=== PATIENT | male | born 1960 | race Caucasian/White ===

== ENCOUNTER 2020-11-01 13:58 | Inpatient (IN) | payer MEDICAID, OTHER ==
[~2020-11-01] VITALS: Ht 185.4 cm; Wt 90.7 kg
[~2020-11-01 13:58] MED LIST: CLINDAMYCIN HC300 MG ORAL; HYDROCODON-ACE1 EA15 ORAL; METFORMIN HCL500 M1 ORAL
--- NOTE | 2020-11-01 14:33 | Emergency Room Report ---
History of Present Illness General Chief Complaint: Generalized Weakness Source: Patient, EMS Present Illness HPI Is a 60-year-old male states he has a history of alcohol abuse stopped drinking in September, fatty liver, diabetes, hypertension who was brought in from his house by EMS for failure to thrive. Patient states that he has not been feeling well and has been weak at home. He states that he has fallen several times. He complains of abdominal distention and right upper abdominal pain. He denies any history of paracentesis. He states that his landlord came to check on him and he was found in subpar living conditions therefore EMS brought him to the e mergency room. He denies any chest pain or shortness of breath. Patient is alert and oriented x3 but very slow to respond. Allergies: Coded Allergies: No Known Allergies (Unverified , 10/02/16) COVID-19 Screening Contact w/high risk pt: No Experienced COVID-19 symptoms?: No COVID-19 Testing performed FIRST AID OFFICER: No Nursing Documentation-[facility] Past Medical History: No History, Except For Hx Hypertension: Yes Hx Diabetes: Yes Review of Systems All Other Systems: negative except mentioned in HPI Physical Exam Vital Signs Date Time Temp Pulse Resp B/P (MAP) Pulse Ox O2 Delivery O2 Flow Rate FiO2 11/01/20 13:55 98.8 102 18 112/70 (84) 98 Room Air Sp02 EP Interpretation: reviewed, normal General Appearance: no apparent distress, alert, GCS 15, non-toxic, other - Disheveled Head: normocephalic, atraumatic Eyes: bilateral eye normal inspection, bilateral eye PERRL ENT: dry mucus membranes Neck: full range of motion, supple, no meningismus Respiratory: speaking full sentences, other - Mildly tachypneic Cardiovascular #1: tachycardia Gastrointestinal: other - Distended abdomen with ascites mild right upper quadrant tenderness with no guarding or rebound Rectal: deferred Musculoskeletal: normal range of motion 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 Due to a high probability of clinically significant, life threatening deterioration, the patient required my highest level of preparedness to intervene emergently and I personally spent this critical care time directly and personally managing the patient. This critical care time included obtaining a history; examining the patient; pulse oximetry; ordering and review of studies; arranging urgent treatment with development of a management plan; evaluation of patient's response to treatment; frequent reassessment; and, discussions with other providers.This critical care time was performed to assess and manage the high probability of imminent, life- threatening deterioration that could result in multi-organ failure. It was exclusive of separately billable procedures and treating other patients and teaching time. Please see MDM section and the rest of the note for further information on patient assessment and treatment. Medical Decision Making Diagnostic Impression: Primary Impression: Severe sepsis Additional Impressions: Hypokalemia Ascites Hepatic encephalopathy ER Course Patient placed on BiPAP. Patient presents with lactate of 12 and leukocytosis. Patient given 30 cc/kg of IV fluids and started on broad-spectrum antibiotics. Patient hypokalemic with potassium of 2.9. 30 mEq of IV potassium chloride have been ordered. Therapeutic paracentesis has been ordered and is pending at the time of admission. Patient's ammonia level is 90. Patient given oral lactu lose. Patient will be admitted for further treatment and evaluation. Laboratory Tests Test 11/01/20 14:05 11/01/20 14:15 11/01/20 14:59 Arterial Blood pH 7.615 (7.350-7.450) Arterial Blood Partial Pressure CO2 45.6 mmHg (35.0-45.0) H Arterial Blood Partial Pressure O2 69.4 mmHg (75.0-100.0) L Arterial Blood HCO3 45.3 mmol/L (22.0-26.0) *H Arterial Blood Oxygen Saturation 93.2 % (95-100) L Arterial Blood Base Excess 21.5 (-2-2) *H Miguel Test Positive White Blood Count 14.4 K/UL (4.8-10.8) H Red Blood Count 3.49 M/UL (4.70-6.10) L Hemoglobin 11.9 G/DL (14.2-18.0) L Hematocrit 35.9 % (42.0-52.0) L Mean Corpuscular Volume 103 FL (80-99) H Mean Corpuscular Hemoglobin 34.0 PG (27.0-31.0) H Mean Corpuscular Hemoglobin Concent 33.1 G/DL (32.0-36.0) Red Cell Distribution Width 18.9 % (11.6-14.8) H Platelet Count 276 K/UL (150-450) Mean Platelet Volume 6.5 FL (6.5-10.1) Neutrophils (%) (Auto) 84.2 % (45.0-75.0) H Lymphocytes (%) (Auto) 7.9 % (20.0-45.0) L Monocytes (%) (Auto) 7.3 % (1.0-10.0) Eosinophils (%) (Auto) 0.1 % (0.0-3.0) Basophils (%) (Auto) 0.6 % (0.0-2.0) Prothrombin Time 16.3 SEC (9.30-11.50) H Prothrombin Time INR 1.5 (0.9-1.1) H Activated Partial Thromboplast Time 31 SEC (23-33) Sodium Level 135 MMOL/L (136-145) L Potassium Level 2.9 MMOL/L (3.5-5.1) L Chloride Level 87 MMOL/L (98-107) L Carbon Dioxide Level 44 MMOL/L (21-32) *H Anion Gap 4 mmol/L (5-15) L Blood Urea Nitrogen 34 mg/dL (7-18) H Creatinine 2.4 MG/DL (0.55-1.30) H Estimated Glomerular Filtration Rate 27.9 mL/min (>60) Glucose Level 157 MG/DL (74-106) H Lactic Acid Level 4.80 mmol/L (0.4-2.0) H Calcium Level 8.5 MG/DL (8.5-10.1) Magnesium Level 2.2 MG/DL (1.8-2.4) Total Bilirubin 4.0 MG/DL (0.2-1.0) H Direct Bilirubin 2.4 MG/DL (0.0-0.3) H Aspartate Amino Transferase (AST) 56 U/L (15-37) H Alanine Aminotransferase (ALT) 10 U/L (12-78) L Alkaline Phosphatase 104 U/L (46-116) Ammonia 89 umol/L (11-32) H Total Creatine Kinase 42 U/L (26-308) Troponin I 0.000 ng/mL (0.000-0.056) Pro-B-Type Natriuretic Peptide 939 pg/mL (0-125) H Total Protein 7.0 G/DL (6.4-8.2) Albumin 1.7 G/DL (3.4-5.0) L Globulin 5.3 g/dL Albumin/Globulin Ratio 0.3 (1.0-2.7) L Lipase 177 U/L (73-393) POC Whole Blood Glucose 153 MG/DL (74-106) H Microbiology Date/Time Source Procedure Growth Status 11/01/20 14:55 Nasal Nares - Final Complete 11/01/20 14:55 Nasal Nares - Final Complete EKG Diagnostic Results Troponin ordered: Yes When was troponin ordered?: Nov 01, 2020 EKG Time: 15:11 EP Interpretation: Cecilia Ahn MD Rate: tachycardiac - 103 bpm Rhythm: other - Sinus tachycardia ST Segments: no acute changes Other Impression prolonged QT ASA given to the pt in ED: No Rhythm Strip Diag. Results Rhythm Strip Time: 14:51 EP Interpretation: yes - Cecilia Ahn MD Rate: 108 bpm Rhythm: NSR, no PVC's, no ectopy Chest X-Ray Diagnostic Results Chest X-Ray Diagnostic Results : Chest X-Ray Ordered: Yes # of Views/Limited/Complete: 1 View Indication: Shortness of Breath EP Interpretation: Yes Interpretation: no consolidation, no effusion, no pneumothorax, no acute cardiopulmonary disease Impression: No acute disease Electronically Signed by: Cecilia Ahn MD Last Vital Signs Date Time Temp Pulse Resp B/P (MAP) Pulse Ox O2 Delivery O2 Flow Rate FiO2 11/01/20 13:55 98.8 102 18 112/70 (84) 98 Room Air Disposition: ADMITTED INPATIENT - SDU Condition: Critical - Dr. Cece MD 345pm Referrals: NOT CHOSEN IPA/,REFERRING (PCP) Additional Instructions: Please note that this report is being documented using [employer] technology. This can lead to erroneous entry secondary to incorrect interpretation by the dictating instrument. Sepsis Event Note Evaluation Current Stage of Sepsis: Severe Sepsis Possible Source: Unknown Focused Exam Allergies: Coded Allergies: No Known Allergies (Unverified , 10/02/16) Date Exam Occurred: Nov 01, 2020 Time Exam Occurred: 15:15 Laboratory Studies Laboratory Tests Test 11/01/20 14:05 11/01/20 14:15 11/01/20 14:59 Arterial Blood pH 7.615 (7.350-7.450) Arterial Blood Partial Pressure CO2 45.6 mmHg (35.0-45.0) H Arterial Blood Partial Pressure O2 69.4 mmHg (75.0-100.0) L Arterial Blood HCO3 45.3 mmol/L (22.0-26.0) *H Arterial Blood Oxygen Saturation 93.2 % (95-100) L Arterial Blood Base Excess 21.5 (-2-2) *H Miguel Test Positive White Blood Count 14.4 K/UL (4.8-10.8) H Red Blood Count 3.49 M/UL (4.70-6.10) L Hemoglobin 11.9 G/DL (14.2-18.0) L Hematocrit 35.9 % (42.0-52.0) L Mean Corpuscular Volume 103 FL (80-99) H Mean Corpuscular Hemoglobin 34.0 PG (27.0-31.0) H Mean Corpuscular Hemoglobin Concent 33.1 G/DL (32.0-36.0) Red Cell Distribution Width 18.9 % (11.6-14.8) H Platelet Count 276 K/UL (150-450) Mean Platelet Volume 6.5 FL (6.5-10.1) Neutrophils (%) (Auto) 84.2 % (45.0-75.0) H Lymphocytes (%) (Auto) 7.9 % (20.0-45.0) L Monocytes (%) (Auto) 7.3 % (1.0-10.0) Eosinophils (%) (Auto) 0.1 % (0.0-3.0) Basophils (%) (Auto) 0.6 % (0.0-2.0) Prothrombin Time 16.3 SEC (9.30-11.50) H Prothromb Time International Ratio 1.5 (0.9-1.1) H Activated Partial Thromboplast Time 31 SEC (23-33) Sodium Level 135 MMOL/L (136-145) L Potassium Level 2.9 MMOL/L (3.5-5.1) L Chloride Level 87 MMOL/L (98-107) L Carbon Dioxide Level 44 MMOL/L (21-32) *H Anion Gap 4 mmol/L (5-15) L Blood Urea Nitrogen 34 mg/dL (7-18) H Creatinine 2.4 MG/DL (0.55-1.30) H Estimat Glomerular Filtration Rate 27.9 mL/min (>60) Glucose Level 157 MG/DL (74-106) H Lactic Acid Level 4.80 mmol/L (0.4-2.0) H Calcium Level 8.5 MG/DL (8.5-10.1) Magnesium Level 2.2 MG/DL (1.8-2.4) Total Bilirubin 4.0 MG/DL (0.2-1.0) H Direct Bilirubin 2.4 MG/DL (0.0-0.3) H Aspartate Amino Transf (AST/SGOT) 56 U/L (15-37) H Alanine Aminotransferase (ALT/SGPT) 10 U/L (12-78) L Alkaline Phosphatase 104 U/L (46-116) Ammonia 89 umol/L (11-32) H Total Creatine Kinase 42 U/L (26-308) Troponin I 0.000 ng/mL (0.000-0.056) Pro-B-Type Natriuretic Peptide 939 pg/mL (0-125) H Total Protein 7.0 G/DL (6.4-8.2) Albumin 1.7 G/DL (3.4-5.0) L Globulin 5.3 g/dL Albumin/Globulin Ratio 0.3 (1.0-2.7) L Lipase 177 U/L (73-393) POC Whole Blood Glucose 153 MG/DL (74-106) H Vital Signs Last 24 Hour Vital Signs Date Time Temp Pulse Resp B/P (MAP) Pulse Ox O2 Delivery O2 Flow Rate FiO2 11/01/20 13:55 98.8 102 18 112/70 (84) 98 Room Air Respiratory Exam: Diminished Air Movement Cardiovascular Exam: Tachycardia Capillary Refill: Less Than 2 Seconds Peripheral Pulse: Cecilia Reese M.D. Nov 01, 2020 14:33
[2020-11-01 14:37] LABS: BASOPHILS % (AUTO) 0.6 % (0.0-2.0); EOSINOPHILS % (AUTO) 0.1 % (0.0-3.0); HEMATOCRIT 35.9 % (42.0-52.0); HEMOGLOBIN 11.9 G/DL (14.2-18.0); LYMPHOCYTES % (AUTO) 7.9 % (20.0-45.0); MEAN CORPUSCULAR VOLUME 103 FL (80-99); MONOCYTES % (AUTO) 7.3 % (1.0-10.0); NEUTROPHILS % (AUTO) 84.2 % (45.0-75.0); PLATELET COUNT 276 K/UL (150-450); RED BLOOD COUNT 3.49 M/UL (4.70-6.10); RED CELL DISTRIBUTION WIDTH 18.9 % (11.6-14.8); WHITE BLOOD COUNT 14.4 K/UL (4.8-10.8)
[2020-11-01 14:48] LABS: INR 1.5 (0.9-1.1)
[2020-11-01 14:51] LABS: AMMONIA 89 umol/L (11-32)
--- NOTE | 2020-11-01 15:02 | NUR ---
ED Nurse Note: pt tranported to and from CT, flu swab/covid swabs completed. pink top drawn and all labs sent. reported critical lactic to ER MD of 12.8, orders will follow
[2020-11-01 15:07] LABS: ALANINE AMINOTRANSFERASE 10 U/L (12-78); ALBUMIN 1.7 G/DL (3.4-5.0); ALBUMIN/GLOBULIN RATIO 0.3 (1.0-2.7); ALKALINE PHOSPHATASE 104 U/L (46-116); ANION GAP 4 mmol/L (5-15); ASPARTATE AMINO TRANSFERASE 56 U/L (15-37); BLOOD UREA NITROGEN 34 mg/dL (7-18); CALCIUM 8.5 MG/DL (8.5-10.1); CHLORIDE 87 MMOL/L (98-107); CREATINE KINASE 42 U/L (26-308); CREATININE 2.4 MG/DL (0.55-1.30); POTASSIUM 2.9 MMOL/L (3.5-5.1); SODIUM 135 MMOL/L (136-145)
[2020-11-01 15:10] LABS: CARBON DIOXIDE 44 MMOL/L (21-32)
[2020-11-01 15:11] LABS: BILIRUBIN,DIRECT 2.4 MG/DL (0.0-0.3)
[2020-11-01] MEDS ORDERED: Cefepime HCl 2 GM in D5W 55 ML IVPB ONE (15:15)
[2020-11-01] MEDS ORDERED: Vancomycin 1 GM in NS 275 ML IVPB ONE (15:15)
[2020-11-01] MEDS ORDERED: Lactulose 20gm/30ml UDC ORAL ONE (15:15)
[2020-11-01 15:45] VITALS: BP 112/70
--- NOTE | 2020-11-01 16:16 | Diagnostic Imaging Report ---
EXAM: CT CT Abdomen Pelvis WO Contrast INDICATION: Abdominal pain. COMPARISON: None TECHNIQUE: Axial images were obtained through the abdomen pelvis without intravenous contrast. Sagittal and coronal reformats are generated. All CT scans at this facility are performed using dose modulation techniques as appropriate to a performed exam including the following: automated exposure control with adjustment of the mA and/or kV according to patient size. RADIATION DOSE: CTDIvol: 19 mGy DLP: 784.4 mGy-cm Dose information generated by the CT scanner is available in PACS. FINDINGS: There is compressive atelectasis right lower lobe. Small right effusion noted. Right hemidiaphragm is elevated. There is a large amount of ascites. Slight nodularity of the hepatic contour noted suggestive of underlying cirrhotic changes. Spleen contains some scattered granulomas. Gallbladder is isodense to liver likely containing tumefactive sludge. The pancreas is unremarkable. Adrenals are normal in morphology. The kidneys are normal in size, shape and axis. Small bowel loops are nondistended. The colon is also nondistended with average amount of stool. The appendix is not visualized. There is no free air. No pathologic adenopathy demonstrated. Urinary bladder appears unremarkable. Degenerative changes of the lumbar spine noted. IMPRESSION: CIRRHOSIS WITH LARGE AMOUNT OF ASCITES. SPLENIC GRANULOMAS. SLUDGE IN THE GALLBLADDER. SMALL RIGHT PLEURAL EFFUSION WITH COMPRESSIVE ATELECTASIS RIGHT LOWER LOBE. ELEVATED RIGHT HEMIDIAPHRAGM.
--- NOTE | 2020-11-01 16:17 | Diagnostic Imaging Report ---
EXAM: CT CT Head no Contrast INDICATION: Altered mental status. TECHNIQUE: Axial images of the brain were obtained with subsequent sagittal and coronal reformats. All CT scans at this facility are performed using dose modulation techniques as appropriate to a performed exam including the following: automated exposure control with adjustment of the mA and/or kV according to patient size. COMPARISON STUDY: None. RADIATION DOSE: CTDIvol: 53.4 mGy DLP: 1072.2 mGy-cm Dose information generated by the CT scanner is available in PACS. FINDINGS: There is mild age-related volume loss. There is no acute large territory cortical infarct, hemorrhage, mass effect or shift. Ventricles and cisterns as well as brainstem and posterior fossa appear unremarkable. The sellar region is normal. Sinuses, mastoid air cells and bony calvarium appear intact. IMPRESSION: No acute intracranial abnormality.
--- NOTE | 2020-11-01 16:35 | Diagnostic Imaging Report ---
Procedure: XRAY Chest 1v Reason for study: Shortness of breath. Comparison films: None. FINDINGS: A single one view chest is obtained. Vascularity is normal. Right hemidiaphragm is elevated. There may be right basilar airspace disease and effusion. Cardiac and mediastinal silhouette are within normal limits. Left CP angle is sharp. The bony thorax appear unremarkable. IMPRESSION: Elevated right hemidiaphragm. Possible right basilar airspace disease and right effusion.
[2020-11-01 16:43] VITALS: BP 102/70
--- NOTE | 2020-11-01 16:43 | History & Physical ---
History and Physical History & Physicial Patient is not able to consent for abdominal paracentesis at this time due to his mental status, this procedure needs to be done to help patient. I will sign consent on behave this patient. MD Malvin Good Payam MD Nov 01, 2020 16:43
--- NOTE | 2020-11-01 17:33 | NUR ---
ED Nurse Note: gave report to ROXI Lawton. sent meds up that needed to be given, iv meds infusing. took pt off bipap transported on monitor pt in no noted distress. pt has all belongings
--- NOTE | 2020-11-01 17:38 | NUR ---
NURSE NOTES: Received patient from ED. Report given by Josué Mooney. Patient in stable condition. No pain or discomfort noted at this time. Patient on Bipap 8/4 FiO2 30%. Patient belongings done. Patient AO x3. Skin intact. Bed in lowest position, locked with side rails x2 up. Call light within reach.
--- NOTE | 2020-11-01 18:49 | NUR ---
NURSE HAND-OFF REPORT: Important Events on Shift:Admitted to SDU from ER Patient Status: Stable Diet: CCHO M Pending Orders: NA Pending Results/Labs:NA Pending MD notification:NA Latest Vital Signs: Temperature 98.8 , Pulse 94 , B/P 102 /70 , Respiratory Rate 21 , O2 SAT 100 , Bi-pap, O2 Flow Rate . Vital Sign Comment: Stable EKG Rhythm: Sinus Rhythm Rhythm change?: N MD Notified?: - MD Response: Latest Childs Fall Score: 60 Fall Risk: High Risk Safety Measures: Call light Within Reach, Bed Alarm Zone 2, Side Rails Side Rails x1, Bed position Low and Locked. Fall Precautions: Yellow Socks Report given to pending.
--- NOTE | 2020-11-01 19:25 | NUR ---
NURSE NOTES: Received report from See. Jessica RN. Pt is lyin in bed in semi- shelton's position. pt is alert oriented x 2-3 with confusion. Pt is verbally responsive and follow simple commands. Pt has ascites, no diffculty of breathing noted or respiratory distress noted. Pt denies pain. Pt in BIPAP 8/4 fio2 30%, o2 sat- 100%. With LAC g20 intact and patent and Right wrist g22 intact and patent. no Coughing noted. Pt voids. Alarm- on, call light within reach. Bed in lowest position. Continue to plan of care.
[2020-11-01 20:00] VITALS: BP 102/61
[2020-11-01] MEDS: Heparin 5000 units/ml inj SUBQ SCH (20:45)
[2020-11-01] MEDS ORDERED: Vancomycin 500mg/D5W 110ml IVPB ONE ×2 (21:00)
[2020-11-01] MEDS: NovoLOG Insulin Flexpen SUBQ SCH (21:00)
[2020-11-01] MEDS ORDERED: Cefepime HCl 1 GM in D5W 55 ML IVPB SCH (21:00)
--- NOTE | 2020-11-01 22:00 | NUR ---
NURSE NOTES: Seen by Dr. Coombs, made him aware of ascites, order for paracentesis tomorrow AM. Made him aware pt is stable in 100% BIPAP and when patient was off bipap in 15min. Ordered to wean off pt to BIPAP.
[2020-11-01] MEDS: Piperacillin/Tazobactam 3.375 GM in NS 110 ML IVPB SCH (22:35)
--- NOTE | 2020-11-01 23:07 | NUR ---
NURSE NOTES: Unable to get a consent for paracentesis, pt is confused and family doesn't have number. Will add social service consult. Informed Dr. Coombs, per Dr. Coombs will wrote in progress noted that unable to contact family and consented that pt needed to undergone paracentesis.
[2020-11-02] VITALS (7 sets, daily range): BP systolic 96–126; BP diastolic 59–78
--- NOTE | 2020-11-02 00:24 | NUR ---
NURSE NOTES: Pt tolerating well the NRB mask at 100%.
--- NOTE | 2020-11-02 00:34 | NUR ---
NURSE NOTES: Per Dr. Coombs no need for gastro consult at this time.
--- NOTE | 2020-11-02 02:03 | NUR ---
NURSE NOTES: Cleaned pt, condom cath applied. Noted yellow urine. No distress. Noted Wound, wound care done. Ordered wound care eval. Bilateral heels floated.
--- NOTE | 2020-11-02 02:11 | NUR ---
NURSE NOTES: Noted an uneven shape on right foot, will refer in AM with Dr. Coombs.
--- NOTE | 2020-11-02 05:12 | NUR ---
NURSE NOTES: Pt is sleeping, follow commands, doesn't get up in bed, not pulling devices but with episode of confusion.
[2020-11-02] MEDS: Piperacillin/Tazobactam 3.375 GM in NS 110 ML IVPB SCH ×3 (05:28→21:35)
[2020-11-02] MEDS: NovoLOG Insulin Flexpen SUBQ SCH ×4 (05:34→21:34)
[2020-11-02 07:02] LABS: EOSINOPHILS % (AUTO) 0.4 % (0.0-3.0); HEMATOCRIT 28.9 % (42.0-52.0); HEMOGLOBIN 9.9 G/DL (14.2-18.0); MEAN CORPUSCULAR VOLUME 101 FL (80-99); MONOCYTES % (AUTO) 10.2 % (1.0-10.0); NEUTROPHILS % (AUTO) 79.4 % (45.0-75.0); PLATELET COUNT 201 K/UL (150-450); RED BLOOD COUNT 2.87 M/UL (4.70-6.10); RED CELL DISTRIBUTION WIDTH 18.8 % (11.6-14.8); WHITE BLOOD COUNT 12.1 K/UL (4.8-10.8)
[2020-11-02 07:30] LABS: ALBUMIN 1.7 G/DL (3.4-5.0); ALBUMIN/GLOBULIN RATIO 0.4 (1.0-2.7); BILIRUBIN,TOTAL 3.7 MG/DL (0.2-1.0); CALCIUM 8.2 MG/DL (8.5-10.1); CREATININE 2.1 MG/DL (0.55-1.30); PHOSPHORUS 4.4 MG/DL (2.5-4.9)
[2020-11-02 07:32] LABS: BILIRUBIN,DIRECT 2.1 MG/DL (0.0-0.3); POTASSIUM 2.5 MMOL/L (3.5-5.1)
--- NOTE | 2020-11-02 07:35 | NUR ---
NURSE HAND-OFF REPORT: Important Events on Shift: Wean off to venturi mask at 14L 55%- tolerating well. Pt for paracentesis (+) consent. Potassium lab just called endorsed to AM 2.5. AM nurse aware Patient Status: guarded and stable Diet: Consistent carb Pending Orders: NOne Pending Results/Labs: None Pending MD notification: none Latest Vital Signs: Temperature 97.9 , Pulse 89 , B/P 105 /71 , Respiratory Rate 21 , O2 SAT 100 , Bi-pap, O2 Flow Rate 15.0 . Vital Sign Comment: WNL EKG Rhythm: Sinus Rhythm Rhythm change?: N MD Notified?: - MD Response: Latest Childs Fall Score: 70 Fall Risk: High Risk Safety Measures: Call light Within Reach, Bed Alarm Zone 2, Side Rails Side Rails x3, Bed position Low and Locked. Fall Precautions: Yellow Socks Yellow Gown Door Sign Patient Fall Education Report given to [Mayra Card, RN].
--- NOTE | 2020-11-02 07:51 | NUR ---
NURSE NOTES: pt in bed awake and had breakfast. Pt on hospital monitor no signs of cardiac distress, on ventury mask. Pt complains of abdominal pain. Bed is locked and in lowest position call light within reach. pt will have a paracenthesis at bedside today. notified doctor Malvin about pt's latest labs.
[2020-11-02] MEDS ORDERED: Acetaminophen 500mg (ES) tab ORAL PRN (08:45)
[2020-11-02] MEDS: Heparin 5000 units/ml inj SUBQ SCH ×2 (08:45→20:29)
[2020-11-02] MEDS: Acetaminophen 500mg (ES) tab ORAL PRN (08:58)
[2020-11-02] MEDS: Lactulose 20gm/30ml UDC ORAL SCH ×3 (09:00→17:51)
--- NOTE | 2020-11-02 09:43 | Consultation ---
History of Present Illness General Date patient seen: Nov 02, 2020 Time patient seen: 12:08 Chief Complaint: Generalized Weakness Referring physician: Dr. Coombs Reason for Consultation: Sepsis Present Illness HPI 60yo M w/ h/o EtOH abuse who p/w failure to thrive. ID c/s given sepsis, possible infection. In house, pt has been AF but on BiPAP and now NRB mask for O2 sat. Leukocytosis to 14 improving on abx Distended abd w/ massive ascites Pt reports over the past few weeks has gotten progressively weaker, ultimately came in here. Abd has had progressive distension, never had paracentesis prior. TTP all over in abd but worse in RUQ. Denies any fevers/chills, NVD Endorses dysuria and pain w/ walking PMH: EtOH abuse, stopped drinking in Sep 2020 Tobacco use, 2ppd [id number], quit recently Prior drug use, none in past 2 years Fatty liver DM2 HTN Allergies: Coded Allergies: No Known Allergies (Unverified , 10/02/16) Medication History Scheduled Clindamycin Hcl (Clindamycin Hcl), 300 MG ORAL THREE TIMES A DAY Metformin Hcl* (Metformin Hcl*), 500 MG ORAL TWICE A DAY, (Reported) Scheduled PRN Hydrocodone/Acetaminophen 5-325* (Hydrocodone/Acetaminophen 5-325*), 1 TAB ORAL Q6H PRN for For Pain Patient History Healthcare decision maker N Resuscitation status Advanced Directive on File Review of Systems ROS Narrative 10-point neg except as noted in HPI Physical Exam Physical Exam Narrative Gen: NAD HEENT: NCAT, EOMI Pulm: BL chest rise Abd: Distended w/ massive ascites, TTP mildly diffusely and worse in RUQ, no rebound/guarding Ext: No c/c/e Skin: No visible rashes Neuro: Awake, interactive, very slow to answer questions Last 24 Hour Vital Signs Date Time Temp Pulse Resp B/P (MAP) Pulse Ox O2 Delivery O2 Flow Rate FiO2 11/02/20 08:00 97.5 97 22 111/78 (89) 98 11/02/20 04:00 89 11/02/20 04:00 97.9 87 21 105/71 (82) 100 11/02/20 04:00 15.0 11/02/20 04:00 Non-Rebreather 15.0 11/02/20 00:00 97.7 92 20 104/76 (85) 100 11/02/20 00:00 89 11/02/20 00:00 Bi-pap 11/01/20 21:00 15.0 11/01/20 20:00 Bi-pap 11/01/20 20:00 97.5 91 20 102/61 (75) 98 11/01/20 20:00 91 11/01/20 20:00 91 11/01/20 20:00 30 11/01/20 20:00 30 11/01/20 19:13 91 18 98 30 11/01/20 17:54 94 11/01/20 17:38 Bi-pap 11/01/20 16:43 98.8 94 21 102/70 100 Bi-pap 30 11/01/20 16:24 94 Room Air 11/01/20 15:45 98.8 95 18 112/70 99 Bi-pap 11/01/20 15:42 94 18 97 30 11/01/20 13:55 98.8 102 18 112/70 (84) 98 Room Air Intake and Output 11/01/20 11/02/20 19:00 07:00 Intake Total 0 ml 610.0 ml Balance 0 ml 610.0 ml Intake Oral 0 ml 500 ml IV Total 110.0 ml # Voids 2 # Bowel Movements 2 Laboratory Tests Test 11/01/20 14:05 11/01/20 14:15 11/01/20 14:59 11/02/20 06:09 Arterial Blood pH 7.615 (7.350-7.450) Arterial Blood Partial Pressure CO2 45.6 mmHg (35.0-45.0) H Arterial Blood Partial Pressure O2 69.4 mmHg (75.0-100.0) L Arterial Blood HCO3 45.3 mmol/L (22.0-26.0) *H Arterial Blood Oxygen Saturation 93.2 % (95-100) L Arterial Blood Base Excess 21.5 (-2-2) *H Miguel Test Positive White Blood Count 14.4 K/UL (4.8-10.8) H 12.1 K/UL (4.8-10.8) H Red Blood Count 3.49 M/UL (4.70-6.10) L 2.87 M/UL (4.70-6.10) L Hemoglobin 11.9 G/DL (14.2-18.0) L 9.9 G/DL (14.2-18.0) L Hematocrit 35.9 % (42.0-52.0) L 28.9 % (42.0-52.0) L Mean Corpuscular Volume 103 FL (80-99) H 101 FL (80-99) H Mean Corpuscular Hemoglobin 34.0 PG (27.0-31.0) H 34.6 PG (27.0-31.0) H Mean Corpuscular Hemoglobin Concent 33.1 G/DL (32.0-36.0) 34.3 G/DL (32.0-36.0) Red Cell Distribution Width 18.9 % (11.6-14.8) H 18.8 % (11.6-14.8) H Platelet Count 276 K/UL (150-450) 201 K/UL (150-450) Mean Platelet Volume 6.5 FL (6.5-10.1) 6.2 FL (6.5-10.1) L Neutrophils (%) (Auto) 84.2 % (45.0-75.0) H 79.4 % (45.0-75.0) H Lymphocytes (%) (Auto) 7.9 % (20.0-45.0) L 8.0 % (20.0-45.0) L Monocytes (%) (Auto) 7.3 % (1.0-10.0) 10.2 % (1.0-10.0) H Eosinophils (%) (Auto) 0.1 % (0.0-3.0) 0.4 % (0.0-3.0) Basophils (%) (Auto) 0.6 % (0.0-2.0) 2.0 % (0.0-2.0) Prothrombin Time 16.3 SEC (9.30-11.50) H Prothromb Time International Ratio 1.5 (0.9-1.1) H Activated Partial Thromboplast Time 31 SEC (23-33) Sodium Level 135 MMOL/L (136-145) L 136 MMOL/L (136-145) Potassium Level 2.9 MMOL/L (3.5-5.1) L 2.5 MMOL/L (3.5-5.1) *L Chloride Level 87 MMOL/L (98-107) L 89 MMOL/L (98-107) L Carbon Dioxide Level 44 MMOL/L (21-32) *H 39 MMOL/L (21-32) H Anion Gap 4 mmol/L (5-15) L 9 mmol/L (5-15) Blood Urea Nitrogen 34 mg/dL (7-18) H 33 mg/dL (7-18) H Creatinine 2.4 MG/DL (0.55-1.30) H 2.1 MG/DL (0.55-1.30) H Estimat Glomerular Filtration Rate 27.9 mL/min (>60) 32.6 mL/min (>60) Glucose Level 157 MG/DL (74-106) H 105 MG/DL (74-106) Lactic Acid Level 4.80 mmol/L (0.4-2.0) H Calcium Level 8.5 MG/DL (8.5-10.1) 8.2 MG/DL (8.5-10.1) L Magnesium Level 2.2 MG/DL (1.8-2.4) 2.0 MG/DL (1.8-2.4) Total Bilirubin 4.0 MG/DL (0.2-1.0) H 3.7 MG/DL (0.2-1.0) H Direct Bilirubin 2.4 MG/DL (0.0-0.3) H 2.1 MG/DL (0.0-0.3) H Aspartate Amino Transf (AST/SGOT) 56 U/L (15-37) H 48 U/L (15-37) H Alanine Aminotransferase (ALT/SGPT) 10 U/L (12-78) L 9 U/L (12-78) L Alkaline Phosphatase 104 U/L (46-116) 91 U/L (46-116) Ammonia 89 umol/L (11-32) H 69 umol/L (11-32) H Total Creatine Kinase 42 U/L (26-308) Troponin I 0.000 ng/mL (0.000-0.056) Pro-B-Type Natriuretic Peptide 939 pg/mL (0-125) H Total Protein 7.0 G/DL (6.4-8.2) 6.3 G/DL (6.4-8.2) L Albumin 1.7 G/DL (3.4-5.0) L 1.7 G/DL (3.4-5.0) L Globulin 5.3 g/dL 4.6 g/dL Albumin/Globulin Ratio 0.3 (1.0-2.7) L 0.4 (1.0-2.7) L Lipase 177 U/L (73-393) POC Whole Blood Glucose 153 MG/DL (74-106) H Phosphorus Level 4.4 MG/DL (2.5-4.9) Hepatitis A IgM Antibody Pending Hepatitis B Surface Antigen Pending Hepatitis B Core IgM Antibody Pending Hepatitis C Antibody Pending HIV (1&2) Antibody Rapid Pending Microbiology Date/Time Source Procedure Growth Status 11/01/20 14:55 Nasal Nares - Final Complete 11/01/20 14:55 Nasal Nares - Final Complete Height (Feet): 6 Height (Inches): 1.00 Weight (Pounds): 200 Medications Current Medications Medications (Trade) Dose Ordered Sig/Kylah Route PRN Reason Start Time Stop Time Status Last Admin Dose Admin Acetaminophen (Tylenol) 500 mg Q6H PRN ORAL Mild Pain 11/02/20 08:30 12/02/20 08:29 11/02/20 08:58 Acetaminophen (Tylenol) 500 mg Q6H PRN ORAL fever > 100.2 11/02/20 08:45 12/02/20 08:44 Dextrose (Dextrose 50%) 25 ml Q30M PRN IV Hypoglycemia 11/01/20 18:30 01/30/21 18:29 Dextrose (Dextrose 50%) 50 ml Q30M PRN IV Hypoglycemia 11/01/20 18:30 01/30/21 18:29 Heparin Sodium (Porcine) (Heparin 5000 units/ml) 5,000 units EVERY 12 HOURS SUBQ 11/01/20 21:00 12/16/20 20:59 11/01/20 20:45 Insulin Aspart (NovoLOG) BEFORE MEALS AND HS SUBQ 11/01/20 21:00 01/30/21 20:59 Lactulose (Cephulac) 30 gm THREE TIMES A DAY ORAL 11/02/20 09:00 12/02/20 08:59 11/02/20 09:00 Magnesium Sulfate 100 ml @ 100 mls/hr ONCE ONCE IVPB 11/02/20 08:45 11/02/20 09:44 Piperacillin Sod/ Tazobactam Sod 3.375 gm/Sodium Chloride 110 ml @ 27.5 mls/hr EVERY 8 HOURS IVPB 11/01/20 22:00 11/06/20 21:59 11/02/20 05:28 Potassium Chloride 100 ml @ 100 mls/hr Q1H IVPB 11/02/20 09:00 11/02/20 12:59 11/02/20 09:00 Potassium Chloride (K-Dur) 40 meq ONCE ORAL 11/02/20 08:30 11/02/20 10:30 11/02/20 08:56 Potassium Chloride (K-Dur) 40 meq ONCE ORAL 11/02/20 16:30 11/02/20 18:30 Vancomycin HCl (Vanco pharmacy to dose) 1 ea DAILY PRN MISC Per rx protocol 11/01/20 18:30 12/01/20 18:29 Assessment/Plan Assessment/Plan: 60yo M with: Sepsis Afebrile Hypoxia on BiPAP >> NRB mask >> venti mask Leukocytosis to 14, improving Lymphopenia 11/01 BCx p COVID PCR p CXR: Elevated right hemidiaphragm. Possible right basilar airspace disease and right effusion. CTH: No acute process EtOH abuse Cirrhosis, Fatty liver Masive ascites Elevated AST to 48 Acute hep panel p 11/01 CT A/P: CIRRHOSIS WITH LARGE AMOUNT OF ASCITES. SPLENIC GRANULOMAS. SLUDGE IN THE GALLBLADDER. SMALL RIGHT PLEURAL EFFUSION WITH COMPRESSIVE ATELECTASIS RIGHT LOWER LOBE. ELEVATED RIGHT HEMIDIAPHRAGM. 11/02 Paracentesis ordered - cell count and diff and cx ordered DAVIDE vs CKD, Cr 2.4, improving PMH: EtOH abuse, stopped drinking in Sep 2020 Fatty liver DM2 HTN Plan: Cont empiric vanco/Zosyn #2 for now Agree with paracentesis, send fluid for cell count and diff and bacterial cx (ordered) F/u HIV screen, acute hep panel F/u COVID PCR F/u BCx Trend WBC Monitor CBC/CMP Monitor temp curve, hemodynamics Monitor resp status D/w RN Thank you for this consult. [facility] will continue to follow. Viviana Casper M.D. Nov 02, 2020 09:43
--- NOTE | 2020-11-02 11:25 | NUR ---
CASE MANAGEMENT:REVIEW 60 YR OLD MALE BIBA CC: GENERALIZED WEAKNESS SI: SEPSIS. ASCITES. HEPATIC ENCEPHALOPATHY HYPOKALEMIA 98.7 102 18 112/70 98% ON RA WBC+14.4 IS: IV ALBUMIN X1 IV KCL X3 LACTULOSE PO X1 IV CEFEPIME X1 IV VANCOMYCIN X1 IVF NS CT HEAD CT ABD/PELVIS CXR BLOOD CX : TO STEP DOWN UNIT PLAN: PARACENTESIS ORDERED
--- NOTE | 2020-11-02 11:45 | General Progress Note ---
Subjective ROS Limited/Unobtainable: No Allergies: Coded Allergies: No Known Allergies (Unverified , 10/02/16) Objective Last 24 Hour Vital Signs Date Time Temp Pulse Resp B/P (MAP) Pulse Ox O2 Delivery O2 Flow Rate FiO2 11/02/20 08:00 97.5 97 22 111/78 (89) 98 11/02/20 07:52 99 11/02/20 04:00 89 11/02/20 04:00 97.9 87 21 105/71 (82) 100 11/02/20 04:00 15.0 11/02/20 04:00 Non-Rebreather 15.0 11/02/20 00:00 97.7 92 20 104/76 (85) 100 11/02/20 00:00 89 11/02/20 00:00 Bi-pap 11/01/20 21:00 15.0 11/01/20 20:00 Bi-pap 11/01/20 20:00 97.5 91 20 102/61 (75) 98 11/01/20 20:00 91 11/01/20 20:00 91 11/01/20 20:00 30 11/01/20 20:00 30 11/01/20 19:13 91 18 98 30 11/01/20 17:54 94 11/01/20 17:38 Bi-pap 11/01/20 16:43 98.8 94 21 102/70 100 Bi-pap 30 11/01/20 16:24 94 Room Air 11/01/20 15:45 98.8 95 18 112/70 99 Bi-pap 11/01/20 15:42 94 18 97 30 11/01/20 13:55 98.8 102 18 112/70 (84) 98 Room Air Intake and Output 11/01/20 11/02/20 19:00 07:00 Intake Total 0 ml 610.0 ml Balance 0 ml 610.0 ml Intake Oral 0 ml 500 ml IV Total 110.0 ml # Voids 2 # Bowel Movements 2 Laboratory Tests 11/01/20 14:05: Arterial Blood pH 7.615*H, Arterial Blood Partial Pressure CO2 45.6H, Arterial Blood Partial Pressure O2 69.4L, Arterial Blood HCO3 45.3*H, Arterial Blood Oxygen Saturation 93.2L, Arterial Blood Base Excess 21.5*H, Miguel Test Positive 11/01/20 14:15: White Blood Count 14.4H, Red Blood Count 3.49L, Hemoglobin 11.9L, Hematocrit 35.9L, Mean Corpuscular Volume 103H, Mean Corpuscular Hemoglobin 34.0H, Mean Corpuscular Hemoglobin Concent 33.1, Red Cell Distribution Width 18.9H, Platelet Count 276, Mean Platelet Volume 6.5, Neutrophils (%) (Auto) 84.2H, Lymphocytes (%) (Auto) 7.9L, Monocytes (%) (Auto) 7.3, Eosinophils (%) (Auto) 0.1, Basophils (%) (Auto) 0.6, Prothrombin Time 16.3H, Prothromb Time International Ratio 1.5H, Activated Partial Thromboplast Time 31, Sodium Level 135L, Potassium Level 2.9L, Chloride Level 87L, Carbon Dioxide Level 44*H, Anion Gap 4L, Blood Urea Nitrogen 34H, Creatinine 2.4H, Estimat Glomerular Filtration Rate 27.9, Glucose Level 157H, Lactic Acid Level 4.80H, Calcium Level 8.5, Magnesium Level 2.2, Total Bilirubin 4.0H, Direct Bilirubin 2.4H, Aspartate Amino Transf (AST/SGOT) 56H, Alanine Aminotransferase (ALT/SGPT) 10L, Alkaline Phosphatase 104, Ammonia 89H, Total Creatine Kinase 42, Troponin I 0.000, Pro-B-Type Natriuretic Peptide 939H, Total Protein 7.0, Albumin 1.7L, Globulin 5.3, Albumin/Globulin Ratio 0.3L, Lipase 177 11/01/20 14:59: POC Whole Blood Glucose 153H 11/02/20 06:09: White Blood Count 12.1H, Red Blood Count 2.87L, Hemoglobin 9.9L, Hematocrit 28.9L, Mean Corpuscular Volume 101H, Mean Corpuscular Hemoglobin 34.6H, Mean Corpuscular Hemoglobin Concent 34.3, Red Cell Distribution Width 18.8H, Platelet Count 201, Mean Platelet Volume 6.2L, Neutrophils (%) (Auto) 79.4H, Lymphocytes (%) (Auto) 8.0L, Monocytes (%) (Auto) 10.2H, Eosinophils (%) (Auto) 0.4, Basophils (%) (Auto) 2.0, Sodium Level 136, Potassium Level 2.5*L, Chloride Level 89L, Carbon Dioxide Level 39H, Anion Gap 9, Blood Urea Nitrogen 33H, Creatinine 2.1H, Estimat Glomerular Filtration Rate 32.6, Glucose Level 105, Calcium Level 8.2L, Magnesium Level 2.0, Total Bilirubin 3.7H, Direct Bilirubin 2.1H, Aspartate Amino Transf (AST/SGOT) 48H, Alanine Aminotransferase (ALT/SGPT) 9L, Alkaline Phosphatase 91, Ammonia 69H, Total Protein 6.3L, Albumin 1.7L, Globulin 4.6, Albumin/Globulin Ratio 0.4L, Phosphorus Level 4.4, Hepatitis A IgM Antibody [Pending], Hepatitis B Surface Antigen [Pending], Hepatitis B Core IgM Antibody [Pending], Hepatitis C Antibody [Pending], HIV (1&2) Antibody Rapid [Pending] 11/02/20 09:38: Arterial Blood pH 7.559*H, Arterial Blood Partial Pressure CO2 46.3H, Arterial Blood Partial Pressure O2 111.7H, Arterial Blood HCO3 40.4*H, Arterial Blood Oxygen Saturation 97.8, Arterial Blood Base Excess 16.4*H, Miguel Test Positive Height (Feet): 6 Height (Inches): 1.00 Weight (Pounds): 200 General Appearance: no apparent distress EENT: PERRL/EOMI Neck: supple Cardiovascular: normal rate Respiratory/Chest: decreased breath sounds Abdomen: soft, hypoactive bowel sounds, distended Extremities: non-tender Assessment/Plan Problem List: (1) Cirrhosis ICD Codes: K74.60 - Unspecified cirrhosis of liver SNOMED: 16815175 (2) Hepatic encephalopathy ICD Codes: K72.90 - Hepatic failure, unspecified without coma; R65.20 - Severe sepsis without septic shock SNOMED: 29565591 (3) Hypokalemia ICD Codes: E87.6 - Hypokalemia; R65.20 - Severe sepsis without septic shock SNOMED: 25673340 (4) Ascites ICD Codes: R18.8 - Other ascites SNOMED: 747957539 (5) Severe sepsis ICD Codes: A41.9 - Sepsis, unspecified organism; R65.20 - Severe sepsis without septic shock SNOMED: 46305551 (6) AMS (altered mental status) ICD Codes: R41.82 - Altered mental status, unspecified SNOMED: 330583441 Assessment/Plan: pending paracentesis iv albumin ammonia level fu hepatitis panel Mejia Encarnacion MD Nov 02, 2020 11:45
--- NOTE | 2020-11-02 12:49 | Consultation ---
Consult Note Consult Note I am asked to evaluate the patient at the request of Dr. Coombs for renal failure management and electrolyte adjustment Emergency room note: Chief Complaint: Generalized Weakness Is a 60-year-old male states he has a history of alcohol abuse stopped drinking in September, fatty liver, diabetes, hypertension who was brought in from his house by EMS for failure to thrive. Patient states that he has not been feeling well and has been weak at home. He states that he has fallen several times. He complains of abdominal distention and right upper abdominal pain. He denies any history of paracentesis. He states that his landlord came to check on him and he was found in subpar living conditions therefore EMS brought him to the emergency room. He denies any chest pain or shortness of breath. Patient is alert and oriented x3 but very slow to respond. Allergies: No Known Allergies (Unverified , 10/02/16) COVID-19 Screening Contact w/high risk pt: No Experienced COVID-19 symptoms?: No COVID-19 Testing performed FINANCIAL REPORTING ANALYST: No Past Medical History: No History, Except For Hx Hypertension: Yes Hx Diabetes: Yes Vital Signs Date Time Temp Pulse Resp B/P (MAP) Pulse Ox O2 Delivery O2 Flow Rate FiO2 11/01/20 13:55 98.8 102 18 112/70 (84) 98 Room Air PHYSICAL EXAMINATION: VITAL SIGNS: On admission, temperature 98.8, pulse of 102, respirations 18, and blood pressure 112/70. GENERAL: The patient is awake, responsive, on a BiPAP. HEAD AND NECK: Pupils are reactive to light. Extraocular muscles intact. Neck was supple. No JVD. LUNGS: Good air entry. No wheezing or rhonchi. Decreased air in the bases. HEART: S1 and S2. Distant heart sounds. No murmur or gallop. ABDOMEN: Soft. Distended. Fluid shift. No rebound tenderness. EXTREMITIES: No cyanosis, clubbing, or edema. NEUROLOGIC: Cranial nerves II through XII grossly intact. The patient is moving all the extremities. Gait was not assessed due to the patient's status. RECTAL/: Refused and deferred. LABORATORY AND DIAGNOSTIC DATA: On admission, WBC of 14, hemoglobin of 11, hematocrit 35, platelets are 276,000. Sodium 135, potassium 2.9, chloride 87, bicarbonate 44, BUN 34, creatinine 2.4, GFR is 27, and glucose is 157. Lactate is 4.8, calcium is 8.5, and magnesium 2.2. Total bilirubin of 4.0, direct bilirubin of 2.4, AST of 56, and ALT of 10. Troponin 0.00. ProBNP of 939. Lipase is 177. PT of 60, INR 1.1, and PTT of 31. The patient's chest x-ray, evidence of right hemidiaphragm, possible right airspace disease and right effusion. CT of the head, no acute intracranial abnormality. CT of the abdomen and pelvis, cirrhosis with a large amount of ascites, splenic granuloma, sludge in the gallbladder, small right pleural effusion with compressive atelectasis of right lobe, and elevated right hemidiaphragm. . Assessment/Plan Renal failure most likely acute on chronic Electrolyte imbalances, hypokalemia Sepsis Hepatic encephalopathy, ascites, fatty liver Anemia History of EtOH abuse, history of tobacco abuse, history of drug abuse Diabetes mellitus type 2 Hypertension Lymphopenia, leukocytosis, hypoxia Plan: Trial of 3% saline and albumin bolus Potassium supplement Monitor renal parameters, ammonia, electrolytes ordered Kalin Pozo MD Nov 02, 2020 12:49
[2020-11-02] MEDS ORDERED: NaCl 3% 500ml 250 ML IV ONE (15:00)
[2020-11-02] MEDS: Midodrine 10mg tab ORAL SCH ×2 (15:07→21:39)
--- NOTE | 2020-11-02 15:59 | Pre-Procedure Note/Attestation ---
Pre-Procedure Note/Attestation Complete Prior to Procedure Planned Procedure: not applicable Procedure Narrative: paracentesis Indications for Procedure Pre-Operative Diagnosis: ascites Attestation I attest that I discussed the nature of the procedure; its benefits; risks and complications; and alternatives (and the risks and benefits of such alternatives), prior to the procedure, with the patient (or the patient's legal automobile sales representative). I attest that, if there was a reasonable possibility of needing a blood fermin sfusion, the patient (or the patient's legal automobile sales representative) was given the [facility] standardized written summary, pursuant to the Christopher Yohan Blood Safety Act ([place] Health and Safety Code # 1645, as amended). I attest that I re-evaluated the patient just prior to the surgery and that there has been no change in the patient's H&P, except as documented below: Aman Love MD Nov 02, 2020 15:59
--- NOTE | 2020-11-02 16:01 | Brief Operative Note ---
Immediate Post Operative Note Operative Note Pre-op Diagnosis: ascites Procedure: paracentesis Post-op Diagnosis: same as pre-op Surgeon: Primitivo Huber Anesthesia: local Specimen: yes - 50 ml fluid saved and sent to lab Complications: none Fluids: none Implant(s) used?: No Aman Huber MD Nov 02, 2020 16:01
--- NOTE | 2020-11-02 16:47 | Diagnostic Imaging Report ---
Indications: Ascites Technique: Ultrasound used to localize optimal puncture site. Sterile prepping and draping right lower quadrant. Local anesthesia with 1% lidocaine. Under real-time ultrasound guidance, puncture peritoneal space using paracentesis needle. Stylet removed. Catheter placed to vacuum bottle suction. Total 10.2 liters of fluid aspirated. Patient tolerated procedure well, without immediate complication. Findings: Followup sonography demonstrates near complete resolution of peritoneal fluid. Impression: Successful ultrasound-guided paracentesis, yielding 10.2 liters of fluid
--- NOTE | 2020-11-02 17:12 | NUR ---
NURSE NOTES:WOUND CARE NOTES:Pt presented on admission with DTPI Thoracic Spine(L)1.8cm x (W)1cm. Base of Pressure Injury is purpuric with surrounding non-blanchable erythema. Pt complained of tenderness at site. Non-Blanchable erythema without induration noted to Sacrum,R and L Gluteal cheeks including Bilat Ischial tuberosities. Rocker bottom foot noted to Both R and L feet. Both heels are callused,dry and easily blanchable. Tx.Plan: Apply Cavilon Skin Barrier To Thoracic DTPI. Cover with Optifoam drsg. Change every 3 days and prn. Apply Moisture Barrier Paste to Sacrum. Cover with Optifoam drsg. Change every 3 days and prn. Apply Cavilon Skin Barrier to R and L gluteal cheeks and Bilat Ischial tuberosities with each Incontinence care. Reposition at least every 2Hours or as tolerated. Off-load heels with pillow.
--- NOTE | 2020-11-02 18:12 | Internal Med Progress Note ---
Subjective Physician Name Ramon Coombs Attending Physician Ramon Coombs MD Current Medications Medications (Trade) Dose Ordered Sig/Kylah Route PRN Reason Start Time Stop Time Status Last Admin Dose Admin Acetaminophen (Tylenol) 500 mg Q6H PRN ORAL Mild Pain 11/02/20 08:30 12/02/20 08:29 11/02/20 08:58 Acetaminophen (Tylenol) 500 mg Q6H PRN ORAL fever > 100.2 11/02/20 08:45 12/02/20 08:44 Dextrose (Dextrose 50%) 25 ml Q30M PRN IV Hypoglycemia 11/01/20 18:30 01/30/21 18:29 Dextrose (Dextrose 50%) 50 ml Q30M PRN IV Hypoglycemia 11/01/20 18:30 01/30/21 18:29 Heparin Sodium (Porcine) (Heparin 5000 units/ml) 5,000 units EVERY 12 HOURS SUBQ 11/01/20 21:00 12/16/20 20:59 11/01/20 20:45 Insulin Aspart (NovoLOG) BEFORE MEALS AND HS SUBQ 11/01/20 21:00 01/30/21 20:59 Lactulose (Cephulac) 30 gm THREE TIMES A DAY ORAL 11/02/20 09:00 12/02/20 08:59 11/02/20 17:51 Midodrine (Pro-Amatine) 10 mg Q8HR ORAL 11/02/20 14:00 01/31/21 13:59 11/02/20 15:07 Pantoprazole (Protonix) 40 mg EVERY 12 HOURS ORAL 11/02/20 21:00 12/02/20 20:59 Piperacillin Sod/ Tazobactam Sod 3.375 gm/Sodium Chloride 110 ml @ 27.5 mls/hr EVERY 8 HOURS IVPB 11/01/20 22:00 11/06/20 21:59 11/02/20 15:54 Potassium Chloride (K-Dur) 20 meq TWICE A DAY ORAL 11/02/20 18:00 11/03/20 17:59 Potassium Chloride (K-Dur) 40 meq ONCE ORAL 11/02/20 16:30 11/02/20 18:30 11/02/20 17:52 Rifaximin (Xifaxan) 550 mg EVERY 12 HOURS ORAL 11/02/20 21:00 11/09/20 20:59 Sodium Chloride 250 ml @ 30 mls/hr ONCE ONCE IV 11/02/20 15:00 11/02/20 23:19 11/02/20 15:45 Vancomycin HCl ([facility] pharmacy to dose) 1 ea DAILY PRN MISC Per rx protocol 11/01/20 18:30 12/01/20 18:29 Allergies: Coded Allergies: No Known Allergies (Unverified , 10/02/16) Subjective awake, alert, responsive, on a Ventimask, no acute distress. Objective Last Vital Signs Date Time Temp Pulse Resp B/P (MAP) Pulse Ox O2 Delivery O2 Flow Rate FiO2 11/02/20 16:00 Venturi Mask 14.0 11/02/20 16:00 82 11/02/20 08:00 97.5 22 111/78 (89) 98 11/02/20 07:00 55 Laboratory Tests Test 11/02/20 06:09 11/02/20 09:38 11/02/20 12:36 11/02/20 17:45 White Blood Count 12.1 K/UL (4.8-10.8) H Red Blood Count 2.87 M/UL (4.70-6.10) L Hemoglobin 9.9 G/DL (14.2-18.0) L Hematocrit 28.9 % (42.0-52.0) L Mean Corpuscular Volume 101 FL (80-99) H Mean Corpuscular Hemoglobin 34.6 PG (27.0-31.0) H Mean Corpuscular Hemoglobin Concent 34.3 G/DL (32.0-36.0) Red Cell Distribution Width 18.8 % (11.6-14.8) H Platelet Count 201 K/UL (150-450) Mean Platelet Volume 6.2 FL (6.5-10.1) L Neutrophils (%) (Auto) 79.4 % (45.0-75.0) H Lymphocytes (%) (Auto) 8.0 % (20.0-45.0) L Monocytes (%) (Auto) 10.2 % (1.0-10.0) H Eosinophils (%) (Auto) 0.4 % (0.0-3.0) Basophils (%) (Auto) 2.0 % (0.0-2.0) Sodium Level 136 MMOL/L (136-145) Potassium Level 2.5 MMOL/L (3.5-5.1) *L Chloride Level 89 MMOL/L (98-107) L Carbon Dioxide Level 39 MMOL/L (21-32) H Anion Gap 9 mmol/L (5-15) Blood Urea Nitrogen 33 mg/dL (7-18) H Creatinine 2.1 MG/DL (0.55-1.30) H Estimat Glomerular Filtration Rate 32.6 mL/min (>60) Glucose Level 105 MG/DL (74-106) Calcium Level 8.2 MG/DL (8.5-10.1) L Phosphorus Level 4.4 MG/DL (2.5-4.9) Magnesium Level 2.0 MG/DL (1.8-2.4) Total Bilirubin 3.7 MG/DL (0.2-1.0) H Direct Bilirubin 2.1 MG/DL (0.0-0.3) H Aspartate Amino Transf (AST/SGOT) 48 U/L (15-37) H Alanine Aminotransferase (ALT/SGPT) 9 U/L (12-78) L Alkaline Phosphatase 91 U/L (46-116) Ammonia 69 umol/L (11-32) H Total Protein 6.3 G/DL (6.4-8.2) L Albumin 1.7 G/DL (3.4-5.0) L Globulin 4.6 g/dL Albumin/Globulin Ratio 0.4 (1.0-2.7) L Hepatitis A IgM Antibody Pending Hepatitis B Surface Antigen Pending Hepatitis B Core IgM Antibody Pending Hepatitis C Antibody Pending HIV (1&2) Antibody Rapid Pending Arterial Blood pH 7.559 (7.350-7.450) Arterial Blood Partial Pressure CO2 46.3 mmHg (35.0-45.0) H Arterial Blood Partial Pressure O2 111.7 mmHg (75.0-100.0) H Arterial Blood HCO3 40.4 mmol/L (22.0-26.0) *H Arterial Blood Oxygen Saturation 97.8 % (95-100) Arterial Blood Base Excess 16.4 (-2-2) *H Miguel Test Positive POC Whole Blood Glucose 152 MG/DL (74-106) H Random Vancomycin Level Pending Test 11/02/20 17:49 POC Whole Blood Glucose 147 MG/DL (74-106) H Microbiology Date/Time Source Procedure Growth Status 11/01/20 14:55 Nasopharynx Coronavirus COVID-19 PCR (REGIS) - Final Complete 11/01/20 14:55 Nasal Nares - Final Complete 11/01/20 14:55 Nasal Nares - Final Complete Intake and Output 11/01/20 11/02/20 19:00 07:00 Intake Total 0 ml 610.0 ml Balance 0 ml 610.0 ml Intake Oral 0 ml 500 ml IV Total 110.0 ml # Voids 2 # Bowel Movements 2 Objective General: No acute distress, awake and alert HEENT: NCAT, sclera anicteric, PERRL, EOMI. Neck: Supple, no significant jugular venous distention, Lungs: Fair inspiratory effort, , no Wheeze or Rales. Heart: Regular rate and rhythm, normal S1/S2, no murmurs Abdomen: soft, nontender, +distended. positive fluid shift, bowel sound present. / Rectal: Refused and deferred. Extremities: No Cyanosis , clubbing or edema. Neuro: A&O x 3, Able to move all extremities Skin: warm, no rash Assessment/Plan Assessment/Plan Sepsis Acute Hypoxia on BiPAP >> NRB mask >> venti mask alcohol abuse Liver Cirrhosis, Fatty liver Massive ascites DAVIDE vs CKD DM2 HTN Plan: Cont empiric vanco/Zosyn High volume paracentesis, F/u COVID PCR F/u BCx monitor laboratory in a.m. Discussed with the son over the phone extensively with regard to the plan of care and therapy. Ramon Coombs MD Nov 02, 2020 18:12
--- NOTE | 2020-11-02 19:30 | NUR ---
NURSE NOTES: Report received from ROXI Oconnor. Observed pt lying in the bed. A/O x3, able to make needs known. SR noted. On venturi 14L, 55%. Condom cath in placed. IV on L AC 20G, intact. R W 22G intact. S/P paracentesis noted. Bed in the lowest position. Call light within reach. Will continue to monitor.
[2020-11-02] MEDS ORDERED: Vancomycin 1.25gm/250ml Premix IVPB ONE (20:00)
--- NOTE | 2020-11-02 20:04 | NUR ---
NURSE HAND-OFF REPORT: Important Events on Shift:[]10.2 L out from paracenthesis cultures were collected and sent to lab Patient Status: []full Diet: []Regular Pending Orders: [] Pending Results/Labs:[] Pending MD notification:[] Latest Vital Signs: Temperature 97.8 , Pulse 83 , B/P 96 /59 , Respiratory Rate 20 , O2 SAT 100 , Bi-pap, O2 Flow Rate 14.0 . Vital Sign Comment: [] EKG Rhythm: Sinus Rhythm Rhythm change?: N MD Notified?: - MD Response: Latest Childs Fall Score: 70 Fall Risk: High Risk Safety Measures: Call light Within Reach, Bed Alarm Zone 2, Side Rails Side Rails x3, Bed position Low and Locked. Fall Precautions: y Yellow Socks y Yellow Gown y Door Sign Patient Fall Education y Report given to [].Alexis/ROXI
--- NOTE | 2020-11-02 22:58 | NUR ---
NURSE NOTES: Pt lying in the bed, sleeping. SR noted. On venturi 14L, 55%, saturating 96%. Bed bath given. Loose bm noted x1. Will continue to monitor.
[2020-11-03] VITALS: BP 101/60
--- NOTE | 2020-11-03 01:56 | NUR ---
NURSE NOTES: Pt sleeping at this time. No acute change noted. SR noted. On venturi, 14L, saturating at 99%. Will continue to monitor.
[2020-11-03 04:00] VITALS: BP 104/55
[2020-11-03 04:50] LABS: BASOPHILS % (AUTO) 0.5 % (0.0-2.0); EOSINOPHILS % (AUTO) 0.4 % (0.0-3.0); HEMATOCRIT 27.9 % (42.0-52.0); HEMOGLOBIN 9.6 G/DL (14.2-18.0); LYMPHOCYTES % (AUTO) 10.3 % (20.0-45.0); MEAN CORPUSCULAR VOLUME 104 FL (80-99); MONOCYTES % (AUTO) 7.2 % (1.0-10.0); NEUTROPHILS % (AUTO) 81.7 % (45.0-75.0); PLATELET COUNT 157 K/UL (150-450); RED BLOOD COUNT 2.69 M/UL (4.70-6.10); WHITE BLOOD COUNT 11.1 K/UL (4.8-10.8)
[2020-11-03 04:52] LABS: INR 1.5 (0.9-1.1)
--- NOTE | 2020-11-03 05:10 | NUR ---
NURSE NOTES: Pt lying in the bed. SR noted. VS stable. Bed bath given. Noted pt incontinent. was unable to collect urine. Applied condom cath again. Will continue to monitor.
[2020-11-03 05:17] LABS: AMMONIA 52 umol/L (11-32)
[2020-11-03 05:29] LABS: PHOSPHORUS 3.9 MG/DL (2.5-4.9)
[2020-11-03 05:31] LABS: ALANINE AMINOTRANSFERASE 9 U/L (12-78); ALBUMIN 1.7 G/DL (3.4-5.0); ALBUMIN/GLOBULIN RATIO 0.4 (1.0-2.7); ALKALINE PHOSPHATASE 85 U/L (46-116); ANION GAP 4 mmol/L (5-15); ASPARTATE AMINO TRANSFERASE 40 U/L (15-37); BILIRUBIN,TOTAL 2.5 MG/DL (0.2-1.0); BLOOD UREA NITROGEN 36 mg/dL (7-18); CALCIUM 7.5 MG/DL (8.5-10.1); CHLORIDE 96 MMOL/L (98-107); CHOLESTEROL 111 MG/DL (< 200); CREATININE 2.4 MG/DL (0.55-1.30); FERRITIN 886 NG/ML (8-388); HDL CHOLESTEROL 9 MG/DL (40-60); POTASSIUM 2.9 MMOL/L (3.5-5.1); SODIUM 141 MMOL/L (136-145); TRIGLYCERIDES 175 MG/DL (30-150)
[2020-11-03 05:40] LABS: BILIRUBIN,DIRECT 1.3 MG/DL (0.0-0.3); CARBON DIOXIDE 41 MMOL/L (21-32)
[2020-11-03] MEDS: NovoLOG Insulin Flexpen SUBQ SCH ×4 (05:52→21:00)
[2020-11-03] MEDS: Piperacillin/Tazobactam 3.375 GM in NS 110 ML IVPB SCH ×3 (05:58→21:08)
[2020-11-03] MEDS: Midodrine 10mg tab ORAL SCH ×3 (05:58→21:08)
--- NOTE | 2020-11-03 07:20 | NUR ---
NURSE HAND-OFF REPORT: Important Events on Shift: Tolerating Venti mask 14L, 55%. Patient Status: VS stable. SBP 90-100 on midodrine po Diet: CCHO M Pending Orders: [] Pending Results/Labs:[] Pending MD notification:[] Latest Vital Signs: Temperature 97.6 , Pulse 81 , B/P 104 /55 , Respiratory Rate 20 , O2 SAT 99 , Bi-pap, O2 Flow Rate 14.0 . Vital Sign Comment: [] EKG Rhythm: Sinus Rhythm Rhythm change?: N MD Notified?: - MD Response: Latest Childs Fall Score: 70 Fall Risk: High Risk Safety Measures: Call light Within Reach, Bed Alarm Zone 2, Side Rails Side Rails x3, Bed position Low and Locked. Fall Precautions: Yellow Socks Yellow Gown Door Sign Patient Fall Education Report given to ROXI Kelly.
[2020-11-03 08:00] VITALS: BP 97/44
--- NOTE | 2020-11-03 08:00 | NUR ---
NURSE NOTES: Pt was assessed after receiving change of shift report from Robert DIANE. Pt is awake, oriented to name only, confused, calm, watching TV. Denies any pain or discomfort at this time. On Venturi mask 14L, 55% FIO2 at 100% O2Sat. Bilateral diminished lung sounds. NSR per tele monitor. Temp 97.3F axillary. Peripheral IV access present left AC #20G, right wrist #22G, both saline locked, patent/intact. Abdomen is large, distended, round, hard to touch, with active bowel sounds, slightly tender to touch per pt report. Condom catheter is draining dark anirudh/yellow urine, pt is oliguric. Skin is intact, with sacral and right heel/foot DTI. HOB is at high shelton's, bed locked/ in lowest position, three side rails up. Will continue with plan of care.
[2020-11-03] MEDS: Lactulose 20gm/30ml UDC ORAL SCH ×3 (09:10→17:58)
[2020-11-03] MEDS: Heparin 5000 units/ml inj SUBQ SCH ×2 (09:13→21:12)
--- NOTE | 2020-11-03 09:26 | Infectious Diseases Prog Note ---
Assessment/Plan 60yo M with: Sepsis Afebrile Hypoxia on BiPAP >> NRB mask >> venti mask Leukocytosis to 14, improving Lymphopenia 11/01 BCx NTD COVID PCR neg CXR: Elevated right hemidiaphragm. Possible right basilar airspace disease and right effusion. CTH: No acute process EtOH abuse Cirrhosis, Fatty liver Masive ascites Elevated AST to 48 Acute hep panel p 11/01 CT A/P: CIRRHOSIS WITH LARGE AMOUNT OF ASCITES. SPLENIC GRANULOMAS. SLUDGE IN THE GALLBLADDER. SMALL RIGHT PLEURAL EFFUSION WITH COMPRESSIVE ATELECTASIS RIGHT LOWER LOBE. ELEVATED RIGHT HEMIDIAPHRAGM. 11/02 Paracentesis, 10.2L removed 838 RBC, 142 WBC, 2%PMN, 94%[facility] Cx - NTD DAVIDE vs CKD, Cr 2.4, improving PMH: EtOH abuse, stopped drinking in Sep 2020 Fatty liver DM2 HTN Plan: Stop vanco #2 given no resistant gram positive organisms on cx Cont empiric Zosyn #3 for possible pna, less likely SBP F/u HIV screen, acute hep panel F/u BCx - NTD F/u 11/02 paracentesis cx - NTD Trend WBC - improving Monitor CBC/CMP Monitor temp curve, hemodynamics Monitor resp status D/w RN Thank you for this consult. [facility] will continue to follow. Subjective Allergies: Coded Allergies: No Known Allergies (Unverified , 10/02/16) AF Satting well on 14L venturi mask Feeling much better, no more R sided abd pain after 10L paracentesis yetersay WBC 11, improving Objective Last 24 Hour Vital Signs Date Time Temp Pulse Resp B/P (MAP) Pulse Ox O2 Delivery O2 Flow Rate FiO2 11/03/20 08:00 92 11/03/20 07:20 99 Venturi Mask 14.0 55 11/03/20 04:00 97.6 73 20 104/55 (71) 99 11/03/20 04:00 Venturi Mask 14.0 11/03/20 04:00 81 11/03/20 00:42 78 11/03/20 00:00 97.5 73 20 101/60 (74) 100 11/03/20 00:00 Venturi Mask 14.0 11/02/20 20:00 Venturi Mask 14.0 11/02/20 20:00 80 11/02/20 20:00 97.0 95 20 99/68 (78) 98 11/02/20 19:44 98 Venturi Mask 14.0 55 11/02/20 16:00 Venturi Mask 14.0 11/02/20 16:00 82 11/02/20 16:00 97.8 83 20 96/59 (71) 100 11/02/20 12:00 Venturi Mask 14.0 11/02/20 12:00 97.9 86 22 126/78 (94) 100 11/02/20 12:00 Venturi Mask 14.0 11/02/20 11:40 88 Height (Feet): 6 Height (Inches): 1.00 Weight (Pounds): 200 Gen: NAD HEENT: NCAT, EOMI Pulm: BL chest rise on venti mask Abd: Less distended than prior, soft, NT Ext: No c/c/e Neuro: Awake, interactive, slow to answer questions Microbiology Date/Time Source Procedure Growth Status 11/02/20 13:27 Ascities Fluid Gram Stain - Final Resulted 11/02/20 13:27 Ascities Fluid Body Fluid Culture - Preliminary NO GROWTH Resulted 11/01/20 14:55 Nasopharynx Coronavirus COVID-19 PCR (REGIS) - Final Complete 11/01/20 14:55 Nasal Nares - Final Complete 11/01/20 14:55 Nasal Nares - Final Complete 11/01/20 14:15 Blood Blood Culture - Preliminary NO GROWTH AFTER 24 HOURS Resulted 11/01/20 14:00 Blood Blood Culture - Preliminary NO GROWTH AFTER 24 HOURS Resulted Laboratory Tests Test 11/02/20 09:38 11/02/20 12:36 11/02/20 13:21 11/02/20 17:45 Arterial Blood pH 7.559 (7.350-7.450) Arterial Blood Partial Pressure CO2 46.3 mmHg (35.0-45.0) H Arterial Blood Partial Pressure O2 111.7 mmHg (75.0-100.0) H Arterial Blood HCO3 40.4 mmol/L (22.0-26.0) *H Arterial Blood Oxygen Saturation 97.8 % (95-100) Arterial Blood Base Excess 16.4 (-2-2) *H Miguel Test Positive POC Whole Blood Glucose 152 MG/DL (74-106) H Body Fluid Source Paracentesis Body Fluid Volume 24 mL Body Fluid Appearance Hazy (Clear) Body Fluid RBC 838 /CUMM Body Fluid Total Nucleated Cells 142 /CUMM Body Fluid Polynuclear WBCs (%) 2 % Body Fluid Mononuclear WBCs (%) 94 % Body Fluid Mesothelial Cells (%) 4 % Body Fluid Comment Random Vancomycin Level 12.3 ug/mL Test 11/02/20 17:49 11/02/20 20:34 11/03/20 03:15 11/03/20 05:41 POC Whole Blood Glucose 147 MG/DL (74-106) H 181 MG/DL (74-106) H 114 MG/DL (74-106) H White Blood Count 11.1 K/UL (4.8-10.8) H Red Blood Count 2.69 M/UL (4.70-6.10) L Hemoglobin 9.6 G/DL (14.2-18.0) L Hematocrit 27.9 % (42.0-52.0) L Mean Corpuscular Volume 104 FL (80-99) H Mean Corpuscular Hemoglobin 35.9 PG (27.0-31.0) H Mean Corpuscular Hemoglobin Concent 34.6 G/DL (32.0-36.0) Red Cell Distribution Width 19.0 % (11.6-14.8) H Platelet Count 157 K/UL (150-450) Mean Platelet Volume 6.0 FL (6.5-10.1) L Neutrophils (%) (Auto) 81.7 % (45.0-75.0) H Lymphocytes (%) (Auto) 10.3 % (20.0-45.0) L Monocytes (%) (Auto) 7.2 % (1.0-10.0) Eosinophils (%) (Auto) 0.4 % (0.0-3.0) Basophils (%) (Auto) 0.5 % (0.0-2.0) Prothrombin Time 16.1 SEC (9.30-11.50) H Prothromb Time International Ratio 1.5 (0.9-1.1) H Activated Partial Thromboplast Time 33 SEC (23-33) Sodium Level 141 MMOL/L (136-145) Potassium Level 2.9 MMOL/L (3.5-5.1) L Chloride Level 96 MMOL/L (98-107) L Carbon Dioxide Level 41 MMOL/L (21-32) *H Anion Gap 4 mmol/L (5-15) L Blood Urea Nitrogen 36 mg/dL (7-18) H Creatinine 2.4 MG/DL (0.55-1.30) H Estimat Glomerular Filtration Rate 27.9 mL/min (>60) Glucose Level 111 MG/DL (74-106) H Hemoglobin A1c 4.1 % (4.3-6.0) L Uric Acid 11.0 MG/DL (2.6-7.2) H Calcium Level 7.5 MG/DL (8.5-10.1) L Phosphorus Level 3.9 MG/DL (2.5-4.9) Magnesium Level 2.2 MG/DL (1.8-2.4) Ferritin 886 NG/ML (8-388) H Total Bilirubin 2.5 MG/DL (0.2-1.0) H Direct Bilirubin 1.3 MG/DL (0.0-0.3) H Gamma Glutamyl Transpeptidase 55 U/L (5-85) Aspartate Amino Transf (AST/SGOT) 40 U/L (15-37) H Alanine Aminotransferase (ALT/SGPT) 9 U/L (12-78) L Alkaline Phosphatase 85 U/L (46-116) Ammonia 52 umol/L (11-32) H C-Reactive Protein, Quantitative 9.2 mg/dL (0.00-0.90) H Pro-B-Type Natriuretic Peptide 1812 pg/mL (0-125) H Total Protein 5.8 G/DL (6.4-8.2) L Albumin 1.7 G/DL (3.4-5.0) L Globulin 4.1 g/dL Albumin/Globulin Ratio 0.4 (1.0-2.7) L Triglycerides Level 175 MG/DL (30-150) H Cholesterol Level 111 MG/DL (< 200) LDL Cholesterol 77 mg/dL (<100) HDL Cholesterol 9 MG/DL (40-60) L Cholesterol/HDL Ratio 12.3 (3.3-4.4) H Lipase 202 U/L (73-393) Vitamin B12 Level 819 PG/ML (193-986) Vitamin D 25-Hydroxy Pending 25-Hydroxy Vitamin D2 Pending 25-Hydroxy Vitamin D3 Pending Folate 2.1 NG/ML (8.6-58.9) L Thyroid Stimulating Hormone (TSH) 1.497 uiU/mL (0.358-3.740) Current Medications Medications (Trade) Dose Ordered Sig/Kylah Route PRN Reason Start Time Stop Time Status Last Admin Dose Admin Acetaminophen (Tylenol) 500 mg Q6H PRN ORAL Mild Pain 11/02/20 08:30 12/02/20 08:29 11/02/20 08:58 Acetaminophen (Tylenol) 500 mg Q6H PRN ORAL fever > 100.2 11/02/20 08:45 12/02/20 08:44 Dextrose (Dextrose 50%) 25 ml Q30M PRN IV Hypoglycemia 11/01/20 18:30 01/30/21 18:29 Dextrose (Dextrose 50%) 50 ml Q30M PRN IV Hypoglycemia 11/01/20 18:30 01/30/21 18:29 Heparin Sodium (Porcine) (Heparin 5000 units/ml) 5,000 units EVERY 12 HOURS SUBQ 11/01/20 21:00 12/16/20 20:59 11/03/20 09:13 Insulin Aspart (NovoLOG) BEFORE MEALS AND HS SUBQ 11/01/20 21:00 01/30/21 20:59 11/02/20 21:34 Lactulose (Cephulac) 30 gm THREE TIMES A DAY ORAL 11/02/20 09:00 12/02/20 08:59 11/03/20 09:10 Midodrine (Pro-Amatine) 10 mg Q8HR ORAL 11/02/20 14:00 01/31/21 13:59 11/03/20 05:58 Pantoprazole (Protonix) 40 mg EVERY 12 HOURS ORAL 11/02/20 21:00 12/02/20 20:59 11/03/20 09:10 Piperacillin Sod/ Tazobactam Sod 3.375 gm/Sodium Chloride 110 ml @ 27.5 mls/hr EVERY 8 HOURS IVPB 11/01/20 22:00 11/06/20 21:59 11/03/20 05:58 Potassium Chloride (K-Dur) 20 meq TWICE A DAY ORAL 11/02/20 18:00 11/03/20 17:59 11/03/20 09:10 Rifaximin (Xifaxan) 550 mg EVERY 12 HOURS ORAL 11/02/20 21:00 11/09/20 20:59 11/03/20 09:10 Vancomycin HCl ([facility] pharmacy to dose) 1 ea DAILY PRN MISC Per rx protocol 11/01/20 18:30 12/01/20 18:29 Viviana Casper M.D. Nov 03, 2020 09:26
--- NOTE | 2020-11-03 10:30 | NUR ---
NURSE NOTES: AM meds were administered. VS remain stable. Pt was seen by Dr. Steele. Pt is having loose liquid stool post Lactulose administration. Mental status improved compared to yesterday's observation, less confused now, oriented to name.
[2020-11-03 12:00] VITALS: BP 105/69
[2020-11-03] MEDS ORDERED: Dyna-Hex 2% Top Sol 2oz TOPIC SCH (13:30)
--- NOTE | 2020-11-03 13:30 | NUR ---
NURSE NOTES: Pt was seen by Dr Pozo. MD aware of AM lab results. Order received for Hernandez catheter insertion. Hernandez 16F was inserted, and urine specimen collected per MD order.
--- NOTE | 2020-11-03 13:52 | NUR ---
NURSE NOTES: urine sent to lab. Patient cleaned and linen changed.
[2020-11-03 13:59] LABS: APPEARANCE,URINE CLEAR; BILIRUBIN, URINE NEGATIVE (NEGATIVE); GLUCOSE, URINE (UA) NEGATIVE (NEGATIVE); KETONES,URINE 1+ (NEGATIVE); LEUKOCYTE ESTERASE ,URINE 1+ (NEGATIVE); NITRITE,URINE NEGATIVE (NEGATIVE); PH,URINE 5 (4.5-8.0); PROTEIN,URINE 2+ (NEGATIVE); UROBILINOGEN,URINE 1 MG/DL (0.0-1.0)
[2020-11-03 14:00] LABS: COLOR,URINE YELLOW
--- NOTE | 2020-11-03 14:00 | NUR ---
NURSE NOTES: Pt is being administered KCL 10meq x2 bags per order to replace K=2.9.
--- NOTE | 2020-11-03 14:05 | Nephrology Progress Note ---
Assessment/Plan Problem List: (1) Renal failure (ARF), acute on chronic (2) Electrolyte imbalance (3) Hypokalemia (4) Cirrhosis (5) DMII (diabetes mellitus, type 2) (6) Anemia (7) HTN (hypertension) Assessment Renal failure most likely acute on chronic Electrolyte imbalances, hypokalemia Sepsis Hepatic encephalopathy, ascites, fatty liver Anemia History of EtOH abuse, history of tobacco abuse, history of drug abuse Diabetes mellitus type 2 Hypertension Lymphopenia, leukocytosis, hypoxia Plan November 03: Labs reviewed. Medication list reviewed. Abnormal electrolyte addressed. Continue monitor renal parameters. Continue per consultants. Previously: Trial of 3% saline and albumin bolus Potassium supplement Monitor renal parameters, ammonia, electrolytes ordered Subjective ROS Limited/Unobtainable: Yes Objective Objective Last 24 Hour Vital Signs Date Time Temp Pulse Resp B/P (MAP) Pulse Ox O2 Delivery O2 Flow Rate FiO2 11/03/20 12:00 98.2 99 20 105/69 (81) 99 11/03/20 12:00 Venturi Mask 14.0 11/03/20 12:00 93 11/03/20 08:00 97.3 73 20 97/44 (61) 95 11/03/20 08:00 Venturi Mask 14.0 11/03/20 08:00 92 11/03/20 07:20 99 Venturi Mask 14.0 55 11/03/20 04:00 97.6 73 20 104/55 (71) 99 11/03/20 04:00 Venturi Mask 14.0 11/03/20 04:00 81 11/03/20 00:42 78 11/03/20 00:00 97.5 73 20 101/60 (74) 100 11/03/20 00:00 Venturi Mask 14.0 11/02/20 20:00 Venturi Mask 14.0 11/02/20 20:00 80 11/02/20 20:00 97.0 95 20 99/68 (78) 98 11/02/20 19:44 98 Venturi Mask 14.0 55 11/02/20 16:00 Venturi Mask 14.0 11/02/20 16:00 82 11/02/20 16:00 97.8 83 20 96/59 (71) 100 Intake and Output 11/02/20 11/03/20 19:00 07:00 Intake Total 270 ml 647.5 ml Balance 270 ml 647.5 ml Intake Oral 240 ml 500 ml IV Total 30 ml 147.5 ml # Voids 2 # Bowel Movements 1 4 Current Medications Medications (Trade) Dose Ordered Sig/Kylah Route PRN Reason Start Time Stop Time Status Last Admin Dose Admin Acetaminophen (Tylenol) 500 mg Q6H PRN ORAL Mild Pain 11/02/20 08:30 12/02/20 08:29 11/02/20 08:58 Acetaminophen (Tylenol) 500 mg Q6H PRN ORAL fever > 100.2 11/02/20 08:45 12/02/20 08:44 Chlorhexidine Gluconate (Stacy-Hex 2%) 1 applic ONCE TOPIC 11/03/20 13:30 11/03/20 16:00 11/03/20 13:56 Dextrose (Dextrose 50%) 25 ml Q30M PRN IV Hypoglycemia 11/01/20 18:30 01/30/21 18:29 Dextrose (Dextrose 50%) 50 ml Q30M PRN IV Hypoglycemia 11/01/20 18:30 01/30/21 18:29 Folic Acid (Folate) 3 mg DAILY ORAL 11/03/20 13:15 12/03/20 13:14 11/03/20 13:53 Heparin Sodium (Porcine) (Heparin 5000 units/ml) 5,000 units EVERY 12 HOURS SUBQ 11/01/20 21:00 12/16/20 20:59 11/03/20 09:13 Insulin Aspart (NovoLOG) BEFORE MEALS AND HS SUBQ 11/01/20 21:00 01/30/21 20:59 11/02/20 21:34 Lactulose (Cephulac) 30 gm THREE TIMES A DAY ORAL 11/02/20 09:00 12/02/20 08:59 11/03/20 12:59 Midodrine (Pro-Amatine) 10 mg Q8HR ORAL 11/02/20 14:00 01/31/21 13:59 11/03/20 12:59 Pantoprazole (Protonix) 40 mg EVERY 12 HOURS ORAL 11/02/20 21:00 12/02/20 20:59 11/03/20 09:10 Piperacillin Sod/ Tazobactam Sod 3.375 gm/Sodium Chloride 110 ml @ 27.5 mls/hr EVERY 8 HOURS IVPB 11/01/20 22:00 11/06/20 21:59 11/03/20 12:59 Potassium Chloride 100 ml @ 100 mls/hr Q1H IVPB 11/03/20 13:15 11/03/20 15:14 11/03/20 13:53 Potassium Chloride (K-Dur) 20 meq TWICE A DAY ORAL 11/02/20 18:00 11/03/20 09:10 Rifaximin (Xifaxan) 550 mg EVERY 12 HOURS ORAL 11/02/20 21:00 11/09/20 20:59 11/03/20 09:10 Laboratory Tests 11/02/20 17:45: Random Vancomycin Level 12.3 11/02/20 17:49: POC Whole Blood Glucose 147H 11/02/20 20:34: POC Whole Blood Glucose 181H 11/03/20 03:15: White Blood Count 11.1H, Red Blood Count 2.69L, Hemoglobin 9.6L, Hematocrit 27.9L, Mean Corpuscular Volume 104H, Mean Corpuscular Hemoglobin 35.9H, Mean Corpuscular Hemoglobin Concent 34.6, Red Cell Distribution Width 19.0H, Platelet Count 157, Mean Platelet Volume 6.0L, Neutrophils (%) (Auto) 81.7H, Lymphocytes (%) (Auto) 10.3L, Monocytes (%) (Auto) 7.2, Eosinophils (%) (Auto) 0.4, Basophils (%) (Auto) 0.5, Prothrombin Time 16.1H, Prothromb Time International Ratio 1.5H, Activated Partial Thromboplast Time 33, Sodium Level 141, Potassium Level 2.9L, Chloride Level 96L, Carbon Dioxide Level 41*H, Anion Gap 4L, Blood Urea Nitrogen 36H, Creatinine 2.4H, Estimat Glomerular Filtration Rate 27.9, Glucose Level 111H, Hemoglobin A1c 4.1L, Uric Acid 11.0H, Calcium Level 7.5L, Phosphorus Level 3.9, Magnesium Level 2.2, Ferritin 886H, Total Bilirubin 2.5H, Direct Bilirubin 1.3H, Gamma Glutamyl Transpeptidase 55, Aspartate Amino Transf (AST/SGOT) 40H, Alanine Aminotransferase (ALT/SGPT) 9L, Alkaline Phosphatase 85, Ammonia 52H, C-Reactive Protein, Quantitative 9.2H, Pro-B-Type Natriuretic Peptide 1812H, Total Protein 5.8L, Albumin 1.7L, Globulin 4.1, Albumin/Globulin Ratio 0.4L, Triglycerides Level 175H, Cholesterol Level 111, LDL Cholesterol 77, HDL Cholesterol 9L, Cholesterol/HDL Ratio 12.3H, Lipase 202, Vitamin B12 Level 819, Vitamin D 25-Hydroxy [Pending], 25-Hydroxy Vitamin D2 [Pending], 25-Hydroxy Vitamin D3 [Pending], Folate 2.1L, Thyroid Stimulating Hormone (TSH) 1.497 11/03/20 05:41: POC Whole Blood Glucose 114H 11/03/20 11:52: POC Whole Blood Glucose 128H 11/03/20 13:30: Urine Color Yellow, Urine Appearance Clear, Urine pH 5, Urine Specific [place] 1.020, Urine Protein 2+H, Urine Glucose (UA) Negative, Urine Ketones 1+H, Urine Blood 1+H, Urine Nitrite Negative, Urine Bilirubin Negative, Urine Urobilinogen 1H, Urine Leukocyte Esterase 1+H, Urine RBC [Pending], Urine WBC [Pending], Urine Squamous Epithelial Cells [Pending], Urine Bacteria [Pending], Urine Random Sodium [Pending] Height (Feet): 6 Height (Inches): 1.00 Weight (Pounds): 200 General Appearance: lethargic EENT: other - On Venturi mask Cardiovascular: normal rate Respiratory/Chest: decreased breath sounds Abdomen: distended Kalin Pozo MD Nov 03, 2020 14:05
[2020-11-03 16:00] VITALS: BP 85/57
--- NOTE | 2020-11-03 16:51 | NUR ---
NURSE NOTES: Pt is having dinner and watching dinner, able to tolerate PO consumption with venturi mask off face, O2Sat 94%.
--- NOTE | 2020-11-03 17:12 | Internal Med Progress Note ---
Subjective Date of Service: Nov 03, 2020 Physician Name Jered Case Attending Physician Ramon Coombs MD Current Medications Medications (Trade) Dose Ordered Sig/Kylah Route PRN Reason Start Time Stop Time Status Last Admin Dose Admin Acetaminophen (Tylenol) 500 mg Q6H PRN ORAL Mild Pain 11/02/20 08:30 12/02/20 08:29 11/02/20 08:58 Acetaminophen (Tylenol) 500 mg Q6H PRN ORAL fever > 100.2 11/02/20 08:45 12/02/20 08:44 Dextrose (Dextrose 50%) 25 ml Q30M PRN IV Hypoglycemia 11/01/20 18:30 01/30/21 18:29 Dextrose (Dextrose 50%) 50 ml Q30M PRN IV Hypoglycemia 11/01/20 18:30 01/30/21 18:29 Folic Acid (Folate) 3 mg DAILY ORAL 11/03/20 13:15 12/03/20 13:14 11/03/20 13:53 Heparin Sodium (Porcine) (Heparin 5000 units/ml) 5,000 units EVERY 12 HOURS SUBQ 11/01/20 21:00 12/16/20 20:59 11/03/20 09:13 Insulin Aspart (NovoLOG) BEFORE MEALS AND HS SUBQ 11/01/20 21:00 01/30/21 20:59 11/03/20 16:30 Lactulose (Cephulac) 30 gm THREE TIMES A DAY ORAL 11/02/20 09:00 12/02/20 08:59 11/03/20 12:59 Midodrine (Pro-Amatine) 10 mg Q8HR ORAL 11/02/20 14:00 01/31/21 13:59 11/03/20 12:59 Pantoprazole (Protonix) 40 mg EVERY 12 HOURS ORAL 11/02/20 21:00 12/02/20 20:59 11/03/20 09:10 Piperacillin Sod/ Tazobactam Sod 3.375 gm/Sodium Chloride 110 ml @ 27.5 mls/hr EVERY 8 HOURS IVPB 11/01/20 22:00 11/06/20 21:59 11/03/20 12:59 Potassium Chloride (K-Dur) 20 meq TWICE A DAY ORAL 11/02/20 18:00 11/03/20 09:10 Rifaximin (Xifaxan) 550 mg EVERY 12 HOURS ORAL 11/02/20 21:00 11/09/20 20:59 11/03/20 09:10 Allergies: Coded Allergies: No Known Allergies (Unverified , 10/02/16) ROS Limited/Unobtainable: Yes Subjective 60 YO M with history of alcohol dependence admitted with shortness of breath. Now respiratroy failure. Cover for Int Patricio-DR Coombs. Step down unit Objective Last Vital Signs Date Time Temp Pulse Resp B/P (MAP) Pulse Ox O2 Delivery O2 Flow Rate FiO2 11/03/20 16:00 Venturi Mask 14.0 11/03/20 16:00 90 11/03/20 12:00 98.2 20 105/69 (81) 99 11/03/20 07:20 55 Laboratory Tests Test 11/02/20 17:45 11/02/20 17:49 11/02/20 20:34 11/03/20 03:15 Random Vancomycin Level 12.3 ug/mL POC Whole Blood Glucose 147 MG/DL (74-106) H 181 MG/DL (74-106) H White Blood Count 11.1 K/UL (4.8-10.8) H Red Blood Count 2.69 M/UL (4.70-6.10) L Hemoglobin 9.6 G/DL (14.2-18.0) L Hematocrit 27.9 % (42.0-52.0) L Mean Corpuscular Volume 104 FL (80-99) H Mean Corpuscular Hemoglobin 35.9 PG (27.0-31.0) H Mean Corpuscular Hemoglobin Concent 34.6 G/DL (32.0-36.0) Red Cell Distribution Width 19.0 % (11.6-14.8) H Platelet Count 157 K/UL (150-450) Mean Platelet Volume 6.0 FL (6.5-10.1) L Neutrophils (%) (Auto) 81.7 % (45.0-75.0) H Lymphocytes (%) (Auto) 10.3 % (20.0-45.0) L Monocytes (%) (Auto) 7.2 % (1.0-10.0) Eosinophils (%) (Auto) 0.4 % (0.0-3.0) Basophils (%) (Auto) 0.5 % (0.0-2.0) Prothrombin Time 16.1 SEC (9.30-11.50) H Prothromb Time International Ratio 1.5 (0.9-1.1) H Activated Partial Thromboplast Time 33 SEC (23-33) Sodium Level 141 MMOL/L (136-145) Potassium Level 2.9 MMOL/L (3.5-5.1) L Chloride Level 96 MMOL/L (98-107) L Carbon Dioxide Level 41 MMOL/L (21-32) *H Anion Gap 4 mmol/L (5-15) L Blood Urea Nitrogen 36 mg/dL (7-18) H Creatinine 2.4 MG/DL (0.55-1.30) H Estimat Glomerular Filtration Rate 27.9 mL/min (>60) Glucose Level 111 MG/DL (74-106) H Hemoglobin A1c 4.1 % (4.3-6.0) L Uric Acid 11.0 MG/DL (2.6-7.2) H Calcium Level 7.5 MG/DL (8.5-10.1) L Phosphorus Level 3.9 MG/DL (2.5-4.9) Magnesium Level 2.2 MG/DL (1.8-2.4) Ferritin 886 NG/ML (8-388) H Total Bilirubin 2.5 MG/DL (0.2-1.0) H Direct Bilirubin 1.3 MG/DL (0.0-0.3) H Gamma Glutamyl Transpeptidase 55 U/L (5-85) Aspartate Amino Transf (AST/SGOT) 40 U/L (15-37) H Alanine Aminotransferase (ALT/SGPT) 9 U/L (12-78) L Alkaline Phosphatase 85 U/L (46-116) Ammonia 52 umol/L (11-32) H C-Reactive Protein, Quantitative 9.2 mg/dL (0.00-0.90) H Pro-B-Type Natriuretic Peptide 1812 pg/mL (0-125) H Total Protein 5.8 G/DL (6.4-8.2) L Albumin 1.7 G/DL (3.4-5.0) L Globulin 4.1 g/dL Albumin/Globulin Ratio 0.4 (1.0-2.7) L Triglycerides Level 175 MG/DL (30-150) H Cholesterol Level 111 MG/DL (< 200) LDL Cholesterol 77 mg/dL (<100) HDL Cholesterol 9 MG/DL (40-60) L Cholesterol/HDL Ratio 12.3 (3.3-4.4) H Lipase 202 U/L (73-393) Vitamin B12 Level 819 PG/ML (193-986) Vitamin D 25-Hydroxy Pending 25-Hydroxy Vitamin D2 Pending 25-Hydroxy Vitamin D3 Pending Folate 2.1 NG/ML (8.6-58.9) L Thyroid Stimulating Hormone (TSH) 1.497 uiU/mL (0.358-3.740) Test 11/03/20 05:41 11/03/20 11:52 11/03/20 13:30 11/03/20 16:48 POC Whole Blood Glucose 114 MG/DL (74-106) H 128 MG/DL (74-106) H Pending Urine Color Yellow Urine Appearance Clear Urine pH 5 (4.5-8.0) Urine Specific [place] 1.020 (1.005-1.035) Urine Protein 2+ (NEGATIVE) H Urine Glucose (UA) Negative (NEGATIVE) Urine Ketones 1+ (NEGATIVE) H Urine Blood 1+ (NEGATIVE) H Urine Nitrite Negative (NEGATIVE) Urine Bilirubin Negative (NEGATIVE) Urine Urobilinogen 1 MG/DL (0.0-1.0) H Urine Leukocyte Esterase 1+ (NEGATIVE) H Urine RBC 2-4 /HPF (0 - 0) H Urine WBC 2-4 /HPF (0 - 0) Urine Squamous Epithelial Cells Occasional /LPF Urine Amorphous Sediment Few /LPF (NONE) H Urine Bacteria Few /HPF (NONE) Urine Hyaline Casts 0-2 /LPF (NONE) H Urine Mucus Occasional /LPF Urine Random Sodium < 20 mmol/L (20-110) L Microbiology Date/Time Source Procedure Growth Status 11/02/20 13:27 Ascities Fluid Gram Stain - Final Resulted 11/02/20 13:27 Ascities Fluid Body Fluid Culture - Preliminary NO GROWTH Resulted 11/01/20 14:55 Nasopharynx Coronavirus COVID-19 PCR (REGIS) - Final Complete 11/01/20 14:55 Nasal Nares - Final Complete 11/01/20 14:55 Nasal Nares - Final Complete 11/01/20 14:15 Blood Blood Culture - Preliminary NO GROWTH AFTER 24 HOURS Resulted 11/01/20 14:00 Blood Blood Culture - Preliminary NO GROWTH AFTER 24 HOURS Resulted Intake and Output 11/02/20 11/03/20 19:00 07:00 Intake Total 270 ml 647.5 ml Balance 270 ml 647.5 ml Intake Oral 240 ml 500 ml IV Total 30 ml 147.5 ml # Voids 2 # Bowel Movements 1 4 Objective Objective General: No acute distress, awake and alert HEENT: NCAT, sclera anicteric, PERRL, EOMI. Neck: Supple, no significant jugular venous distention, Lungs: Fair inspiratory effort, , no Wheeze or Rales. Heart: Regular rate and rhythm, normal S1/S2, no murmurs Abdomen: soft, nontender, +distended. positive fluid shift, bowel sound present. / Rectal: Refused and deferred. Extremities: No Cyanosis , clubbing or edema. Neuro: A&O x 3, Able to move all extremities Skin: warm, no rash Assessment/Plan Assessment/Plan Assessment/Plan Assessment/Plan Sepsis Acute Hypoxia on BiPAP >> NRB mask >> venti mask alcohol abuse Liver Cirrhosis, Fatty liver Massive ascites DAVIDE vs CKD DM2 HTN Plan: Cont empiric vanco/Zosyn High volume paracentesis, F/u COVID PCR F/u BCx monitor laboratory in a.m. Discussed with the son over the phone extensively with regard to the plan of care and therapy. Jered Case MD Nov 03, 2020 17:12
--- NOTE | 2020-11-03 19:30 | NUR ---
NURSE NOTES: Received report from Leticia DIANE. Pt is awake, oriented to name reality orientation provided. Reoriented x3.Patient watching TV. Denies any pain or discomfort at this time. On Venturi mask 14L, 55% FIO2 at 96% O2Sat. HOB elevated. Peripheral IV access present left AC #20G, right wrist #22G, both saline locked, patent/intact. Abdomen is large, distended, round, hard to touch, with active bowel sounds. Hernandez catheter is draining dark anirudh/yellow urine. Skin is intact, with sacral and right heel/foot DTI. HOB is at high shelton's, bed locked/ in lowest position, side rails up. instructed patient to use call light for assistance.n Will continue with plan of care.
--- NOTE | 2020-11-03 19:33 | NUR ---
NURSE HAND-OFF REPORT: Important Events on Shift: O2 therapy, antibiotics, lactulose, BM, blood sugar monitoring Patient Status: stable Diet: ccho med Pending Orders: n/a Pending Results/Labs:n/a Pending MD notification:n/a Latest Vital Signs: Temperature 98.2 , Pulse 101 , B/P 85 /57 , Respiratory Rate 20 , O2 SAT 91 , Bi-pap, O2 Flow Rate 14.0 . Vital Sign Comment: n/a EKG Rhythm: Sinus Rhythm Rhythm change?: N MD Notified?: - MD Response: Latest Childs Fall Score: 70 Fall Risk: High Risk Safety Measures: Call light Within Reach, Bed Alarm Zone 2, Side Rails Side Rails x3, Bed position Low and Locked. Fall Precautions: Yellow Socks Yellow Gown Door Sign Patient Fall Education Report given to Alyse DIANE.
[2020-11-03 20:00] VITALS: BP 93/58
--- NOTE | 2020-11-03 20:16 | General Progress Note ---
Subjective Allergies: Coded Allergies: No Known Allergies (Unverified , 10/02/16) Subjective above noted more awake and interactive s/p 10 liter paracentesis Objective Last 24 Hour Vital Signs Date Time Temp Pulse Resp B/P (MAP) Pulse Ox O2 Delivery O2 Flow Rate FiO2 11/03/20 19:30 95 Venturi Mask 10.0 45 11/03/20 16:00 Venturi Mask 14.0 11/03/20 16:00 90 11/03/20 16:00 98.2 101 20 85/57 (66) 91 11/03/20 12:00 98.2 99 20 105/69 (81) 99 11/03/20 12:00 Venturi Mask 14.0 11/03/20 12:00 93 11/03/20 08:00 97.3 73 20 97/44 (61) 95 11/03/20 08:00 Venturi Mask 14.0 11/03/20 08:00 92 11/03/20 07:20 99 Venturi Mask 14.0 55 11/03/20 04:00 97.6 73 20 104/55 (71) 99 11/03/20 04:00 Venturi Mask 14.0 11/03/20 04:00 81 11/03/20 00:42 78 11/03/20 00:00 97.5 73 20 101/60 (74) 100 11/03/20 00:00 Venturi Mask 14.0 Intake and Output 11/02/20 11/03/20 19:00 07:00 Intake Total 270 ml 647.5 ml Balance 270 ml 647.5 ml Intake Oral 240 ml 500 ml IV Total 30 ml 147.5 ml # Voids 2 # Bowel Movements 1 4 Laboratory Tests 11/02/20 20:34: POC Whole Blood Glucose 181H 11/03/20 03:15: White Blood Count 11.1H, Red Blood Count 2.69L, Hemoglobin 9.6L, Hematocrit 27.9L, Mean Corpuscular Volume 104H, Mean Corpuscular Hemoglobin 35.9H, Mean Corpuscular Hemoglobin Concent 34.6, Red Cell Distribution Width 19.0H, Platelet Count 157, Mean Platelet Volume 6.0L, Neutrophils (%) (Auto) 81.7H, Lymphocytes (%) (Auto) 10.3L, Monocytes (%) (Auto) 7.2, Eosinophils (%) (Auto) 0.4, Basophils (%) (Auto) 0.5, Prothrombin Time 16.1H, Prothromb Time International Ratio 1.5H, Activated Partial Thromboplast Time 33, Sodium Level 141, Potassium Level 2.9L, Chloride Level 96L, Carbon Dioxide Level 41*H, Anion Gap 4L, Blood Urea Nitrogen 36H, Creatinine 2.4H, Estimat Glomerular Filtration Rate 27.9, G lucose Level 111H, Hemoglobin A1c 4.1L, Uric Acid 11.0H, Calcium Level 7.5L, Phosphorus Level 3.9, Magnesium Level 2.2, Ferritin 886H, Total Bilirubin 2.5H, Direct Bilirubin 1.3H, Gamma Glutamyl Transpeptidase 55, Aspartate Amino Transf (AST/SGOT) 40H, Alanine Aminotransferase (ALT/SGPT) 9L, Alkaline Phosphatase 85, Ammonia 52H, C-Reactive Protein, Quantitative 9.2H, Pro-B-Type Natriuretic Peptide 1812H, Total Protein 5.8L, Albumin 1.7L, Globulin 4.1, Albumin/Globulin Ratio 0.4L, Triglycerides Level 175H, Cholesterol Level 111, LDL Cholesterol 77, HDL Cholesterol 9L, Cholesterol/HDL Ratio 12.3H, Lipase 202, Vitamin B12 Level 819, Vitamin D 25-Hydroxy [Pending], 25-Hydroxy Vitamin D2 [Pending], 25-Hydroxy Vitamin D3 [Pending], Folate 2.1L, Thyroid Stimulating Hormone (TSH) 1.497 11/03/20 05:41: POC Whole Blood Glucose 114H 11/03/20 11:52: POC Whole Blood Glucose 128H 11/03/20 13:30: Urine Color Yellow, Urine Appearance Clear, Urine pH 5, Urine Specific [place] 1.020, Urine Protein 2+H, Urine Glucose (UA) Negative, Urine Ketones 1+H, Urine Blood 1+H, Urine Nitrite Negative, Urine Bilirubin Negative, Urine Urobilinogen 1H, Urine Leukocyte Esterase 1+H, Urine RBC 2-4H, Urine WBC 2-4, Urine Squamous Epithelial Cells Occasional, Urine Amorphous Sediment FewH, Urine Bacteria Few, Urine Hyaline Casts 0-2H, Urine Mucus Occasional, Urine Random Sodium < 20L 11/03/20 16:48: POC Whole Blood Glucose [Pending] Height (Feet): 6 Height (Inches): 1.00 Weight (Pounds): 200 Objective WDWN WM NCAT supple CTA RR abd soft,mildly distended no edema non focal Assessment/Plan Assessment/Plan: Assessment/Plan Problem List: (1) Cirrhosis ICD Codes: K74.60 - Unspecified cirrhosis of liver SNOMED: 91233821 (2) Hepatic encephalopathy ICD Codes: K72.90 - Hepatic failure, unspecified without coma; R65.20 - Severe sepsis without septic shock SNOMED: 73269924 (3) Hypokalemia ICD Codes: E87.6 - Hypokalemia; R65.20 - Severe sepsis without septic shock SNOMED: 51234628 (4) Ascites ICD Codes: R18.8 - Other ascites SNOMED: 167579768 (5) Severe sepsis ICD Codes: A41.9 - Sepsis, unspecified organism; R65.20 - Severe sepsis without septic shock SNOMED: 11519249 (6) AMS (altered mental status) ICD Codes: R41.82 - Altered mental status, unspecified SNOMED: 747785025 Assessment/Plan: po as tolerated Elevate HOB lactulose PPI ammonia level fu hepatitis panel Igor Askew MD Nov 03, 2020 20:16
[2020-11-04] VITALS: BP 103/67
--- NOTE | 2020-11-04 01:00 | NUR ---
NURSE NOTES: Bed bath given tolerated well.
[2020-11-04] MEDS: Acetaminophen 500mg (ES) tab ORAL PRN ×3 (02:04→20:23)
[2020-11-04 04:00] VITALS: BP 117/68
[2020-11-04] MEDS: Piperacillin/Tazobactam 3.375 GM in NS 110 ML IVPB SCH ×3 (05:36→22:13)
[2020-11-04] MEDS: Midodrine 10mg tab ORAL SCH ×3 (05:37→22:12)
[2020-11-04 06:34] LABS: BASOPHILS % (AUTO) 0.6 % (0.0-2.0); EOSINOPHILS % (AUTO) 0.6 % (0.0-3.0); HEMATOCRIT 29.6 % (42.0-52.0); HEMOGLOBIN 9.9 G/DL (14.2-18.0); LYMPHOCYTES % (AUTO) 9.9 % (20.0-45.0); MEAN CORPUSCULAR VOLUME 104 FL (80-99); MONOCYTES % (AUTO) 8.3 % (1.0-10.0); NEUTROPHILS % (AUTO) 80.7 % (45.0-75.0); PLATELET COUNT 161 K/UL (150-450); RED BLOOD COUNT 2.85 M/UL (4.70-6.10); RED CELL DISTRIBUTION WIDTH 18.9 % (11.6-14.8); WHITE BLOOD COUNT 12.7 K/UL (4.8-10.8)
[2020-11-04] MEDS: NovoLOG Insulin Flexpen SUBQ SCH ×4 (06:47→21:00)
[2020-11-04 07:15] LABS: PHOSPHORUS 3.4 MG/DL (2.5-4.9)
--- NOTE | 2020-11-04 07:30 | NUR ---
NURSE HAND-OFF REPORT: Important Events on Shift: Patient Status: Diet: Pending Orders: Pending Results/Labs: Pending MD notification: Latest Vital Signs: Temperature 97.7 , Pulse 85 , B/P 117 /68 , Respiratory Rate 20 , O2 SAT 95 , Bi-pap, O2 Flow Rate 14.0 . Vital Sign Comment: EKG Rhythm: Sinus Rhythm Rhythm change?: N MD Notified?: - MD Response: Latest Childs Fall Score: 70 Fall Risk: High Risk Safety Measures: Call light Within Reach, Bed Alarm Zone 2, Side Rails Side Rails x3, Bed position Low and Locked. Fall Precautions: Yellow Socks Yellow Gown Door Sign Patient Fall Education Report given to .
--- NOTE | 2020-11-04 07:30 | NUR ---
NURSE NOTES: Report received from Alyse Card RN.Pt awake alert sitting up on bed ,eating breakfast,noted no resp distress,on 45% Venti Mask,no signs of pain or discomfort,SR on the monitor,Hernandez cath draining yellow urine,with Rectal tube in placed draining liquid brown stools,skin warm and dry IV site to LAC and RT Wrist intactSR up x2 HOB elevated bed lock in lowest position will continue with plans of care.
[2020-11-04 07:33] LABS: ALBUMIN 1.5 G/DL (3.4-5.0); ALBUMIN/GLOBULIN RATIO 0.3 (1.0-2.7); BILIRUBIN,TOTAL 2.1 MG/DL (0.2-1.0); CALCIUM 7.6 MG/DL (8.5-10.1); CREATININE 2.6 MG/DL (0.55-1.30)
[2020-11-04 08:00] VITALS: BP 112/71
[2020-11-04] MEDS: Lactulose 20gm/30ml UDC ORAL SCH ×3 (09:44→17:11)
[2020-11-04] MEDS: Heparin 5000 units/ml inj SUBQ SCH ×2 (09:48→20:24)
[2020-11-04 12:00] VITALS: BP 101/53
--- NOTE | 2020-11-04 13:00 | NUR ---
NURSE NOTES: ABG drawn,results better,venti mask change to 3 L NC,O2 change tolerated O2 sat 96%
--- NOTE | 2020-11-04 14:34 | Nephrology Progress Note ---
Assessment/Plan Problem List: (1) Renal failure (ARF), acute on chronic (2) Electrolyte imbalance (3) Hypokalemia (4) Cirrhosis (5) DMII (diabetes mellitus, type 2) (6) Anemia (7) HTN (hypertension) Assessment Renal failure most likely acute on chronic Electrolyte imbalances, hypokalemia Sepsis Hepatic encephalopathy, ascites, fatty liver Anemia History of EtOH abuse, history of tobacco abuse, history of drug abuse Diabetes mellitus type 2 Hypertension Lymphopenia, leukocytosis, hypoxia Plan November 04 labs reviewed. Patient full code. On Venturi mask. Low potassium addressed. Serum creatinine rising. Continue to monitor renal parameters. Allopurinol initiated November 03: Labs reviewed. Medication list reviewed. Abnormal electrolyte addressed. Continue monitor renal parameters. Continue per consultants. Previously: Trial of 3% saline and albumin bolus Potassium supplement Monitor renal parameters, ammonia, electrolytes ordered Subjective ROS Limited/Unobtainable: Yes Objective Objective Last 24 Hour Vital Signs Date Time Temp Pulse Resp B/P (MAP) Pulse Ox O2 Delivery O2 Flow Rate FiO2 11/04/20 12:00 93 11/04/20 12:00 98.0 89 20 101/53 (69) 91 11/04/20 12:00 Venturi Mask 14.0 11/04/20 08:00 98.1 89 32 112/71 (85) 98 11/04/20 08:00 Venturi Mask 14.0 11/04/20 08:00 81 11/04/20 07:30 97 Venturi Mask 10.0 45 11/04/20 04:00 Venturi Mask 14.0 11/04/20 04:00 97.7 85 20 117/68 (84) 95 11/04/20 04:00 85 11/04/20 02:34 97.7 11/04/20 00:36 95 10.0 45 11/04/20 00:00 97.9 87 20 103/67 (79) 95 11/04/20 00:00 Venturi Mask 14.0 11/03/20 20:00 97.7 90 20 93/58 (70) 95 11/03/20 20:00 90 11/03/20 20:00 Venturi Mask 14.0 11/03/20 19:30 95 Venturi Mask 10.0 45 11/03/20 16:00 Venturi Mask 14.0 11/03/20 16:00 90 11/03/20 16:00 98.2 101 20 85/57 (66) 91 Intake and Output 11/03/20 11/04/20 19:00 07:00 Intake Total 217.5 ml 437.5 ml Output Total 100 ml 500 ml Balance 117.5 ml -62.5 ml Intake Oral 300 ml IV Total 217.5 ml 137.5 ml Output Urine Total 100 ml 500 ml # Bowel Movements 6 6 Current Medications Medications (Trade) Dose Ordered Sig/Kylah Route PRN Reason Start Time Stop Time Status Last Admin Dose Admin Acetaminophen (Tylenol) 500 mg Q6H PRN ORAL Mild Pain 11/02/20 08:30 12/02/20 08:29 11/04/20 11:05 Acetaminophen (Tylenol) 500 mg Q6H PRN ORAL fever > 100.2 11/02/20 08:45 12/02/20 08:44 Dextrose (Dextrose 50%) 25 ml Q30M PRN IV Hypoglycemia 11/01/20 18:30 01/30/21 18:29 Dextrose (Dextrose 50%) 50 ml Q30M PRN IV Hypoglycemia 11/01/20 18:30 01/30/21 18:29 Folic Acid (Folate) 3 mg DAILY ORAL 11/03/20 13:15 12/03/20 13:14 11/04/20 09:46 Heparin Sodium (Porcine) (Heparin 5000 units/ml) 5,000 units EVERY 12 HOURS SUBQ 11/01/20 21:00 12/16/20 20:59 11/04/20 09:48 Insulin Aspart (NovoLOG) BEFORE MEALS AND HS SUBQ 11/01/20 21:00 01/30/21 20:59 11/04/20 06:47 Lactulose (Cephulac) 30 gm THREE TIMES A DAY ORAL 11/02/20 09:00 12/02/20 08:59 11/04/20 11:40 Midodrine (Pro-Amatine) 10 mg Q8HR ORAL 11/02/20 14:00 01/31/21 13:59 11/04/20 13:35 Pantoprazole (Protonix) 40 mg EVERY 12 HOURS ORAL 11/02/20 21:00 12/02/20 20:59 11/04/20 09:44 Piperacillin Sod/ Tazobactam Sod 3.375 gm/Sodium Chloride 110 ml @ 27.5 mls/hr EVERY 8 HOURS IVPB 11/01/20 22:00 11/06/20 21:59 11/04/20 13:36 Potassium Chloride (K-Dur) 20 meq TWICE A DAY ORAL 11/02/20 18:00 11/04/20 09:45 Rifaximin (Xifaxan) 550 mg EVERY 12 HOURS ORAL 11/02/20 21:00 11/09/20 20:59 11/04/20 09:47 Laboratory Tests 11/03/20 16:48: POC Whole Blood Glucose [Pending] 11/04/20 04:58: White Blood Count 12.7H, Red Blood Count 2.85L, Hemoglobin 9.9L, Hematocrit 29.6L, Mean Corpuscular Volume 104H, Mean Corpuscular Hemoglobin 34.6H, Mean Corpuscular Hemoglobin Concent 33.3, Red Cell Distribution Width 18.9H, Platelet Count 161, Mean Platelet Volume 6.2L, Neutrophils (%) (Auto) 80.7H, Lymphocytes (%) (Auto) 9.9L, Monocytes (%) (Auto) 8.3, Eosinophils (%) (Auto) 0.6, Basophils (%) (Auto) 0.6, Sodium Level 140, Potassium Level 3.0L, Chloride Level 95L, Carbon Dioxide Level 38H, Anion Gap 7, Blood Urea Nitrogen 38H, Creatinine 2.6H, Estimat Glomerular Filtration Rate 25.5, Glucose Level 115H, Uric Acid 9.9H, Calcium Level 7.6L, Phosphorus Level 3.4, Magnesium Level 2.1, Total Bilirubin 2.1H, Direct Bilirubin 1.0H, Aspartate Amino Transf (AST/SGOT) 40H, Alanine Aminotransferase (ALT/SGPT) 11L, Alkaline Phosphatase 92, Ammonia 29, C- Reactive Protein, Quantitative 10.5H, Pro-B-Type Natriuretic Peptide 2153H, Total Protein 5.8L, Albumin 1.5L, Globulin 4.3, Albumin/Globulin Ratio 0.3L, Random Vancomycin Level 18.4 11/04/20 11:09: POC Whole Blood Glucose 139H 11/04/20 12:55: Arterial Blood pH 7.515H, Arterial Blood Partial Pressure CO2 46.3H, Arterial Blood Partial Pressure O2 87.0, Arterial Blood HCO3 36.5H, Arterial Blood Oxygen Saturation 96.6, Arterial Blood Base Excess 12.2*H, Miguel Test Positive Height (Feet): 6 Height (Inches): 1.00 Weight (Pounds): 200 General Appearance: lethargic EENT: other - On Venturi mask Cardiovascular: normal rate Respiratory/Chest: decreased breath sounds Abdomen: distended Kalin Pozo MD Nov 04, 2020 14:34
--- NOTE | 2020-11-04 14:39 | Internal Med Progress Note ---
Subjective Date of Service: Nov 04, 2020 Physician Name Jered Case Attending Physician Ramon Coombs MD Current Medications Medications (Trade) Dose Ordered Sig/Kylah Route PRN Reason Start Time Stop Time Status Last Admin Dose Admin Acetaminophen (Tylenol) 500 mg Q6H PRN ORAL Mild Pain 11/02/20 08:30 12/02/20 08:29 11/04/20 11:05 Acetaminophen (Tylenol) 500 mg Q6H PRN ORAL fever > 100.2 11/02/20 08:45 12/02/20 08:44 Allopurinol (Zyloprim) 200 mg DAILY ORAL 11/04/20 15:00 12/04/20 14:59 Dextrose (Dextrose 50%) 25 ml Q30M PRN IV Hypoglycemia 11/01/20 18:30 01/30/21 18:29 Dextrose (Dextrose 50%) 50 ml Q30M PRN IV Hypoglycemia 11/01/20 18:30 01/30/21 18:29 Folic Acid (Folate) 3 mg DAILY ORAL 11/03/20 13:15 12/03/20 13:14 11/04/20 09:46 Heparin Sodium (Porcine) (Heparin 5000 units/ml) 5,000 units EVERY 12 HOURS SUBQ 11/01/20 21:00 12/16/20 20:59 11/04/20 09:48 Insulin Aspart (NovoLOG) BEFORE MEALS AND HS SUBQ 11/01/20 21:00 01/30/21 20:59 11/04/20 06:47 Lactulose (Cephulac) 30 gm THREE TIMES A DAY ORAL 11/02/20 09:00 12/02/20 08:59 11/04/20 11:40 Midodrine (Pro-Amatine) 10 mg Q8HR ORAL 11/02/20 14:00 01/31/21 13:59 11/04/20 13:35 Pantoprazole (Protonix) 40 mg EVERY 12 HOURS ORAL 11/02/20 21:00 12/02/20 20:59 11/04/20 09:44 Piperacillin Sod/ Tazobactam Sod 3.375 gm/Sodium Chloride 110 ml @ 27.5 mls/hr EVERY 8 HOURS IVPB 11/01/20 22:00 11/06/20 21:59 11/04/20 13:36 Potassium Chloride (K-Dur) 40 meq TWICE A DAY ORAL 11/04/20 18:00 02/02/21 17:59 UNV Rifaximin (Xifaxan) 550 mg EVERY 12 HOURS ORAL 11/02/20 21:00 11/09/20 20:59 11/04/20 09:47 Allergies: Coded Allergies: No Known Allergies (Unverified , 10/02/16) ROS Limited/Unobtainable: Yes Subjective 60 YO M with history of alcohol dependence admitted with shortness of breath. Now respiratroy failure. Cover for Int Med-DR Coombs. Step down unit Objective Last Vital Signs Date Time Temp Pulse Resp B/P (MAP) Pulse Ox O2 Delivery O2 Flow Rate FiO2 11/04/20 12:00 93 11/04/20 12:00 98.0 20 101/53 (69) 91 11/04/20 12:00 Venturi Mask 14.0 11/04/20 07:30 45 Laboratory Tests Test 11/03/20 16:48 11/04/20 04:58 11/04/20 11:09 11/04/20 12:55 POC Whole Blood Glucose Pending 139 MG/DL (74-106) H White Blood Count 12.7 K/UL (4.8-10.8) H Red Blood Count 2.85 M/UL (4.70-6.10) L Hemoglobin 9.9 G/DL (14.2-18.0) L Hematocrit 29.6 % (42.0-52.0) L Mean Corpuscular Volume 104 FL (80-99) H Mean Corpuscular Hemoglobin 34.6 PG (27.0-31.0) H Mean Corpuscular Hemoglobin Concent 33.3 G/DL (32.0-36.0) Red Cell Distribution Width 18.9 % (11.6-14.8) H Platelet Count 161 K/UL (150-450) Mean Platelet Volume 6.2 FL (6.5-10.1) L Neutrophils (%) (Auto) 80.7 % (45.0-75.0) H Lymphocytes (%) (Auto) 9.9 % (20.0-45.0) L Monocytes (%) (Auto) 8.3 % (1.0-10.0) Eosinophils (%) (Auto) 0.6 % (0.0-3.0) Basophils (%) (Auto) 0.6 % (0.0-2.0) Sodium Level 140 MMOL/L (136-145) Potassium Level 3.0 MMOL/L (3.5-5.1) L Chloride Level 95 MMOL/L (98-107) L Carbon Dioxide Level 38 MMOL/L (21-32) H Anion Gap 7 mmol/L (5-15) Blood Urea Nitrogen 38 mg/dL (7-18) H Creatinine 2.6 MG/DL (0.55-1.30) H Estimat Glomerular Filtration Rate 25.5 mL/min (>60) Glucose Level 115 MG/DL (74-106) H Uric Acid 9.9 MG/DL (2.6-7.2) H Calcium Level 7.6 MG/DL (8.5-10.1) L Phosphorus Level 3.4 MG/DL (2.5-4.9) Magnesium Level 2.1 MG/DL (1.8-2.4) Total Bilirubin 2.1 MG/DL (0.2-1.0) H Direct Bilirubin 1.0 MG/DL (0.0-0.3) H Aspartate Amino Transf (AST/SGOT) 40 U/L (15-37) H Alanine Aminotransferase (ALT/SGPT) 11 U/L (12-78) L Alkaline Phosphatase 92 U/L (46-116) Ammonia 29 umol/L (11-32) C-Reactive Protein, Quantitative 10.5 mg/dL (0.00-0.90) H Pro-B-Type Natriuretic Peptide 2153 pg/mL (0-125) H Total Protein 5.8 G/DL (6.4-8.2) L Albumin 1.5 G/DL (3.4-5.0) L Globulin 4.3 g/dL Albumin/Globulin Ratio 0.3 (1.0-2.7) L Random Vancomycin Level 18.4 ug/mL Arterial Blood pH 7.515 (7.350-7.450) Arterial Blood Partial Pressure CO2 46.3 mmHg (35.0-45.0) H Arterial Blood Partial Pressure O2 87.0 mmHg (75.0-100.0) Arterial Blood HCO3 36.5 mmol/L (22.0-26.0) H Arterial Blood Oxygen Saturation 96.6 % (95-100) Arterial Blood Base Excess 12.2 (-2-2) *H Miguel Test Positive Microbiology Date/Time Source Procedure Growth Status 11/02/20 13:27 Ascities Fluid Gram Stain - Final Resulted 11/02/20 13:27 Ascities Fluid Body Fluid Culture - Preliminary NO GROWTH AFTER 24 HOURS Resulted 11/01/20 14:55 Nasopharynx Coronavirus COVID-19 PCR (REGIS) - Final Complete 11/01/20 14:55 Nasal Nares - Final Complete 11/01/20 14:55 Nasal Nares - Final Complete Intake and Output 11/03/20 11/04/20 19:00 07:00 Intake Total 217.5 ml 437.5 ml Output Total 100 ml 500 ml Balance 117.5 ml -62.5 ml Intake Oral 300 ml IV Total 217.5 ml 137.5 ml Output Urine Total 100 ml 500 ml # Bowel Movements 6 6 Objective Objective General: No acute distress, awake and alert HEENT: NCAT, sclera anicteric, PERRL, EOMI. Neck: Supple, no significant jugular venous distention, Lungs: Venturi mask; Fair inspiratory effort, , no Wheeze or Rales. Heart: Regular rate and rhythm, normal S1/S2, no murmurs Abdomen: soft, nontender, +distended. positive fluid shift, bowel sound present. / Rectal: Refused and deferred. Extremities: No Cyanosis , clubbing or edema. Neuro: A&O x 3, Able to move all extremities Skin: warm, no rash Assessment/Plan Assessment/Plan Assessment/Plan Assessment/Plan Sepsis Acute Hypoxia on BiPAP >> NRB mask >> venturi mask alcohol abuse Liver Cirrhosis, Fatty liver Massive ascites DAVIDE vs CKD DM2 HTN Plan: Cont empiric vanco/Zosyn High volume paracentesis, COVID PCR=Neg F/u BCx Jered Case MD Nov 04, 2020 14:39
--- NOTE | 2020-11-04 14:44 | NUR ---
NURSE NOTES: Pt's K level 3.0 Dr Pozo ordered K replacement
[2020-11-04 16:00] VITALS: BP 97/63
--- NOTE | 2020-11-04 16:00 | NUR ---
NURSE NOTES: Rectal Tube leaking, pt had a large solid particles noted on the bed,bed bath given,kept dry and clean.
[2020-11-04] MEDS: Allopurinol 100mg Tab ORAL SCH (17:11)
--- NOTE | 2020-11-04 17:58 | General Progress Note ---
Subjective Allergies: Coded Allergies: No Known Allergies (Unverified , 10/02/16) Subjective above noted more awake and interactive eating well Objective Last 24 Hour Vital Signs Date Time Temp Pulse Resp B/P (MAP) Pulse Ox O2 Delivery O2 Flow Rate FiO2 11/04/20 16:00 89 11/04/20 16:00 Venturi Mask 14.0 11/04/20 16:00 97.9 90 22 97/63 (74) 96 11/04/20 12:00 93 11/04/20 12:00 98.0 89 20 101/53 (69) 91 11/04/20 12:00 Venturi Mask 14.0 11/04/20 08:00 98.1 89 32 112/71 (85) 98 11/04/20 08:00 Venturi Mask 14.0 11/04/20 08:00 81 11/04/20 07:30 97 Venturi Mask 10.0 45 11/04/20 04:00 Venturi Mask 14.0 11/04/20 04:00 97.7 85 20 117/68 (84) 95 11/04/20 04:00 85 11/04/20 02:34 97.7 11/04/20 00:36 95 10.0 45 11/04/20 00:00 97.9 87 20 103/67 (79) 95 11/04/20 00:00 Venturi Mask 14.0 11/03/20 20:00 97.7 90 20 93/58 (70) 95 11/03/20 20:00 90 11/03/20 20:00 Venturi Mask 14.0 11/03/20 19:30 95 Venturi Mask 10.0 45 Intake and Output 11/03/20 11/04/20 19:00 07:00 Intake Total 217.5 ml 437.5 ml Output Total 100 ml 500 ml Balance 117.5 ml -62.5 ml Intake Oral 300 ml IV Total 217.5 ml 137.5 ml Output Urine Total 100 ml 500 ml # Bowel Movements 6 6 Laboratory Tests 11/04/20 04:58: White Blood Count 12.7H, Red Blood Count 2.85L, Hemoglobin 9.9L, Hematocrit 29.6L, Mean Corpuscular Volume 104H, Mean Corpuscular Hemoglobin 34.6H, Mean Corpuscular Hemoglobin Concent 33.3, Red Cell Distribution Width 18.9H, Platelet Count 161, Mean Platelet Volume 6.2L, Neutrophils (%) (Auto) 80.7H, Lymphocytes (%) (Auto) 9.9L, Monocytes (%) (Auto) 8.3, Eosinophils (%) (Auto) 0.6, Basophils (%) (Auto) 0.6, Sodium Level 140, Potassium Level 3.0L, Chloride Level 95L, Carbon Dioxide Level 38H, Anion Gap 7, Blood Urea Nitrogen 38H, Creatinine 2.6H, Estimat Glomerular Filtration Rate 25.5, Glucose Level 115H, Uric Acid 9.9H, Calcium Level 7.6L, Phosphorus Level 3.4, Magnesium Level 2.1, Total Bilirubin 2.1H, Direct Bilirubin 1.0H, Aspartate Amino Transf (AST/SGOT) 40H, Alanine Aminotransferase (ALT/SGPT) 11L, Alkaline Phosphatase 92, Ammonia 29, C-Reactive Protein, Quantitative 10.5H, Pro-B-Type Natriuretic Peptide 2153H, Total Protein 5.8L, Albumin 1.5L, Globulin 4.3, Albumin/Globulin Ratio 0.3L, Random Vancomycin Level 18.4 11/04/20 11:09: POC Whole Blood Glucose 139H 11/04/20 12:55: Arterial Blood pH 7.515H, Arterial Blood Partial Pressure CO2 46.3H, Arterial Blood Partial Pressure O2 87.0, Arterial Blood HCO3 36.5H, Arterial Blood Oxygen Saturation 96.6, Arterial Blood Base Excess 12.2*H, Miguel Test Positive 11/04/20 17:08: POC Whole Blood Glucose [Pending] 11/04/20 17:09: POC Whole Blood Glucose [Pending] Height (Feet): 6 Height (Inches): 1.00 Weight (Pounds): 200 Objective WDWN WM NCAT supple CTA RR abd soft,mildly distended no edema non focal Assessment/Plan Assessment/Plan: Assessment/Plan Problem List: (1) Cirrhosis ICD Codes: K74.60 - Unspecified cirrhosis of liver SNOMED: 80179446 (2) Hepatic encephalopathy ICD Codes: K72.90 - Hepatic failure, unspecified without coma; R65.20 - Severe sepsis without septic shock SNOMED: 68622136 (3) Hypokalemia ICD Codes: E87.6 - Hypokalemia; R65.20 - Severe sepsis without septic shock SNOMED: 49824654 (4) Ascites ICD Codes: R18.8 - Other ascites SNOMED: 069872959 (5) Severe sepsis ICD Codes: A41.9 - Sepsis, unspecified organism; R65.20 - Severe sepsis without septic shock SNOMED: 98329765 (6) AMS (altered mental status) ICD Codes: R41.82 - Altered mental status, unspecified SNOMED: 024397620 Assessment/Plan: po as tolerated Elevate HOB lactulose PPI f/u ammonia level fu hepatitis panel Igor Askew MD Nov 04, 2020 17:58
--- NOTE | 2020-11-04 19:30 | NUR ---
NURSE NOTES: Received report from Fany DIANE. Pt is awake, oriented to name reality orientation provided. Reoriented x3.Patient watching TV. Denies any pain or discomfort at this time. On 3L oxygen via NC satting 97%. HOB elevated. Peripheral IV access present left AC #20G, right wrist #22G, both saline locked, patent/intact. Abdomen is large, distended, round, hard to touch, with active bowel sounds. Hernandez catheter is draining dark anirudh urine. Skin is intact, with sacral and right heel/foot DTI. HOB is at high shelton's, bed locked/ in lowest position, side rails up. instructed patient to use call light for assistance.n Will continue with plan of care.
[2020-11-04 20:00] VITALS: BP 100/77
[2020-11-05] VITALS: BP 107/67
--- NOTE | 2020-11-05 02:00 | NUR ---
NURSE NOTES: Bed bath given tolerated well.
--- NOTE | 2020-11-05 02:14 | History and Physical Report ---
DATE OF ADMISSION: 11/01/2020 CHIEF COMPLAINT: Weakness. HISTORY OF PRESENT ILLNESS: This is a 60-year-old gentleman with past medical history significant for alcohol abuse, quit drinking in September 2020, history of fatty liver, diabetes type 2, and hypertension, who presented to the emergency department by EMS after he was noted to have failure to thrive. The patient stated that he has not been feeling well and weak at home. He stated that he has been falling several times, complaining about abdominal distention, right upper quadrant abdominal pain. Denies any history of abdominal paracentesis. He stated that the landlord came to check on him and found him living in not good condition. EMS was called in, and subsequently the patient was transferred to the hospital. He denies any chest pain or shortness of breath. Shortly after initial evaluation in the emergency department, the patient was admitted to the hospital for sepsis, possibly due to the intraabdominal infection as well as ascites. PAST MEDICAL HISTORY/PAST SURGICAL HISTORY: As above, history of alcohol abuse, quit in September 2020, diabetes type 2, and hypertension. MEDICATIONS AT HOME: Please refer to medication reconciliation. ALLERGIES: No known drug allergies. SOCIAL HISTORY: The patient is an ex-alcohol abuser, quit in September 2020. Denies any substance abuse. FAMILY HISTORY: Noncontributory. REVIEW OF SYSTEMS: Mostly as above. PHYSICAL EXAMINATION: VITAL SIGNS: On admission, temperature 98.8, pulse of 102, respirations 18, and blood pressure 112/70. GENERAL: The patient is awake, responsive, on a BiPAP. HEAD AND NECK: Pupils are reactive to light. Extraocular muscles intact. Neck was supple. No JVD. LUNGS: Good air entry. No wheezing or rhonchi. Decreased air in the bases. HEART: S1 and S2. Distant heart sounds. No murmur or gallop. ABDOMEN: Soft. Distended. Fluid shift. No rebound tenderness. EXTREMITIES: No cyanosis, clubbing, or edema. NEUROLOGIC: Cranial nerves II through XII grossly intact. The patient is moving all the extremities. Gait was not assessed due to the patient's status. RECTAL/: Refused and deferred. LABORATORY AND DIAGNOSTIC DATA: On admission, WBC of 14, hemoglobin of 11, hematocrit 35, platelets are 276,000. Sodium 135, potassium 2.9, chloride 87, bicarbonate 44, BUN 34, creatinine 2.4, GFR is 27, and glucose is 157. Lactate is 4.8, calcium is 8.5, and magnesium 2.2. Total bilirubin of 4.0, direct bilirubin of 2.4, AST of 56, and ALT of 10. Troponin 0.00. ProBNP of 939. Lipase is 177. PT of 60, INR 1.1, and PTT of 31. The patient's chest x-ray, evidence of right hemidiaphragm, possible right airspace disease and right effusion. CT of the head, no acute intracranial abnormality. CT of the abdomen and pelvis, cirrhosis with a large amount of ascites, splenic granuloma, sludge in the gallbladder, small right pleural effusion with compressive atelectasis of right lobe, and elevated right hemidiaphragm. ASSESSMENT: 1. Altered mental status, most likely secondary to hepatic encephalopathy. 2. Ascites. 3. History of alcoholism. 4. Fatty liver. 5. Diabetes type 2. 6. Hypertension. 7. Hypokalemia. PLAN: Admit the patient to [facility]. We will follow up with the laboratory and culture. Broad-spectrum antibiotic, vancomycin, and Zosyn. Code status is Full Code. We will consider to get abdominal paracentesis. At this time, the patient is not capable of consenting for the abdominal paracentesis, and in light of the emergency and the patient not able to consent, I will consent on behalf of the patient. The patient needs to have this procedure done in order to send analysis for the fluid as well as decompress the abdominal pressure. Ramon Coombs M.D. DR: KENYON JOB#: [id number] CC:
[2020-11-05 04:00] VITALS: BP 100/60
[2020-11-05] MEDS: NovoLOG Insulin Flexpen SUBQ SCH ×4 (06:30→21:27)
[2020-11-05] MEDS: Midodrine 10mg tab ORAL SCH ×3 (06:45→21:29)
[2020-11-05] MEDS: Piperacillin/Tazobactam 3.375 GM in NS 110 ML IVPB SCH ×3 (06:45→21:30)
[2020-11-05 06:54] LABS: BASOPHILS % (AUTO) 0.7 % (0.0-2.0); EOSINOPHILS % (AUTO) 0.6 % (0.0-3.0); HEMATOCRIT 30.3 % (42.0-52.0); HEMOGLOBIN 9.9 G/DL (14.2-18.0); LYMPHOCYTES % (AUTO) 8.6 % (20.0-45.0); MEAN CORPUSCULAR VOLUME 105 FL (80-99); NEUTROPHILS % (AUTO) 82.2 % (45.0-75.0); PLATELET COUNT 145 K/UL (150-450); RED BLOOD COUNT 2.89 M/UL (4.70-6.10); RED CELL DISTRIBUTION WIDTH 18.5 % (11.6-14.8); WHITE BLOOD COUNT 14.3 K/UL (4.8-10.8)
--- NOTE | 2020-11-05 07:06 | NUR ---
NURSE HAND-OFF REPORT: Important Events on Shift: Patient Status: Diet: Pending Orders: Pending Results/Labs: Pending MD notification: Latest Vital Signs: Temperature 98.4 , Pulse 91 , B/P 100 /60 , Respiratory Rate 20 , O2 SAT 100 , Bi-pap, O2 Flow Rate 14.0 . Vital Sign Comment: EKG Rhythm: Sinus Rhythm Rhythm change?: N MD Notified?: - MD Response: Latest Childs Fall Score: 70 Fall Risk: High Risk Safety Measures: Call light Within Reach, Bed Alarm Zone 2, Side Rails Side Rails x3, Bed position Low and Locked. Fall Precautions: Yellow Socks Yellow Gown Door Sign Patient Fall Education Report given to .
--- NOTE | 2020-11-05 07:15 | NUR ---
NURSE NOTES: received report from ROXI Cullen. patient is on bed, responsive, alert to name and place. patient is on nasal cannula 3L saturating well. on regular CCHO diet. patient has fallon catheter, patent, intact, and draining yellow urine. on rectal tube as well, patent, intact, and draining well. L AC 20 g, patent, intact saline locked, and a R wrist 22 g, patent, intact, and running zosyn. HOB elevated, bed is on lowest position, locked, side rails up, call light within reach. will continue to monitor. will continue plan of care.
[2020-11-05 07:50] LABS: ALBUMIN 1.5 G/DL (3.4-5.0); ALBUMIN/GLOBULIN RATIO 0.3 (1.0-2.7); BILIRUBIN,TOTAL 2.1 MG/DL (0.2-1.0); CALCIUM 7.9 MG/DL (8.5-10.1); CREATININE 2.5 MG/DL (0.55-1.30); PHOSPHORUS 3.2 MG/DL (2.5-4.9); POTASSIUM 3.6 MMOL/L (3.5-5.1)
[2020-11-05 08:00] VITALS: BP 95/60
[2020-11-05] MEDS: Lactulose 20gm/30ml UDC ORAL SCH ×3 (08:23→17:49)
[2020-11-05] MEDS: Allopurinol 100mg Tab ORAL SCH (08:24)
[2020-11-05] MEDS: Heparin 5000 units/ml inj SUBQ SCH ×2 (08:25→21:31)
--- NOTE | 2020-11-05 08:26 | NUR ---
NURSE NOTES: heparin not administered with the morning medications because today's platelets levels are abnormal (145). all other medications are successfully administered. will continue to monitor patient.
--- NOTE | 2020-11-05 10:34 | Infectious Diseases Prog Note ---
Assessment/Plan 60yo M with: Sepsis Afebrile Hypoxia on BiPAP >> NRB mask >> venti mask Leukocytosis to 14, improving Lymphopenia 11/01 BCx NTD COVID PCR neg CXR: Elevated right hemidiaphragm. Possible right basilar airspace disease and right effusion. CTH: No acute process EtOH abuse Cirrhosis, Fatty liver Masive ascites Elevated AST to 48 Acute hep panel p 11/01 CT A/P: CIRRHOSIS WITH LARGE AMOUNT OF ASCITES. SPLENIC GRANULOMAS. SLUDGE IN THE GALLBLADDER. SMALL RIGHT PLEURAL EFFUSION WITH COMPRESSIVE ATELECTASIS RIGHT LOWER LOBE. ELEVATED RIGHT HEMIDIAPHRAGM. 11/02 Paracentesis, 10.2L removed 838 RBC, 142 WBC, 2%PMN, 94%[place] Cx - NTD DAVIDE vs CKD, Cr 2.4, improving PMH: EtOH abuse, stopped drinking in Sep 2020 Fatty liver DM2 HTN Plan: Cont empiric Zosyn #5 for possible pna, less likely SBP F/u HIV screen, acute hep panel - d/w lab about where are results, they will look into it Trend WBC - improving 11/03 SP vanco #2 Monitor CBC/CMP Monitor temp curve, hemodynamics Monitor resp status D/w RN and lab at length Thank you for this consult. [facility] will continue to follow. Subjective Allergies: Coded Allergies: No Known Allergies (Unverified , 10/02/16) AF NAD on 3L NC WBC stable at 14 Reports abd pain comes and goes w/ distension Breathing is improving Objective Last 24 Hour Vital Signs Date Time Temp Pulse Resp B/P (MAP) Pulse Ox O2 Delivery O2 Flow Rate FiO2 11/05/20 08:00 97.7 95 21 95/60 (72) 98 11/05/20 08:00 96 11/05/20 08:00 Nasal Cannula 3.0 11/05/20 04:00 98.4 91 20 100/60 (73) 100 11/05/20 04:00 Venturi Mask 14.0 11/05/20 04:00 90 11/05/20 00:00 98 11/05/20 00:00 Venturi Mask 14.0 11/05/20 00:00 98.1 91 20 107/67 (80) 98 11/04/20 20:53 97.9 11/04/20 20:00 Venturi Mask 14.0 11/04/20 20:00 93 11/04/20 20:00 97.9 93 22 100/77 (85) 97 11/04/20 19:15 97 Nasal Cannula 4.0 36 11/04/20 16:00 89 11/04/20 16:00 Venturi Mask 14.0 11/04/20 16:00 97.9 90 22 97/63 (74) 96 11/04/20 12:00 93 11/04/20 12:00 98.0 89 20 101/53 (69) 91 11/04/20 12:00 Venturi Mask 14.0 Height (Feet): 6 Height (Inches): 1.00 Weight (Pounds): 200 Gen: NAD HEENT: NCAT, EOMI Pulm: BL chest rise on venti mask Abd: Less distended than prior, soft, NT Ext: No c/c/e Neuro: Awake, interactive, slow to answer questions Microbiology Date/Time Source Procedure Growth Status 11/02/20 13:27 Ascities Fluid Gram Stain - Final Resulted 11/02/20 13:27 Ascities Fluid Body Fluid Culture - Preliminary NO GROWTH AFTER 48 HOURS Resulted Laboratory Tests Test 11/04/20 11:09 11/04/20 12:55 11/04/20 17:08 11/04/20 17:09 POC Whole Blood Glucose 139 MG/DL (74-106) H Pending Pending Arterial Blood pH 7.515 (7.350-7.450) Arterial Blood Partial Pressure CO2 46.3 mmHg (35.0-45.0) H Arterial Blood Partial Pressure O2 87.0 mmHg (75.0-100.0) Arterial Blood HCO3 36.5 mmol/L (22.0-26.0) H Arterial Blood Oxygen Saturation 96.6 % (95-100) Arterial Blood Base Excess 12.2 (-2-2) *H Miguel Test Positive Test 11/05/20 04:56 11/05/20 06:33 White Blood Count 14.3 K/UL (4.8-10.8) H Red Blood Count 2.89 M/UL (4.70-6.10) L Hemoglobin 9.9 G/DL (14.2-18.0) L Hematocrit 30.3 % (42.0-52.0) L Mean Corpuscular Volume 105 FL (80-99) H Mean Corpuscular Hemoglobin 34.3 PG (27.0-31.0) H Mean Corpuscular Hemoglobin Concent 32.7 G/DL (32.0-36.0) Red Cell Distribution Width 18.5 % (11.6-14.8) H Platelet Count 145 K/UL (150-450) L Mean Platelet Volume 6.5 FL (6.5-10.1) Neutrophils (%) (Auto) 82.2 % (45.0-75.0) H Lymphocytes (%) (Auto) 8.6 % (20.0-45.0) L Monocytes (%) (Auto) 8.0 % (1.0-10.0) Eosinophils (%) (Auto) 0.6 % (0.0-3.0) Basophils (%) (Auto) 0.7 % (0.0-2.0) Sodium Level 139 MMOL/L (136-145) Potassium Level 3.6 MMOL/L (3.5-5.1) Chloride Level 96 MMOL/L (98-107) L Carbon Dioxide Level 35 MMOL/L (21-32) H Anion Gap 8 mmol/L (5-15) Blood Urea Nitrogen 40 mg/dL (7-18) H Creatinine 2.5 MG/DL (0.55-1.30) H Estimat Glomerular Filtration Rate 26.7 mL/min (>60) Glucose Level 109 MG/DL (74-106) H Uric Acid 8.7 MG/DL (2.6-7.2) H Calcium Level 7.9 MG/DL (8.5-10.1) L Phosphorus Level 3.2 MG/DL (2.5-4.9) Magnesium Level 2.0 MG/DL (1.8-2.4) Total Bilirubin 2.1 MG/DL (0.2-1.0) H Direct Bilirubin 1.0 MG/DL (0.0-0.3) H Aspartate Amino Transf (AST/SGOT) 42 U/L (15-37) H Alanine Aminotransferase (ALT/SGPT) 12 U/L (12-78) Alkaline Phosphatase 94 U/L (46-116) Ammonia 26 umol/L (11-32) C-Reactive Protein, Quantitative 11.0 mg/dL (0.00-0.90) H Pro-B-Type Natriuretic Peptide 1704 pg/mL (0-125) H Total Protein 6.2 G/DL (6.4-8.2) L Albumin 1.5 G/DL (3.4-5.0) L Globulin 4.7 g/dL Albumin/Globulin Ratio 0.3 (1.0-2.7) L POC Whole Blood Glucose 106 MG/DL (74-106) Current Medications Medications (Trade) Dose Ordered Sig/Kylah Route PRN Reason Start Time Stop Time Status Last Admin Dose Admin Acetaminophen (Tylenol) 500 mg Q6H PRN ORAL Mild Pain 11/02/20 08:30 12/02/20 08:29 11/04/20 20:23 Acetaminophen (Tylenol) 500 mg Q6H PRN ORAL fever > 100.2 11/02/20 08:45 12/02/20 08:44 Allopurinol (Zyloprim) 200 mg DAILY ORAL 11/04/20 15:00 12/04/20 14:59 11/05/20 08:24 Dextrose (Dextrose 50%) 25 ml Q30M PRN IV Hypoglycemia 11/01/20 18:30 01/30/21 18:29 Dextrose (Dextrose 50%) 50 ml Q30M PRN IV Hypoglycemia 11/01/20 18:30 01/30/21 18:29 Folic Acid (Folate) 3 mg DAILY ORAL 11/03/20 13:15 12/03/20 13:14 11/05/20 08:23 Heparin Sodium (Porcine) (Heparin 5000 units/ml) 5,000 units EVERY 12 HOURS SUBQ 11/01/20 21:00 12/16/20 20:59 11/04/20 20:24 Insulin Aspart (NovoLOG) BEFORE MEALS AND HS SUBQ 11/01/20 21:00 01/30/21 20:59 11/04/20 17:14 Lactulose (Cephulac) 30 gm THREE TIMES A DAY ORAL 11/02/20 09:00 12/02/20 08:59 11/05/20 08:23 Midodrine (Pro-Amatine) 10 mg Q8HR ORAL 11/02/20 14:00 01/31/21 13:59 11/05/20 06:45 Pantoprazole (Protonix) 40 mg EVERY 12 HOURS ORAL 11/02/20 21:00 12/02/20 20:59 11/05/20 08:24 Piperacillin Sod/ Tazobactam Sod 3.375 gm/Sodium Chloride 110 ml @ 27.5 mls/hr EVERY 8 HOURS IVPB 11/01/20 22:00 11/06/20 21:59 11/05/20 06:45 Potassium Chloride (K-Dur) 40 meq TWICE A DAY ORAL 11/04/20 18:00 02/02/21 17:59 11/05/20 08:24 Rifaximin (Xifaxan) 550 mg EVERY 12 HOURS ORAL 11/02/20 21:00 11/09/20 20:59 11/05/20 08:24 Viviana Casper M.D. Nov 05, 2020 10:34
--- NOTE | 2020-11-05 11:19 | General Progress Note ---
Subjective ROS Limited/Unobtainable: No Allergies: Coded Allergies: No Known Allergies (Unverified , 10/02/16) Objective Last 24 Hour Vital Signs Date Time Temp Pulse Resp B/P (MAP) Pulse Ox O2 Delivery O2 Flow Rate FiO2 11/05/20 08:00 97.7 95 21 95/60 (72) 98 11/05/20 08:00 96 11/05/20 08:00 Nasal Cannula 3.0 11/05/20 04:00 98.4 91 20 100/60 (73) 100 11/05/20 04:00 Venturi Mask 14.0 11/05/20 04:00 90 11/05/20 00:00 98 11/05/20 00:00 Venturi Mask 14.0 11/05/20 00:00 98.1 91 20 107/67 (80) 98 11/04/20 20:53 97.9 11/04/20 20:00 Venturi Mask 14.0 11/04/20 20:00 93 11/04/20 20:00 97.9 93 22 100/77 (85) 97 11/04/20 19:15 97 Nasal Cannula 4.0 36 11/04/20 16:00 89 11/04/20 16:00 Venturi Mask 14.0 11/04/20 16:00 97.9 90 22 97/63 (74) 96 11/04/20 12:00 93 11/04/20 12:00 98.0 89 20 101/53 (69) 91 11/04/20 12:00 Venturi Mask 14.0 Intake and Output 11/04/20 11/05/20 19:00 07:00 Intake Total 1200 ml 610.0 ml Output Total 500 ml 500 ml Balance 700 ml 110.0 ml Intake Oral 1200 ml 500 ml IV Total 110.0 ml Output Urine Total 300 ml 300 ml Stool Total 200 ml 200 ml Laboratory Tests 11/04/20 12:55: Arterial Blood pH 7.515H, Arterial Blood Partial Pressure CO2 46.3H, Arterial Blood Partial Pressure O2 87.0, Arterial Blood HCO3 36.5H, Arterial Blood Oxygen Saturation 96.6, Arterial Blood Base Excess 12.2*H, Miguel Test Positive 11/04/20 17:08: POC Whole Blood Glucose [Pending] 11/04/20 17:09: POC Whole Blood Glucose [Pending] 11/05/20 04:56: White Blood Count 14.3H, Red Blood Count 2.89L, Hemoglobin 9.9L, Hematocrit 30.3L, Mean Corpuscular Volume 105H, Mean Corpuscular Hemoglobin 34.3H, Mean Corpuscular Hemoglobin Concent 32.7, Red Cell Distribution Width 18.5H, Platelet Count 145L, Mean Platelet Volume 6.5, Neutrophils (%) (Auto) 82.2H, Lymphocytes (%) (Auto) 8.6L, Monocytes (%) (Auto) 8.0, Eosinophils (%) (Auto) 0.6, Basophils (%) (Auto) 0.7, Sodium Level 139, Potassium Level 3.6, Chloride Level 96L, Carbon Dioxide Level 35H, Anion Gap 8, Blood Urea Nitrogen 40H, Creatinine 2.5H, Estimat Glomerular Filtration Rate 26.7, Glucose Level 109H, Uric Acid 8.7H, Calcium Level 7.9L, Phosphorus Level 3.2, Magnesium Level 2.0, Total Bilirubin 2.1H, Direct Bilirubin 1.0H, Aspartate Amino Transf (AST/SGOT) 42H, Alanine Aminotransferase (ALT/SGPT) 12, Alkaline Phosphatase 94, Ammonia 26, C- Reactive Protein, Quantitative 11.0H, Pro-B-Type Natriuretic Peptide 1704H, Total Protein 6.2L, Albumin 1.5L, Globulin 4.7, Albumin/Globulin Ratio 0.3L 11/05/20 06:33: POC Whole Blood Glucose 106 Height (Feet): 6 Height (Inches): 1.00 Weight (Pounds): 200 General Appearance: no apparent distress EENT: normal ENT inspection Neck: supple Cardiovascular: normal rate Respiratory/Chest: decreased breath sounds Abdomen: normal bowel sounds, non tender, soft Extremities: non-tender Assessment/Plan Problem List: (1) Cirrhosis ICD Codes: K74.60 - Unspecified cirrhosis of liver SNOMED: 79707946 (2) Hepatic encephalopathy ICD Codes: K72.90 - Hepatic failure, unspecified without coma; R65.20 - Severe sepsis without septic shock SNOMED: 81145827 (3) Hypokalemia ICD Codes: E87.6 - Hypokalemia; R65.20 - Severe sepsis without septic shock SNOMED: 52387805 (4) Ascites ICD Codes: R18.8 - Other ascites SNOMED: 769253069 (5) Severe sepsis ICD Codes: A41.9 - Sepsis, unspecified organism; R65.20 - Severe sepsis without septic shock SNOMED: 30196591 (6) AMS (altered mental status) ICD Codes: R41.82 - Altered mental status, unspecified SNOMED: 002245326 Assessment/Plan: Assessment/Plan Problem List: (1) Cirrhosis ICD Codes: K74.60 - Unspecified cirrhosis of liver SNOMED: 47800206 (2) Hepatic encephalopathy ICD Codes: K72.90 - Hepatic failure, unspecified without coma; R65.20 - Severe sepsis without septic shock SNOMED: 31334732 (3) Hypokalemia ICD Codes: E87.6 - Hypokalemia; R65.20 - Severe sepsis without septic shock SNOMED: 96666362 (4) Ascites ICD Codes: R18.8 - Other ascites SNOMED: 350518946 (5) Severe sepsis ICD Codes: A41.9 - Sepsis, unspecified organism; R65.20 - Severe sepsis without septic shock SNOMED: 86298800 (6) AMS (altered mental status) ICD Codes: R41.82 - Altered mental status, unspecified SNOMED: 004028124 Assessment/Plan: po as tolerated Elevate HOB lactulose PPI f/u ammonia level fu hepatitis panel Mejia Encarnacion MD Nov 05, 2020 11:19
[2020-11-05 12:00] VITALS: BP 102/63
--- NOTE | 2020-11-05 12:49 | Nephrology Progress Note ---
Assessment/Plan Problem List: (1) Renal failure (ARF), acute on chronic (2) Electrolyte imbalance (3) Hypokalemia (4) Cirrhosis (5) DMII (diabetes mellitus, type 2) (6) Anemia (7) HTN (hypertension) Assessment Renal failure most likely acute on chronic Electrolyte imbalances, hypokalemia Sepsis Hepatic encephalopathy, ascites, fatty liver Anemia History of EtOH abuse, history of tobacco abuse, history of drug abuse Diabetes mellitus type 2 Hypertension Lymphopenia, leukocytosis, hypoxia Plan November 05: Labs reviewed. Serum creatinine plateauing. Status quo. Electrolyte acceptable. Now on oxygen by cannula. Continue per consultants. November 04 labs reviewed. Patient full code. On Venturi mask. Low potassium addressed. Serum creatinine rising. Continue to monitor renal parameters. Allopurinol initiated November 03: Labs reviewed. Medication list reviewed. Abnormal electrolyte addressed. Continue monitor renal parameters. Continue per consultants. Previously: Trial of 3% saline and albumin bolus Potassium supplement Monitor renal parameters, ammonia, electrolytes ordered Subjective ROS Limited/Unobtainable: No Constitutional: Reports: malaise Objective Objective Last 24 Hour Vital Signs Date Time Temp Pulse Resp B/P (MAP) Pulse Ox O2 Delivery O2 Flow Rate FiO2 11/05/20 12:00 93 11/05/20 08:00 97.7 95 21 95/60 (72) 98 11/05/20 08:00 96 11/05/20 08:00 Nasal Cannula 3.0 11/05/20 07:07 100 Nasal Cannula 3.0 32 11/05/20 04:00 98.4 91 20 100/60 (73) 100 11/05/20 04:00 Venturi Mask 14.0 11/05/20 04:00 90 11/05/20 00:00 98 11/05/20 00:00 Venturi Mask 14.0 11/05/20 00:00 98.1 91 20 107/67 (80) 98 11/04/20 20:53 97.9 11/04/20 20:00 Venturi Mask 14.0 11/04/20 20:00 93 11/04/20 20:00 97.9 93 22 100/77 (85) 97 11/04/20 19:15 97 Nasal Cannula 4.0 36 11/04/20 16:00 89 11/04/20 16:00 Venturi Mask 14.0 11/04/20 16:00 97.9 90 22 97/63 (74) 96 Intake and Output 11/04/20 11/05/20 19:00 07:00 Intake Total 1200 ml 610.0 ml Output Total 500 ml 500 ml Balance 700 ml 110.0 ml Intake Oral 1200 ml 500 ml IV Total 110.0 ml Output Urine Total 300 ml 300 ml Stool Total 200 ml 200 ml Current Medications Medications (Trade) Dose Ordered Sig/Kylah Route PRN Reason Start Time Stop Time Status Last Admin Dose Admin Acetaminophen (Tylenol) 500 mg Q6H PRN ORAL Mild Pain 11/02/20 08:30 12/02/20 08:29 11/04/20 20:23 Acetaminophen (Tylenol) 500 mg Q6H PRN ORAL fever > 100.2 11/02/20 08:45 12/02/20 08:44 Allopurinol (Zyloprim) 200 mg DAILY ORAL 11/04/20 15:00 12/04/20 14:59 11/05/20 08:24 Dextrose (Dextrose 50%) 25 ml Q30M PRN IV Hypoglycemia 11/01/20 18:30 01/30/21 18:29 Dextrose (Dextrose 50%) 50 ml Q30M PRN IV Hypoglycemia 11/01/20 18:30 01/30/21 18:29 Folic Acid (Folate) 3 mg DAILY ORAL 11/03/20 13:15 12/03/20 13:14 11/05/20 08:23 Heparin Sodium (Porcine) (Heparin 5000 units/ml) 5,000 units EVERY 12 HOURS SUBQ 11/01/20 21:00 12/16/20 20:59 11/04/20 20:24 Insulin Aspart (NovoLOG) BEFORE MEALS AND HS SUBQ 11/01/20 21:00 01/30/21 20:59 11/05/20 11:18 Lactulose (Cephulac) 30 gm THREE TIMES A DAY ORAL 11/02/20 09:00 12/02/20 08:59 11/05/20 08:23 Midodrine (Pro-Amatine) 10 mg Q8HR ORAL 11/02/20 14:00 01/31/21 13:59 11/05/20 06:45 Pantoprazole (Protonix) 40 mg EVERY 12 HOURS ORAL 11/02/20 21:00 12/02/20 20:59 11/05/20 08:24 Piperacillin Sod/ Tazobactam Sod 3.375 gm/Sodium Chloride 110 ml @ 27.5 mls/hr EVERY 8 HOURS IVPB 11/01/20 22:00 11/06/20 21:59 11/05/20 06:45 Potassium Chloride (K-Dur) 40 meq TWICE A DAY ORAL 11/04/20 18:00 02/02/21 17:59 11/05/20 08:24 Rifaximin (Xifaxan) 550 mg EVERY 12 HOURS ORAL 11/02/20 21:00 11/09/20 20:59 11/05/20 08:24 Laboratory Tests 11/04/20 12:55: Arterial Blood pH 7.515H, Arterial Blood Partial Pressure CO2 46.3H, Arterial Blood Partial Pressure O2 87.0, Arterial Blood HCO3 36.5H, Arterial Blood Oxygen Saturation 96.6, Arterial Blood Base Excess 12.2*H, Miguel Test Positive 11/04/20 17:08: POC Whole Blood Glucose [Pending] 11/04/20 17:09: POC Whole Blood Glucose [Pending] 11/05/20 04:56: White Blood Count 14.3H, Red Blood Count 2.89L, Hemoglobin 9.9L, Hematocrit 30.3L, Mean Corpuscular Volume 105H, Mean Corpuscular Hemoglobin 34.3H, Mean Corpuscular Hemoglobin Concent 32.7, Red Cell Distribution Width 18.5H, Platelet Count 145L, Mean Platelet Volume 6.5, Neutrophils (%) (Auto) 82.2H, Lymphocytes (%) (Auto) 8.6L, Monocytes (%) (Auto) 8.0, Eosinophils (%) (Auto) 0.6, Basophils (%) (Auto) 0.7, Sodium Level 139, Potassium Level 3.6, Chloride Level 96L, Carbon Dioxide Level 35H, Anion Gap 8, Blood Urea Nitrogen 40H, Creatinine 2.5H, Estimat Glomerular Filtration Rate 26.7, Glucose Level 109H, Uric Acid 8.7H, Calcium Level 7.9L, Phosphorus Level 3.2, Magnesium Level 2.0, Total Bilirubin 2.1H, Direct Bilirubin 1.0H, Aspartate Amino Transf (AST/SGOT) 42H, Alanine Aminotransferase (ALT/SGPT) 12, Alkaline Phosphatase 94, Ammonia 26, C- Reactive Protein, Quantitative 11.0H, Pro-B-Type Natriuretic Peptide 1704H, Total Protein 6.2L, Albumin 1.5L, Globulin 4.7, Albumin/Globulin Ratio 0.3L 11/05/20 06:33: POC Whole Blood Glucose 106 11/05/20 11:18: POC Whole Blood Glucose 143H Height (Feet): 6 Height (Inches): 1.00 Weight (Pounds): 200 General Appearance: no apparent distress, lethargic, confused Cardiovascular: tachycardia Respiratory/Chest: decreased breath sounds Abdomen: distended Kalin Pozo MD Nov 05, 2020 12:49
--- NOTE | 2020-11-05 15:10 | NUR ---
CASE MANAGEMENT:REVIEW 11/05/20 SI: SEPSIS. HYPOXIA. ETOH ABUSE. ASCITES S/P PARACENTESIS~ 10.2 L REMOVED 97.7 95 21 95/60 98% ON 3L/NC CO2+35 BUN+40 CR+2.5 IS: IV ZOSYN Q8HRS K-DUR PO BID ALLOPURINOL PO QD FOLATE PO QD PROTONIX PO Q12 RIFAXIMIN PO Q12 MIDODRINE PO Q8HRS LACTULOSE PO TID HEPARIN SQ Q12 : STEP DOWN UNIT DCP: FROM HOME...
[2020-11-05 16:00] VITALS: BP 99/62
--- NOTE | 2020-11-05 16:08 | NUR ---
NURSE NOTES: novolog non-administered. patient's blood sugar within normal limits (128).
--- NOTE | 2020-11-05 18:58 | Internal Med Progress Note ---
Subjective Date of Service: Nov 05, 2020 Physician Name Jered Case Attending Physician Ramon Coombs MD Current Medications Medications (Trade) Dose Ordered Sig/Kylah Route PRN Reason Start Time Stop Time Status Last Admin Dose Admin Acetaminophen (Tylenol) 500 mg Q6H PRN ORAL Mild Pain 11/02/20 08:30 12/02/20 08:29 11/04/20 20:23 Acetaminophen (Tylenol) 500 mg Q6H PRN ORAL fever > 100.2 11/02/20 08:45 12/02/20 08:44 Allopurinol (Zyloprim) 200 mg DAILY ORAL 11/04/20 15:00 12/04/20 14:59 11/05/20 08:24 Dextrose (Dextrose 50%) 25 ml Q30M PRN IV Hypoglycemia 11/01/20 18:30 01/30/21 18:29 Dextrose (Dextrose 50%) 50 ml Q30M PRN IV Hypoglycemia 11/01/20 18:30 01/30/21 18:29 Folic Acid (Folate) 3 mg DAILY ORAL 11/03/20 13:15 12/03/20 13:14 11/05/20 08:23 Heparin Sodium (Porcine) (Heparin 5000 units/ml) 5,000 units EVERY 12 HOURS SUBQ 11/01/20 21:00 12/16/20 20:59 11/04/20 20:24 Insulin Aspart (NovoLOG) BEFORE MEALS AND HS SUBQ 11/01/20 21:00 01/30/21 20:59 11/05/20 11:18 Lactulose (Cephulac) 30 gm THREE TIMES A DAY ORAL 11/02/20 09:00 12/02/20 08:59 11/05/20 17:49 Midodrine (Pro-Amatine) 10 mg Q8HR ORAL 11/02/20 14:00 01/31/21 13:59 11/05/20 14:17 Pantoprazole (Protonix) 40 mg EVERY 12 HOURS ORAL 11/02/20 21:00 12/02/20 20:59 11/05/20 08:24 Piperacillin Sod/ Tazobactam Sod 3.375 gm/Sodium Chloride 110 ml @ 27.5 mls/hr EVERY 8 HOURS IVPB 11/01/20 22:00 11/06/20 21:59 11/05/20 14:18 Potassium Chloride (K-Dur) 40 meq TWICE A DAY ORAL 11/04/20 18:00 02/02/21 17:59 11/05/20 17:49 Rifaximin (Xifaxan) 550 mg EVERY 12 HOURS ORAL 11/02/20 21:00 11/09/20 20:59 11/05/20 08:24 Allergies: Coded Allergies: No Known Allergies (Unverified , 10/02/16) ROS Limited/Unobtainable: Yes Subjective 60 YO M with history of alcohol dependence admitted with shortness of breath. Now respiratroy failure. Cover for Int Med-DR Coombs. Step down unit. S/P paracentesis 11/02/20 Objective Last Vital Signs Date Time Temp Pulse Resp B/P (MAP) Pulse Ox O2 Delivery O2 Flow Rate FiO2 11/05/20 16:00 92 11/05/20 16:00 97.7 20 99/62 (74) 99 11/05/20 12:00 Nasal Cannula 3.0 11/05/20 07:07 32 Laboratory Tests Test 11/05/20 04:56 11/05/20 06:33 11/05/20 11:18 11/05/20 16:03 White Blood Count 14.3 K/UL (4.8-10.8) H Red Blood Count 2.89 M/UL (4.70-6.10) L Hemoglobin 9.9 G/DL (14.2-18.0) L Hematocrit 30.3 % (42.0-52.0) L Mean Corpuscular Volume 105 FL (80-99) H Mean Corpuscular Hemoglobin 34.3 PG (27.0-31.0) H Mean Corpuscular Hemoglobin Concent 32.7 G/DL (32.0-36.0) Red Cell Distribution Width 18.5 % (11.6-14.8) H Platelet Count 145 K/UL (150-450) L Mean Platelet Volume 6.5 FL (6.5-10.1) Neutrophils (%) (Auto) 82.2 % (45.0-75.0) H Lymphocytes (%) (Auto) 8.6 % (20.0-45.0) L Monocytes (%) (Auto) 8.0 % (1.0-10.0) Eosinophils (%) (Auto) 0.6 % (0.0-3.0) Basophils (%) (Auto) 0.7 % (0.0-2.0) Sodium Level 139 MMOL/L (136-145) Potassium Level 3.6 MMOL/L (3.5-5.1) Chloride Level 96 MMOL/L (98-107) L Carbon Dioxide Level 35 MMOL/L (21-32) H Anion Gap 8 mmol/L (5-15) Blood Urea Nitrogen 40 mg/dL (7-18) H Creatinine 2.5 MG/DL (0.55-1.30) H Estimat Glomerular Filtration Rate 26.7 mL/min (>60) Glucose Level 109 MG/DL (74-106) H Uric Acid 8.7 MG/DL (2.6-7.2) H Calcium Level 7.9 MG/DL (8.5-10.1) L Phosphorus Level 3.2 MG/DL (2.5-4.9) Magnesium Level 2.0 MG/DL (1.8-2.4) Total Bilirubin 2.1 MG/DL (0.2-1.0) H Direct Bilirubin 1.0 MG/DL (0.0-0.3) H Aspartate Amino Transf (AST/SGOT) 42 U/L (15-37) H Alanine Aminotransferase (ALT/SGPT) 12 U/L (12-78) Alkaline Phosphatase 94 U/L (46-116) Ammonia 26 umol/L (11-32) C-Reactive Protein, Quantitative 11.0 mg/dL (0.00-0.90) H Pro-B-Type Natriuretic Peptide 1704 pg/mL (0-125) H Total Protein 6.2 G/DL (6.4-8.2) L Albumin 1.5 G/DL (3.4-5.0) L Globulin 4.7 g/dL Albumin/Globulin Ratio 0.3 (1.0-2.7) L POC Whole Blood Glucose 106 MG/DL (74-106) 143 MG/DL (74-106) H 128 MG/DL (74-106) H Intake and Output 11/04/20 11/05/20 19:00 07:00 Intake Total 1200 ml 610.0 ml Output Total 500 ml 500 ml Balance 700 ml 110.0 ml Intake Oral 1200 ml 500 ml IV Total 110.0 ml Output Urine Total 300 ml 300 ml Stool Total 200 ml 200 ml Objective Objective General: No acute distress, awake and alert HEENT: NCAT, sclera anicteric, PERRL, EOMI. Neck: Supple, no significant jugular venous distention, Lungs: Nasal canula; Fair inspiratory effort, , no Wheeze or Rales. Heart: Regular rate and rhythm, normal S1/S2, no murmurs Abdomen: soft, nontender, +distended. positive fluid shift, bowel sound present. / Rectal: Refused and deferred. Extremities: No Cyanosis , clubbing or edema. Neuro: A&O x 3, Able to move all extremities Skin: warm, no rash Assessment/Plan Assessment/Plan Assessment/Plan Assessment/Plan Sepsis Acute Hypoxia on BiPAP >> NRB mask >> venturi mask alcohol abuse Liver Cirrhosis, Fatty liver Massive ascites renal failure DM2 HTN Plan: Cont empiric vanco/Zosyn High volume paracentesis, COVID PCR=Neg F/u BCx GI=Dr Encarnacion Nephrol=Dr Pozo S/P paracentesis 11/02/20 Jered Case MD Nov 05, 2020 18:58
--- NOTE | 2020-11-05 19:31 | NUR ---
NURSE HAND-OFF REPORT: Important Events on Shift: stable Patient Status: Diet: Pending Orders: Pending Results/Labs: Pending MD notification: Latest Vital Signs: Temperature 97.7 , Pulse 92 , B/P 99 /62 , Respiratory Rate 20 , O2 SAT 99 , Bi-pap, O2 Flow Rate 3.0 . Vital Sign Comment: EKG Rhythm: Sinus Rhythm Rhythm change?: N MD Notified?: - MD Response: Latest Childs Fall Score: 70 Fall Risk: High Risk Safety Measures: Call light Within Reach, Bed Alarm Zone 2, Side Rails Side Rails x3, Bed position Low and Locked. Fall Precautions: Yellow Socks Yellow Gown Door Sign Patient Fall Education Report given to ROXI Estevez.
--- NOTE | 2020-11-05 19:32 | NUR ---
NURSE NOTES: Report received from ROXI Stanford. Upon assessment pt is awake, alert with flat affect. Appears disheveled. A/Ox4. PERRLA EKG shows SR at 87 BPM. Vitals WNL. Afebrile. Saturating 97% on 3L N/C. Rectal tube observed draining well to gravity. Hernandez draining well to gravity. Bed kept in lowest and locked position. Side rails upx3. Call light within reach. Will monitor.
[2020-11-05 20:00] VITALS: BP 113/68
--- NOTE | 2020-11-05 23:17 | NUR ---
NURSE NOTES: Pt appears to be resting comfortably. No cardiopulmonary distress noted. Will monitor.
[2020-11-06] VITALS: BP 106/70
--- NOTE | 2020-11-06 02:00 | NUR ---
NURSE NOTES: Pt heard screaming in bed; c/o pain on penis area 05/14. Assessed site; soiled from leaking rectal tube. Bed bath and oral care provided. Pt requesting tylenol. Administered PRN. Will monitor.
[2020-11-06] MEDS: Acetaminophen 500mg (ES) tab ORAL PRN ×3 (02:34→18:06)
[2020-11-06 04:00] VITALS: BP 105/64
[2020-11-06] MEDS: NovoLOG Insulin Flexpen SUBQ SCH ×4 (05:22→21:10)
[2020-11-06] MEDS: Piperacillin/Tazobactam 3.375 GM in NS 110 ML IVPB SCH ×3 (05:22→21:08)
[2020-11-06 05:24] LABS: BASOPHILS % (AUTO) 0.5 % (0.0-2.0); EOSINOPHILS % (AUTO) 0.6 % (0.0-3.0); HEMATOCRIT 29.4 % (42.0-52.0); HEMOGLOBIN 9.6 G/DL (14.2-18.0); LYMPHOCYTES % (AUTO) 8.7 % (20.0-45.0); MEAN CORPUSCULAR VOLUME 104 FL (80-99); MONOCYTES % (AUTO) 6.7 % (1.0-10.0); NEUTROPHILS % (AUTO) 83.5 % (45.0-75.0); PLATELET COUNT 152 K/UL (150-450); RED BLOOD COUNT 2.81 M/UL (4.70-6.10); RED CELL DISTRIBUTION WIDTH 18.9 % (11.6-14.8); WHITE BLOOD COUNT 15.1 K/UL (4.8-10.8)
[2020-11-06] MEDS: Midodrine 10mg tab ORAL SCH ×4 (05:30→21:07)
[2020-11-06 05:57] LABS: ALBUMIN 1.4 G/DL (3.4-5.0); ALBUMIN/GLOBULIN RATIO 0.3 (1.0-2.7); BILIRUBIN,TOTAL 2.1 MG/DL (0.2-1.0); CALCIUM 8.3 MG/DL (8.5-10.1); CREATININE 2.5 MG/DL (0.55-1.30); POTASSIUM 3.8 MMOL/L (3.5-5.1)
--- NOTE | 2020-11-06 05:59 | NUR ---
NURSE NOTES: Left message for Dr. Encarnacion in regards to Lactulose order since Ammonia levels have been within range. Approx 300 mL of black liquid stool.
--- NOTE | 2020-11-06 06:00 | NUR ---
NURSE NOTES: Pt expressed feelings of depression secondary to COVID pandemic. Pt states that he, "just wishes he can attend an A.A." meeting. Assessed for s/s of self harm. No plan for self harm indicated per patient. Allowed pt to vent and express his feelings. Encouraged pt to utilize online resources that advocate for social distancing. Pt states he is, "happy that he can talk to someone." No distress noted. Will monitor.
[2020-11-06 06:26] LABS: BILIRUBIN,DIRECT 0.8 MG/DL (0.0-0.3)
--- NOTE | 2020-11-06 06:48 | NUR ---
NURSE HAND-OFF REPORT: Important Events on Shift: No changes Patient Status: Stable Diet: Pending Orders: Pending Results/Labs: Pending MD notification: Latest Vital Signs: Temperature 95.7 , Pulse 84 , B/P 105 /64 , Respiratory Rate 20 , O2 SAT 97 , Bi-pap, O2 Flow Rate 3.0 . Vital Sign Comment: WNL EKG Rhythm: Sinus Rhythm Rhythm change?: N MD Notified?: - MD Response: Latest Childs Fall Score: 70 Fall Risk: High Risk Safety Measures: Call light Within Reach, Bed Alarm Zone 1, Side Rails Side Rails x3, Bed position Low and Locked. Fall Precautions: Yellow Socks Yellow Gown Door Sign Patient Fall Education Report given to ROXI Stanford.
--- NOTE | 2020-11-06 06:51 | General Progress Note ---
Subjective ROS Limited/Unobtainable: Yes Allergies: Coded Allergies: No Known Allergies (Unverified , 10/02/16) Objective Last 24 Hour Vital Signs Date Time Temp Pulse Resp B/P (MAP) Pulse Ox O2 Delivery O2 Flow Rate FiO2 11/06/20 04:00 Nasal Cannula 3.0 11/06/20 04:00 95.7 78 20 105/64 (78) 97 11/06/20 04:00 84 11/06/20 03:04 97.0 11/06/20 00:00 Nasal Cannula 3.0 11/06/20 00:00 91 11/06/20 00:00 95.9 100 20 106/70 (82) 97 11/05/20 20:00 97.5 97 20 113/68 (83) 99 11/05/20 20:00 Nasal Cannula 3.0 11/05/20 20:00 93 11/05/20 19:38 95 20 97 Nasal Cannula 3.0 32 11/05/20 19:38 97 Nasal Cannula 3.0 32 11/05/20 16:00 Nasal Cannula 3.0 11/05/20 16:00 92 11/05/20 16:00 97.7 96 20 99/62 (74) 99 11/05/20 12:00 93 11/05/20 12:00 97.7 92 20 102/63 (76) 97 11/05/20 12:00 Nasal Cannula 3.0 11/05/20 08:00 97.7 95 21 95/60 (72) 98 11/05/20 08:00 96 11/05/20 08:00 Nasal Cannula 3.0 11/05/20 07:07 100 Nasal Cannula 3.0 32 Intake and Output 11/05/20 11/06/20 19:00 07:00 Intake Total 700 ml 241.3 ml Output Total 400 ml 650 ml Balance 300 ml -408.7 ml Intake Oral 700 ml 200 ml IV Total 41.3 ml Output Urine Total 200 ml 300 ml Stool Total 200 ml 350 ml Laboratory Tests 11/05/20 11:18: POC Whole Blood Glucose 143H 11/05/20 16:03: POC Whole Blood Glucose 128H 11/05/20 21:25: POC Whole Blood Glucose 140H 11/06/20 03:00: White Blood Count 15.1H, Red Blood Count 2.81L, Hemoglobin 9.6L, Hematocrit 29.4L, Mean Corpuscular Volume 104H, Mean Corpuscular Hemoglobin 34.2H, Mean Corpuscular Hemoglobin Concent 32.7, Red Cell Distribution Width 18.9H, Platelet Count 152, Mean Platelet Volume 6.4L, Neutrophils (%) (Auto) 83.5H, Lymphocytes (%) (Auto) 8.7L, Monocytes (%) (Auto) 6.7, Eosinophils (%) (Auto) 0.6, Basophils (%) (Auto) 0.5, Sodium Level 135L, Potassium Level 3.8, Chloride Level 96L, Carbon Dioxide Level 32, Anion Gap 7, Blood Urea Nitrogen 41H, Creatinine 2.5H, Estimat Glomerular Filtration Rate 26.7, Glucose Level 104, Calcium Level 8.3L, Total Bilirubin 2.1H, Direct Bilirubin 0.8H, Aspartate Amino Transf (AST/SGOT) 48H, Alanine Aminotransferase (ALT/SGPT) 11L, Alkaline Phosphatase 104, Total Protein 6.2L, Albumin 1.4L, Globulin 4.8, Albumin/Globulin Ratio 0.3L 11/06/20 05:21: POC Whole Blood Glucose 119H Height (Feet): 6 Height (Inches): 1.00 Weight (Pounds): 200 General Appearance: no apparent distress EENT: normal ENT inspection Neck: supple Cardiovascular: normal rate Respiratory/Chest: decreased breath sounds Abdomen: normal bowel sounds, non tender, soft Extremities: non-tender Assessment/Plan Problem List: (1) Cirrhosis ICD Codes: K74.60 - Unspecified cirrhosis of liver SNOMED: 96196594 (2) Hepatic encephalopathy ICD Codes: K72.90 - Hepatic failure, unspecified without coma; R65.20 - Severe sepsis without septic shock SNOMED: 48902514 (3) Hypokalemia ICD Codes: E87.6 - Hypokalemia; R65.20 - Severe sepsis without septic shock SNOMED: 23211490 (4) Ascites ICD Codes: R18.8 - Other ascites SNOMED: 674898027 (5) Severe sepsis ICD Codes: A41.9 - Sepsis, unspecified organism; R65.20 - Severe sepsis without septic shock SNOMED: 25780536 (6) AMS (altered mental status) ICD Codes: R41.82 - Altered mental status, unspecified SNOMED: 233278905 Assessment/Plan: Assessment/Plan Problem List: (1) Cirrhosis ICD Codes: K74.60 - Unspecified cirrhosis of liver SNOMED: 94899820 (2) Hepatic encephalopathy ICD Codes: K72.90 - Hepatic failure, unspecified without coma; R65.20 - Severe sepsis without septic shock SNOMED: 98829392 (3) Hypokalemia ICD Codes: E87.6 - Hypokalemia; R65.20 - Severe sepsis without septic shock SNOMED: 81835088 (4) Ascites ICD Codes: R18.8 - Other ascites SNOMED: 445246794 (5) Severe sepsis ICD Codes: A41.9 - Sepsis, unspecified organism; R65.20 - Severe sepsis without septic shock SNOMED: 46118296 (6) AMS (altered mental status) ICD Codes: R41.82 - Altered mental status, unspecified SNOMED: 671163648 Assessment/Plan: po as tolerated Elevate HOB lactulose>> will decrease to 20 BID PPI f/u ammonia level fu hepatitis panel Mejia Encarnacion MD Nov 06, 2020 06:51
--- NOTE | 2020-11-06 07:45 | NUR ---
NURSE NOTES: Report received from ROXI Estevez. Patient is on bed, eating breakfast, no signs of grimacing or distress noted. Patient verbalized no pain. Currently on 2L NC, tolerating well with saturations in the 90s. Patient is currently on [facility] regular diet. Has a L AC 20 g, patent, intact, saline locked IV line, and a R W 22 g, patent, intact, saline locked. HOB elevated, bed on lowest position, locked, side rails up, call light within reach, bed side table next to bed. Will continue to monitor. Will continue plan of care.
[2020-11-06 08:00] VITALS: BP 102/65
[2020-11-06] MEDS ORDERED: Lactulose 20gm/30ml UDC ORAL SCH (09:00)
--- NOTE | 2020-11-06 09:07 | Infectious Diseases Prog Note ---
Assessment/Plan 60yo M with: Sepsis Afebrile Hypoxia on BiPAP >> NRB mask >> venti mask Leukocytosis to 14, improving Lymphopenia 11/01 BCx NTD COVID PCR neg CXR: Elevated right hemidiaphragm. Possible right basilar airspace disease and right effusion. CTH: No acute process EtOH abuse Cirrhosis, Fatty liver Masive ascites Elevated AST to 48 Acute hep panel p 11/01 CT A/P: CIRRHOSIS WITH LARGE AMOUNT OF ASCITES. SPLENIC GRANULOMAS. SLUDGE IN THE GALLBLADDER. SMALL RIGHT PLEURAL EFFUSION WITH COMPRESSIVE ATELECTASIS RIGHT LOWER LOBE. ELEVATED RIGHT HEMIDIAPHRAGM. 11/02 Paracentesis, 10.2L removed 838 RBC, 142 WBC, 2%PMN, 94%[place]'s Cx - NTD DAVIDE vs CKD, Cr 2.4, improving PMH: EtOH abuse, stopped drinking in Sep 2020 Fatty liver DM2 HTN Plan: Cont empiric Zosyn #6/7-10 for possible pna, less likely SBP F/u HIV screen, acute hep panel - d/w lab about where are results, they will look into it Trend WBC - improving 11/03 SP vanco #2 Monitor CBC/CMP Monitor temp curve, hemodynamics Monitor resp status D/w RN and lab at length Thank you for this consult. [facility] will continue to follow. Subjective Allergies: Coded Allergies: No Known Allergies (Unverified , 10/02/16) AF NAD on 3L NC WBC stable at 15 Objective Last 24 Hour Vital Signs Date Time Temp Pulse Resp B/P (MAP) Pulse Ox O2 Delivery O2 Flow Rate FiO2 11/06/20 04:00 Nasal Cannula 3.0 11/06/20 04:00 95.7 78 20 105/64 (78) 97 11/06/20 04:00 84 11/06/20 03:04 97.0 11/06/20 00:00 Nasal Cannula 3.0 11/06/20 00:00 91 11/06/20 00:00 95.9 100 20 106/70 (82) 97 11/05/20 20:00 97.5 97 20 113/68 (83) 99 11/05/20 20:00 Nasal Cannula 3.0 11/05/20 20:00 93 11/05/20 19:38 95 20 97 Nasal Cannula 3.0 32 11/05/20 19:38 97 Nasal Cannula 3.0 32 11/05/20 16:00 Nasal Cannula 3.0 11/05/20 16:00 92 11/05/20 16:00 97.7 96 20 99/62 (74) 99 11/05/20 12:00 93 11/05/20 12:00 97.7 92 20 102/63 (76) 97 11/05/20 12:00 Nasal Cannula 3.0 Height (Feet): 6 Height (Inches): 1.00 Weight (Pounds): 200 Gen: NAD HEENT: NCAT, EOMI Pulm: BL chest rise on venti mask Abd: Less distended than prior, soft, NT Ext: No c/c/e Neuro: Awake, interactive, slow to answer questions Laboratory Tests Test 11/05/20 11:18 11/05/20 16:03 11/05/20 21:25 11/06/20 03:00 POC Whole Blood Glucose 143 MG/DL (74-106) H 128 MG/DL (74-106) H 140 MG/DL (74-106) H White Blood Count 15.1 K/UL (4.8-10.8) H Red Blood Count 2.81 M/UL (4.70-6.10) L Hemoglobin 9.6 G/DL (14.2-18.0) L Hematocrit 29.4 % (42.0-52.0) L Mean Corpuscular Volume 104 FL (80-99) H Mean Corpuscular Hemoglobin 34.2 PG (27.0-31.0) H Mean Corpuscular Hemoglobin Concent 32.7 G/DL (32.0-36.0) Red Cell Distribution Width 18.9 % (11.6-14.8) H Platelet Count 152 K/UL (150-450) Mean Platelet Volume 6.4 FL (6.5-10.1) L Neutrophils (%) (Auto) 83.5 % (45.0-75.0) H Lymphocytes (%) (Auto) 8.7 % (20.0-45.0) L Monocytes (%) (Auto) 6.7 % (1.0-10.0) Eosinophils (%) (Auto) 0.6 % (0.0-3.0) Basophils (%) (Auto) 0.5 % (0.0-2.0) Sodium Level 135 MMOL/L (136-145) L Potassium Level 3.8 MMOL/L (3.5-5.1) Chloride Level 96 MMOL/L (98-107) L Carbon Dioxide Level 32 MMOL/L (21-32) Anion Gap 7 mmol/L (5-15) Blood Urea Nitrogen 41 mg/dL (7-18) H Creatinine 2.5 MG/DL (0.55-1.30) H Estimat Glomerular Filtration Rate 26.7 mL/min (>60) Glucose Level 104 MG/DL (74-106) Calcium Level 8.3 MG/DL (8.5-10.1) L Total Bilirubin 2.1 MG/DL (0.2-1.0) H Direct Bilirubin 0.8 MG/DL (0.0-0.3) H Aspartate Amino Transf (AST/SGOT) 48 U/L (15-37) H Alanine Aminotransferase (ALT/SGPT) 11 U/L (12-78) L Alkaline Phosphatase 104 U/L (46-116) Total Protein 6.2 G/DL (6.4-8.2) L Albumin 1.4 G/DL (3.4-5.0) L Globulin 4.8 g/dL Albumin/Globulin Ratio 0.3 (1.0-2.7) L Test 11/06/20 05:21 POC Whole Blood Glucose 119 MG/DL (74-106) H Current Medications Medications (Trade) Dose Ordered Sig/Kylah Route PRN Reason Start Time Stop Time Status Last Admin Dose Admin Acetaminophen (Tylenol) 500 mg Q6H PRN ORAL Mild Pain 11/02/20 08:30 12/02/20 08:29 11/06/20 02:34 Acetaminophen (Tylenol) 500 mg Q6H PRN ORAL fever > 100.2 11/02/20 08:45 12/02/20 08:44 Allopurinol (Zyloprim) 200 mg DAILY ORAL 11/04/20 15:00 12/04/20 14:59 11/05/20 08:24 Dextrose (Dextrose 50%) 25 ml Q30M PRN IV Hypoglycemia 11/01/20 18:30 01/30/21 18:29 Dextrose (Dextrose 50%) 50 ml Q30M PRN IV Hypoglycemia 11/01/20 18:30 01/30/21 18:29 Folic Acid (Folate) 3 mg DAILY ORAL 11/03/20 13:15 12/03/20 13:14 11/05/20 08:23 Heparin Sodium (Porcine) (Heparin 5000 units/ml) 5,000 units EVERY 12 HOURS SUBQ 11/01/20 21:00 12/16/20 20:59 11/05/20 21:31 Insulin Aspart (NovoLOG) BEFORE MEALS AND HS SUBQ 11/01/20 21:00 01/30/21 20:59 11/05/20 21:27 Lactulose (Cephulac) 20 gm BID ORAL 11/06/20 09:00 12/06/20 08:59 Midodrine (Pro-Amatine) 10 mg Q8HR ORAL 11/02/20 14:00 01/31/21 13:59 11/06/20 05:30 Pantoprazole (Protonix) 40 mg EVERY 12 HOURS ORAL 11/02/20 21:00 12/02/20 20:59 11/05/20 21:29 Piperacillin Sod/ Tazobactam Sod 3.375 gm/Sodium Chloride 110 ml @ 27.5 mls/hr EVERY 8 HOURS IVPB 11/01/20 22:00 11/06/20 21:59 11/06/20 05:22 Potassium Chloride (K-Dur) 40 meq TWICE A DAY ORAL 11/04/20 18:00 02/02/21 17:59 11/05/20 17:49 Rifaximin (Xifaxan) 550 mg EVERY 12 HOURS ORAL 11/02/20 21:00 11/09/20 20:59 11/05/20 21:29 Viviana Casper M.D. Nov 06, 2020 09:07
[2020-11-06] MEDS: Allopurinol 100mg Tab ORAL SCH (09:12)
[2020-11-06] MEDS: Heparin 5000 units/ml inj SUBQ SCH ×2 (09:14→21:11)
--- NOTE | 2020-11-06 11:01 | Nephrology Progress Note ---
Assessment/Plan Problem List: (1) Renal failure (ARF), acute on chronic (2) Electrolyte imbalance (3) Hypokalemia (4) Cirrhosis (5) DMII (diabetes mellitus, type 2) (6) Anemia (7) HTN (hypertension) Assessment Renal failure most likely acute on chronic Electrolyte imbalances, hypokalemia Sepsis Hepatic encephalopathy, ascites, fatty liver Anemia History of EtOH abuse, history of tobacco abuse, history of drug abuse Diabetes mellitus type 2 Hypertension Lymphopenia, leukocytosis, hypoxia Plan November 06: Labs reviewed. Serum creatinine 2.5 unchanged. Continue per consultants. November 05: Labs reviewed. Serum creatinine plateauing. Status quo. Electrolyte acceptable. Now on oxygen by cannula. Continue per consultants. November 04 labs reviewed. Patient full code. On Venturi mask. Low potassium addressed. Serum creatinine rising. Continue to monitor renal parameters. Allopurinol initiated November 03: Labs reviewed. Medication list reviewed. Abnormal electrolyte addressed. Continue monitor renal parameters. Continue per consultants. Previously: Trial of 3% saline and albumin bolus Potassium supplement Monitor renal parameters, ammonia, electrolytes ordered Subjective ROS Limited/Unobtainable: No Constitutional: Reports: malaise Objective Objective Last 24 Hour Vital Signs Date Time Temp Pulse Resp B/P (MAP) Pulse Ox O2 Delivery O2 Flow Rate FiO2 11/06/20 08:00 100 11/06/20 08:00 98.2 93 20 102/65 (77) 96 11/06/20 08:00 Nasal Cannula 3.0 11/06/20 04:00 Nasal Cannula 3.0 11/06/20 04:00 95.7 78 20 105/64 (78) 97 11/06/20 04:00 84 11/06/20 03:04 97.0 11/06/20 00:00 Nasal Cannula 3.0 11/06/20 00:00 91 11/06/20 00:00 95.9 100 20 106/70 (82) 97 11/05/20 20:00 97.5 97 20 113/68 (83) 99 11/05/20 20:00 Nasal Cannula 3.0 11/05/20 20:00 93 11/05/20 19:38 95 20 97 Nasal Cannula 3.0 32 11/05/20 19:38 97 Nasal Cannula 3.0 32 11/05/20 16:00 Nasal Cannula 3.0 11/05/20 16:00 92 2/1/21 16:00 97.7 96 20 99/62 (74) 99 11/05/20 12:00 93 11/05/20 12:00 97.7 92 20 102/63 (76) 97 11/05/20 12:00 Nasal Cannula 3.0 Intake and Output 11/05/20 11/06/20 19:00 07:00 Intake Total 700 ml 241.3 ml Output Total 400 ml 650 ml Balance 300 ml -408.7 ml Intake Oral 700 ml 200 ml IV Total 41.3 ml Output Urine Total 200 ml 300 ml Stool Total 200 ml 350 ml Laboratory Tests 11/05/20 11:18: POC Whole Blood Glucose 143H 11/05/20 16:03: POC Whole Blood Glucose 128H 11/05/20 21:25: POC Whole Blood Glucose 140H 11/06/20 03:00: White Blood Count 15.1H, Red Blood Count 2.81L, Hemoglobin 9.6L, Hematocrit 29.4L, Mean Corpuscular Volume 104H, Mean Corpuscular Hemoglobin 34.2H, Mean Corpuscular Hemoglobin Concent 32.7, Red Cell Distribution Width 18.9H, Platelet Count 152, Mean Platelet Volume 6.4L, Neutrophils (%) (Auto) 83.5H, Lymphocytes (%) (Auto) 8.7L, Monocytes (%) (Auto) 6.7, Eosinophils (%) (Auto) 0.6, Basophils (%) (Auto) 0.5, Sodium Level 135L, Potassium Level 3.8, Chloride Level 96L, Carbon Dioxide Level 32, Anion Gap 7, Blood Urea Nitrogen 41H, Creatinine 2.5H, Estimat Glomerular Filtration Rate 26.7, Glucose Level 104, Calcium Level 8.3L, Total Bilirubin 2.1H, Direct Bilirubin 0.8H, Aspartate Amino Transf (AST/SGOT) 48H, Alanine Aminotransferase (ALT/SGPT) 11L, Alkaline Phosphatase 104, Total Protein 6.2L, Albumin 1.4L, Globulin 4.8, Albumin/Globulin Ratio 0.3L, HIV (1&2) Antibody Rapid [Pending] 11/06/20 05:21: POC Whole Blood Glucose 119H Height (Feet): 6 Height (Inches): 1.00 Weight (Pounds): 200 General Appearance: no apparent distress, lethargic Cardiovascular: tachycardia Respiratory/Chest: decreased breath sounds Abdomen: distended Kalin Pozo MD Nov 06, 2020 11:01
--- NOTE | 2020-11-06 11:49 | NUR ---
NURSE NOTES: blood sugar taken and patient's blood sugar within normal limits. noon novolog non-administered.
[2020-11-06 12:00] VITALS: BP 108/63
--- NOTE | 2020-11-06 14:29 | NUR ---
NURSE NOTES: Midodrine non-administered. Patient's current blood pressure is 112/62. Per eMAR, hold medication when SBP is greater than 105.
--- NOTE | 2020-11-06 15:45 | NUR ---
CASE MANAGEMENT:REVIEW 11/06/20 SI: SEPSIS. HYPOXIA. ETOH ABUSE. ASCITES S/P PARACENTESIS~ 10.2 L REMOVED 98.1 103 22 108/63 95% ON 3L/NC WBC+15.1 BUN+41 CR+2.5 IS: IV ZOSYN Q8HRS K-DUR PO BID ALLOPURINOL PO QD FOLATE PO QD PROTONIX PO Q12 RIFAXIMIN PO Q12 MIDODRINE PO Q8HRS LACTULOSE PO TID HEPARIN SQ Q12 : STEP DOWN UNIT DCP: FROM HOME...
[2020-11-06 16:00] VITALS: BP 112/64
--- NOTE | 2020-11-06 18:42 | Internal Med Progress Note ---
Subjective Date of Service: Nov 06, 2020 Physician Name CaseJered segal Attending Physician Ramon Coombs MD Current Medications Medications (Trade) Dose Ordered Sig/Kylah Route PRN Reason Start Time Stop Time Status Last Admin Dose Admin Acetaminophen (Tylenol) 500 mg Q6H PRN ORAL Mild Pain 11/02/20 08:30 12/02/20 08:29 11/06/20 18:06 Acetaminophen (Tylenol) 500 mg Q6H PRN ORAL fever > 100.2 11/02/20 08:45 12/02/20 08:44 Allopurinol (Zyloprim) 200 mg DAILY ORAL 11/04/20 15:00 12/04/20 14:59 11/06/20 09:12 Dextrose (Dextrose 50%) 25 ml Q30M PRN IV Hypoglycemia 11/01/20 18:30 01/30/21 18:29 Dextrose (Dextrose 50%) 50 ml Q30M PRN IV Hypoglycemia 11/01/20 18:30 01/30/21 18:29 Folic Acid (Folate) 3 mg DAILY ORAL 11/03/20 13:15 12/03/20 13:14 11/06/20 09:12 Heparin Sodium (Porcine) (Heparin 5000 units/ml) 5,000 units EVERY 12 HOURS SUBQ 11/01/20 21:00 12/16/20 20:59 11/06/20 09:14 Insulin Aspart (NovoLOG) BEFORE MEALS AND HS SUBQ 11/01/20 21:00 01/30/21 20:59 11/05/20 21:27 Lactulose (Cephulac) 20 gm EVERY 12 HOURS ORAL 11/06/20 21:00 12/06/20 08:59 Midodrine (Pro-Amatine) 10 mg Q8HR ORAL 11/02/20 14:00 01/31/21 13:59 11/06/20 05:30 Pantoprazole (Protonix) 40 mg EVERY 12 HOURS ORAL 11/02/20 21:00 12/02/20 20:59 11/06/20 09:12 Piperacillin Sod/ Tazobactam Sod 3.375 gm/Sodium Chloride 110 ml @ 27.5 mls/hr EVERY 8 HOURS IVPB 11/01/20 22:00 11/10/20 23:59 11/06/20 13:11 Potassium Chloride (K-Dur) 40 meq EVERY 12 HOURS ORAL 11/06/20 21:00 02/02/21 17:59 Rifaximin (Xifaxan) 550 mg EVERY 12 HOURS ORAL 11/02/20 21:00 11/09/20 20:59 11/06/20 09:12 Allergies: Coded Allergies: No Known Allergies (Unverified , 10/02/16) ROS Limited/Unobtainable: No Constitutional: Reports: no symptoms HEENT: Reports: no symptoms Cardiovascular: Reports: no symptoms Respiratory: Reports: no symptoms Gastrointestinal/Abdominal: Reports: no symptoms Genitourinary: Reports: no symptoms Neurologic/Psychiatric: Reports: no symptoms Subjective 60 YO M with history of alcohol dependence admitted with shortness of breath. Now respiratroy failure. Cover for Int Med-DR Coombs. Step down unit. S/P paracentesis 11/02/20 Objective Last Vital Signs Date Time Temp Pulse Resp B/P (MAP) Pulse Ox O2 Delivery O2 Flow Rate FiO2 11/06/20 16:00 97.4 104 21 112/64 (80) 95 11/06/20 16:00 Nasal Cannula 3.0 11/06/20 07:17 28 Laboratory Tests Test 11/05/20 21:25 11/06/20 03:00 11/06/20 05:21 11/06/20 11:37 POC Whole Blood Glucose 140 MG/DL (74-106) H 119 MG/DL (74-106) H 137 MG/DL (74-106) H White Blood Count 15.1 K/UL (4.8-10.8) H Red Blood Count 2.81 M/UL (4.70-6.10) L Hemoglobin 9.6 G/DL (14.2-18.0) L Hematocrit 29.4 % (42.0-52.0) L Mean Corpuscular Volume 104 FL (80-99) H Mean Corpuscular Hemoglobin 34.2 PG (27.0-31.0) H Mean Corpuscular Hemoglobin Concent 32.7 G/DL (32.0-36.0) Red Cell Distribution Width 18.9 % (11.6-14.8) H Platelet Count 152 K/UL (150-450) Mean Platelet Volume 6.4 FL (6.5-10.1) L Neutrophils (%) (Auto) 83.5 % (45.0-75.0) H Lymphocytes (%) (Auto) 8.7 % (20.0-45.0) L Monocytes (%) (Auto) 6.7 % (1.0-10.0) Eosinophils (%) (Auto) 0.6 % (0.0-3.0) Basophils (%) (Auto) 0.5 % (0.0-2.0) Sodium Level 135 MMOL/L (136-145) L Potassium Level 3.8 MMOL/L (3.5-5.1) Chloride Level 96 MMOL/L (98-107) L Carbon Dioxide Level 32 MMOL/L (21-32) Anion Gap 7 mmol/L (5-15) Blood Urea Nitrogen 41 mg/dL (7-18) H Creatinine 2.5 MG/DL (0.55-1.30) H Estimat Glomerular Filtration Rate 26.7 mL/min (>60) Glucose Level 104 MG/DL (74-106) Calcium Level 8.3 MG/DL (8.5-10.1) L Total Bilirubin 2.1 MG/DL (0.2-1.0) H Direct Bilirubin 0.8 MG/DL (0.0-0.3) H Aspartate Amino Transf (AST/SGOT) 48 U/L (15-37) H Alanine Aminotransferase (ALT/SGPT) 11 U/L (12-78) L Alkaline Phosphatase 104 U/L (46-116) Total Protein 6.2 G/DL (6.4-8.2) L Albumin 1.4 G/DL (3.4-5.0) L Globulin 4.8 g/dL Albumin/Globulin Ratio 0.3 (1.0-2.7) L HIV (1&2) Antibody Rapid Pending Test 11/06/20 16:17 POC Whole Blood Glucose 130 MG/DL (74-106) H Intake and Output 11/05/20 11/06/20 19:00 07:00 Intake Total 700 ml 241.3 ml Output Total 400 ml 650 ml Balance 300 ml -408.7 ml Intake Oral 700 ml 200 ml IV Total 41.3 ml Output Urine Total 200 ml 300 ml Stool Total 200 ml 350 ml Objective Objective General: No acute distress, awake and alert HEENT: NCAT, sclera anicteric, PERRL, EOMI. Neck: Supple, no significant jugular venous distention, Lungs: Nasal canula; Fair inspiratory effort, , no Wheeze or Rales. Heart: Regular rate and rhythm, normal S1/S2, no murmurs Abdomen: soft, nontender, +distended. positive fluid shift, bowel sound present. / Rectal: Refused and deferred. Extremities: No Cyanosis , clubbing or edema. Neuro: A&O x 3, Able to move all extremities Skin: warm, no rash Assessment/Plan Assessment/Plan Assessment/Plan Assessment/Plan Sepsis Acute Hypoxia on BiPAP >> NRB mask >> venturi mask>>nasal canula alcohol abuse Liver Cirrhosis, Fatty liver Massive ascites renal failure DM2 HTN Plan: Cont empiric vanco/Zosyn High volume paracentesis, COVID PCR=Neg F/u BCx GI=Dr Encarnacion Nephrol=Dr Pozo S/P paracentesis 11/02/20 Jered Case MD Nov 06, 2020 18:42
--- NOTE | 2020-11-06 19:42 | NUR ---
NURSE HAND-OFF REPORT: Important Events on Shift: stable Patient Status: Diet: Pending Orders: Pending Results/Labs: Pending MD notification: Latest Vital Signs: Temperature 97.4 , Pulse 104 , B/P 112 /64 , Respiratory Rate 21 , O2 SAT 95 , Bi-pap, O2 Flow Rate 3.0 . Vital Sign Comment: EKG Rhythm: Sinus Tachycardia Rhythm change?: N MD Notified?: - MD Response: Latest Childs Fall Score: 70 Fall Risk: High Risk Safety Measures: Call light Within Reach, Bed Alarm Zone 1, Side Rails Side Rails x3, Bed position Low and Locked. Fall Precautions: Yellow Socks Yellow Gown Door Sign Patient Fall Education Report given to ROXI Guerrero.
[2020-11-06 20:00] VITALS: BP 108/64
[2020-11-06] MEDS: Lactulose 20gm/30ml UDC ORAL SCH (20:48)
[2020-11-07] VITALS: BP 111/62
[2020-11-07 04:00] VITALS: BP 112/64
[2020-11-07] MEDS: NovoLOG Insulin Flexpen SUBQ SCH ×4 (05:13→21:00)
[2020-11-07 05:14] LABS: EOSINOPHILS % (AUTO) 0.8 % (0.0-3.0); HEMATOCRIT 26.9 % (42.0-52.0); LYMPHOCYTES % (AUTO) 7.7 % (20.0-45.0); MEAN CORPUSCULAR VOLUME 103 FL (80-99); MONOCYTES % (AUTO) 8.5 % (1.0-10.0); NEUTROPHILS % (AUTO) 81.9 % (45.0-75.0); PLATELET COUNT 162 K/UL (150-450); RED CELL DISTRIBUTION WIDTH 18.4 % (11.6-14.8); WHITE BLOOD COUNT 14.9 K/UL (4.8-10.8)
[2020-11-07] MEDS: Midodrine 10mg tab ORAL SCH ×3 (05:30→21:37)
[2020-11-07] MEDS: Piperacillin/Tazobactam 3.375 GM in NS 110 ML IVPB SCH ×3 (05:30→21:37)
[2020-11-07 05:56] LABS: ALBUMIN 1.4 G/DL (3.4-5.0); ALBUMIN/GLOBULIN RATIO 0.3 (1.0-2.7); BILIRUBIN,TOTAL 2.1 MG/DL (0.2-1.0); CALCIUM 8.1 MG/DL (8.5-10.1); CREATININE 2.3 MG/DL (0.55-1.30); POTASSIUM 3.9 MMOL/L (3.5-5.1)
[2020-11-07 06:01] LABS: BILIRUBIN,DIRECT 0.9 MG/DL (0.0-0.3)
--- NOTE | 2020-11-07 07:24 | NUR ---
NURSE NOTES: Received report RN Cesar patient awake conversant ,smile and wave at me-recognize me,on bed sitting up,on 3 liters O2 nasal cannula,fallon dark urine,no distress
[2020-11-07 08:00] VITALS: BP 135/75
--- NOTE | 2020-11-07 08:15 | NUR ---
NURSE NOTES: Report given to Josh
--- NOTE | 2020-11-07 08:15 | NUR ---
NURSE NOTES: Received report from ROXI Resendiz. Patient awake and AAO x4. Patient is on Oxygen 3L/min via N/C. No sob/distress noted. SR on the monitor. Patient denies chest pain. Left FA 20G IV intact and running with zosyn at this time. Kept dry, clean and comfortable. Will continue plan of care.
--- NOTE | 2020-11-07 08:55 | Infectious Diseases Prog Note ---
Assessment/Plan 60yo M with: Sepsis Afebrile Hypoxia on BiPAP >> NRB mask >> venti mask Leukocytosis to 14, improving Lymphopenia 11/01 BCx NTD COVID PCR neg CXR: Elevated right hemidiaphragm. Possible right basilar airspace disease and right effusion. CTH: No acute process EtOH abuse Cirrhosis, Fatty liver Masive ascites Elevated AST to 48 Acute hep panel p 11/01 CT A/P: CIRRHOSIS WITH LARGE AMOUNT OF ASCITES. SPLENIC GRANULOMAS. SLUDGE IN THE GALLBLADDER. SMALL RIGHT PLEURAL EFFUSION WITH COMPRESSIVE ATELECTASIS RIGHT LOWER LOBE. ELEVATED RIGHT HEMIDIAPHRAGM. 11/02 Paracentesis, 10.2L removed 838 RBC, 142 WBC, 2%PMN, 94%Crane's Cx - NTD DAVIDE vs CKD, Cr 2.4, improving HIV screen neg PMH: EtOH abuse, stopped drinking in Sep 2020 Fatty liver DM2 HTN Plan: Cont empiric Zosyn #7/7-10 for possible pna, less likely SBP F/u acute hep panel - d/w lab about where are results, they will look into it Trend WBC, overall stable 11/03 SP vanco #2 Monitor CBC/CMP Monitor temp curve, hemodynamics Monitor resp status D/w RN and lab at length Thank you for this consult. [facility] will continue to follow. Subjective Allergies: Coded Allergies: No Known Allergies (Unverified , 10/02/16) AF NAD WBC stable at 14 Feeling overall better, still w/ same abd pain from distension Eating lunch Objective Last 24 Hour Vital Signs Date Time Temp Pulse Resp B/P (MAP) Pulse Ox O2 Delivery O2 Flow Rate FiO2 11/07/20 08:00 97.5 110 20 135/75 (95) 97 11/07/20 04:00 100 11/07/20 04:00 Nasal Cannula 3.0 11/07/20 04:00 97.4 104 21 112/64 (80) 95 11/07/20 00:00 Nasal Cannula 3.0 11/07/20 00:00 98.1 95 18 111/62 (78) 97 11/06/20 20:00 98.1 100 21 108/64 (79) 95 11/06/20 20:00 Nasal Cannula 3.0 11/06/20 20:00 Nasal Cannula 3.0 11/06/20 20:00 100 11/06/20 16:00 97.4 104 21 112/64 (80) 95 11/06/20 16:00 Nasal Cannula 3.0 11/06/20 15:38 104 11/06/20 12:00 Nasal Cannula 3.0 11/06/20 12:00 98.1 103 22 108/63 (78) 95 11/06/20 11:51 104 Height (Feet): 6 Height (Inches): 1.00 Weight (Pounds): 200 Gen: NAD HEENT: NCAT, EOMI Pulm: BL chest rise on venti mask Abd: Less distended than prior, soft, NT Ext: No c/c/e Neuro: Awake, interactive, slow to answer questions Laboratory Tests Test 11/06/20 11:37 11/06/20 16:17 11/06/20 20:54 11/07/20 03:05 POC Whole Blood Glucose 137 MG/DL (74-106) H 130 MG/DL (74-106) H 146 MG/DL (74-106) H White Blood Count 14.9 K/UL (4.8-10.8) H Red Blood Count 2.60 M/UL (4.70-6.10) L Hemoglobin 9.0 G/DL (14.2-18.0) L Hematocrit 26.9 % (42.0-52.0) L Mean Corpuscular Volume 103 FL (80-99) H Mean Corpuscular Hemoglobin 34.7 PG (27.0-31.0) H Mean Corpuscular Hemoglobin Concent 33.6 G/DL (32.0-36.0) Red Cell Distribution Width 18.4 % (11.6-14.8) H Platelet Count 162 K/UL (150-450) Mean Platelet Volume 6.3 FL (6.5-10.1) L Neutrophils (%) (Auto) 81.9 % (45.0-75.0) H Lymphocytes (%) (Auto) 7.7 % (20.0-45.0) L Monocytes (%) (Auto) 8.5 % (1.0-10.0) Eosinophils (%) (Auto) 0.8 % (0.0-3.0) Basophils (%) (Auto) 1.0 % (0.0-2.0) Sodium Level 134 MMOL/L (136-145) L Potassium Level 3.9 MMOL/L (3.5-5.1) Chloride Level 96 MMOL/L (98-107) L Carbon Dioxide Level 30 MMOL/L (21-32) Anion Gap 8 mmol/L (5-15) Blood Urea Nitrogen 43 mg/dL (7-18) H Creatinine 2.3 MG/DL (0.55-1.30) H Estimat Glomerular Filtration Rate 29.4 mL/min (>60) Glucose Level 99 MG/DL (74-106) Calcium Level 8.1 MG/DL (8.5-10.1) L Phosphorus Level 3.0 MG/DL (2.5-4.9) Magnesium Level 1.6 MG/DL (1.8-2.4) L Total Bilirubin 2.1 MG/DL (0.2-1.0) H Direct Bilirubin 0.9 MG/DL (0.0-0.3) H Aspartate Amino Transf (AST/SGOT) 49 U/L (15-37) H Alanine Aminotransferase (ALT/SGPT) 12 U/L (12-78) Alkaline Phosphatase 108 U/L (46-116) Ammonia 15 umol/L (11-32) Total Protein 6.3 G/DL (6.4-8.2) L Albumin 1.4 G/DL (3.4-5.0) L Globulin 4.9 g/dL Albumin/Globulin Ratio 0.3 (1.0-2.7) L Test 11/07/20 05:01 POC Whole Blood Glucose 97 MG/DL (74-106) Current Medications Medications (Trade) Dose Ordered Sig/Kylah Route PRN Reason Start Time Stop Time Status Last Admin Dose Admin Acetaminophen (Tylenol) 500 mg Q6H PRN ORAL Mild Pain 11/02/20 08:30 12/02/20 08:29 11/06/20 18:06 Acetaminophen (Tylenol) 500 mg Q6H PRN ORAL fever > 100.2 11/02/20 08:45 12/02/20 08:44 Allopurinol (Zyloprim) 200 mg DAILY ORAL 11/04/20 15:00 12/04/20 14:59 11/06/20 09:12 Dextrose (Dextrose 50%) 25 ml Q30M PRN IV Hypoglycemia 11/01/20 18:30 01/30/21 18:29 Dextrose (Dextrose 50%) 50 ml Q30M PRN IV Hypoglycemia 11/01/20 18:30 01/30/21 18:29 Folic Acid (Folate) 3 mg DAILY ORAL 11/03/20 13:15 12/03/20 13:14 11/06/20 09:12 Heparin Sodium (Porcine) (Heparin 5000 units/ml) 5,000 units EVERY 12 HOURS SUBQ 11/01/20 21:00 12/16/20 20:59 11/06/20 21:11 Insulin Aspart (NovoLOG) BEFORE MEALS AND HS SUBQ 11/01/20 21:00 01/30/21 20:59 11/06/20 21:10 Lactulose (Cephulac) 20 gm EVERY 12 HOURS ORAL 11/06/20 21:00 12/06/20 08:59 Midodrine (Pro-Amatine) 10 mg Q8HR ORAL 11/02/20 14:00 01/31/21 13:59 11/07/20 05:30 Pantoprazole (Protonix) 40 mg EVERY 12 HOURS ORAL 11/02/20 21:00 12/02/20 20:59 11/06/20 21:07 Piperacillin Sod/ Tazobactam Sod 3.375 gm/Sodium Chloride 110 ml @ 27.5 mls/hr EVERY 8 HOURS IVPB 11/01/20 22:00 11/10/20 23:59 11/07/20 05:30 Potassium Chloride (K-Dur) 40 meq EVERY 12 HOURS ORAL 11/06/20 21:00 02/02/21 17:59 11/06/20 21:07 Rifaximin (Xifaxan) 550 mg EVERY 12 HOURS ORAL 11/02/20 21:00 11/09/20 20:59 11/06/20 21:12 Viviana Casper M.D. Nov 07, 2020 08:55
--- NOTE | 2020-11-07 08:58 | NUR ---
RD ASSESSMENT & RECOMMENDATIONS SEE CARE ACTIVITY FOR COMPLETE ASSESSMENT DAILY ESTIMATED NEEDS: Needs based on Liver, DM 85.1 25-30 kcals/kg 7030-0237 total kcals 1.25-1.5 g protein/kg 106-128 g total protein Fluid per MD mL/kg total fluid mLs NUTRITION DIAGNOSIS: Decreased sodium and fat needs r/t liver cirrhosis as evidenced by s/p paracentesis 10.2L removed, elevated T bili and LFT's, ammonia elevated on adm, now wnl. CURRENT DIET: [facility] PO DIET RECOMMENDATIONS: Low Fat/ Low Sodium textures as tolerated ADDITIONAL RECOMMENDATIONS: 1) With BG >150, rec added [facility] MED diet 2) Obtain a calibrated bed scale wt 3) On lactulose, monitor lytes and hydration status 4) AM snacks daily 5) Skin integrity-> add TERRENCE BID
[2020-11-07] MEDS: Lactulose 20gm/30ml UDC ORAL SCH ×2 (09:03→20:29)
[2020-11-07] MEDS: Allopurinol 100mg Tab ORAL SCH (09:03)
[2020-11-07] MEDS: Heparin 5000 units/ml inj SUBQ SCH ×2 (09:04→20:30)
--- NOTE | 2020-11-07 10:39 | General Progress Note ---
Subjective ROS Limited/Unobtainable: Yes Allergies: Coded Allergies: No Known Allergies (Unverified , 10/02/16) Objective Last 24 Hour Vital Signs Date Time Temp Pulse Resp B/P (MAP) Pulse Ox O2 Delivery O2 Flow Rate FiO2 11/07/20 09:40 104 11/07/20 09:21 103 18 99 Nasal Cannula 3.0 32 11/07/20 09:21 99 Nasal Cannula 2.0 28 11/07/20 08:00 97.5 110 20 135/75 (95) 97 11/07/20 08:00 Nasal Cannula 3.0 11/07/20 04:00 100 11/07/20 04:00 Nasal Cannula 3.0 11/07/20 04:00 97.4 104 21 112/64 (80) 95 11/07/20 00:00 Nasal Cannula 3.0 11/07/20 00:00 98.1 95 18 111/62 (78) 97 11/06/20 20:00 98.1 100 21 108/64 (79) 95 11/06/20 20:00 Nasal Cannula 3.0 11/06/20 20:00 Nasal Cannula 3.0 11/06/20 20:00 100 11/06/20 16:00 97.4 104 21 112/64 (80) 95 11/06/20 16:00 Nasal Cannula 3.0 11/06/20 15:38 104 11/06/20 12:00 Nasal Cannula 3.0 11/06/20 12:00 98.1 103 22 108/63 (78) 95 11/06/20 11:51 104 Intake and Output 11/06/20 11/07/20 19:00 07:00 Intake Total 500 ml Output Total 600 ml 500 ml Balance -100 ml -500 ml Intake Oral 500 ml Output Urine Total 250 ml 500 ml Stool Total 350 ml # Bowel Movements 2 Laboratory Tests 11/06/20 11:37: POC Whole Blood Glucose 137H 11/06/20 16:17: POC Whole Blood Glucose 130H 11/06/20 20:54: POC Whole Blood Glucose 146H 11/07/20 03:05: White Blood Count 14.9H, Red Blood Count 2.60L, Hemoglobin 9.0L, Hematocrit 26.9L, Mean Corpuscular Volume 103H, Mean Corpuscular Hemoglobin 34.7H, Mean Corpuscular Hemoglobin Concent 33.6, Red Cell Distribution Width 18.4H, Platelet Count 162, Mean Platelet Volume 6.3L, Neutrophils (%) (Auto) 81.9H, Lymphocytes (%) (Auto) 7.7L, Monocytes (%) (Auto) 8.5, Eosinophils (%) (Auto) 0.8, Basophils (%) (Auto) 1.0, Sodium Level 134L, Potassium Level 3.9, Chloride Level 96L, Carbon Dioxide Level 30, Anion Gap 8, Blood Urea Nitrogen 43H, Creatinine 2.3H, Estimat Glomerular Filtration Rate 29.4, Glucose Level 99, Calcium Level 8.1L, Phosphorus Level 3.0, Magnesium Level 1.6L, Total Bilirubin 2.1H, Direct Bilirubin 0.9H, Aspartate Amino Transf (AST/SGOT) 49H, Alanine Aminotransferase (ALT/SGPT) 12, Alkaline Phosphatase 108, Ammonia 15, Total Protein 6.3L, Albumin 1.4L, Globulin 4.9, Albumin/Globulin Ratio 0.3L 11/07/20 05:01: POC Whole Blood Glucose 97 Height (Feet): 6 Height (Inches): 1.00 Weight (Pounds): 200 General Appearance: no apparent distress EENT: normal ENT inspection Neck: supple Cardiovascular: normal rate Respiratory/Chest: decreased breath sounds Abdomen: normal bowel sounds, non tender, soft Extremities: non-tender Assessment/Plan Problem List: (1) Cirrhosis ICD Codes: K74.60 - Unspecified cirrhosis of liver SNOMED: 14111617 (2) Hepatic encephalopathy ICD Codes: K72.90 - Hepatic failure, unspecified without coma; R65.20 - Severe sepsis without septic shock SNOMED: 20040904 (3) Hypokalemia ICD Codes: E87.6 - Hypokalemia; R65.20 - Severe sepsis without septic shock SNOMED: 23834773 (4) Ascites ICD Codes: R18.8 - Other ascites SNOMED: 601951897 (5) Severe sepsis ICD Codes: A41.9 - Sepsis, unspecified organism; R65.20 - Severe sepsis without septic shock SNOMED: 81222296 (6) AMS (altered mental status) ICD Codes: R41.82 - Altered mental status, unspecified SNOMED: 980130666 Assessment/Plan: Assessment/Plan Problem List: (1) Cirrhosis ICD Codes: K74.60 - Unspecified cirrhosis of liver SNOMED: 63733774 (2) Hepatic encephalopathy ICD Codes: K72.90 - Hepatic failure, unspecified without coma; R65.20 - Severe sepsis without septic shock SNOMED: 05451345 (3) Hypokalemia ICD Codes: E87.6 - Hypokalemia; R65.20 - Severe sepsis without septic shock SNOMED: 80016701 (4) Ascites ICD Codes: R18.8 - Other ascites SNOMED: 872953643 (5) Severe sepsis ICD Codes: A41.9 - Sepsis, unspecified organism; R65.20 - Severe sepsis without septic shock SNOMED: 07357613 (6) AMS (altered mental status) ICD Codes: R41.82 - Altered mental status, unspecified SNOMED: 607104369 Assessment/Plan: po as tolerated Elevate HOB lactulose>> will decrease to 20 BID PPI f/u ammonia level fu hepatitis panel Mejia Encarnacion MD Nov 07, 2020 10:39
[2020-11-07] MEDS: Acetaminophen 500mg (ES) tab ORAL PRN ×2 (11:50→22:56)
[2020-11-07 12:00] VITALS: BP 119/72
--- NOTE | 2020-11-07 12:07 | NUR ---
NURSE NOTES: Seen by Dr. Casper and assessed patient. NNO.
--- NOTE | 2020-11-07 12:36 | Internal Med Progress Note ---
Subjective Date of Service: Nov 07, 2020 Physician Name CaseJered segal Attending Physician Ramon Coombs MD Current Medications Medications (Trade) Dose Ordered Sig/Kylah Route PRN Reason Start Time Stop Time Status Last Admin Dose Admin Acetaminophen (Tylenol) 500 mg Q6H PRN ORAL Mild Pain 11/02/20 08:30 12/02/20 08:29 11/07/20 11:50 Acetaminophen (Tylenol) 500 mg Q6H PRN ORAL fever > 100.2 11/02/20 08:45 12/02/20 08:44 Allopurinol (Zyloprim) 200 mg DAILY ORAL 11/04/20 15:00 12/04/20 14:59 11/07/20 09:03 Dextrose (Dextrose 50%) 25 ml Q30M PRN IV Hypoglycemia 11/01/20 18:30 01/30/21 18:29 Dextrose (Dextrose 50%) 50 ml Q30M PRN IV Hypoglycemia 11/01/20 18:30 01/30/21 18:29 Folic Acid (Folate) 3 mg DAILY ORAL 11/03/20 13:15 12/03/20 13:14 11/07/20 09:03 Heparin Sodium (Porcine) (Heparin 5000 units/ml) 5,000 units EVERY 12 HOURS SUBQ 11/01/20 21:00 12/16/20 20:59 11/07/20 09:04 Insulin Aspart (NovoLOG) BEFORE MEALS AND HS SUBQ 11/01/20 21:00 01/30/21 20:59 11/07/20 11:25 Lactulose (Cephulac) 20 gm EVERY 12 HOURS ORAL 11/06/20 21:00 12/06/20 08:59 11/07/20 09:03 Midodrine (Pro-Amatine) 10 mg Q8HR ORAL 11/02/20 14:00 01/31/21 13:59 11/07/20 05:30 Pantoprazole (Protonix) 40 mg EVERY 12 HOURS ORAL 11/02/20 21:00 12/02/20 20:59 11/07/20 09:03 Piperacillin Sod/ Tazobactam Sod 3.375 gm/Sodium Chloride 110 ml @ 27.5 mls/hr EVERY 8 HOURS IVPB 11/01/20 22:00 11/10/20 23:59 11/07/20 05:30 Potassium Chloride (K-Dur) 40 meq EVERY 12 HOURS ORAL 11/06/20 21:00 02/02/21 17:59 11/07/20 09:04 Rifaximin (Xifaxan) 550 mg EVERY 12 HOURS ORAL 11/02/20 21:00 11/09/20 20:59 11/07/20 09:03 Allergies: Coded Allergies: No Known Allergies (Unverified , 10/02/16) ROS Limited/Unobtainable: Yes Subjective 60 YO M with history of alcohol dependence admitted with shortness of breath. Now respiratroy failure. Cover for Int Med-DR Coombs. Step down unit. S/P paracentesis 11/02/20 Objective Last Vital Signs Date Time Temp Pulse Resp B/P (MAP) Pulse Ox O2 Delivery O2 Flow Rate FiO2 11/07/20 12:00 97.9 105 20 119/72 (88) 97 11/07/20 12:00 Nasal Cannula 3.0 11/07/20 09:21 32 Laboratory Tests Test 11/06/20 16:17 11/06/20 20:54 11/07/20 03:05 11/07/20 05:01 POC Whole Blood Glucose 130 MG/DL (74-106) H 146 MG/DL (74-106) H 97 MG/DL (74-106) White Blood Count 14.9 K/UL (4.8-10.8) H Red Blood Count 2.60 M/UL (4.70-6.10) L Hemoglobin 9.0 G/DL (14.2-18.0) L Hematocrit 26.9 % (42.0-52.0) L Mean Corpuscular Volume 103 FL (80-99) H Mean Corpuscular Hemoglobin 34.7 PG (27.0-31.0) H Mean Corpuscular Hemoglobin Concent 33.6 G/DL (32.0-36.0) Red Cell Distribution Width 18.4 % (11.6-14.8) H Platelet Count 162 K/UL (150-450) Mean Platelet Volume 6.3 FL (6.5-10.1) L Neutrophils (%) (Auto) 81.9 % (45.0-75.0) H Lymphocytes (%) (Auto) 7.7 % (20.0-45.0) L Monocytes (%) (Auto) 8.5 % (1.0-10.0) Eosinophils (%) (Auto) 0.8 % (0.0-3.0) Basophils (%) (Auto) 1.0 % (0.0-2.0) Sodium Level 134 MMOL/L (136-145) L Potassium Level 3.9 MMOL/L (3.5-5.1) Chloride Level 96 MMOL/L (98-107) L Carbon Dioxide Level 30 MMOL/L (21-32) Anion Gap 8 mmol/L (5-15) Blood Urea Nitrogen 43 mg/dL (7-18) H Creatinine 2.3 MG/DL (0.55-1.30) H Estimat Glomerular Filtration Rate 29.4 mL/min (>60) Glucose Level 99 MG/DL (74-106) Calcium Level 8.1 MG/DL (8.5-10.1) L Phosphorus Level 3.0 MG/DL (2.5-4.9) Magnesium Level 1.6 MG/DL (1.8-2.4) L Total Bilirubin 2.1 MG/DL (0.2-1.0) H Direct Bilirubin 0.9 MG/DL (0.0-0.3) H Aspartate Amino Transf (AST/SGOT) 49 U/L (15-37) H Alanine Aminotransferase (ALT/SGPT) 12 U/L (12-78) Alkaline Phosphatase 108 U/L (46-116) Ammonia 15 umol/L (11-32) Total Protein 6.3 G/DL (6.4-8.2) L Albumin 1.4 G/DL (3.4-5.0) L Globulin 4.9 g/dL Albumin/Globulin Ratio 0.3 (1.0-2.7) L Test 11/07/20 11:23 POC Whole Blood Glucose Pending Intake and Output 11/06/20 11/07/20 19:00 07:00 Intake Total 500 ml Output Total 600 ml 500 ml Balance -100 ml -500 ml Intake Oral 500 ml Output Urine Total 250 ml 500 ml Stool Total 350 ml # Bowel Movements 2 Objective Objective General: No acute distress, awake and alert HEENT: NCAT, sclera anicteric, PERRL, EOMI. Neck: Supple, no significant jugular venous distention, Lungs: Nasal canula; Fair inspiratory effort, , no Wheeze or Rales. Heart: Regular rate and rhythm, normal S1/S2, no murmurs Abdomen: soft, nontender, +distended. positive fluid shift, bowel sound present. / Rectal: Refused and deferred. Extremities: No Cyanosis , clubbing or edema. Neuro: A&O x 3, Able to move all extremities Skin: warm, no rash Assessment/Plan Assessment/Plan Assessment/Plan Assessment/Plan Sepsis Acute Hypoxia on BiPAP >> NRB mask >> venturi mask>>nasal canula alcohol abuse Liver Cirrhosis, Fatty liver Massive ascites renal failure DM2 HTN Plan: Cont empiric vanco/Zosyn High volume paracentesis, COVID PCR=Neg F/u BCx GI=Dr Encarnacion Nephrol=Dr Pozo S/P paracentesis 11/02/20 Jered Case MD Nov 07, 2020 12:35
--- NOTE | 2020-11-07 13:24 | Nephrology Progress Note ---
Assessment/Plan Problem List: (1) Renal failure (ARF), acute on chronic (2) Electrolyte imbalance (3) Hypokalemia (4) Cirrhosis (5) DMII (diabetes mellitus, type 2) (6) Anemia (7) HTN (hypertension) Assessment Renal failure most likely acute on chronic Electrolyte imbalances, hypokalemia Sepsis Hepatic encephalopathy, ascites, fatty liver Anemia History of EtOH abuse, history of tobacco abuse, history of drug abuse Diabetes mellitus type 2 Hypertension Lymphopenia, leukocytosis, hypoxia Plan November 07: Labs reviewed. Serum creatinine down to 2.3. Continue to monitor electrolytes. Low magnesium addressed. November 06: Labs reviewed. Serum creatinine 2.5 unchanged. Continue per consultants. November 05: Labs reviewed. Serum creatinine plateauing. Status quo. Electrolyte acceptable. Now on oxygen by cannula. Continue per consultants. November 04 labs reviewed. Patient full code. On Venturi mask. Low potassium addressed. Serum creatinine rising. Continue to monitor renal parameters. Allopurinol initiated November 03: Labs reviewed. Medication list reviewed. Abnormal electrolyte addressed. Continue monitor renal parameters. Continue per consultants. Previously: Trial of 3% saline and albumin bolus Potassium supplement Monitor renal parameters, ammonia, electrolytes ordered Subjective ROS Limited/Unobtainable: No Constitutional: Reports: malaise, weakness Objective Objective Last 24 Hour Vital Signs Date Time Temp Pulse Resp B/P (MAP) Pulse Ox O2 Delivery O2 Flow Rate FiO2 11/07/20 12:00 104 11/07/20 12:00 97.9 105 20 119/72 (88) 97 11/07/20 12:00 Nasal Cannula 3.0 11/07/20 09:40 104 11/07/20 09:21 103 18 99 Nasal Cannula 3.0 32 11/07/20 09:21 99 Nasal Cannula 2.0 28 11/07/20 08:00 97.5 110 20 135/75 (95) 97 11/07/20 08:00 Nasal Cannula 3.0 11/07/20 04:00 100 11/07/20 04:00 Nasal Cannula 3.0 11/07/20 04:00 97.4 104 21 112/64 (80) 95 11/07/20 00:00 Nasal Cannula 3.0 11/07/20 00:00 98.1 95 18 111/62 (78) 97 11/06/20 20:00 98.1 100 21 108/64 (79) 95 11/06/20 20:00 Nasal Cannula 3.0 11/06/20 20:00 Nasal Cannula 3.0 11/06/20 20:00 100 11/06/20 16:00 97.4 104 21 112/64 (80) 95 11/06/20 16:00 Nasal Cannula 3.0 11/06/20 15:38 104 Intake and Output 11/06/20 11/07/20 19:00 07:00 Intake Total 500 ml Output Total 600 ml 500 ml Balance -100 ml -500 ml Intake Oral 500 ml Output Urine Total 250 ml 500 ml Stool Total 350 ml # Bowel Movements 2 Current Medications Medications (Trade) Dose Ordered Sig/Kylah Route PRN Reason Start Time Stop Time Status Last Admin Dose Admin Acetaminophen (Tylenol) 500 mg Q6H PRN ORAL Mild Pain 11/02/20 08:30 12/02/20 08:29 11/07/20 11:50 Acetaminophen (Tylenol) 500 mg Q6H PRN ORAL fever > 100.2 11/02/20 08:45 12/02/20 08:44 Allopurinol (Zyloprim) 200 mg DAILY ORAL 11/04/20 15:00 12/04/20 14:59 11/07/20 09:03 Dextrose (Dextrose 50%) 25 ml Q30M PRN IV Hypoglycemia 11/01/20 18:30 01/30/21 18:29 Dextrose (Dextrose 50%) 50 ml Q30M PRN IV Hypoglycemia 11/01/20 18:30 01/30/21 18:29 Folic Acid (Folate) 3 mg DAILY ORAL 11/03/20 13:15 12/03/20 13:14 11/07/20 09:03 Heparin Sodium (Porcine) (Heparin 5000 units/ml) 5,000 units EVERY 12 HOURS SUBQ 11/01/20 21:00 12/16/20 20:59 11/07/20 09:04 Insulin Aspart (NovoLOG) BEFORE MEALS AND HS SUBQ 11/01/20 21:00 01/30/21 20:59 11/07/20 11:25 Lactulose (Cephulac) 20 gm EVERY 12 HOURS ORAL 11/06/20 21:00 12/06/20 08:59 11/07/20 09:03 Midodrine (Pro-Amatine) 10 mg Q8HR ORAL 11/02/20 14:00 01/31/21 13:59 11/07/20 13:19 Pantoprazole (Protonix) 40 mg EVERY 12 HOURS ORAL 11/02/20 21:00 12/02/20 20:59 11/07/20 09:03 Piperacillin Sod/ Tazobactam Sod 3.375 gm/Sodium Chloride 110 ml @ 27.5 mls/hr EVERY 8 HOURS IVPB 11/01/20 22:00 11/10/20 23:59 11/07/20 13:19 Potassium Chloride (K-Dur) 40 meq EVERY 12 HOURS ORAL 11/06/20 21:00 02/02/21 17:59 11/07/20 09:04 Rifaximin (Xifaxan) 550 mg EVERY 12 HOURS ORAL 11/02/20 21:00 11/09/20 20:59 11/07/20 09:03 Laboratory Tests 11/06/20 16:17: POC Whole Blood Glucose 130H 11/06/20 20:54: POC Whole Blood Glucose 146H 11/07/20 03:05: White Blood Count 14.9H, Red Blood Count 2.60L, Hemoglobin 9.0L, Hematocrit 26.9L, Mean Corpuscular Volume 103H, Mean Corpuscular Hemoglobin 34.7H, Mean Corpuscular Hemoglobin Concent 33.6, Red Cell Distribution Width 18.4H, Platelet Count 162, Mean Platelet Volume 6.3L, Neutrophils (%) (Auto) 81.9H, Lymphocytes (%) (Auto) 7.7L, Monocytes (%) (Auto) 8.5, Eosinophils (%) (Auto) 0.8, Basophils (%) (Auto) 1.0, Sodium Level 134L, Potassium Level 3.9, Chloride Level 96L, Carbon Dioxide Level 30, Anion Gap 8, Blood Urea Nitrogen 43H, Creatinine 2.3H, Estimat Glomerular Filtration Rate 29.4, Glucose Level 99, Calcium Level 8.1L, Phosphorus Level 3.0, Magnesium Level 1.6L, Total Bilirubin 2.1H, Direct Bilirubin 0.9H, Aspartate Amino Transf (AST/SGOT) 49H, Alanine Aminotransferase (ALT/SGPT) 12, Alkaline Phosphatase 108, Ammonia 15, Total Protein 6.3L, Albumin 1.4L, Globulin 4.9, Albumin/Globulin Ratio 0.3L 2/3/21 05:01: POC Whole Blood Glucose 97 11/07/20 11:23: POC Whole Blood Glucose [Pending] Height (Feet): 6 Height (Inches): 1.00 Weight (Pounds): 200 General Appearance: no apparent distress, lethargic Cardiovascular: tachycardia Respiratory/Chest: decreased breath sounds Abdomen: distended Kalin Pozo MD Nov 07, 2020 13:24
--- NOTE | 2020-11-07 15:35 | NUR ---
CASE MANAGEMENT:REVIEW 11/07/20 SI: SEPSIS. HYPOXIA. ETOH ABUSE. ASCITES S/P PARACENTESIS~ 10.2 L REMOVED 97.5 110 20 135/75 97% ON 3L/NC WBC+14.9 BUN+43 CR=2.3 IS: IV ZOSYN Q8HRS K-DUR PO BID ALLOPURINOL PO QD FOLATE PO QD PROTONIX PO Q12 RIFAXIMIN PO Q12 MIDODRINE PO Q8HRS LACTULOSE PO Q12 HEPARIN SQ Q12 : STEP DOWN UNIT DCP: FROM HOME...
[2020-11-07 16:00] VITALS: BP 102/56
--- NOTE | 2020-11-07 16:21 | NUR ---
NURSE NOTES: Bed bath given. Kept dry, clean and comfortable.
--- NOTE | 2020-11-07 19:04 | NUR ---
NURSE NOTES: Received report from ROXI Jones. Endorsed plan of care. Addendum: 11/07/20 at 1918 by GAY WELLS RN wrong entry
--- NOTE | 2020-11-07 19:05 | NUR ---
NURSE NOTES: Report given to ROXI Jones. Endorsed plan of care.
--- NOTE | 2020-11-07 19:39 | NUR ---
NURSE NOTES: Report received from ROXI Moreno. Observed pt lying in the bed, A/O x3-4. ST noted with HR of 110s. On NC 4L, saturating at 95%. Abd distended noted. F/C intact. Rectal tube intact. IV on R FA 22G. L FA 20G noted. Bed in the lowest position. Side rails up x3. Will continue to monitor.
[2020-11-07 20:00] VITALS: BP 107/67
[2020-11-08] VITALS: BP 113/74
--- NOTE | 2020-11-08 00:16 | NUR ---
NURSE NOTES: No acute distress noted at this time. ST noted, HR of 110s. Tolerating oxygen 4L NC, saturating at 96%. Bed bath given. Reposition done. Hydration offered. No signs of difficulty of swallowing noted. Rectal tube fixed, intact. urine output of 130 cc noted, light anirudh urine. Call light within reach. Bed alarm on. Will continue to monitor.
--- NOTE | 2020-11-08 01:00 | NUR ---
NURSE NOTES: Pt complains of pain at amando area, per pt pain is related to f/c. F/C intact, draining well, no blood noted. PRN med given. will continue to monitor.
[2020-11-08 04:00] VITALS: BP 109/76
--- NOTE | 2020-11-08 04:00 | NUR ---
NURSE NOTES: No acute distress noted. On 4L NC, no sob noted. Noted redness around scrotum area, chemical related, applied triad. Reposition done. Will continue to monitor.
[2020-11-08] MEDS: Piperacillin/Tazobactam 3.375 GM in NS 110 ML IVPB SCH ×3 (05:19→21:19)
[2020-11-08] MEDS: Midodrine 10mg tab ORAL SCH ×4 (05:19→21:33)
[2020-11-08 05:24] LABS: BASOPHILS % (AUTO) 0.5 % (0.0-2.0); EOSINOPHILS % (AUTO) 0.8 % (0.0-3.0); HEMATOCRIT 26.2 % (42.0-52.0); HEMOGLOBIN 8.7 G/DL (14.2-18.0); LYMPHOCYTES % (AUTO) 7.1 % (20.0-45.0); MEAN CORPUSCULAR VOLUME 103 FL (80-99); NEUTROPHILS % (AUTO) 82.5 % (45.0-75.0); PLATELET COUNT 166 K/UL (150-450); RED BLOOD COUNT 2.54 M/UL (4.70-6.10); RED CELL DISTRIBUTION WIDTH 18.6 % (11.6-14.8); WHITE BLOOD COUNT 15.6 K/UL (4.8-10.8)
[2020-11-08 05:48] LABS: ALBUMIN 1.4 G/DL (3.4-5.0); ALBUMIN/GLOBULIN RATIO 0.3 (1.0-2.7); BILIRUBIN,TOTAL 1.8 MG/DL (0.2-1.0); CALCIUM 8.3 MG/DL (8.5-10.1); CREATININE 2.3 MG/DL (0.55-1.30); PHOSPHORUS 3.1 MG/DL (2.5-4.9); POTASSIUM 4.3 MMOL/L (3.5-5.1)
[2020-11-08 05:51] LABS: BILIRUBIN,DIRECT 0.5 MG/DL (0.0-0.3)
[2020-11-08] MEDS: NovoLOG Insulin Flexpen SUBQ SCH ×4 (05:51→21:00)
--- NOTE | 2020-11-08 07:05 | NUR ---
NURSE HAND-OFF REPORT: Important Events on Shift: No acute distress noted. On 4L NC. SR, ST Patient Status: VS stable. Diet: CCHO Pending Orders: [] Pending Results/Labs:[] Pending MD notification:[] Latest Vital Signs: Temperature 97.0 , Pulse 103 , B/P 109 /76 , Respiratory Rate 20 , O2 SAT 97 , Bi-pap, O2 Flow Rate 4.0 . Vital Sign Comment: [] EKG Rhythm: Sinus Tachycardia Rhythm change?: N MD Notified?: - MD Response: Latest Childs Fall Score: 70 Fall Risk: High Risk Safety Measures: Call light Within Reach, Bed Alarm Zone 1, Side Rails Side Rails x3, Bed position Low and Locked. Fall Precautions: Yellow Socks Yellow Gown Door Sign Patient Fall Education Report given to ROXI Stanford.
--- NOTE | 2020-11-08 07:14 | NUR ---
NURSE NOTES: Report received from ROXI Espinoza. Patient remains on bed, awake, responds to questions well, no signs of grimacing or distress noted. On NC 4 L, saturating well. [facility], breakfast tray passed. Patient has a rectal tube, patent, intact, and draining runny stool. On fallon catheter, patent, intact, and draining dark anirudh urine. Has a L AC 30 g IV, patent, intact, and saline locked, and a R W 22 g, patent, intact, and saline locked. HOB elevated, bed remains on lowest position, side rails up, locked, call light within reach. Will continue to be monitor. Will continue plan of care.
[2020-11-08 08:00] VITALS: BP 113/65
[2020-11-08] MEDS: Lactulose 20gm/30ml UDC ORAL SCH (08:45)
[2020-11-08] MEDS: Allopurinol 100mg Tab ORAL SCH (08:46)
[2020-11-08] MEDS: Heparin 5000 units/ml inj SUBQ SCH ×2 (08:48→21:17)
--- NOTE | 2020-11-08 08:53 | Infectious Diseases Prog Note ---
Assessment/Plan 60yo M with: Sepsis Afebrile Hypoxia on BiPAP >> NRB mask >> venti mask Leukocytosis to 14, improving Lymphopenia 11/01 BCx NTD COVID PCR neg CXR: Elevated right hemidiaphragm. Possible right basilar airspace disease and right effusion. CTH: No acute process EtOH abuse Cirrhosis, Fatty liver Masive ascites Elevated AST to 48 Acute hep panel neg 11/01 CT A/P: CIRRHOSIS WITH LARGE AMOUNT OF ASCITES. SPLENIC GRANULOMAS. SLUDGE IN THE GALLBLADDER. SMALL RIGHT PLEURAL EFFUSION WITH COMPRESSIVE ATELECTASIS RIGHT LOWER LOBE. ELEVATED RIGHT HEMIDIAPHRAGM. 11/02 Paracentesis, 10.2L removed 838 RBC, 142 WBC, 2%PMN, 94%Stoddard's Cx - NTD DAVIDE vs CKD, Cr 2.4, improving HIV screen neg PMH: EtOH abuse, stopped drinking in Sep 2020 Fatty liver DM2 HTN Plan: Cont empiric Zosyn #8/10 for possible pna, less likely SBP Trend WBC, overall stable 11/03 SP vanco #2 Monitor CBC/CMP Monitor temp curve, hemodynamics Monitor resp status D/w RN Thank you for this consult. [facility] will continue to follow. Subjective Allergies: Coded Allergies: No Known Allergies (Unverified , 10/02/16) AF NAD on 3L NC WBC stable at 15 Feeling ok, breathing fine, still w/ abd discomfort gerson after eating Abd more distended Objective Last 24 Hour Vital Signs Date Time Temp Pulse Resp B/P (MAP) Pulse Ox O2 Delivery O2 Flow Rate FiO2 11/08/20 07:10 103 20 96 Nasal Cannula 3.0 32 11/08/20 07:10 96 Nasal Cannula 3.0 32 11/08/20 04:00 97.0 95 20 109/76 (87) 97 11/08/20 04:00 103 11/08/20 04:00 Nasal Cannula 4.0 11/08/20 00:00 Nasal Cannula 4.0 11/08/20 00:00 97.0 109 20 113/74 (87) 95 11/07/20 23:27 108 11/07/20 20:00 Nasal Cannula 4.0 11/07/20 20:00 97.0 108 20 107/67 (80) 95 11/07/20 19:24 97 Nasal Cannula 2.0 28 11/07/20 19:24 113 18 97 Nasal Cannula 3.0 32 11/07/20 19:02 109 11/07/20 16:00 Nasal Cannula 3.0 11/07/20 16:00 98.2 109 20 102/56 (71) 94 11/07/20 16:00 104 11/07/20 12:00 104 11/07/20 12:00 97.9 105 20 119/72 (88) 97 11/07/20 12:00 Nasal Cannula 3.0 11/07/20 09:40 104 11/07/20 09:21 103 18 99 Nasal Cannula 3.0 32 11/07/20 09:21 99 Nasal Cannula 2.0 28 Height (Feet): 6 Height (Inches): 1.00 Weight (Pounds): 200 Gen: NAD HEENT: NCAT, EOMI Pulm: BL chest rise Abd: Distended, soft, +fluid wave Ext: No c/c/e Neuro: Awake, interactive Microbiology Date/Time Source Procedure Growth Status 11/06/20 19:00 Indwelling Cath Urine Culture - Preliminary NO GROWTH Resulted Laboratory Tests Test 11/07/20 11:23 11/07/20 16:07 11/07/20 20:13 11/08/20 02:55 POC Whole Blood Glucose Pending Pending 137 MG/DL (74-106) H White Blood Count 15.6 K/UL (4.8-10.8) H Red Blood Count 2.54 M/UL (4.70-6.10) L Hemoglobin 8.7 G/DL (14.2-18.0) L Hematocrit 26.2 % (42.0-52.0) L Mean Corpuscular Volume 103 FL (80-99) H Mean Corpuscular Hemoglobin 34.3 PG (27.0-31.0) H Mean Corpuscular Hemoglobin Concent 33.3 G/DL (32.0-36.0) Red Cell Distribution Width 18.6 % (11.6-14.8) H Platelet Count 166 K/UL (150-450) Mean Platelet Volume 6.2 FL (6.5-10.1) L Neutrophils (%) (Auto) 82.5 % (45.0-75.0) H Lymphocytes (%) (Auto) 7.1 % (20.0-45.0) L Monocytes (%) (Auto) 9.0 % (1.0-10.0) Eosinophils (%) (Auto) 0.8 % (0.0-3.0) Basophils (%) (Auto) 0.5 % (0.0-2.0) Sodium Level 134 MMOL/L (136-145) L Potassium Level 4.3 MMOL/L (3.5-5.1) Chloride Level 97 MMOL/L (98-107) L Carbon Dioxide Level 30 MMOL/L (21-32) Anion Gap 8 mmol/L (5-15) Blood Urea Nitrogen 42 mg/dL (7-18) H Creatinine 2.3 MG/DL (0.55-1.30) H Estimat Glomerular Filtration Rate 29.4 mL/min (>60) Glucose Level 104 MG/DL (74-106) Uric Acid 5.7 MG/DL (2.6-7.2) Calcium Level 8.3 MG/DL (8.5-10.1) L Phosphorus Level 3.1 MG/DL (2.5-4.9) Magnesium Level 1.9 MG/DL (1.8-2.4) Total Bilirubin 1.8 MG/DL (0.2-1.0) H Direct Bilirubin 0.5 MG/DL (0.0-0.3) H Aspartate Amino Transf (AST/SGOT) 66 U/L (15-37) H Alanine Aminotransferase (ALT/SGPT) 14 U/L (12-78) Alkaline Phosphatase 133 U/L (46-116) H Total Protein 6.4 G/DL (6.4-8.2) Albumin 1.4 G/DL (3.4-5.0) L Globulin 5.0 g/dL Albumin/Globulin Ratio 0.3 (1.0-2.7) L Test 11/08/20 05:15 POC Whole Blood Glucose Pending Current Medications Medications (Trade) Dose Ordered Sig/Kylah Route PRN Reason Start Time Stop Time Status Last Admin Dose Admin Acetaminophen (Tylenol) 500 mg Q6H PRN ORAL Mild Pain 11/02/20 08:30 12/02/20 08:29 11/07/20 22:56 Acetaminophen (Tylenol) 500 mg Q6H PRN ORAL fever > 100.2 11/02/20 08:45 12/02/20 08:44 Allopurinol (Zyloprim) 200 mg DAILY ORAL 11/04/20 15:00 12/04/20 14:59 11/08/20 08:46 Dextrose (Dextrose 50%) 25 ml Q30M PRN IV Hypoglycemia 11/01/20 18:30 01/30/21 18:29 Dextrose (Dextrose 50%) 50 ml Q30M PRN IV Hypoglycemia 11/01/20 18:30 01/30/21 18:29 Folic Acid (Folate) 3 mg DAILY ORAL 11/03/20 13:15 12/03/20 13:14 11/08/20 08:46 Heparin Sodium (Porcine) (Heparin 5000 units/ml) 5,000 units EVERY 12 HOURS SUBQ 11/01/20 21:00 12/16/20 20:59 11/08/20 08:48 Insulin Aspart (NovoLOG) BEFORE MEALS AND HS SUBQ 11/01/20 21:00 01/30/21 20:59 11/07/20 16:11 Lactulose (Cephulac) 20 gm EVERY 12 HOURS ORAL 11/06/20 21:00 12/06/20 08:59 11/08/20 08:45 Midodrine (Pro-Amatine) 10 mg Q8HR ORAL 11/02/20 14:00 01/31/21 13:59 11/08/20 05:19 Pantoprazole (Protonix) 40 mg EVERY 12 HOURS ORAL 11/02/20 21:00 12/02/20 20:59 11/08/20 08:46 Piperacillin Sod/ Tazobactam Sod 3.375 gm/Sodium Chloride 110 ml @ 27.5 mls/hr EVERY 8 HOURS IVPB 11/01/20 22:00 11/10/20 23:59 11/08/20 05:19 Potassium Chloride (K-Dur) 40 meq EVERY 12 HOURS ORAL 11/06/20 21:00 02/02/21 17:59 11/08/20 08:45 Rifaximin (Xifaxan) 550 mg EVERY 12 HOURS ORAL 11/02/20 21:00 11/09/20 20:59 11/08/20 08:45 Viviana Casper M.D. Nov 08, 2020 08:53
--- NOTE | 2020-11-08 09:01 | NUR ---
NURSE NOTES: morning medication successfully administered. patient does not complain of any pain or any other issues. currently resting/sleeping. room door and curtains are closed. lights are dimmed. call light within reached and taught to press the button when nurse is needed.
[2020-11-08] MEDS: Acetaminophen 500mg (ES) tab ORAL PRN ×2 (10:16→21:19)
--- NOTE | 2020-11-08 10:31 | NUR ---
CASE MANAGEMENT:REVIEW 11/08/20 SI: SEPSIS. HYPOXIA. ETOH ABUSE. ASCITES S/P PARACENTESIS~ 10.2 L REMOVED 97.5 110 20 135/75 97% ON 3L/NC WBC+15.6 H/H-8.7/26.2 BUN+42 CR+2.3 IS: IV ZOSYN Q8HRS K-DUR PO BID ALLOPURINOL PO QD FOLATE PO QD PROTONIX PO Q12 RIFAXIMIN PO Q12 MIDODRINE PO Q8HRS LACTULOSE PO Q12 HEPARIN SQ Q12 : STEP DOWN UNIT DCP: FROM HOME...
--- NOTE | 2020-11-08 11:03 | Nephrology Progress Note ---
Assessment/Plan Problem List: (1) Renal failure (ARF), acute on chronic (2) Electrolyte imbalance (3) Hypokalemia (4) Cirrhosis (5) DMII (diabetes mellitus, type 2) (6) Anemia (7) HTN (hypertension) Assessment Renal failure most likely acute on chronic Electrolyte imbalances, hypokalemia Sepsis Hepatic encephalopathy, ascites, fatty liver Anemia History of EtOH abuse, history of tobacco abuse, history of drug abuse Diabetes mellitus type 2 Hypertension Lymphopenia, leukocytosis, hypoxia Plan November 08: Labs reviewed. Serum creatinine 2.3 unchanged. Electrolytes within normal limit. Continue per consultants. November 07: Labs reviewed. Serum creatinine down to 2.3. Continue to monitor electrolytes. Low magnesium addressed. November 06: Labs reviewed. Serum creatinine 2.5 unchanged. Continue per consu ltants. November 05: Labs reviewed. Serum creatinine plateauing. Status quo. Electrolyte acceptable. Now on oxygen by cannula. Continue per consultants. November 04 labs reviewed. Patient full code. On Venturi mask. Low potassium addressed. Serum creatinine rising. Continue to monitor renal parameters. Allopurinol initiated November 03: Labs reviewed. Medication list reviewed. Abnormal electrolyte addressed. Continue monitor renal parameters. Continue per consultants. Previously: Trial of 3% saline and albumin bolus Potassium supplement Monitor renal parameters, ammonia, electrolytes ordered Subjective ROS Limited/Unobtainable: No Constitutional: Reports: malaise Objective Objective Last 24 Hour Vital Signs Date Time Temp Pulse Resp B/P (MAP) Pulse Ox O2 Delivery O2 Flow Rate FiO2 11/08/20 08:00 97.7 105 20 113/65 (81) 97 11/08/20 08:00 Nasal Cannula 4.0 11/08/20 07:43 105 11/08/20 07:10 103 20 96 Nasal Cannula 3.0 32 11/08/20 07:10 96 Nasal Cannula 3.0 32 11/08/20 04:00 97.0 95 20 109/76 (87) 97 11/08/20 04:00 103 11/08/20 04:00 Nasal Cannula 4.0 11/08/20 00:00 Nasal Cannula 4.0 11/08/20 00:00 97.0 109 20 113/74 (87) 95 11/07/20 23:27 108 11/07/20 20:00 Nasal Cannula 4.0 11/07/20 20:00 97.0 108 20 107/67 (80) 95 11/07/20 19:24 97 Nasal Cannula 2.0 28 11/07/20 19:24 113 18 97 Nasal Cannula 3.0 32 11/07/20 19:02 109 11/07/20 16:00 Nasal Cannula 3.0 11/07/20 16:00 98.2 109 20 102/56 (71) 94 11/07/20 16:00 104 11/07/20 12:00 104 11/07/20 12:00 97.9 105 20 119/72 (88) 97 11/07/20 12:00 Nasal Cannula 3.0 Intake and Output 11/07/20 11/08/20 19:00 07:00 Intake Total 1000.0 ml 410 ml Output Total 500 ml 200 ml Balance 500.0 ml 210 ml Intake Oral 780 ml 300 ml IV Total 220.0 ml 110 ml Output Urine Total 500 ml 200 ml Current Medications Medications (Trade) Dose Ordered Sig/Kylah Route PRN Reason Start Time Stop Time Status Last Admin Dose Admin Acetaminophen (Tylenol) 500 mg Q6H PRN ORAL Mild Pain 11/02/20 08:30 12/02/20 08:29 11/08/20 10:16 Acetaminophen (Tylenol) 500 mg Q6H PRN ORAL fever > 100.2 11/02/20 08:45 12/02/20 08:44 Allopurinol (Zyloprim) 200 mg DAILY ORAL 11/04/20 15:00 12/04/20 14:59 11/08/20 08:46 Dextrose (Dextrose 50%) 25 ml Q30M PRN IV Hypoglycemia 11/01/20 18:30 01/30/21 18:29 Dextrose (Dextrose 50%) 50 ml Q30M PRN IV Hypoglycemia 11/01/20 18:30 01/30/21 18:29 Folic Acid (Folate) 3 mg DAILY ORAL 11/03/20 13:15 12/03/20 13:14 11/08/20 08:46 Heparin Sodium (Porcine) (Heparin 5000 units/ml) 5,000 units EVERY 12 HOURS SUBQ 11/01/20 21:00 12/16/20 20:59 11/08/20 08:48 Insulin Aspart (NovoLOG) BEFORE MEALS AND HS SUBQ 11/01/20 21:00 01/30/21 20:59 11/07/20 16:11 Lactulose (Cephulac) 20 gm EVERY 12 HOURS ORAL 11/06/20 21:00 12/06/20 08:59 11/08/20 08:45 Midodrine (Pro-Amatine) 10 mg Q8HR ORAL 11/02/20 14:00 01/31/21 13:59 11/08/20 05:19 Pantoprazole (Protonix) 40 mg EVERY 12 HOURS ORAL 11/02/20 21:00 12/02/20 20:59 11/08/20 08:46 Piperacillin Sod/ Tazobactam Sod 3.375 gm/Sodium Chloride 110 ml @ 27.5 mls/hr EVERY 8 HOURS IVPB 11/01/20 22:00 11/10/20 23:59 11/08/20 05:19 Potassium Chloride (K-Dur) 40 meq EVERY 12 HOURS ORAL 11/06/20 21:00 02/02/21 17:59 11/08/20 08:45 Rifaximin (Xifaxan) 550 mg EVERY 12 HOURS ORAL 11/02/20 21:00 11/09/20 20:59 11/08/20 08:45 Laboratory Tests 11/07/20 11:23: POC Whole Blood Glucose [Pending] 11/07/20 16:07: POC Whole Blood Glucose [Pending] 11/07/20 20:13: POC Whole Blood Glucose 137H 11/08/20 02:55: White Blood Count 15.6H, Red Blood Count 2.54L, Hemoglobin 8.7L, Hematocrit 26.2L, Mean Corpuscular Volume 103H, Mean Corpuscular Hemoglobin 34.3H, Mean Corpuscular Hemoglobin Concent 33.3, Red Cell Distribution Width 18.6H, Platelet Count 166, Mean Platelet Volume 6.2L, Neutrophils (%) (Auto) 82.5H, Lymphocytes (%) (Auto) 7.1L, Monocytes (%) (Auto) 9.0, Eosinophils (%) (Auto) 0.8, Basophils (%) (Auto) 0.5, Sodium Level 134L, Potassium Level 4.3, Chloride Level 97L, Carbon Dioxide Level 30, Anion Gap 8, Blood Urea Nitrogen 42H, Creatinine 2.3H, Estimat Glomerular Filtration Rate 29.4, Glucose Level 104, Uric Acid 5.7, Calcium Level 8.3L, Phosphorus Level 3.1, Magnesium Level 1.9, Total Bilirubin 1.8H, Direct Bilirubin 0.5H, Aspartate Amino Transf (AST/SGOT) 66H, Alanine Aminotransferase (ALT/SGPT) 14, Alkaline Phosphatase 133H, Total Protein 6.4, Albumin 1.4L, Globulin 5.0, Albumin/Globulin Ratio 0.3L 11/08/20 05:15: POC Whole Blood Glucose [Pending] Height (Feet): 6 Height (Inches): 1.00 Weight (Pounds): 200 General Appearance: no apparent distress Cardiovascular: tachycardia Respiratory/Chest: decreased breath sounds Abdomen: distended Kalin Pozo MD Nov 08, 2020 11:03
[2020-11-08] MEDS ORDERED: NS 275ml ONE ×2 (11:09→14:15)
[2020-11-08] MEDS ORDERED: Tubing IV Secondary IV ONE ×2 (11:12→14:15)
--- NOTE | 2020-11-08 11:48 | NUR ---
NURSE NOTES: noon novolog not administered. patien's blood sugar within range (per novolog parameter). will be giving patient's lunch tray.
[2020-11-08 12:00] VITALS: BP 104/54
--- NOTE | 2020-11-08 12:52 | General Progress Note ---
Subjective ROS Limited/Unobtainable: No Allergies: Coded Allergies: No Known Allergies (Unverified , 10/02/16) Objective Last 24 Hour Vital Signs Date Time Temp Pulse Resp B/P (MAP) Pulse Ox O2 Delivery O2 Flow Rate FiO2 11/08/20 12:00 Nasal Cannula 4.0 11/08/20 12:00 97.5 102 20 104/54 (71) 97 11/08/20 11:29 101 11/08/20 08:00 97.7 105 20 113/65 (81) 97 11/08/20 08:00 Nasal Cannula 4.0 11/08/20 07:43 105 11/08/20 07:10 103 20 96 Nasal Cannula 3.0 32 11/08/20 07:10 96 Nasal Cannula 3.0 32 11/08/20 04:00 97.0 95 20 109/76 (87) 97 11/08/20 04:00 103 11/08/20 04:00 Nasal Cannula 4.0 11/08/20 00:00 Nasal Cannula 4.0 11/08/20 00:00 97.0 109 20 113/74 (87) 95 11/07/20 23:27 108 11/07/20 20:00 Nasal Cannula 4.0 11/07/20 20:00 97.0 108 20 107/67 (80) 95 11/07/20 19:24 97 Nasal Cannula 2.0 28 11/07/20 19:24 113 18 97 Nasal Cannula 3.0 32 11/07/20 19:02 109 11/07/20 16:00 Nasal Cannula 3.0 11/07/20 16:00 98.2 109 20 102/56 (71) 94 11/07/20 16:00 104 Intake and Output 11/07/20 11/08/20 19:00 07:00 Intake Total 1000.0 ml 410 ml Output Total 500 ml 200 ml Balance 500.0 ml 210 ml Intake Oral 780 ml 300 ml IV Total 220.0 ml 110 ml Output Urine Total 500 ml 200 ml Laboratory Tests 11/07/20 16:07: POC Whole Blood Glucose [Pending] 11/07/20 20:13: POC Whole Blood Glucose 137H 11/08/20 02:55: White Blood Count 15.6H, Red Blood Count 2.54L, Hemoglobin 8.7L, Hematocrit 26.2L, Mean Corpuscular Volume 103H, Mean Corpuscular Hemoglobin 34.3H, Mean Corpuscular Hemoglobin Concent 33.3, Red Cell Distribution Width 18.6H, Platelet Count 166, Mean Platelet Volume 6.2L, Neutrophils (%) (Auto) 82.5H, Lymphocytes (%) (Auto) 7.1L, Monocytes (%) (Auto) 9.0, Eosinophils (%) (Auto) 0.8, Basophils (%) (Auto) 0.5, Sodium Level 134L, Potassium Level 4.3, Chloride Level 97L, Carbon Dioxide Level 30, Anion Gap 8, Blood Urea Nitrogen 42H, Creatinine 2.3H, Estimat Glomerular Filtration Rate 29.4, Glucose Level 104, Uric Acid 5.7, Calcium Level 8.3L, Phosphorus Level 3.1, Magnesium Level 1.9, Total Bilirubin 1.8H, Direct Bilirubin 0.5H, Aspartate Amino Transf (AST/SGOT) 66H, Alanine Aminotransferase (ALT/SGPT) 14, Alkaline Phosphatase 133H, Total Protein 6.4, Albumin 1.4L, Globulin 5.0, Albumin/Globulin Ratio 0.3L 11/08/20 05:15: POC Whole Blood Glucose [Pending] 11/08/20 11:43: POC Whole Blood Glucose [Pending] Height (Feet): 6 Height (Inches): 1.00 Weight (Pounds): 200 General Appearance: no apparent distress EENT: normal ENT inspection Neck: supple Cardiovascular: normal rate Respiratory/Chest: decreased breath sounds Abdomen: normal bowel sounds, non tender, soft Extremities: non-tender Assessment/Plan Problem List: (1) Cirrhosis ICD Codes: K74.60 - Unspecified cirrhosis of liver SNOMED: 94713359 (2) Hepatic encephalopathy ICD Codes: K72.90 - Hepatic failure, unspecified without coma; R65.20 - Severe sepsis without septic shock SNOMED: 01665008 (3) Hypokalemia ICD Codes: E87.6 - Hypokalemia; R65.20 - Severe sepsis without septic shock SNOMED: 04289947 (4) Ascites ICD Codes: R18.8 - Other ascites SNOMED: 105777702 (5) Severe sepsis ICD Codes: A41.9 - Sepsis, unspecified organism; R65.20 - Severe sepsis without septic shock SNOMED: 71557051 (6) AMS (altered mental status) ICD Codes: R41.82 - Altered mental status, unspecified SNOMED: 407671417 Assessment/Plan: Assessment/Plan Problem List: (1) Cirrhosis ICD Codes: K74.60 - Unspecified cirrhosis of liver SNOMED: 48451232 (2) Hepatic encephalopathy ICD Codes: K72.90 - Hepatic failure, unspecified without coma; R65.20 - Severe sepsis without septic shock SNOMED: 80447064 (3) Hypokalemia ICD Codes: E87.6 - Hypokalemia; R65.20 - Severe sepsis without septic shock SNOMED: 59711807 (4) Ascites ICD Codes: R18.8 - Other ascites SNOMED: 235998572 (5) Severe sepsis ICD Codes: A41.9 - Sepsis, unspecified organism; R65.20 - Severe sepsis without septic shock SNOMED: 98228608 (6) AMS (altered mental status) ICD Codes: R41.82 - Altered mental status, unspecified SNOMED: 912932959 Assessment/Plan: po as tolerated Elevate HOB lactulose>> will decrease to 20 BID PPI f/u ammonia level fu hepatitis panel>>> neg Mejia Encarnacion MD Nov 08, 2020 12:51
--- NOTE | 2020-11-08 13:41 | NUR ---
NURSE NOTES: Parul erazo and Midodrine administered. Patient's latest BP is 107/67, okay to administer Midodrine ( Addendum: 11/08/20 at 1420 by Gabi Caldwell RN correction. Midodrine held because patient's blood pressure is above 105 (referred to eMAR).
[2020-11-08 16:00] VITALS: BP 104/69
--- NOTE | 2020-11-08 17:31 | Internal Med Progress Note ---
Subjective Physician Name Ramon Coombs Attending Physician Ramon Coombs MD Current Medications Medications (Trade) Dose Ordered Sig/Kylah Route PRN Reason Start Time Stop Time Status Last Admin Dose Admin Acetaminophen (Tylenol) 500 mg Q6H PRN ORAL Mild Pain 11/02/20 08:30 12/02/20 08:29 11/08/20 10:16 Acetaminophen (Tylenol) 500 mg Q6H PRN ORAL fever > 100.2 11/02/20 08:45 12/02/20 08:44 Allopurinol (Zyloprim) 200 mg DAILY ORAL 11/04/20 15:00 12/04/20 14:59 11/08/20 08:46 Dextrose (Dextrose 50%) 25 ml Q30M PRN IV Hypoglycemia 11/01/20 18:30 01/30/21 18:29 Dextrose (Dextrose 50%) 50 ml Q30M PRN IV Hypoglycemia 11/01/20 18:30 01/30/21 18:29 Folic Acid (Folate) 3 mg DAILY ORAL 11/03/20 13:15 12/03/20 13:14 11/08/20 08:46 Heparin Sodium (Porcine) (Heparin 5000 units/ml) 5,000 units EVERY 12 HOURS SUBQ 11/01/20 21:00 12/16/20 20:59 11/08/20 08:48 Insulin Aspart (NovoLOG) BEFORE MEALS AND HS SUBQ 11/01/20 21:00 01/30/21 20:59 11/07/20 16:11 Lactulose (Cephulac) 20 gm EVERY 12 HOURS ORAL 11/06/20 21:00 12/06/20 08:59 11/08/20 08:45 Midodrine (Pro-Amatine) 10 mg Q8HR ORAL 11/02/20 14:00 01/31/21 13:59 11/08/20 05:19 Pantoprazole (Protonix) 40 mg EVERY 12 HOURS ORAL 11/02/20 21:00 12/02/20 20:59 11/08/20 08:46 Piperacillin Sod/ Tazobactam Sod 3.375 gm/Sodium Chloride 110 ml @ 27.5 mls/hr EVERY 8 HOURS IVPB 11/01/20 22:00 11/10/20 23:59 11/08/20 13:41 Potassium Chloride (K-Dur) 40 meq EVERY 12 HOURS ORAL 11/06/20 21:00 02/02/21 17:59 11/08/20 08:45 Rifaximin (Xifaxan) 550 mg EVERY 12 HOURS ORAL 11/02/20 21:00 11/09/20 20:59 11/08/20 08:45 Allergies: Coded Allergies: No Known Allergies (Unverified , 10/02/16) Subjective awake, alert, responsive, NAD, no acute distress. Objective Last Vital Signs Date Time Temp Pulse Resp B/P (MAP) Pulse Ox O2 Delivery O2 Flow Rate FiO2 11/08/20 16:00 Nasal Cannula 4.0 11/08/20 12:00 97.5 102 20 104/54 (71) 97 11/08/20 07:10 32 Laboratory Tests Test 11/07/20 20:13 11/08/20 02:55 11/08/20 05:15 11/08/20 11:43 POC Whole Blood Glucose 137 MG/DL (74-106) H Pending Pending White Blood Count 15.6 K/UL (4.8-10.8) H Red Blood Count 2.54 M/UL (4.70-6.10) L Hemoglobin 8.7 G/DL (14.2-18.0) L Hematocrit 26.2 % (42.0-52.0) L Mean Corpuscular Volume 103 FL (80-99) H Mean Corpuscular Hemoglobin 34.3 PG (27.0-31.0) H Mean Corpuscular Hemoglobin Concent 33.3 G/DL (32.0-36.0) Red Cell Distribution Width 18.6 % (11.6-14.8) H Platelet Count 166 K/UL (150-450) Mean Platelet Volume 6.2 FL (6.5-10.1) L Neutrophils (%) (Auto) 82.5 % (45.0-75.0) H Lymphocytes (%) (Auto) 7.1 % (20.0-45.0) L Monocytes (%) (Auto) 9.0 % (1.0-10.0) Eosinophils (%) (Auto) 0.8 % (0.0-3.0) Basophils (%) (Auto) 0.5 % (0.0-2.0) Sodium Level 134 MMOL/L (136-145) L Potassium Level 4.3 MMOL/L (3.5-5.1) Chloride Level 97 MMOL/L (98-107) L Carbon Dioxide Level 30 MMOL/L (21-32) Anion Gap 8 mmol/L (5-15) Blood Urea Nitrogen 42 mg/dL (7-18) H Creatinine 2.3 MG/DL (0.55-1.30) H Estimat Glomerular Filtration Rate 29.4 mL/min (>60) Glucose Level 104 MG/DL (74-106) Uric Acid 5.7 MG/DL (2.6-7.2) Calcium Level 8.3 MG/DL (8.5-10.1) L Phosphorus Level 3.1 MG/DL (2.5-4.9) Magnesium Level 1.9 MG/DL (1.8-2.4) Total Bilirubin 1.8 MG/DL (0.2-1.0) H Direct Bilirubin 0.5 MG/DL (0.0-0.3) H Aspartate Amino Transf (AST/SGOT) 66 U/L (15-37) H Alanine Aminotransferase (ALT/SGPT) 14 U/L (12-78) Alkaline Phosphatase 133 U/L (46-116) H Total Protein 6.4 G/DL (6.4-8.2) Albumin 1.4 G/DL (3.4-5.0) L Globulin 5.0 g/dL Albumin/Globulin Ratio 0.3 (1.0-2.7) L Test 11/08/20 17:00 POC Whole Blood Glucose 108 MG/DL (74-106) H Microbiology Date/Time Source Procedure Growth Status 11/06/20 19:00 Indwelling Cath Urine Culture - Final NO GROWTH AFTER 48 HOURS Complete Intake and Output 11/07/20 11/08/20 19:00 07:00 Intake Total 1000.0 ml 410 ml Output Total 500 ml 200 ml Balance 500.0 ml 210 ml Intake Oral 780 ml 300 ml IV Total 220.0 ml 110 ml Output Urine Total 500 ml 200 ml Objective General: No acute distress, awake, alert, Responsive. HEENT: NCAT, sclera anicteric, PERRL, EOMI. Neck: Supple, no significant jugular venous distention, Lungs: Fair inspiratory effort, , no Wheeze or Rales. Heart: Regular rate and rhythm, normal S1/S2, no murmurs Abdomen: soft, nontender, +distended. positive fluid shift, bowel sound present. / Rectal: Refused and deferred. Extremities: No Cyanosis , clubbing or edema. Neuro: A&O x 3, Able to move all extremities Skin: warm, no rash Assessment/Plan Assessment/Plan Sepsis Acute Hypoxia on BiPAP >> resolved alcohol abuse Liver Cirrhosis, Fatty liver Massive ascites DAVIDE vs CKD DM2 HTN Plan: Abx: Zosyn Consider paracentesis, COVID PCR negative F/u BCx monitor laboratory Ramon Coombs MD Nov 08, 2020 17:31
--- NOTE | 2020-11-08 19:49 | NUR ---
NURSE HAND-OFF REPORT: Important Events on Shift: stable Patient Status: Diet: Pending Orders: Pending Results/Labs: Pending MD notification: Latest Vital Signs: Temperature 97.3 , Pulse 110 , B/P 104 /69 , Respiratory Rate 20 , O2 SAT 96 , Bi-pap, O2 Flow Rate 3.0 . Vital Sign Comment: EKG Rhythm: Sinus Tachycardia Rhythm change?: N MD Notified?: - MD Response: Latest Childs Fall Score: 70 Fall Risk: High Risk Safety Measures: Call light Within Reach, Bed Alarm Zone 1, Side Rails Side Rails x3, Bed position Low and Locked. Fall Precautions: Yellow Socks Yellow Gown Door Sign Patient Fall Education Report given to ROXI Estevez.
--- NOTE | 2020-11-08 19:50 | NUR ---
NURSE NOTES: Report received from ROXI Stanford. Upon assessment pt is A/Ox4 responsive to verbal/tactile stimuli. PERRLA. Saturating 98% on 3L N/C. Vitals WNL. Afebrile. Pt c/o pain 5/10 on chest area which does not radiate to extremities. Pt also c/o SOB despite saturating 98%. 12-Lead EKG per Abdoulaye DIANE, shows ST at 105 bpm with no s/s of ST elevation. Placed pt on high fowlers and will monitor. Rectal tube and fallon draining well to gravity. IV on right forearm patent and intact. Bed kept in lowest and locked position. Bed alarm on. Side rails up x3. Call light within reach. Will monitor.
[2020-11-08 20:00] VITALS: BP 126/68
--- NOTE | 2020-11-08 20:30 | NUR ---
NURSE NOTES: Per pt. pain is now in genital area. No c/o chest pain. Tylenol PRN given. Respiratory rate elevated 22 RR. BiPAP PRN administered with RT at bedside. Will monitor.
--- NOTE | 2020-11-08 21:00 | NUR ---
NURSE NOTES: Left message for Dr. Encarnacion in regards to Lactulose since pt Ammonia levels have improved and diarrhea of 200mL during shift. Per ALLISON GREENBERG to d/c Lactulose.
--- NOTE | 2020-11-08 22:43 | NUR ---
NURSE NOTES: BSG 105 mg/dl. No insulin given per sliding scale. Pt requests to discontinue BiPAP and return to nasal cannula. Saturating 97%. Will monitor.
[2020-11-09] VITALS: BP 110/70
--- NOTE | 2020-11-09 01:00 | NUR ---
NURSE NOTES: Patient requesting for ice chips and to sit on side of bed. Bed bath and ice chips provided. Saturating 96% on 3L NC.
[2020-11-09 04:00] VITALS: BP 109/71
--- NOTE | 2020-11-09 04:00 | NUR ---
NURSE NOTES: Pt screaming in bed. When asked if he's in pain, pt responds with, "he's good." No cardiopulmonary distress noted. Assist with repositioning in bed. Will monitor.
[2020-11-09] MEDS: Piperacillin/Tazobactam 3.375 GM in NS 110 ML IVPB SCH ×3 (05:09→21:47)
[2020-11-09] MEDS: Midodrine 10mg tab ORAL SCH ×3 (05:13→21:47)
[2020-11-09] MEDS: NovoLOG Insulin Flexpen SUBQ SCH ×4 (05:30→20:28)
--- NOTE | 2020-11-09 06:14 | NUR ---
NURSE NOTES: Left message for Dr. Pozo in regards to clarifying K-dur orders. Also request to cover Albumin. No cardiopulmonary distress noted. Will monitor.
--- NOTE | 2020-11-09 06:47 | NUR ---
NURSE HAND-OFF REPORT: Important Events on Shift: No changes Patient Status: Stable Diet: CCHO Med Pending Orders: Y Pending Results/Labs: N Pending MD notification: Phil Pozo Latest Vital Signs: Temperature 97.8 , Pulse 101 , B/P 109 /71 , Respiratory Rate 20 , O2 SAT 98 , Bi-pap, O2 Flow Rate 4.0 . Vital Sign Comment: WNL EKG Rhythm: Sinus Tachycardia Rhythm change?: N MD Notified?: - MD Response: Latest Childs Fall Score: 70 Fall Risk: High Risk Safety Measures: Call light Within Reach, Bed Alarm Zone 1, Side Rails Side Rails x3, Bed position Low and Locked. Fall Precautions: Yellow Socks Yellow Gown Door Sign Patient Fall Education Report given to ROXI Agrawal.
--- NOTE | 2020-11-09 07:10 | NUR ---
NURSE NOTES: received patient report from brooklyn boudreaux. patient is on bed awake. not in acute distress. on 3 Li NC,no acute events last night.rectal tube in, fallon, patent and intact. skin is intact, negative covid. abd measurement daily. afebrile. will follow plan of care.
--- NOTE | 2020-11-09 07:28 | Infectious Diseases Prog Note ---
Assessment/Plan 60yo M with: Sepsis Afebrile Hypoxia on BiPAP >> NRB mask >> venti mask Leukocytosis to 14, improving Lymphopenia 11/01 BCx NTD COVID PCR neg CXR: Elevated right hemidiaphragm. Possible right basilar airspace disease and right effusion. CTH: No acute process EtOH abuse Cirrhosis, Fatty liver Masive ascites Elevated AST to 48 Acute hep panel neg 11/01 CT A/P: CIRRHOSIS WITH LARGE AMOUNT OF ASCITES. SPLENIC GRANULOMAS. SLUDGE IN THE GALLBLADDER. SMALL RIGHT PLEURAL EFFUSION WITH COMPRESSIVE ATELECTASIS RIGHT LOWER LOBE. ELEVATED RIGHT HEMIDIAPHRAGM. 11/02 Paracentesis, 10.2L removed 838 RBC, 142 WBC, 2%PMN, 94%Jackson's Cx - NTD DAVIDE vs CKD, Cr 2.4, improving HIV screen neg PMH: EtOH abuse, stopped drinking in Sep 2020 Fatty liver DM2 HTN Plan: Cont empiric Zosyn #9/10 for possible pna, less likely SBP Trend WBC, overall stable 11/03 SP vanco #2 Monitor CBC/CMP Monitor temp curve, hemodynamics Monitor resp status D/w RN Thank you for this consult. [facility] will continue to follow. Subjective Allergies: Coded Allergies: No Known Allergies (Unverified , 10/02/16) AF NAD on 4L NC Feeling about the same, still increased abd discomfort mainly after eating Hernandez removed Objective Last 24 Hour Vital Signs Date Time Temp Pulse Resp B/P (MAP) Pulse Ox O2 Delivery O2 Flow Rate FiO2 11/09/20 04:00 97.8 101 20 109/71 (84) 98 11/09/20 04:00 Nasal Cannula 4.0 11/09/20 04:00 104 11/09/20 00:00 Nasal Cannula 4.0 11/09/20 00:00 101 11/09/20 00:00 98.0 100 20 110/70 (83) 98 11/08/20 21:49 97.4 11/08/20 20:00 106 11/08/20 20:00 Nasal Cannula 4.0 11/08/20 20:00 97.4 102 20 126/68 (87) 100 11/08/20 19:12 96 Nasal Cannula 3.0 32 11/08/20 19:11 110 20 96 Nasal Cannula 3.0 32 11/08/20 16:00 97.3 103 20 104/69 (81) 98 11/08/20 16:00 Nasal Cannula 4.0 11/08/20 15:39 103 11/08/20 12:00 Nasal Cannula 4.0 11/08/20 12:00 97.5 102 20 104/54 (71) 97 11/08/20 11:29 101 11/08/20 08:00 97.7 105 20 113/65 (81) 97 11/08/20 08:00 Nasal Cannula 4.0 11/08/20 07:43 105 Height (Feet): 6 Height (Inches): 1.00 Weight (Pounds): 200 Gen: NAD HEENT: NCAT, EOMI Pulm: BL chest rise Abd: Distended, soft, +fluid wave Ext: No c/c/e Neuro: Awake, interactive Microbiology Date/Time Source Procedure Growth Status 11/06/20 19:00 Indwelling Cath Urine Culture - Final NO GROWTH AFTER 48 HOURS Complete Laboratory Tests Test 11/08/20 11:43 11/08/20 17:00 11/08/20 21:12 11/09/20 05:01 POC Whole Blood Glucose Pending 108 MG/DL (74-106) H 105 MG/DL (74-106) 107 MG/DL (74-106) H Current Medications Medications (Trade) Dose Ordered Sig/Kylah Route PRN Reason Start Time Stop Time Status Last Admin Dose Admin Acetaminophen (Tylenol) 500 mg Q6H PRN ORAL Mild Pain 11/02/20 08:30 12/02/20 08:29 11/08/20 21:19 Acetaminophen (Tylenol) 500 mg Q6H PRN ORAL fever > 100.2 11/02/20 08:45 12/02/20 08:44 Allopurinol (Zyloprim) 200 mg DAILY ORAL 11/04/20 15:00 12/04/20 14:59 11/08/20 08:46 Dextrose (Dextrose 50%) 25 ml Q30M PRN IV Hypoglycemia 11/01/20 18:30 01/30/21 18:29 Dextrose (Dextrose 50%) 50 ml Q30M PRN IV Hypoglycemia 11/01/20 18:30 01/30/21 18:29 Folic Acid (Folate) 3 mg DAILY ORAL 11/03/20 13:15 12/03/20 13:14 11/08/20 08:46 Heparin Sodium (Porcine) (Heparin 5000 units/ml) 5,000 units EVERY 12 HOURS SUBQ 11/01/20 21:00 12/16/20 20:59 11/08/20 21:17 Insulin Aspart (NovoLOG) BEFORE MEALS AND HS SUBQ 11/01/20 21:00 01/30/21 20:59 11/07/20 16:11 Midodrine (Pro-Amatine) 10 mg Q8HR ORAL 11/02/20 14:00 01/31/21 13:59 11/09/20 05:13 Pantoprazole (Protonix) 40 mg EVERY 12 HOURS ORAL 11/02/20 21:00 12/02/20 20:59 11/08/20 21:17 Piperacillin Sod/ Tazobactam Sod 3.375 gm/Sodium Chloride 110 ml @ 27.5 mls/hr EVERY 8 HOURS IVPB 11/01/20 22:00 11/10/20 23:59 11/09/20 05:09 Potassium Chloride (K-Dur) 40 meq EVERY 12 HOURS ORAL 11/06/20 21:00 02/02/21 17:59 11/08/20 21:18 Rifaximin (Xifaxan) 550 mg EVERY 12 HOURS ORAL 11/02/20 21:00 11/09/20 20:59 11/08/20 21:18 Viviana Casper M.D. Nov 09, 2020 07:28
[2020-11-09 08:00] VITALS: BP 109/72
[2020-11-09] MEDS: Acetaminophen 500mg (ES) tab ORAL PRN ×2 (08:25→20:26)
[2020-11-09] MEDS: Allopurinol 100mg Tab ORAL SCH (08:25)
[2020-11-09] MEDS: Heparin 5000 units/ml inj SUBQ SCH ×2 (08:28→20:59)
--- NOTE | 2020-11-09 09:01 | Nephrology Progress Note ---
Assessment/Plan Problem List: (1) Renal failure (ARF), acute on chronic (2) Electrolyte imbalance (3) Hypokalemia (4) Cirrhosis (5) DMII (diabetes mellitus, type 2) (6) Anemia (7) HTN (hypertension) Assessment Renal failure most likely acute on chronic Electrolyte imbalances, hypokalemia Sepsis Hepatic encephalopathy, ascites, fatty liver Anemia History of EtOH abuse, history of tobacco abuse, history of drug abuse Diabetes mellitus type 2 Hypertension Lymphopenia, leukocytosis, hypoxia Plan November 09: No CHEM panel drawn today. Will DC Hernandez due to pain in the urethra. We will continue to monitor renal parameters. Continue per consultants. November 08: Labs reviewed. Serum creatinine 2.3 unchanged. Electrolytes within normal limit. Continue per consultants. November 07: Labs reviewed. Serum creatinine down to 2.3. Continue to monitor electrolytes. Low magnesium addressed. November 06: Labs reviewed. Serum creatinine 2.5 unchanged. Continue per consultants. November 05: Labs reviewed. Serum creatinine plateauing. Status quo. Electrolyte acceptable. Now on oxygen by cannula. Continue per consultants. November 04 labs reviewed. Patient full code. On Venturi mask. Low potassium addressed. Serum creatinine rising. Continue to monitor renal parameters. Allopurinol initiated November 03: Labs reviewed. Medication list reviewed. Abnormal electrolyte addressed. Continue monitor renal parameters. Continue per consultants. Previously: Trial of 3% saline and albumin bolus Potassium supplement Monitor renal parameters, ammonia, electrolytes ordered Subjective ROS Limited/Unobtainable: No Constitutional: Reports: malaise, other - Complain of pain at urethra Objective Objective Last 24 Hour Vital Signs Date Time Temp Pulse Resp B/P (MAP) Pulse Ox O2 Delivery O2 Flow Rate FiO2 11/09/20 08:00 97.7 101 19 109/72 (84) 97 11/09/20 04:00 97.8 101 20 109/71 (84) 98 11/09/20 04:00 Nasal Cannula 4.0 11/09/20 04:00 104 11/09/20 00:00 Nasal Cannula 4.0 11/09/20 00:00 101 11/09/20 00:00 98.0 100 20 110/70 (83) 98 11/08/20 21:49 97.4 11/08/20 20:00 106 11/08/20 20:00 Nasal Cannula 4.0 11/08/20 20:00 97.4 102 20 126/68 (87) 100 11/08/20 19:12 96 Nasal Cannula 3.0 32 11/08/20 19:11 110 20 96 Nasal Cannula 3.0 32 11/08/20 16:00 97.3 103 20 104/69 (81) 98 11/08/20 16:00 Nasal Cannula 4.0 11/08/20 15:39 103 11/08/20 12:00 Nasal Cannula 4.0 11/08/20 12:00 97.5 102 20 104/54 (71) 97 11/08/20 11:29 101 Intake and Output 11/08/20 11/09/20 19:00 07:00 Intake Total 410.0 ml 334.275 ml Output Total 350 ml 600 ml Balance 60.0 ml -265.725 ml Intake Oral 300 ml 150 ml IV Total 110.0 ml 184.275 ml Output Urine Total 350 ml 400 ml Stool Total 200 ml Current Medications Medications (Trade) Dose Ordered Sig/Kylah Route PRN Reason Start Time Stop Time Status Last Admin Dose Admin Acetaminophen (Tylenol) 500 mg Q6H PRN ORAL Mild Pain 11/02/20 08:30 12/02/20 08:29 11/09/20 08:25 Acetaminophen (Tylenol) 500 mg Q6H PRN ORAL fever > 100.2 11/02/20 08:45 12/02/20 08:44 Allopurinol (Zyloprim) 200 mg DAILY ORAL 11/04/20 15:00 12/04/20 14:59 11/09/20 08:25 Dextrose (Dextrose 50%) 25 ml Q30M PRN IV Hypoglycemia 11/01/20 18:30 01/30/21 18:29 Dextrose (Dextrose 50%) 50 ml Q30M PRN IV Hypoglycemia 11/01/20 18:30 01/30/21 18:29 Folic Acid (Folate) 3 mg DAILY ORAL 11/03/20 13:15 12/03/20 13:14 11/09/20 08:26 Heparin Sodium (Porcine) (Heparin 5000 units/ml) 5,000 units EVERY 12 HOURS SUBQ 11/01/20 21:00 12/16/20 20:59 11/09/20 08:28 Insulin Aspart (NovoLOG) BEFORE MEALS AND HS SUBQ 11/01/20 21:00 01/30/21 20:59 11/07/20 16:11 Midodrine (Pro-Amatine) 10 mg Q8HR ORAL 11/02/20 14:00 01/31/21 13:59 11/09/20 05:13 Pantoprazole (Protonix) 40 mg EVERY 12 HOURS ORAL 11/02/20 21:00 12/02/20 20:59 11/09/20 08:26 Piperacillin Sod/ Tazobactam Sod 3.375 gm/Sodium Chloride 110 ml @ 27.5 mls/hr EVERY 8 HOURS IVPB 11/01/20 22:00 11/10/20 23:59 11/09/20 05:09 Potassium Chloride (K-Dur) 40 meq EVERY 12 HOURS ORAL 11/06/20 21:00 02/02/21 17:59 11/08/20 21:18 Rifaximin (Xifaxan) 550 mg EVERY 12 HOURS ORAL 11/02/20 21:00 11/09/20 20:59 11/09/20 08:26 Laboratory Tests 11/08/20 11:43: POC Whole Blood Glucose [Pending] 11/08/20 17:00: POC Whole Blood Glucose 108H 11/08/20 21:12: POC Whole Blood Glucose 105 11/09/20 05:01: POC Whole Blood Glucose 107H Height (Feet): 6 Height (Inches): 1.00 Weight (Pounds): 200 General Appearance: no apparent distress Cardiovascular: tachycardia Respiratory/Chest: decreased breath sounds Abdomen: distended Kalin Pozo MD Nov 09, 2020 09:01
[2020-11-09 12:00] VITALS: BP 119/66
--- NOTE | 2020-11-09 12:43 | General Progress Note ---
Subjective ROS Limited/Unobtainable: No Allergies: Coded Allergies: No Known Allergies (Unverified , 10/02/16) Objective Last 24 Hour Vital Signs Date Time Temp Pulse Resp B/P (MAP) Pulse Ox O2 Delivery O2 Flow Rate FiO2 11/09/20 12:00 97.5 96 18 119/66 (83) 97 11/09/20 12:00 Nasal Cannula 3.0 11/09/20 08:00 97.7 101 19 109/72 (84) 97 11/09/20 08:00 Nasal Cannula 3.0 11/09/20 07:45 112 11/09/20 07:00 107 18 97 Nasal Cannula 3.0 32 11/09/20 07:00 97 Nasal Cannula 3.0 32 11/09/20 04:00 97.8 101 20 109/71 (84) 98 11/09/20 04:00 Nasal Cannula 4.0 11/09/20 04:00 104 11/09/20 00:00 Nasal Cannula 4.0 11/09/20 00:00 101 11/09/20 00:00 98.0 100 20 110/70 (83) 98 11/08/20 21:49 97.4 11/08/20 20:00 106 11/08/20 20:00 Nasal Cannula 4.0 11/08/20 20:00 97.4 102 20 126/68 (87) 100 11/08/20 19:12 96 Nasal Cannula 3.0 32 11/08/20 19:11 110 20 96 Nasal Cannula 3.0 32 11/08/20 16:00 97.3 103 20 104/69 (81) 98 11/08/20 16:00 Nasal Cannula 4.0 11/08/20 15:39 103 Intake and Output 11/08/20 11/09/20 19:00 07:00 Intake Total 410.0 ml 334.275 ml Output Total 350 ml 600 ml Balance 60.0 ml -265.725 ml Intake Oral 300 ml 150 ml IV Total 110.0 ml 184.275 ml Output Urine Total 350 ml 400 ml Stool Total 200 ml Laboratory Tests 11/08/20 17:00: POC Whole Blood Glucose 108H 11/08/20 21:12: POC Whole Blood Glucose 105 11/09/20 05:01: POC Whole Blood Glucose 107H 11/09/20 11:26: POC Whole Blood Glucose 132H Height (Feet): 6 Height (Inches): 1.00 Weight (Pounds): 200 General Appearance: no apparent distress EENT: normal ENT inspection Neck: supple Cardiovascular: normal rate Respiratory/Chest: decreased breath sounds Abdomen: normal bowel sounds, non tender, soft Extremities: non-tender Assessment/Plan Problem List: (1) Cirrhosis ICD Codes: K74.60 - Unspecified cirrhosis of liver SNOMED: 00567152 (2) Hepatic encephalopathy ICD Codes: K72.90 - Hepatic failure, unspecified without coma; R65.20 - Severe sepsis without septic shock SNOMED: 24405111 (3) Hypokalemia ICD Codes: E87.6 - Hypokalemia; R65.20 - Severe sepsis without septic shock SNOMED: 15750682 (4) Ascites ICD Codes: R18.8 - Other ascites SNOMED: 740835710 (5) Severe sepsis ICD Codes: A41.9 - Sepsis, unspecified organism; R65.20 - Severe sepsis without septic shock SNOMED: 65270680 (6) AMS (altered mental status) ICD Codes: R41.82 - Altered mental status, unspecified SNOMED: 724067759 Assessment/Plan: Assessment/Plan Problem List: (1) Cirrhosis ICD Codes: K74.60 - Unspecified cirrhosis of liver SNOMED: (2) Hepatic encephalopathy ICD Codes: K72.90 - Hepatic failure, unspecified without coma; R65.20 - Severe sepsis without septic shock SNOMED: 22738962 (3) Hypokalemia ICD Codes: E87.6 - Hypokalemia; R65.20 - Severe sepsis without septic shock SNOMED: 96110823 (4) Ascites ICD Codes: R18.8 - Other ascites SNOMED: 581785306 (5) Severe sepsis ICD Codes: A41.9 - Sepsis, unspecified organism; R65.20 - Severe sepsis without septic shock SNOMED: 69418966 (6) AMS (altered mental status) ICD Codes: R41.82 - Altered mental status, unspecified SNOMED: 442652144 Assessment/Plan: po as tolerated Elevate HOB lactulose PPI f/u ammonia level fu hepatitis panel>>> neg Mejia Encarnacion MD Nov 09, 2020 12:43
--- NOTE | 2020-11-09 13:00 | NUR ---
CASE MANAGEMENT:REVIEW 11/09/20 SI: SEPSIS. HYPOXIA. ETOH ABUSE. ASCITES S/P PARACENTESIS~ 10.2 L REMOVED 97.7 101 19 109/72 97% ON 3L/NC IS: IV ZOSYN Q8HRS K-DUR PO BID ALLOPURINOL PO QD FOLATE PO QD PROTONIX PO Q12 RIFAXIMIN PO Q12 MIDODRINE PO Q8HRS HEPARIN SQ Q12 : STEP DOWN UNIT DCP: FROM HOME... PLAN: NEED TO WEAN TO ROOM AIR...WILL NOT BE ABLE TO OBTAIN HOME OXYGEN FOR THIS PATIENT
--- NOTE | 2020-11-09 13:00 | NUR ---
NURSE NOTES: per dr ornelas, no need to put rectal tube in. will continue to monitor.
[2020-11-09 16:00] VITALS: BP 111/73
--- NOTE | 2020-11-09 18:25 | NUR ---
NURSE NOTES: bladder scan done, resulted to 0ml. will continue to monitor.
--- NOTE | 2020-11-09 19:08 | NUR ---
NURSE HAND-OFF REPORT: Important Events on Shift:stable, dcd rectal tube, dcd fc Patient Status: full code Diet: ccho m Pending Orders: [] Pending Results/Labs:[] Pending MD notification:[] Latest Vital Signs: Temperature 97.7 , Pulse 109 , B/P 111 /73 , Respiratory Rate 21 , O2 SAT 98 , Bi-pap, O2 Flow Rate 3.0 . Vital Sign Comment: stable EKG Rhythm: Sinus Tachycardia Rhythm change?: N MD Notified?: - MD Response: Latest Childs Fall Score: 70 Fall Risk: High Risk Safety Measures: Call light Within Reach, Bed Alarm Zone 2, Side Rails Side Rails x2, Bed position Low and Locked. Fall Precautions: Yellow Socks Door Sign Report given to corry boudreaux.
--- NOTE | 2020-11-09 19:23 | Internal Med Progress Note ---
Subjective Physician Name Ramon Coombs Attending Physician Ramon Coombs MD Current Medications Medications (Trade) Dose Ordered Sig/Kylah Route PRN Reason Start Time Stop Time Status Last Admin Dose Admin Acetaminophen (Tylenol) 500 mg Q6H PRN ORAL Mild Pain 11/02/20 08:30 12/02/20 08:29 11/09/20 08:25 Acetaminophen (Tylenol) 500 mg Q6H PRN ORAL fever > 100.2 11/02/20 08:45 12/02/20 08:44 Allopurinol (Zyloprim) 200 mg DAILY ORAL 11/04/20 15:00 12/04/20 14:59 11/09/20 08:25 Dextrose (Dextrose 50%) 25 ml Q30M PRN IV Hypoglycemia 11/01/20 18:30 01/30/21 18:29 Dextrose (Dextrose 50%) 50 ml Q30M PRN IV Hypoglycemia 11/01/20 18:30 01/30/21 18:29 Folic Acid (Folate) 3 mg DAILY ORAL 11/03/20 13:15 12/03/20 13:14 11/09/20 08:26 Heparin Sodium (Porcine) (Heparin 5000 units/ml) 5,000 units EVERY 12 HOURS SUBQ 11/01/20 21:00 12/16/20 20:59 11/09/20 08:28 Insulin Aspart (NovoLOG) BEFORE MEALS AND HS SUBQ 11/01/20 21:00 01/30/21 20:59 11/09/20 16:44 Midodrine (Pro-Amatine) 10 mg Q8HR ORAL 11/02/20 14:00 01/31/21 13:59 11/09/20 05:13 Pantoprazole (Protonix) 40 mg EVERY 12 HOURS ORAL 11/02/20 21:00 12/02/20 20:59 11/09/20 08:26 Piperacillin Sod/ Tazobactam Sod 3.375 gm/Sodium Chloride 110 ml @ 27.5 mls/hr EVERY 8 HOURS IVPB 11/01/20 22:00 11/10/20 23:59 11/09/20 14:10 Potassium Chloride (K-Dur) 40 meq EVERY 12 HOURS ORAL 11/06/20 21:00 02/02/21 17:59 11/08/20 21:18 Rifaximin (Xifaxan) 550 mg EVERY 12 HOURS ORAL 11/02/20 21:00 11/09/20 20:59 11/09/20 08:26 Allergies: Coded Allergies: No Known Allergies (Unverified , 10/02/16) Subjective awake, alert, responsive, NAD, no acute distress. Objective Last Vital Signs Date Time Temp Pulse Resp B/P (MAP) Pulse Ox O2 Delivery O2 Flow Rate FiO2 11/09/20 16:00 Nasal Cannula 3.0 11/09/20 16:00 97.7 109 21 111/73 (86) 98 11/09/20 07:00 32 Laboratory Tests Test 11/08/20 21:12 11/09/20 05:01 11/09/20 11:26 11/09/20 16:36 POC Whole Blood Glucose 105 MG/DL (74-106) 107 MG/DL (74-106) H 132 MG/DL (74-106) H 149 MG/DL (74-106) H Intake and Output 11/08/20 11/09/20 19:00 07:00 Intake Total 410.0 ml 334.275 ml Output Total 350 ml 600 ml Balance 60.0 ml -265.725 ml Intake Oral 300 ml 150 ml IV Total 110.0 ml 184.275 ml Output Urine Total 350 ml 400 ml Stool Total 200 ml Objective General: No acute distress, awake, alert, Responsive. HEENT: NCAT, sclera anicteric, PERRL, EOMI. Neck: Supple, no significant jugular venous distention, Lungs: Fair inspiratory effort, , no Wheeze or Rales. Heart: Regular rate and rhythm, normal S1/S2, no murmurs Abdomen: soft, nontender, +distended. positive fluid shift, bowel sound present. / Rectal: Refused and deferred. Extremities: No Cyanosis , clubbing or edema. Neuro: A&O x 3, Able to move all extremities Skin: warm, no rash Assessment/Plan Assessment/Plan Sepsis Acute Hypoxia on BiPAP >> resolved alcohol abuse Liver Cirrhosis, Fatty liver Massive ascites DAVIDE vs CKD DM2 HTN Plan: Abx: Zosyn Consider paracentesis, COVID PCR negative F/u BCx monitor laboratory Ramon Coombs MD Nov 09, 2020 19:23
--- NOTE | 2020-11-09 19:30 | NUR ---
NURSE NOTES: Received report from RN. patient resting. Patient assessed. Vitals are stable. patient c/o abdominal discomfort. Patient repositioned. RN will give tylenol. patient condom cath draining. RN will continue to monitor.
[2020-11-09 20:00] VITALS: BP 109/72
[2020-11-10] VITALS: BP 110/68
--- NOTE | 2020-11-10 00:25 | NUR ---
NURSE NOTES: Patient vitals stable at this time. Patient restless and try to get comfortable. Rn assisted with repositioning. RN will give Tylenol when available to give. Rn will continue to monitor.
[2020-11-10] MEDS: Acetaminophen 500mg (ES) tab ORAL PRN ×2 (02:54→13:08)
[2020-11-10 04:00] VITALS: BP 98/61
[2020-11-10 05:42] LABS: BASOPHILS % (AUTO) 1.3 % (0.0-2.0); EOSINOPHILS % (AUTO) 1.1 % (0.0-3.0); HEMATOCRIT 25.1 % (42.0-52.0); HEMOGLOBIN 8.3 G/DL (14.2-18.0); LYMPHOCYTES % (AUTO) 7.1 % (20.0-45.0); MEAN CORPUSCULAR VOLUME 104 FL (80-99); MONOCYTES % (AUTO) 9.1 % (1.0-10.0); NEUTROPHILS % (AUTO) 81.4 % (45.0-75.0); PLATELET COUNT 204 K/UL (150-450); RED BLOOD COUNT 2.42 M/UL (4.70-6.10); WHITE BLOOD COUNT 14.4 K/UL (4.8-10.8)
[2020-11-10 06:17] LABS: ALBUMIN 1.4 G/DL (3.4-5.0); ALBUMIN/GLOBULIN RATIO 0.3 (1.0-2.7); BILIRUBIN,TOTAL 1.6 MG/DL (0.2-1.0); CALCIUM 8.1 MG/DL (8.5-10.1); CREATININE 1.9 MG/DL (0.55-1.30); PHOSPHORUS 3.9 MG/DL (2.5-4.9); POTASSIUM 4.1 MMOL/L (3.5-5.1)
[2020-11-10 06:20] LABS: BILIRUBIN,DIRECT 0.8 MG/DL (0.0-0.3)
[2020-11-10] MEDS: Piperacillin/Tazobactam 3.375 GM in NS 110 ML IVPB SCH ×3 (06:25→21:09)
[2020-11-10] MEDS: NovoLOG Insulin Flexpen SUBQ SCH ×4 (06:25→20:40)
[2020-11-10] MEDS: Midodrine 10mg tab ORAL SCH ×3 (06:25→21:10)
--- NOTE | 2020-11-10 07:10 | NUR ---
NURSE NOTES: Received report from ROXI Chew. Patient is AO x3, in bed asleep at this time. Patient on NC 3L, breathing is even and unlabored with no signs of respiratory distress. No pain or discomfort noted at this time. Patient with L wrist 22G, patent and intact. Bed in lowest position, locked with side rails x2 up. Call light within reach.
--- NOTE | 2020-11-10 07:17 | NUR ---
NURSE HAND-OFF REPORT: Important Events on Shift: Patient Status: Diet: Pending Orders: Pending Results/Labs: Pending MD notification: Latest Vital Signs: Temperature 97.7 , Pulse 97 , B/P 98 /61 , Respiratory Rate 20 , O2 SAT 97 , Bi-pap, O2 Flow Rate 3.0 . Vital Sign Comment: EKG Rhythm: Sinus Rhythm Rhythm change?: N MD Notified?: - MD Response: Latest Childs Fall Score: 70 Fall Risk: High Risk Safety Measures: Call light Within Reach, Bed Alarm Zone 2, Side Rails Side Rails x2, Bed position Low and Locked. Fall Precautions: Yellow Socks Door Sign Report given to
[2020-11-10 08:00] VITALS: BP 111/74
[2020-11-10] MEDS: Allopurinol 100mg Tab ORAL SCH (08:37)
[2020-11-10] MEDS: Heparin 5000 units/ml inj SUBQ SCH ×2 (08:39→20:28)
--- NOTE | 2020-11-10 08:40 | General Progress Note ---
Subjective ROS Limited/Unobtainable: No Allergies: Coded Allergies: No Known Allergies (Unverified , 10/02/16) Objective Last 24 Hour Vital Signs Date Time Temp Pulse Resp B/P (MAP) Pulse Ox O2 Delivery O2 Flow Rate FiO2 11/10/20 04:00 97 11/10/20 04:00 Nasal Cannula 3.0 11/10/20 04:00 97.7 100 20 98/61 (73) 97 11/10/20 03:20 97.6 11/10/20 00:00 Nasal Cannula 3.0 11/10/20 00:00 Nasal Cannula 3.0 11/10/20 00:00 99 11/10/20 00:00 97.9 101 18 110/68 (82) 97 11/09/20 20:56 97.7 11/09/20 20:09 96 Nasal Cannula 3.0 32 11/09/20 20:09 106 18 96 Nasal Cannula 3.0 32 11/09/20 20:00 108 11/09/20 20:00 97.9 106 22 109/72 (84) 96 11/09/20 20:00 Nasal Cannula 3.0 11/09/20 16:00 Nasal Cannula 3.0 11/09/20 16:00 97.7 109 21 111/73 (86) 98 11/09/20 15:24 106 11/09/20 12:00 97.5 96 18 119/66 (83) 97 11/09/20 12:00 Nasal Cannula 3.0 11/09/20 11:44 98 Intake and Output 11/09/20 11/10/20 19:00 07:00 Intake Total 392.5 ml 110.0 ml Output Total 150 ml 350 ml Balance 242.5 ml -240.0 ml Intake Oral 200 ml IV Total 192.5 ml 110.0 ml Output Urine Total 150 ml 350 ml # Voids 3 # Bowel Movements 3 5 Laboratory Tests 11/09/20 11:26: POC Whole Blood Glucose 132H 11/09/20 16:36: POC Whole Blood Glucose 149H 11/09/20 20:28: POC Whole Blood Glucose 116H 11/10/20 04:20: White Blood Count 14.4H, Red Blood Count 2.42L, Hemoglobin 8.3L, Hematocrit 25.1L, Mean Corpuscular Volume 104H, Mean Corpuscular Hemoglobin 34.1H, Mean Corpuscular Hemoglobin Concent 32.9, Red Cell Distribution Width 19.0H, Platelet Count 204, Mean Platelet Volume 5.9L, Neutrophils (%) (Auto) 81.4H, Lymphocytes (%) (Auto) 7.1L, Monocytes (%) (Auto) 9.1, Eosinophils (%) (Auto) 1.1, Basophils (%) (Auto) 1.3, Sodium Level 135L, Potassium Level 4.1, Chloride Level 100, Carbon Dioxide Level 30, Anion Gap 5, Blood Urea Nitrogen 37H, Creatinine 1.9H, Estimat Glomerular Filtration Rate 36.6, Glucose Level 95, Uric Acid 4.6, Calcium Level 8.1L, Phosphorus Level 3.9, Magnesium Level 1.7L, Total Bilirubin 1.6H, Direct Bilirubin 0.8H, Aspartate Amino Transf (AST/SGOT) 50H, Alanine Aminotransferase (ALT/SGPT) 14, Alkaline Phosphatase 137H, C-Reactive Protein, Quantitative 11.9H, Pro-B-Type Natriuretic Peptide 1619H, Total Protein 6.5, Albumin 1.4L, Globulin 5.1, Albumin/Globulin Ratio 0.3L 11/10/20 06:04: POC Whole Blood Glucose 97 Height (Feet): 6 Height (Inches): 1.00 Weight (Pounds): 200 General Appearance: no apparent distress EENT: normal ENT inspection Neck: supple Cardiovascular: normal rate Respiratory/Chest: decreased breath sounds Abdomen: normal bowel sounds, non tender, soft Extremities: non-tender Assessment/Plan Problem List: (1) Cirrhosis ICD Codes: K74.60 - Unspecified cirrhosis of liver SNOMED: 22623721 (2) Hepatic encephalopathy ICD Codes: K72.90 - Hepatic failure, unspecified without coma; R65.20 - Severe sepsis without septic shock SNOMED: 09628902 (3) Hypokalemia ICD Codes: E87.6 - Hypokalemia; R65.20 - Severe sepsis without septic shock SNOMED: 49922017 (4) Ascites ICD Codes: R18.8 - Other ascites SNOMED: 780360630 (5) Severe sepsis ICD Codes: A41.9 - Sepsis, unspecified organism; R65.20 - Severe sepsis without septic shock SNOMED: 41648505 (6) AMS (altered mental status) ICD Codes: R41.82 - Altered mental status, unspecified SNOMED: 361183931 Assessment/Plan: Assessment/Plan Problem List: (1) Cirrhosis ICD Codes: K74.60 - Unspecified cirrhosis of liver SNOMED: 67850579 (2) Hepatic encephalopathy ICD Codes: K72.90 - Hepatic failure, unspecified without coma; R65.20 - Severe sepsis without septic shock SNOMED: 28226784 (3) Hypokalemia ICD Codes: E87.6 - Hypokalemia; R65.20 - Severe sepsis without septic shock SNOMED: 04661823 (4) Ascites ICD Codes: R18.8 - Other ascites SNOMED: 281143663 (5) Severe sepsis ICD Codes: A41.9 - Sepsis, unspecified organism; R65.20 - Severe sepsis without septic shock SNOMED: 24958329 (6) AMS (altered mental status) ICD Codes: R41.82 - Altered mental status, unspecified SNOMED: 419454105 Assessment/Plan: po as tolerated Elevate HOB lactulose PPI f/u ammonia level fu hepatitis panel>>> neg Mejia Encarnacion MD Nov 10, 2020 08:40
[2020-11-10 12:00] VITALS: BP 117/64
--- NOTE | 2020-11-10 15:21 | NUR ---
CASE MANAGEMENT:REVIEW 11/10/20 SI: SEPSIS. HYPOXIA. ETOH ABUSE. ASCITES VS: T 97.7 HR 101 RR 19 B/P 117/64 SATS 97% ON 3L/NC LABS: WBC 14.4 NA 135 BUN 37 CR 1.9 CA 8.1 MG 1.7 TBILI 1.6 DBILI 0.8 AST 50 ALP 137 IS: IV ZOSYN Q8H K-DUR PO BID ALLOPURINOL PO QD FOLATE PO QD PROTONIX PO Q12H RIFAXIMIN PO Q12H MIDODRINE PO Q8H HEPARIN SUBQ Q12H : STEP DOWN UNIT DCP: FROM HOME
[2020-11-10 16:00] VITALS: BP 110/70
--- NOTE | 2020-11-10 18:10 | Nephrology Progress Note ---
Assessment/Plan Problem List: (1) Renal failure (ARF), acute on chronic (2) Electrolyte imbalance (3) Hypokalemia (4) Cirrhosis (5) DMII (diabetes mellitus, type 2) (6) Anemia (7) HTN (hypertension) Assessment Renal failure most likely acute on chronic Electrolyte imbalances, hypokalemia Sepsis Hepatic encephalopathy, ascites, fatty liver Anemia History of EtOH abuse, history of tobacco abuse, history of drug abuse Diabetes mellitus type 2 Hypertension Lymphopenia, leukocytosis, hypoxia Plan November 10: Labs reviewed. Serum creatinine lowered to 1.9. Continue to monitor renal parameters. Magnesium supplement ordered. November 09: No CHEM panel drawn today. Will DC Hernandez due to pain in the urethra. We will continue to monitor renal parameters. Continue per consultants. November 08: Labs reviewed. Serum creatinine 2.3 unchanged. Electrolytes within normal limit. Continue per consultants. November 07: Labs reviewed. Serum creatinine down to 2.3. Continue to monitor electrolytes. Low magnesium addressed. November 06: Labs reviewed. Serum creatinine 2.5 unchanged. Continue per consultants. November 05: Labs reviewed. Serum creatinine plateauing. Status quo. Electrolyte acceptable. Now on oxygen by cannula. Continue per consultants. November 04 labs reviewed. Patient full code. On Venturi mask. Low potassium addressed. Serum creatinine rising. Continue to monitor renal parameters. Allopurinol initiated November 03: Labs reviewed. Medication list reviewed. Abnormal electrolyte addressed. Continue monitor renal parameters. Continue per consultants. Previously: Trial of 3% saline and albumin bolus Potassium supplement Monitor renal parameters, ammonia, electrolytes ordered Subjective ROS Limited/Unobtainable: No Constitutional: Reports: malaise, weakness Objective Objective Last 24 Hour Vital Signs Date Time Temp Pulse Resp B/P (MAP) Pulse Ox O2 Delivery O2 Flow Rate FiO2 11/10/20 16:00 98.0 102 20 110/70 (83) 96 11/10/20 16:00 Nasal Cannula 3.0 11/10/20 16:00 102 11/10/20 12:00 Nasal Cannula 3.0 11/10/20 12:00 99 11/10/20 12:00 97.7 101 19 117/64 (81) 97 11/10/20 08:12 112 18 97 Nasal Cannula 3.0 32 11/10/20 08:12 97 Nasal Cannula 3.0 32 11/10/20 08:00 97.9 102 20 111/74 (86) 97 11/10/20 08:00 Nasal Cannula 3.0 11/10/20 08:00 102 11/10/20 04:00 97 11/10/20 04:00 Nasal Cannula 3.0 11/10/20 04:00 97.7 100 20 98/61 (73) 97 11/10/20 03:20 97.6 11/10/20 00:00 Nasal Cannula 3.0 11/10/20 00:00 Nasal Cannula 3.0 11/10/20 00:00 99 11/10/20 00:00 97.9 101 18 110/68 (82) 97 11/09/20 20:56 97.7 11/09/20 20:09 96 Nasal Cannula 3.0 32 11/09/20 20:09 106 18 96 Nasal Cannula 3.0 32 11/09/20 20:00 108 11/09/20 20:00 97.9 106 22 109/72 (84) 96 11/09/20 20:00 Nasal Cannula 3.0 Intake and Output 11/09/20 11/10/20 19:00 07:00 Intake Total 392.5 ml 110.0 ml Output Total 150 ml 350 ml Balance 242.5 ml -240.0 ml Intake Oral 200 ml IV Total 192.5 ml 110.0 ml Output Urine Total 150 ml 350 ml # Voids 3 # Bowel Movements 3 5 Current Medications Medications (Trade) Dose Ordered Sig/Kylah Route PRN Reason Start Time Stop Time Status Last Admin Dose Admin Acetaminophen (Tylenol) 500 mg Q6H PRN ORAL Mild Pain 11/02/20 08:30 12/02/20 08:29 11/10/20 13:08 Acetaminophen (Tylenol) 500 mg Q6H PRN ORAL fever > 100.2 11/02/20 08:45 12/02/20 08:44 Allopurinol (Zyloprim) 200 mg DAILY ORAL 11/04/20 15:00 12/04/20 14:59 11/10/20 08:37 Dextrose (Dextrose 50%) 25 ml Q30M PRN IV Hypoglycemia 11/01/20 18:30 01/30/21 18:29 Dextrose (Dextrose 50%) 50 ml Q30M PRN IV Hypoglycemia 11/01/20 18:30 01/30/21 18:29 Folic Acid (Folate) 3 mg DAILY ORAL 11/03/20 13:15 12/03/20 13:14 11/10/20 08:37 Heparin Sodium (Porcine) (Heparin 5000 units/ml) 5,000 units EVERY 12 HOURS SUBQ 11/01/20 21:00 12/16/20 20:59 11/10/20 08:39 Insulin Aspart (NovoLOG) BEFORE MEALS AND HS SUBQ 11/01/20 21:00 01/30/21 20:59 11/09/20 16:44 Midodrine (Pro-Amatine) 10 mg Q8HR ORAL 11/02/20 14:00 01/31/21 13:59 11/10/20 13:07 Pantoprazole (Protonix) 40 mg EVERY 12 HOURS ORAL 11/02/20 21:00 12/02/20 20:59 11/10/20 08:37 Piperacillin Sod/ Tazobactam Sod 3.375 gm/Sodium Chloride 110 ml @ 27.5 mls/hr EVERY 8 HOURS IVPB 11/01/20 22:00 11/10/20 23:59 11/10/20 13:06 Potassium Chloride (K-Dur) 40 meq EVERY 12 HOURS ORAL 11/06/20 21:00 02/02/21 17:59 11/10/20 08:38 Laboratory Tests 11/09/20 20:28: POC Whole Blood Glucose 116H 11/10/20 04:20: White Blood Count 14.4H, Red Blood Count 2.42L, Hemoglobin 8.3L, Hematocrit 25.1L, Mean Corpuscular Volume 104H, Mean Corpuscular Hemoglobin 34.1H, Mean Corpuscular Hemoglobin Concent 32.9, Red Cell Distribution Width 19.0H, Platelet Count 204, Mean Platelet Volume 5.9L, Neutrophils (%) (Auto) 81.4H, Lymphocytes (%) (Auto) 7.1L, Monocytes (%) (Auto) 9.1, Eosinophils (%) (Auto) 1.1, Basophils (%) (Auto) 1.3, Sodium Level 135L, Potassium Level 4.1, Chloride Level 100, Ca rbon Dioxide Level 30, Anion Gap 5, Blood Urea Nitrogen 37H, Creatinine 1.9H, Estimat Glomerular Filtration Rate 36.6, Glucose Level 95, Uric Acid 4.6, Calcium Level 8.1L, Phosphorus Level 3.9, Magnesium Level 1.7L, Total Bilirubin 1.6H, Direct Bilirubin 0.8H, Aspartate Amino Transf (AST/SGOT) 50H, Alanine Aminotransferase (ALT/SGPT) 14, Alkaline Phosphatase 137H, C-Reactive Protein, Quantitative 11.9H, Pro-B-Type Natriuretic Peptide 1619H, Total Protein 6.5, Albumin 1.4L, Globulin 5.1, Albumin/Globulin Ratio 0.3L 11/10/20 06:04: POC Whole Blood Glucose 97 Height (Feet): 6 Height (Inches): 1.00 Weight (Pounds): 200 General Appearance: no apparent distress Cardiovascular: tachycardia Respiratory/Chest: decreased breath sounds Abdomen: distended Kalin Pozo MD Nov 10, 2020 18:10
--- NOTE | 2020-11-10 18:25 | NUR ---
NURSE NOTES: Jessica DIANE brought patient by bed in stable condition. Alert and oriented x4. On O2@3L via NC. Belonging checked. Wound photo taken and uploaded. IV dressing intact and dry. Bed lowest position and side rails up. Call light within reach. Will continue to monitor.
--- NOTE | 2020-11-10 18:30 | NUR ---
TRANSFER TO FLOOR: Patient transferred to [facility]. Report given to ROXI Esquivel. Belongings and medications given to Patient. Family and or S/O informed of transfer.
--- NOTE | 2020-11-10 19:10 | NUR ---
NURSE NOTES: Received report from ROXI Esquivel. Pt is in a stable condition laying in bed. Call light within reach, bed locked and in lowest position. Pt is able to make his needs known. Will continue to monitor.
--- NOTE | 2020-11-10 19:13 | Internal Med Progress Note ---
Subjective Date of Service: Nov 10, 2020 Physician Name Jered Case Attending Physician Ramon Coombs MD Current Medications Medications (Trade) Dose Ordered Sig/Kylah Route PRN Reason Start Time Stop Time Status Last Admin Dose Admin Acetaminophen (Tylenol) 500 mg Q6H PRN ORAL Mild Pain 11/02/20 08:30 12/02/20 08:29 11/10/20 13:08 Acetaminophen (Tylenol) 500 mg Q6H PRN ORAL fever > 100.2 11/02/20 08:45 12/02/20 08:44 Allopurinol (Zyloprim) 200 mg DAILY ORAL 11/04/20 15:00 12/04/20 14:59 11/10/20 08:37 Dextrose (Dextrose 50%) 25 ml Q30M PRN IV Hypoglycemia 11/01/20 18:30 01/30/21 18:29 Dextrose (Dextrose 50%) 50 ml Q30M PRN IV Hypoglycemia 11/01/20 18:30 01/30/21 18:29 Folic Acid (Folate) 3 mg DAILY ORAL 11/03/20 13:15 12/03/20 13:14 11/10/20 08:37 Heparin Sodium (Porcine) (Heparin 5000 units/ml) 5,000 units EVERY 12 HOURS SUBQ 11/01/20 21:00 12/16/20 20:59 11/10/20 08:39 Insulin Aspart (NovoLOG) BEFORE MEALS AND HS SUBQ 11/01/20 21:00 01/30/21 20:59 11/09/20 16:44 Magnesium Oxide (Mag-Ox 400mg) 400 mg THREE TIMES A DAY ORAL 11/11/20 09:00 12/11/20 08:59 Midodrine (Pro-Amatine) 10 mg Q8HR ORAL 11/02/20 14:00 01/31/21 13:59 11/10/20 13:07 Pantoprazole (Protonix) 40 mg EVERY 12 HOURS ORAL 11/02/20 21:00 12/02/20 20:59 11/10/20 08:37 Piperacillin Sod/ Tazobactam Sod 3.375 gm/Sodium Chloride 110 ml @ 27.5 mls/hr EVERY 8 HOURS IVPB 11/01/20 22:00 11/10/20 23:59 11/10/20 13:06 Allergies: Coded Allergies: No Known Allergies (Unverified , 10/02/16) ROS Limited/Unobtainable: Yes Subjective 60 YO M with history of alcohol dependence admitted with shortness of breath. Now respiratroy failure. Cover for Int Med-DR Coombs. Step down unit. S/P paracentesis 11/02/20 Objective Last Vital Signs Date Time Temp Pulse Resp B/P (MAP) Pulse Ox O2 Delivery O2 Flow Rate FiO2 11/10/20 16:00 98.0 102 20 110/70 (83) 96 11/10/20 16:00 Nasal Cannula 3.0 11/10/20 08:12 32 Laboratory Tests Test 11/09/20 20:28 11/10/20 04:20 11/10/20 06:04 POC Whole Blood Glucose 116 MG/DL (74-106) H 97 MG/DL (74-106) White Blood Count 14.4 K/UL (4.8-10.8) H Red Blood Count 2.42 M/UL (4.70-6.10) L Hemoglobin 8.3 G/DL (14.2-18.0) L Hematocrit 25.1 % (42.0-52.0) L Mean Corpuscular Volume 104 FL (80-99) H Mean Corpuscular Hemoglobin 34.1 PG (27.0-31.0) H Mean Corpuscular Hemoglobin Concent 32.9 G/DL (32.0-36.0) Red Cell Distribution Width 19.0 % (11.6-14.8) H Platelet Count 204 K/UL (150-450) Mean Platelet Volume 5.9 FL (6.5-10.1) L Neutrophils (%) (Auto) 81.4 % (45.0-75.0) H Lymphocytes (%) (Auto) 7.1 % (20.0-45.0) L Monocytes (%) (Auto) 9.1 % (1.0-10.0) Eosinophils (%) (Auto) 1.1 % (0.0-3.0) Basophils (%) (Auto) 1.3 % (0.0-2.0) Sodium Level 135 MMOL/L (136-145) L Potassium Level 4.1 MMOL/L (3.5-5.1) Chloride Level 100 MMOL/L (98-107) Carbon Dioxide Level 30 MMOL/L (21-32) Anion Gap 5 mmol/L (5-15) Blood Urea Nitrogen 37 mg/dL (7-18) H Creatinine 1.9 MG/DL (0.55-1.30) H Estimat Glomerular Filtration Rate 36.6 mL/min (>60) Glucose Level 95 MG/DL (74-106) Uric Acid 4.6 MG/DL (2.6-7.2) Calcium Level 8.1 MG/DL (8.5-10.1) L Phosphorus Level 3.9 MG/DL (2.5-4.9) Magnesium Level 1.7 MG/DL (1.8-2.4) L Total Bilirubin 1.6 MG/DL (0.2-1.0) H Direct Bilirubin 0.8 MG/DL (0.0-0.3) H Aspartate Amino Transf (AST/SGOT) 50 U/L (15-37) H Alanine Aminotransferase (ALT/SGPT) 14 U/L (12-78) Alkaline Phosphatase 137 U/L (46-116) H C-Reactive Protein, Quantitative 11.9 mg/dL (0.00-0.90) H Pro-B-Type Natriuretic Peptide 1619 pg/mL (0-125) H Total Protein 6.5 G/DL (6.4-8.2) Albumin 1.4 G/DL (3.4-5.0) L Globulin 5.1 g/dL Albumin/Globulin Ratio 0.3 (1.0-2.7) L Intake and Output 11/09/20 11/10/20 19:00 07:00 Intake Total 392.5 ml 110.0 ml Output Total 150 ml 350 ml Balance 242.5 ml -240.0 ml Intake Oral 200 ml IV Total 192.5 ml 110.0 ml Output Urine Total 150 ml 350 ml # Voids 3 # Bowel Movements 3 5 Objective Objective General: No acute distress, awake and alert HEENT: NCAT, sclera anicteric, PERRL, EOMI. Neck: Supple, no significant jugular venous distention, Lungs: Nasal canula; Fair inspiratory effort, , no Wheeze or Rales. Heart: Regular rate and rhythm, normal S1/S2, no murmurs Abdomen: soft, nontender, +distended. positive fluid shift, bowel sound present. / Rectal: Refused and deferred. Extremities: No Cyanosis , clubbing or edema. Neuro: A&O x 3, Able to move all extremities Skin: warm, no rash Assessment/Plan Assessment/Plan Assessment/Plan Assessment/Plan Sepsis Acute Hypoxia on BiPAP >> NRB mask >> venturi mask>>nasal canula alcohol abuse Liver Cirrhosis, Fatty liver Massive ascites renal failure DM2 HTN Plan: Cont empiric vanco/Zosyn High volume paracentesis, COVID PCR=Neg F/u BCx GI=Dr Encarnacion Nephrol=Dr Pozo S/P paracentesis 11/02/20 Jered Case MD Nov 10, 2020 19:13
--- NOTE | 2020-11-10 19:16 | NUR ---
NURSE HAND-OFF: Important Events on Shift: Transfer from [facility] Patient Status: Stable Diet: CCHO(M) Pending Orders: N/A Pending Results/Labs:CBC, BMP on 11/11 Pending MD notification:N/A Latest Vital Signs: Temperature 98.0 , Pulse 102 , B/P 110 /70 , Respiratory Rate 20 , O2 SAT 96 , Bi-pap, O2 Flow Rate 3.0 . Vital Sign Comment: Stable Latest Childs Fall Score: 70 Fall Risk: High Risk Safety Measures: Call light Within Reach, Bed Alarm Zone 2, Side Rails Side Rails x2, Bed position Low and Locked. Fall Precautions: Yellow Socks Door Sign Report given to Nazario DIANE. Patient in stable condition.
[2020-11-10 20:00] VITALS: BP 119/75
[2020-11-11] VITALS: BP 111/71
[2020-11-11 04:00] VITALS: BP 126/78
[2020-11-11] MEDS: Midodrine 10mg tab ORAL SCH ×3 (05:54→21:24)
[2020-11-11] MEDS: NovoLOG Insulin Flexpen SUBQ SCH ×4 (05:54→20:42)
--- NOTE | 2020-11-11 07:21 | General Progress Note ---
Subjective ROS Limited/Unobtainable: No Allergies: Coded Allergies: No Known Allergies (Unverified , 10/02/16) Objective Last 24 Hour Vital Signs Date Time Temp Pulse Resp B/P (MAP) Pulse Ox O2 Delivery O2 Flow Rate FiO2 11/11/20 04:00 98.6 108 20 126/78 (94) 95 11/11/20 00:00 98.6 100 22 111/71 (84) 97 11/10/20 20:00 98.1 105 20 119/75 (90) 96 11/10/20 20:00 Nasal Cannula 3.0 11/10/20 16:00 98.0 102 20 110/70 (83) 96 11/10/20 16:00 Nasal Cannula 3.0 11/10/20 16:00 102 11/10/20 12:00 Nasal Cannula 3.0 11/10/20 12:00 99 11/10/20 12:00 97.7 101 19 117/64 (81) 97 11/10/20 08:12 112 18 97 Nasal Cannula 3.0 32 11/10/20 08:12 97 Nasal Cannula 3.0 32 11/10/20 08:00 97.9 102 20 111/74 (86) 97 11/10/20 08:00 Nasal Cannula 3.0 11/10/20 08:00 102 Intake and Output 11/10/20 11/11/20 19:00 07:00 Intake Total 430.0 ml 360 ml Output Total 350 ml 500 ml Balance 80.0 ml -140 ml Intake Oral 320 ml IV Total 110.0 ml Other 360 ml Output Urine Total 350 ml 500 ml # Bowel Movements 4 2 Laboratory Tests 11/10/20 20:38: POC Whole Blood Glucose 89 11/11/20 05:53: POC Whole Blood Glucose 99 Height (Feet): 6 Height (Inches): 1.00 Weight (Pounds): 200 General Appearance: no apparent distress EENT: normal ENT inspection Neck: supple Cardiovascular: normal rate Respiratory/Chest: decreased breath sounds Abdomen: normal bowel sounds, non tender, soft Extremities: non-tender Assessment/Plan Problem List: (1) Cirrhosis ICD Codes: K74.60 - Unspecified cirrhosis of liver SNOMED: 22813613 (2) Hepatic encephalopathy ICD Codes: K72.90 - Hepatic failure, unspecified without coma; R65.20 - Severe sepsis without septic shock SNOMED: 86192048 (3) Hypokalemia ICD Codes: E87.6 - Hypokalemia; R65.20 - Severe sepsis without septic shock SNOMED: 96266912 (4) Ascites ICD Codes: R18.8 - Other ascites SNOMED: 335141237 (5) Severe sepsis ICD Codes: A41.9 - Sepsis, unspecified organism; R65.20 - Severe sepsis without septic shock SNOMED: 41496352 (6) AMS (altered mental status) ICD Codes: R41.82 - Altered mental status, unspecified SNOMED: 455899199 Assessment/Plan: Assessment/Plan Problem List: (1) Cirrhosis ICD Codes: K74.60 - Unspecified cirrhosis of liver SNOMED: 76831979 (2) Hepatic encephalopathy ICD Codes: K72.90 - Hepatic failure, unspecified without coma; R65.20 - Severe sepsis without septic shock SNOMED: 25791890 (3) Hypokalemia ICD Codes: E87.6 - Hypokalemia; R65.20 - Severe sepsis without septic shock SNOMED: 87037224 (4) Ascites ICD Codes: R18.8 - Other ascites SNOMED: 842266698 (5) Severe sepsis ICD Codes: A41.9 - Sepsis, unspecified organism; R65.20 - Severe sepsis without septic shock SNOMED: 69092315 (6) AMS (altered mental status) ICD Codes: R41.82 - Altered mental status, unspecified SNOMED: 831347501 Assessment/Plan: po as tolerated Elevate HOB lactulose PPI f/u ammonia level fu hepatitis panel>>> neg Mejia Encarnacion MD Nov 11, 2020 07:21
--- NOTE | 2020-11-11 07:25 | NUR ---
NURSE HAND-OFF: Important Events on Shift: BMx1, formed Patient Status: calm Diet: ccho medium Pending Orders: Pending Results/Labs: Pending MD notification: Latest Vital Signs: Temperature 98.6 , Pulse 108 , B/P 126 /78 , Respiratory Rate 20 , O2 SAT 95 , Bi-pap, O2 Flow Rate 3.0 . Vital Sign Comment: VSS Latest Childs Fall Score: 70 Fall Risk: High Risk Safety Measures: Call light Within Reach, Bed Alarm Zone 2, Side Rails Side Rails x2, Bed position Low and Locked. Fall Precautions: Yellow Socks Door Sign Report given to ROXI Michele.
[2020-11-11 08:00] VITALS: BP 99/47
--- NOTE | 2020-11-11 08:00 | NUR ---
NURSE NOTES: Patient awake and alert and oriented.Patient has condom catheter in place with yellow urine noted. saline lock in left wrist intact.Patient abdomen large ,no complaint of nausea at this time,eating breakfast.Bed alarm on,call light within reach.
[2020-11-11 09:13] LABS: HEMATOCRIT 26.9 % (42.0-52.0); HEMOGLOBIN 8.8 G/DL (14.2-18.0); MEAN CORPUSCULAR VOLUME 106 FL (80-99); PLATELET COUNT 281 K/UL (150-450); RED BLOOD COUNT 2.54 M/UL (4.70-6.10); RED CELL DISTRIBUTION WIDTH 19.3 % (11.6-14.8); WHITE BLOOD COUNT 15.1 K/UL (4.8-10.8)
[2020-11-11] MEDS: Magnesium Oxide 400mg tab ORAL SCH ×3 (09:29→18:42)
[2020-11-11] MEDS: Allopurinol 100mg Tab ORAL SCH (09:30)
[2020-11-11] MEDS: Acetaminophen 500mg (ES) tab ORAL PRN ×2 (09:30→18:43)
[2020-11-11 09:36] LABS: CALCIUM 8.4 MG/DL (8.5-10.1); CREATININE 1.6 MG/DL (0.55-1.30); POTASSIUM 4.2 MMOL/L (3.5-5.1)
[2020-11-11] MEDS: Heparin 5000 units/ml inj SUBQ SCH ×2 (09:36→20:39)
--- NOTE | 2020-11-11 10:13 | Nephrology Progress Note ---
Assessment/Plan Problem List: (1) Renal failure (ARF), acute on chronic (2) Electrolyte imbalance (3) Hypokalemia (4) Cirrhosis (5) DMII (diabetes mellitus, type 2) (6) Anemia (7) HTN (hypertension) Assessment Renal failure most likely acute on chronic Electrolyte imbalances, hypokalemia Sepsis Hepatic encephalopathy, ascites, fatty liver Anemia History of EtOH abuse, history of tobacco abuse, history of drug abuse Diabetes mellitus type 2 Hypertension Lymphopenia, leukocytosis, hypoxia Plan November 11: Labs reviewed. Serum creatinine 1.6. Stable from renal standpoint reviewed. November 10: Labs reviewed. Serum creatinine lowered to 1.9. Continue to monitor renal parameters. Magnesium supplement ordered. November 09: No CHEM panel drawn today. Will DC Hernandez due to pain in the urethra. We will continue to monitor renal parameters. Continue per consultants. November 08: Labs reviewed. Serum creatinine 2.3 unchanged. Electrolytes within normal limit. Continue per consultants. November 07: Labs reviewed. Serum creatinine down to 2.3. Continue to monitor electrolytes. Low magnesium addressed. November 06: Labs reviewed. Serum creatinine 2.5 unchanged. Continue per consultants. November 05: Labs reviewed. Serum creatinine plateauing. Status quo. Electrolyte acceptable. Now on oxygen by cannula. Continue per consultants. November 04 labs reviewed. Patient full code. On Venturi mask. Low potassium addressed. Serum creatinine rising. Continue to monitor renal parameters. Allopurinol initiated November 03: Labs reviewed. Medication list reviewed. Abnormal electrolyte addressed. Continue monitor renal parameters. Continue per consultants. Previously: Trial of 3% saline and albumin bolus Potassium supplement Monitor renal parameters, ammonia, electrolytes ordered Subjective ROS Limited/Unobtainable: No Constitutional: Reports: malaise, weakness Objective Objective Last 24 Hour Vital Signs Date Time Temp Pulse Resp B/P (MAP) Pulse Ox O2 Delivery O2 Flow Rate FiO2 11/11/20 04:00 98.6 108 20 126/78 (94) 95 11/11/20 00:00 98.6 100 22 111/71 (84) 97 11/10/20 20:00 98.1 105 20 119/75 (90) 96 11/10/20 20:00 Nasal Cannula 3.0 11/10/20 16:00 98.0 102 20 110/70 (83) 96 11/10/20 16:00 Nasal Cannula 3.0 11/10/20 16:00 102 11/10/20 12:00 Nasal Cannula 3.0 11/10/20 12:00 99 11/10/20 12:00 97.7 101 19 117/64 (81) 97 Intake and Output 11/10/20 11/11/20 19:00 07:00 Intake Total 430.0 ml 360 ml Output Total 350 ml 500 ml Balance 80.0 ml -140 ml Intake Oral 320 ml IV Total 110.0 ml Other 360 ml Output Urine Total 350 ml 500 ml # Bowel Movements 4 2 Current Medications Medications (Trade) Dose Ordered Sig/Kylah Route PRN Reason Start Time Stop Time Status Last Admin Dose Admin Acetaminophen (Tylenol) 500 mg Q6H PRN ORAL Mild Pain 11/02/20 08:30 12/02/20 08:29 11/11/20 09:30 Acetaminophen (Tylenol) 500 mg Q6H PRN ORAL fever > 100.2 11/02/20 08:45 12/02/20 08:44 Acetaminophen/ Hydrocodone Bitart ([place] 5/325) 1 tab Q6H PRN ORAL Severe Pain (Pain Scale 7-10) 11/11/20 10:15 11/18/20 10:14 Allopurinol (Zyloprim) 200 mg DAILY ORAL 11/04/20 15:00 12/04/20 14:59 11/11/20 09:30 Dextrose (Dextrose 50%) 25 ml Q30M PRN IV Hypoglycemia 11/01/20 18:30 01/30/21 18:29 Dextrose (Dextrose 50%) 50 ml Q30M PRN IV Hypoglycemia 11/01/20 18:30 01/30/21 18:29 Folic Acid (Folate) 3 mg DAILY ORAL 11/03/20 13:15 12/03/20 13:14 11/11/20 09:29 Heparin Sodium (Porcine) (Heparin 5000 units/ml) 5,000 units EVERY 12 HOURS SUBQ 11/01/20 21:00 12/16/20 20:59 11/11/20 09:36 Insulin Aspart (NovoLOG) BEFORE MEALS AND HS SUBQ 11/01/20 21:00 01/30/21 20:59 11/09/20 16:44 Magnesium Oxide (Mag-Ox 400mg) 400 mg THREE TIMES A DAY ORAL 11/11/20 09:00 12/11/20 08:59 11/11/20 09:29 Midodrine (Pro-Amatine) 10 mg Q8HR ORAL 11/02/20 14:00 01/31/21 13:59 11/10/20 13:07 Pantoprazole (Protonix) 40 mg EVERY 12 HOURS ORAL 11/02/20 21:00 12/02/20 20:59 11/11/20 09:29 Laboratory Tests 11/10/20 20:38: POC Whole Blood Glucose 89 11/11/20 05:53: POC Whole Blood Glucose 99 11/11/20 08:50: White Blood Count 15.1H, Red Blood Count 2.54L, Hemoglobin 8.8L, Hematocrit 26.9L, Mean Corpuscular Volume 106H, Mean Corpuscular Hemoglobin 34.6H, Mean Corpuscular Hemoglobin Concent 32.7, Red Cell Distribution Width 19.3H, Platelet Count 281, Mean Platelet Volume 5.7L, Neutrophils (%) (Auto) , Lymphocytes (%) (Auto) , Monocytes (%) (Auto) , Eosinophils (%) (Auto) , Basophils (%) (Auto) , Differential Total Cells Counted 100, Neutrophils % (Manual) 86H, Lymphocytes % (Manual) 8L, Monocytes % (Manual) 3, Eosinophils % (Manual) 3, Basophils % (Manual) 0, Band Neutrophils 0, Platelet Estimate Adequate, Platelet Morphology Normal, Hypochromasia 1+, Anisocytosis 2+, Macrocytosis 1+, Sodium Level 136, Potassium Level 4.2, Chloride Level 100, Carbon Dioxide Level 28, Anion Gap 8, Blood Urea Nitrogen 32H, Creatinine 1.6H, Estimat Glomerular Filtration Rate 44.6, Glucose Level 134H, Calcium Level 8.4L Height (Feet): 6 Height (Inches): 1.00 Weight (Pounds): 200 General Appearance: no apparent distress Cardiovascular: tachycardia Respiratory/Chest: decreased breath sounds Abdomen: distended Kalin Pozo MD Nov 11, 2020 10:13
--- NOTE | 2020-11-11 10:14 | Infectious Diseases Prog Note ---
Assessment/Plan 60yo M with: Sepsis Afebrile Hypoxia on BiPAP >> NRB mask >> venti mask Leukocytosis to 14, improving Lymphopenia 11/01 BCx NTD COVID PCR neg CXR: Elevated right hemidiaphragm. Possible right basilar airspace disease and right effusion. CTH: No acute process EtOH abuse Cirrhosis, Fatty liver Masive ascites Elevated AST to 48 Acute hep panel neg 11/01 CT A/P: CIRRHOSIS WITH LARGE AMOUNT OF ASCITES. SPLENIC GRANULOMAS. SLUDGE IN THE GALLBLADDER. SMALL RIGHT PLEURAL EFFUSION WITH COMPRESSIVE ATELECTASIS RIGHT LOWER LOBE. ELEVATED RIGHT HEMIDIAPHRAGM. 11/02 Paracentesis, 10.2L removed 838 RBC, 142 WBC, 2%PMN, 94%[place]'s Cx - NTD DAVIDE vs CKD, Cr 2.4, improving HIV screen neg PMH: EtOH abuse, stopped drinking in Sep 2020 Fatty liver DM2 HTN Plan: Stop empiric Zosyn #10/10 for possible pna, less likely SBP Trend WBC, overall stable 11/11 SP Zosyn #10 11/03 SP vanco #2 Monitor CBC/CMP Monitor temp curve, hemodynamics Monitor resp status D/w RN Thank you for this consult. [facility] will continue to follow. Subjective Allergies: Coded Allergies: No Known Allergies (Unverified , 10/02/16) AF NAD on 3L NC >> on exam on RA, says breathing is worse after eating WBC stable at 15 C/o worsening abd distension, wondering when next para will be Objective Last 24 Hour Vital Signs Date Time Temp Pulse Resp B/P (MAP) Pulse Ox O2 Delivery O2 Flow Rate FiO2 11/11/20 04:00 98.6 108 20 126/78 (94) 95 11/11/20 00:00 98.6 100 22 111/71 (84) 97 11/10/20 20:00 98.1 105 20 119/75 (90) 96 11/10/20 20:00 Nasal Cannula 3.0 11/10/20 16:00 98.0 102 20 110/70 (83) 96 11/10/20 16:00 Nasal Cannula 3.0 11/10/20 16:00 102 11/10/20 12:00 Nasal Cannula 3.0 11/10/20 12:00 99 11/10/20 12:00 97.7 101 19 117/64 (81) 97 Height (Feet): 6 Height (Inches): 1.00 Weight (Pounds): 200 Gen: NAD HEENT: NCAT, EOMI Pulm: BL chest rise Abd: Distended, soft, +fluid wave Ext: No c/c/e Neuro: Awake, interactive Laboratory Tests Test 11/10/20 20:38 11/11/20 05:53 11/11/20 08:50 POC Whole Blood Glucose 89 MG/DL (74-106) 99 MG/DL (74-106) White Blood Count 15.1 K/UL (4.8-10.8) H Red Blood Count 2.54 M/UL (4.70-6.10) L Hemoglobin 8.8 G/DL (14.2-18.0) L Hematocrit 26.9 % (42.0-52.0) L Mean Corpuscular Volume 106 FL (80-99) H Mean Corpuscular Hemoglobin 34.6 PG (27.0-31.0) H Mean Corpuscular Hemoglobin Concent 32.7 G/DL (32.0-36.0) Red Cell Distribution Width 19.3 % (11.6-14.8) H Platelet Count 281 K/UL (150-450) Mean Platelet Volume 5.7 FL (6.5-10.1) L Neutrophils (%) (Auto) % (45.0-75.0) Lymphocytes (%) (Auto) % (20.0-45.0) Monocytes (%) (Auto) % (1.0-10.0) Eosinophils (%) (Auto) % (0.0-3.0) Basophils (%) (Auto) % (0.0-2.0) Differential Total Cells Counted 100 Neutrophils % (Manual) 86 % (45-75) H Lymphocytes % (Manual) 8 % (20-45) L Monocytes % (Manual) 3 % (1-10) Eosinophils % (Manual) 3 % (0-3) Basophils % (Manual) 0 % (0-2) Band Neutrophils 0 % (0-8) Platelet Estimate Adequate Platelet Morphology Normal Hypochromasia 1+ Anisocytosis 2+ Macrocytosis 1+ Sodium Level 136 MMOL/L (136-145) Potassium Level 4.2 MMOL/L (3.5-5.1) Chloride Level 100 MMOL/L (98-107) Carbon Dioxide Level 28 MMOL/L (21-32) Anion Gap 8 mmol/L (5-15) Blood Urea Nitrogen 32 mg/dL (7-18) H Creatinine 1.6 MG/DL (0.55-1.30) H Estimat Glomerular Filtration Rate 44.6 mL/min (>60) Glucose Level 134 MG/DL (74-106) H Calcium Level 8.4 MG/DL (8.5-10.1) L Current Medications Medications (Trade) Dose Ordered Sig/Kylah Route PRN Reason Start Time Stop Time Status Last Admin Dose Admin Acetaminophen (Tylenol) 500 mg Q6H PRN ORAL Mild Pain 11/02/20 08:30 12/02/20 08:29 11/11/20 09:30 Acetaminophen (Tylenol) 500 mg Q6H PRN ORAL fever > 100.2 11/02/20 08:45 12/02/20 08:44 Allopurinol (Zyloprim) 200 mg DAILY ORAL 11/04/20 15:00 12/04/20 14:59 11/11/20 09:30 Dextrose (Dextrose 50%) 25 ml Q30M PRN IV Hypoglycemia 11/01/20 18:30 01/30/21 18:29 Dextrose (Dextrose 50%) 50 ml Q30M PRN IV Hypoglycemia 11/01/20 18:30 01/30/21 18:29 Folic Acid (Folate) 3 mg DAILY ORAL 11/03/20 13:15 12/03/20 13:14 11/11/20 09:29 Heparin Sodium (Porcine) (Heparin 5000 units/ml) 5,000 units EVERY 12 HOURS SUBQ 11/01/20 21:00 12/16/20 20:59 11/11/20 09:36 Insulin Aspart (NovoLOG) BEFORE MEALS AND HS SUBQ 11/01/20 21:00 01/30/21 20:59 11/09/20 16:44 Magnesium Oxide (Mag-Ox 400mg) 400 mg THREE TIMES A DAY ORAL 11/11/20 09:00 12/11/20 08:59 11/11/20 09:29 Midodrine (Pro-Amatine) 10 mg Q8HR ORAL 11/02/20 14:00 01/31/21 13:59 11/10/20 13:07 Pantoprazole (Protonix) 40 mg EVERY 12 HOURS ORAL 11/02/20 21:00 12/02/20 20:59 11/11/20 09:29 Viviana Casper M.D. Nov 11, 2020 10:14
[2020-11-11 12:00] VITALS: BP 112/71
[2020-11-11] MEDS: HYDROcodone/Acetamin 5/325 tab ORAL PRN (13:06)
--- NOTE | 2020-11-11 15:34 | Internal Med Progress Note ---
Subjective Date of Service: Nov 11, 2020 Physician Name Jered Case Attending Physician Ramon Coombs MD Current Medications Medications (Trade) Dose Ordered Sig/Kylah Route PRN Reason Start Time Stop Time Status Last Admin Dose Admin Acetaminophen (Tylenol) 500 mg Q6H PRN ORAL Mild Pain 11/02/20 08:30 12/02/20 08:29 11/11/20 09:30 Acetaminophen (Tylenol) 500 mg Q6H PRN ORAL fever > 100.2 11/02/20 08:45 12/02/20 08:44 Acetaminophen/ Hydrocodone Bitart ([place] 5/325) 1 tab Q6H PRN ORAL Severe Pain (Pain Scale 7-10) 11/11/20 10:15 11/18/20 10:14 11/11/20 13:06 Allopurinol (Zyloprim) 200 mg DAILY ORAL 11/04/20 15:00 12/04/20 14:59 11/11/20 09:30 Dextrose (Dextrose 50%) 25 ml Q30M PRN IV Hypoglycemia 11/01/20 18:30 01/30/21 18:29 Dextrose (Dextrose 50%) 50 ml Q30M PRN IV Hypoglycemia 11/01/20 18:30 01/30/21 18:29 Folic Acid (Folate) 3 mg DAILY ORAL 11/03/20 13:15 12/03/20 13:14 11/11/20 09:29 Heparin Sodium (Porcine) (Heparin 5000 units/ml) 5,000 units EVERY 12 HOURS SUBQ 11/01/20 21:00 12/16/20 20:59 11/11/20 09:36 Insulin Aspart (NovoLOG) BEFORE MEALS AND HS SUBQ 11/01/20 21:00 01/30/21 20:59 11/09/20 16:44 Magnesium Oxide (Mag-Ox 400mg) 400 mg THREE TIMES A DAY ORAL 11/11/20 09:00 12/11/20 08:59 11/11/20 14:17 Midodrine (Pro-Amatine) 10 mg Q8HR ORAL 11/02/20 14:00 01/31/21 13:59 11/10/20 13:07 Pantoprazole (Protonix) 40 mg EVERY 12 HOURS ORAL 11/02/20 21:00 12/02/20 20:59 11/11/20 09:29 Allergies: Coded Allergies: No Known Allergies (Unverified , 10/02/16) ROS Limited/Unobtainable: Yes Subjective 60 YO M with history of alcohol dependence admitted with shortness of breath. Now respiratroy failure. Cover for Int Med-DR Coombs. S/P paracentesis 11/02/20 Objective Last Vital Signs Date Time Temp Pulse Resp B/P (MAP) Pulse Ox O2 Delivery O2 Flow Rate FiO2 11/11/20 12:00 97.9 107 18 112/71 (85) 95 11/11/20 09:00 Nasal Cannula 3.0 11/11/20 08:05 32 Laboratory Tests Test 11/10/20 20:38 11/11/20 05:53 11/11/20 08:50 11/11/20 12:10 POC Whole Blood Glucose 89 MG/DL (74-106) 99 MG/DL (74-106) Pending White Blood Count 15.1 K/UL (4.8-10.8) H Red Blood Count 2.54 M/UL (4.70-6.10) L Hemoglobin 8.8 G/DL (14.2-18.0) L Hematocrit 26.9 % (42.0-52.0) L Mean Corpuscular Volume 106 FL (80-99) H Mean Corpuscular Hemoglobin 34.6 PG (27.0-31.0) H Mean Corpuscular Hemoglobin Concent 32.7 G/DL (32.0-36.0) Red Cell Distribution Width 19.3 % (11.6-14.8) H Platelet Count 281 K/UL (150-450) Mean Platelet Volume 5.7 FL (6.5-10.1) L Neutrophils (%) (Auto) % (45.0-75.0) Lymphocytes (%) (Auto) % (20.0-45.0) Monocytes (%) (Auto) % (1.0-10.0) Eosinophils (%) (Auto) % (0.0-3.0) Basophils (%) (Auto) % (0.0-2.0) Differential Total Cells Counted 100 Neutrophils % (Manual) 86 % (45-75) H Lymphocytes % (Manual) 8 % (20-45) L Monocytes % (Manual) 3 % (1-10) Eosinophils % (Manual) 3 % (0-3) Basophils % (Manual) 0 % (0-2) Band Neutrophils 0 % (0-8) Platelet Estimate Adequate Platelet Morphology Normal Hypochromasia 1+ Anisocytosis 2+ Macrocytosis 1+ Sodium Level 136 MMOL/L (136-145) Potassium Level 4.2 MMOL/L (3.5-5.1) Chloride Level 100 MMOL/L (98-107) Carbon Dioxide Level 28 MMOL/L (21-32) Anion Gap 8 mmol/L (5-15) Blood Urea Nitrogen 32 mg/dL (7-18) H Creatinine 1.6 MG/DL (0.55-1.30) H Estimat Glomerular Filtration Rate 44.6 mL/min (>60) Glucose Level 134 MG/DL (74-106) H Calcium Level 8.4 MG/DL (8.5-10.1) L Intake and Output 0 11/10/20 11/11/20 19:00 07:00 Intake Total 430.0 ml 360 ml Output Total 350 ml 500 ml Balance 80.0 ml -140 ml Intake Oral 320 ml IV Total 110.0 ml Other 360 ml Output Urine Total 350 ml 500 ml # Bowel Movements 4 2 Objective Objective General: No acute distress, awake and alert HEENT: NCAT, sclera anicteric, PERRL, EOMI. Neck: Supple, no significant jugular venous distention, Lungs: Nasal canula; Fair inspiratory effort, , no Wheeze or Rales. Heart: Regular rate and rhythm, normal S1/S2, no murmurs Abdomen: soft, nontender, +distended. positive fluid shift, bowel sound present. / Rectal: Refused and deferred. Extremities: No Cyanosis , clubbing or edema. Neuro: A&O x 3, Able to move all extremities Skin: warm, no rash Assessment/Plan Assessment/Plan Assessment/Plan Assessment/Plan Sepsis Acute Hypoxia on BiPAP >> NRB mask >> venturi mask>>nasal canula alcohol abuse Liver Cirrhosis, Fatty liver Massive ascites renal failure DM2 HTN Plan: Cont empiric vanco/Zosyn High volume paracentesis, COVID PCR=Neg F/u BCx GI=Dr Encarnacion Nephrol=Dr Pozo S/P paracentesis 11/02/20 Jered Case MD Nov 11, 2020 15:34
[2020-11-11 16:00] VITALS: BP 131/82
--- NOTE | 2020-11-11 18:43 | NUR ---
NURSE NOTES: Patient medicated for complaint of pain,pain med given will follow up.Call placed to DR Encarnacion regarding if patient to get Paracentesis tomorrow. Ssn/Ssbn Weapons Equipment Operator state today if so patient will need lab draw for PT,PTT,INR.waiting for Doctor response.
--- NOTE | 2020-11-11 19:20 | NUR ---
NURSE HAND-OFF: charlee DIANE Important Events on Shift:[] Patient Status: [stable.] Diet: []CCHO medium Pending Orders: [] Pending Results/Labs:[] Pending MD notification:[]Clarifying if patient to receive Paracentesis on 11/12/20. Latest Vital Signs: Temperature 96.4 , Pulse 103 , B/P 131 /82 , Respiratory Rate 18 , O2 SAT 95 , Bi-pap, O2 Flow Rate 3.0 . Vital Sign Comment: [] Latest Childs Fall Score: 70 Fall Risk: High Risk Safety Measures: Call light Within Reach, Bed Alarm Zone 2, Side Rails Side Rails x2, Bed position Low and Locked. Fall Precautions: Yellow Socks Door Signy Report given to [].
--- NOTE | 2020-11-11 19:25 | NUR ---
NURSE NOTES: Received report from ROXI Michele. Pt is in bed and in no distress at this time. Pt has been having pain throughout the day. Call light within reach, bed locked and in lowest position, side rails up x2. Pt is able to make his needs known. Will continue to monitor.
[2020-11-11 20:00] VITALS: BP 123/79
[2020-11-12] VITALS (7 sets, daily range): BP systolic 103–128; BP diastolic 57–83
[2020-11-12] MEDS: HYDROcodone/Acetamin 5/325 tab ORAL PRN ×2 (01:29→08:54)
[2020-11-12] MEDS: Midodrine 10mg tab ORAL SCH ×3 (06:00→21:57)
[2020-11-12] MEDS: NovoLOG Insulin Flexpen SUBQ SCH ×4 (06:27→21:00)
--- NOTE | 2020-11-12 06:30 | General Progress Note ---
Subjective ROS Limited/Unobtainable: No Allergies: Coded Allergies: No Known Allergies (Unverified , 10/02/16) Objective Last 24 Hour Vital Signs Date Time Temp Pulse Resp B/P (MAP) Pulse Ox O2 Delivery O2 Flow Rate FiO2 11/12/20 04:00 97.2 115 19 119/83 (95) 95 11/12/20 00:00 97.3 105 17 128/82 (97) 97 11/11/20 21:00 Nasal Cannula 3.0 11/11/20 20:00 97.7 110 18 123/79 (94) 97 11/11/20 19:17 103 18 95 Nasal Cannula 3.0 32 11/11/20 19:17 95 Nasal Cannula 3.0 32 11/11/20 16:00 96.4 110 19 131/82 (98) 95 11/11/20 12:00 97.9 107 18 112/71 (85) 95 11/11/20 11:07 98.6 11/11/20 09:00 Nasal Cannula 3.0 11/11/20 08:05 103 18 98 Nasal Cannula 3.0 32 11/11/20 08:05 98 Nasal Cannula 3.0 32 11/11/20 08:00 97.9 84 18 99/47 (64) 98 Intake and Output 11/11/20 11/12/20 19:00 07:00 Output Total 1500 ml Balance -1500 ml Output Urine Total 500 ml Stool Total 1000 ml # Voids 4 1 # Bowel Movements 1 3 Laboratory Tests 11/11/20 08:50: White Blood Count 15.1H, Red Blood Count 2.54L, Hemoglobin 8.8L, Hematocrit 26.9L, Mean Corpuscular Volume 106H, Mean Corpuscular Hemoglobin 34.6H, Mean Corpuscular Hemoglobin Concent 32.7, Red Cell Distribution Width 19.3H, Platelet Count 281, Mean Platelet Volume 5.7L, Neutrophils (%) (Auto) , Lymphocytes (%) (Auto) , Monocytes (%) (Auto) , Eosinophils (%) (Auto) , Basophils (%) (Auto) , Differential Total Cells Counted 100, Neutrophils % (Manual) 86H, Lymphocytes % (Manual) 8L, Monocytes % (Manual) 3, Eosinophils % (Manual) 3, Basophils % (Manual) 0, Band Neutrophils 0, Platelet Estimate Adequate, Platelet Morphology Normal, Hypochromasia 1+, Anisocytosis 2+, Macrocytosis 1+, Sodium Level 136, Potassium Level 4.2, Chloride Level 100, Carbon Dioxide Level 28, Anion Gap 8, Blood Urea Nitrogen 32H, Creatinine 1.6H, Estimat Glomerular Filtration Rate 44.6, Glucose Level 134H, Calcium Level 8.4L 11/11/20 12:10: POC Whole Blood Glucose [Pending] 11/11/20 16:41: POC Whole Blood Glucose 146H 11/11/20 16:44: POC Whole Blood Glucose 131H 11/11/20 20:39: POC Whole Blood Glucose 145H 11/12/20 06:19: POC Whole Blood Glucose 146H Height (Feet): 6 Height (Inches): 1.00 Weight (Pounds): 200 General Appearance: no apparent distress EENT: normal ENT inspection Neck: supple Cardiovascular: normal rate Respiratory/Chest: decreased breath sounds Abdomen: normal bowel sounds, non tender, soft Extremities: non-tender Assessment/Plan Problem List: (1) Cirrhosis ICD Codes: K74.60 - Unspecified cirrhosis of liver SNOMED: 39750246 (2) Hepatic encephalopathy ICD Codes: K72.90 - Hepatic failure, unspecified without coma; R65.20 - Severe sepsis without septic shock SNOMED: 79424031 (3) Hypokalemia ICD Codes: E87.6 - Hypokalemia; R65.20 - Severe sepsis without septic shock SNOMED: 32300587 (4) Ascites ICD Codes: R18.8 - Other ascites SNOMED: 070266639 (5) Severe sepsis ICD Codes: A41.9 - Sepsis, unspecified organism; R65.20 - Severe sepsis without septic shock SNOMED: 48372987 (6) AMS (altered mental status) ICD Codes: R41.82 - Altered mental status, unspecified SNOMED: 107652804 Assessment/Plan: Assessment/Plan Problem List: (1) Cirrhosis ICD Codes: K74.60 - Unspecified cirrhosis of liver SNOMED: 77208912 (2) Hepatic encephalopathy ICD Codes: K72.90 - Hepatic failure, unspecified without coma; R65.20 - Severe sepsis without septic shock SNOMED: 55970851 (3) Hypokalemia ICD Codes: E87.6 - Hypokalemia; R65.20 - Severe sepsis without septic shock SNOMED: 98257799 (4) Ascites ICD Codes: R18.8 - Other ascites SNOMED: 875673629 (5) Severe sepsis ICD Codes: A41.9 - Sepsis, unspecified organism; R65.20 - Severe sepsis without septic shock SNOMED: 03546946 (6) AMS (altered mental status) ICD Codes: R41.82 - Altered mental status, unspecified SNOMED: 697053559 Assessment/Plan: po as tolerated Elevate HOB lactulose PPI f/u ammonia level fu hepatitis panel>>> neg pending repeat paracentesis Mejia Encarnacion MD Nov 12, 2020 06:30
--- NOTE | 2020-11-12 07:10 | NUR ---
NURSE HAND-OFF: Important Events on Shift: BM x2, pain management, consent for paracentesis Patient Status: Sleeping Diet: CCHO medium Pending Orders: Pending Results/Labs: Pending MD notification: Latest Vital Signs: Temperature 97.2 , Pulse 115 , B/P 119 /83 , Respiratory Rate 19 , O2 SAT 95 , Bi-pap, O2 Flow Rate 3.0 . Vital Sign Comment: VSS Latest Childs Fall Score: 70 Fall Risk: High Risk Safety Measures: Call light Within Reach, Bed Alarm Zone 2, Side Rails Side Rails x2, Bed position Low and Locked. Fall Precautions: Yellow Socks Door Sign Report given to ROXI Adams.
--- NOTE | 2020-11-12 07:48 | NUR ---
NURSE NOTES: Received pt in bed, in NAD at this time. On nasal cannula 2L/min, no respiratory distress noted. Left wrist PIV access, saline locked. Call light within reach, bed locked and in lowest position, side rails up x2. Pt is able to make his needs known. Will continue to monitor and follow up with the plan of care.
[2020-11-12] MEDS: Heparin 5000 units/ml inj SUBQ SCH ×2 (09:00→22:01)
[2020-11-12 09:11] LABS: HEMOGLOBIN 9.3 G/DL (14.2-18.0); MEAN CORPUSCULAR VOLUME 108 FL (80-99); PLATELET COUNT 315 K/UL (150-450); RED BLOOD COUNT 2.68 M/UL (4.70-6.10); RED CELL DISTRIBUTION WIDTH 19.8 % (11.6-14.8); WHITE BLOOD COUNT 14.7 K/UL (4.8-10.8)
[2020-11-12 09:27] LABS: INR 1.2 (0.9-1.1)
[2020-11-12] MEDS: Magnesium Oxide 400mg tab ORAL SCH (09:58)
[2020-11-12] MEDS: Allopurinol 100mg Tab ORAL SCH (09:59)
[2020-11-12 10:06] LABS: ALBUMIN 1.6 G/DL (3.4-5.0); ALBUMIN/GLOBULIN RATIO 0.3 (1.0-2.7); BILIRUBIN,TOTAL 1.1 MG/DL (0.2-1.0); CALCIUM 8.7 MG/DL (8.5-10.1); CREATININE 1.3 MG/DL (0.55-1.30); POTASSIUM 4.3 MMOL/L (3.5-5.1)
[2020-11-12 10:11] LABS: BILIRUBIN,DIRECT 0.6 MG/DL (0.0-0.3)
--- NOTE | 2020-11-12 10:28 | Nephrology Progress Note ---
Assessment/Plan Problem List: (1) Renal failure (ARF), acute on chronic (2) Electrolyte imbalance (3) Hypokalemia (4) Cirrhosis (5) DMII (diabetes mellitus, type 2) (6) Anemia (7) HTN (hypertension) Assessment Renal failure most likely acute on chronic Electrolyte imbalances, hypokalemia Sepsis Hepatic encephalopathy, ascites, fatty liver Anemia History of EtOH abuse, history of tobacco abuse, history of drug abuse Diabetes mellitus type 2 Hypertension Lymphopenia, leukocytosis, hypoxia Plan November 12: Labs reviewed. Serum creatinine now within normal limits. Much improved from renal standpoint of view. November 11: Labs reviewed. Serum creatinine 1.6. Stable from renal standpoint reviewed. November 10: Labs reviewed. Serum creatinine lowered to 1.9. Continue to monitor renal parameters. Magnesium supplement ordered. November 09: No CHEM panel drawn today. Will DC Hernandez due to pain in the urethra. We will continue to monitor renal parameters. Continue per consultants. November 08: Labs reviewed. Serum creatinine 2.3 unchanged. Electrolytes within normal limit. Continue per consultants. November 07: Labs reviewed. Serum creatinine down to 2.3. Continue to monitor electrolytes. Low magnesium addressed. November 06: Labs reviewed. Serum creatinine 2.5 unchanged. Continue per consultants. November 05: Labs reviewed. Serum creatinine plateauing. Status quo. Electrolyte acceptable. Now on oxygen by cannula. Continue per consultants. November 04 labs reviewed. Patient full code. On Venturi mask. Low potassium addressed. Serum creatinine rising. Continue to monitor renal parameters. Allopurinol initiated November 03: Labs reviewed. Medication list reviewed. Abnormal electrolyte addressed. Continue monitor renal parameters. Continue per consultants. Previously: Trial of 3% saline and albumin bolus Potassium supplement Monitor renal parameters, ammonia, electrolytes ordered Subjective ROS Limited/Unobtainable: No Constitutional: Reports: malaise Objective Objective Last 24 Hour Vital Signs Date Time Temp Pulse Resp B/P (MAP) Pulse Ox O2 Delivery O2 Flow Rate FiO2 11/12/20 09:24 97.2 11/12/20 04:00 97.2 115 19 119/83 (95) 95 11/12/20 00:00 97.3 105 17 128/82 (97) 97 11/11/20 21:00 Nasal Cannula 3.0 11/11/20 20:00 97.7 110 18 123/79 (94) 97 11/11/20 19:17 103 18 95 Nasal Cannula 3.0 32 11/11/20 19:17 95 Nasal Cannula 3.0 32 11/11/20 16:00 96.4 110 19 131/82 (98) 95 11/11/20 12:00 97.9 107 18 112/71 (85) 95 11/11/20 11:07 98.6 Intake and Output 11/11/20 11/12/20 19:00 07:00 Output Total 1500 ml Balance -1500 ml Output Urine Total 500 ml Stool Total 1000 ml # Voids 4 1 # Bowel Movements 1 3 Current Medications Medications (Trade) Dose Ordered Sig/Kylah Route PRN Reason Start Time Stop Time Status Last Admin Dose Admin Acetaminophen (Tylenol) 500 mg Q6H PRN ORAL Mild Pain 11/02/20 08:30 12/02/20 08:29 11/11/20 18:43 Acetaminophen (Tylenol) 500 mg Q6H PRN ORAL fever > 100.2 11/02/20 08:45 12/02/20 08:44 Acetaminophen/ Hydrocodone Bitart ([place] 5/325) 1 tab Q6H PRN ORAL Severe Pain (Pain Scale 7-10) 11/11/20 10:15 11/18/20 10:14 11/12/20 08:54 Allopurinol (Zyloprim) 200 mg DAILY ORAL 11/04/20 15:00 12/04/20 14:59 11/12/20 09:59 Dextrose (Dextrose 50%) 25 ml Q30M PRN IV Hypoglycemia 11/01/20 18:30 01/30/21 18:29 Dextrose (Dextrose 50%) 50 ml Q30M PRN IV Hypoglycemia 11/01/20 18:30 01/30/21 18:29 Folic Acid (Folate) 3 mg DAILY ORAL 11/03/20 13:15 12/03/20 13:14 11/12/20 09:58 Heparin Sodium (Porcine) (Heparin 5000 units/ml) 5,000 units EVERY 12 HOURS SUBQ 11/01/20 21:00 12/16/20 20:59 11/11/20 20:39 Insulin Aspart (NovoLOG) BEFORE MEALS AND HS SUBQ 11/01/20 21:00 01/30/21 20:59 11/12/20 06:27 Magnesium Oxide (Mag-Ox 400mg) 400 mg THREE TIMES A DAY ORAL 11/11/20 09:00 12/11/20 08:59 11/12/20 09:58 Midodrine (Pro-Amatine) 10 mg Q8HR ORAL 11/02/20 14:00 01/31/21 13:59 11/10/20 13:07 Pantoprazole (Protonix) 40 mg EVERY 12 HOURS ORAL 11/02/20 21:00 12/02/20 20:59 11/12/20 09:58 Laboratory Tests 11/11/20 12:10: POC Whole Blood Glucose [Pending] 11/11/20 16:41: POC Whole Blood Glucose 146H 11/11/20 16:44: POC Whole Blood Glucose 131H 11/11/20 20:39: POC Whole Blood Glucose 145H 11/12/20 06:19: POC Whole Blood Glucose 146H 11/12/20 08:55: White Blood Count 14.7H, Red Blood Count 2.68L, Hemoglobin 9.3L, Hematocrit 29.0L, Mean Corpuscular Volume 108H, Mean Corpuscular Hemoglobin 34.6H, Mean Corpuscular Hemoglobin Concent 31.9L, Red Cell Distribution Width 19.8H, Platelet Count 315, Mean Platelet Volume 5.4L, Neutrophils (%) (Auto) , Lymphocytes (%) (Auto) , Monocytes (%) (Auto) , Eosinophils (%) (Auto) , Basophils (%) (Auto) , Neutrophils % (Manual) [Pending], Lymphocytes % (Manual) [Pending], Platelet Estimate [Pending], Platelet Morphology [Pending], Prothrombin Time 12.9H, Prothromb Time International Ratio 1.2H, Activated Partial Thromboplast Time 31, Sodium Level 136, Potassium Level 4.3, Chloride Level 100, Carbon Dioxide Level 31, Anion Gap 5, Blood Urea Nitrogen 31H, Creatinine 1.3, Estimat Glomerular Filtration Rate 56.7, Glucose Level 138H, Calcium Level 8.7, Total Bilirubin 1.1H, Direct Bilirubin 0.6H, Aspartate Amino Transf (AST/SGOT) 46H, Alanine Aminotransferase (ALT/SGPT) 15, Alkaline Phosphatase 158H, Ammonia 20, Total Protein 7.3, Albumin 1.6L, Globulin 5.7, Albumin/Globulin Ratio 0.3L Height (Feet): 6 Height (Inches): 1.00 Weight (Pounds): 200 General Appearance: no apparent distress Cardiovascular: tachycardia Respiratory/Chest: decreased breath sounds Abdomen: distended Kalin Pozo MD Nov 12, 2020 10:28
--- NOTE | 2020-11-12 12:11 | NUR ---
CASE MANAGEMENT:REVIEW 11/12/20 SI: SEPSIS. HYPOXIA. ETOH ABUSE. ASCITES S/P PARACENTESIS~ 10.2 L REMOVED 97/2 107 16 126/77 93% ON 3L/NC WBC+14.7 H/H-9.3/29.0 IS: NORCO PO Q6HRS PRN ALLOPURINOL PO QD FOLATE PO QD PROTONIX PO Q12 MIDODRINE PO Q8HRS HEPARIN SQ Q12 : STEP DOWN UNIT DCP: FROM HOME... PLAN: NEED TO WEAN TO ROOM AIR...WILL NOT BE ABLE TO OBTAIN HOME OXYGEN FOR HOME USE
--- NOTE | 2020-11-12 13:46 | CDS Physician Query ---
Clarification is required for compliance, coding accuracy, and to reflect severity of illness for this patient Dear Dr. Ramon Coombs Date 11/12/2020 Tobacco Sieve Operator/LENO Loza Clinical Documentation states: 11/09 progress note - Sepsis Acute Hypoxia on BiPAP >> resolved Treatment 11/01 to 11/04 - 14 L oxygen ----> p/f ratio < 300 Please clarify if the patient had any of the following conditions based on the above clinical findings: [x] Acute Respiratory Failure [] Chronic Respiratory Failure [] Acute on Chronic Respiratory Failure [] Acute Respiratory Distress [] Other: [] Unable to Determined Present on Admission: [] Yes [] No [] Clinically Undetermined Physician signature Date Please also document in your Progress Notes and/or Discharge Summary and indicate if the condition was present on admission. MTDD
--- NOTE | 2020-11-12 13:56 | NUR ---
NURSE NOTES: not given Pro-amantine as SBP > 105.
--- NOTE | 2020-11-12 15:53 | Pre-Procedure Note/Attestation ---
Pre-Procedure Note/Attestation Complete Prior to Procedure Procedure Narrative: paracentesis Indications for Procedure Pre-Operative Diagnosis: ascites Attestation I attest that I discussed the nature of the procedure; its benefits; risks and complications; and alternatives (and the risks and benefits of such alternatives), prior to the procedure, with the patient (or the patient's legal enrollment eligibility representative). I attest that, if there was a reasonable possibility of needing a blood transfusion, the patient (or the patient's legal enrollment eligibility representative) was given the [facility] standardized written summary, pursuant to the Christopher Faxon Blood Safety Act ([place] Health and Safety Code # 1645, as amended). I attest that I re-evaluated the patient just prior to the surgery and that there has been no change in the patient's H&P, except as documented below: Aman Love MD Nov 12, 2020 15:53
--- NOTE | 2020-11-12 17:14 | Diagnostic Imaging Report ---
Indications: Ascites Technique: Ultrasound used to localize optimal puncture site. Sterile prepping and draping . Local anesthesia with 1% lidocaine. Under real-time ultrasound guidance, puncture peritoneal space using paracentesis needle. Stylet removed. Catheter placed to vacuum bottle suction. Total 7 liters of fluid aspirated. After 7 L, drainage was discontinued, as patient developed tachycardia requiring albumin infusion. Findings: Followup sonography demonstrates residual pleural fluid Impression: Successful ultrasound-guided paracentesis, yielding 7 liters of fluid. Procedure complicated by postprocedure tachycardia
--- NOTE | 2020-11-12 18:30 | NUR ---
NURSE NOTES: patient underwent paracenthesis, - 7L out, started having tachycardia HR 144, sat 90% in2L O2, increased to 9L O2 and stopped paracenthesis under dr Love advise to fiber optic technician. Contacted dr Coombs, obtained order for Albumin, HR didn't improve. Obtained another order of bolus 500cc NS. Orders carried.
--- NOTE | 2020-11-12 18:53 | Internal Med Progress Note ---
Subjective Date of Service: Nov 12, 2020 Physician Name Jered Case Attending Physician Ramon Coombs MD Current Medications Medications (Trade) Dose Ordered Sig/Kylah Route PRN Reason Start Time Stop Time Status Last Admin Dose Admin Acetaminophen (Tylenol) 500 mg Q6H PRN ORAL Mild Pain 11/02/20 08:30 12/02/20 08:29 11/11/20 18:43 Acetaminophen (Tylenol) 500 mg Q6H PRN ORAL fever > 100.2 11/02/20 08:45 12/02/20 08:44 Acetaminophen/ Hydrocodone Bitart ([place] 5/325) 1 tab Q6H PRN ORAL Severe Pain (Pain Scale 7-10) 11/11/20 10:15 11/18/20 10:14 11/12/20 08:54 Allopurinol (Zyloprim) 200 mg DAILY ORAL 11/04/20 15:00 12/04/20 14:59 11/12/20 09:59 Dextrose (Dextrose 50%) 25 ml Q30M PRN IV Hypoglycemia 11/01/20 18:30 01/30/21 18:29 Dextrose (Dextrose 50%) 50 ml Q30M PRN IV Hypoglycemia 11/01/20 18:30 01/30/21 18:29 Folic Acid (Folate) 3 mg DAILY ORAL 11/03/20 13:15 12/03/20 13:14 11/12/20 09:58 Heparin Sodium (Porcine) (Heparin 5000 units/ml) 5,000 units EVERY 12 HOURS SUBQ 11/01/20 21:00 12/16/20 20:59 11/11/20 20:39 Insulin Aspart (NovoLOG) BEFORE MEALS AND HS SUBQ 11/01/20 21:00 01/30/21 20:59 11/12/20 06:27 Midodrine (Pro-Amatine) 10 mg Q8HR ORAL 11/02/20 14:00 01/31/21 13:59 11/10/20 13:07 Pantoprazole (Protonix) 40 mg EVERY 12 HOURS ORAL 11/02/20 21:00 12/02/20 20:59 11/12/20 09:58 Sodium Chloride 500 ml @ 999 mls/hr Q31M ONCE IV 11/12/20 18:45 11/12/20 19:15 Allergies: Coded Allergies: No Known Allergies (Unverified , 10/02/16) ROS Limited/Unobtainable: No Constitutional: Reports: no symptoms HEENT: Reports: no symptoms Cardiovascular: Reports: no symptoms Respiratory: Reports: no symptoms Gastrointestinal/Abdominal: Reports: no symptoms Genitourinary: Reports: no symptoms Neurologic/Psychiatric: Reports: no symptoms Subjective 60 YO M with history of alcohol dependence admitted with shortness of breath. Now respiratroy failure. Cover for Int Med-DR Coombs. S/P paracentesis 11/02/20 Objective Last Vital Signs Date Time Temp Pulse Resp B/P (MAP) Pulse Ox O2 Delivery O2 Flow Rate FiO2 11/12/20 18:00 97.8 139 20 103/57 (72) 93 11/12/20 09:00 Nasal Cannula 3.0 11/11/20 19:17 32 Laboratory Tests Test 11/11/20 20:39 11/12/20 06:19 11/12/20 08:55 11/12/20 12:03 POC Whole Blood Glucose 145 MG/DL (74-106) H 146 MG/DL (74-106) H Pending White Blood Count 14.7 K/UL (4.8-10.8) H Red Blood Count 2.68 M/UL (4.70-6.10) L Hemoglobin 9.3 G/DL (14.2-18.0) L Hematocrit 29.0 % (42.0-52.0) L Mean Corpuscular Volume 108 FL (80-99) H Mean Corpuscular Hemoglobin 34.6 PG (27.0-31.0) H Mean Corpuscular Hemoglobin Concent 31.9 G/DL (32.0-36.0) L Red Cell Distribution Width 19.8 % (11.6-14.8) H Platelet Count 315 K/UL (150-450) Mean Platelet Volume 5.4 FL (6.5-10.1) L Neutrophils (%) (Auto) % (45.0-75.0) Lymphocytes (%) (Auto) % (20.0-45.0) Monocytes (%) (Auto) % (1.0-10.0) Eosinophils (%) (Auto) % (0.0-3.0) Basophils (%) (Auto) % (0.0-2.0) Differential Total Cells Counted 100 Neutrophils % (Manual) 87 % (45-75) H Lymphocytes % (Manual) 4 % (20-45) L Monocytes % (Manual) 9 % (1-10) Eosinophils % (Manual) 0 % (0-3) Basophils % (Manual) 0 % (0-2) Band Neutrophils 0 % (0-8) Platelet Estimate Adequate Platelet Morphology Normal Hypochromasia 1+ Anisocytosis 2+ Macrocytosis 1+ Prothrombin Time 12.9 SEC (9.30-11.50) H Prothromb Time International Ratio 1.2 (0.9-1.1) H Activated Partial Thromboplast Time 31 SEC (23-33) Sodium Level 136 MMOL/L (136-145) Potassium Level 4.3 MMOL/L (3.5-5.1) Chloride Level 100 MMOL/L (98-107) Carbon Dioxide Level 31 MMOL/L (21-32) Anion Gap 5 mmol/L (5-15) Blood Urea Nitrogen 31 mg/dL (7-18) H Creatinine 1.3 MG/DL (0.55-1.30) Estimat Glomerular Filtration Rate 56.7 mL/min (>60) Glucose Level 138 MG/DL (74-106) H Calcium Level 8.7 MG/DL (8.5-10.1) Total Bilirubin 1.1 MG/DL (0.2-1.0) H Direct Bilirubin 0.6 MG/DL (0.0-0.3) H Aspartate Amino Transf (AST/SGOT) 46 U/L (15-37) H Alanine Aminotransferase (ALT/SGPT) 15 U/L (12-78) Alkaline Phosphatase 158 U/L (46-116) H Ammonia 20 umol/L (11-32) Total Protein 7.3 G/DL (6.4-8.2) Albumin 1.6 G/DL (3.4-5.0) L Globulin 5.7 g/dL Albumin/Globulin Ratio 0.3 (1.0-2.7) L Test 11/12/20 16:36 POC Whole Blood Glucose Pending Intake and Output 11/11/20 11/12/20 19:00 07:00 Output Total 1500 ml Balance -1500 ml Output Urine Total 500 ml Stool Total 1000 ml # Voids 4 1 # Bowel Movements 1 3 Objective Objective General: No acute distress, awake and alert HEENT: NCAT, sclera anicteric, PERRL, EOMI. Neck: Supple, no significant jugular venous distention, Lungs: Nasal canula; Fair inspiratory effort, , no Wheeze or Rales. Heart: Regular rate and rhythm, normal S1/S2, no murmurs Abdomen: soft, nontender, +distended. positive fluid shift, bowel sound present. / Rectal: Refused and deferred. Extremities: No Cyanosis , clubbing or edema. Neuro: A&O x 3, Able to move all extremities Skin: warm, no rash Assessment/Plan Assessment/Plan Assessment/Plan Assessment/Plan Sepsis Acute Hypoxia on BiPAP >> NRB mask >> venturi mask>>nasal canula alcohol abuse Liver Cirrhosis, Fatty liver Massive ascites renal failure DM2 HTN Plan: ABX=S/P vanco and Zosyn High volume paracentesis, COVID PCR=Neg F/u BCx GI=Dr Encarnacion Nephrol=Dr Pozo S/P paracentesis 11/02/20 Jered Case MD Nov 12, 2020 18:53
--- NOTE | 2020-11-12 19:51 | NUR ---
NURSE HAND-OFF: Important Events on Shift:[] Patient Status: [] Diet: [ccho med] Pending Orders: [AML] Pending Results/Labs:[] Pending MD notification:[] Latest Vital Signs: Temperature 97.8 , Pulse 139 , B/P 103 /57 , Respiratory Rate 20 , O2 SAT 93 , Bi-pap, O2 Flow Rate 3.0 . Vital Sign Comment: [] Latest Childs Fall Score: 70 Fall Risk: High Risk Safety Measures: Call light Within Reach, Bed Alarm Zone 2, Side Rails Side Rails x2, Bed position Low and Locked. Fall Precautions: Yellow Socks Door Sign Report given to [ROXI Rojas].
--- NOTE | 2020-11-12 20:10 | NUR ---
NURSES NOTE: Received report from ROXI Hagan. Rounds completed. Pt in bed, A/OX3, denies pain or discomfort at this time. No outward s/s of distress noted. Breathing is even on 3L nasal canula. Hernandez in place draining to gravity. IV L hand in place, infusing IVF without incident. Assessing pt heart rate as pt HR was accelerated AM shift 130-140. Pt received NS 500cc bolus. Will monitor pt. Call light within reach. Bed at lowest level.
[2020-11-13] VITALS: BP 106/66
[2020-11-13 04:00] VITALS: BP 106/69
[2020-11-13] MEDS: Midodrine 10mg tab ORAL SCH ×3 (05:57→22:30)
[2020-11-13] MEDS: NovoLOG Insulin Flexpen SUBQ SCH ×4 (06:04→20:36)
--- NOTE | 2020-11-13 06:32 | NUR ---
NURSE HAND-OFF: Important Events on Shift:[HR remains tachy. HR ranges between 138-144. Call left for dr ewing at 0630 for possible further orders.] Patient Status: [stable] Diet: [CCHO MEDIUM] Pending Orders: [n/a] Pending Results/Labs:[AM labs still pending] Pending MD notification:[N/A. Call already placed for HR] Latest Vital Signs: Temperature 97.7 , Pulse 142 , B/P 106 /69 , Respiratory Rate 24 , O2 SAT 94 , Bi-pap, O2 Flow Rate 5.0 . Vital Sign Comment: [HR accelerated] Latest Childs Fall Score: 70 Fall Risk: High Risk Safety Measures: Call light Within Reach, Bed Alarm Zone 2, Side Rails Side Rails x2, Bed position Low and Locked. Fall Precautions: Yellow Socks Door Sign Report given to [].
[2020-11-13 06:42] LABS: BASOPHILS % (AUTO) 1.6 % (0.0-2.0); EOSINOPHILS % (AUTO) 0.9 % (0.0-3.0); HEMATOCRIT 26.8 % (42.0-52.0); HEMOGLOBIN 9.1 G/DL (14.2-18.0); LYMPHOCYTES % (AUTO) 8.9 % (20.0-45.0); MEAN CORPUSCULAR VOLUME 105 FL (80-99); MONOCYTES % (AUTO) 5.4 % (1.0-10.0); NEUTROPHILS % (AUTO) 83.2 % (45.0-75.0); PLATELET COUNT 283 K/UL (150-450); RED BLOOD COUNT 2.54 M/UL (4.70-6.10); RED CELL DISTRIBUTION WIDTH 20.9 % (11.6-14.8); WHITE BLOOD COUNT 13.7 K/UL (4.8-10.8)
[2020-11-13 07:22] LABS: PHOSPHORUS 2.2 MG/DL (2.5-4.9)
[2020-11-13 07:23] LABS: ALANINE AMINOTRANSFERASE 11 U/L (12-78); ALBUMIN 1.6 G/DL (3.4-5.0); ALBUMIN/GLOBULIN RATIO 0.3 (1.0-2.7); ALKALINE PHOSPHATASE 140 U/L (46-116); ANION GAP 6 mmol/L (5-15); ASPARTATE AMINO TRANSFERASE 42 U/L (15-37); BLOOD UREA NITROGEN 27 mg/dL (7-18); CALCIUM 8.5 MG/DL (8.5-10.1); CARBON DIOXIDE 30 MMOL/L (21-32); CHLORIDE 102 MMOL/L (98-107); CREATININE 1.2 MG/DL (0.55-1.30); POTASSIUM 3.8 MMOL/L (3.5-5.1); SODIUM 138 MMOL/L (136-145)
--- NOTE | 2020-11-13 07:30 | NUR ---
NURSE NOTES: Patient is in bed awake and stable. Breathing is even and unlabored, no visible signs of distress noted. Patient instructed to use call light for assistance, verbalized understanding. Patient is in bed in locked and lowest position with call light within reach. All safety measures provided. Will continue plan of care.
--- NOTE | 2020-11-13 07:37 | NUR ---
HAND OFF: Report given to ROXI Kulkarni.
[2020-11-13 07:42] LABS: BILIRUBIN,TOTAL 0.9 MG/DL (0.2-1.0)
[2020-11-13 08:00] VITALS: BP 110/73
[2020-11-13] MEDS: Acetaminophen 500mg (ES) tab ORAL PRN (08:33)
[2020-11-13] MEDS: Allopurinol 100mg Tab ORAL SCH (08:34)
[2020-11-13] MEDS: Heparin 5000 units/ml inj SUBQ SCH ×2 (08:36→20:14)
--- NOTE | 2020-11-13 08:39 | Infectious Diseases Prog Note ---
Assessment/Plan 60yo M with: Sepsis Afebrile Hypoxia on BiPAP >> NRB mask >> venti mask Leukocytosis to 14, improving Lymphopenia 11/01 BCx NTD COVID PCR neg CXR: Elevated right hemidiaphragm. Possible right basilar airspace disease and right effusion. CTH: No acute process EtOH abuse Cirrhosis, Fatty liver Masive ascites Elevated AST to 48 Acute hep panel neg 11/01 CT A/P: CIRRHOSIS WITH LARGE AMOUNT OF ASCITES. SPLENIC GRANULOMAS. SLUDGE IN THE GALLBLADDER. SMALL RIGHT PLEURAL EFFUSION WITH COMPRESSIVE ATELECTASIS RIGHT LOWER LOBE. ELEVATED RIGHT HEMIDIAPHRAGM. 11/02 Paracentesis, 10.2L removed 838 RBC, 142 WBC, 2%PMN, 94%Hart's Cx - NTD DAVIDE vs CKD, Cr 2.4, improving HIV screen neg PMH: EtOH abuse, stopped drinking in Sep 2020 Fatty liver DM2 HTN Plan: Monitor off abx Trend WBC, overall stable/improving off abx 11/11 SP Zosyn #10 11/03 SP vanco #2 Monitor CBC/CMP Monitor temp curve, hemodynamics Monitor resp status D/w RN Thank you for this consult. [facility] will continue to follow. Subjective Allergies: Coded Allergies: No Known Allergies (Unverified , 10/02/16) AF NAD on 5L NC S/p 7L paracentesis yesterday WBC 13, improving Feels that breathing is labored, says they weren't able to take off all the liquid possible from abdomen yesterday due to tachycardia during procedure, stopped early Objective Last 24 Hour Vital Signs Date Time Temp Pulse Resp B/P (MAP) Pulse Ox O2 Delivery O2 Flow Rate FiO2 11/13/20 04:00 97.7 142 24 106/69 (81) 94 11/13/20 00:00 98.1 144 23 106/66 (79) 91 11/12/20 21:00 Nasal Cannula 5.0 11/12/20 20:00 97.8 115 20 103/65 (78) 91 11/12/20 18:00 97.8 139 20 103/57 (72) 93 11/12/20 16:00 97.9 145 17 111/77 (88) 92 11/12/20 12:00 97.3 113 18 124/79 (94) 95 11/12/20 09:24 97.2 11/12/20 09:00 Nasal Cannula 3.0 Height (Feet): 6 Height (Inches): 1.00 Weight (Pounds): 200 Gen: NAD HEENT: NCAT, EOMI Pulm: BL chest rise Abd: Distended, soft, +fluid wave Ext: No c/c/e Neuro: Awake, interactive Laboratory Tests Test 11/12/20 08:55 11/12/20 12:03 11/12/20 16:36 11/12/20 22:01 White Blood Count 14.7 K/UL (4.8-10.8) H Red Blood Count 2.68 M/UL (4.70-6.10) L Hemoglobin 9.3 G/DL (14.2-18.0) L Hematocrit 29.0 % (42.0-52.0) L Mean Corpuscular Volume 108 FL (80-99) H Mean Corpuscular Hemoglobin 34.6 PG (27.0-31.0) H Mean Corpuscular Hemoglobin Concent 31.9 G/DL (32.0-36.0) L Red Cell Distribution Width 19.8 % (11.6-14.8) H Platelet Count 315 K/UL (150-450) Mean Platelet Volume 5.4 FL (6.5-10.1) L Neutrophils (%) (Auto) % (45.0-75.0) Lymphocytes (%) (Auto) % (20.0-45.0) Monocytes (%) (Auto) % (1.0-10.0) Eosinophils (%) (Auto) % (0.0-3.0) Basophils (%) (Auto) % (0.0-2.0) Differential Total Cells Counted 100 Neutrophils % (Manual) 87 % (45-75) H Lymphocytes % (Manual) 4 % (20-45) L Monocytes % (Manual) 9 % (1-10) Eosinophils % (Manual) 0 % (0-3) Basophils % (Manual) 0 % (0-2) Band Neutrophils 0 % (0-8) Platelet Estimate Adequate Platelet Morphology Normal Hypochromasia 1+ Anisocytosis 2+ Macrocytosis 1+ Prothrombin Time 12.9 SEC (9.30-11.50) H Prothromb Time International Ratio 1.2 (0.9-1.1) H Activated Partial Thromboplast Time 31 SEC (23-33) Sodium Level 136 MMOL/L (136-145) Potassium Level 4.3 MMOL/L (3.5-5.1) Chloride Level 100 MMOL/L (98-107) Carbon Dioxide Level 31 MMOL/L (21-32) Anion Gap 5 mmol/L (5-15) Blood Urea Nitrogen 31 mg/dL (7-18) H Creatinine 1.3 MG/DL (0.55-1.30) Estimat Glomerular Filtration Rate 56.7 mL/min (>60) Glucose Level 138 MG/DL (74-106) H Calcium Level 8.7 MG/DL (8.5-10.1) Total Bilirubin 1.1 MG/DL (0.2-1.0) H Direct Bilirubin 0.6 MG/DL (0.0-0.3) H Aspartate Amino Transf (AST/SGOT) 46 U/L (15-37) H Alanine Aminotransferase (ALT/SGPT) 15 U/L (12-78) Alkaline Phosphatase 158 U/L (46-116) H Ammonia 20 umol/L (11-32) Total Protein 7.3 G/DL (6.4-8.2) Albumin 1.6 G/DL (3.4-5.0) L Globulin 5.7 g/dL Albumin/Globulin Ratio 0.3 (1.0-2.7) L POC Whole Blood Glucose Pending Pending 122 MG/DL (74-106) H Test 11/13/20 05:05 White Blood Count 13.7 K/UL (4.8-10.8) H Red Blood Count 2.54 M/UL (4.70-6.10) L Hemoglobin 9.1 G/DL (14.2-18.0) L Hematocrit 26.8 % (42.0-52.0) L Mean Corpuscular Volume 105 FL (80-99) H Mean Corpuscular Hemoglobin 35.9 PG (27.0-31.0) H Mean Corpuscular Hemoglobin Concent 34.1 G/DL (32.0-36.0) Red Cell Distribution Width 20.9 % (11.6-14.8) H Platelet Count 283 K/UL (150-450) Mean Platelet Volume 5.7 FL (6.5-10.1) L Neutrophils (%) (Auto) 83.2 % (45.0-75.0) H Lymphocytes (%) (Auto) 8.9 % (20.0-45.0) L Monocytes (%) (Auto) 5.4 % (1.0-10.0) Eosinophils (%) (Auto) 0.9 % (0.0-3.0) Basophils (%) (Auto) 1.6 % (0.0-2.0) Sodium Level 138 MMOL/L (136-145) Potassium Level 3.8 MMOL/L (3.5-5.1) Chloride Level 102 MMOL/L (98-107) Carbon Dioxide Level 30 MMOL/L (21-32) Anion Gap 6 mmol/L (5-15) Blood Urea Nitrogen 27 mg/dL (7-18) H Creatinine 1.2 MG/DL (0.55-1.30) Estimat Glomerular Filtration Rate > 60 mL/min (>60) Glucose Level 101 MG/DL (74-106) Uric Acid 4.1 MG/DL (2.6-7.2) Calcium Level 8.5 MG/DL (8.5-10.1) Phosphorus Level 2.2 MG/DL (2.5-4.9) L Magnesium Level 1.7 MG/DL (1.8-2.4) L Total Bilirubin 0.9 MG/DL (0.2-1.0) Aspartate Amino Transf (AST/SGOT) 42 U/L (15-37) H Alanine Aminotransferase (ALT/SGPT) 11 U/L (12-78) L Alkaline Phosphatase 140 U/L (46-116) H C-Reactive Protein, Quantitative 9.5 mg/dL (0.00-0.90) H Pro-B-Type Natriuretic Peptide 2414 pg/mL (0-125) H Total Protein 6.5 G/DL (6.4-8.2) Albumin 1.6 G/DL (3.4-5.0) L Globulin 4.9 g/dL Albumin/Globulin Ratio 0.3 (1.0-2.7) L Current Medications Medications (Trade) Dose Ordered Sig/Kylah Route PRN Reason Start Time Stop Time Status Last Admin Dose Admin Acetaminophen (Tylenol) 500 mg Q6H PRN ORAL Mild Pain 11/02/20 08:30 12/02/20 08:29 11/13/20 08:33 Acetaminophen (Tylenol) 500 mg Q6H PRN ORAL fever > 100.2 11/02/20 08:45 12/02/20 08:44 Acetaminophen/ Hydrocodone Bitart ([place] 5/325) 1 tab Q6H PRN ORAL Severe Pain (Pain Scale 7-10) 11/11/20 10:15 11/18/20 10:14 11/12/20 08:54 Allopurinol (Zyloprim) 200 mg DAILY ORAL 11/04/20 15:00 12/04/20 14:59 11/13/20 08:34 Dextrose (Dextrose 50%) 25 ml Q30M PRN IV Hypoglycemia 11/01/20 18:30 01/30/21 18:29 Dextrose (Dextrose 50%) 50 ml Q30M PRN IV Hypoglycemia 11/01/20 18:30 01/30/21 18:29 Folic Acid (Folate) 3 mg DAILY ORAL 11/03/20 13:15 12/03/20 13:14 11/13/20 08:34 Heparin Sodium (Porcine) (Heparin 5000 units/ml) 5,000 units EVERY 12 HOURS SUBQ 11/01/20 21:00 12/16/20 20:59 11/13/20 08:36 Insulin Aspart (NovoLOG) BEFORE MEALS AND HS SUBQ 11/01/20 21:00 01/30/21 20:59 11/12/20 06:27 Midodrine (Pro-Amatine) 10 mg Q8HR ORAL 11/02/20 14:00 01/31/21 13:59 11/12/20 21:57 Pantoprazole (Protonix) 40 mg EVERY 12 HOURS ORAL 11/02/20 21:00 12/02/20 20:59 11/13/20 08:34 Viviana Casper M.D. Nov 13, 2020 08:39
--- NOTE | 2020-11-13 08:56 | General Progress Note ---
Subjective ROS Limited/Unobtainable: No Allergies: Coded Allergies: No Known Allergies (Unverified , 10/02/16) Objective Last 24 Hour Vital Signs Date Time Temp Pulse Resp B/P (MAP) Pulse Ox O2 Delivery O2 Flow Rate FiO2 11/13/20 04:00 97.7 142 24 106/69 (81) 94 11/13/20 00:00 98.1 144 23 106/66 (79) 91 11/12/20 21:00 Nasal Cannula 5.0 11/12/20 20:00 97.8 115 20 103/65 (78) 91 11/12/20 18:00 97.8 139 20 103/57 (72) 93 11/12/20 16:00 97.9 145 17 111/77 (88) 92 11/12/20 12:00 97.3 113 18 124/79 (94) 95 11/12/20 09:24 97.2 11/12/20 09:00 Nasal Cannula 3.0 Intake and Output 11/12/20 11/13/20 19:00 07:00 Intake Total 480 ml Output Total 400 ml 350 ml Balance -400 ml 130 ml Intake Oral 480 ml Output Urine Total 400 ml 350 ml # Bowel Movements 2 1 Laboratory Tests 11/12/20 12:03: POC Whole Blood Glucose [Pending] 11/12/20 16:36: POC Whole Blood Glucose [Pending] 11/12/20 22:01: POC Whole Blood Glucose 122H 11/13/20 05:05: White Blood Count 13.7H, Red Blood Count 2.54L, Hemoglobin 9.1L, Hematocrit 26.8L, Mean Corpuscular Volume 105H, Mean Corpuscular Hemoglobin 35.9H, Mean Corpuscular Hemoglobin Concent 34.1, Red Cell Distribution Width 20.9H, Platelet Count 283, Mean Platelet Volume 5.7L, Neutrophils (%) (Auto) 83.2H, Lymphocytes (%) (Auto) 8.9L, Monocytes (%) (Auto) 5.4, Eosinophils (%) (Auto) 0.9, Basophils (%) (Auto) 1.6, Sodium Level 138, Potassium Level 3.8, Chloride Level 102, Carbon Dioxide Level 30, Anion Gap 6, Blood Urea Nitrogen 27H, Creatinine 1.2, Estimat Glomerular Filtration Rate > 60, Glucose Level 101, Uric Acid 4.1, Calcium Level 8.5, Phosphorus Level 2.2L, Magnesium Level 1.7L, Total Bilirubin 0.9, Aspartate Amino Transf (AST/SGOT) 42H, Alanine Aminotransferase (ALT/SGPT) 11L, Alkaline Phosphatase 140H, C-Reactive Protein, Quantitative 9.5H, Pro-B-Type Natriuretic Peptide 2414H, Total Protein 6.5, Albumin 1.6L, Globulin 4.9, Albumin/Globulin Ratio 0.3L Height (Feet): 6 Height (Inches): 1.00 Weight (Pounds): 200 General Appearance: no apparent distress EENT: normal ENT inspection Neck: supple Cardiovascular: normal rate Respiratory/Chest: decreased breath sounds Abdomen: normal bowel sounds, non tender, soft Extremities: non-tender Assessment/Plan Problem List: (1) Cirrhosis ICD Codes: K74.60 - Unspecified cirrhosis of liver SNOMED: 45208746 (2) Hepatic encephalopathy ICD Codes: K72.90 - Hepatic failure, unspecified without coma; R65.20 - Severe sepsis without septic shock SNOMED: 19621815 (3) Hypokalemia ICD Codes: E87.6 - Hypokalemia; R65.20 - Severe sepsis without septic shock SNOMED: 91884500 (4) Ascites ICD Codes: R18.8 - Other ascites SNOMED: 440868857 (5) Severe sepsis ICD Codes: A41.9 - Sepsis, unspecified organism; R65.20 - Severe sepsis without septic shock SNOMED: 53258467 (6) AMS (altered mental status) ICD Codes: R41.82 - Altered mental status, unspecified SNOMED: 044897498 Assessment/Plan: Assessment/Plan Problem List: (1) Cirrhosis ICD Codes: K74.60 - Unspecified cirrhosis of liver SNOMED: 39797833 (2) Hepatic encephalopathy ICD Codes: K72.90 - Hepatic failure, unspecified without coma; R65.20 - Severe sepsis without septic shock SNOMED: 78841588 (3) Hypokalemia ICD Codes: E87.6 - Hypokalemia; R65.20 - Severe sepsis without septic shock SNOMED: 34526799 (4) Ascites ICD Codes: R18.8 - Other ascites SNOMED: 841861680 (5) Severe sepsis ICD Codes: A41.9 - Sepsis, unspecified organism; R65.20 - Severe sepsis without septic shock SNOMED: 99696003 (6) AMS (altered mental status) ICD Codes: R41.82 - Altered mental status, unspecified SNOMED: 956884344 Assessment/Plan: po as tolerated Elevate HOB lactulose PPI f/u ammonia level fu hepatitis panel>>> neg s/p repeat paracentesis 7 lit lasix aldactone repeat labs albumin Mejia Encarnacion MD Nov 13, 2020 08:56
[2020-11-13] MEDS: Spironolactone 50mg tab ORAL SCH (09:31)
--- NOTE | 2020-11-13 09:42 | NUR ---
RD ASSESSMENT & RECOMMENDATIONS SEE CARE ACTIVITY FOR COMPLETE ASSESSMENT DAILY ESTIMATED NEEDS: Needs based on Liver, DM 85.1 25-30 kcals/kg 8116-2765 total kcals 1.25-1.5 g protein/kg 106-128 g total protein Fluid per MD NUTRITION DIAGNOSIS: Decreased sodium and fat needs r/t liver cirrhosis as evidenced by s/p paracentesis 10.2L removed, elevated T bili and LFT's, ammonia elevated on adm, now wnl. CURRENT DIET: [facility] MED PO DIET RECOMMENDATIONS: Low Fat/ Low Sodium textures as tolerated ADDITIONAL RECOMMENDATIONS: 1) With BG >150, rec added [facility] MED diet 2) Obtain a calibrated bed scale wt 3) On lactulose, monitor lytes and hydration status 4) AM snacks daily 5) Skin integrity-> add TERRENCE BID
--- NOTE | 2020-11-13 10:09 | NUR ---
CASE MANAGEMENT:REVIEW 11/13/20 SI: SEPSIS. HYPOXIA. ETOH ABUSE. ASCITES S/P PARACENTESIS~ 10.2 L REMOVED 98.1 110 32 110/73 92% ON 5L/NC WBC+13.7 H/H-9.1/26.8 BUN+27 BNP+2414 IS: IV ALBUMIN X1 PROTONIX PO QD PHOSPHA PO TID MAG OXIDE PO TID ALDACTONE PO QD IV LASIX QD ALLOPURINOL PO QD FOLATE PO QD MIDODRINE PO Q8HRS HEPARIN SQ Q12 : NOW ON MED/SURG DCP: FROM HOME... PLAN: NEED TO WEAN TO ROOM AIR...WILL NOT BE ABLE TO OBTAIN OXYGEN FOR HOME USE
--- NOTE | 2020-11-13 10:23 | Nephrology Progress Note ---
Assessment/Plan Problem List: (1) Renal failure (ARF), acute on chronic (2) Electrolyte imbalance (3) Hypokalemia (4) Cirrhosis (5) DMII (diabetes mellitus, type 2) (6) Anemia (7) HTN (hypertension) Assessment Renal failure most likely acute on chronic Electrolyte imbalances, hypokalemia Sepsis Hepatic encephalopathy, ascites, fatty liver Anemia History of EtOH abuse, history of tobacco abuse, history of drug abuse Diabetes mellitus type 2 Hypertension Lymphopenia, leukocytosis, hypoxia Plan November 13: Labs reviewed. Normal renal parameters. Abnormal electrolytes noted and addressed. Vitamin D level results still pending November 12: Labs reviewed. Serum creatinine now within normal limits. Much improved from renal standpoint of view. November 11: Labs reviewed. Serum creatinine 1.6. Stable from renal standpoint reviewed. November 10: Labs reviewed. Serum creatinine lowered to 1.9. Continue to monitor renal parameters. Magnesium supplement ordered. November 09: No CHEM panel drawn today. Will DC Hernandez due to pain in the urethra. We will continue to monitor renal parameters. Continue per consultants. November 08: Labs reviewed. Serum creatinine 2.3 unchanged. Electrolytes within normal limit. Continue per consultants. November 07: Labs reviewed. Serum creatinine down to 2.3. Continue to monitor e lectrolytes. Low magnesium addressed. November 06: Labs reviewed. Serum creatinine 2.5 unchanged. Continue per consultants. November 05: Labs reviewed. Serum creatinine plateauing. Status quo. Electrolyte acceptable. Now on oxygen by cannula. Continue per consultants. November 04 labs reviewed. Patient full code. On Venturi mask. Low potassium addressed. Serum creatinine rising. Continue to monitor renal parameters. Allopurinol initiated November 03: Labs reviewed. Medication list reviewed. Abnormal electrolyte addressed. Continue monitor renal parameters. Continue per consultants. Previously: Trial of 3% saline and albumin bolus Potassium supplement Monitor renal parameters, ammonia, electrolytes ordered Subjective ROS Limited/Unobtainable: No Objective Objective Last 24 Hour Vital Signs Date Time Temp Pulse Resp B/P (MAP) Pulse Ox O2 Delivery O2 Flow Rate FiO2 11/13/20 09:00 Nasal Cannula 5.0 11/13/20 08:00 98.1 110 32 110/73 (85) 92 11/13/20 04:00 97.7 142 24 106/69 (81) 94 11/13/20 00:00 98.1 144 23 106/66 (79) 91 11/12/20 21:00 Nasal Cannula 5.0 11/12/20 20:00 97.8 115 20 103/65 (78) 91 11/12/20 18:00 97.8 139 20 103/57 (72) 93 11/12/20 16:00 97.9 145 17 111/77 (88) 92 11/12/20 12:00 97.3 113 18 124/79 (94) 95 Intake and Output 11/12/20 11/13/20 19:00 07:00 Intake Total 480 ml Output Total 400 ml 350 ml Balance -400 ml 130 ml Intake Oral 480 ml Output Urine Total 400 ml 350 ml # Bowel Movements 2 1 Current Medications Medications (Trade) Dose Ordered Sig/Kylah Route PRN Reason Start Time Stop Time Status Last Admin Dose Admin Acetaminophen (Tylenol) 500 mg Q6H PRN ORAL Mild Pain 11/02/20 08:30 12/02/20 08:29 11/13/20 08:33 Acetaminophen (Tylenol) 500 mg Q6H PRN ORAL fever > 100.2 11/02/20 08:45 12/02/20 08:44 Acetaminophen/ Hydrocodone Bitart ([place] 5/325) 1 tab Q6H PRN ORAL Severe Pain (Pain Scale 7-10) 11/11/20 10:15 11/18/20 10:14 11/12/20 08:54 Albumin Human 100 ml @ 100 mls/hr ONCE IV 11/13/20 11:00 11/13/20 12:00 Allopurinol (Zyloprim) 200 mg DAILY ORAL 11/04/20 15:00 12/04/20 14:59 11/13/20 08:34 Dextrose (Dextrose 50%) 25 ml Q30M PRN IV Hypoglycemia 11/01/20 18:30 01/30/21 18:29 Dextrose (Dextrose 50%) 50 ml Q30M PRN IV Hypoglycemia 11/01/20 18:30 01/30/21 18:29 Folic Acid (Folate) 3 mg DAILY ORAL 11/03/20 13:15 12/03/20 13:14 11/13/20 08:34 Furosemide (Lasix) 20 mg DAILY IV 11/13/20 10:00 12/13/20 09:59 11/13/20 09:31 Heparin Sodium (Porcine) (Heparin 5000 units/ml) 5,000 units EVERY 12 HOURS SUBQ 11/01/20 21:00 12/16/20 20:59 11/13/20 08:36 Insulin Aspart (NovoLOG) BEFORE MEALS AND HS SUBQ 11/01/20 21:00 01/30/21 20:59 11/12/20 06:27 Magnesium Oxide (Mag-Ox 400mg) 400 mg THREE TIMES A DAY ORAL 11/13/20 13:00 12/13/20 12:59 Midodrine (Pro-Amatine) 10 mg Q8HR ORAL 11/02/20 14:00 01/31/21 13:59 11/12/20 21:57 Pantoprazole (Protonix) 40 mg DAILY ORAL 11/14/20 09:00 12/14/20 08:59 Phosphorus (Phospha 250 Neutral) 250 mg THREE TIMES A DAY ORAL 11/13/20 13:00 12/13/20 12:59 Spironolactone (Aldactone) 50 mg DAILY ORAL 11/13/20 10:00 12/13/20 09:59 11/13/20 09:31 Laboratory Tests 11/12/20 12:03: POC Whole Blood Glucose [Pending] 11/12/20 16:36: POC Whole Blood Glucose [Pending] 11/12/20 22:01: POC Whole Blood Glucose 122H 11/13/20 05:05: White Blood Count 13.7H, Red Blood Count 2.54L, Hemoglobin 9.1L, Hematocrit 26.8L, Mean Corpuscular Volume 105H, Mean Corpuscular Hemoglobin 35.9H, Mean Corpuscular Hemoglobin Concent 34.1, Red Cell Distribution Width 20.9H, Platelet Count 283, Mean Platelet Volume 5.7L, Neutrophils (%) (Auto) 83.2H, Lymphocytes (%) (Auto) 8.9L, Monocytes (%) (Auto) 5.4, Eosinophils (%) (Auto) 0.9, Basophils (%) (Auto) 1.6, Sodium Level 138, Potassium Level 3.8, Chloride Level 102, Carbon Dioxide Level 30, Anion Gap 6, Blood Urea Nitrogen 27H, Creatinine 1.2, Estimat Glomerular Filtration Rate > 60, Glucose Level 101, Uric Acid 4.1, Calcium Level 8.5, Phosphorus Level 2.2L, Magnesium Level 1.7L, Total Bilirubin 0.9, Aspartate Amino Transf (AST/SGOT) 42H, Alanine Aminotransferase (ALT/SGPT) 11L, Alkaline Phosphatase 140H, C-Reactive Protein, Quantitative 9.5H, Pro-B-Type Natriuretic Peptide 2414H, Total Protein 6.5, Albumin 1.6L, Globulin 4.9, Albumin/Globulin Ratio 0.3L Height (Feet): 6 Height (Inches): 1.00 Weight (Pounds): 200 General Appearance: no apparent distress - No change Cardiovascular: tachycardia Respiratory/Chest: decreased breath sounds Abdomen: soft Kalin Pozo MD Nov 13, 2020 10:23
--- NOTE | 2020-11-13 10:40 | NUR ---
NURSE NOTES: RN spoke to lab regarding vitamin D lab results. Waiting for lab to give results. Addendum: 11/13/20 at 1657 by CHUCK THORNTON RN Lab results available on EMR.
[2020-11-13 12:00] VITALS: BP 105/80
[2020-11-13] MEDS: HYDROcodone/Acetamin 5/325 tab ORAL PRN (13:29)
[2020-11-13] MEDS: Magnesium Oxide 400mg tab ORAL SCH ×2 (13:29→17:12)
[2020-11-13] MEDS: Phospha 250 Neutral tab ORAL SCH ×2 (13:29→17:12)
[2020-11-13 16:00] VITALS: BP 105/66
--- NOTE | 2020-11-13 16:58 | NUR ---
NURSE NOTES: Reported HR [address] Coombs. No new orders at this time. Patient is stable and asymptomatic.
--- NOTE | 2020-11-13 18:24 | Internal Med Progress Note ---
Subjective Date of Service: Nov 13, 2020 Physician Name Jered Case Attending Physician Ramon Coombs MD Current Medications Medications (Trade) Dose Ordered Sig/Kylah Route PRN Reason Start Time Stop Time Status Last Admin Dose Admin Acetaminophen (Tylenol) 500 mg Q6H PRN ORAL Mild Pain 11/02/20 08:30 12/02/20 08:29 11/13/20 08:33 Acetaminophen (Tylenol) 500 mg Q6H PRN ORAL fever > 100.2 11/02/20 08:45 12/02/20 08:44 Acetaminophen/ Hydrocodone Bitart ([place] 5/325) 1 tab Q6H PRN ORAL Severe Pain (Pain Scale 7-10) 11/11/20 10:15 11/18/20 10:14 11/13/20 13:29 Allopurinol (Zyloprim) 200 mg DAILY ORAL 11/04/20 15:00 12/04/20 14:59 11/13/20 08:34 Dextrose (Dextrose 50%) 25 ml Q30M PRN IV Hypoglycemia 11/01/20 18:30 01/30/21 18:29 Dextrose (Dextrose 50%) 50 ml Q30M PRN IV Hypoglycemia 11/01/20 18:30 01/30/21 18:29 Folic Acid (Folate) 3 mg DAILY ORAL 11/03/20 13:15 12/03/20 13:14 11/13/20 08:34 Furosemide (Lasix) 20 mg DAILY IV 11/13/20 10:00 12/13/20 09:59 11/13/20 09:31 Heparin Sodium (Porcine) (Heparin 5000 units/ml) 5,000 units EVERY 12 HOURS SUBQ 11/01/20 21:00 12/16/20 20:59 11/13/20 08:36 Insulin Aspart (NovoLOG) BEFORE MEALS AND HS SUBQ 11/01/20 21:00 01/30/21 20:59 11/12/20 06:27 Magnesium Oxide (Mag-Ox 400mg) 400 mg THREE TIMES A DAY ORAL 11/13/20 13:00 12/13/20 12:59 11/13/20 17:12 Midodrine (Pro-Amatine) 10 mg Q8HR ORAL 11/02/20 14:00 01/31/21 13:59 11/13/20 13:29 Pantoprazole (Protonix) 40 mg DAILY ORAL 11/14/20 09:00 12/14/20 08:59 Phosphorus (Phospha 250 Neutral) 250 mg THREE TIMES A DAY ORAL 11/13/20 13:00 12/13/20 12:59 11/13/20 17:12 Spironolactone (Aldactone) 50 mg DAILY ORAL 11/13/20 10:00 12/13/20 09:59 11/13/20 09:31 Allergies: Coded Allergies: No Known Allergies (Unverified , 10/02/16) ROS Limited/Unobtainable: No Constitutional: Reports: no symptoms HEENT: Reports: no symptoms Cardiovascular: Reports: no symptoms Respiratory: Reports: no symptoms Gastrointestinal/Abdominal: Reports: no symptoms Genitourinary: Reports: no symptoms Neurologic/Psychiatric: Reports: no symptoms Subjective 60 YO M with history of alcohol dependence admitted with shortness of breath. Now respiratroy failure. Cover for Int Med-DR Coombs. S/P paracentesis 11/02/20 Objective Last Vital Signs Date Time Temp Pulse Resp B/P (MAP) Pulse Ox O2 Delivery O2 Flow Rate FiO2 11/13/20 16:00 98.5 113 28 105/66 (79) 91 11/13/20 09:00 Nasal Cannula 5.0 11/11/20 19:17 32 Laboratory Tests Test 11/12/20 22:01 11/13/20 05:05 POC Whole Blood Glucose 122 MG/DL (74-106) H White Blood Count 13.7 K/UL (4.8-10.8) H Red Blood Count 2.54 M/UL (4.70-6.10) L Hemoglobin 9.1 G/DL (14.2-18.0) L Hematocrit 26.8 % (42.0-52.0) L Mean Corpuscular Volume 105 FL (80-99) H Mean Corpuscular Hemoglobin 35.9 PG (27.0-31.0) H Mean Corpuscular Hemoglobin Concent 34.1 G/DL (32.0-36.0) Red Cell Distribution Width 20.9 % (11.6-14.8) H Platelet Count 283 K/UL (150-450) Mean Platelet Volume 5.7 FL (6.5-10.1) L Neutrophils (%) (Auto) 83.2 % (45.0-75.0) H Lymphocytes (%) (Auto) 8.9 % (20.0-45.0) L Monocytes (%) (Auto) 5.4 % (1.0-10.0) Eosinophils (%) (Auto) 0.9 % (0.0-3.0) Basophils (%) (Auto) 1.6 % (0.0-2.0) Sodium Level 138 MMOL/L (136-145) Potassium Level 3.8 MMOL/L (3.5-5.1) Chloride Level 102 MMOL/L (98-107) Carbon Dioxide Level 30 MMOL/L (21-32) Anion Gap 6 mmol/L (5-15) Blood Urea Nitrogen 27 mg/dL (7-18) H Creatinine 1.2 MG/DL (0.55-1.30) Estimat Glomerular Filtration Rate > 60 mL/min (>60) Glucose Level 101 MG/DL (74-106) Uric Acid 4.1 MG/DL (2.6-7.2) Calcium Level 8.5 MG/DL (8.5-10.1) Phosphorus Level 2.2 MG/DL (2.5-4.9) L Magnesium Level 1.7 MG/DL (1.8-2.4) L Total Bilirubin 0.9 MG/DL (0.2-1.0) Aspartate Amino Transf (AST/SGOT) 42 U/L (15-37) H Alanine Aminotransferase (ALT/SGPT) 11 U/L (12-78) L Alkaline Phosphatase 140 U/L (46-116) H C-Reactive Protein, Quantitative 9.5 mg/dL (0.00-0.90) H Pro-B-Type Natriuretic Peptide 2414 pg/mL (0-125) H Total Protein 6.5 G/DL (6.4-8.2) Albumin 1.6 G/DL (3.4-5.0) L Globulin 4.9 g/dL Albumin/Globulin Ratio 0.3 (1.0-2.7) L Intake and Output 11/12/20 11/13/20 19:00 07:00 Intake Total 480 ml Output Total 400 ml 350 ml Balance -400 ml 130 ml Intake Oral 480 ml Output Urine Total 400 ml 350 ml # Bowel Movements 2 1 Objective Objective General: No acute distress, awake and alert HEENT: NCAT, sclera anicteric, PERRL, EOMI. Neck: Supple, no significant jugular venous distention, Lungs: Nasal canula; Fair inspiratory effort, , no Wheeze or Rales. Heart: Regular rate and rhythm, normal S1/S2, no murmurs Abdomen: soft, nontender, +distended. positive fluid shift, bowel sound present. / Rectal: Refused and deferred. Extremities: No Cyanosis , clubbing or edema. Neuro: A&O x 3, Able to move all extremities Skin: warm, no rash Assessment/Plan Assessment/Plan Assessment/Plan Assessment/Plan Sepsis Acute Hypoxia on BiPAP >> NRB mask >> venturi mask>>nasal canula alcohol abuse Liver Cirrhosis, Fatty liver Massive ascites renal failure DM2 HTN Plan: ABX=S/P vanco and Zosyn High volume paracentesis, COVID PCR=Neg F/u BCx GI=Dr Encarnacion Nephrol=Dr Pozo S/P paracentesis 11/02/20 Jered Case MD Nov 13, 2020 18:24
--- NOTE | 2020-11-13 19:42 | NUR ---
NURSE NOTES: Hand off to Carmina DIANE. Patient is stable
--- NOTE | 2020-11-13 19:45 | NUR ---
NURSE NOTES: patient alertand oriented watching tv no pain or discomfort at this time
[2020-11-13 20:00] VITALS: BP 95/66
[2020-11-14] VITALS: BP 112/73
--- NOTE | 2020-11-14 00:19 | NUR ---
called rt to start patient on bipap fio2 30% with patient saturating at 96% patient tolerating it well
--- NOTE | 2020-11-14 01:02 | NUR ---
NURSE NOTES:patientrequested again to remove the bipap, o2 at 3l/min per n/c provided saturating at 94%
[2020-11-14 04:00] VITALS: BP 107/68
[2020-11-14] MEDS: Midodrine 10mg tab ORAL SCH ×3 (05:23→21:03)
[2020-11-14] MEDS: NovoLOG Insulin Flexpen SUBQ SCH ×4 (05:49→20:41)
--- NOTE | 2020-11-14 06:16 | NUR ---
NURSE HAND-OFF: Important Events on Shift:[] slept well o2 saturation stable with o2 canula Patient Status: [] stable Diet: [] ccho medium Pending Orders: [] Pending Results/Labs:[]cbc,bmp Pending MD notification:[] Latest Vital Signs: Temperature 97.1 , Pulse 101 , B/P 107 /68 , Respiratory Rate 28 , O2 SAT 92 , Bi-pap, O2 Flow Rate 5.0 . Vital Sign Comment: [] Latest Childs Fall Score: 70 Fall Risk: High Risk Safety Measures: Call light Within Reach, Bed Alarm Zone 2, Side Rails Side Rails x2, Bed position Low and Locked. Fall Precautions: Yellow Socks Door Sign Report given to []. Addendum: 11/14/20 at 0725 by Carmina Pedraza RN report given to tayo mock rn
[2020-11-14 08:00] VITALS: BP 117/73
[2020-11-14] MEDS: Magnesium Oxide 400mg tab ORAL SCH ×3 (08:32→17:16)
[2020-11-14] MEDS: Phospha 250 Neutral tab ORAL SCH ×3 (08:32→17:16)
[2020-11-14] MEDS: Spironolactone 50mg tab ORAL SCH (08:33)
[2020-11-14] MEDS: Allopurinol 100mg Tab ORAL SCH (08:33)
[2020-11-14] MEDS: HYDROcodone/Acetamin 5/325 tab ORAL PRN ×2 (08:33→14:30)
[2020-11-14] MEDS: Heparin 5000 units/ml inj SUBQ SCH ×2 (08:34→21:04)
[2020-11-14 09:03] LABS: BASOPHILS % (AUTO) 1.2 % (0.0-2.0); EOSINOPHILS % (AUTO) 0.9 % (0.0-3.0); HEMATOCRIT 26.7 % (42.0-52.0); HEMOGLOBIN 8.6 G/DL (14.2-18.0); LYMPHOCYTES % (AUTO) 9.1 % (20.0-45.0); MEAN CORPUSCULAR VOLUME 107 FL (80-99); MONOCYTES % (AUTO) 8.3 % (1.0-10.0); NEUTROPHILS % (AUTO) 80.5 % (45.0-75.0); PLATELET COUNT 325 K/UL (150-450); RED BLOOD COUNT 2.49 M/UL (4.70-6.10); RED CELL DISTRIBUTION WIDTH 20.1 % (11.6-14.8); WHITE BLOOD COUNT 13.3 K/UL (4.8-10.8)
--- NOTE | 2020-11-14 09:14 | General Progress Note ---
Subjective ROS Limited/Unobtainable: No Allergies: Coded Allergies: No Known Allergies (Unverified , 10/02/16) Objective Last 24 Hour Vital Signs Date Time Temp Pulse Resp B/P (MAP) Pulse Ox O2 Delivery O2 Flow Rate FiO2 11/14/20 08:19 95 18 94 Nasal Cannula 3.0 32 11/14/20 08:05 93 Nasal Cannula 3.0 32 11/14/20 04:00 97.1 101 28 107/68 (81) 92 11/14/20 00:14 106 31 96 30 11/14/20 00:00 97.5 112 28 112/73 (86) 94 11/13/20 20:43 Nasal Cannula 5.0 11/13/20 20:00 98.1 107 22 95/66 (76) 94 11/13/20 19:45 93 Nasal Cannula 3.0 32 11/13/20 19:45 106 18 93 Nasal Cannula 3.0 32 11/13/20 16:00 98.5 113 28 105/66 (79) 91 11/13/20 12:00 98.1 118 24 105/80 (88) 93 Intake and Output 11/13/20 11/14/20 19:00 07:00 Intake Total 650 ml 480 ml Output Total 225 ml Balance 425 ml 480 ml Intake Oral 650 ml 480 ml Output Urine Total 225 ml # Voids 1 3 # Bowel Movements 1 Laboratory Tests 11/14/20 07:04: White Blood Count [Pending], Red Blood Count [Pending], Hemoglobin [Pending], Hematocrit [Pending], Mean Corpuscular Volume [Pending], Mean Corpuscular Hemoglobin [Pending], Mean Corpuscular Hemoglobin Concent [Pending], Red Cell Distribution Width [Pending], Platelet Count [Pending], Mean Platelet Volume [Pending], Neutrophils (%) (Auto) [Pending], Lymphocytes (%) (Auto) [Pending], Monocytes (%) (Auto) [Pending], Eosinophils (%) (Auto) [Pending], Basophils (%) (Auto) [Pending], Sodium Level [Pending], Potassium Level [Pending], Chloride Level [Pending], Carbon Dioxide Level [Pending], Blood Urea Nitrogen [Pending], Creatinine [Pending], Estimat Glomerular Filtration Rate [Pending], Glucose Level [Pending], Calcium Level [Pending], Total Bilirubin [Pending], Aspartate Amino Transf (AST/SGOT) [Pending], Alanine Aminotransferase (ALT/SGPT) [Pending], Alkaline Phosphatase [Pending], Total Protein [Pending], Albumin [Pending], Globulin [Pending] Height (Feet): 6 Height (Inches): 1.00 Weight (Pounds): 200 General Appearance: no apparent distress EENT: normal ENT inspection Neck: supple Cardiovascular: normal rate Respiratory/Chest: decreased breath sounds Abdomen: hypoactive bowel sounds Extremities: non-tender Assessment/Plan Problem List: (1) Cirrhosis ICD Codes: K74.60 - Unspecified cirrhosis of liver SNOMED: 94663497 (2) Hepatic encephalopathy ICD Codes: K72.90 - Hepatic failure, unspecified without coma; R65.20 - Severe sepsis without septic shock SNOMED: 34472602 (3) Hypokalemia ICD Codes: E87.6 - Hypokalemia; R65.20 - Severe sepsis without septic shock SNOMED: 96656954 (4) Ascites ICD Codes: R18.8 - Other ascites SNOMED: 819685625 (5) Severe sepsis ICD Codes: A41.9 - Sepsis, unspecified organism; R65.20 - Severe sepsis without septic shock SNOMED: 42846477 (6) AMS (altered mental status) ICD Codes: R41.82 - Altered mental status, unspecified SNOMED: 333086351 Assessment/Plan: Assessment/Plan Problem List: (1) Cirrhosis ICD Codes: K74.60 - Unspecified cirrhosis of liver SNOMED: (2) Hepatic encephalopathy ICD Codes: K72.90 - Hepatic failure, unspecified without coma; R65.20 - Severe sepsis without septic shock SNOMED: 45456249 (3) Hypokalemia ICD Codes: E87.6 - Hypokalemia; R65.20 - Severe sepsis without septic shock SNOMED: 93949537 (4) Ascites ICD Codes: R18.8 - Other ascites SNOMED: 053373435 (5) Severe sepsis ICD Codes: A41.9 - Sepsis, unspecified organism; R65.20 - Severe sepsis without septic shock SNOMED: 79993970 (6) AMS (altered mental status) ICD Codes: R41.82 - Altered mental status, unspecified SNOMED: 048951522 Assessment/Plan: po as tolerated Elevate HOB lactulose PPI f/u ammonia level fu hepatitis panel>>> neg s/p repeat paracentesis 7 lit lasix aldactone repeat labs albumin Mejia Encarnacion MD Nov 14, 2020 09:14
[2020-11-14 09:34] LABS: ALANINE AMINOTRANSFERASE 9 U/L (12-78); ALBUMIN 1.7 G/DL (3.4-5.0); ALBUMIN/GLOBULIN RATIO 0.4 (1.0-2.7); ALKALINE PHOSPHATASE 127 U/L (46-116); ANION GAP 7 mmol/L (5-15); ASPARTATE AMINO TRANSFERASE 37 U/L (15-37); BLOOD UREA NITROGEN 26 mg/dL (7-18); CALCIUM 7.9 MG/DL (8.5-10.1); CARBON DIOXIDE 30 MMOL/L (21-32); CHLORIDE 102 MMOL/L (98-107); CREATININE 1.2 MG/DL (0.55-1.30); POTASSIUM 3.8 MMOL/L (3.5-5.1); SODIUM 139 MMOL/L (136-145)
--- NOTE | 2020-11-14 10:36 | NUR ---
CASE MANAGEMENT:REVIEW 11/14/20 SI: SEPSIS. HYPOXIA. ETOH ABUSE. ASCITES S/P PARACENTESIS~ 10.2 L REMOVED 97.7 104 20 117/73 94% ON 3L/NC WBC+13.3 H/H-8.6/26.7 BUN+26 IS: PROTONIX PO QD PHOSPHA PO TID MAG OXIDE PO TID ALDACTONE PO QD IV LASIX QD ALLOPURINOL PO QD FOLATE PO QD MIDODRINE PO Q8HRS HEPARIN SQ Q12 : MED/SURG STATUS DCP: FROM HOME PLAN: NEED TO WEAN TO ROOM AIR...WILL NOT BE ABLE TO OBTAIN OXYGEN FOR HOME USE
--- NOTE | 2020-11-14 10:43 | Nephrology Progress Note ---
Assessment/Plan Problem List: (1) Renal failure (ARF), acute on chronic (2) Electrolyte imbalance (3) Hypokalemia (4) Cirrhosis (5) DMII (diabetes mellitus, type 2) (6) Anemia (7) HTN (hypertension) Assessment Renal failure most likely acute on chronic Electrolyte imbalances, hypokalemia Sepsis Hepatic encephalopathy, ascites, fatty liver Anemia History of EtOH abuse, history of tobacco abuse, history of drug abuse Diabetes mellitus type 2 Hypertension Lymphopenia, leukocytosis, hypoxia Plan November 14: Labs reviewed. Renal parameters are stable continue per current management. Vitamin D supplement given. November 13: Labs reviewed. Normal renal parameters. Abnormal electrolytes noted and addressed. Vitamin D level results still pending November 12: Labs reviewed. Serum creatinine now within normal limits. Much improved from renal standpoint of view. November 11: Labs reviewed. Serum creatinine 1.6. Stable from renal standpoint reviewed. November 10: Labs reviewed. Serum creatinine lowered to 1.9. Continue to monitor renal parameters. Magnesium supplement ordered. November 09: No CHEM panel drawn today. Will DC Hernandez due to pain in the urethra. We will continue to monitor renal parameters. Continue per consultants. November 08: Labs reviewed. Serum creatinine 2.3 unchanged. Electrolytes within normal limit. Continue per consultants. November 07: Labs reviewed. Serum creatinine down to 2.3. Continue to monitor electrolytes. Low magnesium addressed. November 06: Labs reviewed. Serum creatinine 2.5 unchanged. Continue per consultants. November 05: Labs reviewed. Serum creatinine plateauing. Status quo. Electrolyte acceptable. Now on oxygen by cannula. Continue per consultants. November 04 labs reviewed. Patient full code. On Venturi mask. Low potassium addressed. Serum creatinine rising. Continue to monitor renal parameters. Allopurinol initiated November 03: Labs reviewed. Medication list reviewed. Abnormal electrolyte addressed. Continue monitor renal parameters. Continue per consultants. Previously: Trial of 3% saline and albumin bolus Potassium supplement Monitor renal parameters, ammonia, electrolytes ordered Subjective ROS Limited/Unobtainable: No Constitutional: Reports: malaise Objective Objective Last 24 Hour Vital Signs Date Time Temp Pulse Resp B/P (MAP) Pulse Ox O2 Delivery O2 Flow Rate FiO2 11/14/20 08:19 95 18 94 Nasal Cannula 3.0 32 11/14/20 08:05 93 Nasal Cannula 3.0 32 11/14/20 08:00 97.7 104 20 117/73 (88) 92 11/14/20 04:00 97.1 101 28 107/68 (81) 92 11/14/20 00:14 106 31 96 30 11/14/20 00:00 97.5 112 28 112/73 (86) 94 11/13/20 20:43 Nasal Cannula 5.0 11/13/20 20:00 98.1 107 22 95/66 (76) 94 11/13/20 19:45 93 Nasal Cannula 3.0 32 11/13/20 19:45 106 18 93 Nasal Cannula 3.0 32 11/13/20 16:00 98.5 113 28 105/66 (79) 91 11/13/20 12:00 98.1 118 24 105/80 (88) 93 Intake and Output 11/13/20 11/14/20 19:00 07:00 Intake Total 650 ml 480 ml Output Total 225 ml Balance 425 ml 480 ml Intake Oral 650 ml 480 ml Output Urine Total 225 ml # Voids 1 3 # Bowel Movements 1 Current Medications Medications (Trade) Dose Ordered Sig/Kylah Route PRN Reason Start Time Stop Time Status Last Admin Dose Admin Acetaminophen (Tylenol) 500 mg Q6H PRN ORAL Mild Pain 11/02/20 08:30 12/02/20 08:29 11/13/20 08:33 Acetaminophen (Tylenol) 500 mg Q6H PRN ORAL fever > 100.2 11/02/20 08:45 12/02/20 08:44 Acetaminophen/ Hydrocodone Bitart ([place] 5/325) 1 tab Q6H PRN ORAL Severe Pain (Pain Scale 7-10) 11/11/20 10:15 11/18/20 10:14 11/14/20 08:33 Allopurinol (Zyloprim) 200 mg DAILY ORAL 11/04/20 15:00 12/04/20 14:59 11/14/20 08:33 Dextrose (Dextrose 50%) 25 ml Q30M PRN IV Hypoglycemia 11/01/20 18:30 01/30/21 18:29 Dextrose (Dextrose 50%) 50 ml Q30M PRN IV Hypoglycemia 11/01/20 18:30 01/30/21 18:29 Folic Acid (Folate) 3 mg DAILY ORAL 11/03/20 13:15 12/03/20 13:14 11/14/20 08:32 Furosemide (Lasix) 20 mg DAILY IV 11/13/20 10:00 12/13/20 09:59 11/14/20 08:32 Heparin Sodium (Porcine) (Heparin 5000 units/ml) 5,000 units EVERY 12 HOURS SUBQ 11/01/20 21:00 12/16/20 20:59 11/14/20 08:34 Insulin Aspart (NovoLOG) BEFORE MEALS AND HS SUBQ 11/01/20 21:00 01/30/21 20:59 11/12/20 06:27 Magnesium Oxide (Mag-Ox 400mg) 400 mg THREE TIMES A DAY ORAL 11/13/20 13:00 12/13/20 12:59 11/14/20 08:32 Midodrine (Pro-Amatine) 10 mg Q8HR ORAL 11/02/20 14:00 01/31/21 13:59 11/14/20 05:23 Pantoprazole (Protonix) 40 mg DAILY ORAL 11/14/20 09:00 12/14/20 08:59 11/14/20 08:32 Phosphorus (Phospha 250 Neutral) 250 mg THREE TIMES A DAY ORAL 11/13/20 13:00 12/13/20 12:59 11/14/20 08:32 Spironolactone (Aldactone) 50 mg DAILY ORAL 11/13/20 10:00 12/13/20 09:59 11/14/20 08:33 Laboratory Tests 11/14/20 07:04: White Blood Count 13.3H, Red Blood Count 2.49L, Hemoglobin 8.6L, Hematocrit 26.7L, Mean Corpuscular Volume 107H, Mean Corpuscular Hemoglobin 34.7H, Mean Corpuscular Hemoglobin Concent 32.4, Red Cell Distribution Width 20.1H, Platelet Count 325, Mean Platelet Volume 5.4L, Neutrophils (%) (Auto) 80.5H, Lymphocytes (%) (Auto) 9.1L, Monocytes (%) (Auto) 8.3, Eosinophils (%) (Auto) 0.9, Basophils (%) (Auto) 1.2, Sodium Level 139, Potassium Level 3.8, Chloride Level 102, Carbon Dioxide Level 30, Anion Gap 7, Blood Urea Nitrogen 26H, Creatinine 1.2, Estimat Glomerular Filtration Rate > 60, Glucose Level 99, Calcium Level 7.9L, Total Bilirubin 1.0, Aspartate Amino Transf (AST/SGOT) 37, Alanine Aminotr ansferase (ALT/SGPT) 9L, Alkaline Phosphatase 127H, Total Protein 6.2L, Albumin 1.7L, Globulin 4.5, Albumin/Globulin Ratio 0.4L Height (Feet): 6 Height (Inches): 1.00 Weight (Pounds): 200 General Appearance: no apparent distress Cardiovascular: tachycardia Respiratory/Chest: decreased breath sounds Abdomen: distended Kalin Pozo MD Nov 14, 2020 10:43
[2020-11-14] MEDS ORDERED: Vitamin D 50,000 units cap ORAL SCH (11:30)
[2020-11-14 12:00] VITALS: BP 102/61
--- NOTE | 2020-11-14 13:04 | Internal Med Progress Note ---
Subjective Date of Service: Nov 14, 2020 Physician Name Jered Case Attending Physician Ramon Coombs MD Current Medications Medications (Trade) Dose Ordered Sig/Kylah Route PRN Reason Start Time Stop Time Status Last Admin Dose Admin Acetaminophen (Tylenol) 500 mg Q6H PRN ORAL Mild Pain 11/02/20 08:30 12/02/20 08:29 11/13/20 08:33 Acetaminophen (Tylenol) 500 mg Q6H PRN ORAL fever > 100.2 11/02/20 08:45 12/02/20 08:44 Acetaminophen/ Hydrocodone Bitart ([place] 5/325) 1 tab Q6H PRN ORAL Severe Pain (Pain Scale 7-10) 11/11/20 10:15 11/18/20 10:14 11/14/20 08:33 Allopurinol (Zyloprim) 200 mg DAILY ORAL 11/04/20 15:00 12/04/20 14:59 11/14/20 08:33 Dextrose (Dextrose 50%) 25 ml Q30M PRN IV Hypoglycemia 11/01/20 18:30 01/30/21 18:29 Dextrose (Dextrose 50%) 50 ml Q30M PRN IV Hypoglycemia 11/01/20 18:30 01/30/21 18:29 Folic Acid (Folate) 3 mg DAILY ORAL 11/03/20 13:15 12/03/20 13:14 11/14/20 08:32 Furosemide (Lasix) 20 mg DAILY IV 11/13/20 10:00 12/13/20 09:59 11/14/20 08:32 Heparin Sodium (Porcine) (Heparin 5000 units/ml) 5,000 units EVERY 12 HOURS SUBQ 11/01/20 21:00 12/16/20 20:59 11/14/20 08:34 Insulin Aspart (NovoLOG) BEFORE MEALS AND HS SUBQ 11/01/20 21:00 01/30/21 20:59 11/12/20 06:27 Magnesium Oxide (Mag-Ox 400mg) 400 mg THREE TIMES A DAY ORAL 11/13/20 13:00 12/13/20 12:59 11/14/20 12:36 Midodrine (Pro-Amatine) 10 mg Q8HR ORAL 11/02/20 14:00 01/31/21 13:59 11/14/20 05:23 Pantoprazole (Protonix) 40 mg DAILY ORAL 11/14/20 09:00 12/14/20 08:59 11/14/20 08:32 Phosphorus (Phospha 250 Neutral) 250 mg THREE TIMES A DAY ORAL 11/13/20 13:00 12/13/20 12:59 11/14/20 12:36 Spironolactone (Aldactone) 50 mg DAILY ORAL 11/13/20 10:00 12/13/20 09:59 11/14/20 08:33 Vitamin D (Vitamin D) 5,000 unit DAILY ORAL 11/16/20 09:00 12/16/20 08:59 Allergies: Coded Allergies: No Known Allergies (Unverified , 10/02/16) ROS Limited/Unobtainable: No Constitutional: Reports: no symptoms HEENT: Reports: no symptoms Cardiovascular: Reports: no symptoms Respiratory: Reports: no symptoms Gastrointestinal/Abdominal: Reports: no symptoms Genitourinary: Reports: no symptoms Neurologic/Psychiatric: Reports: no symptoms Subjective 60 YO M with history of alcohol dependence admitted with shortness of breath. Now respiratroy failure. Cover for Int Med-DR Coombs. S/P paracentesis 11/02/20 Objective Last Vital Signs Date Time Temp Pulse Resp B/P (MAP) Pulse Ox O2 Delivery O2 Flow Rate FiO2 11/14/20 12:00 97.2 92 19 102/61 (75) 92 11/14/20 08:19 Nasal Cannula 3.0 32 Laboratory Tests Test 11/14/20 07:04 White Blood Count 13.3 K/UL (4.8-10.8) H Red Blood Count 2.49 M/UL (4.70-6.10) L Hemoglobin 8.6 G/DL (14.2-18.0) L Hematocrit 26.7 % (42.0-52.0) L Mean Corpuscular Volume 107 FL (80-99) H Mean Corpuscular Hemoglobin 34.7 PG (27.0-31.0) H Mean Corpuscular Hemoglobin Concent 32.4 G/DL (32.0-36.0) Red Cell Distribution Width 20.1 % (11.6-14.8) H Platelet Count 325 K/UL (150-450) Mean Platelet Volume 5.4 FL (6.5-10.1) L Neutrophils (%) (Auto) 80.5 % (45.0-75.0) H Lymphocytes (%) (Auto) 9.1 % (20.0-45.0) L Monocytes (%) (Auto) 8.3 % (1.0-10.0) Eosinophils (%) (Auto) 0.9 % (0.0-3.0) Basophils (%) (Auto) 1.2 % (0.0-2.0) Sodium Level 139 MMOL/L (136-145) Potassium Level 3.8 MMOL/L (3.5-5.1) Chloride Level 102 MMOL/L (98-107) Carbon Dioxide Level 30 MMOL/L (21-32) Anion Gap 7 mmol/L (5-15) Blood Urea Nitrogen 26 mg/dL (7-18) H Creatinine 1.2 MG/DL (0.55-1.30) Estimat Glomerular Filtration Rate > 60 mL/min (>60) Glucose Level 99 MG/DL (74-106) Calcium Level 7.9 MG/DL (8.5-10.1) L Total Bilirubin 1.0 MG/DL (0.2-1.0) Aspartate Amino Transf (AST/SGOT) 37 U/L (15-37) Alanine Aminotransferase (ALT/SGPT) 9 U/L (12-78) L Alkaline Phosphatase 127 U/L (46-116) H Total Protein 6.2 G/DL (6.4-8.2) L Albumin 1.7 G/DL (3.4-5.0) L Globulin 4.5 g/dL Albumin/Globulin Ratio 0.4 (1.0-2.7) L Intake and Output 11/13/20 11/14/20 19:00 07:00 Intake Total 650 ml 480 ml Output Total 225 ml Balance 425 ml 480 ml Intake Oral 650 ml 480 ml Output Urine Total 225 ml # Voids 1 3 # Bowel Movements 1 Objective Objective General: No acute distress, awake and alert HEENT: NCAT, sclera anicteric, PERRL, EOMI. Neck: Supple, no significant jugular venous distention, Lungs: Nasal canula; Fair inspiratory effort, , no Wheeze or Rales. Heart: Regular rate and rhythm, normal S1/S2, no murmurs Abdomen: soft, nontender, +distended. positive fluid shift, bowel sound present. / Rectal: Refused and deferred. Extremities: No Cyanosis , clubbing or edema. Neuro: A&O x 3, Able to move all extremities Skin: warm, no rash Assessment/Plan Assessment/Plan Assessment/Plan Assessment/Plan Sepsis Acute Hypoxia on BiPAP >> NRB mask >> venturi mask>>nasal canula alcohol abuse Liver Cirrhosis, Fatty liver Massive ascites renal failure DM2 HTN Plan: ABX=S/P vanco and Zosyn High volume paracentesis, COVID PCR=Neg F/u BCx GI=Dr Encarnacion Nephrol=Dr Pozo S/P paracentesis 11/02/20 Jered Case MD Nov 14, 2020 13:04
--- NOTE | 2020-11-14 13:40 | NUR ---
[employer] NOTE SW met w/ pt and evaluated home safety. Pt was residing alone at [address] [place] [id number]. PT received lump sum of fpc income. PT has one adult son. PT does not have a caregiver. PT did not discloser his budget for housing. Pt reports he will not able to return to his current apartment. Per pt, the landlord made a report that he is unable to live by himself. PT shared that he has hx of alcoholism and depression that he did not provide appropriate self-care at home and that he did not clean his apartment and did not trash for 6 months. PT reported he drinks a pint or one 750ml bottle of hard liquor daily. PT has fair insight of his substance abuse issue. SW explained negative impact of ETOH abuse in his health and lifestyle. PT informed this SW that he participated various substance abuse rehab programs and AA meetings in the past. Thus, pt does not consider rehab programs at this time. Pt wants to explore assisted living facilities. SW provided the the list of assisted living facilities and encouraged pt to discuss and get a quote. Pt reports his older other living in [place] will deliver his cell phone today. SW encouraged pt to receive outpatient mental health services. PT will consider the referral for mental health service. PT reports he uses a cane. SW will continue to F/U. Emergency contact: Edmond Nicole (son) [phone] MS plan: Assisted Living vs board and care vs independent living facilities Addendum: 11/14/20 at 1528 by ALANA ARMENDARIZ Pt reports group setting is fine w/ him. SW provided the list of independent living facilities and board and cares. KALA will continue to F/U.
[2020-11-14 16:00] VITALS: BP 113/75
--- NOTE | 2020-11-14 19:00 | NUR ---
NURSE HAND-OFF: Important Events on Shift: No new event Patient Status: stable Diet: CCHO (M) Pending Orders: n/a Pending Results/Labs:n/a Pending MD notification:n/a Latest Vital Signs: Temperature 98.5 , Pulse 106 , B/P 113 /75 , Respiratory Rate 18 , O2 SAT 93 , Bi-pap, O2 Flow Rate 3.0 . Vital Sign Comment: stable Latest Childs Fall Score: 70 Fall Risk: High Risk Safety Measures: Call light Within Reach, Bed Alarm Zone 2, Side Rails Side Rails x2, Bed position Low and Locked. Fall Precautions: Yellow Socks Door Sign Report given to ROXI Carty.
--- NOTE | 2020-11-14 19:58 | NUR ---
NURSE NOTES: Received report from Pb DIANE. Patient is awake, alert and oriented x4. On NC 3L, breathing is even and unlabored. No complains of pain or distress noted. Condom cath intact and draining well. Sacral and bilateral heels optifoam intact. IV left FA intact and patent with no bleeding noted. Bed low and locked. Call light within reach.
[2020-11-14 20:00] VITALS: BP 114/72
[2020-11-15] VITALS: BP 113/75
[2020-11-15 04:00] VITALS: BP 110/73
[2020-11-15] MEDS: Midodrine 10mg tab ORAL SCH ×3 (05:48→22:02)
[2020-11-15] MEDS: NovoLOG Insulin Flexpen SUBQ SCH ×4 (05:56→20:37)
[2020-11-15 06:31] LABS: BASOPHILS % (AUTO) 0.6 % (0.0-2.0); EOSINOPHILS % (AUTO) 1.7 % (0.0-3.0); HEMATOCRIT 27.9 % (42.0-52.0); HEMOGLOBIN 9.1 G/DL (14.2-18.0); LYMPHOCYTES % (AUTO) 9.6 % (20.0-45.0); MEAN CORPUSCULAR VOLUME 106 FL (80-99); MONOCYTES % (AUTO) 7.4 % (1.0-10.0); NEUTROPHILS % (AUTO) 80.7 % (45.0-75.0); PLATELET COUNT 309 K/UL (150-450); RED BLOOD COUNT 2.62 M/UL (4.70-6.10); RED CELL DISTRIBUTION WIDTH 19.9 % (11.6-14.8)
[2020-11-15 06:53] LABS: ALANINE AMINOTRANSFERASE 16 U/L (12-78); ALBUMIN 1.6 G/DL (3.4-5.0); ALBUMIN/GLOBULIN RATIO 0.3 (1.0-2.7); ALKALINE PHOSPHATASE 138 U/L (46-116); ANION GAP 7 mmol/L (5-15); ASPARTATE AMINO TRANSFERASE 49 U/L (15-37); BILIRUBIN,TOTAL 0.8 MG/DL (0.2-1.0); BLOOD UREA NITROGEN 26 mg/dL (7-18); CALCIUM 7.9 MG/DL (8.5-10.1); CARBON DIOXIDE 31 MMOL/L (21-32); CHLORIDE 101 MMOL/L (98-107); CREATININE 1.2 MG/DL (0.55-1.30); POTASSIUM 4.1 MMOL/L (3.5-5.1); SODIUM 139 MMOL/L (136-145)
[2020-11-15 07:07] LABS: PHOSPHORUS 3.6 MG/DL (2.5-4.9)
--- NOTE | 2020-11-15 07:27 | NUR ---
NURSE HAND-OFF: Important Events on Shift: No new event Patient Status: Stable Diet: CCHO medium Pending Orders: [] Pending Results/Labs:[] Pending MD notification:[] Latest Vital Signs: Temperature 97.3 , Pulse 92 , B/P 110 /73 , Respiratory Rate 26 , O2 SAT 96 , Bi-pap, O2 Flow Rate 3.0 . Vital Sign Comment: VS stable Latest Childs Fall Score: 70 Fall Risk: High Risk Safety Measures: Call light Within Reach, Bed Alarm Zone 2, Side Rails Side Rails x2, Bed position Low and Locked. Fall Precautions: Yellow Socks Door Sign Report given to Pb DIANE.
--- NOTE | 2020-11-15 07:30 | NUR ---
NURSE NOTES: Received report from ROXI Catry. Rounding done with outgoing nurse. Pt a/o x 4, in bed. No SOB noted with NC 3L/min. Denies any pain at this time. Condom catheter is in placed. Lt FA IV is in placed, intact. Ascites still noted. Bed in lowest position, call light within reach. Will continue to monitor.
[2020-11-15 08:00] VITALS: BP 108/71
[2020-11-15] MEDS: Magnesium Oxide 400mg tab ORAL SCH ×3 (08:06→17:15)
--- NOTE | 2020-11-15 08:06 | Infectious Diseases Prog Note ---
Assessment/Plan 60yo M with: Sepsis Afebrile Hypoxia on BiPAP >> NRB mask >> venti mask Leukocytosis to 14, improving Lymphopenia 11/01 BCx NTD COVID PCR neg CXR: Elevated right hemidiaphragm. Possible right basilar airspace disease and right effusion. CTH: No acute process EtOH abuse Cirrhosis, Fatty liver Masive ascites Elevated AST to 48 Acute hep panel neg 11/01 CT A/P: CIRRHOSIS WITH LARGE AMOUNT OF ASCITES. SPLENIC GRANULOMAS. SLUDGE IN THE GALLBLADDER. SMALL RIGHT PLEURAL EFFUSION WITH COMPRESSIVE ATELECTASIS RIGHT LOWER LOBE. ELEVATED RIGHT HEMIDIAPHRAGM. 11/02 Paracentesis, 10.2L removed 838 RBC, 142 WBC, 2%PMN, 94%Hamblen's Cx - NTD DAVIDE vs CKD, Cr 2.4, improving HIV screen neg PMH: EtOH abuse, stopped drinking in Sep 2020 Fatty liver DM2 HTN Plan: Cont to monitor off abx Trend WBC, overall stable/improving off abx 11/11 SP Zosyn #10 11/03 SP vanco #2 Monitor CBC/CMP Monitor temp curve, hemodynamics Monitor resp status D/w RN Thank you for this consult. [facility] will continue to follow. Subjective Allergies: Coded Allergies: No Known Allergies (Unverified , 10/02/16) AF NAD on 3L NC WBC 13, improving off abx Wants to get up and walk around Doing ok Objective Last 24 Hour Vital Signs Date Time Temp Pulse Resp B/P (MAP) Pulse Ox O2 Delivery O2 Flow Rate FiO2 11/15/20 08:00 98.6 88 20 108/71 (83) 96 11/15/20 04:00 97.3 92 26 110/73 (85) 96 11/15/20 00:00 97.2 94 26 113/75 (88) 96 11/14/20 21:00 Nasal Cannula 3.0 11/14/20 20:00 98.4 100 24 114/72 (86) 94 11/14/20 19:03 93 Nasal Cannula 3.0 32 11/14/20 16:00 98.5 106 18 113/75 (88) 94 11/14/20 12:00 97.2 92 19 102/61 (75) 92 11/14/20 09:00 Nasal Cannula 3.0 11/14/20 08:19 95 18 94 Nasal Cannula 3.0 32 Height (Feet): 6 Height (Inches): 1.00 Weight (Pounds): 200 Gen: NAD HEENT: NCAT, EOMI Pulm: BL chest rise Abd: Distended, soft, +fluid wave Ext: No c/c/e Neuro: Awake, interactive Laboratory Tests Test 11/15/20 05:00 White Blood Count 13.0 K/UL (4.8-10.8) H Red Blood Count 2.62 M/UL (4.70-6.10) L Hemoglobin 9.1 G/DL (14.2-18.0) L Hematocrit 27.9 % (42.0-52.0) L Mean Corpuscular Volume 106 FL (80-99) H Mean Corpuscular Hemoglobin 34.8 PG (27.0-31.0) H Mean Corpuscular Hemoglobin Concent 32.8 G/DL (32.0-36.0) Red Cell Distribution Width 19.9 % (11.6-14.8) H Platelet Count 309 K/UL (150-450) Mean Platelet Volume 5.3 FL (6.5-10.1) L Neutrophils (%) (Auto) 80.7 % (45.0-75.0) H Lymphocytes (%) (Auto) 9.6 % (20.0-45.0) L Monocytes (%) (Auto) 7.4 % (1.0-10.0) Eosinophils (%) (Auto) 1.7 % (0.0-3.0) Basophils (%) (Auto) 0.6 % (0.0-2.0) Sodium Level 139 MMOL/L (136-145) Potassium Level 4.1 MMOL/L (3.5-5.1) Chloride Level 101 MMOL/L (98-107) Carbon Dioxide Level 31 MMOL/L (21-32) Anion Gap 7 mmol/L (5-15) Blood Urea Nitrogen 26 mg/dL (7-18) H Creatinine 1.2 MG/DL (0.55-1.30) Estimat Glomerular Filtration Rate > 60 mL/min (>60) Glucose Level 104 MG/DL (74-106) Calcium Level 7.9 MG/DL (8.5-10.1) L Phosphorus Level 3.6 MG/DL (2.5-4.9) Magnesium Level 1.4 MG/DL (1.8-2.4) L Total Bilirubin 0.8 MG/DL (0.2-1.0) Aspartate Amino Transf (AST/SGOT) 49 U/L (15-37) H Alanine Aminotransferase (ALT/SGPT) 16 U/L (12-78) Alkaline Phosphatase 138 U/L (46-116) H C-Reactive Protein, Quantitative 9.9 mg/dL (0.00-0.90) H Total Protein 6.6 G/DL (6.4-8.2) Albumin 1.6 G/DL (3.4-5.0) L Globulin 5.0 g/dL Albumin/Globulin Ratio 0.3 (1.0-2.7) L Current Medications Medications (Trade) Dose Ordered Sig/Kylah Route PRN Reason Start Time Stop Time Status Last Admin Dose Admin Acetaminophen (Tylenol) 500 mg Q6H PRN ORAL Mild Pain 11/02/20 08:30 12/02/20 08:29 11/13/20 08:33 Acetaminophen (Tylenol) 500 mg Q6H PRN ORAL fever > 100.2 11/02/20 08:45 12/02/20 08:44 Acetaminophen/ Hydrocodone Bitart ([place] 5/325) 1 tab Q6H PRN ORAL Severe Pain (Pain Scale 7-10) 11/11/20 10:15 11/18/20 10:14 11/14/20 14:30 Allopurinol (Zyloprim) 200 mg DAILY ORAL 11/04/20 15:00 12/04/20 14:59 11/14/20 08:33 Dextrose (Dextrose 50%) 25 ml Q30M PRN IV Hypoglycemia 11/01/20 18:30 01/30/21 18:29 Dextrose (Dextrose 50%) 50 ml Q30M PRN IV Hypoglycemia 11/01/20 18:30 01/30/21 18:29 Folic Acid (Folate) 3 mg DAILY ORAL 11/03/20 13:15 12/03/20 13:14 11/14/20 08:32 Furosemide (Lasix) 20 mg DAILY IV 11/13/20 10:00 12/13/20 09:59 11/14/20 08:32 Heparin Sodium (Porcine) (Heparin 5000 units/ml) 5,000 units EVERY 12 HOURS SUBQ 11/01/20 21:00 3/14/21 20:59 11/14/20 21:04 Insulin Aspart (NovoLOG) BEFORE MEALS AND HS SUBQ 11/01/20 21:00 01/30/21 20:59 11/12/20 06:27 Magnesium Oxide (Mag-Ox 400mg) 400 mg THREE TIMES A DAY ORAL 11/13/20 13:00 12/13/20 12:59 11/14/20 17:16 Midodrine (Pro-Amatine) 10 mg Q8HR ORAL 11/02/20 14:00 01/31/21 13:59 11/14/20 21:03 Pantoprazole (Protonix) 40 mg DAILY ORAL 11/14/20 09:00 12/14/20 08:59 11/14/20 08:32 Phosphorus (Phospha 250 Neutral) 250 mg THREE TIMES A DAY ORAL 11/13/20 13:00 12/13/20 12:59 11/14/20 17:16 Spironolactone (Aldactone) 50 mg DAILY ORAL 11/13/20 10:00 12/13/20 09:59 11/14/20 08:33 Vitamin D (Vitamin D) 5,000 unit DAILY ORAL 11/16/20 09:00 12/16/20 08:59 Viviana Casper M.D. Nov 15, 2020 08:06
[2020-11-15] MEDS: HYDROcodone/Acetamin 5/325 tab ORAL PRN ×2 (08:07→22:04)
[2020-11-15] MEDS: Allopurinol 100mg Tab ORAL SCH (08:07)
[2020-11-15] MEDS: Spironolactone 50mg tab ORAL SCH (08:08)
[2020-11-15] MEDS: Phospha 250 Neutral tab ORAL SCH ×3 (08:08→17:15)
[2020-11-15] MEDS: Heparin 5000 units/ml inj SUBQ SCH ×2 (08:09→20:37)
--- NOTE | 2020-11-15 10:20 | NUR ---
PRELIM DC PLANNING SW spoke w/ Eve from [facility] [phone], and confirmed that she accepts pt w/ home oxygen and a cane. [facility] [address], [place] [address] SW will continue to F/U and discuss w/ pt.
[2020-11-15 12:00] VITALS: BP 111/72
--- NOTE | 2020-11-15 12:33 | Nephrology Progress Note ---
Assessment/Plan Problem List: (1) Renal failure (ARF), acute on chronic (2) Electrolyte imbalance (3) Hypokalemia (4) Cirrhosis (5) DMII (diabetes mellitus, type 2) (6) Anemia (7) HTN (hypertension) Assessment Renal failure most likely acute on chronic Electrolyte imbalances, hypokalemia Sepsis Hepatic encephalopathy, ascites, fatty liver Anemia History of EtOH abuse, history of tobacco abuse, history of drug abuse Diabetes mellitus type 2 Hypertension Lymphopenia, leukocytosis, hypoxia Plan November 15: Labs reviewed. Low magnesium addressed. Continue per current management. November 14: Labs reviewed. Renal parameters are stable continue per current management. Vitamin D supplement given. November 13: Labs reviewed. Normal renal parameters. Abnormal electrolytes noted and addressed. Vitamin D level results still pending November 12: Labs reviewed. Serum creatinine now within normal limits. Much improved from renal standpoint of view. November 11: Labs reviewed. Serum creatinine 1.6. Stable from renal standpoint reviewed. November 10: Labs reviewed. Serum creatinine lowered to 1.9. Continue to monitor renal parameters. Magnesium supplement ordered. November 09: No CHEM panel drawn today. Will DC Hernandez due to pain in the urethra. We will continue to monitor renal parameters. Continue per consulta nts. November 08: Labs reviewed. Serum creatinine 2.3 unchanged. Electrolytes within normal limit. Continue per consultants. November 07: Labs reviewed. Serum creatinine down to 2.3. Continue to monitor electrolytes. Low magnesium addressed. November 06: Labs reviewed. Serum creatinine 2.5 unchanged. Continue per consultants. November 05: Labs reviewed. Serum creatinine plateauing. Status quo. Electrolyte acceptable. Now on oxygen by cannula. Continue per consultants. November 04 labs reviewed. Patient full code. On Venturi mask. Low potassium addressed. Serum creatinine rising. Continue to monitor renal parameters. Al lopurinol initiated November 03: Labs reviewed. Medication list reviewed. Abnormal electrolyte addressed. Continue monitor renal parameters. Continue per consultants. Previously: Trial of 3% saline and albumin bolus Potassium supplement Monitor renal parameters, ammonia, electrolytes ordered Subjective ROS Limited/Unobtainable: No Constitutional: Reports: malaise Objective Objective Last 24 Hour Vital Signs Date Time Temp Pulse Resp B/P (MAP) Pulse Ox O2 Delivery O2 Flow Rate FiO2 11/15/20 12:00 97.9 86 18 111/72 (85) 95 11/15/20 10:08 96 Nasal Cannula 3.0 32 11/15/20 08:00 98.6 88 20 108/71 (83) 96 11/15/20 04:00 97.3 92 26 110/73 (85) 96 11/15/20 00:00 97.2 94 26 113/75 (88) 96 11/14/20 21:00 Nasal Cannula 3.0 11/14/20 20:00 98.4 100 24 114/72 (86) 94 11/14/20 19:03 93 Nasal Cannula 3.0 32 11/14/20 16:00 98.5 106 18 113/75 (88) 94 Intake and Output 11/14/20 11/15/20 19:00 07:00 Intake Total 840 ml Output Total 200 ml Balance 640 ml Intake Oral 840 ml Output Urine Total 200 ml # Bowel Movements 1 Current Medications Medications (Trade) Dose Ordered Sig/Kylah Route PRN Reason Start Time Stop Time Status Last Admin Dose Admin Acetaminophen (Tylenol) 500 mg Q6H PRN ORAL Mild Pain 11/02/20 08:30 12/02/20 08:29 11/13/20 08:33 Acetaminophen (Tylenol) 500 mg Q6H PRN ORAL fever > 100.2 11/02/20 08:45 12/02/20 08:44 Acetaminophen/ Hydrocodone Bitart ([place] 5/325) 1 tab Q6H PRN ORAL Severe Pain (Pain Scale 7-10) 11/11/20 10:15 11/18/20 10:14 11/15/20 08:07 Allopurinol (Zyloprim) 200 mg DAILY ORAL 11/04/20 15:00 12/04/20 14:59 11/15/20 08:07 Dextrose (Dextrose 50%) 25 ml Q30M PRN IV Hypoglycemia 11/01/20 18:30 01/30/21 18:29 Dextrose (Dextrose 50%) 50 ml Q30M PRN IV Hypoglycemia 11/01/20 18:30 01/30/21 18:29 Folic Acid (Folate) 3 mg DAILY ORAL 11/03/20 13:15 12/03/20 13:14 11/15/20 08:07 Furosemide (Lasix) 20 mg DAILY IV 11/13/20 10:00 12/13/20 09:59 11/15/20 08:08 Heparin Sodium (Porcine) (Heparin 5000 units/ml) 5,000 units EVERY 12 HOURS SUBQ 11/01/20 21:00 12/16/20 20:59 11/15/20 08:09 Insulin Aspart (NovoLOG) BEFORE MEALS AND HS SUBQ 11/01/20 21:00 01/30/21 20:59 11/15/20 12:33 Magnesium Oxide (Mag-Ox 400mg) 400 mg THREE TIMES A DAY ORAL 11/13/20 13:00 12/13/20 12:59 11/15/20 12:33 Magnesium Sulfate 100 ml @ 100 mls/hr Q1H IVPB 11/15/20 14:00 11/15/20 17:59 11/15/20 14:03 Midodrine (Pro-Amatine) 10 mg Q8HR ORAL 11/02/20 14:00 01/31/21 13:59 11/14/20 21:03 Pantoprazole (Protonix) 40 mg DAILY ORAL 11/14/20 09:00 12/14/20 08:59 11/15/20 08:06 Phosphorus (Phospha 250 Neutral) 250 mg THREE TIMES A DAY ORAL 11/13/20 13:00 12/13/20 12:59 11/15/20 12:32 Spironolactone (Aldactone) 100 mg DAILY ORAL 11/16/20 09:00 12/16/20 08:59 Vitamin D (Vitamin D) 5,000 unit DAILY ORAL 11/16/20 09:00 12/16/20 08:59 Laboratory Tests 11/15/20 05:00: White Blood Count 13.0H, Red Blood Count 2.62L, Hemoglobin 9.1L, Hematocrit 27.9L, Mean Corpuscular Volume 106H, Mean Corpuscular Hemoglobin 34.8H, Mean Corpuscular Hemoglobin Concent 32.8, Red Cell Distribution Width 19.9H, Platelet Count 309, Mean Platelet Volume 5.3L, Neutrophils (%) (Auto) 80.7H, Lymphocytes (%) (Auto) 9.6L, Monocytes (%) (Auto) 7.4, Eosinophils (%) (Auto) 1.7, Basophils (%) (Auto) 0.6, Sodium Level 139, Potassium Level 4.1, Chloride Level 101, Carbon Dioxide Level 31, Anion Gap 7, Blood Urea Nitrogen 26H, Creatinine 1.2, Estimat Glomerular Filtration Rate > 60, Glucose Level 104, Calcium Level 7.9L, Phosphorus Level 3.6, Magnesium Level 1.4L, Total Bilirubin 0.8, Aspartate Amino Transf (AST/SGOT) 49H, Alanine Aminotransferase (ALT/SGPT) 16, Alkaline Phosphatase 138H, C-Reactive Protein, Quantitative 9.9H, Total Protein 6.6, Albumin 1.6L, Globulin 5.0, Albumin/Globulin Ratio 0.3L Height (Feet): 6 Height (Inches): 1.00 Weight (Pounds): 200 General Appearance: no apparent distress Cardiovascular: normal rate Respiratory/Chest: lungs clear Abdomen: soft Kalin Pozo MD Nov 15, 2020 12:33
--- NOTE | 2020-11-15 12:38 | General Progress Note ---
Subjective ROS Limited/Unobtainable: No Allergies: Coded Allergies: No Known Allergies (Unverified , 10/02/16) Objective Last 24 Hour Vital Signs Date Time Temp Pulse Resp B/P (MAP) Pulse Ox O2 Delivery O2 Flow Rate FiO2 11/15/20 12:00 97.9 86 18 111/72 (85) 95 11/15/20 10:08 96 Nasal Cannula 3.0 32 11/15/20 08:00 98.6 88 20 108/71 (83) 96 11/15/20 04:00 97.3 92 26 110/73 (85) 96 11/15/20 00:00 97.2 94 26 113/75 (88) 96 11/14/20 21:00 Nasal Cannula 3.0 11/14/20 20:00 98.4 100 24 114/72 (86) 94 11/14/20 19:03 93 Nasal Cannula 3.0 32 11/14/20 16:00 98.5 106 18 113/75 (88) 94 Intake and Output 11/14/20 11/15/20 19:00 07:00 Intake Total 840 ml Output Total 200 ml Balance 640 ml Intake Oral 840 ml Output Urine Total 200 ml # Bowel Movements 1 Laboratory Tests 11/15/20 05:00: White Blood Count 13.0H, Red Blood Count 2.62L, Hemoglobin 9.1L, Hematocrit 27.9 L, Mean Corpuscular Volume 106H, Mean Corpuscular Hemoglobin 34.8H, Mean Cor puscular Hemoglobin Concent 32.8, Red Cell Distribution Width 19.9H, Platelet Count 309, Mean Platelet Volume 5.3L, Neutrophils (%) (Auto) 80.7H, Lymphocytes (%) (Auto) 9.6L, Monocytes (%) (Auto) 7.4, Eosinophils (%) (Auto) 1.7, Basophils (%) (Auto) 0.6, Sodium Level 139, Potassium Level 4.1, Chloride Level 101, Carbon Dioxide Level 31, Anion Gap 7, Blood Urea Nitrogen 26H, Creatinine 1.2, Estimat Glomerular Filtration Rate > 60, Glucose Level 104, Calcium Level 7.9L, Phosphorus Level 3.6, Magnesium Level 1.4L, Total Bilirubin 0.8, Aspartate Amino Transf (AST/SGOT) 49H, Alanine Aminotransferase (ALT/SGPT) 16, Alkaline Phosphatase 138H, C-Reactive Protein, Quantitative 9.9H, Total Protein 6.6, Albumin 1.6L, Globulin 5.0, Albumin/Globulin Ratio 0.3L Height (Feet): 6 Height (Inches): 1.00 Weight (Pounds): 200 General Appearance: no apparent distress EENT: normal ENT inspection Neck: supple Cardiovascular: normal rate Respiratory/Chest: decreased breath sounds Abdomen: hypoactive bowel sounds Extremities: non-tender Assessment/Plan Problem List: (1) Cirrhosis ICD Codes: K74.60 - Unspecified cirrhosis of liver SNOMED: 38547067 (2) Hepatic encephalopathy ICD Codes: K72.90 - Hepatic failure, unspecified without coma; R65.20 - Severe sepsis without septic shock SNOMED: 08878248 (3) Hypokalemia ICD Codes: E87.6 - Hypokalemia; R65.20 - Severe sepsis without septic shock SNOMED: 52779539 (4) Ascites ICD Codes: R18.8 - Other ascites SNOMED: 581316809 (5) Severe sepsis ICD Codes: A41.9 - Sepsis, unspecified organism; R65.20 - Severe sepsis without septic shock SNOMED: 65136323 (6) AMS (altered mental status) ICD Codes: R41.82 - Altered mental status, unspecified SNOMED: 719621117 Assessment/Plan: Assessment/Plan Problem List: (1) Cirrhosis ICD Codes: K74.60 - Unspecified cirrhosis of liver SNOMED: (2) Hepatic encephalopathy ICD Codes: K72.90 - Hepatic failure, unspecified without coma; R65.20 - Severe sepsis without septic shock SNOMED: 88384569 (3) Hypokalemia ICD Codes: E87.6 - Hypokalemia; R65.20 - Severe sepsis without septic shock SNOMED: 61031298 (4) Ascites ICD Codes: R18.8 - Other ascites SNOMED: 648723720 (5) Severe sepsis ICD Codes: A41.9 - Sepsis, unspecified organism; R65.20 - Severe sepsis without septic shock SNOMED: 16542912 (6) AMS (altered mental status) ICD Codes: R41.82 - Altered mental status, unspecified SNOMED: 013969813 Assessment/Plan: po as tolerated Elevate HOB lactulose PPI f/u ammonia level fu hepatitis panel>>> neg s/p repeat paracentesis 7 lit lasix aldactone >>> will increase to 100 repeat labs albumin Mejia Encarnacion MD Nov 15, 2020 12:38
--- NOTE | 2020-11-15 13:25 | NUR ---
CASE MANAGEMENT:REVIEW 11/15/20 SI: SEPSIS. HYPOXIA. ETOH ABUSE. ASCITES S/P PARACENTESIS~ 10.2 L REMOVED 97.9 86 18 111/72 95% ON 3L/NC WBC+13.0 H/H-9.1/27.9 MAG-1.4 IS: IV MAG SULFATE Q1HR X4 BAGS PROTONIX PO QD PHOSPHA PO TID MAG OXIDE PO TID ALDACTONE PO QD IV LASIX QD ALLOPURINOL PO QD FOLATE PO QD MIDODRINE PO Q8HRS HEPARIN SQ Q12 : MED/SURG STATUS DCP: FROM HOME PLAN: NEED TO WEAN TO ROOM AIR...WILL NOT BE ABLE TO OBTAIN OXYGEN FOR HOME USE
--- NOTE | 2020-11-15 13:51 | Internal Med Progress Note ---
Subjective Physician Name Ramon Coombs Attending Physician Ramon Coombs MD Current Medications Medications (Trade) Dose Ordered Sig/Kylah Route PRN Reason Start Time Stop Time Status Last Admin Dose Admin Acetaminophen (Tylenol) 500 mg Q6H PRN ORAL Mild Pain 11/02/20 08:30 12/02/20 08:29 11/13/20 08:33 Acetaminophen (Tylenol) 500 mg Q6H PRN ORAL fever > 100.2 11/02/20 08:45 12/02/20 08:44 Acetaminophen/ Hydrocodone Bitart ([place] 5/325) 1 tab Q6H PRN ORAL Severe Pain (Pain Scale 7-10) 11/11/20 10:15 11/18/20 10:14 11/15/20 08:07 Allopurinol (Zyloprim) 200 mg DAILY ORAL 11/04/20 15:00 12/04/20 14:59 11/15/20 08:07 Dextrose (Dextrose 50%) 25 ml Q30M PRN IV Hypoglycemia 11/01/20 18:30 01/30/21 18:29 Dextrose (Dextrose 50%) 50 ml Q30M PRN IV Hypoglycemia 11/01/20 18:30 01/30/21 18:29 Folic Acid (Folate) 3 mg DAILY ORAL 11/03/20 13:15 12/03/20 13:14 11/15/20 08:07 Furosemide (Lasix) 20 mg DAILY IV 11/13/20 10:00 12/13/20 09:59 11/15/20 08:08 Heparin Sodium (Porcine) (Heparin 5000 units/ml) 5,000 units EVERY 12 HOURS SUBQ 11/01/20 21:00 12/16/20 20:59 11/15/20 08:09 Insulin Aspart (NovoLOG) BEFORE MEALS AND HS SUBQ 11/01/20 21:00 01/30/21 20:59 11/15/20 12:33 Magnesium Oxide (Mag-Ox 400mg) 400 mg THREE TIMES A DAY ORAL 11/13/20 13:00 12/13/20 12:59 11/15/20 12:33 Magnesium Sulfate 100 ml @ 100 mls/hr Q1H IVPB 11/15/20 13:00 11/15/20 16:59 Midodrine (Pro-Amatine) 10 mg Q8HR ORAL 11/02/20 14:00 01/31/21 13:59 11/14/20 21:03 Pantoprazole (Protonix) 40 mg DAILY ORAL 11/14/20 09:00 12/14/20 08:59 11/15/20 08:06 Phosphorus (Phospha 250 Neutral) 250 mg THREE TIMES A DAY ORAL 11/13/20 13:00 12/13/20 12:59 11/15/20 12:32 Spironolactone (Aldactone) 100 mg DAILY ORAL 11/16/20 09:00 12/16/20 08:59 Vitamin D (Vitamin D) 5,000 unit DAILY ORAL 11/16/20 09:00 12/16/20 08:59 Allergies: Coded Allergies: No Known Allergies (Unverified , 10/02/16) Subjective awake, alert, responsive, NAD, no acute distress.WBC: 13.0, once to ambulate. Objective Last Vital Signs Date Time Temp Pulse Resp B/P (MAP) Pulse Ox O2 Delivery O2 Flow Rate FiO2 11/15/20 12:00 97.9 86 18 111/72 (85) 95 11/15/20 10:08 Nasal Cannula 3.0 32 Laboratory Tests Test 11/15/20 05:00 White Blood Count 13.0 K/UL (4.8-10.8) H Red Blood Count 2.62 M/UL (4.70-6.10) L Hemoglobin 9.1 G/DL (14.2-18.0) L Hematocrit 27.9 % (42.0-52.0) L Mean Corpuscular Volume 106 FL (80-99) H Mean Corpuscular Hemoglobin 34.8 PG (27.0-31.0) H Mean Corpuscular Hemoglobin Concent 32.8 G/DL (32.0-36.0) Red Cell Distribution Width 19.9 % (11.6-14.8) H Platelet Count 309 K/UL (150-450) Mean Platelet Volume 5.3 FL (6.5-10.1) L Neutrophils (%) (Auto) 80.7 % (45.0-75.0) H Lymphocytes (%) (Auto) 9.6 % (20.0-45.0) L Monocytes (%) (Auto) 7.4 % (1.0-10.0) Eosinophils (%) (Auto) 1.7 % (0.0-3.0) Basophils (%) (Auto) 0.6 % (0.0-2.0) Sodium Level 139 MMOL/L (136-145) Potassium Level 4.1 MMOL/L (3.5-5.1) Chloride Level 101 MMOL/L (98-107) Carbon Dioxide Level 31 MMOL/L (21-32) Anion Gap 7 mmol/L (5-15) Blood Urea Nitrogen 26 mg/dL (7-18) H Creatinine 1.2 MG/DL (0.55-1.30) Estimat Glomerular Filtration Rate > 60 mL/min (>60) Glucose Level 104 MG/DL (74-106) Calcium Level 7.9 MG/DL (8.5-10.1) L Phosphorus Level 3.6 MG/DL (2.5-4.9) Magnesium Level 1.4 MG/DL (1.8-2.4) L Total Bilirubin 0.8 MG/DL (0.2-1.0) Aspartate Amino Transf (AST/SGOT) 49 U/L (15-37) H Alanine Aminotransferase (ALT/SGPT) 16 U/L (12-78) Alkaline Phosphatase 138 U/L (46-116) H C-Reactive Protein, Quantitative 9.9 mg/dL (0.00-0.90) H Total Protein 6.6 G/DL (6.4-8.2) Albumin 1.6 G/DL (3.4-5.0) L Globulin 5.0 g/dL Albumin/Globulin Ratio 0.3 (1.0-2.7) L Intake and Output 11/14/20 11/15/20 19:00 07:00 Intake Total 840 ml Output Total 200 ml Balance 640 ml Intake Oral 840 ml Output Urine Total 200 ml # Bowel Movements 1 Objective General: No acute distress, awake, alert, Responsive. HEENT: NCAT, sclera anicteric, PERRL, EOMI. Neck: Supple, no significant jugular venous distention, Lungs: Fair inspiratory effort, , no Wheeze or Rales. Heart: Regular rate and rhythm, normal S1/S2, no murmurs Abdomen: soft, nontender, +distended. positive fluid shift, bowel sound present. / Rectal: Refused and deferred. Extremities: No Cyanosis , clubbing or edema. Neuro: A&O x 3, Able to move all extremities Skin: warm, no rash Assessment/Plan Assessment/Plan Sepsis Acute Hypoxia on BiPAP >> resolved alcohol abuse Liver Cirrhosis, Fatty liver Massive ascites DAVIDE vs CKD DM2 HTN Plan: Abx: Off Consider repeat paracentesis in AM, COVID PCR negative F/u BCx monitor laboratory PT Mobility DC planning to SNF Ramon oCombs MD Nov 15, 2020 13:51
[2020-11-15 16:00] VITALS: BP 123/75
--- NOTE | 2020-11-15 19:00 | NUR ---
NURSE HAND-OFF: Important Events on Shift: Pain meds x1, BM Patient Status: stable Diet: CCHO (M) Pending Orders: n/a Pending Results/Labs:n/a Pending MD notification:n/a Latest Vital Signs: Temperature 98.0 , Pulse 101 , B/P 123 /75 , Respiratory Rate 18 , O2 SAT 96 , Bi-pap, O2 Flow Rate 3.0 . Vital Sign Comment: stable Latest Childs Fall Score: 70 Fall Risk: High Risk Safety Measures: Call light Within Reach, Bed Alarm Zone 2, Side Rails Side Rails x2, Bed position Low and Locked. Fall Precautions: Yellow Socks Door Sign Report given to MORGAN Lau.
[2020-11-15 20:00] VITALS: BP 115/74
--- NOTE | 2020-11-15 20:00 | NUR ---
NURSE NOTES: RECEIVED PATIENT LYING IN BED, AWAKE, ALERT/ORIENTED X4, VERBALLY RESPONSIVE, DENIES PAIN. NO SIGNS AND SYMPTOMS OF ACUTE CARDIO RESPIRATORY DISTRESS/SHORTNESS OF BREATH, DENIES CHEST PAIN. IV INTACT TO LEFT FOREARM/GAUGE 22, SALINE LOCK, NO REDNESS/SWELLING NOTED. ABDOMEN DISTENDED/FIRM/ASCITIES , US PARACENTESIS 11/16/20- S/P ASCITIES X2, TOTAL 17.2 LITERS REMOVED. CONDOM CATHETER INTACT, DRAINING YELLOW URINE VIA GRAVITY, NO SIGNS OF HEMATURIA. SIDE RAILS UP X3/BED IN LOWEST POSITION FOR SAFETY, ENCOURAGED PATIENT TO UTILIZE CALL LIGHT FOR ASSISTANCE, VERBALIZED UNDERSTANDING, CONTINUE WITH CURRENT PLAN OF CARE. NAD.
[2020-11-16] VITALS: BP 122/76
[2020-11-16 04:00] VITALS: BP 125/85
[2020-11-16] MEDS: Midodrine 10mg tab ORAL SCH ×3 (06:11→21:10)
[2020-11-16] MEDS: NovoLOG Insulin Flexpen SUBQ SCH ×4 (06:12→21:08)
[2020-11-16 06:14] LABS: BASOPHILS % (AUTO) 1.1 % (0.0-2.0); EOSINOPHILS % (AUTO) 1.5 % (0.0-3.0); HEMATOCRIT 30.4 % (42.0-52.0); HEMOGLOBIN 9.7 G/DL (14.2-18.0); LYMPHOCYTES % (AUTO) 8.7 % (20.0-45.0); MEAN CORPUSCULAR VOLUME 109 FL (80-99); MONOCYTES % (AUTO) 5.9 % (1.0-10.0); NEUTROPHILS % (AUTO) 82.9 % (45.0-75.0); PLATELET COUNT 348 K/UL (150-450); WHITE BLOOD COUNT 14.4 K/UL (4.8-10.8)
--- NOTE | 2020-11-16 06:16 | NUR ---
NURSE HAND-OFF: Important Events on Shift:[UNEVENTFUL NIGHT, RESTED WELL] Patient Status: [STABLE, AFEBRILE] Diet: [CCHO MEDIUM] Pending Orders: [AM LABS, US PARACENTESIS] Pending Results/Labs:[] Pending MD notification:[] Latest Vital Signs: Temperature 98.1 , Pulse 92 , B/P 125 /85 , Respiratory Rate 20 , O2 SAT 96 , Bi-pap, O2 Flow Rate 3.0 . Vital Sign Comment: [STABLE, AFEBRILE] Latest Childs Fall Score: 70 Fall Risk: High Risk Safety Measures: Call light Within Reach, Bed Alarm Zone 2, Side Rails Side Rails x2, Bed position Low and Locked. Fall Precautions: Yellow Socks Door Sign Report given to [ROXI QUILES].
--- NOTE | 2020-11-16 06:17 | General Progress Note ---
Subjective ROS Limited/Unobtainable: No Allergies: Coded Allergies: No Known Allergies (Unverified , 10/02/16) Objective Last 24 Hour Vital Signs Date Time Temp Pulse Resp B/P (MAP) Pulse Ox O2 Delivery O2 Flow Rate FiO2 11/16/20 04:00 98.1 92 20 125/85 (98) 96 11/16/20 00:00 98.1 92 18 122/76 (91) 95 11/15/20 22:34 98.0 11/15/20 21:00 Nasal Cannula 3.0 11/15/20 20:00 98.3 96 18 115/74 (88) 96 11/15/20 19:26 96 Nasal Cannula 3.0 32 11/15/20 16:00 98.0 101 18 123/75 (91) 96 11/15/20 12:00 97.9 86 18 111/72 (85) 95 11/15/20 10:08 96 Nasal Cannula 3.0 32 11/15/20 09:00 Nasal Cannula 3.0 11/15/20 08:00 98.6 88 20 108/71 (83) 96 Intake and Output 11/15/20 11/16/20 19:00 07:00 Intake Total 600 ml 480 ml Output Total 300 ml 500 ml Balance 300 ml -20 ml Intake Oral 600 ml 480 ml Output Urine Total 300 ml 500 ml # Voids 1 # Bowel Movements 1 1 Laboratory Tests 11/16/20 04:50: White Blood Count [Pending], Red Blood Count [Pending], Hemoglobin [Pending], Hematocrit [Pending], Mean Corpuscular Volume [Pending], Mean Corpuscular Hemoglobin [Pending], Mean Corpuscular Hemoglobin Concent [Pending], Red Cell Distribution Width [Pending], Platelet Count [Pending], Mean Platelet Volume [Pending], Neutrophils (%) (Auto) [Pending], Lymphocytes (%) (Auto) [Pending], Monocytes (%) (Auto) [Pending], Eosinophils (%) (Auto) [Pending], Basophils (%) (Auto) [Pending], Sodium Level [Pending], Potassium Level [Pending], Chloride Level [Pending], Carbon Dioxide Level [Pending], Blood Urea Nitrogen [Pending], Creatinine [Pending], Estimat Glomerular Filtration Rate [Pending], Glucose Level [Pending], Calcium Level [Pending] Height (Feet): 6 Height (Inches): 1.00 Weight (Pounds): 200 General Appearance: no apparent distress EENT: normal ENT inspection Neck: supple Cardiovascular: normal rate Respiratory/Chest: decreased breath sounds Abdomen: non tender, hypoactive bowel sounds, distended Extremities: non-tender Assessment/Plan Problem List: (1) Cirrhosis ICD Codes: K74.60 - Unspecified cirrhosis of liver SNOMED: 35583180 (2) Hepatic encephalopathy ICD Codes: K72.90 - Hepatic failure, unspecified without coma; R65.20 - Severe sepsis without septic shock SNOMED: 56659534 (3) Hypokalemia ICD Codes: E87.6 - Hypokalemia; R65.20 - Severe sepsis without septic shock SNOMED: 47696882 (4) Ascites ICD Codes: R18.8 - Other ascites SNOMED: 571722574 (5) Severe sepsis ICD Codes: A41.9 - Sepsis, unspecified organism; R65.20 - Severe sepsis without septic shock SNOMED: 61549916 (6) AMS (altered mental status) ICD Codes: R41.82 - Altered mental status, unspecified SNOMED: 886940997 Assessment/Plan: Assessment/Plan Problem List: (1) Cirrhosis ICD Codes: K74.60 - Unspecified cirrhosis of liver SNOMED: (2) Hepatic encephalopathy ICD Codes: K72.90 - Hepatic failure, unspecified without coma; R65.20 - Severe sepsis without septic shock SNOMED: 78638634 (3) Hypokalemia ICD Codes: E87.6 - Hypokalemia; R65.20 - Severe sepsis without septic shock SNOMED: 15431734 (4) Ascites ICD Codes: R18.8 - Other ascites SNOMED: 495827918 (5) Severe sepsis ICD Codes: A41.9 - Sepsis, unspecified organism; R65.20 - Severe sepsis without septic shock SNOMED: 76271490 (6) AMS (altered mental status) ICD Codes: R41.82 - Altered mental status, unspecified SNOMED: 814489271 Assessment/Plan: lactulose PPI f/u ammonia level fu hepatitis panel>>> neg s/p repeat paracentesis x2 and total of 17 lit removed pending repeat paracentesis for today lasix aldactone repeat labs albumin Mejia Encarnacion MD Nov 16, 2020 06:17
[2020-11-16 06:47] LABS: ANION GAP 6 mmol/L (5-15); BLOOD UREA NITROGEN 25 mg/dL (7-18); CALCIUM 8.2 MG/DL (8.5-10.1); CARBON DIOXIDE 31 MMOL/L (21-32); CHLORIDE 99 MMOL/L (98-107); CREATININE 1.1 MG/DL (0.55-1.30); POTASSIUM 3.8 MMOL/L (3.5-5.1); SODIUM 136 MMOL/L (136-145)
--- NOTE | 2020-11-16 07:30 | NUR ---
NURSE NOTES: Patient lying in bed awake. Complain of pain 8/10 on abdominal area and will administer pain medication as ordered. IV dressing intact and dry. Bed lowest position and side rails up. Call light within reach. Will continue to monitor.
--- NOTE | 2020-11-16 07:48 | Infectious Diseases Prog Note ---
Assessment/Plan 60yo M with: Sepsis Afebrile Hypoxia on BiPAP >> NRB mask >> venti mask Leukocytosis to 14, improving Lymphopenia 11/01 BCx NTD COVID PCR neg CXR: Elevated right hemidiaphragm. Possible right basilar airspace disease and right effusion. CTH: No acute process EtOH abuse Cirrhosis, Fatty liver M[place] ascites Elevated AST to 48 Acute hep panel neg 11/01 CT A/P: CIRRHOSIS WITH LARGE AMOUNT OF ASCITES. SPLENIC GRANULOMAS. SLUDGE IN THE GALLBLADDER. SMALL RIGHT PLEURAL EFFUSION WITH COMPRESSIVE ATELECTASIS RIGHT LOWER LOBE. ELEVATED RIGHT HEMIDIAPHRAGM. 11/02 Paracentesis, 10.2L removed 838 RBC, 142 WBC, 2%PMN, 94%[place] Cx - NTD DAVIDE vs CKD, Cr 2.4, improving HIV screen neg PMH: EtOH abuse, stopped drinking in Sep 2020 Fatty liver DM2 HTN Plan: Cont to monitor off abx Trend WBC, overall stable/improving off abx 11/11 SP Zosyn #10 11/03 SP vanco #2 Monitor CBC/CMP Monitor temp curve, hemodynamics Monitor resp status D/w RN Thank you for this consult. [facility] will continue to follow. Subjective Allergies: Coded Allergies: No Known Allergies (Unverified , 10/02/16) AF NAD on 3L NC WBC 14, overall stable Abd very distended, going for paracentesis later he says Objective Last 24 Hour Vital Signs Date Time Temp Pulse Resp B/P (MAP) Pulse Ox O2 Delivery O2 Flow Rate FiO2 11/16/20 04:00 98.1 92 20 125/85 (98) 96 11/16/20 00:00 98.1 92 18 122/76 (91) 95 11/15/20 22:34 98.0 11/15/20 21:00 Nasal Cannula 3.0 11/15/20 20:00 98.3 96 18 115/74 (88) 96 11/15/20 19:26 96 Nasal Cannula 3.0 32 11/15/20 16:00 98.0 101 18 123/75 (91) 96 11/15/20 12:00 97.9 86 18 111/72 (85) 95 11/15/20 10:08 96 Nasal Cannula 3.0 32 11/15/20 09:00 Nasal Cannula 3.0 11/15/20 08:00 98.6 88 20 108/71 (83) 96 Height (Feet): 6 Height (Inches): 1.00 Weight (Pounds): 200 Gen: NAD HEENT: NCAT, EOMI Pulm: BL chest rise Abd: Distended, soft, +fluid wave Ext: No c/c/e Neuro: Awake, interactive Laboratory Tests Test 11/16/20 04:50 White Blood Count 14.4 K/UL (4.8-10.8) H Red Blood Count 2.80 M/UL (4.70-6.10) L Hemoglobin 9.7 G/DL (14.2-18.0) L Hematocrit 30.4 % (42.0-52.0) L Mean Corpuscular Volume 109 FL (80-99) H Mean Corpuscular Hemoglobin 34.6 PG (27.0-31.0) H Mean Corpuscular Hemoglobin Concent 31.9 G/DL (32.0-36.0) L Red Cell Distribution Width 20.0 % (11.6-14.8) H Platelet Count 348 K/UL (150-450) Mean Platelet Volume 5.1 FL (6.5-10.1) L Neutrophils (%) (Auto) 82.9 % (45.0-75.0) H Lymphocytes (%) (Auto) 8.7 % (20.0-45.0) L Monocytes (%) (Auto) 5.9 % (1.0-10.0) Eosinophils (%) (Auto) 1.5 % (0.0-3.0) Basophils (%) (Auto) 1.1 % (0.0-2.0) Sodium Level 136 MMOL/L (136-145) Potassium Level 3.8 MMOL/L (3.5-5.1) Chloride Level 99 MMOL/L (98-107) Carbon Dioxide Level 31 MMOL/L (21-32) Anion Gap 6 mmol/L (5-15) Blood Urea Nitrogen 25 mg/dL (7-18) H Creatinine 1.1 MG/DL (0.55-1.30) Estimat Glomerular Filtration Rate > 60 mL/min (>60) Glucose Level 130 MG/DL (74-106) H Calcium Level 8.2 MG/DL (8.5-10.1) L Current Medications Medications (Trade) Dose Ordered Sig/Kylah Route PRN Reason Start Time Stop Time Status Last Admin Dose Admin Acetaminophen (Tylenol) 500 mg Q6H PRN ORAL Mild Pain 11/02/20 08:30 12/02/20 08:29 11/13/20 08:33 Acetaminophen (Tylenol) 500 mg Q6H PRN ORAL fever > 100.2 11/02/20 08:45 12/02/20 08:44 Acetaminophen/ Hydrocodone Bitart ([place] 5/325) 1 tab Q6H PRN ORAL Severe Pain (Pain Scale 7-10) 11/11/20 10:15 11/18/20 10:14 11/15/20 22:04 Albumin Human 100 ml @ 100 mls/hr ONCE ONCE IV 11/16/20 08:00 11/16/20 08:59 Allopurinol (Zyloprim) 200 mg DAILY ORAL 11/04/20 15:00 12/04/20 14:59 11/15/20 08:07 Dextrose (Dextrose 50%) 25 ml Q30M PRN IV Hypoglycemia 11/01/20 18:30 01/30/21 18:29 Dextrose (Dextrose 50%) 50 ml Q30M PRN IV Hypoglycemia 11/01/20 18:30 01/30/21 18:29 Folic Acid (Folate) 3 mg DAILY ORAL 11/03/20 13:15 12/03/20 13:14 11/15/20 08:07 Furosemide (Lasix) 20 mg DAILY IV 11/13/20 10:00 12/13/20 09:59 11/15/20 08:08 Heparin Sodium (Porcine) (Heparin 5000 units/ml) 5,000 units EVERY 12 HOURS SUBQ 11/01/20 21:00 12/16/20 20:59 11/15/20 20:37 Insulin Aspart (NovoLOG) BEFORE MEALS AND HS SUBQ 11/01/20 21:00 01/30/21 20:59 11/16/20 06:12 Magnesium Oxide (Mag-Ox 400mg) 400 mg THREE TIMES A DAY ORAL 11/13/20 13:00 12/13/20 12:59 11/15/20 17:15 Midodrine (Pro-Amatine) 10 mg Q8HR ORAL 11/02/20 14:00 01/31/21 13:59 11/16/20 06:11 Pantoprazole (Protonix) 40 mg DAILY ORAL 11/14/20 09:00 12/14/20 08:59 11/15/20 08:06 Phosphorus (Phospha 250 Neutral) 250 mg THREE TIMES A DAY ORAL 11/13/20 13:00 12/13/20 12:59 11/15/20 17:15 Spironolactone (Aldactone) 100 mg DAILY ORAL 11/16/20 09:00 12/16/20 08:59 Vitamin D (Vitamin D) 5,000 unit DAILY ORAL 11/16/20 09:00 12/16/20 08:59 Viviana Casper M.D. Nov 16, 2020 07:48
[2020-11-16] MEDS: HYDROcodone/Acetamin 5/325 tab ORAL PRN ×2 (07:59→17:53)
[2020-11-16 08:00] VITALS: BP 134/89
[2020-11-16] MEDS: Heparin 5000 units/ml inj SUBQ SCH ×2 (09:00→21:07)
[2020-11-16] MEDS: Phospha 250 Neutral tab ORAL SCH ×3 (09:04→17:45)
[2020-11-16] MEDS: Vitamin D 1000 units Tab ORAL SCH (09:05)
[2020-11-16] MEDS: Magnesium Oxide 400mg tab ORAL SCH ×3 (09:06→17:45)
[2020-11-16] MEDS: Spironolactone 50mg tab ORAL SCH (09:07)
[2020-11-16] MEDS: Allopurinol 100mg Tab ORAL SCH (09:07)
[2020-11-16 10:56] LABS: INR 1.2 (0.9-1.1)
--- NOTE | 2020-11-16 11:06 | NUR ---
CASE MANAGEMENT:REVIEW 11/16/20 SI: SEPSIS. HYPOXIA. ETOH ABUSE. ASCITES S/P PARACENTESIS~ 10.2 L REMOVED 97.7 96 22 134/89 94% ON 3L/NC WBC+14.4 IS: IV ALBUMIN X1 PROTONIX PO QD PHOSPHA PO TID MAG OXIDE PO TID ALDACTONE PO QD IV LASIX QD ALLOPURINOL PO QD FOLATE PO QD MIDODRINE PO Q8HRS HEPARIN SQ Q12 : MED/SURG STATUS DCP: FROM HOME.....[facility]? PLAN: NEED TO WEAN TO ROOM AIR...WILL NOT BE ABLE TO OBTAIN OXYGEN FOR HOME USE
[2020-11-16 11:24] LABS: ALANINE AMINOTRANSFERASE 15 U/L (12-78); ALBUMIN 1.7 G/DL (3.4-5.0); ALKALINE PHOSPHATASE 159 U/L (46-116); ASPARTATE AMINO TRANSFERASE 53 U/L (15-37); BILIRUBIN,TOTAL 0.6 MG/DL (0.2-1.0)
[2020-11-16 11:33] LABS: BILIRUBIN,DIRECT 0.3 MG/DL (0.0-0.3)
[2020-11-16 12:00] VITALS: BP 117/74
--- NOTE | 2020-11-16 12:46 | Internal Med Progress Note ---
Subjective Physician Name Ramon Coombs Attending Physician Ramon Coombs MD Current Medications Medications (Trade) Dose Ordered Sig/Kylah Route PRN Reason Start Time Stop Time Status Last Admin Dose Admin Acetaminophen (Tylenol) 500 mg Q6H PRN ORAL Mild Pain 11/02/20 08:30 12/02/20 08:29 11/13/20 08:33 Acetaminophen (Tylenol) 500 mg Q6H PRN ORAL fever > 100.2 11/02/20 08:45 12/02/20 08:44 Acetaminophen/ Hydrocodone Bitart ([place] 5/325) 1 tab Q6H PRN ORAL Severe Pain (Pain Scale 7-10) 11/11/20 10:15 11/18/20 10:14 11/16/20 07:59 Allopurinol (Zyloprim) 200 mg DAILY ORAL 11/04/20 15:00 12/04/20 14:59 11/16/20 09:07 Dextrose (Dextrose 50%) 25 ml Q30M PRN IV Hypoglycemia 11/01/20 18:30 01/30/21 18:29 Dextrose (Dextrose 50%) 50 ml Q30M PRN IV Hypoglycemia 11/01/20 18:30 01/30/21 18:29 Folic Acid (Folate) 3 mg DAILY ORAL 11/03/20 13:15 12/03/20 13:14 11/16/20 09:05 Furosemide (Lasix) 20 mg DAILY IV 11/13/20 10:00 12/13/20 09:59 11/16/20 09:06 Heparin Sodium (Porcine) (Heparin 5000 units/ml) 5,000 units EVERY 12 HOURS SUBQ 11/01/20 21:00 12/16/20 20:59 11/15/20 20:37 Insulin Aspart (NovoLOG) BEFORE MEALS AND HS SUBQ 11/01/20 21:00 01/30/21 20:59 11/16/20 06:12 Magnesium Oxide (Mag-Ox 400mg) 400 mg THREE TIMES A DAY ORAL 11/13/20 13:00 12/13/20 12:59 11/16/20 09:06 Midodrine (Pro-Amatine) 10 mg Q8HR ORAL 11/02/20 14:00 01/31/21 13:59 11/16/20 06:11 Pantoprazole (Protonix) 40 mg DAILY ORAL 11/14/20 09:00 12/14/20 08:59 11/16/20 09:06 Phosphorus (Phospha 250 Neutral) 250 mg THREE TIMES A DAY ORAL 11/13/20 13:00 12/13/20 12:59 11/16/20 09:04 Spironolactone (Aldactone) 100 mg DAILY ORAL 11/16/20 09:00 12/16/20 08:59 11/16/20 09:07 Vitamin D (Vitamin D) 5,000 unit DAILY ORAL 11/16/20 09:00 12/16/20 08:59 11/16/20 09:05 Allergies: Coded Allergies: No Known Allergies (Unverified , 10/02/16) Subjective awake, alert, responsive, NAD, no acute distress.WBC: 14.4. Objective Last Vital Signs Date Time Temp Pulse Resp B/P (MAP) Pulse Ox O2 Delivery O2 Flow Rate FiO2 11/16/20 08:00 97.7 96 22 134/89 (104) 94 11/15/20 21:00 Nasal Cannula 3.0 11/15/20 19:26 32 Laboratory Tests Test 11/16/20 04:50 11/16/20 09:45 White Blood Count 14.4 K/UL (4.8-10.8) H Red Blood Count 2.80 M/UL (4.70-6.10) L Hemoglobin 9.7 G/DL (14.2-18.0) L Hematocrit 30.4 % (42.0-52.0) L Mean Corpuscular Volume 109 FL (80-99) H Mean Corpuscular Hemoglobin 34.6 PG (27.0-31.0) H Mean Corpuscular Hemoglobin Concent 31.9 G/DL (32.0-36.0) L Red Cell Distribution Width 20.0 % (11.6-14.8) H Platelet Count 348 K/UL (150-450) Mean Platelet Volume 5.1 FL (6.5-10.1) L Neutrophils (%) (Auto) 82.9 % (45.0-75.0) H Lymphocytes (%) (Auto) 8.7 % (20.0-45.0) L Monocytes (%) (Auto) 5.9 % (1.0-10.0) Eosinophils (%) (Auto) 1.5 % (0.0-3.0) Basophils (%) (Auto) 1.1 % (0.0-2.0) Sodium Level 136 MMOL/L (136-145) Potassium Level 3.8 MMOL/L (3.5-5.1) Chloride Level 99 MMOL/L (98-107) Carbon Dioxide Level 31 MMOL/L (21-32) Anion Gap 6 mmol/L (5-15) Blood Urea Nitrogen 25 mg/dL (7-18) H Creatinine 1.1 MG/DL (0.55-1.30) Estimat Glomerular Filtration Rate > 60 mL/min (>60) Glucose Level 130 MG/DL (74-106) H Calcium Level 8.2 MG/DL (8.5-10.1) L Magnesium Level 2.3 MG/DL (1.8-2.4) Total Bilirubin 0.6 MG/DL (0.2-1.0) Direct Bilirubin 0.3 MG/DL (0.0-0.3) Aspartate Amino Transf (AST/SGOT) 53 U/L (15-37) H Alanine Aminotransferase (ALT/SGPT) 15 U/L (12-78) Alkaline Phosphatase 159 U/L (46-116) H Total Protein 7.1 G/DL (6.4-8.2) Albumin 1.7 G/DL (3.4-5.0) L Prostate Specific Antigen 0.13 ng/mL (0.13-4.0) Prothrombin Time 12.8 SEC (9.30-11.50) H Prothromb Time International Ratio 1.2 (0.9-1.1) H Activated Partial Thromboplast Time 32 SEC (23-33) Intake and Output 11/15/20 11/16/20 19:00 07:00 Intake Total 600 ml 480 ml Output Total 300 ml 500 ml Balance 300 ml -20 ml Intake Oral 600 ml 480 ml Output Urine Total 300 ml 500 ml # Voids 1 # Bowel Movements 1 1 Objective General: No acute distress, awake, alert, Responsive. HEENT: NCAT, sclera anicteric, PERRL, EOMI. Neck: Supple, no significant jugular venous distention, Lungs: Fair inspiratory effort, , no Wheeze or Rales. Heart: Regular rate and rhythm, normal S1/S2, no murmurs Abdomen: soft, nontender, +distended. positive fluid shift, bowel sound present. / Rectal: Refused and deferred. Extremities: No Cyanosis , clubbing or edema. Neuro: A&O x 3, Able to move all extremities Skin: warm, no rash Assessment/Plan Assessment/Plan Sepsis Acute Hypoxia on BiPAP >> resolved alcohol abuse Liver Cirrhosis, Fatty liver Massive ascites DAVIDE vs CKD DM2 HTN Plan: Abx: Off Consider repeat paracentesis soon, COVID PCR negative F/u BCx monitor laboratory PT Mobility DC planning to [facility] Ramon Coombs MD Nov 16, 2020 12:46
--- NOTE | 2020-11-16 13:04 | Nephrology Progress Note ---
Assessment/Plan Problem List: (1) Renal failure (ARF), acute on chronic (2) Electrolyte imbalance (3) Hypokalemia (4) Cirrhosis (5) DMII (diabetes mellitus, type 2) (6) Anemia (7) HTN (hypertension) Assessment Renal failure most likely acute on chronic Electrolyte imbalances, hypokalemia Sepsis Hepatic encephalopathy, ascites, fatty liver Anemia History of EtOH abuse, history of tobacco abuse, history of drug abuse Diabetes mellitus type 2 Hypertension Lymphopenia, leukocytosis, hypoxia Plan November 16: Labs reviewed. Electrolytes within normal limit now. Continue her current management. November 15: Labs reviewed. Low magnesium addressed. Continue per current management. November 14: Labs reviewed. Renal parameters are stable continue per current management. Vitamin D supplement given. November 13: Labs reviewed. Normal renal parameters. Abnormal electrolytes noted and addressed. Vitamin D level results still pending November 12: Labs reviewed. Serum creatinine now within normal limits. Much improved from renal standpoint of view. November 11: Labs reviewed. Serum creatinine 1.6. Stable from renal standpoint reviewed. November 10: Labs reviewed. Serum creatinine lowered to 1.9. Continue to monitor renal parameters. Magnesium supplement ordered. November 09: No CHEM panel drawn today. Will DC Hernandez due to pain in the urethra. We will continue to monitor renal parameters. Continue per consultants. November 08: Labs reviewed. Serum creatinine 2.3 unchanged. Electrolytes within normal limit. Continue per consultants. November 07: Labs reviewed. Serum creatinine down to 2.3. Continue to monitor electrolytes. Low magnesium addressed. November 06: Labs reviewed. Serum creatinine 2.5 unchanged. Continue per consultants. November 05: Labs reviewed. Serum creatinine plateauing. Status quo. Electro lyte acceptable. Now on oxygen by cannula. Continue per consultants. November 04 labs reviewed. Patient full code. On Venturi mask. Low potassium addressed. Serum creatinine rising. Continue to monitor renal parameters. Allopurinol initiated November 03: Labs reviewed. Medication list reviewed. Abnormal electrolyte addressed. Continue monitor renal parameters. Continue per consultants. Previously: Trial of 3% saline and albumin bolus Potassium supplement Monitor renal parameters, ammonia, electrolytes ordered Subjective ROS Limited/Unobtainable: No Constitutional: Reports: malaise Objective Objective Last 24 Hour Vital Signs Date Time Temp Pulse Resp B/P (MAP) Pulse Ox O2 Delivery O2 Flow Rate FiO2 11/16/20 08:00 97.7 96 22 134/89 (104) 94 11/16/20 04:00 98.1 92 20 125/85 (98) 96 11/16/20 00:00 98.1 92 18 122/76 (91) 95 11/15/20 22:34 98.0 11/15/20 21:00 Nasal Cannula 3.0 11/15/20 20:00 98.3 96 18 115/74 (88) 96 11/15/20 19:26 96 Nasal Cannula 3.0 32 11/15/20 16:00 98.0 101 18 123/75 (91) 96 Intake and Output 11/15/20 11/16/20 19:00 07:00 Intake Total 600 ml 480 ml Output Total 300 ml 500 ml Balance 300 ml -20 ml Intake Oral 600 ml 480 ml Output Urine Total 300 ml 500 ml # Voids 1 # Bowel Movements 1 1 Current Medications Medications (Trade) Dose Ordered Sig/Kylah Route PRN Reason Start Time Stop Time Status Last Admin Dose Admin Acetaminophen (Tylenol) 500 mg Q6H PRN ORAL Mild Pain 11/02/20 08:30 12/02/20 08:29 11/13/20 08:33 Acetaminophen (Tylenol) 500 mg Q6H PRN ORAL fever > 100.2 11/02/20 08:45 12/02/20 08:44 Acetaminophen/ Hydrocodone Bitart (Equinunk 5/325) 1 tab Q6H PRN ORAL Severe Pain (Pain Scale 7-10) 11/11/20 10:15 11/18/20 10:14 11/16/20 07:59 Allopurinol (Zyloprim) 200 mg DAILY ORAL 11/04/20 15:00 12/04/20 14:59 11/16/20 09:07 Dextrose (Dextrose 50%) 25 ml Q30M PRN IV Hypoglycemia 11/01/20 18:30 01/30/21 18:29 Dextrose (Dextrose 50%) 50 ml Q30M PRN IV Hypoglycemia 11/01/20 18:30 01/30/21 18:29 Folic Acid (Folate) 3 mg DAILY ORAL 11/03/20 13:15 12/03/20 13:14 11/16/20 09:05 Furosemide (Lasix) 20 mg DAILY IV 11/13/20 10:00 12/13/20 09:59 11/16/20 09:06 Heparin Sodium (Porcine) (Heparin 5000 units/ml) 5,000 units EVERY 12 HOURS SUBQ 11/01/20 21:00 12/16/20 20:59 11/15/20 20:37 Insulin Aspart (NovoLOG) BEFORE MEALS AND HS SUBQ 11/01/20 21:00 01/30/21 20:59 11/16/20 06:12 Magnesium Oxide (Mag-Ox 400mg) 400 mg THREE TIMES A DAY ORAL 11/13/20 13:00 12/13/20 12:59 11/16/20 09:06 Midodrine (Pro-Amatine) 10 mg Q8HR ORAL 11/02/20 14:00 01/31/21 13:59 11/16/20 06:11 Pantoprazole (Protonix) 40 mg DAILY ORAL 11/14/20 09:00 12/14/20 08:59 11/16/20 09:06 Phosphorus (Phospha 250 Neutral) 250 mg THREE TIMES A DAY ORAL 11/13/20 13:00 12/13/20 12:59 11/16/20 09:04 Spironolactone (Aldactone) 100 mg DAILY ORAL 11/16/20 09:00 12/16/20 08:59 11/16/20 09:07 Vitamin D (Vitamin D) 5,000 unit DAILY ORAL 11/16/20 09:00 12/16/20 08:59 11/16/20 09:05 Laboratory Tests 11/16/20 04:50: White Blood Count 14.4H, Red Blood Count 2.80L, Hemoglobin 9.7L, Hematocrit 30.4L, Mean Corpuscular Volume 109H, Mean Corpuscular Hemoglobin 34.6H, Mean Corpuscular Hemoglobin Concent 31.9L, Red Cell Distribution Width 20.0H, Platelet Count 348, Mean Platelet Volume 5.1L, Neutrophils (%) (Auto) 82.9H, Lymphocytes (%) (Auto) 8.7L, Monocytes (%) (Auto) 5.9, Eosinophils (%) (Auto) 1.5, Basophils (%) (Auto) 1.1, Sodium Level 136, Potassium Level 3.8, Chloride Level 99, Carbon Dioxide Level 31, Anion Gap 6, Blood Urea Nitrogen 25H, Creatinine 1.1, Estimat Glomerular Filtration Rate > 60, Glucose Level 130H, Calcium Level 8.2L, Magnesium Level 2.3, Total Bilirubin 0.6, Direct Bilirubin 0.3, Aspartate Amino Transf (AST/SGOT) 53H, Alanine Aminotransferase (ALT/SGPT) 15, Alkaline Phosphatase 159H, Total Protein 7.1, Albumin 1.7L, Prostate Specific Antigen 0.13 11/16/20 09:45: Prothrombin Time 12.8H, Prothromb Time International Ratio 1.2H, Activated Partial Thromboplast Time 32 Height (Feet): 6 Height (Inches): 1.00 Weight (Pounds): 200 General Appearance: no apparent distress Cardiovascular: tachycardia Respiratory/Chest: decreased breath sounds Abdomen: distended Kalin Pozo MD Nov 16, 2020 13:04
[2020-11-16 16:00] VITALS: BP 109/66
--- NOTE | 2020-11-16 16:10 | Pre-Procedure Note/Attestation ---
Pre-Procedure Note/Attestation Complete Prior to Procedure Planned Procedure: not applicable Procedure Narrative: paracentesis Indications for Procedure Pre-Operative Diagnosis: ascites Attestation I attest that I discussed the nature of the procedure; its benefits; risks and complications; and alternatives (and the risks and benefits of such alternatives), prior to the procedure, with the patient (or the patient's legal insurance representative). I attest that, if there was a reasonable possibility of needing a blood fermin sfusion, the patient (or the patient's legal insurance representative) was given the [facility] standardized written summary, pursuant to the Christopher Yohan Blood Safety Act ([place] Health and Safety Code # 1645, as amended). I attest that I re-evaluated the patient just prior to the surgery and that there has been no change in the patient's H&P, except as documented below: Aman Love MD Nov 16, 2020 16:10
--- NOTE | 2020-11-16 16:11 | Brief Operative Note ---
Immediate Post Operative Note Operative Note Pre-op Diagnosis: ascites Procedure: paracentesis Post-op Diagnosis: same as pre-op Surgeon: Primitivo Huber Anesthesia: local Specimen: none Complications: none Fluids: none Implant(s) used?: No Aman Huber MD Nov 16, 2020 16:11
--- NOTE | 2020-11-16 16:17 | Diagnostic Imaging Report ---
Indications: Ascites Technique: Ultrasound used to localize optimal puncture site. Sterile prepping and draping right lower quadrant. Local anesthesia with 1% lidocaine. Under real-time ultrasound guidance, puncture peritoneal space using paracentesis needle. Stylet removed. Catheter placed to vacuum bottle suction. Total 8.6 liters of fluid aspirated. Patient tolerated procedure well, without immediate complication. Findings: Followup sonography demonstrates near complete resolution of peritoneal fluid. Impression: Successful ultrasound-guided paracentesis, yielding 8.6 liters of fluid
--- NOTE | 2020-11-16 19:30 | NUR ---
NURSE HAND-OFF: Important Events on Shift:Paracentesis today and removed 8.6 L Patient Status: Stable Diet: CCHO(M) Pending Orders: N/A Pending Results/Labs:CBC, CMP on 11/17 Pending MD notification:N/A Latest Vital Signs: Temperature 97.6 , Pulse 80 , B/P 109 /66 , Respiratory Rate 22 , O2 SAT 94 , Bi-pap, O2 Flow Rate 3.0 . Vital Sign Comment: Stable Latest Childs Fall Score: 70 Fall Risk: High Risk Safety Measures: Call light Within Reach, Bed Alarm Zone 2, Side Rails Side Rails x2, Bed position Low and Locked. Fall Precautions: Yellow Socks Door Sign Patient Fall Education Report given to Judi MORA. Patient in stable condition.
[2020-11-16 20:00] VITALS: BP 96/63
--- NOTE | 2020-11-16 20:00 | NUR ---
NURSE NOTES: RECEIVED PATIENT LYING IN BED, AWAKE, VERBALLY RESPONSIVE, DENIES PAIN. NO SIGNS AND SYMPTOMS OF ACUTE CARDIO RESPIRATORY DISTRESS/SHORTNESS OF BREATH, DENIES CHEST PAIN, NO PERIPHERAL EDEMA NOTED, TOLERATING 02 3L VIA NASAL CANULA, SP02 94%. S/P PARACENTESIS, REMOVED 8.6 LITERS, TOLERATED WELL, NO ILL EFFECTS NOTED, ABDOMEN REMAIN DISTENDED/FIRM, DRESSING DRY AND INTACT TO SITE. NOTED IV ON BEDSIDE TABLE, PATIENT STATED THAT HE ACCIDENTALLY REMOVED IT, NO BLEEDING NOTED FROM SITE. REPOSITIONED PATIENT FOR COMFORT/PRESSURE RELIEF, TOLERATED WELL. SIDE RAILS UP X3, BED IN LOWEST POSITION FOR SAFETY, ENCOURAGED PATIENT TO UTILIZE CALL LIGHT FOR ASSISTANCE, VERBALIZED UNDERSTANDING. CONTINUE WITH CURRENT PLAN OF CARE. NAD.
[2020-11-17] VITALS (7 sets, daily range): BP systolic 91–126; BP diastolic 63–73
[2020-11-17] MEDS: HYDROcodone/Acetamin 5/325 tab ORAL PRN ×2 (01:11→21:28)
[2020-11-17] MEDS: Midodrine 10mg tab ORAL SCH ×3 (06:00→21:28)
[2020-11-17] MEDS: NovoLOG Insulin Flexpen SUBQ SCH ×4 (06:30→21:30)
[2020-11-17 06:46] LABS: BASOPHILS % (AUTO) 0.7 % (0.0-2.0); EOSINOPHILS % (AUTO) 1.3 % (0.0-3.0); HEMATOCRIT 28.3 % (42.0-52.0); HEMOGLOBIN 9.3 G/DL (14.2-18.0); LYMPHOCYTES % (AUTO) 7.9 % (20.0-45.0); MEAN CORPUSCULAR VOLUME 106 FL (80-99); MONOCYTES % (AUTO) 7.5 % (1.0-10.0); NEUTROPHILS % (AUTO) 82.6 % (45.0-75.0); PLATELET COUNT 280 K/UL (150-450); RED BLOOD COUNT 2.66 M/UL (4.70-6.10); RED CELL DISTRIBUTION WIDTH 19.7 % (11.6-14.8); WHITE BLOOD COUNT 13.4 K/UL (4.8-10.8)
--- NOTE | 2020-11-17 06:57 | NUR ---
NURSE NOTES: MIDODRINE/AM MEDICATION NOT ADMINISTERED, BLOOD PRESSURE 114/62
--- NOTE | 2020-11-17 07:18 | NUR ---
NURSE HAND-OFF: Important Events on Shift:[UNEVENTFUL NIGHT, NO COMPLAINTS OF GI DISCOMFORT, NO N/V] Patient Status: [STABLE] Diet: [CCHO M] Pending Orders: [AM LABS] Pending Results/Labs:[] Pending MD notification:[] Latest Vital Signs: Temperature 98.0 , Pulse 100 , B/P 103 /65 , Respiratory Rate 20 , O2 SAT 96 , Bi-pap, O2 Flow Rate 3.0 . Vital Sign Comment: [STABLE, AFEBRILE] Latest Childs Fall Score: 70 Fall Risk: High Risk Safety Measures: Call light Within Reach, Bed Alarm Zone 2, Side Rails Side Rails x3, Bed position Low and Locked. Fall Precautions: Yellow Socks Door Sign Patient Fall Education Report given to [ROXI THOMAS].
[2020-11-17 07:21] LABS: ALANINE AMINOTRANSFERASE 14 U/L (12-78); ALBUMIN 1.6 G/DL (3.4-5.0); ALBUMIN/GLOBULIN RATIO 0.3 (1.0-2.7); ALKALINE PHOSPHATASE 147 U/L (46-116); ANION GAP 7 mmol/L (5-15); ASPARTATE AMINO TRANSFERASE 44 U/L (15-37); BILIRUBIN,TOTAL 0.6 MG/DL (0.2-1.0); BLOOD UREA NITROGEN 22 mg/dL (7-18); CALCIUM 8.1 MG/DL (8.5-10.1); CARBON DIOXIDE 30 MMOL/L (21-32); CHLORIDE 98 MMOL/L (98-107); CREATININE 1.1 MG/DL (0.55-1.30); POTASSIUM 4.4 MMOL/L (3.5-5.1); SODIUM 135 MMOL/L (136-145)
[2020-11-17] MEDS: Spironolactone 50mg tab ORAL SCH (08:34)
[2020-11-17] MEDS: Vitamin D 1000 units Tab ORAL SCH (08:34)
[2020-11-17] MEDS: Magnesium Oxide 400mg tab ORAL SCH ×3 (08:34→17:48)
[2020-11-17] MEDS: Allopurinol 100mg Tab ORAL SCH (08:35)
[2020-11-17] MEDS: Phospha 250 Neutral tab ORAL SCH ×3 (08:35→17:47)
[2020-11-17] MEDS: Heparin 5000 units/ml inj SUBQ SCH ×2 (08:36→21:32)
--- NOTE | 2020-11-17 11:50 | Nephrology Progress Note ---
Assessment/Plan Problem List: (1) Renal failure (ARF), acute on chronic (2) Electrolyte imbalance (3) Hypokalemia (4) Cirrhosis (5) DMII (diabetes mellitus, type 2) (6) Anemia (7) HTN (hypertension) Assessment Renal failure most likely acute on chronic Electrolyte imbalances, hypokalemia Sepsis Hepatic encephalopathy, ascites, fatty liver Anemia History of EtOH abuse, history of tobacco abuse, history of drug abuse Diabetes mellitus type 2 Hypertension Lymphopenia, leukocytosis, hypoxia Plan November 17: Labs reviewed. Renal parameters stable. Medication list reviewed. On Lasix and Aldactone. We will continue to monitor blood chemistries and electrolytes. November 16: Labs reviewed. Electrolytes within normal limit now. Continue her current management. November 15: Labs reviewed. Low magnesium addressed. Continue per current management. November 14: Labs reviewed. Renal parameters are stable continue per current management. Vitamin D supplement given. November 13: Labs reviewed. Normal renal parameters. Abnormal electrolytes noted and addressed. Vitamin D level results still pending November 12: Labs reviewed. Serum creatinine now within normal limits. Much improved from renal standpoint of view. November 11: Labs reviewed. Serum creatinine 1.6. Stable from renal standpoint reviewed. November 10: Labs reviewed. Serum creatinine lowered to 1.9. Continue to monitor renal parameters. Magnesium supplement ordered. November 09: No CHEM panel drawn today. Will DC Hernandez due to pain in the urethra. We will continue to monitor renal parameters. Continue per consultants. November 08: Labs reviewed. Serum creatinine 2.3 unchanged. Electrolytes within normal limit. Continue per consultants. November 07: Labs reviewed. Serum creatinine down to 2.3. Continue to monitor electrolytes. Low magnesium addressed. November 06: Labs reviewed. Serum creatinine 2.5 unchanged. Continue per consultants. November 05: Labs reviewed. Serum creatinine plateauing. Status quo. Electrolyte acceptable. Now on oxygen by cannula. Continue per consultants. November 04 labs reviewed. Patient full code. On Venturi mask. Low potassium addressed. Serum creatinine rising. Continue to monitor renal parameters. Allopurinol initiated November 03: Labs reviewed. Medication list reviewed. Abnormal electrolyte addressed. Continue monitor renal parameters. Continue per consultants. Previously: Trial of 3% saline and albumin bolus Potassium supplement Monitor renal parameters, ammonia, electrolytes ordered Subjective ROS Limited/Unobtainable: No Constitutional: Reports: malaise Objective Objective Last 24 Hour Vital Signs Date Time Temp Pulse Resp B/P (MAP) Pulse Ox O2 Delivery O2 Flow Rate FiO2 11/17/20 11:45 98.6 107 20 108/68 (81) 97 11/17/20 09:00 Nasal Cannula 3.0 11/17/20 08:00 98.3 102 20 105/67 (80) 94 11/17/20 04:00 98.0 100 20 103/65 (78) 96 11/17/20 01:41 97.8 11/17/20 00:00 97.5 98 20 102/65 (77) 96 11/16/20 21:00 Nasal Cannula 3.0 11/16/20 20:00 97.8 98 20 96/63 (74) 93 11/16/20 18:58 94 Nasal Cannula 3.0 32 11/16/20 16:00 97.6 80 22 109/66 (80) 95 11/16/20 12:00 97.3 96 22 117/74 (88) 95 Intake and Output 11/16/20 11/17/20 19:00 07:00 Intake Total 720 ml 480 ml Output Total 750 ml Balance 720 ml -270 ml Intake Oral 720 ml 480 ml Output Urine Total 750 ml # Voids 2 1 # Bowel Movements 1 1 Current Medications Medications (Trade) Dose Ordered Sig/Kylah Route PRN Reason Start Time Stop Time Status Last Admin Dose Admin Acetaminophen (Tylenol) 500 mg Q6H PRN ORAL Mild Pain 11/02/20 08:30 12/02/20 08:29 11/13/20 08:33 Acetaminophen (Tylenol) 500 mg Q6H PRN ORAL fever > 100.2 11/02/20 08:45 12/02/20 08:44 Acetaminophen/ Hydrocodone Bitart (Orient 5/325) 1 tab Q6H PRN ORAL Severe Pain (Pain Scale 7-10) 11/11/20 10:15 11/18/20 10:14 11/17/20 01:11 Allopurinol (Zyloprim) 200 mg DAILY ORAL 11/04/20 15:00 12/04/20 14:59 11/17/20 08:35 Dextrose (Dextrose 50%) 25 ml Q30M PRN IV Hypoglycemia 11/01/20 18:30 01/30/21 18:29 Dextrose (Dextrose 50%) 50 ml Q30M PRN IV Hypoglycemia 11/01/20 18:30 01/30/21 18:29 Folic Acid (Folate) 3 mg DAILY ORAL 11/03/20 13:15 12/03/20 13:14 11/17/20 08:35 Furosemide (Lasix) 20 mg DAILY IV 11/13/20 10:00 12/13/20 09:59 11/17/20 08:33 Heparin Sodium (Porcine) (Heparin 5000 units/ml) 5,000 units EVERY 12 HOURS SUBQ 11/01/20 21:00 12/16/20 20:59 11/17/20 08:36 Insulin Aspart (NovoLOG) BEFORE MEALS AND HS SUBQ 11/01/20 21:00 01/30/21 20:59 11/16/20 21:08 Magnesium Oxide (Mag-Ox 400mg) 400 mg THREE TIMES A DAY ORAL 11/13/20 13:00 12/13/20 12:59 11/17/20 08:34 Midodrine (Pro-Amatine) 10 mg Q8HR ORAL 11/02/20 14:00 01/31/21 13:59 11/16/20 21:10 Pantoprazole (Protonix) 40 mg DAILY ORAL 11/14/20 09:00 12/14/20 08:59 11/17/20 08:34 Phosphorus (Phospha 250 Neutral) 250 mg THREE TIMES A DAY ORAL 11/13/20 13:00 12/13/20 12:59 11/17/20 08:35 Spironolactone (Aldactone) 100 mg DAILY ORAL 11/16/20 09:00 12/16/20 08:59 11/17/20 08:34 Vitamin D (Vitamin D) 5,000 unit DAILY ORAL 11/16/20 09:00 12/16/20 08:59 11/17/20 08:34 Laboratory Tests 11/17/20 05:00: White Blood Count 13.4H, Red Blood Count 2.66L, Hemoglobin 9.3L, Hematocrit 28.3L, Mean Corpuscular Volume 106H, Mean Corpuscular Hemoglobin 35.0H, Mean Corpuscular Hemoglobin Concent 33.0, Red Cell Distribution Width 19.7H, Platelet Count 280, Mean Platelet Volume 5.2L, Neutrophils (%) (Auto) 82.6H, Lymphocytes (%) (Auto) 7.9L, Monocytes (%) (Auto) 7.5, Eosinophils (%) (Auto) 1.3, Basophils (%) (Auto) 0.7, Sodium Level 135L, Potassium Level 4.4, Chloride Level 98, Carbon Dioxide Level 30, Anion Gap 7, Blood Urea Nitrogen 22H, Creatinine 1.1, Estimat Glomerular Filtration Rate > 60, Glucose Level 115H, Calcium Level 8.1L, Total Bilirubin 0.6, Aspartate Amino Transf (AST/SGOT) 44H, Alanine Aminotransferase (ALT/SGPT) 14, Alkaline Phosphatase 147H, Ammonia 50H, Total Protein 6.4, Albumin 1.6L, Globulin 4.8, Albumin/Globulin Ratio 0.3L Height (Feet): 6 Height (Inches): 1.00 Weight (Pounds): 200 General Appearance: no apparent distress Cardiovascular: tachycardia Respiratory/Chest: decreased breath sounds Abdomen: soft Kalin Pozo MD Nov 17, 2020 11:50
--- NOTE | 2020-11-17 12:01 | Consultation ---
History of Present Illness General Date patient seen: Nov 17, 2020 Reason for Hospitalization: Generalized Weakness Present Illness HPI Is a 60-year-old male currently admitted to [facility] for care identified to have deep tissue injury surgery called to evaluate assist with care patient seen patient evaluate, chart reviewed. Patient states he feels well. He does move around when he can. Unsure how he is form these deep tissue injuries. Labs noted imaging reviewed. Care plan initiated Allergies: Coded Allergies: No Known Allergies (Unverified , 10/02/16) COVID-19 Screening Contact w/high risk pt: No Experienced COVID-19 symptoms?: No Medication History Scheduled Clindamycin Hcl (Clindamycin Hcl), 300 MG ORAL THREE TIMES A DAY Metformin Hcl* (Metformin Hcl*), 500 MG ORAL TWICE A DAY, (Reported) Scheduled PRN Hydrocodone/Acetaminophen 5-325* (Hydrocodone/Acetaminophen 5-325*), 1 TAB ORAL Q6H PRN for For Pain Patient History History Provided By: Patient, Medical Record, PMD Healthcare decision maker N Resuscitation status Advanced Directive on File Past Medical/Surgical History Past Medical/Surgical History: (1) Hepatic encephalopathy (2) Hypokalemia (3) Ascites (4) Severe sepsis (5) Cirrhosis (6) AMS (altered mental status) (7) Electrolyte imbalance (8) Renal failure (ARF), acute on chronic (9) Anemia (10) HTN (hypertension) (11) DMII (diabetes mellitus, type 2) Review of Systems Review of Symptoms General ROS: no weight loss or fever Psychological ROS: no depression or mood changes, no memory loss Ophthalmic ROS: no visual changes or eye irritation ENT ROS: no nasal congestion, hearing loss, dizziness Allergy and Immunology ROS: no allergic symptoms or urticaria Hematological and Lymphatic ROS: no swollen glands, unusual bleeding or bruising Endocrine ROS: no polyuria, polydipsia, weight changes, temperature intolerance Respiratory ROS: no cough, shortness of breath, or wheezing Cardiovascular ROS: no chest pain or dyspnea on exertion Gastrointestinal ROS: denies abdominal pain, bright red blood in stool. Musculoskeletal ROS: no myalgias or arthralgias Neurological ROS: no TIA or stroke symptoms Dermatological ROS: no new or changing skin lesions, rashes or pruritis Physical Exam Physical Exam General appearance: alert, cooperative, no distress, appears stated age Head: Normocephalic, without obvious abnormality, atraumatic Eyes: conjunctivae/corneas clear. PERRL, EOM's intact. Fundi benign Throat: Lips, mucosa, and tongue normal. Teeth and gums normal Neck: supple, symmetrical, trachea midline, no adenopathy, thyroid: not enlarged, symmetric, no tenderness/mass/nodules, no carotid bruit and no JVD Lungs: clear to auscultation bilaterally Heart: regular rate and rhythm, S1, S2 normal, no murmur, click, rub or gallop Abdomen: soft, non-tender. Bowel sounds normal. No masses, no organomegaly Extremities: extremities normal, atraumatic, no cyanosis or edema Pulses: 2+ and symmetric Skin: Skin color, texture, turgor normal. No rashes or lesions Neurologic: Grossly normal Last 24 Hour Vital Signs Date Time Temp Pulse Resp B/P (MAP) Pulse Ox O2 Delivery O2 Flow Rate FiO2 11/17/20 11:45 98.6 107 20 108/68 (81) 97 11/17/20 09:00 Nasal Cannula 3.0 11/17/20 08:00 98.3 102 20 105/67 (80) 94 11/17/20 04:00 98.0 100 20 103/65 (78) 96 11/17/20 01:41 97.8 11/17/20 00:00 97.5 98 20 102/65 (77) 96 11/16/20 21:00 Nasal Cannula 3.0 11/16/20 20:00 97.8 98 20 96/63 (74) 93 11/16/20 18:58 94 Nasal Cannula 3.0 32 11/16/20 16:00 97.6 80 22 109/66 (80) 95 Intake and Output 11/16/20 11/17/20 19:00 07:00 Intake Total 720 ml 480 ml Output Total 750 ml Balance 720 ml -270 ml Intake Oral 720 ml 480 ml Output Urine Total 750 ml # Voids 2 1 # Bowel Movements 1 1 Laboratory Tests Test 11/17/20 05:00 White Blood Count 13.4 K/UL (4.8-10.8) H Red Blood Count 2.66 M/UL (4.70-6.10) L Hemoglobin 9.3 G/DL (14.2-18.0) L Hematocrit 28.3 % (42.0-52.0) L Mean Corpuscular Volume 106 FL (80-99) H Mean Corpuscular Hemoglobin 35.0 PG (27.0-31.0) H Mean Corpuscular Hemoglobin Concent 33.0 G/DL (32.0-36.0) Red Cell Distribution Width 19.7 % (11.6-14.8) H Platelet Count 280 K/UL (150-450) Mean Platelet Volume 5.2 FL (6.5-10.1) L Neutrophils (%) (Auto) 82.6 % (45.0-75.0) H Lymphocytes (%) (Auto) 7.9 % (20.0-45.0) L Monocytes (%) (Auto) 7.5 % (1.0-10.0) Eosinophils (%) (Auto) 1.3 % (0.0-3.0) Basophils (%) (Auto) 0.7 % (0.0-2.0) Sodium Level 135 MMOL/L (136-145) L Potassium Level 4.4 MMOL/L (3.5-5.1) Chloride Level 98 MMOL/L (98-107) Carbon Dioxide Level 30 MMOL/L (21-32) Anion Gap 7 mmol/L (5-15) Blood Urea Nitrogen 22 mg/dL (7-18) H Creatinine 1.1 MG/DL (0.55-1.30) Estimat Glomerular Filtration Rate > 60 mL/min (>60) Glucose Level 115 MG/DL (74-106) H Calcium Level 8.1 MG/DL (8.5-10.1) L Total Bilirubin 0.6 MG/DL (0.2-1.0) Aspartate Amino Transf (AST/SGOT) 44 U/L (15-37) H Alanine Aminotransferase (ALT/SGPT) 14 U/L (12-78) Alkaline Phosphatase 147 U/L (46-116) H Ammonia 50 umol/L (11-32) H Total Protein 6.4 G/DL (6.4-8.2) Albumin 1.6 G/DL (3.4-5.0) L Globulin 4.8 g/dL Albumin/Globulin Ratio 0.3 (1.0-2.7) L Height (Feet): 6 Height (Inches): 1.00 Weight (Pounds): 200 Medications Current Medications Medications (Trade) Dose Ordered Sig/Kylah Route PRN Reason Start Time Stop Time Status Last Admin Dose Admin Acetaminophen (Tylenol) 500 mg Q6H PRN ORAL Mild Pain 11/02/20 08:30 12/02/20 08:29 11/13/20 08:33 Acetaminophen (Tylenol) 500 mg Q6H PRN ORAL fever > 100.2 11/02/20 08:45 12/02/20 08:44 Acetaminophen/ Hydrocodone Bitart ([place] 5/325) 1 tab Q6H PRN ORAL Severe Pain (Pain Scale 7-10) 11/11/20 10:15 11/18/20 10:14 11/17/20 01:11 Allopurinol (Zyloprim) 200 mg DAILY ORAL 11/04/20 15:00 12/04/20 14:59 11/17/20 08:35 Dextrose (Dextrose 50%) 25 ml Q30M PRN IV Hypoglycemia 11/01/20 18:30 01/30/21 18:29 Dextrose (Dextrose 50%) 50 ml Q30M PRN IV Hypoglycemia 11/01/20 18:30 01/30/21 18:29 Folic Acid (Folate) 3 mg DAILY ORAL 11/03/20 13:15 12/03/20 13:14 11/17/20 08:35 Furosemide (Lasix) 20 mg DAILY IV 11/13/20 10:00 12/13/20 09:59 11/17/20 08:33 Heparin Sodium (Porcine) (Heparin 5000 units/ml) 5,000 units EVERY 12 HOURS SUBQ 11/01/20 21:00 12/16/20 20:59 11/17/20 08:36 Insulin Aspart (NovoLOG) BEFORE MEALS AND HS SUBQ 11/01/20 21:00 01/30/21 20:59 11/16/20 21:08 Magnesium Oxide (Mag-Ox 400mg) 400 mg THREE TIMES A DAY ORAL 11/13/20 13:00 12/13/20 12:59 11/17/20 08:34 Midodrine (Pro-Amatine) 10 mg Q8HR ORAL 11/02/20 14:00 01/31/21 13:59 11/16/20 21:10 Pantoprazole (Protonix) 40 mg DAILY ORAL 11/14/20 09:00 12/14/20 08:59 11/17/20 08:34 Phosphorus (Phospha 250 Neutral) 250 mg THREE TIMES A DAY ORAL 11/13/20 13:00 12/13/20 12:59 11/17/20 08:35 Spironolactone (Aldactone) 100 mg DAILY ORAL 11/16/20 09:00 12/16/20 08:59 11/17/20 08:34 Vitamin D (Vitamin D) 5,000 unit DAILY ORAL 11/16/20 09:00 12/16/20 08:59 11/17/20 08:34 Assessment/Plan Problem List: (1) Deep tissue injury Assessment & Plan: Pt presented on admission with DTPI Thoracic Spine(L)1.8cm x (W)1cm. Base of Pressure Injury is purpuric with surrounding non-blanchable erythema. Pt complained of tenderness at site. Non-Blanchable erythema without induration noted to Sacrum,R and L Gluteal cheeks including Bilat Ischial tuberosities. Rocker bottom foot noted to Both R and L feet. Both heels are callused,dry and easily blanchable. Tx.Plan: Apply Cavilon Skin Barrier To Thoracic DTPI. Cover with Optifoam drsg. Change every 3 days and prn. Apply Moisture Barrier Paste to Sacrum. Cover with Optifoam drsg. Change every 3 days and prn. Apply Cavilon Skin Barrier to R and L gluteal cheeks and Bilat Ischi al tuberosities with each Incontinence care. Reposition at least every 2Hours or as tolerated. Off-load heels with pillow. ICD Codes: T14.8XXA - Other injury of unspecified body region, initial encounter SNOMED: 159003861 (2) Hepatic encephalopathy ICD Codes: K72.90 - Hepatic failure, unspecified without coma; R65.20 - Severe sepsis without septic shock SNOMED: 39421722 (3) Hypokalemia ICD Codes: E87.6 - Hypokalemia; R65.20 - Severe sepsis without septic shock SNOMED: 24705352 (4) Ascites ICD Codes: R18.8 - Other ascites SNOMED: 981414113 (5) Severe sepsis ICD Codes: A41.9 - Sepsis, unspecified organism; R65.20 - Severe sepsis without septic shock SNOMED: 17280139 (6) Cirrhosis Assessment & Plan: There is compressive atelectasis right lower lobe. Small right effusion noted. Right hemidiaphragm is elevated. There is a large amount of ascites. Slight nodularity of the hepatic contour noted suggestive of underlying cirrhotic changes. Spleen contains some scattered granulomas. Gallbladder is isodense to liver likely containing tumefactive sludge. The pancreas is unremarkable. Adrenals are normal in morphology. The kidneys are normal in size, shape and axis. Small bowel loops are nondistended. The colon is also nondistended with average amount of stool. The appendix is not visualized. There is no free air. No pathologic adenopathy demonstrated. Urinary bladder appears unremarkable. Degenerative changes of the lumbar spine noted. IMPRESSION: CIRRHOSIS WITH LARGE AMOUNT OF ASCITES. SPLENIC GRANULOMAS. SLUDGE IN THE GALLBLADDER. SMALL RIGHT PLEURAL EFFUSION WITH COMPRESSIVE ATELECTASIS RIGHT LOWER LOBE. ELEVATED RIGHT HEMIDIAPHRAGM. ICD Codes: K74.60 - Unspecified cirrhosis of liver SNOMED: 45547897 (7) AMS (altered mental status) ICD Codes: R41.82 - Altered mental status, unspecified SNOMED: 377527137 (8) Electrolyte imbalance ICD Codes: E87.8 - Other disorders of electrolyte and fluid balance, not elsewhere classified SNOMED: 336231538 (9) Renal failure (ARF), acute on chronic ICD Codes: N17.9 - Acute kidney failure, unspecified; N18.9 - Chronic kidney disease, unspecified SNOMED: 415137973 (10) Anemia ICD Codes: D64.9 - Anemia, unspecified SNOMED: 278620788 (11) HTN (hypertension) ICD Codes: I10 - Essential (primary) hypertension SNOMED: 98129274 (12) DMII (diabetes mellitus, type 2) ICD Codes: E11.9 - Type 2 diabetes mellitus without complications SNOMED: 35777150 Theodore Alves Nov 17, 2020 12:01
--- NOTE | 2020-11-17 14:05 | NUR ---
NURSE NOTES: Midodrine 10mg non-administered; patient's BP 109/71 outside of parameters
--- NOTE | 2020-11-17 14:30 | NUR ---
NURSE NOTES: Wound photos taken and wound care administered as ordered
--- NOTE | 2020-11-17 16:12 | Internal Med Progress Note ---
Subjective Date of Service: Nov 17, 2020 Physician Name Jered Case Attending Physician Ramon Coombs MD Current Medications Medications (Trade) Dose Ordered Sig/Kylah Route PRN Reason Start Time Stop Time Status Last Admin Dose Admin Acetaminophen (Tylenol) 500 mg Q6H PRN ORAL Mild Pain 11/02/20 08:30 12/02/20 08:29 11/13/20 08:33 Acetaminophen (Tylenol) 500 mg Q6H PRN ORAL fever > 100.2 11/02/20 08:45 12/02/20 08:44 Acetaminophen/ Hydrocodone Bitart ([place] 5/325) 1 tab Q6H PRN ORAL Severe Pain (Pain Scale 7-10) 11/11/20 10:15 11/18/20 10:14 11/17/20 01:11 Allopurinol (Zyloprim) 200 mg DAILY ORAL 11/04/20 15:00 12/04/20 14:59 11/17/20 08:35 Dextrose (Dextrose 50%) 25 ml Q30M PRN IV Hypoglycemia 11/01/20 18:30 01/30/21 18:29 Dextrose (Dextrose 50%) 50 ml Q30M PRN IV Hypoglycemia 11/01/20 18:30 01/30/21 18:29 Folic Acid (Folate) 3 mg DAILY ORAL 11/03/20 13:15 12/03/20 13:14 11/17/20 08:35 Furosemide (Lasix) 20 mg DAILY IV 11/13/20 10:00 12/13/20 09:59 11/17/20 08:33 Heparin Sodium (Porcine) (Heparin 5000 units/ml) 5,000 units EVERY 12 HOURS SUBQ 11/01/20 21:00 12/16/20 20:59 11/17/20 08:36 Insulin Aspart (NovoLOG) BEFORE MEALS AND HS SUBQ 11/01/20 21:00 01/30/21 20:59 11/16/20 21:08 Magnesium Oxide (Mag-Ox 400mg) 400 mg THREE TIMES A DAY ORAL 11/13/20 13:00 12/13/20 12:59 11/17/20 12:03 Midodrine (Pro-Amatine) 10 mg Q8HR ORAL 11/02/20 14:00 01/31/21 13:59 11/16/20 21:10 Pantoprazole (Protonix) 40 mg DAILY ORAL 11/14/20 09:00 12/14/20 08:59 11/17/20 08:34 Phosphorus (Phospha 250 Neutral) 250 mg THREE TIMES A DAY ORAL 11/13/20 13:00 12/13/20 12:59 11/17/20 12:03 Spironolactone (Aldactone) 100 mg DAILY ORAL 11/16/20 09:00 12/16/20 08:59 11/17/20 08:34 Vitamin D (Vitamin D) 5,000 unit DAILY ORAL 11/16/20 09:00 12/16/20 08:59 11/17/20 08:34 Allergies: Coded Allergies: No Known Allergies (Unverified , 10/02/16) ROS Limited/Unobtainable: No Constitutional: Reports: no symptoms HEENT: Reports: no symptoms Cardiovascular: Reports: no symptoms Respiratory: Reports: no symptoms Gastrointestinal/Abdominal: Reports: no symptoms Genitourinary: Reports: no symptoms Neurologic/Psychiatric: Reports: no symptoms Subjective 60 YO M with history of alcohol dependence admitted with shortness of breath. Now respiratroy failure. Cover for Int Med-DR Coombs. S/P paracentesis 11/02/20 Objective Last Vital Signs Date Time Temp Pulse Resp B/P (MAP) Pulse Ox O2 Delivery O2 Flow Rate FiO2 11/17/20 16:00 98.0 102 20 103/64 (77) 98 11/17/20 09:00 Nasal Cannula 3.0 11/16/20 18:58 32 Laboratory Tests Test 11/17/20 05:00 White Blood Count 13.4 K/UL (4.8-10.8) H Red Blood Count 2.66 M/UL (4.70-6.10) L Hemoglobin 9.3 G/DL (14.2-18.0) L Hematocrit 28.3 % (42.0-52.0) L Mean Corpuscular Volume 106 FL (80-99) H Mean Corpuscular Hemoglobin 35.0 PG (27.0-31.0) H Mean Corpuscular Hemoglobin Concent 33.0 G/DL (32.0-36.0) Red Cell Distribution Width 19.7 % (11.6-14.8) H Platelet Count 280 K/UL (150-450) Mean Platelet Volume 5.2 FL (6.5-10.1) L Neutrophils (%) (Auto) 82.6 % (45.0-75.0) H Lymphocytes (%) (Auto) 7.9 % (20.0-45.0) L Monocytes (%) (Auto) 7.5 % (1.0-10.0) Eosinophils (%) (Auto) 1.3 % (0.0-3.0) Basophils (%) (Auto) 0.7 % (0.0-2.0) Sodium Level 135 MMOL/L (136-145) L Potassium Level 4.4 MMOL/L (3.5-5.1) Chloride Level 98 MMOL/L (98-107) Carbon Dioxide Level 30 MMOL/L (21-32) Anion Gap 7 mmol/L (5-15) Blood Urea Nitrogen 22 mg/dL (7-18) H Creatinine 1.1 MG/DL (0.55-1.30) Estimat Glomerular Filtration Rate > 60 mL/min (>60) Glucose Level 115 MG/DL (74-106) H Calcium Level 8.1 MG/DL (8.5-10.1) L Total Bilirubin 0.6 MG/DL (0.2-1.0) Aspartate Amino Transf (AST/SGOT) 44 U/L (15-37) H Alanine Aminotransferase (ALT/SGPT) 14 U/L (12-78) Alkaline Phosphatase 147 U/L (46-116) H Ammonia 50 umol/L (11-32) H Total Protein 6.4 G/DL (6.4-8.2) Albumin 1.6 G/DL (3.4-5.0) L Globulin 4.8 g/dL Albumin/Globulin Ratio 0.3 (1.0-2.7) L Intake and Output 11/16/20 11/17/20 19:00 07:00 Intake Total 720 ml 480 ml Output Total 750 ml Balance 720 ml -270 ml Intake Oral 720 ml 480 ml Output Urine Total 750 ml # Voids 2 1 # Bowel Movements 1 1 Objective Objective General: No acute distress, awake and alert HEENT: NCAT, sclera anicteric, PERRL, EOMI. Neck: Supple, no significant jugular venous distention, Lungs: Nasal canula; Fair inspiratory effort, , no Wheeze or Rales. Heart: Regular rate and rhythm, normal S1/S2, no murmurs Abdomen: soft, nontender, +distended. positive fluid shift, bowel sound present. / Rectal: Refused and deferred. Extremities: No Cyanosis , clubbing or edema. Neuro: A&O x 3, Able to move all extremities Skin: warm, no rash Assessment/Plan Assessment/Plan Assessment/Plan Assessment/Plan Sepsis Acute Hypoxia on BiPAP >> NRB mask >> venturi mask>>nasal canula alcohol abuse Liver Cirrhosis, Fatty liver Massive ascites renal failure DM2 HTN Plan: ABX=S/P vanco and Zosyn High volume paracentesis, COVID PCR=Neg F/u BCx GI=Dr Encarnacion Nephrol=Dr Pozo S/P paracentesis 11/02/20 Jered Case MD Nov 17, 2020 16:12
--- NOTE | 2020-11-17 19:27 | NUR ---
NURSE HAND-OFF: Important Events on Shift:[none] Patient Status: stable Diet: ccho med Pending Orders: Pending Results/Labs: Pending MD notification: Latest Vital Signs: Temperature 98.0 , Pulse 102 , B/P 103 /64 , Respiratory Rate 20 , O2 SAT 98 , Bi-pap, O2 Flow Rate 3.0 . Vital Sign Comment: stable Latest Childs Fall Score: 70 Fall Risk: High Risk Safety Measures: Call light Within Reach, Bed Alarm Zone 2, Side Rails Side Rails x3, Bed position Low and Locked. Fall Precautions: Yellow Socks Door Sign Patient Fall Education Report given to Chely DIANE.
--- NOTE | 2020-11-17 19:28 | NUR ---
NURSE NOTES: Patient is in bed, awake and alert x3. On 3L nasal cannula, with no signs of distress or SOB. IV intact and patent. Bed locked, and in lowest position. Call light is within reach. Will continue plan of care.
[2020-11-18 03:58] VITALS: BP 129/70
[2020-11-18] MEDS: Midodrine 10mg tab ORAL SCH ×3 (05:14→22:00)
[2020-11-18] MEDS: NovoLOG Insulin Flexpen SUBQ SCH ×4 (06:30→20:20)
[2020-11-18 06:32] LABS: BASOPHILS % (AUTO) 1.1 % (0.0-2.0); EOSINOPHILS % (AUTO) 1.2 % (0.0-3.0); HEMATOCRIT 29.2 % (42.0-52.0); HEMOGLOBIN 9.5 G/DL (14.2-18.0); LYMPHOCYTES % (AUTO) 8.9 % (20.0-45.0); MEAN CORPUSCULAR VOLUME 107 FL (80-99); MONOCYTES % (AUTO) 9.6 % (1.0-10.0); NEUTROPHILS % (AUTO) 79.2 % (45.0-75.0); PLATELET COUNT 284 K/UL (150-450); RED BLOOD COUNT 2.74 M/UL (4.70-6.10); RED CELL DISTRIBUTION WIDTH 19.9 % (11.6-14.8); WHITE BLOOD COUNT 12.2 K/UL (4.8-10.8)
--- NOTE | 2020-11-18 06:36 | NUR ---
NURSE HAND-OFF: Important Events on Shift: No acute events Patient Status: Stable Diet: CCHO med Pending Orders: N/A Pending Results/Labs: Ammonia, mag, phos, CMP, CBC, Uric acid Pending MD notification: N/A Latest Vital Signs: Temperature 97.5 , Pulse 84 , B/P 129 /70 , Respiratory Rate 18 , O2 SAT 97 , Bi-pap, O2 Flow Rate 3.0 . Vital Sign Comment: N/A Latest Childs Fall Score: 70 Fall Risk: High Risk Safety Measures: Call light Within Reach, Bed Alarm Zone 2, Side Rails Side Rails x3, Bed position Low and Locked. Fall Precautions: Yellow Socks Door Sign Patient Fall Education
[2020-11-18 06:52] LABS: ALANINE AMINOTRANSFERASE 14 U/L (12-78); ALBUMIN 1.5 G/DL (3.4-5.0); ALBUMIN/GLOBULIN RATIO 0.3 (1.0-2.7); ALKALINE PHOSPHATASE 128 U/L (46-116); ANION GAP 4 mmol/L (5-15); ASPARTATE AMINO TRANSFERASE 42 U/L (15-37); BILIRUBIN,TOTAL 0.9 MG/DL (0.2-1.0); BLOOD UREA NITROGEN 21 mg/dL (7-18); CALCIUM 8.1 MG/DL (8.5-10.1); CARBON DIOXIDE 32 MMOL/L (21-32); CHLORIDE 99 MMOL/L (98-107); POTASSIUM 4.4 MMOL/L (3.5-5.1); SODIUM 135 MMOL/L (136-145)
--- NOTE | 2020-11-18 07:10 | NUR ---
NURSE NOTES: Handoff received from Chely DIANE. PAtient is awake and alert, no signs of acute distress noted, breathing is even and unlabored on 3L nasal cannula. Right forearm Iv is intact and saline locked. Condom catheter is draining to gravity. Bed is low and locked, side rails up x2, call light is within reach.
[2020-11-18 08:00] VITALS: BP 102/61
[2020-11-18] MEDS: Phospha 250 Neutral tab ORAL SCH ×3 (08:34→17:14)
[2020-11-18] MEDS: Vitamin D 1000 units Tab ORAL SCH (08:34)
[2020-11-18] MEDS: Magnesium Oxide 400mg tab ORAL SCH ×3 (08:35→17:14)
[2020-11-18] MEDS: Spironolactone 50mg tab ORAL SCH (08:35)
[2020-11-18] MEDS: Allopurinol 100mg Tab ORAL SCH (08:36)
[2020-11-18] MEDS: Heparin 5000 units/ml inj SUBQ SCH ×2 (08:39→20:12)
--- NOTE | 2020-11-18 09:05 | Infectious Diseases Prog Note ---
Assessment/Plan 60yo M with: Sepsis Afebrile Hypoxia on BiPAP >> NRB mask >> venti mask Leukocytosis to 14, improving Lymphopenia 11/01 BCx NTD COVID PCR neg CXR: Elevated right hemidiaphragm. Possible right basilar airspace disease and right effusion. CTH: No acute process EtOH abuse Cirrhosis, Fatty liver Masive ascites Elevated AST to 48 Acute hep panel neg 11/01 CT A/P: CIRRHOSIS WITH LARGE AMOUNT OF ASCITES. SPLENIC GRANULOMAS. SLUDGE IN THE GALLBLADDER. SMALL RIGHT PLEURAL EFFUSION WITH COMPRESSIVE ATELECTASIS RIGHT LOWER LOBE. ELEVATED RIGHT HEMIDIAPHRAGM. 11/02 Paracentesis, 10.2L removed 838 RBC, 142 WBC, 2%PMN, 94%Jackson's Cx - NTD DAVIDE vs CKD, Cr 2.4, improving HIV screen neg PMH: EtOH abuse, stopped drinking in Sep 2020 Fatty liver DM2 HTN Plan: Cont to monitor off abx Trend WBC, overall stable/improving off abx 11/11 SP Zosyn #10 11/03 SP vanco #2 Monitor CBC/CMP Monitor temp curve, hemodynamics Monitor resp status D/w RN Thank you for this consult. [facility] will continue to follow. Subjective Allergies: Coded Allergies: No Known Allergies (Unverified , 10/02/16) AF NAD on 3L NC WBC 12, improving No new complaints Objective Last 24 Hour Vital Signs Date Time Temp Pulse Resp B/P (MAP) Pulse Ox O2 Delivery O2 Flow Rate FiO2 11/18/20 03:58 97.5 84 18 129/70 (89) 97 11/17/20 23:39 98.1 86 18 126/73 (90) 97 11/17/20 22:00 98 Nasal Cannula 3.0 32 11/17/20 21:00 Nasal Cannula 3.0 11/17/20 20:00 97.2 101 20 91/63 (72) 98 11/17/20 16:00 98.0 102 20 103/64 (77) 98 11/17/20 11:45 98.6 107 20 108/68 (81) 97 Height (Feet): 6 Height (Inches): 1.00 Weight (Pounds): 200 Gen: NAD HEENT: NCAT, EOMI Pulm: BL chest rise Abd: Distended, soft, +fluid wave Ext: No c/c/e Neuro: Awake, interactive Laboratory Tests Test 11/18/20 05:00 White Blood Count 12.2 K/UL (4.8-10.8) H Red Blood Count 2.74 M/UL (4.70-6.10) L Hemoglobin 9.5 G/DL (14.2-18.0) L Hematocrit 29.2 % (42.0-52.0) L Mean Corpuscular Volume 107 FL (80-99) H Mean Corpuscular Hemoglobin 34.7 PG (27.0-31.0) H Mean Corpuscular Hemoglobin Concent 32.5 G/DL (32.0-36.0) Red Cell Distribution Width 19.9 % (11.6-14.8) H Platelet Count 284 K/UL (150-450) Mean Platelet Volume 5.0 FL (6.5-10.1) L Neutrophils (%) (Auto) 79.2 % (45.0-75.0) H Lymphocytes (%) (Auto) 8.9 % (20.0-45.0) L Monocytes (%) (Auto) 9.6 % (1.0-10.0) Eosinophils (%) (Auto) 1.2 % (0.0-3.0) Basophils (%) (Auto) 1.1 % (0.0-2.0) Sodium Level 135 MMOL/L (136-145) L Potassium Level 4.4 MMOL/L (3.5-5.1) Chloride Level 99 MMOL/L (98-107) Carbon Dioxide Level 32 MMOL/L (21-32) Anion Gap 4 mmol/L (5-15) L Blood Urea Nitrogen 21 mg/dL (7-18) H Creatinine 1.0 MG/DL (0.55-1.30) Estimat Glomerular Filtration Rate > 60 mL/min (>60) Glucose Level 94 MG/DL (74-106) Uric Acid 4.3 MG/DL (2.6-7.2) Calcium Level 8.1 MG/DL (8.5-10.1) L Phosphorus Level 4.0 MG/DL (2.5-4.9) Magnesium Level 1.7 MG/DL (1.8-2.4) L Total Bilirubin 0.9 MG/DL (0.2-1.0) Aspartate Amino Transf (AST/SGOT) 42 U/L (15-37) H Alanine Aminotransferase (ALT/SGPT) 14 U/L (12-78) Alkaline Phosphatase 128 U/L (46-116) H Ammonia 46 umol/L (11-32) H Total Protein 6.4 G/DL (6.4-8.2) Albumin 1.5 G/DL (3.4-5.0) L Globulin 4.9 g/dL Albumin/Globulin Ratio 0.3 (1.0-2.7) L Current Medications Medications (Trade) Dose Ordered Sig/Kylah Route PRN Reason Start Time Stop Time Status Last Admin Dose Admin Acetaminophen (Tylenol) 500 mg Q6H PRN ORAL Mild Pain 11/02/20 08:30 12/02/20 08:29 11/13/20 08:33 Acetaminophen (Tylenol) 500 mg Q6H PRN ORAL fever > 100.2 11/02/20 08:45 12/02/20 08:44 Acetaminophen/ Hydrocodone Bitart ([place] 5/325) 1 tab Q6H PRN ORAL Severe Pain (Pain Scale 7-10) 11/11/20 10:15 11/18/20 10:14 11/17/20 21:28 Allopurinol (Zyloprim) 200 mg DAILY ORAL 11/04/20 15:00 12/04/20 14:59 11/18/20 08:36 Dextrose (Dextrose 50%) 25 ml Q30M PRN IV Hypoglycemia 11/01/20 18:30 01/30/21 18:29 Dextrose (Dextrose 50%) 50 ml Q30M PRN IV Hypoglycemia 11/01/20 18:30 01/30/21 18:29 Folic Acid (Folate) 3 mg DAILY ORAL 11/03/20 13:15 12/03/20 13:14 11/18/20 08:36 Furosemide (Lasix) 20 mg DAILY IV 11/13/20 10:00 12/13/20 09:59 11/18/20 08:37 Heparin Sodium (Porcine) (Heparin 5000 units/ml) 5,000 units EVERY 12 HOURS SUBQ 11/01/20 21:00 12/16/20 20:59 11/18/20 08:39 Insulin Aspart (NovoLOG) BEFORE MEALS AND HS SUBQ 11/01/20 21:00 01/30/21 20:59 11/17/20 21:30 Magnesium Oxide (Mag-Ox 400mg) 400 mg THREE TIMES A DAY ORAL 11/13/20 13:00 12/13/20 12:59 11/18/20 08:35 Midodrine (Pro-Amatine) 10 mg Q8HR ORAL 11/02/20 14:00 01/31/21 13:59 11/17/20 21:28 Pantoprazole (Protonix) 40 mg DAILY ORAL 11/14/20 09:00 12/14/20 08:59 11/18/20 08:36 Phosphorus (Phospha 250 Neutral) 250 mg THREE TIMES A DAY ORAL 11/13/20 13:00 12/13/20 12:59 11/18/20 08:34 Spironolactone (Aldactone) 100 mg DAILY ORAL 11/16/20 09:00 12/16/20 08:59 11/18/20 08:35 Vitamin D (Vitamin D) 5,000 unit DAILY ORAL 11/16/20 09:00 12/16/20 08:59 11/18/20 08:34 Viviana Casper M.D. Nov 18, 2020 09:05
--- NOTE | 2020-11-18 09:25 | NUR ---
RD ASSESSMENT & RECOMMENDATIONS SEE CARE ACTIVITY FOR COMPLETE ASSESSMENT DAILY ESTIMATED NEEDS: Needs based on Liver, DM 85.1 25-30 kcals/kg 4167-0616 total kcals 1.25-1.5 g protein/kg 106-128 g total protein Fluid per MD NUTRITION DIAGNOSIS: Decreased sodium and fat needs r/t liver cirrhosis as evidenced by s/p paracentesis 10.2L removed, elevated T bili and LFT's, ammonia elevated on adm, now wnl. CURRENT DIET: [facility] MED PO DIET RECOMMENDATIONS: Low Fat/ Low Sodium textures as tolerated ADDITIONAL RECOMMENDATIONS: 1) With BG >150, rec added CCHO MED diet 2) Obtain a calibrated bed scale wt 3) On lactulose, monitor lytes and hydration status 4) AM snacks daily 5) Skin integrity-> add TERRENCE BID
--- NOTE | 2020-11-18 11:48 | Surgery Progress Note ---
Surgery Progress Note Subjective Additional Comments wbc trending down no n/v feels well no complaints Objective Last 24 Hour Vital Signs Date Time Temp Pulse Resp B/P (MAP) Pulse Ox O2 Delivery O2 Flow Rate FiO2 11/18/20 09:00 Nasal Cannula 3.0 11/18/20 08:00 98.2 96 22 102/61 (75) 92 11/18/20 07:00 92 Nasal Cannula 3.0 32 11/18/20 03:58 97.5 84 18 129/70 (89) 97 11/17/20 23:39 98.1 86 18 126/73 (90) 97 11/17/20 22:00 98 Nasal Cannula 3.0 32 11/17/20 21:00 Nasal Cannula 3.0 11/17/20 20:00 97.2 101 20 91/63 (72) 98 11/17/20 16:00 98.0 102 20 103/64 (77) 98 I&O Intake and Output 11/17/20 11/18/20 19:00 07:00 Intake Total 840 ml 360 ml Output Total 1200 ml 600 ml Balance -360 ml -240 ml Intake Oral 840 ml 360 ml Output Urine Total 1200 ml 600 ml # Voids 1 # Bowel Movements 1 1 Dressing: saturated Cardiovascular: RSR Respiratory: decreased breath sounds Abdomen: soft, non-tender, present bowel sounds, non-distended Extremities: no edema, no tenderness, no cyanosis Laboratory Tests Test 11/18/20 05:00 White Blood Count 12.2 K/UL (4.8-10.8) H Red Blood Count 2.74 M/UL (4.70-6.10) L Hemoglobin 9.5 G/DL (14.2-18.0) L Hematocrit 29.2 % (42.0-52.0) L Mean Corpuscular Volume 107 FL (80-99) H Mean Corpuscular Hemoglobin 34.7 PG (27.0-31.0) H Mean Corpuscular Hemoglobin Concent 32.5 G/DL (32.0-36.0) Red Cell Distribution Width 19.9 % (11.6-14.8) H Platelet Count 284 K/UL (150-450) Mean Platelet Volume 5.0 FL (6.5-10.1) L Neutrophils (%) (Auto) 79.2 % (45.0-75.0) H Lymphocytes (%) (Auto) 8.9 % (20.0-45.0) L Monocytes (%) (Auto) 9.6 % (1.0-10.0) Eosinophils (%) (Auto) 1.2 % (0.0-3.0) Basophils (%) (Auto) 1.1 % (0.0-2.0) Sodium Level 135 MMOL/L (136-145) L Potassium Level 4.4 MMOL/L (3.5-5.1) Chloride Level 99 MMOL/L (98-107) Carbon Dioxide Level 32 MMOL/L (21-32) Anion Gap 4 mmol/L (5-15) L Blood Urea Nitrogen 21 mg/dL (7-18) H Creatinine 1.0 MG/DL (0.55-1.30) Estimat Glomerular Filtration Rate > 60 mL/min (>60) Glucose Level 94 MG/DL (74-106) Uric Acid 4.3 MG/DL (2.6-7.2) Calcium Level 8.1 MG/DL (8.5-10.1) L Phosphorus Level 4.0 MG/DL (2.5-4.9) Magnesium Level 1.7 MG/DL (1.8-2.4) L Total Bilirubin 0.9 MG/DL (0.2-1.0) Aspartate Amino Transf (AST/SGOT) 42 U/L (15-37) H Alanine Aminotransferase (ALT/SGPT) 14 U/L (12-78) Alkaline Phosphatase 128 U/L (46-116) H Ammonia 46 umol/L (11-32) H Total Protein 6.4 G/DL (6.4-8.2) Albumin 1.5 G/DL (3.4-5.0) L Globulin 4.9 g/dL Albumin/Globulin Ratio 0.3 (1.0-2.7) L Plan Problems: (1) Deep tissue injury Assessment & Plan: Pt presented on admission with DTPI Thoracic Spine(L)1.8cm x (W)1cm. Base of Pressure Injury is purpuric with surrounding non-blanchable erythema. Pt complained of tenderness at site. Non-Blanchable erythema without induration noted to Sacrum,R and L Gluteal cheeks including Bilat Ischial tuberosities. Rocker bottom foot noted to Both R and L feet. Both heels are callused,dry and easily blanchable. Tx.Plan: Apply Cavilon Skin Barrier To Thoracic DTPI. Cover with Optifoam drsg. Change every 3 days and prn. Apply Moisture Barrier Paste to Sacrum. Cover with Optifoam drsg. Change every 3 days and prn. Apply Cavilon Skin Barrier to R and L gluteal cheeks and Bilat Ischial tuberosities with each Incontinence care. Reposition at least every 2Hours or as tolerated. Off-load heels with pillow. (2) Hepatic encephalopathy (3) Hypokalemia (4) Ascites (5) Severe sepsis (6) Cirrhosis Assessment & Plan: There is compressive atelectasis right lower lobe. Small right effusion noted. Right hemidiaphragm is elevated. There is a large amount of ascites. Slight nodularity of the hepatic contour noted suggestive of underlying cirrhotic changes. Spleen contains some scattered granulomas. Gallbladder is isodense to liver likely containing tumefactive sludge. The pancreas is unremarkable. Adrenals are normal in morphology. The kidneys are normal in size, shape and axis. Small bowel loops are nondistended. The colon is also nondistended with average amount of stool. The appendix is not visualized. There is no free air. No pathologic adenopathy demonstrated. Urinary bladder appears unremarkable. Degenerative changes of the lumbar spine noted. IMPRESSION: CIRRHOSIS WITH LARGE AMOUNT OF ASCITES. SPLENIC GRANULOMAS. SLUDGE IN THE GALLBLADDER. SMALL RIGHT PLEURAL EFFUSION WITH COMPRESSIVE ATELECTASIS RIGHT LOWER LOBE. ELEVATED RIGHT HEMIDIAPHRAGM. (7) AMS (altered mental status) (8) Electrolyte imbalance (9) Renal failure (ARF), acute on chronic (10) Anemia (11) HTN (hypertension) (12) DMII (diabetes mellitus, type 2) Theodore Alves Nov 18, 2020 11:48
[2020-11-18 12:00] VITALS: BP 110/71
[2020-11-18] MEDS: HYDROcodone/Acetamin 5/325 tab ORAL PRN ×2 (13:30→20:19)
--- NOTE | 2020-11-18 14:35 | Nephrology Progress Note ---
Assessment/Plan Problem List: (1) Renal failure (ARF), acute on chronic (2) Electrolyte imbalance (3) Hypokalemia (4) Cirrhosis (5) DMII (diabetes mellitus, type 2) (6) Anemia (7) HTN (hypertension) Assessment Renal failure most likely acute on chronic Electrolyte imbalances, hypokalemia Sepsis Hepatic encephalopathy, ascites, fatty liver Anemia History of EtOH abuse, history of tobacco abuse, history of drug abuse Diabetes mellitus type 2 Hypertension Lymphopenia, leukocytosis, hypoxia Plan November 18: Labs reviewed. Abnormal electrolytes addressed. Continue per consultants November 17: Labs reviewed. Renal parameters stable. Medication list reviewed. On Lasix and Aldactone. We will continue to monitor blood chemistries and electrolytes. November 16: Labs reviewed. Electrolytes within normal limit now. Continue her current management. November 15: Labs reviewed. Low magnesium addressed. Continue per current management. November 14: Labs reviewed. Renal parameters are stable continue per current management. Vitamin D supplement given. November 13: Labs reviewed. Normal renal parameters. Abnormal electrolytes noted and addressed. Vitamin D level results still pending November 12: Labs reviewed. Serum creatinine now within normal limits. Much improved from renal standpoint of view. November 11: Labs reviewed. Serum creatinine 1.6. Stable from renal standpoint reviewed. November 10: Labs reviewed. Serum creatinine lowered to 1.9. Continue to monitor renal parameters. Magnesium supplement ordered. November 09: No CHEM panel drawn today. Will DC Hernandez due to pain in the urethra. We will continue to monitor renal parameters. Continue per consultants. November 08: Labs reviewed. Serum creatinine 2.3 unchanged. Electrolytes within normal limit. Continue per consultants. November 07: Labs reviewed. Serum creatinine down to 2.3. Continue to monitor electrolytes. Low magnesium addressed. November 06: Labs reviewed. Serum creatinine 2.5 unchanged. Continue per consultants. November 05: Labs reviewed. Serum creatinine plateauing. Status quo. Kaila ctrolyte acceptable. Now on oxygen by cannula. Continue per consultants. November 04 labs reviewed. Patient full code. On Venturi mask. Low potassium addressed. Serum creatinine rising. Continue to monitor renal parameters. Allopurinol initiated November 03: Labs reviewed. Medication list reviewed. Abnormal electrolyte addressed. Continue monitor renal parameters. Continue per consultants. Previously: Trial of 3% saline and albumin bolus Potassium supplement Monitor renal parameters, ammonia, electrolytes ordered Subjective ROS Limited/Unobtainable: No Constitutional: Reports: malaise Objective Objective Last 24 Hour Vital Signs Date Time Temp Pulse Resp B/P (MAP) Pulse Ox O2 Delivery O2 Flow Rate FiO2 11/18/20 14:00 98.2 11/18/20 12:00 99.4 91 20 110/71 (84) 99 11/18/20 09:00 Nasal Cannula 3.0 11/18/20 08:00 98.2 96 22 102/61 (75) 92 11/18/20 07:00 92 Nasal Cannula 3.0 32 11/18/20 03:58 97.5 84 18 129/70 (89) 97 11/17/20 23:39 98.1 86 18 126/73 (90) 97 11/17/20 22:00 98 Nasal Cannula 3.0 32 11/17/20 21:00 Nasal Cannula 3.0 11/17/20 20:00 97.2 101 20 91/63 (72) 98 11/17/20 16:00 98.0 102 20 103/64 (77) 98 Intake and Output 11/17/20 11/18/20 19:00 07:00 Intake Total 840 ml 360 ml Output Total 1200 ml 600 ml Balance -360 ml -240 ml Intake Oral 840 ml 360 ml Output Urine Total 1200 ml 600 ml # Voids 1 # Bowel Movements 1 1 Current Medications Medications (Trade) Dose Ordered Sig/Kylah Route PRN Reason Start Time Stop Time Status Last Admin Dose Admin Acetaminophen (Tylenol) 500 mg Q6H PRN ORAL Mild Pain 11/02/20 08:30 12/02/20 08:29 11/13/20 08:33 Acetaminophen (Tylenol) 500 mg Q6H PRN ORAL fever > 100.2 11/02/20 08:45 12/02/20 08:44 Acetaminophen/ Hydrocodone Bitart ([place] 5/325) 1 tab Q6H PRN ORAL Severe Pain (Pain Scale 7-10) 11/18/20 13:00 11/25/20 12:59 11/18/20 13:30 Allopurinol (Zyloprim) 200 mg DAILY ORAL 11/04/20 15:00 12/04/20 14:59 11/18/20 08:36 Dextrose (Dextrose 50%) 25 ml Q30M PRN IV Hypoglycemia 11/01/20 18:30 01/30/21 18:29 Dextrose (Dextrose 50%) 50 ml Q30M PRN IV Hypoglycemia 11/01/20 18:30 01/30/21 18:29 Folic Acid (Folate) 3 mg DAILY ORAL 11/03/20 13:15 12/03/20 13:14 11/18/20 08:36 Furosemide (Lasix) 20 mg DAILY IV 11/13/20 10:00 12/13/20 09:59 11/18/20 08:37 Heparin Sodium (Porcine) (Heparin 5000 units/ml) 5,000 units EVERY 12 HOURS SUBQ 11/01/20 21:00 12/16/20 20:59 11/18/20 08:39 Insulin Aspart (NovoLOG) BEFORE MEALS AND HS SUBQ 11/01/20 21:00 01/30/21 20:59 11/18/20 11:43 Magnesium Oxide (Mag-Ox 400mg) 400 mg THREE TIMES A DAY ORAL 11/13/20 13:00 12/13/20 12:59 11/18/20 11:44 Magnesium Sulfate 100 ml @ 100 mls/hr Q1H IVPB 11/18/20 14:00 11/18/20 15:59 11/18/20 13:30 Midodrine (Pro-Amatine) 10 mg Q8HR ORAL 11/02/20 14:00 01/31/21 13:59 11/17/20 21:28 Pantoprazole (Protonix) 40 mg DAILY ORAL 11/14/20 09:00 12/14/20 08:59 11/18/20 08:36 Phosphorus (Phospha 250 Neutral) 250 mg THREE TIMES A DAY ORAL 11/13/20 13:00 12/13/20 12:59 11/18/20 11:44 Spironolactone (Aldactone) 100 mg DAILY ORAL 11/16/20 09:00 12/16/20 08:59 11/18/20 08:35 Vitamin D (Vitamin D) 5,000 unit DAILY ORAL 11/16/20 09:00 12/16/20 08:59 11/18/20 08:34 Laboratory Tests 11/18/20 05:00: White Blood Count 12.2H, Red Blood Count 2.74L, Hemoglobin 9.5L, Hematocrit 29.2L, Mean Corpuscular Volume 107H, Mean Corpuscular Hemoglobin 34.7H, Mean Corpuscular Hemoglobin Concent 32.5, Red Cell Distribution Width 19.9H, Platelet Count 284, Mean Platelet Volume 5.0L, Neutrophils (%) (Auto) 79.2H, Lymphocytes (%) (Auto) 8.9L, Monocytes (%) (Auto) 9.6, Eosinophils (%) (Auto) 1.2, Basophils (%) (Auto) 1.1, Sodium Level 135L, Potassium Level 4.4, Chloride Level 99, Carbon Dioxide Level 32, Anion Gap 4L, Blood Urea Nitrogen 21H, Creatinine 1.0, Estimat Glomerular Filtration Rate > 60, Glucose Level 94, Uric Acid 4.3, Calcium Level 8.1L, Phosphorus Level 4.0, Magnesium Level 1.7L, Total Bilirubin 0.9, Aspartate Amino Transf (AST/SGOT) 42H, Alanine Aminotransferase (ALT/SGPT) 14, Alkaline Phosphatase 128H, Ammonia 46H, Total Protein 6.4, Albumin 1.5L, Globulin 4.9, Albumin/Globulin Ratio 0.3L Height (Feet): 6 Height (Inches): 1.00 Weight (Pounds): 200 General Appearance: no apparent distress Cardiovascular: tachycardia Respiratory/Chest: decreased breath sounds Abdomen: distended Kalin Pozo MD Nov 18, 2020 14:35
--- NOTE | 2020-11-18 15:46 | Internal Med Progress Note ---
Subjective Date of Service: Nov 18, 2020 Physician Name Jered Case Attending Physician Ramon Coombs MD Current Medications Medications (Trade) Dose Ordered Sig/Kylah Route PRN Reason Start Time Stop Time Status Last Admin Dose Admin Acetaminophen (Tylenol) 500 mg Q6H PRN ORAL Mild Pain 11/02/20 08:30 12/02/20 08:29 11/13/20 08:33 Acetaminophen (Tylenol) 500 mg Q6H PRN ORAL fever > 100.2 11/02/20 08:45 12/02/20 08:44 Acetaminophen/ Hydrocodone Bitart ([place] 5/325) 1 tab Q6H PRN ORAL Severe Pain (Pain Scale 7-10) 11/18/20 13:00 11/25/20 12:59 11/18/20 13:30 Allopurinol (Zyloprim) 200 mg DAILY ORAL 11/04/20 15:00 12/04/20 14:59 11/18/20 08:36 Dextrose (Dextrose 50%) 25 ml Q30M PRN IV Hypoglycemia 11/01/20 18:30 01/30/21 18:29 Dextrose (Dextrose 50%) 50 ml Q30M PRN IV Hypoglycemia 11/01/20 18:30 01/30/21 18:29 Folic Acid (Folate) 3 mg DAILY ORAL 11/03/20 13:15 12/03/20 13:14 11/18/20 08:36 Furosemide (Lasix) 20 mg DAILY IV 11/13/20 10:00 12/13/20 09:59 11/18/20 08:37 Heparin Sodium (Porcine) (Heparin 5000 units/ml) 5,000 units EVERY 12 HOURS SUBQ 11/01/20 21:00 12/16/20 20:59 11/18/20 08:39 Insulin Aspart (NovoLOG) BEFORE MEALS AND HS SUBQ 11/01/20 21:00 01/30/21 20:59 11/18/20 11:43 Magnesium Oxide (Mag-Ox 400mg) 400 mg THREE TIMES A DAY ORAL 11/13/20 13:00 12/13/20 12:59 11/18/20 11:44 Magnesium Sulfate 100 ml @ 100 mls/hr Q1H IVPB 11/18/20 14:00 11/18/20 15:59 11/18/20 14:54 Midodrine (Pro-Amatine) 10 mg Q8HR ORAL 11/02/20 14:00 01/31/21 13:59 11/17/20 21:28 Pantoprazole (Protonix) 40 mg DAILY ORAL 11/14/20 09:00 12/14/20 08:59 11/18/20 08:36 Phosphorus (Phospha 250 Neutral) 250 mg THREE TIMES A DAY ORAL 11/13/20 13:00 12/13/20 12:59 11/18/20 11:44 Spironolactone (Aldactone) 100 mg DAILY ORAL 11/16/20 09:00 12/16/20 08:59 11/18/20 08:35 Vitamin D (Vitamin D) 5,000 unit DAILY ORAL 11/16/20 09:00 12/16/20 08:59 11/18/20 08:34 Allergies: Coded Allergies: No Known Allergies (Unverified , 10/02/16) ROS Limited/Unobtainable: No Constitutional: Reports: no symptoms HEENT: Reports: no symptoms Cardiovascular: Reports: no symptoms Respiratory: Reports: no symptoms Gastrointestinal/Abdominal: Reports: no symptoms Genitourinary: Reports: no symptoms Neurologic/Psychiatric: Reports: no symptoms Subjective 60 YO M with history of alcohol dependence admitted with shortness of breath. Now respiratroy failure. Cover for Int Med-DR Coombs. S/P paracentesis 11/02/20 Objective Last Vital Signs Date Time Temp Pulse Resp B/P (MAP) Pulse Ox O2 Delivery O2 Flow Rate FiO2 11/18/20 14:00 98.2 11/18/20 12:00 91 20 110/71 (84) 99 11/18/20 09:00 Nasal Cannula 3.0 11/18/20 07:00 32 Laboratory Tests Test 11/18/20 05:00 White Blood Count 12.2 K/UL (4.8-10.8) H Red Blood Count 2.74 M/UL (4.70-6.10) L Hemoglobin 9.5 G/DL (14.2-18.0) L Hematocrit 29.2 % (42.0-52.0) L Mean Corpuscular Volume 107 FL (80-99) H Mean Corpuscular Hemoglobin 34.7 PG (27.0-31.0) H Mean Corpuscular Hemoglobin Concent 32.5 G/DL (32.0-36.0) Red Cell Distribution Width 19.9 % (11.6-14.8) H Platelet Count 284 K/UL (150-450) Mean Platelet Volume 5.0 FL (6.5-10.1) L Neutrophils (%) (Auto) 79.2 % (45.0-75.0) H Lymphocytes (%) (Auto) 8.9 % (20.0-45.0) L Monocytes (%) (Auto) 9.6 % (1.0-10.0) Eosinophils (%) (Auto) 1.2 % (0.0-3.0) Basophils (%) (Auto) 1.1 % (0.0-2.0) Sodium Level 135 MMOL/L (136-145) L Potassium Level 4.4 MMOL/L (3.5-5.1) Chloride Level 99 MMOL/L (98-107) Carbon Dioxide Level 32 MMOL/L (21-32) Anion Gap 4 mmol/L (5-15) L Blood Urea Nitrogen 21 mg/dL (7-18) H Creatinine 1.0 MG/DL (0.55-1.30) Estimat Glomerular Filtration Rate > 60 mL/min (>60) Glucose Level 94 MG/DL (74-106) Uric Acid 4.3 MG/DL (2.6-7.2) Calcium Level 8.1 MG/DL (8.5-10.1) L Phosphorus Level 4.0 MG/DL (2.5-4.9) Magnesium Level 1.7 MG/DL (1.8-2.4) L Total Bilirubin 0.9 MG/DL (0.2-1.0) Aspartate Amino Transf (AST/SGOT) 42 U/L (15-37) H Alanine Aminotransferase (ALT/SGPT) 14 U/L (12-78) Alkaline Phosphatase 128 U/L (46-116) H Ammonia 46 umol/L (11-32) H Total Protein 6.4 G/DL (6.4-8.2) Albumin 1.5 G/DL (3.4-5.0) L Globulin 4.9 g/dL Albumin/Globulin Ratio 0.3 (1.0-2.7) L Intake and Output 11/17/20 11/18/20 19:00 07:00 Intake Total 840 ml 360 ml Output Total 1200 ml 600 ml Balance -360 ml -240 ml Intake Oral 840 ml 360 ml Output Urine Total 1200 ml 600 ml # Voids 1 # Bowel Movements 1 1 Objective Objective General: No acute distress, awake and alert HEENT: NCAT, sclera anicteric, PERRL, EOMI. Neck: Supple, no significant jugular venous distention, Lungs: Nasal canula; Fair inspiratory effort, , no Wheeze or Rales. Heart: Regular rate and rhythm, normal S1/S2, no murmurs Abdomen: soft, nontender, +distended. positive fluid shift, bowel sound present. / Rectal: Refused and deferred. Extremities: No Cyanosis , clubbing or edema. Neuro: A&O x 3, Able to move all extremities Skin: warm, no rash Assessment/Plan Assessment/Plan Assessment/Plan Assessment/Plan Sepsis Acute Hypoxia on BiPAP >> NRB mask >> venturi mask>>nasal canula alcohol abuse Liver Cirrhosis, Fatty liver Massive ascites renal failure DM2 HTN Plan: ABX=S/P vanco and Zosyn High volume paracentesis, COVID PCR=Neg F/u BCx GI=Dr Encarnacion Nephrol=Dr Pozo S/P paracentesis 11/02/20 Jered Case MD Nov 18, 2020 15:46
[2020-11-18 16:00] VITALS: BP 112/76
--- NOTE | 2020-11-18 18:32 | NUR ---
NURSE HAND-OFF: Important Events on Shift:[none] Patient Status: [stable] Diet: ccho med Pending Orders: Pending Results/Labs: Pending MD notification: Latest Vital Signs: Temperature 97.3 , Pulse 91 , B/P 112 /76 , Respiratory Rate 18 , O2 SAT 97 , Bi-pap, O2 Flow Rate 3.0 . Vital Sign Comment: stable Latest Childs Fall Score: 70 Fall Risk: High Risk Safety Measures: Call light Within Reach, Bed Alarm Zone 2, Side Rails Side Rails x3, Bed position Low and Locked. Fall Precautions: Yellow Socks Door Sign Patient Fall Education Report given to Chely DIANE.
--- NOTE | 2020-11-18 19:35 | General Progress Note ---
Subjective Allergies: Coded Allergies: No Known Allergies (Unverified , 10/02/16) Subjective above noted eating well Objective Last 24 Hour Vital Signs Date Time Temp Pulse Resp B/P (MAP) Pulse Ox O2 Delivery O2 Flow Rate FiO2 11/18/20 16:00 97.3 91 18 112/76 (88) 97 11/18/20 14:00 98.2 11/18/20 12:00 99.4 91 20 110/71 (84) 99 11/18/20 09:00 Nasal Cannula 3.0 11/18/20 08:00 98.2 96 22 102/61 (75) 92 11/18/20 07:00 92 Nasal Cannula 3.0 32 11/18/20 03:58 97.5 84 18 129/70 (89) 97 11/17/20 23:39 98.1 86 18 126/73 (90) 97 11/17/20 22:00 98 Nasal Cannula 3.0 32 11/17/20 21:00 Nasal Cannula 3.0 11/17/20 20:00 97.2 101 20 91/63 (72) 98 Intake and Output 11/17/20 11/18/20 19:00 07:00 Intake Total 840 ml 360 ml Output Total 1200 ml 600 ml Balance -360 ml -240 ml Intake Oral 840 ml 360 ml Output Urine Total 1200 ml 600 ml # Voids 1 # Bowel Movements 1 1 Laboratory Tests 11/18/20 05:00: White Blood Count 12.2H, Red Blood Count 2.74L, Hemoglobin 9.5L, Hematocrit 29.2L, Mean Corpuscular Volume 107H, Mean Corpuscular Hemoglobin 34.7H, Mean Corpuscular Hemoglobin Concent 32.5, Red Cell Distribution Width 19.9H, Platelet Count 284, Mean Platelet Volume 5.0L, Neutrophils (%) (Auto) 79.2H, Lymphocytes (%) (Auto) 8.9L, Monocytes (%) (Auto) 9.6, Eosinophils (%) (Auto) 1.2, Basophils (%) (Auto) 1.1, Sodium Level 135L, Potassium Level 4.4, Chloride Level 99, Carbon Dioxide Level 32, Anion Gap 4L, Blood Urea Nitrogen 21H, Creatinine 1.0, Estimat Glomerular Filtration Rate > 60, Glucose Level 94, Uric Acid 4.3, Calcium Level 8.1L, Phosphorus Level 4.0, Magnesium Level 1.7L, Total Bilirubin 0.9, Aspartate Amino Transf (AST/SGOT) 42H, Alanine Aminotransferase (ALT/SGPT) 14, Alkaline Phosphatase 128H, Ammonia 46H, Total Protein 6.4, Albumin 1.5L, Globulin 4.9, Albumin/Globulin Ratio 0.3L Height (Feet): 6 Height (Inches): 1.00 Weight (Pounds): 200 Objective WDWN WM NCAT supple CTA RR abd soft,mildly distended no edema non focal Assessment/Plan Assessment/Plan: Assessment/Plan Problem List: (1) Cirrhosis ICD Codes: K74.60 - Unspecified cirrhosis of liver SNOMED: 29975815 (2) Hepatic encephalopathy ICD Codes: K72.90 - Hepatic failure, unspecified without coma; R65.20 - Severe sepsis without septic shock SNOMED: 08596523 (3) Hypokalemia ICD Codes: E87.6 - Hypokalemia; R65.20 - Severe sepsis without septic shock SNOMED: 33076601 (4) Ascites ICD Codes: R18.8 - Other ascites SNOMED: 280729932 (5) Severe sepsis ICD Codes: A41.9 - Sepsis, unspecified organism; R65.20 - Severe sepsis without septic shock SNOMED: 61676479 (6) AMS (altered mental status) ICD Codes: R41.82 - Altered mental status, unspecified SNOMED: 123237301 Assessment/Plan: po as tolerated Elevate HOB lactulose PPI f/u ammonia level fu hepatitis panel Igor Askew MD Nov 18, 2020 19:35
[2020-11-18 20:00] VITALS: BP 114/73
[2020-11-19] VITALS: BP 101/67
[2020-11-19 04:00] VITALS: BP 112/75
[2020-11-19] MEDS: HYDROcodone/Acetamin 5/325 tab ORAL PRN ×3 (05:43→18:03)
[2020-11-19] MEDS: Midodrine 10mg tab ORAL SCH ×3 (05:48→22:00)
[2020-11-19] MEDS: NovoLOG Insulin Flexpen SUBQ SCH ×4 (05:54→20:33)
--- NOTE | 2020-11-19 07:51 | NUR ---
NURSE HAND-OFF REPORT: Important Events on Shift: No acute events Patient Status: Stable Diet: CCHO med Pending Orders: N/A Pending Results/Labs:AM labs Pending MD notification:[] Latest Vital Signs: Temperature 97.9 , Pulse 92 , B/P 112 /75 , Respiratory Rate 19 , O2 SAT 94 , Bi-pap, O2 Flow Rate 3.0 . Vital Sign Comment: [] EKG Rhythm: Sinus Rhythm Rhythm change?: N MD Notified?: - MD Response: Latest Childs Fall Score: 70 Fall Risk: High Risk Safety Measures: Call light Within Reach, Bed Alarm Zone 2, Side Rails Side Rails x3, Bed position Low and Locked. Fall Precautions: Yellow Socks Door Sign Patient Fall Education Report given to ROXI Fuchs
--- NOTE | 2020-11-19 07:55 | NUR ---
NURSE NOTES: Received hand-off from Chely Stark RN. Patient in stable condition, breathing even and unlabored on nasal cannula 3L, alert and oriented x3. Bed alarm on, bed in lowest and locked position, call light within reach, side rails upx2. Patient tolerated breakfast well, no s/s of aspiration noted.
[2020-11-19 08:00] VITALS: BP 112/71
[2020-11-19] MEDS: Vitamin D 1000 units Tab ORAL SCH (08:34)
[2020-11-19] MEDS: Magnesium Oxide 400mg tab ORAL SCH ×3 (08:34→17:18)
[2020-11-19] MEDS: Phospha 250 Neutral tab ORAL SCH ×3 (08:34→17:18)
[2020-11-19] MEDS: Allopurinol 100mg Tab ORAL SCH (08:35)
[2020-11-19] MEDS: Heparin 5000 units/ml inj SUBQ SCH ×2 (08:41→20:41)
[2020-11-19 09:08] LABS: EOSINOPHILS % (AUTO) 1.3 % (0.0-3.0); HEMATOCRIT 30.9 % (42.0-52.0); HEMOGLOBIN 9.7 G/DL (14.2-18.0); MEAN CORPUSCULAR VOLUME 108 FL (80-99); MONOCYTES % (AUTO) 6.8 % (1.0-10.0); NEUTROPHILS % (AUTO) 83.9 % (45.0-75.0); PLATELET COUNT 294 K/UL (150-450); RED BLOOD COUNT 2.86 M/UL (4.70-6.10); RED CELL DISTRIBUTION WIDTH 19.4 % (11.6-14.8); WHITE BLOOD COUNT 11.3 K/UL (4.8-10.8)
[2020-11-19 09:29] LABS: ANION GAP 5 mmol/L (5-15); BLOOD UREA NITROGEN 22 mg/dL (7-18); CALCIUM 8.6 MG/DL (8.5-10.1); CARBON DIOXIDE 32 MMOL/L (21-32); CHLORIDE 96 MMOL/L (98-107); CREATININE 0.9 MG/DL (0.55-1.30); POTASSIUM 4.1 MMOL/L (3.5-5.1); SODIUM 133 MMOL/L (136-145)
--- NOTE | 2020-11-19 10:07 | NUR ---
NURSE NOTES: Called Dr. Coombs and left voicemail with Judith regarding low sodium and requested sodium replacement.
[2020-11-19] MEDS: Spironolactone 50mg tab ORAL SCH (10:47)
--- NOTE | 2020-11-19 11:30 | NUR ---
NURSE NOTES: Dr. Gutierrez saw the patient and ordered an MRI with and without contrast to assess why patient is so fatigued.
--- NOTE | 2020-11-19 11:40 | NUR ---
NURSE NOTES: BGL is 85.
[2020-11-19 12:00] VITALS: BP 104/70
--- NOTE | 2020-11-19 12:07 | NUR ---
CASE MANAGEMENT:REVIEW 11/19/20 SI: SEPSIS. HYPOXIA. ETOH ABUSE. ASCITES S/P PARACENTESIS~ 10.2 L REMOVED 97.5 94 18 112/71 97% ON 3L/NC WBC+11.3 H/H-9.7/30.9 BUN+22 IS: PROTONIX PO QD PHOSPHA PO TID MAG OXIDE PO TID ALDACTONE PO QD IV LASIX QD ALLOPURINOL PO QD FOLATE PO QD MIDODRINE PO Q8HRS HEPARIN SQ Q12 : MED/SURG STATUS DCP: FROM HOME.....[facility]? PLAN: NEED TO WEAN TO ROOM AIR...WILL NOT BE ABLE TO OBTAIN OXYGEN FOR HOME USE
--- NOTE | 2020-11-19 12:17 | Nephrology Progress Note ---
Assessment/Plan Problem List: (1) Renal failure (ARF), acute on chronic (2) Electrolyte imbalance (3) Hypokalemia (4) Cirrhosis (5) DMII (diabetes mellitus, type 2) (6) Anemia (7) HTN (hypertension) Assessment Renal failure most likely acute on chronic Electrolyte imbalances, hypokalemia Sepsis Hepatic encephalopathy, ascites, fatty liver Anemia History of EtOH abuse, history of tobacco abuse, history of drug abuse Diabetes mellitus type 2 Hypertension Lymphopenia, leukocytosis, hypoxia Plan November 19: Labs reviewed. Serum sodium 133. Normal saline 500 cc bolus given. Continue per consultants. November 18: Labs reviewed. Abnormal electrolytes addressed. Continue per consultants November 17: Labs reviewed. Renal parameters stable. Medication list reviewed. On Lasix and Aldactone. We will continue to monitor blood chemistries and electrolytes. November 16: Labs reviewed. Electrolytes within normal limit now. Continue her current management. November 15: Labs reviewed. Low magnesium addressed. Continue per current management. November 14: Labs reviewed. Renal parameters are stable continue per current management. Vitamin D supplement given. November 13: Labs reviewed. Normal renal parameters. Abnormal electrolytes noted and addressed. Vitamin D level results still pending November 12: Labs reviewed. Serum creatinine now within normal limits. Much improved from renal standpoint of view. November 11: Labs reviewed. Serum creatinine 1.6. Stable from renal standpoint reviewed. November 10: Labs reviewed. Serum creatinine lowered to 1.9. Continue to monitor renal parameters. Magnesium supplement ordered. November 09: No CHEM panel drawn today. Will DC Hernandez due to pain in the urethra. We will continue to monitor renal parameters. Continue per consultants. November 08: Labs reviewed. Serum creatinine 2.3 unchanged. Electrolytes within normal limit. Continue per consultants. November 07: Labs reviewed. Serum creatinine down to 2.3. Continue to monitor electrolytes. Low magnesium addressed. November 06: Labs reviewed. Serum creatinine 2.5 unchanged. Continue per consultants. November 05: Labs reviewed. Serum creatinine plateauing. Status quo. Electrolyte acceptable. Now on oxygen by cannula. Continue per consultants. November 04 labs reviewed. Patient full code. On Venturi mask. Low potassium addressed. Serum creatinine rising. Continue to monitor renal parameters. Allopurinol initiated November 03: Labs reviewed. Medication list reviewed. Abnormal electrolyte addressed. Continue monitor renal parameters. Continue per consultants. Previously: Trial of 3% saline and albumin bolus Potassium supplement Monitor renal parameters, ammonia, electrolytes ordered Subjective ROS Limited/Unobtainable: No Constitutional: Reports: malaise Objective Objective Last 24 Hour Vital Signs Date Time Temp Pulse Resp B/P (MAP) Pulse Ox O2 Delivery O2 Flow Rate FiO2 11/19/20 08:00 97.5 94 18 112/71 (85) 97 11/19/20 07:00 95 Nasal Cannula 3.0 32 11/19/20 04:00 97.9 92 19 112/75 (87) 94 11/19/20 00:00 97.2 90 19 101/67 (78) 95 11/18/20 20:57 Nasal Cannula 3.0 11/18/20 20:00 97.0 98 18 114/73 (87) 92 11/18/20 16:00 97.3 91 18 112/76 (88) 97 11/18/20 14:00 98.2 Intake and Output 11/18/20 11/19/20 19:00 07:00 Intake Total 480 ml 800 ml Output Total 1000 ml Balance 480 ml -200 ml Intake Oral 480 ml 800 ml Output Urine Total 1000 ml # Bowel Movements 2 Current Medications Medications (Trade) Dose Ordered Sig/Kylah Route PRN Reason Start Time Stop Time Status Last Admin Dose Admin Acetaminophen (Tylenol) 500 mg Q6H PRN ORAL Mild Pain 11/02/20 08:30 12/02/20 08:29 11/13/20 08:33 Acetaminophen (Tylenol) 500 mg Q6H PRN ORAL fever > 100.2 11/02/20 08:45 12/02/20 08:44 Acetaminophen/ Hydrocodone Bitart ([place] 5/325) 1 tab Q6H PRN ORAL Severe Pain (Pain Scale 7-10) 11/18/20 13:00 11/25/20 12:59 11/19/20 12:01 Allopurinol (Zyloprim) 200 mg DAILY ORAL 11/04/20 15:00 12/04/20 14:59 11/19/20 08:35 Dextrose (Dextrose 50%) 25 ml Q30M PRN IV Hypoglycemia 11/01/20 18:30 01/30/21 18:29 Dextrose (Dextrose 50%) 50 ml Q30M PRN IV Hypoglycemia 11/01/20 18:30 01/30/21 18:29 Folic Acid (Folate) 3 mg DAILY ORAL 11/03/20 13:15 12/03/20 13:14 11/19/20 08:34 Furosemide (Lasix) 20 mg DAILY IV 11/13/20 10:00 12/13/20 09:59 11/19/20 08:41 Heparin Sodium (Porcine) (Heparin 5000 units/ml) 5,000 units EVERY 12 HOURS SUBQ 11/01/20 21:00 12/16/20 20:59 11/19/20 08:41 Insulin Aspart (NovoLOG) BEFORE MEALS AND HS SUBQ 11/01/20 21:00 01/30/21 20:59 11/18/20 11:43 Magnesium Oxide (Mag-Ox 400mg) 400 mg THREE TIMES A DAY ORAL 11/13/20 13:00 12/13/20 12:59 11/19/20 12:01 Midodrine (Pro-Amatine) 10 mg Q8HR ORAL 11/02/20 14:00 01/31/21 13:59 11/17/20 21:28 Pantoprazole (Protonix) 40 mg DAILY ORAL 11/14/20 09:00 12/14/20 08:59 11/19/20 08:34 Phosphorus (Phospha 250 Neutral) 250 mg THREE TIMES A DAY ORAL 11/13/20 13:00 12/13/20 12:59 11/19/20 12:01 Spironolactone (Aldactone) 100 mg DAILY ORAL 11/16/20 09:00 12/16/20 08:59 11/19/20 10:47 Vitamin D (Vitamin D) 5,000 unit DAILY ORAL 11/16/20 09:00 12/16/20 08:59 11/19/20 08:34 Laboratory Tests 11/19/20 08:07: White Blood Count 11.3H, Red Blood Count 2.86L, Hemoglobin 9.7L, Hematocrit 30.9L, Mean Corpuscular Volume 108H, Mean Corpuscular Hemoglobin 34.0H, Mean Corpuscular Hemoglobin Concent 31.5L, Red Cell Distribution Width 19.4H, Platelet Count 294, Mean Platelet Volume 5.2L, Neutrophils (%) (Auto) 83.9H, Lymphocytes (%) (Auto) 7.0L, Monocytes (%) (Auto) 6.8, Eosinophils (%) (Auto) 1.3, Basophils (%) (Auto) 1.0, Sodium Level 133L, Potassium Level 4.1, Chloride Level 96L, Carbon Dioxide Level 32, Anion Gap 5, Blood Urea Nitrogen 22H, Creatinine 0.9, Estimat Glomerular Filtration Rate > 60, Glucose Level 137H, Calcium Level 8.6 Height (Feet): 6 Height (Inches): 1.00 Weight (Pounds): 200 General Appearance: no apparent distress - No change in physical exam Cardiovascular: tachycardia Respiratory/Chest: decreased breath sounds Abdomen: distended Kalin Pozo MD Nov 19, 2020 12:17
--- NOTE | 2020-11-19 13:04 | Surgery Progress Note ---
Surgery Progress Note Subjective Symptoms: improved, tolerating diet, voiding well, passing flatus, BM, pain decreased Objective Last 24 Hour Vital Signs Date Time Temp Pulse Resp B/P (MAP) Pulse Ox O2 Delivery O2 Flow Rate FiO2 11/19/20 12:31 97.5 11/19/20 08:00 97.5 94 18 112/71 (85) 97 11/19/20 07:00 95 Nasal Cannula 3.0 32 11/19/20 04:00 97.9 92 19 112/75 (87) 94 11/19/20 00:00 97.2 90 19 101/67 (78) 95 11/18/20 20:57 Nasal Cannula 3.0 11/18/20 20:00 97.0 98 18 114/73 (87) 92 11/18/20 16:00 97.3 91 18 112/76 (88) 97 11/18/20 14:00 98.2 I&O Intake and Output 11/18/20 11/19/20 19:00 07:00 Intake Total 480 ml 800 ml Output Total 1000 ml Balance 480 ml -200 ml Intake Oral 480 ml 800 ml Output Urine Total 1000 ml # Bowel Movements 2 Dressing: dry Wound: clean Cardiovascular: RSR Respiratory: clear Abdomen: soft, non-tender, present bowel sounds, non-distended Extremities: no edema, no tenderness, no cyanosis Laboratory Tests Test 11/19/20 08:07 White Blood Count 11.3 K/UL (4.8-10.8) H Red Blood Count 2.86 M/UL (4.70-6.10) L Hemoglobin 9.7 G/DL (14.2-18.0) L Hematocrit 30.9 % (42.0-52.0) L Mean Corpuscular Volume 108 FL (80-99) H Mean Corpuscular Hemoglobin 34.0 PG (27.0-31.0) H Mean Corpuscular Hemoglobin Concent 31.5 G/DL (32.0-36.0) L Red Cell Distribution Width 19.4 % (11.6-14.8) H Platelet Count 294 K/UL (150-450) Mean Platelet Volume 5.2 FL (6.5-10.1) L Neutrophils (%) (Auto) 83.9 % (45.0-75.0) H Lymphocytes (%) (Auto) 7.0 % (20.0-45.0) L Monocytes (%) (Auto) 6.8 % (1.0-10.0) Eosinophils (%) (Auto) 1.3 % (0.0-3.0) Basophils (%) (Auto) 1.0 % (0.0-2.0) Sodium Level 133 MMOL/L (136-145) L Potassium Level 4.1 MMOL/L (3.5-5.1) Chloride Level 96 MMOL/L (98-107) L Carbon Dioxide Level 32 MMOL/L (21-32) Anion Gap 5 mmol/L (5-15) Blood Urea Nitrogen 22 mg/dL (7-18) H Creatinine 0.9 MG/DL (0.55-1.30) Estimat Glomerular Filtration Rate > 60 mL/min (>60) Glucose Level 137 MG/DL (74-106) H Calcium Level 8.6 MG/DL (8.5-10.1) Plan Problems: (1) Deep tissue injury Assessment & Plan: Pt presented on admission with DTPI Thoracic Spine(L)1.8cm x (W)1cm. Base of Pressure Injury is purpuric with surrounding non-blanchable erythema. Pt complained of tenderness at site. Non-Blanchable erythema without induration noted to Sacrum,R and L Gluteal cheeks including Bilat Ischial tuberosities. Rocker bottom foot noted to Both R and L feet. Both heels are callused,dry and easily blanchable. Tx.Plan: Apply Cavilon Skin Barrier To Thoracic DTPI. Cover with Optifoam drsg. Change every 3 days and prn. Apply Moisture Barrier Paste to Sacrum. Cover with Optifoam drsg. Change every 3 days and prn. Apply Cavilon Skin Barrier to R and L gluteal cheeks and Bilat Ischial tuberosities with each Incontinence care. Reposition at least every 2Hours or as tolerated. Off-load heels with pillow. (2) Hepatic encephalopathy (3) Hypokalemia (4) Ascites (5) Severe sepsis (6) Cirrhosis Assessment & Plan: There is compressive atelectasis right lower lobe. Small right effusion noted. Right hemidiaphragm is elevated. There is a large amount of ascites. Slight nodularity of the hepatic contour noted suggestive of underlying cirrhotic changes. Spleen contains some scattered granulomas. Gallbladder is isodense to liver likely containing tumefactive sludge. The pancreas is unremarkable. Adrenals are normal in morphology. The kidneys are normal in size, shape and axis. Small bowel loops are nondistended. The colon is also nondistended with average amount of stool. The appendix is not visualized. There is no free air. No pathologic adenopathy demonstrated. Urinary bladder appears unremarkable. Degenerative changes of the lumbar spine noted. IMPRESSION: CIRRHOSIS WITH LARGE AMOUNT OF ASCITES. SPLENIC GRANULOMAS. SLUDGE IN THE GALLBLADDER. SMALL RIGHT PLEURAL EFFUSION WITH COMPRESSIVE ATELECTASIS RIGHT LOWER LOBE. ELEVATED RIGHT HEMIDIAPHRAGM. (7) AMS (altered mental status) (8) Electrolyte imbalance (9) Renal failure (ARF), acute on chronic (10) Anemia (11) HTN (hypertension) (12) DMII (diabetes mellitus, type 2) Theodore Alves Nov 19, 2020 13:04
--- NOTE | 2020-11-19 13:35 | Internal Med Progress Note ---
Subjective Date of Service: Nov 19, 2020 Physician Name Jered Case Attending Physician Ramon Coombs MD Current Medications Medications (Trade) Dose Ordered Sig/Kylah Route PRN Reason Start Time Stop Time Status Last Admin Dose Admin Acetaminophen (Tylenol) 500 mg Q6H PRN ORAL Mild Pain 11/02/20 08:30 12/02/20 08:29 11/13/20 08:33 Acetaminophen (Tylenol) 500 mg Q6H PRN ORAL fever > 100.2 11/02/20 08:45 12/02/20 08:44 Acetaminophen/ Hydrocodone Bitart ([place] 5/325) 1 tab Q6H PRN ORAL Severe Pain (Pain Scale 7-10) 11/18/20 13:00 11/25/20 12:59 11/19/20 12:01 Allopurinol (Zyloprim) 200 mg DAILY ORAL 11/04/20 15:00 12/04/20 14:59 11/19/20 08:35 Dextrose (Dextrose 50%) 25 ml Q30M PRN IV Hypoglycemia 11/01/20 18:30 01/30/21 18:29 Dextrose (Dextrose 50%) 50 ml Q30M PRN IV Hypoglycemia 11/01/20 18:30 01/30/21 18:29 Folic Acid (Folate) 3 mg DAILY ORAL 11/03/20 13:15 12/03/20 13:14 11/19/20 08:34 Furosemide (Lasix) 20 mg DAILY IV 11/13/20 10:00 12/13/20 09:59 11/19/20 08:41 Heparin Sodium (Porcine) (Heparin 5000 units/ml) 5,000 units EVERY 12 HOURS SUBQ 11/01/20 21:00 12/16/20 20:59 11/19/20 08:41 Insulin Aspart (NovoLOG) BEFORE MEALS AND HS SUBQ 11/01/20 21:00 01/30/21 20:59 11/18/20 11:43 Magnesium Oxide (Mag-Ox 400mg) 400 mg THREE TIMES A DAY ORAL 11/13/20 13:00 12/13/20 12:59 11/19/20 12:01 Midodrine (Pro-Amatine) 10 mg Q8HR ORAL 11/02/20 14:00 01/31/21 13:59 11/19/20 12:49 Pantoprazole (Protonix) 40 mg DAILY ORAL 11/14/20 09:00 12/14/20 08:59 11/19/20 08:34 Phosphorus (Phospha 250 Neutral) 250 mg THREE TIMES A DAY ORAL 11/13/20 13:00 12/13/20 12:59 11/19/20 12:01 Spironolactone (Aldactone) 100 mg DAILY ORAL 11/16/20 09:00 12/16/20 08:59 11/19/20 10:47 Vitamin D (Vitamin D) 5,000 unit DAILY ORAL 11/16/20 09:00 12/16/20 08:59 11/19/20 08:34 Allergies: Coded Allergies: No Known Allergies (Unverified , 10/02/16) ROS Limited/Unobtainable: No Constitutional: Reports: no symptoms HEENT: Reports: no symptoms Cardiovascular: Reports: no symptoms Respiratory: Reports: no symptoms Gastrointestinal/Abdominal: Reports: no symptoms Genitourinary: Reports: no symptoms Neurologic/Psychiatric: Reports: no symptoms Subjective 60 YO M with history of alcohol dependence admitted with shortness of breath. Now respiratroy failure. Cover for Int Med-DR Coombs. S/P paracentesis 11/02/20 Objective Last Vital Signs Date Time Temp Pulse Resp B/P (MAP) Pulse Ox O2 Delivery O2 Flow Rate FiO2 11/19/20 12:31 97.5 11/19/20 08:00 94 18 112/71 (85) 97 11/19/20 07:00 Nasal Cannula 3.0 32 Laboratory Tests Test 11/19/20 08:07 White Blood Count 11.3 K/UL (4.8-10.8) H Red Blood Count 2.86 M/UL (4.70-6.10) L Hemoglobin 9.7 G/DL (14.2-18.0) L Hematocrit 30.9 % (42.0-52.0) L Mean Corpuscular Volume 108 FL (80-99) H Mean Corpuscular Hemoglobin 34.0 PG (27.0-31.0) H Mean Corpuscular Hemoglobin Concent 31.5 G/DL (32.0-36.0) L Red Cell Distribution Width 19.4 % (11.6-14.8) H Platelet Count 294 K/UL (150-450) Mean Platelet Volume 5.2 FL (6.5-10.1) L Neutrophils (%) (Auto) 83.9 % (45.0-75.0) H Lymphocytes (%) (Auto) 7.0 % (20.0-45.0) L Monocytes (%) (Auto) 6.8 % (1.0-10.0) Eosinophils (%) (Auto) 1.3 % (0.0-3.0) Basophils (%) (Auto) 1.0 % (0.0-2.0) Sodium Level 133 MMOL/L (136-145) L Potassium Level 4.1 MMOL/L (3.5-5.1) Chloride Level 96 MMOL/L (98-107) L Carbon Dioxide Level 32 MMOL/L (21-32) Anion Gap 5 mmol/L (5-15) Blood Urea Nitrogen 22 mg/dL (7-18) H Creatinine 0.9 MG/DL (0.55-1.30) Estimat Glomerular Filtration Rate > 60 mL/min (>60) Glucose Level 137 MG/DL (74-106) H Calcium Level 8.6 MG/DL (8.5-10.1) Intake and Output 11/18/20 11/19/20 19:00 07:00 Intake Total 480 ml 800 ml Output Total 1000 ml Balance 480 ml -200 ml Intake Oral 480 ml 800 ml Output Urine Total 1000 ml # Bowel Movements 2 Objective Objective General: No acute distress, awake and alert HEENT: NCAT, sclera anicteric, PERRL, EOMI. Neck: Supple, no significant jugular venous distention, Lungs: Nasal canula; Fair inspiratory effort, , no Wheeze or Rales. Heart: Regular rate and rhythm, normal S1/S2, no murmurs Abdomen: soft, nontender, +distended. positive fluid shift, bowel sound present. / Rectal: Refused and deferred. Extremities: No Cyanosis , clubbing or edema. Neuro: A&O x 3, Able to move all extremities Skin: warm, no rash Assessment/Plan Assessment/Plan Assessment/Plan Assessment/Plan Sepsis Acute Hypoxia on BiPAP >> NRB mask >> venturi mask>>nasal canula alcohol abuse Liver Cirrhosis, Fatty liver Massive ascites renal failure DM2 HTN Plan: ABX=S/P vanco and Zosyn High volume paracentesis, COVID PCR=Neg F/u BCx GI=Dr Encarnacion Nephrol=Dr Pozo S/P paracentesis 11/02/20 Discharge planning Jered Case MD Nov 19, 2020 13:35
--- NOTE | 2020-11-19 15:31 | General Progress Note ---
Subjective ROS Limited/Unobtainable: No Allergies: Coded Allergies: No Known Allergies (Unverified , 10/02/16) Objective Last 24 Hour Vital Signs Date Time Temp Pulse Resp B/P (MAP) Pulse Ox O2 Delivery O2 Flow Rate FiO2 11/19/20 12:31 97.5 11/19/20 12:00 97.9 97 18 104/70 (81) 98 11/19/20 09:00 Nasal Cannula 3.0 11/19/20 08:00 97.5 94 18 112/71 (85) 97 11/19/20 07:00 95 Nasal Cannula 3.0 32 11/19/20 04:00 97.9 92 19 112/75 (87) 94 11/19/20 00:00 97.2 90 19 101/67 (78) 95 11/18/20 20:57 Nasal Cannula 3.0 11/18/20 20:00 97.0 98 18 114/73 (87) 92 11/18/20 16:00 97.3 91 18 112/76 (88) 97 Intake and Output 11/18/20 11/19/20 19:00 07:00 Intake Total 480 ml 800 ml Output Total 1000 ml Balance 480 ml -200 ml Intake Oral 480 ml 800 ml Output Urine Total 1000 ml # Bowel Movements 2 Laboratory Tests 11/19/20 08:07: White Blood Count 11.3H, Red Blood Count 2.86L, Hemoglobin 9.7L, Hematocrit 30.9L, Mean Corpuscular Volume 108H, Mean Corpuscular Hemoglobin 34.0H, Mean Corpuscular Hemoglobin Concent 31.5L, Red Cell Distribution Width 19.4H, Platelet Count 294, Mean Platelet Volume 5.2L, Neutrophils (%) (Auto) 83.9H, Lymphocytes (%) (Auto) 7.0L, Monocytes (%) (Auto) 6.8, Eosinophils (%) (Auto) 1.3, Basophils (%) (Auto) 1.0, Sodium Level 133L, Potassium Level 4.1, Chloride Level 96L, Carbon Dioxide Level 32, Anion Gap 5, Blood Urea Nitrogen 22H, Creatinine 0.9, Estimat Glomerular Filtration Rate > 60, Glucose Level 137H, Calcium Level 8.6 Height (Feet): 6 Height (Inches): 1.00 Weight (Pounds): 200 General Appearance: no apparent distress EENT: normal ENT inspection Neck: supple Cardiovascular: normal rate Respiratory/Chest: decreased breath sounds Abdomen: normal bowel sounds, non tender, soft Extremities: non-tender Assessment/Plan Problem List: (1) Cirrhosis ICD Codes: K74.60 - Unspecified cirrhosis of liver SNOMED: 63489828 (2) Hepatic encephalopathy ICD Codes: K72.90 - Hepatic failure, unspecified without coma; R65.20 - Severe sepsis without septic shock SNOMED: 90230774 (3) Hypokalemia ICD Codes: E87.6 - Hypokalemia; R65.20 - Severe sepsis without septic shock SNOMED: 98514881 (4) Ascites ICD Codes: R18.8 - Other ascites SNOMED: 007891773 (5) Severe sepsis ICD Codes: A41.9 - Sepsis, unspecified organism; R65.20 - Severe sepsis without septic shock SNOMED: 80615192 (6) AMS (altered mental status) ICD Codes: R41.82 - Altered mental status, unspecified SNOMED: 458557550 Assessment/Plan: Assessment/Plan Problem List: (1) Cirrhosis ICD Codes: K74.60 - Unspecified cirrhosis of liver SNOMED: 42092830 (2) Hepatic encephalopathy ICD Codes: K72.90 - Hepatic failure, unspecified without coma; R65.20 - Severe sepsis without septic shock SNOMED: 30802542 (3) Hypokalemia ICD Codes: E87.6 - Hypokalemia; R65.20 - Severe sepsis without septic shock SNOMED: 18192751 (4) Ascites ICD Codes: R18.8 - Other ascites SNOMED: 194749147 (5) Severe sepsis ICD Codes: A41.9 - Sepsis, unspecified organism; R65.20 - Severe sepsis without septic shock SNOMED: 69101510 (6) AMS (altered mental status) ICD Codes: R41.82 - Altered mental status, unspecified SNOMED: 615440063 Assessment/Plan: lactulose PPI f/u ammonia level fu hepatitis panel>>> neg s/p repeat paracentesis x3 lasix aldactone repeat labs albumin Mejia Encarnacion MD Nov 19, 2020 15:31
[2020-11-19 16:00] VITALS: BP 110/74
--- NOTE | 2020-11-19 18:13 | NUR ---
NURSE NOTES: Notified Dr. Encarnacion regarding ammonia level [address] Encarnacion aware and lactulose order request was dismissed.
--- NOTE | 2020-11-19 19:00 | NUR ---
NURSE HAND-OFF: Important Events on Shift: possible discharge tomorrow, bipap at night as needed, endorsed to night cleaner Patient Status: full code, stable condition Diet: CCHO medium Pending Orders: [] Pending Results/Labs:[] Pending MD notification:[] Latest Vital Signs: Temperature 97.9 , Pulse 95 , B/P 110 /74 , Respiratory Rate 19 , O2 SAT 97 , Bi-pap, O2 Flow Rate 3.0 . Vital Sign Comment: [] Latest Childs Fall Score: 70 Fall Risk: High Risk Safety Measures: Call light Within Reach, Bed Alarm Zone 2, Side Rails Side Rails x3, Bed position Low and Locked. Fall Precautions: Yellow Socks Yellow Gown Door Sign Patient Fall Education Report given to ROXI Méndez.
--- NOTE | 2020-11-19 19:05 | NUR ---
NURSE NOTES: Received report from ROXI Fuchs. Pt is laying in bed, A&Ox4 in no distress or pain. Bed locked and in lowest position, call light within reach, side rails up x3. Will continue to monitor.
[2020-11-19 20:00] VITALS: BP 123/69
[2020-11-20] VITALS: BP 107/74
[2020-11-20 04:00] VITALS: BP 112/70
[2020-11-20] MEDS: Midodrine 10mg tab ORAL SCH ×3 (05:19→22:00)
[2020-11-20] MEDS: NovoLOG Insulin Flexpen SUBQ SCH ×4 (06:30→20:34)
--- NOTE | 2020-11-20 07:00 | NUR ---
NURSE HAND-OFF: Important Events on Shift: BM x1 Patient Status: sleeping Diet: ccho medium Pending Orders: Pending Results/Labs: Pending MD notification: Latest Vital Signs: Temperature 97.0 , Pulse 100 , B/P 112 /70 , Respiratory Rate 16 , O2 SAT 95 , Bi-pap, O2 Flow Rate 3.0 . Vital Sign Comment: VSS Latest Childs Fall Score: 70 Fall Risk: High Risk Safety Measures: Call light Within Reach, Bed Alarm Zone 2, Side Rails Side Rails x3, Bed position Low and Locked. Fall Precautions: Yellow Socks Yellow Gown Door Sign Patient Fall Education Report given to ROXI Ross.
--- NOTE | 2020-11-20 07:04 | General Progress Note ---
Subjective ROS Limited/Unobtainable: No Allergies: Coded Allergies: No Known Allergies (Unverified , 10/02/16) Objective Last 24 Hour Vital Signs Date Time Temp Pulse Resp B/P (MAP) Pulse Ox O2 Delivery O2 Flow Rate FiO2 11/20/20 04:00 97.0 100 16 112/70 (84) 95 11/20/20 00:00 97.1 100 20 107/74 (85) 98 11/19/20 21:00 99 Nasal Cannula 3.0 32 11/19/20 21:00 Nasal Cannula 3.0 11/19/20 20:00 97.0 100 20 123/69 (87) 99 11/19/20 18:33 97.9 11/19/20 16:00 97.9 95 19 110/74 (86) 97 11/19/20 12:31 97.5 11/19/20 12:00 97.9 97 18 104/70 (81) 98 11/19/20 09:00 Nasal Cannula 3.0 11/19/20 08:00 97.5 94 18 112/71 (85) 97 Intake and Output 11/19/20 11/20/20 19:00 07:00 Intake Total 480 ml 950 ml Output Total 500 ml 900 ml Balance -20 ml 50 ml Intake Oral 480 ml 950 ml Output Urine Total 500 ml 900 ml # Voids 1 # Bowel Movements 2 2 Laboratory Tests 11/19/20 08:07: White Blood Count 11.3H, Red Blood Count 2.86L, Hemoglobin 9.7L, Hematocrit 30.9L, Mean Corpuscular Volume 108H, Mean Corpuscular Hemoglobin 34.0H, Mean Corpuscular Hemoglobin Concent 31.5L, Red Cell Distribution Width 19.4H, Platelet Count 294, Mean Platelet Volume 5.2L, Neutrophils (%) (Auto) 83.9H, Lymphocytes (%) (Auto) 7.0L, Monocytes (%) (Auto) 6.8, Eosinophils (%) (Auto) 1.3, Basophils (%) (Auto) 1.0, Sodium Level 133L, Potassium Level 4.1, Chloride Level 96L, Carbon Dioxide Level 32, Anion Gap 5, Blood Urea Nitrogen 22H, Creatinine 0.9, Estimat Glomerular Filtration Rate > 60, Glucose Level 137H, Calcium Level 8.6 Height (Feet): 6 Height (Inches): 1.00 Weight (Pounds): 200 General Appearance: no apparent distress EENT: normal ENT inspection Neck: supple Cardiovascular: normal rate Respiratory/Chest: decreased breath sounds Abdomen: non tender, soft, hypoactive bowel sounds Extremities: non-tender Assessment/Plan Problem List: (1) Cirrhosis ICD Codes: K74.60 - Unspecified cirrhosis of liver SNOMED: 72804137 (2) Hepatic encephalopathy ICD Codes: K72.90 - Hepatic failure, unspecified without coma; R65.20 - Severe sepsis without septic shock SNOMED: 13811105 (3) Hypokalemia ICD Codes: E87.6 - Hypokalemia; R65.20 - Severe sepsis without septic shock SNOMED: 59377112 (4) Ascites ICD Codes: R18.8 - Other ascites SNOMED: 072530629 (5) Severe sepsis ICD Codes: A41.9 - Sepsis, unspecified organism; R65.20 - Severe sepsis without septic shock SNOMED: 79420690 (6) AMS (altered mental status) ICD Codes: R41.82 - Altered mental status, unspecified SNOMED: 689874268 Assessment/Plan: Assessment/Plan Problem List: (1) Cirrhosis ICD Codes: K74.60 - Unspecified cirrhosis of liver SNOMED: 30187898 (2) Hepatic encephalopathy ICD Codes: K72.90 - Hepatic failure, unspecified without coma; R65.20 - Severe sepsis without septic shock SNOMED: 09981925 (3) Hypokalemia ICD Codes: E87.6 - Hypokalemia; R65.20 - Severe sepsis without septic shock SNOMED: 87568197 (4) Ascites ICD Codes: R18.8 - Other ascites SNOMED: 911979343 (5) Severe sepsis ICD Codes: A41.9 - Sepsis, unspecified organism; R65.20 - Severe sepsis without septic shock SNOMED: 91607326 (6) AMS (altered mental status) ICD Codes: R41.82 - Altered mental status, unspecified SNOMED: 360112721 Assessment/Plan: lactulose PPI f/u ammonia level fu hepatitis panel>>> neg s/p repeat paracentesis x3 lasix aldactone repeat labs Mejia Encarnacion MD Nov 20, 2020 07:04
[2020-11-20 07:23] LABS: BASOPHILS % (AUTO) 1.4 % (0.0-2.0); EOSINOPHILS % (AUTO) 1.3 % (0.0-3.0); HEMATOCRIT 29.8 % (42.0-52.0); HEMOGLOBIN 9.7 G/DL (14.2-18.0); LYMPHOCYTES % (AUTO) 8.9 % (20.0-45.0); MEAN CORPUSCULAR VOLUME 107 FL (80-99); MONOCYTES % (AUTO) 6.3 % (1.0-10.0); NEUTROPHILS % (AUTO) 82.2 % (45.0-75.0); PLATELET COUNT 298 K/UL (150-450); RED BLOOD COUNT 2.79 M/UL (4.70-6.10); RED CELL DISTRIBUTION WIDTH 19.1 % (11.6-14.8); WHITE BLOOD COUNT 11.2 K/UL (4.8-10.8)
--- NOTE | 2020-11-20 07:30 | NUR ---
NURSE NOTES: RN received report from Nazario, patient in bed [id number]. Patient c/o pain of 9 after eating breakfast. Per patient, he has pain whenever he eats. Pain medication will be administered. Patient denies SOB on 2 L of NC. Per patient, he has been smoking for 25 years and just stopped smoking recently. RN suggested to raise the HOB to optimize breathing but patient refused because it will induce pain. Abdomen is largely distended, non tender. IV is intact, dry, clean, patent and asymptomatic. Bed in lowest position and locked, bed alarm on. Call light within reach and patient is able to make needs known. Will continue to monitor.
[2020-11-20 08:00] VITALS: BP 104/70
[2020-11-20 08:02] LABS: ALANINE AMINOTRANSFERASE 14 U/L (12-78); ALBUMIN 1.6 G/DL (3.4-5.0); ALBUMIN/GLOBULIN RATIO 0.3 (1.0-2.7); ALKALINE PHOSPHATASE 141 U/L (46-116); ANION GAP 4 mmol/L (5-15); ASPARTATE AMINO TRANSFERASE 40 U/L (15-37); BILIRUBIN,TOTAL 0.8 MG/DL (0.2-1.0); BLOOD UREA NITROGEN 21 mg/dL (7-18); CALCIUM 8.6 MG/DL (8.5-10.1); CARBON DIOXIDE 34 MMOL/L (21-32); CHLORIDE 97 MMOL/L (98-107); CREATININE 0.9 MG/DL (0.55-1.30); POTASSIUM 4.1 MMOL/L (3.5-5.1); SODIUM 135 MMOL/L (136-145)
[2020-11-20] MEDS: Lactulose 20gm/30ml UDC ORAL SCH ×2 (08:24→08:54)
[2020-11-20] MEDS: Phospha 250 Neutral tab ORAL SCH ×3 (08:24→18:18)
[2020-11-20] MEDS: Magnesium Oxide 400mg tab ORAL SCH ×3 (08:24→18:18)
[2020-11-20] MEDS: Vitamin D 1000 units Tab ORAL SCH (08:25)
--- NOTE | 2020-11-20 08:25 | Infectious Diseases Prog Note ---
Assessment/Plan 60yo M with: Sepsis Afebrile Hypoxia on BiPAP >> NRB mask >> venti mask Leukocytosis to 14, improving Lymphopenia 11/01 BCx NTD COVID PCR neg CXR: Elevated right hemidiaphragm. Possible right basilar airspace disease and right effusion. CTH: No acute process EtOH abuse Cirrhosis, Fatty liver Masive ascites Elevated AST to 48 Acute hep panel neg 11/01 CT A/P: CIRRHOSIS WITH LARGE AMOUNT OF ASCITES. SPLENIC GRANULOMAS. SLUDGE IN THE GALLBLADDER. SMALL RIGHT PLEURAL EFFUSION WITH COMPRESSIVE ATELECTASIS RIGHT LOWER LOBE. ELEVATED RIGHT HEMIDIAPHRAGM. 11/02 Paracentesis, 10.2L removed 838 RBC, 142 WBC, 2%PMN, 94%Searcy's Cx - NTD DAVIDE vs CKD, Cr 2.4, improving HIV screen neg PMH: EtOH abuse, stopped drinking in Sep 2020 Fatty liver DM2 HTN Plan: Cont to monitor off abx Trend WBC, overall stable/improving off abx OK to d/c from ID standpoint 11/11 SP Zosyn #10 11/03 SP vanco #2 Monitor CBC/CMP Monitor temp curve, hemodynamics Monitor resp status D/w RN Thank you for this consult. [facility] will continue to follow. Subjective Allergies: Coded Allergies: No Known Allergies (Unverified , 10/02/16) AF NAD on 3L NC WBC 11, stable Asking if he can work w/ PT Objective Last 24 Hour Vital Signs Date Time Temp Pulse Resp B/P (MAP) Pulse Ox O2 Delivery O2 Flow Rate FiO2 11/20/20 08:00 97.7 108 20 104/70 (81) 93 11/20/20 04:00 97.0 100 16 112/70 (84) 95 11/20/20 00:00 97.1 100 20 107/74 (85) 98 11/19/20 21:00 99 Nasal Cannula 3.0 32 11/19/20 21:00 Nasal Cannula 3.0 11/19/20 20:00 97.0 100 20 123/69 (87) 99 11/19/20 18:33 97.9 11/19/20 16:00 97.9 95 19 110/74 (86) 97 11/19/20 12:31 97.5 11/19/20 12:00 97.9 97 18 104/70 (81) 98 11/19/20 09:00 Nasal Cannula 3.0 Height (Feet): 6 Height (Inches): 1.00 Weight (Pounds): 200 Gen: NAD HEENT: NCAT, EOMI Pulm: BL chest rise Abd: Distended, soft, +fluid wave Ext: No c/c/e Neuro: Awake, interactive Laboratory Tests Test 11/20/20 06:12 White Blood Count 11.2 K/UL (4.8-10.8) H Red Blood Count 2.79 M/UL (4.70-6.10) L Hemoglobin 9.7 G/DL (14.2-18.0) L Hematocrit 29.8 % (42.0-52.0) L Mean Corpuscular Volume 107 FL (80-99) H Mean Corpuscular Hemoglobin 34.8 PG (27.0-31.0) H Mean Corpuscular Hemoglobin Concent 32.5 G/DL (32.0-36.0) Red Cell Distribution Width 19.1 % (11.6-14.8) H Platelet Count 298 K/UL (150-450) Mean Platelet Volume 5.3 FL (6.5-10.1) L Neutrophils (%) (Auto) 82.2 % (45.0-75.0) H Lymphocytes (%) (Auto) 8.9 % (20.0-45.0) L Monocytes (%) (Auto) 6.3 % (1.0-10.0) Eosinophils (%) (Auto) 1.3 % (0.0-3.0) Basophils (%) (Auto) 1.4 % (0.0-2.0) Sodium Level 135 MMOL/L (136-145) L Potassium Level 4.1 MMOL/L (3.5-5.1) Chloride Level 97 MMOL/L (98-107) L Carbon Dioxide Level 34 MMOL/L (21-32) H Anion Gap 4 mmol/L (5-15) L Blood Urea Nitrogen 21 mg/dL (7-18) H Creatinine 0.9 MG/DL (0.55-1.30) Estimat Glomerular Filtration Rate > 60 mL/min (>60) Glucose Level 96 MG/DL (74-106) Calcium Level 8.6 MG/DL (8.5-10.1) Total Bilirubin 0.8 MG/DL (0.2-1.0) Aspartate Amino Transf (AST/SGOT) 40 U/L (15-37) H Alanine Aminotransferase (ALT/SGPT) 14 U/L (12-78) Alkaline Phosphatase 141 U/L (46-116) H Total Protein 6.9 G/DL (6.4-8.2) Albumin 1.6 G/DL (3.4-5.0) L Globulin 5.3 g/dL Albumin/Globulin Ratio 0.3 (1.0-2.7) L Current Medications Medications (Trade) Dose Ordered Sig/Kylah Route PRN Reason Start Time Stop Time Status Last Admin Dose Admin Acetaminophen (Tylenol) 500 mg Q6H PRN ORAL Mild Pain 11/02/20 08:30 12/02/20 08:29 11/13/20 08:33 Acetaminophen (Tylenol) 500 mg Q6H PRN ORAL fever > 100.2 11/02/20 08:45 12/02/20 08:44 Acetaminophen/ Hydrocodone Bitart ([place] 5/325) 1 tab Q6H PRN ORAL Severe Pain (Pain Scale 7-10) 11/18/20 13:00 11/25/20 12:59 11/19/20 18:03 Allopurinol (Zyloprim) 200 mg DAILY ORAL 11/04/20 15:00 12/04/20 14:59 11/19/20 08:35 Dextrose (Dextrose 50%) 25 ml Q30M PRN IV Hypoglycemia 11/01/20 18:30 01/30/21 18:29 Dextrose (Dextrose 50%) 50 ml Q30M PRN IV Hypoglycemia 11/01/20 18:30 01/30/21 18:29 Folic Acid (Folate) 3 mg DAILY ORAL 11/03/20 13:15 12/03/20 13:14 11/19/20 08:34 Furosemide (Lasix) 20 mg DAILY IV 11/13/20 10:00 12/13/20 09:59 11/19/20 08:41 Heparin Sodium (Porcine) (Heparin 5000 units/ml) 5,000 units EVERY 12 HOURS SUBQ 11/01/20 21:00 12/16/20 20:59 11/19/20 20:41 Insulin Aspart (NovoLOG) BEFORE MEALS AND HS SUBQ 11/01/20 21:00 01/30/21 20:59 11/18/20 11:43 Lactulose (Cephulac) 20 gm BID ORAL 11/20/20 09:00 12/20/20 08:59 Magnesium Oxide (Mag-Ox 400mg) 400 mg THREE TIMES A DAY ORAL 11/13/20 13:00 12/13/20 12:59 11/19/20 17:18 Midodrine (Pro-Amatine) 10 mg Q8HR ORAL 11/02/20 14:00 01/31/21 13:59 11/19/20 12:49 Pantoprazole (Protonix) 40 mg DAILY ORAL 11/14/20 09:00 12/14/20 08:59 11/19/20 08:34 Phosphorus (Phospha 250 Neutral) 250 mg THREE TIMES A DAY ORAL 11/13/20 13:00 12/13/20 12:59 11/19/20 17:18 Spironolactone (Aldactone) 100 mg DAILY ORAL 11/16/20 09:00 12/16/20 08:59 11/19/20 10:47 Vitamin D (Vitamin D) 5,000 unit DAILY ORAL 11/16/20 09:00 12/16/20 08:59 11/19/20 08:34 Viviana Casper M.D. Nov 20, 2020 08:25
[2020-11-20] MEDS: Allopurinol 100mg Tab ORAL SCH (08:26)
[2020-11-20] MEDS: Spironolactone 50mg tab ORAL SCH (08:26)
--- NOTE | 2020-11-20 08:30 | NUR ---
NURSE NOTES: RN held heparin because ecchymosis on bilateral lower arms and chest were noted. RN made Dr. Coombs aware about ecchymosis and holding heparin and patient wanting physical therapy.
[2020-11-20] MEDS: Heparin 5000 units/ml inj SUBQ SCH ×2 (08:32→20:31)
--- NOTE | 2020-11-20 09:54 | NUR ---
NURSE NOTES: RN raised the NC to 3 L because the patient c/o SOB. RN raised the HOB for optimal breathing position. Will continue to monitor.
--- NOTE | 2020-11-20 10:24 | NUR ---
NURSE NOTES: RN made Dr. Casper about patient's SOB. Dr. Casper said he is cleared for DC from infectious disease standpoint and that SOB is from the abdominal distention. Will continue to monitor.
--- NOTE | 2020-11-20 10:51 | Nephrology Progress Note ---
Assessment/Plan Problem List: (1) Renal failure (ARF), acute on chronic (2) Electrolyte imbalance (3) Hypokalemia (4) Cirrhosis (5) DMII (diabetes mellitus, type 2) (6) Anemia (7) HTN (hypertension) Assessment Renal failure most likely acute on chronic Electrolyte imbalances, hypokalemia Sepsis Hepatic encephalopathy, ascites, fatty liver Anemia History of EtOH abuse, history of tobacco abuse, history of drug abuse Diabetes mellitus type 2 Hypertension Lymphopenia, leukocytosis, hypoxia Plan November 20: Labs reviewed. Renal parameters stable. Massive ascites and GI discomfort persists. Medication list reviewed. November 19: Labs reviewed. Serum sodium 133. Normal saline 500 cc bolus given. Continue per consultants. November 18: Labs reviewed. Abnormal electrolytes addressed. Continue per consultants November 17: Labs reviewed. Renal parameters stable. Medication list reviewed. On Lasix and Aldactone. We will continue to monitor blood chemistries and electrolytes. November 16: Labs reviewed. Electrolytes within normal limit now. Continue her current management. November 15: Labs reviewed. Low magnesium addressed. Continue per current management. November 14: Labs reviewed. Renal parameters are stable continue per current management. Vitamin D supplement given. November 13: Labs reviewed. Normal renal parameters. Abnormal electrolytes noted and addressed. Vitamin D level results still pending November 12: Labs reviewed. Serum creatinine now within normal limits. Much improved from renal standpoint of view. November 11: Labs reviewed. Serum creatinine 1.6. Stable from renal standpoint reviewed. November 10: Labs reviewed. Serum creatinine lowered to 1.9. Continue to monitor renal parameters. Magnesium supplement ordered. November 09: No CHEM panel drawn today. Will DC Hernandez due to pain in the urethra. We will continue to monitor renal parameters. Continue per consultants. November 08: Labs reviewed. Serum creatinine 2.3 unchanged. Electrolytes within normal limit. Continue per consultants. November 07: Labs reviewed. Serum creatinine down to 2.3. Continue to monitor electrolytes. Low magnesium addressed. November 06: Labs reviewed. Serum creatinine 2.5 unchanged. Continue per consultants. November 05: Labs reviewed. Serum creatinine plateauing. Status quo. Electrolyte acceptable. Now on oxygen by cannula. Continue per consultants. November 04 labs reviewed. Patient full code. On Venturi mask. Low potassium addressed. Serum creatinine rising. Continue to monitor renal parameters. Allopurinol initiated November 03: Labs reviewed. Medication list reviewed. Abnormal electrolyte addressed. Continue monitor renal parameters. Continue per consultants. Previously: Trial of 3% saline and albumin bolus Potassium supplement Monitor renal parameters, ammonia, electrolytes ordered Subjective ROS Limited/Unobtainable: No Constitutional: Reports: malaise, weakness Objective Objective Last 24 Hour Vital Signs Date Time Temp Pulse Resp B/P (MAP) Pulse Ox O2 Delivery O2 Flow Rate FiO2 11/20/20 09:58 97 Nasal Cannula 3.0 32 11/20/20 09:00 Nasal Cannula 3.0 11/20/20 08:00 97.7 108 20 104/70 (81) 93 11/20/20 04:00 97.0 100 16 112/70 (84) 95 11/20/20 00:00 97.1 100 20 107/74 (85) 98 11/19/20 21:00 99 Nasal Cannula 3.0 32 11/19/20 21:00 Nasal Cannula 3.0 11/19/20 20:00 97.0 100 20 123/69 (87) 99 11/19/20 18:33 97.9 11/19/20 16:00 97.9 95 19 110/74 (86) 97 11/19/20 12:31 97.5 11/19/20 12:00 97.9 97 18 104/70 (81) 98 Intake and Output 11/19/20 11/20/20 19:00 07:00 Intake Total 480 ml 950 ml Output Total 500 ml 900 ml Balance -20 ml 50 ml Intake Oral 480 ml 950 ml Output Urine Total 500 ml 900 ml # Voids 1 # Bowel Movements 2 2 Current Medications Medications (Trade) Dose Ordered Sig/Kylah Route PRN Reason Start Time Stop Time Status Last Admin Dose Admin Acetaminophen (Tylenol) 500 mg Q6H PRN ORAL Mild Pain 11/02/20 08:30 12/02/20 08:29 11/13/20 08:33 Acetaminophen (Tylenol) 500 mg Q6H PRN ORAL fever > 100.2 11/02/20 08:45 12/02/20 08:44 Acetaminophen/ Hydrocodone Bitart ([place] 5/325) 1 tab Q6H PRN ORAL Severe Pain (Pain Scale 7-10) 11/18/20 13:00 11/25/20 12:59 11/19/20 18:03 Allopurinol (Zyloprim) 200 mg DAILY ORAL 11/04/20 15:00 12/04/20 14:59 11/20/20 08:26 Dextrose (Dextrose 50%) 25 ml Q30M PRN IV Hypoglycemia 11/01/20 18:30 01/30/21 18:29 Dextrose (Dextrose 50%) 50 ml Q30M PRN IV Hypoglycemia 11/01/20 18:30 01/30/21 18:29 Folic Acid (Folate) 3 mg DAILY ORAL 11/03/20 13:15 12/03/20 13:14 11/20/20 08:27 Furosemide (Lasix) 20 mg DAILY IV 11/13/20 10:00 12/13/20 09:59 11/20/20 08:55 Heparin Sodium (Porcine) (Heparin 5000 units/ml) 5,000 units EVERY 12 HOURS SUBQ 11/01/20 21:00 12/16/20 20:59 11/19/20 20:41 Insulin Aspart (NovoLOG) BEFORE MEALS AND HS SUBQ 11/01/20 21:00 01/30/21 20:59 11/18/20 11:43 Lactulose (Cephulac) 20 gm BID ORAL 11/20/20 09:00 12/20/20 08:59 11/20/20 08:54 Magnesium Oxide (Mag-Ox 400mg) 400 mg THREE TIMES A DAY ORAL 11/13/20 13:00 12/13/20 12:59 11/20/20 08:24 Midodrine (Pro-Amatine) 10 mg Q8HR ORAL 11/02/20 14:00 01/31/21 13:59 11/19/20 12:49 Pantoprazole (Protonix) 40 mg DAILY ORAL 11/14/20 09:00 12/14/20 08:59 11/20/20 08:27 Phosphorus (Phospha 250 Neutral) 250 mg THREE TIMES A DAY ORAL 11/13/20 13:00 12/13/20 12:59 11/20/20 08:24 Spironolactone (Aldactone) 100 mg DAILY ORAL 11/16/20 09:00 12/16/20 08:59 11/20/20 08:26 Vitamin D (Vitamin D) 5,000 unit DAILY ORAL 11/16/20 09:00 12/16/20 08:59 11/20/20 08:25 Laboratory Tests 11/20/20 06:12: White Blood Count 11.2H, Red Blood Count 2.79L, Hemoglobin 9.7L, Hematocrit 29.8L, Mean Corpuscular Volume 107H, Mean Corpuscular Hemoglobin 34.8H, Mean Corpuscular Hemoglobin Concent 32.5, Red Cell Distribution Width 19.1H, Platelet Count 298, Mean Platelet Volume 5.3L, Neutrophils (%) (Auto) 82.2H, Lymphocytes (%) (Auto) 8.9L, Monocytes (%) (Auto) 6.3, Eosinophils (%) (Auto) 1.3, Basophils (%) (Auto) 1.4, Sodium Level 135L, Potassium Level 4.1, Chloride Level 97L, Carbon Dioxide Level 34H, Anion Gap 4L, Blood Urea Nitrogen 21H, Creatinine 0.9, Estimat Glomerular Filtration Rate > 60, Glucose Level 96, Calcium Level 8.6, Total Bilirubin 0.8, Aspartate Amino Transf (AST/SGOT) 40H, Alanine Aminotransferase (ALT/SGPT) 14, Alkaline Phosphatase 141H, Total Protein 6.9, Albumin 1.6L, Globulin 5.3, Albumin/Globulin Ratio 0.3L Height (Feet): 6 Height (Inches): 1.00 Weight (Pounds): 200 General Appearance: no apparent distress, lethargic Respiratory/Chest: decreased breath sounds Abdomen: distended, other - Situs Kalin Pozo MD Nov 20, 2020 10:51
[2020-11-20 12:00] VITALS: BP 101/72
--- NOTE | 2020-11-20 13:26 | NUR ---
NURSE NOTES: RN contacted pharmacy and talked to Gissel about unscanned medication [place] in the morning at 8:30. Since the medication administration cannot be back timed, RN is leaving a note here saying the administration time. The patient's pain after 30 min was 3. Will continue to monitor.
--- NOTE | 2020-11-20 14:04 | NUR ---
NURSE NOTES: Patient c/o clogged ears like he is underwater and was asking for tools to remove fluids. RN educated the patient not to irritate the ear canals because it may cause complications. Patient verbalized understanding. RN notified Dr. Coombs. No further orders at this time. Will continue to monitor.
--- NOTE | 2020-11-20 15:50 | NUR ---
CASE MANAGEMENT:REVIEW 11/20/20 SI: SEPSIS. HYPOXIA. ETOH ABUSE. ASCITES S/P PARACENTESIS~ 10.2 L REMOVED 97.7 103 20 101/72 94% ON 3L/NC WBC+11.2 NA+135 IS: LACTULOSE PO BID PROTONIX PO QD PHOSPHA PO TID MAG OXIDE PO TID ALDACTONE PO QD IV LASIX QD ALLOPURINOL PO QD FOLATE PO QD MIDODRINE PO Q8HRS HEPARIN SQ Q12 : MED/SURG STATUS DCP: FROM HOME.....[facility]? PLAN: NEED TO WEAN TO ROOM AIR...WILL NOT BE ABLE TO OBTAIN OXYGEN FOR HOME USE
[2020-11-20 16:00] VITALS: BP 104/68
--- NOTE | 2020-11-20 17:10 | Surgery Progress Note ---
Surgery Progress Note Subjective Symptoms: improved, tolerating diet, voiding well, passing flatus, pain decreased Objective Last 24 Hour Vital Signs Date Time Temp Pulse Resp B/P (MAP) Pulse Ox O2 Delivery O2 Flow Rate FiO2 11/20/20 12:00 97.7 103 20 101/72 (82) 94 11/20/20 09:58 97 Nasal Cannula 3.0 32 11/20/20 09:00 Nasal Cannula 3.0 11/20/20 08:00 97.7 108 20 104/70 (81) 93 11/20/20 04:00 97.0 100 16 112/70 (84) 95 11/20/20 00:00 97.1 100 20 107/74 (85) 98 11/19/20 21:00 99 Nasal Cannula 3.0 32 11/19/20 21:00 Nasal Cannula 3.0 11/19/20 20:00 97.0 100 20 123/69 (87) 99 11/19/20 18:33 97.9 I&O Intake and Output 11/19/20 11/20/20 19:00 07:00 Intake Total 480 ml 950 ml Output Total 500 ml 900 ml Balance -20 ml 50 ml Intake Oral 480 ml 950 ml Output Urine Total 500 ml 900 ml # Voids 1 # Bowel Movements 2 2 Dressing: dry Cardiovascular: RSR Respiratory: clear Abdomen: soft, flat, non-tender, present bowel sounds Extremities: no edema, no tenderness, no cyanosis Laboratory Tests Test 11/20/20 06:12 White Blood Count 11.2 K/UL (4.8-10.8) H Red Blood Count 2.79 M/UL (4.70-6.10) L Hemoglobin 9.7 G/DL (14.2-18.0) L Hematocrit 29.8 % (42.0-52.0) L Mean Corpuscular Volume 107 FL (80-99) H Mean Corpuscular Hemoglobin 34.8 PG (27.0-31.0) H Mean Corpuscular Hemoglobin Concent 32.5 G/DL (32.0-36.0) Red Cell Distribution Width 19.1 % (11.6-14.8) H Platelet Count 298 K/UL (150-450) Mean Platelet Volume 5.3 FL (6.5-10.1) L Neutrophils (%) (Auto) 82.2 % (45.0-75.0) H Lymphocytes (%) (Auto) 8.9 % (20.0-45.0) L Monocytes (%) (Auto) 6.3 % (1.0-10.0) Eosinophils (%) (Auto) 1.3 % (0.0-3.0) Basophils (%) (Auto) 1.4 % (0.0-2.0) Sodium Level 135 MMOL/L (136-145) L Potassium Level 4.1 MMOL/L (3.5-5.1) Chloride Level 97 MMOL/L (98-107) L Carbon Dioxide Level 34 MMOL/L (21-32) H Anion Gap 4 mmol/L (5-15) L Blood Urea Nitrogen 21 mg/dL (7-18) H Creatinine 0.9 MG/DL (0.55-1.30) Estimat Glomerular Filtration Rate > 60 mL/min (>60) Glucose Level 96 MG/DL (74-106) Calcium Level 8.6 MG/DL (8.5-10.1) Total Bilirubin 0.8 MG/DL (0.2-1.0) Aspartate Amino Transf (AST/SGOT) 40 U/L (15-37) H Alanine Aminotransferase (ALT/SGPT) 14 U/L (12-78) Alkaline Phosphatase 141 U/L (46-116) H Total Protein 6.9 G/DL (6.4-8.2) Albumin 1.6 G/DL (3.4-5.0) L Globulin 5.3 g/dL Albumin/Globulin Ratio 0.3 (1.0-2.7) L Plan Problems: (1) Deep tissue injury Assessment & Plan: Pt presented on admission with DTPI Thoracic Spine(L)1.8cm x (W)1cm. Base of Pressure Injury is purpuric with surrounding non-blanchable erythema. Pt complained of tenderness at site. Non-Blanchable erythema without induration noted to Sacrum,R and L Gluteal cheeks including Bilat Ischial tuberosities. Rocker bottom foot noted to Both R and L feet. Both heels are callused,dry and easily blanchable. Tx.Plan: Apply Cavilon Skin Barrier To Thoracic DTPI. Cover with Optifoam drsg. Change every 3 days and prn. Apply Moisture Barrier Paste to Sacrum. Cover with Optifoam drsg. Change every 3 days and prn. Apply Cavilon Skin Barrier to R and L gluteal cheeks and Bilat Is chial tuberosities with each Incontinence care. Reposition at least every 2Hours or as tolerated. Off-load heels with pillow. (2) Hepatic encephalopathy (3) Hypokalemia (4) Ascites (5) Severe sepsis (6) Cirrhosis Assessment & Plan: There is compressive atelectasis right lower lobe. Small right effusion noted. Right hemidiaphragm is elevated. There is a large amount of ascites. Slight nodularity of the hepatic contour noted suggestive of underlying cirrhotic changes. Spleen contains some scattered granulomas. Gallbladder is isodense to liver likely containing tumefactive sludge. The pancreas is unremarkable. Adrenals are normal in morphology. The kidneys are normal in size, shape and axis. Small bowel loops are nondistended. The colon is also nondistended with average amount of stool. The appendix is not visualized. There is no free air. No pathologic adenopathy demonstrated. Urinary bladder appears unremarkable. Degenerative changes of the lumbar spine noted. IMPRESSION: CIRRHOSIS WITH LARGE AMOUNT OF ASCITES. SPLENIC GRANULOMAS. SLUDGE IN THE GALLBLADDER. SMALL RIGHT PLEURAL EFFUSION WITH COMPRESSIVE ATELECTASIS RIGHT LOWER LOBE. ELEVATED RIGHT HEMIDIAPHRAGM. (7) AMS (altered mental status) (8) Electrolyte imbalance (9) Renal failure (ARF), acute on chronic (10) Anemia (11) HTN (hypertension) (12) DMII (diabetes mellitus, type 2) Theodore Alves Nov 20, 2020 17:10
--- NOTE | 2020-11-20 18:38 | Internal Med Progress Note ---
Subjective Date of Service: Nov 20, 2020 Physician Name Jered Case Attending Physician Ramon Coombs MD Current Medications Medications (Trade) Dose Ordered Sig/Kylah Route PRN Reason Start Time Stop Time Status Last Admin Dose Admin Acetaminophen (Tylenol) 500 mg Q6H PRN ORAL Mild Pain 11/02/20 08:30 12/02/20 08:29 11/13/20 08:33 Acetaminophen (Tylenol) 500 mg Q6H PRN ORAL fever > 100.2 11/02/20 08:45 12/02/20 08:44 Acetaminophen/ Hydrocodone Bitart ([place] 5/325) 1 tab Q6H PRN ORAL Severe Pain (Pain Scale 7-10) 11/18/20 13:00 11/25/20 12:59 11/19/20 18:03 Allopurinol (Zyloprim) 200 mg DAILY ORAL 11/04/20 15:00 12/04/20 14:59 11/20/20 08:26 Carbamide Peroxide (Debrox) 3 drop BEDTIME BOTH EARS 11/20/20 21:00 11/24/20 23:00 Dextrose (Dextrose 50%) 25 ml Q30M PRN IV Hypoglycemia 11/01/20 18:30 01/30/21 18:29 Dextrose (Dextrose 50%) 50 ml Q30M PRN IV Hypoglycemia 11/01/20 18:30 01/30/21 18:29 Folic Acid (Folate) 3 mg DAILY ORAL 11/03/20 13:15 12/03/20 13:14 11/20/20 08:27 Furosemide (Lasix) 20 mg DAILY IV 11/13/20 10:00 12/13/20 09:59 11/20/20 08:55 Heparin Sodium (Porcine) (Heparin 5000 units/ml) 5,000 units EVERY 12 HOURS SUBQ 11/01/20 21:00 12/16/20 20:59 11/19/20 20:41 Insulin Aspart (NovoLOG) BEFORE MEALS AND HS SUBQ 11/01/20 21:00 01/30/21 20:59 11/18/20 11:43 Lactulose (Cephulac) 20 gm BID ORAL 11/20/20 09:00 12/20/20 08:59 11/20/20 08:54 Magnesium Oxide (Mag-Ox 400mg) 400 mg THREE TIMES A DAY ORAL 11/13/20 13:00 12/13/20 12:59 11/20/20 18:18 Midodrine (Pro-Amatine) 10 mg Q8HR ORAL 11/02/20 14:00 01/31/21 13:59 11/20/20 13:25 Pantoprazole (Protonix) 40 mg DAILY ORAL 11/14/20 09:00 12/14/20 08:59 11/20/20 08:27 Phosphorus (Phospha 250 Neutral) 250 mg THREE TIMES A DAY ORAL 11/13/20 13:00 12/13/20 12:59 11/20/20 18:18 Spironolactone (Aldactone) 100 mg DAILY ORAL 11/16/20 09:00 12/16/20 08:59 11/20/20 08:26 Vitamin D (Vitamin D) 5,000 unit DAILY ORAL 11/16/20 09:00 12/16/20 08:59 11/20/20 08:25 Allergies: Coded Allergies: No Known Allergies (Unverified , 10/02/16) ROS Limited/Unobtainable: Yes Subjective 60 YO M with history of alcohol dependence admitted with shortness of breath. Now respiratroy failure. Cover for Int Med-DR Coombs. S/P paracentesis 11/02/20 Objective Last Vital Signs Date Time Temp Pulse Resp B/P (MAP) Pulse Ox O2 Delivery O2 Flow Rate FiO2 11/20/20 16:00 97.5 94 20 104/68 (80) 96 11/20/20 09:58 Nasal Cannula 3.0 32 Laboratory Tests Test 11/20/20 06:12 White Blood Count 11.2 K/UL (4.8-10.8) H Red Blood Count 2.79 M/UL (4.70-6.10) L Hemoglobin 9.7 G/DL (14.2-18.0) L Hematocrit 29.8 % (42.0-52.0) L Mean Corpuscular Volume 107 FL (80-99) H Mean Corpuscular Hemoglobin 34.8 PG (27.0-31.0) H Mean Corpuscular Hemoglobin Concent 32.5 G/DL (32.0-36.0) Red Cell Distribution Width 19.1 % (11.6-14.8) H Platelet Count 298 K/UL (150-450) Mean Platelet Volume 5.3 FL (6.5-10.1) L Neutrophils (%) (Auto) 82.2 % (45.0-75.0) H Lymphocytes (%) (Auto) 8.9 % (20.0-45.0) L Monocytes (%) (Auto) 6.3 % (1.0-10.0) Eosinophils (%) (Auto) 1.3 % (0.0-3.0) Basophils (%) (Auto) 1.4 % (0.0-2.0) Sodium Level 135 MMOL/L (136-145) L Potassium Level 4.1 MMOL/L (3.5-5.1) Chloride Level 97 MMOL/L (98-107) L Carbon Dioxide Level 34 MMOL/L (21-32) H Anion Gap 4 mmol/L (5-15) L Blood Urea Nitrogen 21 mg/dL (7-18) H Creatinine 0.9 MG/DL (0.55-1.30) Estimat Glomerular Filtration Rate > 60 mL/min (>60) Glucose Level 96 MG/DL (74-106) Calcium Level 8.6 MG/DL (8.5-10.1) Total Bilirubin 0.8 MG/DL (0.2-1.0) Aspartate Amino Transf (AST/SGOT) 40 U/L (15-37) H Alanine Aminotransferase (ALT/SGPT) 14 U/L (12-78) Alkaline Phosphatase 141 U/L (46-116) H Total Protein 6.9 G/DL (6.4-8.2) Albumin 1.6 G/DL (3.4-5.0) L Globulin 5.3 g/dL Albumin/Globulin Ratio 0.3 (1.0-2.7) L Intake and Output 11/19/20 11/20/20 19:00 07:00 Intake Total 480 ml 950 ml Output Total 500 ml 900 ml Balance -20 ml 50 ml Intake Oral 480 ml 950 ml Output Urine Total 500 ml 900 ml # Voids 1 # Bowel Movements 2 2 Objective Objective General: No acute distress, awake and alert HEENT: NCAT, sclera anicteric, PERRL, EOMI. Neck: Supple, no significant jugular venous distention, Lungs: Nasal canula; Fair inspiratory effort, , no Wheeze or Rales. Heart: Regular rate and rhythm, normal S1/S2, no murmurs Abdomen: soft, nontender, +distended. positive fluid shift, bowel sound present. / Rectal: Refused and deferred. Extremities: No Cyanosis , clubbing or edema. Neuro: A&O x 3, Able to move all extremities Skin: warm, no rash Assessment/Plan Assessment/Plan Assessment/Plan Assessment/Plan Sepsis Acute Hypoxia on BiPAP >> NRB mask >> venturi mask>>nasal canula alcohol abuse Liver Cirrhosis, Fatty liver Massive ascites renal failure DM2 HTN Plan: ABX=S/P vanco and Zosyn High volume paracentesis, COVID PCR=Neg F/u BCx GI=Dr Encarnacion Nephrol=Dr Pozo S/P paracentesis 11/02/20 Discharge planning Jered Case MD Nov 20, 2020 18:38
[2020-11-20] MEDS: HYDROcodone/Acetamin 5/325 tab ORAL PRN (19:16)
--- NOTE | 2020-11-20 19:40 | NUR ---
NURSE NOTES: Received report from [place]. AAO x 4, on NC 3l. IV site intact and patent. Condom cath in place. Denies pain or discomfort. ABD tendered and distended. No acute distress noted at this time. Bed locked, lowest position, alarm on, side rails up, call light within reach. Will continue to monitor.
--- NOTE | 2020-11-20 19:59 | NUR ---
NURSE HAND-OFF: Important Events on Shift:pain management, holding heparin, many bowel movements Patient Status: stable Diet: CCHO medium Pending Orders: n/a Pending Results/Labs:n/a Pending MD notification:n/a Latest Vital Signs: Temperature 97.5 , Pulse 94 , B/P 104 /68 , Respiratory Rate 20 , O2 SAT 93 , Bi-pap, O2 Flow Rate 3.0 . Vital Sign Comment: stable Latest Childs Fall Score: 70 Fall Risk: High Risk Safety Measures: Call light Within Reach, Bed Alarm Zone 2, Side Rails Side Rails x3, Bed position Low and Locked. Fall Precautions: Yellow Socks Yellow Gown Door Sign Patient Fall Education Report given to Seda.
[2020-11-20 20:00] VITALS: BP 112/69
[2020-11-20] MEDS: Carbamide Peroxide 6.5% Ot Sol 15ML BOTH EARS SCH (20:31)
[2020-11-20] MEDS ORDERED: Carbamide Peroxide 6.5% Ot Sol 15ML BOTH EARS SCH (21:00)
[2020-11-21] VITALS: BP 110/65
[2020-11-21 04:00] VITALS: BP 121/72
[2020-11-21] MEDS: Midodrine 10mg tab ORAL SCH ×3 (05:22→22:00)
[2020-11-21] MEDS: NovoLOG Insulin Flexpen SUBQ SCH ×4 (05:41→21:00)
[2020-11-21] MEDS: HYDROcodone/Acetamin 5/325 tab ORAL PRN ×2 (06:02→13:46)
[2020-11-21 06:12] LABS: BASOPHILS % (AUTO) 1.2 % (0.0-2.0); EOSINOPHILS % (AUTO) 0.9 % (0.0-3.0); HEMATOCRIT 29.1 % (42.0-52.0); HEMOGLOBIN 9.3 G/DL (14.2-18.0); LYMPHOCYTES % (AUTO) 8.3 % (20.0-45.0); MEAN CORPUSCULAR VOLUME 107 FL (80-99); MONOCYTES % (AUTO) 9.4 % (1.0-10.0); NEUTROPHILS % (AUTO) 80.2 % (45.0-75.0); PLATELET COUNT 285 K/UL (150-450); RED BLOOD COUNT 2.72 M/UL (4.70-6.10); RED CELL DISTRIBUTION WIDTH 18.8 % (11.6-14.8); WHITE BLOOD COUNT 10.4 K/UL (4.8-10.8)
[2020-11-21 06:18] LABS: ALANINE AMINOTRANSFERASE 16 U/L (12-78); ALBUMIN 1.5 G/DL (3.4-5.0); ALBUMIN/GLOBULIN RATIO 0.3 (1.0-2.7); ALKALINE PHOSPHATASE 129 U/L (46-116); ANION GAP 1 mmol/L (5-15); ASPARTATE AMINO TRANSFERASE 42 U/L (15-37); BILIRUBIN,TOTAL 0.9 MG/DL (0.2-1.0); BLOOD UREA NITROGEN 19 mg/dL (7-18); CALCIUM 8.6 MG/DL (8.5-10.1); CARBON DIOXIDE 34 MMOL/L (21-32); CHLORIDE 99 MMOL/L (98-107); POTASSIUM 4.4 MMOL/L (3.5-5.1); SODIUM 134 MMOL/L (136-145)
[2020-11-21 06:20] LABS: AMMONIA 10 umol/L (11-32)
--- NOTE | 2020-11-21 06:24 | NUR ---
NURSE HAND-OFF: Important Events on Shift:pain, anxiety Patient Status: Diet: Pending Orders: [] Pending Results/Labs:[] Pending MD notification:[] Latest Vital Signs: Temperature 97.5 , Pulse 106 , B/P 121 /72 , Respiratory Rate 20 , O2 SAT 92 , Bi-pap, O2 Flow Rate 3.0 . Vital Sign Comment: [] Latest Childs Fall Score: 70 Fall Risk: High Risk Safety Measures: Call light Within Reach, Bed Alarm Zone 2, Side Rails Side Rails x3, Bed position Low and Locked. Fall Precautions: Yellow Socks Yellow Gown Door Sign Patient Fall Education Addendum: 11/21/20 at 0709 by TAHMINA SCHMIDT RN RN Report given to Cody
[2020-11-21 07:03] LABS: PHOSPHORUS 4.2 MG/DL (2.5-4.9)
--- NOTE | 2020-11-21 07:20 | NUR ---
NURSE NOTES: RN received report from Seda and patient in bed [id number] in semi shelton position with NC on 3 L. No s/s of acute respiratory distress. Bed in lowest position and locked. Bed alarm on. Call light within reach and able to make needs known. Will continue to monitor.
--- NOTE | 2020-11-21 07:59 | NUR ---
CASE MANAGEMENT:REVIEW 11/21/20 SI: SEPSIS. HYPOXIA. ETOH ABUSE. ASCITES S/P PARACENTESIS~ 10.2 L REMOVED 97.5 106 20 121/72 92% ON 3L/NC H/H-9.3/29.1 CO2+34 IS: LACTULOSE PO BID PROTONIX PO QD PHOSPHA PO TID MAG OXIDE PO TID ALDACTONE PO QD IV LASIX QD ALLOPURINOL PO QD FOLATE PO QD MIDODRINE PO Q8HRS HEPARIN SQ Q12 : MED/SURG STATUS DCP: FROM HOME.....[facility]? PLAN: NEED TO WEAN TO ROOM AIR...
[2020-11-21 08:00] VITALS: BP 120/80
--- NOTE | 2020-11-21 08:08 | General Progress Note ---
Subjective ROS Limited/Unobtainable: No Allergies: Coded Allergies: No Known Allergies (Unverified , 10/02/16) Objective Last 24 Hour Vital Signs Date Time Temp Pulse Resp B/P (MAP) Pulse Ox O2 Delivery O2 Flow Rate FiO2 11/21/20 04:00 97.5 106 20 121/72 (88) 92 11/21/20 00:00 98.0 93 18 110/65 (80) 95 11/20/20 21:00 Nasal Cannula 3.0 11/20/20 20:00 97.9 94 18 112/69 (83) 93 11/20/20 19:46 97.5 11/20/20 19:41 93 Nasal Cannula 3.0 32 11/20/20 16:00 97.5 94 20 104/68 (80) 96 11/20/20 12:00 97.7 103 20 101/72 (82) 94 11/20/20 09:58 97 Nasal Cannula 3.0 32 11/20/20 09:00 Nasal Cannula 3.0 Intake and Output 11/20/20 11/21/20 19:00 07:00 Intake Total 480 ml Output Total 1700 ml 700 ml Balance -1700 ml -220 ml Intake Oral 480 ml Output Urine Total 1700 ml 700 ml # Voids 2 # Bowel Movements 4 Laboratory Tests 11/21/20 04:50: White Blood Count 10.4, Red Blood Count 2.72L, Hemoglobin 9.3L, Hematocrit 29.1L , Mean Corpuscular Volume 107H, Mean Corpuscular Hemoglobin 34.3H, Mean Corpuscular Hemoglobin Concent 32.1, Red Cell Distribution Width 18.8H, Platelet Count 285, Mean Platelet Volume 5.2L, Neutrophils (%) (Auto) 80.2H, Lymphocytes (%) (Auto) 8.3L, Monocytes (%) (Auto) 9.4, Eosinophils (%) (Auto) 0.9, Basophils (%) (Auto) 1.2, Sodium Level 134L, Potassium Level 4.4, Chloride Level 99, Carbon Dioxide Level 34H, Anion Gap 1L, Blood Urea Nitrogen 19H, Creatinine 1.0, Estimat Glomerular Filtration Rate > 60, Glucose Level 114H, Uric Acid 4.4, Calcium Level 8.6, Phosphorus Level 4.2, Magnesium Level 1.7L, Total Bilirubin 0.9, Aspartate Amino Transf (AST/SGOT) 42H, Alanine Aminotransferase (ALT/SGPT) 16, Alkaline Phosphatase 129H, Ammonia 10L, C-Reactive Protein, Quantitative 6.4H, Pro-B-Type Natriuretic Peptide 319H, Total Protein 6.7, Albumin 1.5L, Globulin 5.2, Albumin/Globulin Ratio 0.3L Height (Feet): 6 Height (Inches): 1.00 Weight (Pounds): 200 General Appearance: no apparent distress EENT: normal ENT inspection Neck: supple Cardiovascular: normal rate Respiratory/Chest: decreased breath sounds Abdomen: soft, hypoactive bowel sounds, distended Extremities: non-tender Assessment/Plan Problem List: (1) Cirrhosis ICD Codes: K74.60 - Unspecified cirrhosis of liver SNOMED: 71397318 (2) Hepatic encephalopathy ICD Codes: K72.90 - Hepatic failure, unspecified without coma; R65.20 - Severe sepsis without septic shock SNOMED: 34698382 (3) Hypokalemia ICD Codes: E87.6 - Hypokalemia; R65.20 - Severe sepsis without septic shock SNOMED: 23409934 (4) Ascites ICD Codes: R18.8 - Other ascites SNOMED: 363337279 (5) Severe sepsis ICD Codes: A41.9 - Sepsis, unspecified organism; R65.20 - Severe sepsis without septic shock SNOMED: 41365060 (6) AMS (altered mental status) ICD Codes: R41.82 - Altered mental status, unspecified SNOMED: 744582447 Assessment/Plan: Assessment/Plan Problem List: (1) Cirrhosis ICD Codes: K74.60 - Unspecified cirrhosis of liver SNOMED: 20163200 (2) Hepatic encephalopathy ICD Codes: K72.90 - Hepatic failure, unspecified without coma; R65.20 - Severe sepsis without septic shock SNOMED: 03271790 (3) Hypokalemia ICD Codes: E87.6 - Hypokalemia; R65.20 - Severe sepsis without septic shock SNOMED: 49211768 (4) Ascites ICD Codes: R18.8 - Other ascites SNOMED: 112575819 (5) Severe sepsis ICD Codes: A41.9 - Sepsis, unspecified organism; R65.20 - Severe sepsis without septic shock SNOMED: 45880512 (6) AMS (altered mental status) ICD Codes: R41.82 - Altered mental status, unspecified SNOMED: 858704324 Assessment/Plan: lactulose PPI f/u ammonia level fu hepatitis panel>>> neg s/p repeat paracentesis x3 lasix aldactone repeat labs Mejia Encarnacion MD Nov 21, 2020 08:08
[2020-11-21] MEDS: Lactulose 20gm/30ml UDC ORAL SCH ×2 (08:27→17:21)
[2020-11-21] MEDS: Phospha 250 Neutral tab ORAL SCH (08:28)
[2020-11-21] MEDS: Spironolactone 50mg tab ORAL SCH (08:28)
[2020-11-21] MEDS: Magnesium Oxide 400mg tab ORAL SCH ×3 (08:29→17:21)
[2020-11-21] MEDS: Allopurinol 100mg Tab ORAL SCH (08:29)
--- NOTE | 2020-11-21 08:30 | NUR ---
NURSE NOTES: RN made Dr. Encarnacion aware of ecchymosis on bilateral arms and chest and patient's desire for physical therapy. discontinued heparin and ordered SCDs and PT eval. RN verified orders one by one and carried out.
--- NOTE | 2020-11-21 08:32 | Infectious Diseases Prog Note ---
Assessment/Plan 60yo M with: Sepsis Afebrile Hypoxia on BiPAP >> NRB mask >> venti mask Leukocytosis to 14, improving Lymphopenia 11/01 BCx NTD COVID PCR neg CXR: Elevated right hemidiaphragm. Possible right basilar airspace disease and right effusion. CTH: No acute process EtOH abuse Cirrhosis, Fatty liver Massive ascites Elevated AST to 48 Acute hep panel neg 11/01 CT A/P: CIRRHOSIS WITH LARGE AMOUNT OF ASCITES. SPLENIC GRANULOMAS. SLUDGE IN THE GALLBLADDER. SMALL RIGHT PLEURAL EFFUSION WITH COMPRESSIVE ATELECTASIS RIGHT LOWER LOBE. ELEVATED RIGHT HEMIDIAPHRAGM. 11/02 Paracentesis, 10.2L removed 838 RBC, 142 WBC, 2%PMN, 94%Mobile's Cx - NTD DAVIDE vs CKD, Cr 2.4, improving HIV screen neg PMH: EtOH abuse, stopped drinking in Sep 2020 Fatty liver DM2 HTN Plan: Cont to monitor off abx Trend WBC, overall stable/improving off abx OK to d/c from ID standpoint 11/11 SP Zosyn #10 11/03 SP vanco #2 Monitor CBC/CMP Monitor temp curve, hemodynamics Monitor resp status D/w RN Thank you for this consult. [facility] will continue to follow. Subjective Allergies: Coded Allergies: No Known Allergies (Unverified , 10/02/16) AF NAD on 3L NC WBC improving to 10 Objective Last 24 Hour Vital Signs Date Time Temp Pulse Resp B/P (MAP) Pulse Ox O2 Delivery O2 Flow Rate FiO2 11/21/20 04:00 97.5 106 20 121/72 (88) 92 11/21/20 00:00 98.0 93 18 110/65 (80) 95 11/20/20 21:00 Nasal Cannula 3.0 11/20/20 20:00 97.9 94 18 112/69 (83) 93 11/20/20 19:46 97.5 11/20/20 19:41 93 Nasal Cannula 3.0 32 11/20/20 16:00 97.5 94 20 104/68 (80) 96 11/20/20 12:00 97.7 103 20 101/72 (82) 94 11/20/20 09:58 97 Nasal Cannula 3.0 32 11/20/20 09:00 Nasal Cannula 3.0 Height (Feet): 6 Height (Inches): 1.00 Weight (Pounds): 200 Gen: NAD HEENT: NCAT, EOMI Pulm: BL chest rise Abd: Distended, soft, +fluid wave Ext: No c/c/e Neuro: Awake, interactive Laboratory Tests Test 11/21/20 04:50 White Blood Count 10.4 K/UL (4.8-10.8) Red Blood Count 2.72 M/UL (4.70-6.10) L Hemoglobin 9.3 G/DL (14.2-18.0) L Hematocrit 29.1 % (42.0-52.0) L Mean Corpuscular Volume 107 FL (80-99) H Mean Corpuscular Hemoglobin 34.3 PG (27.0-31.0) H Mean Corpuscular Hemoglobin Concent 32.1 G/DL (32.0-36.0) Red Cell Distribution Width 18.8 % (11.6-14.8) H Platelet Count 285 K/UL (150-450) Mean Platelet Volume 5.2 FL (6.5-10.1) L Neutrophils (%) (Auto) 80.2 % (45.0-75.0) H Lymphocytes (%) (Auto) 8.3 % (20.0-45.0) L Monocytes (%) (Auto) 9.4 % (1.0-10.0) Eosinophils (%) (Auto) 0.9 % (0.0-3.0) Basophils (%) (Auto) 1.2 % (0.0-2.0) Sodium Level 134 MMOL/L (136-145) L Potassium Level 4.4 MMOL/L (3.5-5.1) Chloride Level 99 MMOL/L (98-107) Carbon Dioxide Level 34 MMOL/L (21-32) H Anion Gap 1 mmol/L (5-15) L Blood Urea Nitrogen 19 mg/dL (7-18) H Creatinine 1.0 MG/DL (0.55-1.30) Estimat Glomerular Filtration Rate > 60 mL/min (>60) Glucose Level 114 MG/DL (74-106) H Uric Acid 4.4 MG/DL (2.6-7.2) Calcium Level 8.6 MG/DL (8.5-10.1) Phosphorus Level 4.2 MG/DL (2.5-4.9) Magnesium Level 1.7 MG/DL (1.8-2.4) L Total Bilirubin 0.9 MG/DL (0.2-1.0) Aspartate Amino Transf (AST/SGOT) 42 U/L (15-37) H Alanine Aminotransferase (ALT/SGPT) 16 U/L (12-78) Alkaline Phosphatase 129 U/L (46-116) H Ammonia 10 umol/L (11-32) L C-Reactive Protein, Quantitative 6.4 mg/dL (0.00-0.90) H Pro-B-Type Natriuretic Peptide 319 pg/mL (0-125) H Total Protein 6.7 G/DL (6.4-8.2) Albumin 1.5 G/DL (3.4-5.0) L Globulin 5.2 g/dL Albumin/Globulin Ratio 0.3 (1.0-2.7) L Current Medications Medications (Trade) Dose Ordered Sig/Kylah Route PRN Reason Start Time Stop Time Status Last Admin Dose Admin Acetaminophen (Tylenol) 500 mg Q6H PRN ORAL Mild Pain 11/02/20 08:30 12/02/20 08:29 11/13/20 08:33 Acetaminophen (Tylenol) 500 mg Q6H PRN ORAL fever > 100.2 11/02/20 08:45 12/02/20 08:44 Acetaminophen/ Hydrocodone Bitart ([place] 5/325) 1 tab Q6H PRN ORAL Severe Pain (Pain Scale 7-10) 11/18/20 13:00 11/25/20 12:59 11/21/20 06:02 Allopurinol (Zyloprim) 200 mg DAILY ORAL 11/04/20 15:00 12/04/20 14:59 11/21/20 08:29 Carbamide Peroxide (Debrox) 3 drop BEDTIME BOTH EARS 11/20/20 21:00 11/24/20 23:00 11/20/20 20:31 Dextrose (Dextrose 50%) 25 ml Q30M PRN IV Hypoglycemia 11/01/20 18:30 01/30/21 18:29 Dextrose (Dextrose 50%) 50 ml Q30M PRN IV Hypoglycemia 11/01/20 18:30 01/30/21 18:29 Folic Acid (Folate) 3 mg DAILY ORAL 11/03/20 13:15 12/03/20 13:14 11/21/20 08:28 Furosemide (Lasix) 20 mg DAILY IV 11/13/20 10:00 12/13/20 09:59 11/21/20 08:30 Insulin Aspart (NovoLOG) BEFORE MEALS AND HS SUBQ 11/01/20 21:00 01/30/21 20:59 11/21/20 05:41 Lactulose (Cephulac) 20 gm BID ORAL 11/20/20 09:00 12/20/20 08:59 11/21/20 08:27 Magnesium Oxide (Mag-Ox 400mg) 400 mg THREE TIMES A DAY ORAL 11/13/20 13:00 12/13/20 12:59 11/21/20 08:29 Midodrine (Pro-Amatine) 10 mg Q8HR ORAL 11/02/20 14:00 01/31/21 13:59 11/20/20 13:25 Pantoprazole (Protonix) 40 mg DAILY ORAL 11/14/20 09:00 12/14/20 08:59 11/21/20 08:27 Phosphorus (Phospha 250 Neutral) 250 mg THREE TIMES A DAY ORAL 11/13/20 13:00 12/13/20 12:59 11/21/20 08:28 Spironolactone (Aldactone) 100 mg DAILY ORAL 11/16/20 09:00 12/16/20 08:59 11/21/20 08:28 Vitamin D (Vitamin D) 5,000 unit DAILY ORAL 11/16/20 09:00 12/16/20 08:59 11/20/20 08:25 Viviana Casper M.D. Nov 21, 2020 08:32
[2020-11-21] MEDS: Vitamin D 1000 units Tab ORAL SCH (09:17)
[2020-11-21 12:00] VITALS: BP 113/75
--- NOTE | 2020-11-21 12:28 | Internal Med Progress Note ---
Subjective Date of Service: Nov 21, 2020 Physician Name Case,Jered Attending Physician Ramon Coombs MD Current Medications Medications (Trade) Dose Ordered Sig/Kylah Route PRN Reason Start Time Stop Time Status Last Admin Dose Admin Acetaminophen (Tylenol) 500 mg Q6H PRN ORAL Mild Pain 11/02/20 08:30 12/02/20 08:29 11/13/20 08:33 Acetaminophen (Tylenol) 500 mg Q6H PRN ORAL fever > 100.2 11/02/20 08:45 12/02/20 08:44 Acetaminophen/ Hydrocodone Bitart ([place] 5/325) 1 tab Q6H PRN ORAL Severe Pain (Pain Scale 7-10) 11/18/20 13:00 11/25/20 12:59 11/21/20 06:02 Allopurinol (Zyloprim) 200 mg DAILY ORAL 11/04/20 15:00 12/04/20 14:59 11/21/20 08:29 Carbamide Peroxide (Debrox) 3 drop BEDTIME BOTH EARS 11/20/20 21:00 11/24/20 23:00 11/20/20 20:31 Dextrose (Dextrose 50%) 25 ml Q30M PRN IV Hypoglycemia 11/01/20 18:30 01/30/21 18:29 Dextrose (Dextrose 50%) 50 ml Q30M PRN IV Hypoglycemia 11/01/20 18:30 01/30/21 18:29 Folic Acid (Folate) 3 mg DAILY ORAL 11/03/20 13:15 12/03/20 13:14 11/21/20 08:28 Furosemide (Lasix) 20 mg DAILY IV 11/13/20 10:00 12/13/20 09:59 11/21/20 08:30 Insulin Aspart (NovoLOG) BEFORE MEALS AND HS SUBQ 11/01/20 21:00 01/30/21 20:59 11/21/20 05:41 Lactulose (Cephulac) 20 gm BID ORAL 11/20/20 09:00 12/20/20 08:59 11/21/20 08:27 Magnesium Oxide (Mag-Ox 400mg) 400 mg THREE TIMES A DAY ORAL 11/13/20 13:00 12/13/20 12:59 11/21/20 08:29 Midodrine (Pro-Amatine) 10 mg Q8HR ORAL 11/02/20 14:00 01/31/21 13:59 11/20/20 13:25 Pantoprazole (Protonix) 40 mg DAILY ORAL 11/14/20 09:00 12/14/20 08:59 11/21/20 08:27 Phosphorus (Phospha 250 Neutral) 250 mg THREE TIMES A DAY ORAL 11/13/20 13:00 12/13/20 12:59 11/21/20 08:28 Spironolactone (Aldactone) 100 mg DAILY ORAL 11/16/20 09:00 12/16/20 08:59 11/21/20 08:28 Vitamin D (Vitamin D) 5,000 unit DAILY ORAL 11/16/20 09:00 12/16/20 08:59 11/21/20 09:17 Allergies: Coded Allergies: No Known Allergies (Unverified , 10/02/16) ROS Limited/Unobtainable: Yes Subjective 60 YO M with history of alcohol dependence admitted with shortness of breath. Now respiratroy failure. Cover for Int Med-DR Coombs. S/P paracentesis 11/02/20 Objective Last Vital Signs Date Time Temp Pulse Resp B/P (MAP) Pulse Ox O2 Delivery O2 Flow Rate FiO2 11/21/20 09:00 Nasal Cannula 3.0 11/21/20 08:00 97.5 100 20 120/80 (93) 98 11/20/20 19:41 32 Laboratory Tests Test 11/21/20 04:50 White Blood Count 10.4 K/UL (4.8-10.8) Red Blood Count 2.72 M/UL (4.70-6.10) L Hemoglobin 9.3 G/DL (14.2-18.0) L Hematocrit 29.1 % (42.0-52.0) L Mean Corpuscular Volume 107 FL (80-99) H Mean Corpuscular Hemoglobin 34.3 PG (27.0-31.0) H Mean Corpuscular Hemoglobin Concent 32.1 G/DL (32.0-36.0) Red Cell Distribution Width 18.8 % (11.6-14.8) H Platelet Count 285 K/UL (150-450) Mean Platelet Volume 5.2 FL (6.5-10.1) L Neutrophils (%) (Auto) 80.2 % (45.0-75.0) H Lymphocytes (%) (Auto) 8.3 % (20.0-45.0) L Monocytes (%) (Auto) 9.4 % (1.0-10.0) Eosinophils (%) (Auto) 0.9 % (0.0-3.0) Basophils (%) (Auto) 1.2 % (0.0-2.0) Sodium Level 134 MMOL/L (136-145) L Potassium Level 4.4 MMOL/L (3.5-5.1) Chloride Level 99 MMOL/L (98-107) Carbon Dioxide Level 34 MMOL/L (21-32) H Anion Gap 1 mmol/L (5-15) L Blood Urea Nitrogen 19 mg/dL (7-18) H Creatinine 1.0 MG/DL (0.55-1.30) Estimat Glomerular Filtration Rate > 60 mL/min (>60) Glucose Level 114 MG/DL (74-106) H Uric Acid 4.4 MG/DL (2.6-7.2) Calcium Level 8.6 MG/DL (8.5-10.1) Phosphorus Level 4.2 MG/DL (2.5-4.9) Magnesium Level 1.7 MG/DL (1.8-2.4) L Total Bilirubin 0.9 MG/DL (0.2-1.0) Aspartate Amino Transf (AST/SGOT) 42 U/L (15-37) H Alanine Aminotransferase (ALT/SGPT) 16 U/L (12-78) Alkaline Phosphatase 129 U/L (46-116) H Ammonia 10 umol/L (11-32) L C-Reactive Protein, Quantitative 6.4 mg/dL (0.00-0.90) H Pro-B-Type Natriuretic Peptide 319 pg/mL (0-125) H Total Protein 6.7 G/DL (6.4-8.2) Albumin 1.5 G/DL (3.4-5.0) L Globulin 5.2 g/dL Albumin/Globulin Ratio 0.3 (1.0-2.7) L Intake and Output 11/20/20 11/21/20 19:00 07:00 Intake Total 480 ml Output Total 1700 ml 700 ml Balance -1700 ml -220 ml Intake Oral 480 ml Output Urine Total 1700 ml 700 ml # Voids 2 # Bowel Movements 4 Objective Objective General: No acute distress, awake and alert HEENT: NCAT, sclera anicteric, PERRL, EOMI. Neck: Supple, no significant jugular venous distention, Lungs: Nasal canula; Fair inspiratory effort, , no Wheeze or Rales. Heart: Regular rate and rhythm, normal S1/S2, no murmurs Abdomen: soft, nontender, +distended. positive fluid shift, bowel sound present. / Rectal: Refused and deferred. Extremities: No Cyanosis , clubbing or edema. Neuro: A&O x 3, Able to move all extremities Skin: warm, no rash Assessment/Plan Assessment/Plan Assessment/Plan Assessment/Plan Sepsis Acute Hypoxia on BiPAP >> NRB mask >> venturi mask>>nasal canula alcohol abuse Liver Cirrhosis, Fatty liver Massive ascites renal failure DM2 HTN Plan: ABX=S/P vanco and Zosyn High volume paracentesis, COVID PCR=Neg F/u BCx GI=Dr Encarnacion Nephrol=Dr Pozo S/P paracentesis 11/02/20 Discharge planning Jered Case MD Nov 21, 2020 12:28
--- NOTE | 2020-11-21 12:39 | Surgery Progress Note ---
Surgery Progress Note Subjective Symptoms: improved, tolerating diet, passing flatus, pain decreased Objective Last 24 Hour Vital Signs Date Time Temp Pulse Resp B/P (MAP) Pulse Ox O2 Delivery O2 Flow Rate FiO2 11/21/20 09:00 Nasal Cannula 3.0 11/21/20 08:00 97.5 100 20 120/80 (93) 98 11/21/20 04:00 97.5 106 20 121/72 (88) 92 11/21/20 00:00 98.0 93 18 110/65 (80) 95 11/20/20 21:00 Nasal Cannula 3.0 11/20/20 20:00 97.9 94 18 112/69 (83) 93 11/20/20 19:46 97.5 11/20/20 19:41 93 Nasal Cannula 3.0 32 11/20/20 16:00 97.5 94 20 104/68 (80) 96 I&O Intake and Output 11/20/20 11/21/20 19:00 07:00 Intake Total 480 ml Output Total 1700 ml 700 ml Balance -1700 ml -220 ml Intake Oral 480 ml Output Urine Total 1700 ml 700 ml # Voids 2 # Bowel Movements 4 Dressing: dry Wound: clean Cardiovascular: RSR Respiratory: clear Abdomen: soft, flat, non-tender, present bowel sounds, non-distended Extremities: no edema, no tenderness, no cyanosis Laboratory Tests Test 11/21/20 04:50 White Blood Count 10.4 K/UL (4.8-10.8) Red Blood Count 2.72 M/UL (4.70-6.10) L Hemoglobin 9.3 G/DL (14.2-18.0) L Hematocrit 29.1 % (42.0-52.0) L Mean Corpuscular Volume 107 FL (80-99) H Mean Corpuscular Hemoglobin 34.3 PG (27.0-31.0) H Mean Corpuscular Hemoglobin Concent 32.1 G/DL (32.0-36.0) Red Cell Distribution Width 18.8 % (11.6-14.8) H Platelet Count 285 K/UL (150-450) Mean Platelet Volume 5.2 FL (6.5-10.1) L Neutrophils (%) (Auto) 80.2 % (45.0-75.0) H Lymphocytes (%) (Auto) 8.3 % (20.0-45.0) L Monocytes (%) (Auto) 9.4 % (1.0-10.0) Eosinophils (%) (Auto) 0.9 % (0.0-3.0) Basophils (%) (Auto) 1.2 % (0.0-2.0) Sodium Level 134 MMOL/L (136-145) L Potassium Level 4.4 MMOL/L (3.5-5.1) Chloride Level 99 MMOL/L (98-107) Carbon Dioxide Level 34 MMOL/L (21-32) H Anion Gap 1 mmol/L (5-15) L Blood Urea Nitrogen 19 mg/dL (7-18) H Creatinine 1.0 MG/DL (0.55-1.30) Estimat Glomerular Filtration Rate > 60 mL/min (>60) Glucose Level 114 MG/DL (74-106) H Uric Acid 4.4 MG/DL (2.6-7.2) Calcium Level 8.6 MG/DL (8.5-10.1) Phosphorus Level 4.2 MG/DL (2.5-4.9) Magnesium Level 1.7 MG/DL (1.8-2.4) L Total Bilirubin 0.9 MG/DL (0.2-1.0) Aspartate Amino Transf (AST/SGOT) 42 U/L (15-37) H Alanine Aminotransferase (ALT/SGPT) 16 U/L (12-78) Alkaline Phosphatase 129 U/L (46-116) H Ammonia 10 umol/L (11-32) L C-Reactive Protein, Quantitative 6.4 mg/dL (0.00-0.90) H Pro-B-Type Natriuretic Peptide 319 pg/mL (0-125) H Total Protein 6.7 G/DL (6.4-8.2) Albumin 1.5 G/DL (3.4-5.0) L Globulin 5.2 g/dL Albumin/Globulin Ratio 0.3 (1.0-2.7) L Plan Problems: (1) Deep tissue injury Assessment & Plan: Pt presented on admission with DTPI Thoracic Spine(L)1.8cm x (W)1cm. Base of Pressure Injury is purpuric with surrounding non-blanchable erythema. Pt complained of tenderness at site. Non-Blanchable erythema without induration noted to Sacrum,R and L Gluteal cheeks including Bilat Ischial tuberosities. Rocker bottom foot noted to Both R and L feet. Both heels are callused,dry and easily blanchable. Tx.Plan: Apply Cavilon Skin Barrier To Thoracic DTPI. Cover with Optifoam drsg. Change every 3 days and prn. Apply Moisture Barrier Paste to Sacrum. Cover with Optifoam drsg. Change every 3 days and prn. Apply Cavilon Skin Barrier to R and L gluteal cheeks and Bilat Ischial tuberosities with each Incontinence care. Reposition at least every 2Hours or as tolerated. Off-load heels with pillow. (2) Hepatic encephalopathy (3) Hypokalemia (4) Ascites (5) Severe sepsis (6) Cirrhosis Assessment & Plan: There is compressive atelectasis right lower lobe. Small right effusion noted. Right hemidiaphragm is elevated. There is a large amount of ascites. Slight nodularity of the hepatic contour noted suggestive of underlying cirrhotic changes. Spleen contains some scattered granulomas. Gallbladder is isodense to liver likely containing tumefactive sludge. The pancreas is unremarkable. Adrenals are normal in morphology. The kidneys are normal in size, shape and axis. Small bowel loops are nondistended. The colon is also nondistended with average amount of stool. The appendix is not visualized. There is no free air. No pathologic adenopathy demonstrated. Urinary bladder appears unremarkable. Degenerative changes of the lumbar spine noted. IMPRESSION: CIRRHOSIS WITH LARGE AMOUNT OF ASCITES. SPLENIC GRANULOMAS. SLUDGE IN THE GALLBLADDER. SMALL RIGHT PLEURAL EFFUSION WITH COMPRESSIVE ATELECTASIS RIGHT LOWER LOBE. ELEVATED RIGHT HEMIDIAPHRAGM. (7) AMS (altered mental status) (8) Electrolyte imbalance (9) Renal failure (ARF), acute on chronic (10) Anemia (11) HTN (hypertension) (12) DMII (diabetes mellitus, type 2) Theodore Alves Nov 21, 2020 12:39
[2020-11-21] MEDS: CLOBETASOL 0.05% TOPIC SCH ×2 (13:46→17:21)
--- NOTE | 2020-11-21 13:46 | Nephrology Progress Note ---
Assessment/Plan Problem List: (1) Renal failure (ARF), acute on chronic (2) Electrolyte imbalance (3) Hypokalemia (4) Cirrhosis (5) DMII (diabetes mellitus, type 2) (6) Anemia (7) HTN (hypertension) Assessment Renal failure most likely acute on chronic Electrolyte imbalances, hypokalemia Sepsis Hepatic encephalopathy, ascites, fatty liver Anemia History of EtOH abuse, history of tobacco abuse, history of drug abuse Diabetes mellitus type 2 Hypertension Lymphopenia, leukocytosis, hypoxia Plan November 21: Labs reviewed. Abnormal electrolytes addressed. Neutra-Phos discontinued. Continue per current management. November 20: Labs reviewed. Renal parameters stable. Massive ascites and GI discomfort persists. Medication list reviewed. November 19: Labs reviewed. Serum sodium 133. Normal saline 500 cc bolus given. Continue per consultants. November 18: Labs reviewed. Abnormal electrolytes addressed. Continue per consultants November 17: Labs reviewed. Renal parameters stable. Medication list reviewed. On Lasix and Aldactone. We will continue to monitor blood chemistries and electrolytes. November 16: Labs reviewed. Electrolytes within normal limit now. Continue her current management. November 15: Labs reviewed. Low magnesium addressed. Continue per current management. November 14: Labs reviewed. Renal parameters are stable continue per current management. Vitamin D supplement given. November 13: Labs reviewed. Normal renal parameters. Abnormal electrolytes noted and addressed. Vitamin D level results still pending November 12: Labs reviewed. Serum creatinine now within normal limits. Much improved from renal standpoint of view. November 11: Labs reviewed. Serum creatinine 1.6. Stable from renal standpoint reviewed. November 10: Labs reviewed. Serum creatinine lowered to 1.9. Continue to mo nitor renal parameters. Magnesium supplement ordered. November 09: No CHEM panel drawn today. Will DC Hernandez due to pain in the urethra. We will continue to monitor renal parameters. Continue per consultants. November 08: Labs reviewed. Serum creatinine 2.3 unchanged. Electrolytes within normal limit. Continue per consultants. November 07: Labs reviewed. Serum creatinine down to 2.3. Continue to monitor electrolytes. Low magnesium addressed. November 06: Labs reviewed. Serum creatinine 2.5 unchanged. Continue per consultants. November 05: Labs reviewed. Serum creatinine plateauing. Status quo. Electrolyte acceptable. Now on oxygen by cannula. Continue per consultants. November 04 labs reviewed. Patient full code. On Venturi mask. Low potassium a ddressed. Serum creatinine rising. Continue to monitor renal parameters. Allopurinol initiated November 03: Labs reviewed. Medication list reviewed. Abnormal electrolyte addressed. Continue monitor renal parameters. Continue per consultants. Previously: Trial of 3% saline and albumin bolus Potassium supplement Monitor renal parameters, ammonia, electrolytes ordered Subjective ROS Limited/Unobtainable: No Constitutional: Reports: malaise, weakness Objective Objective Last 24 Hour Vital Signs Date Time Temp Pulse Resp B/P (MAP) Pulse Ox O2 Delivery O2 Flow Rate FiO2 11/21/20 12:00 97.6 107 20 113/75 (88) 98 11/21/20 09:00 Nasal Cannula 3.0 11/21/20 08:00 97.5 100 20 120/80 (93) 98 11/21/20 04:00 97.5 106 20 121/72 (88) 92 11/21/20 00:00 98.0 93 18 110/65 (80) 95 11/20/20 21:00 Nasal Cannula 3.0 11/20/20 20:00 97.9 94 18 112/69 (83) 93 11/20/20 19:46 97.5 11/20/20 19:41 93 Nasal Cannula 3.0 32 11/20/20 16:00 97.5 94 20 104/68 (80) 96 Intake and Output 11/20/20 11/21/20 19:00 07:00 Intake Total 480 ml Output Total 1700 ml 700 ml Balance -1700 ml -220 ml Intake Oral 480 ml Output Urine Total 1700 ml 700 ml # Voids 2 # Bowel Movements 4 Current Medications Medications (Trade) Dose Ordered Sig/Kylah Route PRN Reason Start Time Stop Time Status Last Admin Dose Admin Acetaminophen (Tylenol) 500 mg Q6H PRN ORAL Mild Pain 11/02/20 08:30 12/02/20 08:29 11/13/20 08:33 Acetaminophen (Tylenol) 500 mg Q6H PRN ORAL fever > 100.2 11/02/20 08:45 12/02/20 08:44 Acetaminophen/ Hydrocodone Bitart (Kiln 5/325) 1 tab Q6H PRN ORAL Severe Pain (Pain Scale 7-10) 11/18/20 13:00 11/25/20 12:59 11/21/20 06:02 Allopurinol (Zyloprim) 200 mg DAILY ORAL 11/04/20 15:00 12/04/20 14:59 11/21/20 08:29 Carbamide Peroxide (Debrox) 3 drop BEDTIME BOTH EARS 11/20/20 21:00 11/24/20 23:00 11/20/20 20:31 Clobetasol Propionate (Temovate) 1 applic TWICE A DAY TOPIC 11/21/20 13:30 02/19/21 13:29 Dextrose (Dextrose 50%) 25 ml Q30M PRN IV Hypoglycemia 11/01/20 18:30 01/30/21 18:29 Dextrose (Dextrose 50%) 50 ml Q30M PRN IV Hypoglycemia 11/01/20 18:30 01/30/21 18:29 Folic Acid (Folate) 3 mg DAILY ORAL 11/03/20 13:15 12/03/20 13:14 11/21/20 08:28 Furosemide (Lasix) 20 mg DAILY IV 11/13/20 10:00 12/13/20 09:59 11/21/20 08:30 Insulin Aspart (NovoLOG) BEFORE MEALS AND HS SUBQ 11/01/20 21:00 01/30/21 20:59 11/21/20 05:41 Lactulose (Cephulac) 20 gm BID ORAL 11/20/20 09:00 12/20/20 08:59 11/21/20 08:27 Magnesium Oxide (Mag-Ox 400mg) 400 mg THREE TIMES A DAY ORAL 11/13/20 13:00 12/13/20 12:59 11/21/20 08:29 Magnesium Sulfate 100 ml @ 100 mls/hr Q1H IVPB 11/21/20 13:45 11/21/20 15:44 UNV Midodrine (Pro-Amatine) 10 mg Q8HR ORAL 11/02/20 14:00 01/31/21 13:59 11/20/20 13:25 Pantoprazole (Protonix) 40 mg DAILY ORAL 11/14/20 09:00 12/14/20 08:59 11/21/20 08:27 Phosphorus (Phospha 250 Neutral) 250 mg THREE TIMES A DAY ORAL 11/13/20 13:00 12/13/20 12:59 11/21/20 08:28 Spironolactone (Aldactone) 100 mg DAILY ORAL 11/16/20 09:00 12/16/20 08:59 11/21/20 08:28 Vitamin D (Vitamin D) 5,000 unit DAILY ORAL 11/16/20 09:00 12/16/20 08:59 11/21/20 09:17 Laboratory Tests 11/21/20 04:50: White Blood Count 10.4, Red Blood Count 2.72L, Hemoglobin 9.3L, Hematocrit 29.1L , Mean Corpuscular Volume 107H, Mean Corpuscular Hemoglobin 34.3H, Mean Corpuscular Hemoglobin Concent 32.1, Red Cell Distribution Width 18.8H, Platelet Count 285, Mean Platelet Volume 5.2L, Neutrophils (%) (Auto) 80.2H, Lymphocytes (%) (Auto) 8.3L, Monocytes (%) (Auto) 9.4, Eosinophils (%) (Auto) 0.9, Basophils (%) (Auto) 1.2, Sodium Level 134L, Potassium Level 4.4, Chloride Level 99, Carbon Dioxide Level 34H, Anion Gap 1L, Blood Urea Nitrogen 19H, Creatinine 1.0, Estimat Glomerular Filtration Rate > 60, Glucose Level 114H, Uric Acid 4.4, Calcium Level 8.6, Phosphorus Level 4.2, Magnesium Level 1.7L, Total Bilirubin 0.9, Aspartate Amino Transf (AST/SGOT) 42H, Alanine Aminotransferase (ALT/SGPT) 16, Alkaline Phosphatase 129H, Ammonia 10L, C-Reactive Protein, Quantitative 6.4H, Pro-B-Type Natriuretic Peptide 319H, Total Protein 6.7, Albumin 1.5L, Globulin 5.2, Albumin/Globulin Ratio 0.3L Height (Feet): 6 Height (Inches): 1.00 Weight (Pounds): 200 General Appearance: confused Cardiovascular: tachycardia Respiratory/Chest: decreased breath sounds Abdomen: distended Kalin Pozo MD Nov 21, 2020 13:46
--- NOTE | 2020-11-21 14:00 | NUR ---
NURSE NOTES: RN made Dr. Case about patient scratching his arms and causing them to bleed. Dr. Case ordered Temovate to apply on his forearms. RN carried out the order and educated the patient not to scratch.
[2020-11-21 16:00] VITALS: BP 120/77
[2020-11-21 20:00] VITALS: BP 116/80
--- NOTE | 2020-11-21 20:10 | NUR ---
NURSE HAND-OFF: Important Events on Shift:application of Temovate on forearms Patient Status: stable Diet: CCHO medium Pending Orders: n/a Pending Results/Labs:n/a Pending MD notification:n/a Latest Vital Signs: Temperature 97.1 , Pulse 102 , B/P 116 /80 , Respiratory Rate 18 , O2 SAT 96 , Bi-pap, O2 Flow Rate 3.0 . Vital Sign Comment: stab;e Latest Childs Fall Score: 70 Fall Risk: High Risk Safety Measures: Call light Within Reach, Bed Alarm Zone 2, Side Rails Side Rails x3, Bed position Low and Locked. Fall Precautions: Yellow Socks Yellow Gown Door Sign Patient Fall Education Report given to Sarah.
--- NOTE | 2020-11-21 20:11 | NUR ---
NURSE NOTES: Received report & pt from Any. Pt in bed, a&xo4, on O2 via NC @ 3LM. No s/s of acute distress & no c/o pain at this time. Condom cath intact & draining yellow urine output to gravity. IV site intact & S/L'd. Bed in lowest position, call light within reach. Will continue to monitor.
[2020-11-21] MEDS: Carbamide Peroxide 6.5% Ot Sol 15ML BOTH EARS SCH (21:00)
[2020-11-22] VITALS: BP 129/79
--- NOTE | 2020-11-22 00:30 | NUR ---
NURSE NOTES: Cleaned pt. BM x 1 greenish color. Pt is in no acute distress. Given [place] for pain per pt's request.
[2020-11-22] MEDS: HYDROcodone/Acetamin 5/325 tab ORAL PRN ×4 (00:49→20:32)
[2020-11-22 04:00] VITALS: BP 128/77
[2020-11-22] MEDS: Midodrine 10mg tab ORAL SCH ×3 (05:13→21:45)
[2020-11-22] MEDS: NovoLOG Insulin Flexpen SUBQ SCH ×4 (06:03→20:32)
[2020-11-22 06:36] LABS: BASOPHILS % (AUTO) 1.4 % (0.0-2.0); EOSINOPHILS % (AUTO) 1.2 % (0.0-3.0); HEMATOCRIT 28.5 % (42.0-52.0); HEMOGLOBIN 9.1 G/DL (14.2-18.0); LYMPHOCYTES % (AUTO) 10.9 % (20.0-45.0); MEAN CORPUSCULAR VOLUME 107 FL (80-99); MONOCYTES % (AUTO) 8.3 % (1.0-10.0); NEUTROPHILS % (AUTO) 78.2 % (45.0-75.0); PLATELET COUNT 279 K/UL (150-450); RED BLOOD COUNT 2.66 M/UL (4.70-6.10); RED CELL DISTRIBUTION WIDTH 18.9 % (11.6-14.8)
--- NOTE | 2020-11-22 06:43 | NUR ---
NURSE HAND-OFF: Important Events on Shift: pain management, bm x 2 Patient Status: stable Diet: ccho (m) Pending Orders: none Pending Results/Labs:none Pending MD notification:none Latest Vital Signs: Temperature 97.1 , Pulse 96 , B/P 128 /77 , Respiratory Rate 16 , O2 SAT 100 , Bi-pap, O2 Flow Rate 3.0 . Vital Sign Comment: none Latest Childs Fall Score: 70 Fall Risk: High Risk Safety Measures: Call light Within Reach, Bed Alarm Zone 2, Side Rails Side Rails x3, Bed position Low and Locked. Fall Precautions: Yellow Socks Yellow Gown Door Sign Patient Fall Education Report given to Alda Schulz RN.
--- NOTE | 2020-11-22 07:00 | NUR ---
NURSE NOTES: received patient in bed aaoX4 in semi shelton position withon going O2at 3LPM via NC . No s/s of acute respiratory distress. on fall and aspiration precaution,Bed in lowest position and locked. Bed alarm on. Call light within reach and able to make needs known. Will continue to monitor. ROXI santillan
[2020-11-22 07:02] LABS: ALANINE AMINOTRANSFERASE 14 U/L (12-78); ALBUMIN 1.7 G/DL (3.4-5.0); ALBUMIN/GLOBULIN RATIO 0.3 (1.0-2.7); ALKALINE PHOSPHATASE 143 U/L (46-116); ANION GAP 3 mmol/L (5-15); ASPARTATE AMINO TRANSFERASE 43 U/L (15-37); BILIRUBIN,TOTAL 0.8 MG/DL (0.2-1.0); BLOOD UREA NITROGEN 18 mg/dL (7-18); CALCIUM 8.9 MG/DL (8.5-10.1); CARBON DIOXIDE 33 MMOL/L (21-32); CHLORIDE 98 MMOL/L (98-107); CREATININE 0.9 MG/DL (0.55-1.30); POTASSIUM 4.3 MMOL/L (3.5-5.1); SODIUM 134 MMOL/L (136-145)
[2020-11-22 07:18] LABS: AMMONIA 26 umol/L (11-32)
[2020-11-22 08:03] VITALS: BP 130/86
[2020-11-22] MEDS: Vitamin D 1000 units Tab ORAL SCH (08:05)
[2020-11-22] MEDS: Magnesium Oxide 400mg tab ORAL SCH ×3 (08:06→17:06)
[2020-11-22] MEDS: Spironolactone 50mg tab ORAL SCH (08:07)
[2020-11-22] MEDS: Lactulose 20gm/30ml UDC ORAL SCH ×2 (08:07→17:06)
[2020-11-22] MEDS: Allopurinol 100mg Tab ORAL SCH (08:07)
[2020-11-22] MEDS: CLOBETASOL 0.05% TOPIC SCH ×2 (08:13→17:07)
--- NOTE | 2020-11-22 08:56 | Infectious Diseases Prog Note ---
Assessment/Plan 60yo M with: Sepsis Afebrile Hypoxia on BiPAP >> NRB mask >> venti mask Leukocytosis to 14, improving Lymphopenia 11/01 BCx NTD COVID PCR neg CXR: Elevated right hemidiaphragm. Possible right basilar airspace disease and right effusion. CTH: No acute process EtOH abuse Cirrhosis, Fatty liver Massive ascites Elevated AST to 48 Acute hep panel neg 11/01 CT A/P: CIRRHOSIS WITH LARGE AMOUNT OF ASCITES. SPLENIC GRANULOMAS. SLUDGE IN THE GALLBLADDER. SMALL RIGHT PLEURAL EFFUSION WITH COMPRESSIVE ATELECTASIS RIGHT LOWER LOBE. ELEVATED RIGHT HEMIDIAPHRAGM. 11/02 Paracentesis, 10.2L removed 838 RBC, 142 WBC, 2%PMN, 94%[place]'s Cx - NTD DAVIDE vs CKD, Cr 2.4, improving HIV screen neg PMH: EtOH abuse, stopped drinking in Sep 2020 Fatty liver DM2 HTN Plan: Cont to monitor off abx Trend WBC, overall stable/improving off abx OK to d/c from ID standpoint 11/11 SP Zosyn #10 11/03 SP vanco #2 Monitor CBC/CMP Monitor temp curve, hemodynamics Monitor resp status D/w RN Thank you for this consult. [facility] will continue to follow. Subjective Allergies: Coded Allergies: No Known Allergies (Unverified , 10/02/16) AF NAD on 3L NC WBC stable at 11 Objective Last 24 Hour Vital Signs Date Time Temp Pulse Resp B/P (MAP) Pulse Ox O2 Delivery O2 Flow Rate FiO2 11/22/20 08:10 Nasal Cannula 3.0 11/22/20 08:03 97.8 105 19 130/86 (101) 100 11/22/20 04:00 97.1 96 16 128/77 (94) 100 11/22/20 00:00 97.2 102 18 129/79 (96) 95 11/21/20 21:00 Nasal Cannula 3.0 11/21/20 20:00 97.1 102 18 116/80 (92) 96 11/21/20 20:00 96 Nasal Cannula 3.0 32 11/21/20 16:00 97.1 98 20 120/77 (91) 96 11/21/20 14:16 97.6 11/21/20 12:00 97.6 107 20 113/75 (88) 98 11/21/20 09:00 Nasal Cannula 3.0 Height (Feet): 6 Height (Inches): 1.00 Weight (Pounds): 200 Gen: NAD HEENT: NCAT, EOMI Pulm: BL chest rise Abd: Distended, soft, +fluid wave Ext: No c/c/e Neuro: Awake, interactive Laboratory Tests Test 11/22/20 05:00 White Blood Count 11.0 K/UL (4.8-10.8) H Red Blood Count 2.66 M/UL (4.70-6.10) L Hemoglobin 9.1 G/DL (14.2-18.0) L Hematocrit 28.5 % (42.0-52.0) L Mean Corpuscular Volume 107 FL (80-99) H Mean Corpuscular Hemoglobin 34.4 PG (27.0-31.0) H Mean Corpuscular Hemoglobin Concent 32.1 G/DL (32.0-36.0) Red Cell Distribution Width 18.9 % (11.6-14.8) H Platelet Count 279 K/UL (150-450) Mean Platelet Volume 5.2 FL (6.5-10.1) L Neutrophils (%) (Auto) 78.2 % (45.0-75.0) H Lymphocytes (%) (Auto) 10.9 % (20.0-45.0) L Monocytes (%) (Auto) 8.3 % (1.0-10.0) Eosinophils (%) (Auto) 1.2 % (0.0-3.0) Basophils (%) (Auto) 1.4 % (0.0-2.0) Sodium Level 134 MMOL/L (136-145) L Potassium Level 4.3 MMOL/L (3.5-5.1) Chloride Level 98 MMOL/L (98-107) Carbon Dioxide Level 33 MMOL/L (21-32) H Anion Gap 3 mmol/L (5-15) L Blood Urea Nitrogen 18 mg/dL (7-18) Creatinine 0.9 MG/DL (0.55-1.30) Estimat Glomerular Filtration Rate > 60 mL/min (>60) Glucose Level 102 MG/DL (74-106) Calcium Level 8.9 MG/DL (8.5-10.1) Total Bilirubin 0.8 MG/DL (0.2-1.0) Aspartate Amino Transf (AST/SGOT) 43 U/L (15-37) H Alanine Aminotransferase (ALT/SGPT) 14 U/L (12-78) Alkaline Phosphatase 143 U/L (46-116) H Ammonia 26 umol/L (11-32) Total Protein 7.2 G/DL (6.4-8.2) Albumin 1.7 G/DL (3.4-5.0) L Globulin 5.5 g/dL Albumin/Globulin Ratio 0.3 (1.0-2.7) L Current Medications Medications (Trade) Dose Ordered Sig/Kylah Route PRN Reason Start Time Stop Time Status Last Admin Dose Admin Acetaminophen (Tylenol) 500 mg Q6H PRN ORAL Mild Pain 11/02/20 08:30 12/02/20 08:29 11/13/20 08:33 Acetaminophen (Tylenol) 500 mg Q6H PRN ORAL fever > 100.2 11/02/20 08:45 12/02/20 08:44 Acetaminophen/ Hydrocodone Bitart (Hamer 5/325) 1 tab Q6H PRN ORAL Severe Pain (Pain Scale 7-10) 11/18/20 13:00 11/25/20 12:59 11/22/20 07:38 Allopurinol (Zyloprim) 200 mg DAILY ORAL 11/04/20 15:00 12/04/20 14:59 11/22/20 08:07 Carbamide Peroxide (Debrox) 3 drop BEDTIME BOTH EARS 11/20/20 21:00 11/24/20 23:00 11/21/20 21:00 Clobetasol Propionate (Temovate) 1 applic TWICE A DAY TOPIC 11/21/20 13:30 02/19/21 13:29 11/22/20 08:13 Dextrose (Dextrose 50%) 25 ml Q30M PRN IV Hypoglycemia 11/01/20 18:30 01/30/21 18:29 Dextrose (Dextrose 50%) 50 ml Q30M PRN IV Hypoglycemia 11/01/20 18:30 01/30/21 18:29 Folic Acid (Folate) 3 mg DAILY ORAL 11/03/20 13:15 12/03/20 13:14 11/22/20 08:06 Furosemide (Lasix) 20 mg DAILY IV 11/13/20 10:00 12/13/20 09:59 11/22/20 08:07 Insulin Aspart (NovoLOG) BEFORE MEALS AND HS SUBQ 11/01/20 21:00 01/30/21 20:59 11/21/20 05:41 Lactulose (Cephulac) 20 gm BID ORAL 11/20/20 09:00 12/20/20 08:59 11/22/20 08:07 Magnesium Oxide (Mag-Ox 400mg) 400 mg THREE TIMES A DAY ORAL 11/13/20 13:00 12/13/20 12:59 11/22/20 08:06 Midodrine (Pro-Amatine) 10 mg Q8HR ORAL 11/02/20 14:00 01/31/21 13:59 11/21/20 13:46 Pantoprazole (Protonix) 40 mg DAILY ORAL 11/14/20 09:00 12/14/20 08:59 11/22/20 08:05 Spironolactone (Aldactone) 100 mg DAILY ORAL 11/16/20 09:00 12/16/20 08:59 11/22/20 08:07 Vitamin D (Vitamin D) 5,000 unit DAILY ORAL 11/16/20 09:00 12/16/20 08:59 11/22/20 08:05 Viviana Casper M.D. Nov 22, 2020 08:56
--- NOTE | 2020-11-22 10:31 | Surgery Progress Note ---
Surgery Progress Note Subjective Symptoms: improved, tolerating diet, passing flatus Objective Last 24 Hour Vital Signs Date Time Temp Pulse Resp B/P (MAP) Pulse Ox O2 Delivery O2 Flow Rate FiO2 11/22/20 08:10 Nasal Cannula 3.0 11/22/20 08:03 97.8 105 19 130/86 (101) 100 11/22/20 04:00 97.1 96 16 128/77 (94) 100 11/22/20 00:00 97.2 102 18 129/79 (96) 95 11/21/20 21:00 Nasal Cannula 3.0 11/21/20 20:00 97.1 102 18 116/80 (92) 96 11/21/20 20:00 96 Nasal Cannula 3.0 32 11/21/20 16:00 97.1 98 20 120/77 (91) 96 11/21/20 14:16 97.6 11/21/20 12:00 97.6 107 20 113/75 (88) 98 I&O Intake and Output 11/21/20 11/22/20 19:00 07:00 Intake Total 580 ml Output Total 650 ml 300 ml Balance -70 ml -300 ml Intake Oral 480 ml IV Total 100 ml Output Urine Total 650 ml 300 ml # Voids 1 # Bowel Movements 1 2 Dressing: dry Wound: clean Cardiovascular: RSR Respiratory: clear Abdomen: soft, flat, non-tender, present bowel sounds, non-distended Extremities: no edema, no tenderness, no cyanosis Laboratory Tests Test 11/21/20 11:15 11/21/20 16:45 11/21/20 22:04 11/22/20 05:00 POC Whole Blood Glucose 136 MG/DL (74-106) H 121 MG/DL (74-106) H 105 MG/DL (74-106) White Blood Count 11.0 K/UL (4.8-10.8) H Red Blood Count 2.66 M/UL (4.70-6.10) L Hemoglobin 9.1 G/DL (14.2-18.0) L Hematocrit 28.5 % (42.0-52.0) L Mean Corpuscular Volume 107 FL (80-99) H Mean Corpuscular Hemoglobin 34.4 PG (27.0-31.0) H Mean Corpuscular Hemoglobin Concent 32.1 G/DL (32.0-36.0) Red Cell Distribution Width 18.9 % (11.6-14.8) H Platelet Count 279 K/UL (150-450) Mean Platelet Volume 5.2 FL (6.5-10.1) L Neutrophils (%) (Auto) 78.2 % (45.0-75.0) H Lymphocytes (%) (Auto) 10.9 % (20.0-45.0) L Monocytes (%) (Auto) 8.3 % (1.0-10.0) Eosinophils (%) (Auto) 1.2 % (0.0-3.0) Basophils (%) (Auto) 1.4 % (0.0-2.0) Sodium Level 134 MMOL/L (136-145) L Potassium Level 4.3 MMOL/L (3.5-5.1) Chloride Level 98 MMOL/L (98-107) Carbon Dioxide Level 33 MMOL/L (21-32) H Anion Gap 3 mmol/L (5-15) L Blood Urea Nitrogen 18 mg/dL (7-18) Creatinine 0.9 MG/DL (0.55-1.30) Estimat Glomerular Filtration Rate > 60 mL/min (>60) Glucose Level 102 MG/DL (74-106) Calcium Level 8.9 MG/DL (8.5-10.1) Total Bilirubin 0.8 MG/DL (0.2-1.0) Aspartate Amino Transf (AST/SGOT) 43 U/L (15-37) H Alanine Aminotransferase (ALT/SGPT) 14 U/L (12-78) Alkaline Phosphatase 143 U/L (46-116) H Ammonia 26 umol/L (11-32) Total Protein 7.2 G/DL (6.4-8.2) Albumin 1.7 G/DL (3.4-5.0) L Globulin 5.5 g/dL Albumin/Globulin Ratio 0.3 (1.0-2.7) L Plan Problems: (1) Deep tissue injury Assessment & Plan: Pt presented on admission with DTPI Thoracic Spine(L)1.8cm x (W)1cm. Base of Pressure Injury is purpuric with surrounding non-blanchable erythema. Pt complained of tenderness at site. Non-Blanchable erythema without induration noted to Sacrum,R and L Gluteal cheeks including Bilat Ischial tuberosities. Rocker bottom foot noted to Both R and L feet. Both heels are callused,dry and easily blanchable. Tx.Plan: Apply Cavilon Skin Barrier To Thoracic DTPI. Cover with Optifoam drsg. Change every 3 days and prn. Apply Moisture Barrier Paste to Sacrum. Cover with Optifoam drsg. Change every 3 days and prn. Apply Cavilon Skin Barrier to R and L gluteal cheeks and Bilat Ischial tuberosities with each Incontinence care. Reposition at least every 2Hours or as tolerated. Off-load heels with pillow. (2) Hepatic encephalopathy (3) Hypokalemia (4) Ascites (5) Severe sepsis (6) Cirrhosis Assessment & Plan: There is compressive atelectasis right lower lobe. Small right effusion noted. Right hemidiaphragm is elevated. There is a large amount of ascites. Slight nodularity of the hepatic contour noted suggestive of underlying cirrhotic changes. Spleen contains some scattered granulomas. Gallbladder is isodense to liver likely containing tumefactive sludge. The pancreas is unremarkable. Adrenals are normal in morphology. The kidneys are normal in size, shape and axis. Small bowel loops are nondistended. The colon is also nondistended with average amount of stool. The appendix is not visualized. There is no free air. No pathologic adenopathy demonstrated. Urinary bladder appears unremarkable. Degenerative changes of the lumbar spine noted. IMPRESSION: CIRRHOSIS WITH LARGE AMOUNT OF ASCITES. SPLENIC GRANULOMAS. SLUDGE IN THE GALLBLADDER. SMALL RIGHT PLEURAL EFFUSION WITH COMPRESSIVE ATELECTASIS RIGHT LOWER LOBE. ELEVATED RIGHT HEMIDIAPHRAGM. (7) AMS (altered mental status) (8) Electrolyte imbalance (9) Renal failure (ARF), acute on chronic (10) Anemia (11) HTN (hypertension) (12) DMII (diabetes mellitus, type 2) Theodore Alves Nov 22, 2020 10:31
--- NOTE | 2020-11-22 10:40 | NUR ---
PT EVALUATION NOTE Patient seen for initial evaluation and treatment initiated. Patient presents with weakness all four extremities, abdominal pain and decreased balance which impairs patient's ability to perform mobility skills safely. Patient requires mod assist for bed mobility and min assist to maintain sitting at the EOB. Patient unable to perform OOB activities at this time. Patient will benefit from skilled inpatient PT intervention to increase strength and postural stability for improved level of functional mobility, safety and activity tolerance. Recommend discharge to SNF for continued rehab once medically cleared by MD. Addendum: 11/22/20 at 1159 by ASTRID COSTELLO PT Amended: Links added.
[2020-11-22 12:00] VITALS: BP 105/71
--- NOTE | 2020-11-22 12:18 | General Progress Note ---
Subjective ROS Limited/Unobtainable: No Allergies: Coded Allergies: No Known Allergies (Unverified , 10/02/16) Objective Last 24 Hour Vital Signs Date Time Temp Pulse Resp B/P (MAP) Pulse Ox O2 Delivery O2 Flow Rate FiO2 11/22/20 12:00 97.1 100 19 105/71 (82) 100 11/22/20 08:10 Nasal Cannula 3.0 11/22/20 08:03 97.8 105 19 130/86 (101) 100 11/22/20 04:00 97.1 96 16 128/77 (94) 100 11/22/20 00:00 97.2 102 18 129/79 (96) 95 11/21/20 21:00 Nasal Cannula 3.0 11/21/20 20:00 97.1 102 18 116/80 (92) 96 11/21/20 20:00 96 Nasal Cannula 3.0 32 11/21/20 16:00 97.1 98 20 120/77 (91) 96 11/21/20 14:16 97.6 Intake and Output 11/21/20 11/22/20 19:00 07:00 Intake Total 580 ml Output Total 650 ml 300 ml Balance -70 ml -300 ml Intake Oral 480 ml IV Total 100 ml Output Urine Total 650 ml 300 ml # Voids 1 # Bowel Movements 1 2 Laboratory Tests 11/21/20 16:45: POC Whole Blood Glucose 121H 11/21/20 22:04: POC Whole Blood Glucose 105 11/22/20 05:00: White Blood Count 11.0H, Red Blood Count 2.66L, Hemoglobin 9.1L, Hematocrit 28.5L, Mean Corpuscular Volume 107H, Mean Corpuscular Hemoglobin 34.4H, Mean Corpuscular Hemoglobin Concent 32.1, Red Cell Distribution Width 18.9H, Platelet Count 279, Mean Platelet Volume 5.2L, Neutrophils (%) (Auto) 78.2H, Lymphocytes (%) (Auto) 10.9L, Monocytes (%) (Auto) 8.3, Eosinophils (%) (Auto) 1.2, Basophil s (%) (Auto) 1.4, Sodium Level 134L, Potassium Level 4.3, Chloride Level 98, Carbon Dioxide Level 33H, Anion Gap 3L, Blood Urea Nitrogen 18, Creatinine 0.9, Estimat Glomerular Filtration Rate > 60, Glucose Level 102, Calcium Level 8.9, Total Bilirubin 0.8, Aspartate Amino Transf (AST/SGOT) 43H, Alanine Aminotransferase (ALT/SGPT) 14, Alkaline Phosphatase 143H, Ammonia 26, Total Protein 7.2, Albumin 1.7L, Globulin 5.5, Albumin/Globulin Ratio 0.3L 11/22/20 11:36: POC Whole Blood Glucose [Pending] Height (Feet): 6 Height (Inches): 1.00 Weight (Pounds): 200 General Appearance: no apparent distress EENT: normal ENT inspection Neck: normal alignment Cardiovascular: normal rate Respiratory/Chest: decreased breath sounds Abdomen: normal bowel sounds, non tender, soft Extremities: non-tender Assessment/Plan Problem List: (1) Cirrhosis ICD Codes: K74.60 - Unspecified cirrhosis of liver SNOMED: 00511053 (2) Hepatic encephalopathy ICD Codes: K72.90 - Hepatic failure, unspecified without coma; R65.20 - Severe sepsis without septic shock SNOMED: 78306196 (3) Hypokalemia ICD Codes: E87.6 - Hypokalemia; R65.20 - Severe sepsis without septic shock SNOMED: 69839097 (4) Ascites ICD Codes: R18.8 - Other ascites SNOMED: 798756297 (5) Severe sepsis ICD Codes: A41.9 - Sepsis, unspecified organism; R65.20 - Severe sepsis without septic shock SNOMED: 72916499 (6) AMS (altered mental status) ICD Codes: R41.82 - Altered mental status, unspecified SNOMED: 515123401 Assessment/Plan: Assessment/Plan Problem List: (1) Cirrhosis ICD Codes: K74.60 - Unspecified cirrhosis of liver SNOMED: 81859166 (2) Hepatic encephalopathy ICD Codes: K72.90 - Hepatic failure, unspecified without coma; R65.20 - Severe sepsis without septic shock SNOMED: 12271289 (3) Hypokalemia ICD Codes: E87.6 - Hypokalemia; R65.20 - Severe sepsis without septic shock SNOMED: 07023458 (4) Ascites ICD Codes: R18.8 - Other ascites SNOMED: 470243854 (5) Severe sepsis ICD Codes: A41.9 - Sepsis, unspecified organism; R65.20 - Severe sepsis without septic shock SNOMED: 06786132 (6) AMS (altered mental status) ICD Codes: R41.82 - Altered mental status, unspecified SNOMED: 551515090 Assessment/Plan: lactulose PPI f/u ammonia level fu hepatitis panel>>> neg s/p repeat paracentesis x3 lasix aldactone repeat labs Mejia Encarnacion MD Nov 22, 2020 12:18
--- NOTE | 2020-11-22 12:48 | Nephrology Progress Note ---
Assessment/Plan Problem List: (1) Renal failure (ARF), acute on chronic (2) Electrolyte imbalance (3) Hypokalemia (4) Cirrhosis (5) DMII (diabetes mellitus, type 2) (6) Anemia (7) HTN (hypertension) Assessment Renal failure most likely acute on chronic Electrolyte imbalances, hypokalemia Sepsis Hepatic encephalopathy, ascites, fatty liver Anemia History of EtOH abuse, history of tobacco abuse, history of drug abuse Diabetes mellitus type 2 Hypertension Lymphopenia, leukocytosis, hypoxia Plan November 22: Labs reviewed. Electrolytes reasonably well-maintained. Continue per current treatment plan. November 21: Labs reviewed. Abnormal electrolytes addressed. Neutra-Phos discontinued. Continue per current management. November 20: Labs reviewed. Renal parameters stable. Massive ascites and GI discomfort persists. Medication list reviewed. November 19: Labs reviewed. Serum sodium 133. Normal saline 500 cc bolus given. Continue per consultants. November 18: Labs reviewed. Abnormal electrolytes addressed. Continue per consultants November 17: Labs reviewed. Renal parameters stable. Medication list reviewed. On Lasix and Aldactone. We will continue to monitor blood chemistries and electrolytes. November 16: Labs reviewed. Electrolytes within normal limit now. Continue her current management. November 15: Labs reviewed. Low magnesium addressed. Continue per current management. November 14: Labs reviewed. Renal parameters are stable continue per current management. Vitamin D supplement given. November 13: Labs reviewed. Normal renal parameters. Abnormal electrolytes noted and addressed. Vitamin D level results still pending November 12: Labs reviewed. Serum creatinine now within normal limits. Much improved from renal standpoint of view. November 11: Labs reviewed. Serum creatinine 1.6. Stable from renal standpoint reviewed. November 10: Labs reviewed. Serum creatinine lowered to 1.9. Continue to monitor renal parameters. Magnesium supplement ordered. November 09: No CHEM panel drawn today. Will DC Hernandez due to pain in the urethra. We will continue to monitor renal parameters. Continue per consultants. November 08: Labs reviewed. Serum creatinine 2.3 unchanged. Electrolytes within normal limit. Continue per consultants. November 07: Labs reviewed. Serum creatinine down to 2.3. Continue to monitor electrolytes. Low magnesium addressed. November 06: Labs reviewed. Serum creatinine 2.5 unchanged. Continue per consul tants. November 05: Labs reviewed. Serum creatinine plateauing. Status quo. Electrolyte acceptable. Now on oxygen by cannula. Continue per consultants. November 04 labs reviewed. Patient full code. On Venturi mask. Low potassium addressed. Serum creatinine rising. Continue to monitor renal parameters. Allopurinol initiated November 03: Labs reviewed. Medication list reviewed. Abnormal electrolyte addressed. Continue monitor renal parameters. Continue per consultants. Previously: Trial of 3% saline and albumin bolus Potassium supplement Monitor renal parameters, ammonia, electrolytes ordered Subjective ROS Limited/Unobtainable: No Constitutional: Reports: malaise, weakness Objective Objective Last 24 Hour Vital Signs Date Time Temp Pulse Resp B/P (MAP) Pulse Ox O2 Delivery O2 Flow Rate FiO2 11/22/20 12:00 97.1 100 19 105/71 (82) 100 11/22/20 08:10 Nasal Cannula 3.0 11/22/20 08:03 97.8 105 19 130/86 (101) 100 11/22/20 04:00 97.1 96 16 128/77 (94) 100 11/22/20 00:00 97.2 102 18 129/79 (96) 95 11/21/20 21:00 Nasal Cannula 3.0 11/21/20 20:00 97.1 102 18 116/80 (92) 96 11/21/20 20:00 96 Nasal Cannula 3.0 32 11/21/20 16:00 97.1 98 20 120/77 (91) 96 11/21/20 14:16 97.6 Intake and Output 11/21/20 11/22/20 19:00 07:00 Intake Total 580 ml Output Total 650 ml 300 ml Balance -70 ml -300 ml Intake Oral 480 ml IV Total 100 ml Output Urine Total 650 ml 300 ml # Voids 1 # Bowel Movements 1 2 Current Medications Medications (Trade) Dose Ordered Sig/Kylah Route PRN Reason Start Time Stop Time Status Last Admin Dose Admin Acetaminophen (Tylenol) 500 mg Q6H PRN ORAL Mild Pain 11/02/20 08:30 12/02/20 08:29 11/13/20 08:33 Acetaminophen (Tylenol) 500 mg Q6H PRN ORAL fever > 100.2 11/02/20 08:45 12/02/20 08:44 Acetaminophen/ Hydrocodone Bitart ([place] 5/325) 1 tab Q6H PRN ORAL Severe Pain (Pain Scale 7-10) 11/18/20 13:00 11/25/20 12:59 11/22/20 07:38 Allopurinol (Zyloprim) 200 mg DAILY ORAL 11/04/20 15:00 12/04/20 14:59 11/22/20 08:07 Carbamide Peroxide (Debrox) 3 drop BEDTIME BOTH EARS 11/20/20 21:00 11/24/20 23:00 11/21/20 21:00 Clobetasol Propionate (Temovate) 1 applic TWICE A DAY TOPIC 11/21/20 13:30 02/19/21 13:29 11/22/20 08:13 Dextrose (Dextrose 50%) 25 ml Q30M PRN IV Hypoglycemia 11/01/20 18:30 01/30/21 18:29 Dextrose (Dextrose 50%) 50 ml Q30M PRN IV Hypoglycemia 11/01/20 18:30 01/30/21 18:29 Folic Acid (Folate) 3 mg DAILY ORAL 11/03/20 13:15 12/03/20 13:14 11/22/20 08:06 Furosemide (Lasix) 20 mg DAILY IV 11/13/20 10:00 12/13/20 09:59 11/22/20 08:07 Insulin Aspart (NovoLOG) BEFORE MEALS AND HS SUBQ 11/01/20 21:00 01/30/21 20:59 11/21/20 05:41 Lactulose (Cephulac) 20 gm BID ORAL 11/20/20 09:00 12/20/20 08:59 11/22/20 08:07 Magnesium Oxide (Mag-Ox 400mg) 400 mg THREE TIMES A DAY ORAL 11/13/20 13:00 12/13/20 12:59 11/22/20 08:06 Midodrine (Pro-Amatine) 10 mg Q8HR ORAL 11/02/20 14:00 01/31/21 13:59 11/21/20 13:46 Pantoprazole (Protonix) 40 mg DAILY ORAL 11/14/20 09:00 12/14/20 08:59 11/22/20 08:05 Spironolactone (Aldactone) 100 mg DAILY ORAL 11/16/20 09:00 12/16/20 08:59 11/22/20 08:07 Vitamin D (Vitamin D) 5,000 unit DAILY ORAL 11/16/20 09:00 12/16/20 08:59 11/22/20 08:05 Laboratory Tests 11/21/20 16:45: POC Whole Blood Glucose 121H 11/21/20 22:04: POC Whole Blood Glucose 105 11/22/20 05:00: White Blood Count 11.0H, Red Blood Count 2.66L, Hemoglobin 9.1L, Hematocrit 28.5L, Mean Corpuscular Volume 107H, Mean Corpuscular Hemoglobin 34.4H, Mean Corpuscular Hemoglobin Concent 32.1, Red Cell Distribution Width 18.9H, Platelet Count 279, Mean Platelet Volume 5.2L, Neutrophils (%) (Auto) 78.2H, Lymphocytes (%) (Auto) 10.9L, Monocytes (%) (Auto) 8.3, Eosinophils (%) (Auto) 1.2, Basophils (%) (Auto) 1.4, Sodium Level 134L, Potassium Level 4.3, Chloride Level 98, Carbon Dioxide Level 33H, Anion Gap 3L, Blood Urea Nitrogen 18, Creatinine 0.9, Estimat Glomerular Filtration Rate > 60, Glucose Level 102, Calcium Level 8.9, Total Bilirubin 0.8, Aspartate Amino Transf (AST/SGOT) 43H, Alanine Aminotransferase (ALT/SGPT) 14, Alkaline Phosphatase 143H, Ammonia 26, Total Protein 7.2, Albumin 1.7L, Globulin 5.5, Albumin/Globulin Ratio 0.3L 11/22/20 11:36: POC Whole Blood Glucose [Pending] Height (Feet): 6 Height (Inches): 1.00 Weight (Pounds): 200 General Appearance: mild distress Cardiovascular: tachycardia Respiratory/Chest: decreased breath sounds Abdomen: distended Kalin Pozo MD Nov 22, 2020 12:48
--- NOTE | 2020-11-22 13:30 | NUR ---
CASE MANAGEMENT:REVIEW 11/22/20 SI: SEPSIS. HYPOXIA. ETOH ABUSE. ASCITES S/P PARACENTESIS~ 10.2 L REMOVED 97.1 100 19 105/71 100% 3L/NC WBC+11.0 H/H-9.1/28.5 CO2+33 IS: LACTULOSE PO BID PROTONIX PO QD PHOSPHA PO TID MAG OXIDE PO TID ALDACTONE PO QD IV LASIX QD ALLOPURINOL PO QD FOLATE PO QD MIDODRINE PO Q8HRS HEPARIN SQ Q12 : MED/SURG STATUS DCP: FROM HOME.....[facility] HOME? PLAN: WEANING OXYGEN
--- NOTE | 2020-11-22 14:30 | Internal Med Progress Note ---
Subjective Physician Name Ramon Coombs Attending Physician Ramon Coombs MD Current Medications Medications (Trade) Dose Ordered Sig/Kylah Route PRN Reason Start Time Stop Time Status Last Admin Dose Admin Acetaminophen (Tylenol) 500 mg Q6H PRN ORAL Mild Pain 11/02/20 08:30 12/02/20 08:29 11/13/20 08:33 Acetaminophen (Tylenol) 500 mg Q6H PRN ORAL fever > 100.2 11/02/20 08:45 12/02/20 08:44 Acetaminophen/ Hydrocodone Bitart ([place] 5/325) 1 tab Q6H PRN ORAL Severe Pain (Pain Scale 7-10) 11/18/20 13:00 11/25/20 12:59 11/22/20 13:49 Allopurinol (Zyloprim) 200 mg DAILY ORAL 11/04/20 15:00 12/04/20 14:59 11/22/20 08:07 Carbamide Peroxide (Debrox) 3 drop BEDTIME BOTH EARS 11/20/20 21:00 11/24/20 23:00 11/21/20 21:00 Clobetasol Propionate (Temovate) 1 applic TWICE A DAY TOPIC 11/21/20 13:30 02/19/21 13:29 11/22/20 08:13 Dextrose (Dextrose 50%) 25 ml Q30M PRN IV Hypoglycemia 11/01/20 18:30 01/30/21 18:29 Dextrose (Dextrose 50%) 50 ml Q30M PRN IV Hypoglycemia 11/01/20 18:30 01/30/21 18:29 Folic Acid (Folate) 3 mg DAILY ORAL 11/03/20 13:15 12/03/20 13:14 11/22/20 08:06 Furosemide (Lasix) 20 mg DAILY IV 11/13/20 10:00 12/13/20 09:59 11/22/20 08:07 Insulin Aspart (NovoLOG) BEFORE MEALS AND HS SUBQ 11/01/20 21:00 01/30/21 20:59 11/21/20 05:41 Lactulose (Cephulac) 20 gm BID ORAL 11/20/20 09:00 12/20/20 08:59 11/22/20 08:07 Magnesium Oxide (Mag-Ox 400mg) 400 mg THREE TIMES A DAY ORAL 11/13/20 13:00 12/13/20 12:59 11/22/20 13:24 Midodrine (Pro-Amatine) 10 mg Q8HR ORAL 11/02/20 14:00 01/31/21 13:59 11/22/20 13:25 Pantoprazole (Protonix) 40 mg DAILY ORAL 11/14/20 09:00 12/14/20 08:59 11/22/20 08:05 Spironolactone (Aldactone) 100 mg DAILY ORAL 11/16/20 09:00 12/16/20 08:59 11/22/20 08:07 Vitamin D (Vitamin D) 5,000 unit DAILY ORAL 11/16/20 09:00 12/16/20 08:59 11/22/20 08:05 Allergies: Coded Allergies: No Known Allergies (Unverified , 10/02/16) Subjective awake, alert, responsive, NAD, no acute distress.WBC: 11.0. Objective Last Vital Signs Date Time Temp Pulse Resp B/P (MAP) Pulse Ox O2 Delivery O2 Flow Rate FiO2 11/22/20 12:00 97.1 100 19 105/71 (82) 100 11/22/20 08:10 Nasal Cannula 3.0 11/21/20 20:00 32 Laboratory Tests Test 11/21/20 16:45 11/21/20 22:04 11/22/20 05:00 11/22/20 11:36 POC Whole Blood Glucose 121 MG/DL (74-106) H 105 MG/DL (74-106) Pending White Blood Count 11.0 K/UL (4.8-10.8) H Red Blood Count 2.66 M/UL (4.70-6.10) L Hemoglobin 9.1 G/DL (14.2-18.0) L Hematocrit 28.5 % (42.0-52.0) L Mean Corpuscular Volume 107 FL (80-99) H Mean Corpuscular Hemoglobin 34.4 PG (27.0-31.0) H Mean Corpuscular Hemoglobin Concent 32.1 G/DL (32.0-36.0) Red Cell Distribution Width 18.9 % (11.6-14.8) H Platelet Count 279 K/UL (150-450) Mean Platelet Volume 5.2 FL (6.5-10.1) L Neutrophils (%) (Auto) 78.2 % (45.0-75.0) H Lymphocytes (%) (Auto) 10.9 % (20.0-45.0) L Monocytes (%) (Auto) 8.3 % (1.0-10.0) Eosinophils (%) (Auto) 1.2 % (0.0-3.0) Basophils (%) (Auto) 1.4 % (0.0-2.0) Sodium Level 134 MMOL/L (136-145) L Potassium Level 4.3 MMOL/L (3.5-5.1) Chloride Level 98 MMOL/L (98-107) Carbon Dioxide Level 33 MMOL/L (21-32) H Anion Gap 3 mmol/L (5-15) L Blood Urea Nitrogen 18 mg/dL (7-18) Creatinine 0.9 MG/DL (0.55-1.30) Estimat Glomerular Filtration Rate > 60 mL/min (>60) Glucose Level 102 MG/DL (74-106) Calcium Level 8.9 MG/DL (8.5-10.1) Total Bilirubin 0.8 MG/DL (0.2-1.0) Aspartate Amino Transf (AST/SGOT) 43 U/L (15-37) H Alanine Aminotransferase (ALT/SGPT) 14 U/L (12-78) Alkaline Phosphatase 143 U/L (46-116) H Ammonia 26 umol/L (11-32) Total Protein 7.2 G/DL (6.4-8.2) Albumin 1.7 G/DL (3.4-5.0) L Globulin 5.5 g/dL Albumin/Globulin Ratio 0.3 (1.0-2.7) L Intake and Output 11/21/20 11/22/20 19:00 07:00 Intake Total 580 ml Output Total 650 ml 300 ml Balance -70 ml -300 ml Intake Oral 480 ml IV Total 100 ml Output Urine Total 650 ml 300 ml # Voids 1 # Bowel Movements 1 2 Objective General: No acute distress, awake, alert, Responsive. HEENT: NCAT, sclera anicteric, PERRL, EOMI. Neck: Supple, no significant jugular venous distention, Lungs: Fair inspiratory effort, , no Wheeze or Rales. Heart: Regular rate and rhythm, normal S1/S2, no murmurs Abdomen: soft, nontender, +distended. positive fluid shift, bowel sound present. / Rectal: Refused and deferred. Extremities: No Cyanosis , clubbing or edema. Neuro: A&O x 3, Able to move all extremities Skin: warm, no rash Assessment/Plan Assessment/Plan Sepsis Acute Hypoxia on BiPAP >> resolved alcohol abuse Liver Cirrhosis, Fatty liver Massive ascites DAVIDE vs CKD DM2 HTN Plan: Abx: Off Consider repeat paracentesis soon, COVID PCR negative F/u BCx monitor laboratory PT Mobility DC planning to [facility] Ramon Coombs MD Nov 22, 2020 14:30
[2020-11-22 16:00] VITALS: BP 128/82
--- NOTE | 2020-11-22 19:17 | NUR ---
NURSE HAND-OFF: Important Events on Shift:[See PT notes recommendation] Patient Status: [stable] Diet: [Diabetic diet] Pending Orders: [none] Pending Results/Labs:[none] Pending MD notification:[none] Latest Vital Signs: Temperature 97.7 , Pulse 101 , B/P 128 /82 , Respiratory Rate 19 , O2 SAT 98 , O2 Flow Rate 2.0 .room air 90-91%$ Vital Sign Comment: [stable] Latest Childs Fall Score: 70 Fall Risk: High Risk Safety Measures: Call light Within Reach, Bed Alarm Zone 2, Side Rails Side Rails x3, Bed position Low and Locked. Fall Precautions: Yellow Socks Yellow Gown Door Sign Patient Fall Education Report given to [ROXI Arevalo].
--- NOTE | 2020-11-22 19:30 | NUR ---
NURSE NOTES: Patient awake in bed, alert and oriented x4, with complaint of generalized pain. Will medicate as ordered. Call light in reach. Bed in lowest, lock engaged and alarm on. Will continue plan of care.
[2020-11-22 20:00] VITALS: BP 132/80
[2020-11-22] MEDS: Carbamide Peroxide 6.5% Ot Sol 15ML BOTH EARS SCH (20:31)
[2020-11-23] VITALS: BP 118/76
[2020-11-23 04:00] VITALS: BP 113/77
[2020-11-23] MEDS: Midodrine 10mg tab ORAL SCH ×3 (05:16→21:14)
[2020-11-23] MEDS: HYDROcodone/Acetamin 5/325 tab ORAL PRN (05:28)
[2020-11-23] MEDS: NovoLOG Insulin Flexpen SUBQ SCH ×4 (05:58→20:17)
--- NOTE | 2020-11-23 07:39 | NUR ---
NURSE HAND-OFF: Important Events on Shift: needs attended Patient Status: confused and forgetful Diet: Pending Orders: Pending Results/Labs: Pending MD notification: Latest Vital Signs: Temperature 97.7 , Pulse 94 , B/P 113 /77 , Respiratory Rate 24 , O2 SAT 95 , Bi-pap, O2 Flow Rate 3.0 . Vital Sign Comment: Latest Childs Fall Score: 70 Fall Risk: High Risk Safety Measures: Call light Within Reach, Bed Alarm Zone 2, Side Rails Side Rails x3, Bed position Low and Locked. Fall Precautions: Yellow Socks Yellow Gown Door Sign Patient Fall Education Report given to Herminia.
--- NOTE | 2020-11-23 07:40 | NUR ---
NURSE NOTES: RECEIVED PATIENT A/A/OX4. IN BED WITH ELEVATED HOB. ON O2 2L VIA NC. ABLE TO VERBALIZE NEEDS. ABDOMEN SOFT AND DISTENDED. NO C/O PAIN OR DISCOMFORT NOTED. NO ACUTE CARDIO-RESP DISTRESS NOTED. TOLERATED FOOD INTAKE WELL. PIV ACCESS PATENT AND INTACT. KEPT BED IN THE LOWEST POSITION. SIDERAILS ARE UPX3. BED ALARM ENGAGED AND LOCKED. WILL CONT TO MONITOR
[2020-11-23 08:00] VITALS: BP 110/74
[2020-11-23] MEDS: Magnesium Oxide 400mg tab ORAL SCH ×3 (08:22→17:17)
[2020-11-23] MEDS: Lactulose 20gm/30ml UDC ORAL SCH ×2 (08:22→17:17)
[2020-11-23] MEDS: Vitamin D 1000 units Tab ORAL SCH (08:22)
[2020-11-23] MEDS: Allopurinol 100mg Tab ORAL SCH (08:23)
[2020-11-23] MEDS: Spironolactone 50mg tab ORAL SCH ×2 (08:23→08:57)
[2020-11-23] MEDS: CLOBETASOL 0.05% TOPIC SCH ×2 (08:24→17:17)
--- NOTE | 2020-11-23 10:06 | Infectious Diseases Prog Note ---
Assessment/Plan 60yo M with: Sepsis Afebrile Hypoxia on BiPAP >> NRB mask >> venti mask Leukocytosis to 14, improving Lymphopenia 11/01 BCx NTD COVID PCR neg CXR: Elevated right hemidiaphragm. Possible right basilar airspace disease and right effusion. CTH: No acute process EtOH abuse Cirrhosis, Fatty liver Massive ascites Elevated AST to 48 Acute hep panel neg 11/01 CT A/P: CIRRHOSIS WITH LARGE AMOUNT OF ASCITES. SPLENIC GRANULOMAS. SLUDGE IN THE GALLBLADDER. SMALL RIGHT PLEURAL EFFUSION WITH COMPRESSIVE ATELECTASIS RIGHT LOWER LOBE. ELEVATED RIGHT HEMIDIAPHRAGM. 11/02 Paracentesis, 10.2L removed 838 RBC, 142 WBC, 2%PMN, 94%[place] Cx - NTD DAVIDE vs CKD, Cr 2.4, improving HIV screen neg PMH: EtOH abuse, stopped drinking in Sep 2020 Fatty liver DM2 HTN Plan: Cont to monitor off abx Trend WBC, overall stable/improving off abx OK to d/c from ID standpoint 11/11 SP Zosyn #10 11/03 SP vanco #2 Monitor CBC/CMP Monitor temp curve, hemodynamics Monitor resp status D/w RN Thank you for this consult. [facility] will continue to follow. Subjective Allergies: Coded Allergies: No Known Allergies (Unverified , 10/02/16) AF NAD on 3L NC Worked with PT, doing well Says he might get another para, possibly today vs tomorrow Objective Last 24 Hour Vital Signs Date Time Temp Pulse Resp B/P (MAP) Pulse Ox O2 Delivery O2 Flow Rate FiO2 11/23/20 08:00 97.1 100 19 110/74 (86) 95 100 11/23/20 04:00 97.7 94 24 113/77 (89) 95 11/23/20 00:00 97.9 88 20 118/76 (90) 99 11/22/20 21:00 Nasal Cannula 3.0 11/22/20 20:00 98.0 84 20 132/80 (97) 94 11/22/20 16:00 97.7 101 19 128/82 (97) 98 11/22/20 12:00 97.1 100 19 105/71 (82) 100 Height (Feet): 6 Height (Inches): 1.00 Weight (Pounds): 200 Gen: NAD HEENT: NCAT, EOMI Pulm: BL chest rise Abd: Distended, soft, +fluid wave Ext: No c/c/e Neuro: Awake, interactive Laboratory Tests Test 11/22/20 11:36 11/22/20 16:35 11/22/20 20:28 11/23/20 05:25 POC Whole Blood Glucose Pending Pending 112 MG/DL (74-106) H Pending Current Medications Medications (Trade) Dose Ordered Sig/Kylah Route PRN Reason Start Time Stop Time Status Last Admin Dose Admin Acetaminophen (Tylenol) 500 mg Q6H PRN ORAL Mild Pain 11/02/20 08:30 12/02/20 08:29 11/13/20 08:33 Acetaminophen (Tylenol) 500 mg Q6H PRN ORAL fever > 100.2 11/02/20 08:45 12/02/20 08:44 Acetaminophen/ Hydrocodone Bitart ([place] 5/325) 1 tab Q6H PRN ORAL Severe Pain (Pain Scale 7-10) 11/18/20 13:00 11/25/20 12:59 11/23/20 05:28 Allopurinol (Zyloprim) 200 mg DAILY ORAL 11/04/20 15:00 12/04/20 14:59 11/23/20 08:23 Carbamide Peroxide (Debrox) 3 drop BEDTIME BOTH EARS 11/20/20 21:00 11/24/20 23:00 11/22/20 20:31 Clobetasol Propionate (Temovate) 1 applic TWICE A DAY TOPIC 11/21/20 13:30 02/19/21 13:29 11/23/20 08:24 Dextrose (Dextrose 50%) 25 ml Q30M PRN IV Hypoglycemia 11/01/20 18:30 01/30/21 18:29 Dextrose (Dextrose 50%) 50 ml Q30M PRN IV Hypoglycemia 11/01/20 18:30 01/30/21 18:29 Folic Acid (Folate) 3 mg DAILY ORAL 11/03/20 13:15 12/03/20 13:14 11/23/20 08:22 Furosemide (Lasix) 20 mg DAILY IV 11/13/20 10:00 12/13/20 09:59 11/23/20 08:57 Insulin Aspart (NovoLOG) BEFORE MEALS AND HS SUBQ 11/01/20 21:00 01/30/21 20:59 11/21/20 05:41 Lactulose (Cephulac) 20 gm BID ORAL 11/20/20 09:00 12/20/20 08:59 11/23/20 08:22 Magnesium Oxide (Mag-Ox 400mg) 400 mg THREE TIMES A DAY ORAL 11/13/20 13:00 12/13/20 12:59 11/23/20 08:22 Midodrine (Pro-Amatine) 10 mg Q8HR ORAL 11/02/20 14:00 01/31/21 13:59 11/22/20 13:25 Pantoprazole (Protonix) 40 mg DAILY ORAL 11/14/20 09:00 12/14/20 08:59 11/23/20 08:23 Spironolactone (Aldactone) 100 mg DAILY ORAL 11/16/20 09:00 12/16/20 08:59 11/23/20 08:57 Vitamin D (Vitamin D) 5,000 unit DAILY ORAL 11/16/20 09:00 12/16/20 08:59 11/23/20 08:22 Viviana Casper M.D. Nov 23, 2020 10:06
--- NOTE | 2020-11-23 11:35 | Surgery Progress Note ---
Surgery Progress Note Subjective Additional Comments no acute events weaning oxygen doing well d/c planning Objective Last 24 Hour Vital Signs Date Time Temp Pulse Resp B/P (MAP) Pulse Ox O2 Delivery O2 Flow Rate FiO2 11/23/20 09:00 Nasal Cannula 3.0 11/23/20 08:00 97.1 100 19 110/74 (86) 95 100 11/23/20 04:00 97.7 94 24 113/77 (89) 95 11/23/20 00:00 97.9 88 20 118/76 (90) 99 11/22/20 21:00 Nasal Cannula 3.0 11/22/20 20:00 98.0 84 20 132/80 (97) 94 11/22/20 16:00 97.7 101 19 128/82 (97) 98 11/22/20 12:00 97.1 100 19 105/71 (82) 100 I&O Intake and Output 11/22/20 11/23/20 19:00 07:00 Intake Total 800 ml 750 ml Output Total 2000 ml Balance 800 ml -1250 ml Intake Oral 800 ml 750 ml Output Urine Total 2000 ml # Voids 4 Dressing: other Wound: other Cardiovascular: RSR Respiratory: decreased breath sounds Abdomen: soft, non-tender, present bowel sounds, non-distended Extremities: no tenderness, no cyanosis Laboratory Tests Test 11/22/20 11:36 11/22/20 16:35 11/22/20 20:28 11/23/20 05:25 POC Whole Blood Glucose Pending Pending 112 MG/DL (74-106) H Pending Test 11/23/20 11:16 POC Whole Blood Glucose 124 MG/DL (74-106) H Plan Problems: (1) Deep tissue injury Assessment & Plan: Pt presented on admission with DTPI Thoracic Spine(L)1.8cm x (W)1cm. Base of Pressure Injury is purpuric with surrounding non-blanchable eryt josee. Pt complained of tenderness at site. Non-Blanchable erythema without induration noted to Sacrum,R and L Gluteal cheeks including Bilat Ischial tuberosities. Rocker bottom foot noted to Both R and L feet. Both heels are callused,dry and easily blanchable. Tx.Plan: Apply Cavilon Skin Barrier To Thoracic DTPI. Cover with Optifoam drsg. Change every 3 days and prn. Apply Moisture Barrier Paste to Sacrum. Cover with Optifoam drsg. Change every 3 days and prn. Apply Cavilon Skin Barrier to R and L gluteal cheeks and Bilat Ischial tuberosities with each Incontinence care. Reposition at least every 2Hours or as tolerated. Off-load heels with pillow. (2) Hepatic encephalopathy (3) Hypokalemia (4) Ascites (5) Severe sepsis (6) Cirrhosis Assessment & Plan: There is compressive atelectasis right lower lobe. Small right effusion noted. Right hemidiaphragm is elevated. There is a large amount of ascites. Slight nodularity of the hepatic contour noted suggestive of underlying cirrhotic changes. Spleen contains some scattered granulomas. Gallbladder is isodense to liver likely containing tumefactive sludge. The pancreas is unremarkable. Adrenals are normal in morphology. The kidneys are normal in size, shape and axis. Small bowel loops are nondistended. The colon is also nondistended with average amount of stool. The appendix is not visualized. There is no free air. No pathologic adenopathy demonstrated. Urinary bladder appears unremarkable. Degenerative changes of the lumbar spine noted. IMPRESSION: CIRRHOSIS WITH LARGE AMOUNT OF ASCITES. SPLENIC GRANULOMAS. SLUDGE IN THE GALLBLADDER. SMALL RIGHT PLEURAL EFFUSION WITH COMPRESSIVE ATELECTASIS RIGHT LOWER LOBE. ELEVATED RIGHT HEMIDIAPHRAGM. (7) AMS (altered mental status) (8) Electrolyte imbalance (9) Renal failure (ARF), acute on chronic (10) Anemia (11) HTN (hypertension) (12) DMII (diabetes mellitus, type 2) Theodore Alves Nov 23, 2020 11:35
[2020-11-23 11:45] VITALS: BP 109/73
--- NOTE | 2020-11-23 13:32 | NUR ---
RD ASSESSMENT & RECOMMENDATIONS SEE CARE ACTIVITY FOR COMPLETE ASSESSMENT DAILY ESTIMATED NEEDS: Needs based on Liver, DM 85.1 25-30 kcals/kg [id number] total kcals 1.25-1.5 g protein/kg 106-128 g total protein Fluid per MD mL/kg total fluid mLs NUTRITION DIAGNOSIS: Decreased sodium and fat needs r/t liver cirrhosis as evidenced by s/p paracentesis 10.2L removed, elevated T bili-> wnl and LFT's, ammonia elevated on adm, now wnl. CURRENT DIET: [facility] MED PO DIET RECOMMENDATIONS: Low Fat/ Low Sodium textures as tolerated ADDITIONAL RECOMMENDATIONS: 1) With BG >150, rec added CCHO MED diet 2) Obtain a calibrated bed scale wt 3) Monitor lytes and hydration status closely w/ diuretics 4) AM snacks daily per pt request 5) Skin integrity-> add TERRENCE BID, MVI x1
--- NOTE | 2020-11-23 13:47 | Nephrology Progress Note ---
Assessment/Plan Problem List: (1) Renal failure (ARF), acute on chronic (2) Electrolyte imbalance (3) Hypokalemia (4) Cirrhosis (5) DMII (diabetes mellitus, type 2) (6) Anemia (7) HTN (hypertension) Assessment Renal failure most likely acute on chronic Electrolyte imbalances, hypokalemia Sepsis Hepatic encephalopathy, ascites, fatty liver Anemia History of EtOH abuse, history of tobacco abuse, history of drug abuse Diabetes mellitus type 2 Hypertension Lymphopenia, leukocytosis, hypoxia Plan November 23: No CHEM panel drawn today. Clinically stable. Meds reviewed. Continue per current regimen. Check lab tomorrow. November 22: Labs reviewed. Electrolytes reasonably well-maintained. Continue per current treatment plan. November 21: Labs reviewed. Abnormal electrolytes addressed. Neutra-Phos discontinued. Continue per current management. November 20: Labs reviewed. Renal parameters stable. Massive ascites and GI discomfort persists. Medication list reviewed. November 19: Labs reviewed. Serum sodium 133. Normal saline 500 cc bolus given. Continue per consultants. November 18: Labs reviewed. Abnormal electrolytes addressed. Continue per consultants November 17: Labs reviewed. Renal parameters stable. Medication list reviewed. On Lasix and Aldactone. We will continue to monitor blood chemistries and electrolytes. November 16: Labs reviewed. Electrolytes within normal limit now. Continue her current management. November 15: Labs reviewed. Low magnesium addressed. Continue per current management. November 14: Labs reviewed. Renal parameters are stable continue per current management. Vitamin D supplement given. November 13: Labs reviewed. Normal renal parameters. Abnormal electrolytes noted and addressed. Vitamin D level results still pending November 12: Labs reviewed. Serum creatinine now within normal limits. Much improved from renal standpoint of view. November 11: Labs reviewed. Serum creatinine 1.6. Stable from renal standpoint reviewed. November 10: Labs reviewed. Serum creatinine lowered to 1.9. Continue to monitor renal parameters. Magnesium supplement ordered. November 09: No CHEM panel drawn today. Will DC Hernandez due to pain in the urethra. We will continue to monitor renal parameters. Continue per consultants. November 08: Labs reviewed. Serum creatinine 2.3 unchanged. Electrolytes within normal limit. Continue per consultants. November 07: Labs reviewed. Serum creatinine down to 2.3. Continue to monitor electrolytes. Low magnesium addressed. November 06: Labs reviewed. Serum creatinine 2.5 unchanged. Continue per jeremiah norm. November 05: Labs reviewed. Serum creatinine plateauing. Status quo. Electrolyte acceptable. Now on oxygen by cannula. Continue per consultants. November 04 labs reviewed. Patient full code. On Venturi mask. Low potassium addressed. Serum creatinine rising. Continue to monitor renal parameters. Allopurinol initiated November 03: Labs reviewed. Medication list reviewed. Abnormal electrolyte addressed. Continue monitor renal parameters. Continue per consultants. Previously: Trial of 3% saline and albumin bolus Potassium supplement Monitor renal parameters, ammonia, electrolytes ordered Subjective ROS Limited/Unobtainable: No Constitutional: Reports: malaise, weakness Objective Objective Last 24 Hour Vital Signs Date Time Temp Pulse Resp B/P (MAP) Pulse Ox O2 Delivery O2 Flow Rate FiO2 11/23/20 11:45 98.3 97 20 109/73 (85) 99 11/23/20 09:00 Nasal Cannula 3.0 11/23/20 08:00 97.1 100 19 110/74 (86) 95 100 11/23/20 04:00 97.7 94 24 113/77 (89) 95 11/23/20 00:00 97.9 88 20 118/76 (90) 99 11/22/20 21:00 Nasal Cannula 3.0 11/22/20 20:00 98.0 84 20 132/80 (97) 94 11/22/20 16:00 97.7 101 19 128/82 (97) 98 Intake and Output 11/22/20 11/23/20 19:00 07:00 Intake Total 800 ml 750 ml Output Total 2000 ml Balance 800 ml -1250 ml Intake Oral 800 ml 750 ml Output Urine Total 2000 ml # Voids 4 Current Medications Medications (Trade) Dose Ordered Sig/Kylah Route PRN Reason Start Time Stop Time Status Last Admin Dose Admin Acetaminophen (Tylenol) 500 mg Q6H PRN ORAL Mild Pain 11/02/20 08:30 12/02/20 08:29 11/13/20 08:33 Acetaminophen (Tylenol) 500 mg Q6H PRN ORAL fever > 100.2 11/02/20 08:45 12/02/20 08:44 Acetaminophen/ Hydrocodone Bitart ([place] 5/325) 1 tab Q6H PRN ORAL Severe Pain (Pain Scale 7-10) 11/18/20 13:00 11/25/20 12:59 11/23/20 05:28 Allopurinol (Zyloprim) 200 mg DAILY ORAL 11/04/20 15:00 12/04/20 14:59 11/23/20 08:23 Carbamide Peroxide (Debrox) 3 drop BEDTIME BOTH EARS 11/20/20 21:00 11/24/20 23:00 11/22/20 20:31 Clobetasol Propionate (Temovate) 1 applic TWICE A DAY TOPIC 11/21/20 13:30 02/19/21 13:29 11/23/20 08:24 Dextrose (Dextrose 50%) 25 ml Q30M PRN IV Hypoglycemia 11/01/20 18:30 01/30/21 18:29 Dextrose (Dextrose 50%) 50 ml Q30M PRN IV Hypoglycemia 11/01/20 18:30 01/30/21 18:29 Folic Acid (Folate) 3 mg DAILY ORAL 11/03/20 13:15 12/03/20 13:14 11/23/20 08:22 Furosemide (Lasix) 20 mg DAILY IV 11/13/20 10:00 12/13/20 09:59 11/23/20 08:57 Insulin Aspart (NovoLOG) BEFORE MEALS AND HS SUBQ 11/01/20 21:00 01/30/21 20:59 11/21/20 05:41 Lactulose (Cephulac) 20 gm BID ORAL 11/20/20 09:00 12/20/20 08:59 11/23/20 08:22 Magnesium Oxide (Mag-Ox 400mg) 400 mg THREE TIMES A DAY ORAL 11/13/20 13:00 12/13/20 12:59 11/23/20 08:22 Midodrine (Pro-Amatine) 10 mg Q8HR ORAL 11/02/20 14:00 01/31/21 13:59 11/22/20 13:25 Pantoprazole (Protonix) 40 mg DAILY ORAL 11/14/20 09:00 12/14/20 08:59 11/23/20 08:23 Spironolactone (Aldactone) 100 mg DAILY ORAL 11/16/20 09:00 12/16/20 08:59 11/23/20 08:57 Vitamin D (Vitamin D) 5,000 unit DAILY ORAL 11/16/20 09:00 12/16/20 08:59 11/23/20 08:22 Laboratory Tests 11/22/20 16:35: POC Whole Blood Glucose [Pending] 11/22/20 20:28: POC Whole Blood Glucose 112H 11/23/20 05:25: POC Whole Blood Glucose [Pending] 11/23/20 11:16: POC Whole Blood Glucose 124H Height (Feet): 6 Height (Inches): 1.00 Weight (Pounds): 200 General Appearance: no apparent distress Cardiovascular: tachycardia Respiratory/Chest: decreased breath sounds Abdomen: distended Kalin Pozo MD Nov 23, 2020 13:47
--- NOTE | 2020-11-23 13:55 | NUR ---
CASE MANAGEMENT:REVIEW 11/23/20 SI: SEPSIS. HYPOXIA. ETOH ABUSE. ASCITES S/P PARACENTESIS~ 10.2 L REMOVED 97.1 100 19 110/74 95% 3L/NC WBC+11.0 H/H-9.1/28.5 CO2+33 IS: LACTULOSE PO BID PROTONIX PO QD PHOSPHA PO TID MAG OXIDE PO TID ALDACTONE PO QD IV LASIX QD ALLOPURINOL PO QD FOLATE PO QD MIDODRINE PO Q8HRS HEPARIN SQ Q12 : MED/SURG STATUS DCP: FROM HOME.....[facility] HOME? PLAN: WEANING OXYGEN
--- NOTE | 2020-11-23 14:00 | General Progress Note ---
Subjective ROS Limited/Unobtainable: No Allergies: Coded Allergies: No Known Allergies (Unverified , 10/02/16) Objective Last 24 Hour Vital Signs Date Time Temp Pulse Resp B/P (MAP) Pulse Ox O2 Delivery O2 Flow Rate FiO2 11/23/20 11:45 98.3 97 20 109/73 (85) 99 11/23/20 09:00 Nasal Cannula 3.0 11/23/20 08:00 97.1 100 19 110/74 (86) 95 100 11/23/20 04:00 97.7 94 24 113/77 (89) 95 11/23/20 00:00 97.9 88 20 118/76 (90) 99 11/22/20 21:00 Nasal Cannula 3.0 11/22/20 20:00 98.0 84 20 132/80 (97) 94 11/22/20 16:00 97.7 101 19 128/82 (97) 98 Intake and Output 11/22/20 11/23/20 19:00 07:00 Intake Total 800 ml 750 ml Output Total 2000 ml Balance 800 ml -1250 ml Intake Oral 800 ml 750 ml Output Urine Total 2000 ml # Voids 4 Laboratory Tests 11/22/20 16:35: POC Whole Blood Glucose [Pending] 11/22/20 20:28: POC Whole Blood Glucose 112H 11/23/20 05:25: POC Whole Blood Glucose [Pending] 11/23/20 11:16: POC Whole Blood Glucose 124H Height (Feet): 6 Height (Inches): 1.00 Weight (Pounds): 200 General Appearance: no apparent distress EENT: normal ENT inspection Neck: supple Cardiovascular: normal rate Respiratory/Chest: decreased breath sounds Abdomen: hypoactive bowel sounds Extremities: non-tender Assessment/Plan Problem List: (1) Cirrhosis ICD Codes: K74.60 - Unspecified cirrhosis of liver SNOMED: 63355316 (2) Hepatic encephalopathy ICD Codes: K72.90 - Hepatic failure, unspecified without coma; R65.20 - Severe sepsis without septic shock SNOMED: 35865782 (3) Hypokalemia ICD Codes: E87.6 - Hypokalemia; R65.20 - Severe sepsis without septic shock SNOMED: 80509293 (4) Ascites ICD Codes: R18.8 - Other ascites SNOMED: 284393402 (5) Severe sepsis ICD Codes: A41.9 - Sepsis, unspecified organism; R65.20 - Severe sepsis without septic shock SNOMED: 86538460 (6) AMS (altered mental status) ICD Codes: R41.82 - Altered mental status, unspecified SNOMED: 656037557 Assessment/Plan: Assessment/Plan Problem List: (1) Cirrhosis ICD Codes: K74.60 - Unspecified cirrhosis of liver SNOMED: 18976713 (2) Hepatic encephalopathy ICD Codes: K72.90 - Hepatic failure, unspecified without coma; R65.20 - Severe sepsis without septic shock SNOMED: 73573317 (3) Hypokalemia ICD Codes: E87.6 - Hypokalemia; R65.20 - Severe sepsis without septic shock SNOMED: 77916179 (4) Ascites ICD Codes: R18.8 - Other ascites SNOMED: 295140161 (5) Severe sepsis ICD Codes: A41.9 - Sepsis, unspecified organism; R65.20 - Severe sepsis without septic shock SNOMED: 17517688 (6) AMS (altered mental status) ICD Codes: R41.82 - Altered mental status, unspecified SNOMED: 939019318 Assessment/Plan: lactulose PPI f/u ammonia level fu hepatitis panel>>> neg s/p repeat paracentesis x3 lasix aldactone repeat labs Mejia Encarnacion MD Nov 23, 2020 14:00
[2020-11-23 16:00] VITALS: BP 117/73
--- NOTE | 2020-11-23 16:21 | Internal Med Progress Note ---
Subjective Physician Name Ramon Coombs Attending Physician Ramon Coombs MD Current Medications Medications (Trade) Dose Ordered Sig/Kylah Route PRN Reason Start Time Stop Time Status Last Admin Dose Admin Acetaminophen (Tylenol) 500 mg Q6H PRN ORAL Mild Pain 11/02/20 08:30 12/02/20 08:29 11/13/20 08:33 Acetaminophen (Tylenol) 500 mg Q6H PRN ORAL fever > 100.2 11/02/20 08:45 12/02/20 08:44 Acetaminophen/ Hydrocodone Bitart ([place] 5/325) 1 tab Q6H PRN ORAL Severe Pain (Pain Scale 7-10) 11/18/20 13:00 11/25/20 12:59 11/23/20 05:28 Allopurinol (Zyloprim) 200 mg DAILY ORAL 11/04/20 15:00 12/04/20 14:59 11/23/20 08:23 Carbamide Peroxide (Debrox) 3 drop BEDTIME BOTH EARS 11/20/20 21:00 11/24/20 23:00 11/22/20 20:31 Clobetasol Propionate (Temovate) 1 applic TWICE A DAY TOPIC 11/21/20 13:30 02/19/21 13:29 11/23/20 08:24 Dextrose (Dextrose 50%) 25 ml Q30M PRN IV Hypoglycemia 11/01/20 18:30 01/30/21 18:29 Dextrose (Dextrose 50%) 50 ml Q30M PRN IV Hypoglycemia 11/01/20 18:30 01/30/21 18:29 Folic Acid (Folate) 3 mg DAILY ORAL 11/03/20 13:15 12/03/20 13:14 11/23/20 08:22 Furosemide (Lasix) 20 mg DAILY IV 11/13/20 10:00 12/13/20 09:59 11/23/20 08:57 Insulin Aspart (NovoLOG) BEFORE MEALS AND HS SUBQ 11/01/20 21:00 01/30/21 20:59 11/21/20 05:41 Lactulose (Cephulac) 20 gm BID ORAL 11/20/20 09:00 12/20/20 08:59 11/23/20 08:22 Magnesium Oxide (Mag-Ox 400mg) 400 mg THREE TIMES A DAY ORAL 11/13/20 13:00 12/13/20 12:59 11/23/20 13:48 Midodrine (Pro-Amatine) 10 mg Q8HR ORAL 11/02/20 14:00 01/31/21 13:59 11/22/20 13:25 Pantoprazole (Protonix) 40 mg DAILY ORAL 11/14/20 09:00 12/14/20 08:59 11/23/20 08:23 Spironolactone (Aldactone) 100 mg DAILY ORAL 11/16/20 09:00 12/16/20 08:59 11/23/20 08:57 Vitamin D (Vitamin D) 5,000 unit DAILY ORAL 11/16/20 09:00 12/16/20 08:59 11/23/20 08:22 Allergies: Coded Allergies: No Known Allergies (Unverified , 10/02/16) Subjective awake, alert, responsive, NAD, no acute distress. Try to ambulate with PT. Objective Last Vital Signs Date Time Temp Pulse Resp B/P (MAP) Pulse Ox O2 Delivery O2 Flow Rate FiO2 11/23/20 11:45 98.3 97 20 109/73 (85) 99 11/23/20 09:00 Nasal Cannula 3.0 11/21/20 20:00 32 Laboratory Tests Test 11/22/20 16:35 11/22/20 20:28 11/23/20 05:25 11/23/20 11:16 POC Whole Blood Glucose Pending 112 MG/DL (74-106) H Pending 124 MG/DL (74-106) H Intake and Output 11/22/20 11/23/20 19:00 07:00 Intake Total 800 ml 750 ml Output Total 2000 ml Balance 800 ml -1250 ml Intake Oral 800 ml 750 ml Output Urine Total 2000 ml # Voids 4 Objective General: No acute distress, awake, alert, Responsive. HEENT: NCAT, sclera anicteric, PERRL, EOMI. Neck: Supple, no significant jugular venous distention, Lungs: Fair inspiratory effort, , no Wheeze or Rales. Heart: Regular rate and rhythm, normal S1/S2, no murmurs Abdomen: soft, nontender, +distended. positive fluid shift, bowel sound present. / Rectal: Refused and deferred. Extremities: No Cyanosis , clubbing or edema. Neuro: A&O x 3, Able to move all extremities Skin: warm, no rash Assessment/Plan Assessment/Plan Sepsis Acute Hypoxia on BiPAP >> resolved alcohol abuse Liver Cirrhosis, Fatty liver Massive ascites DAVIDE vs CKD DM2 HTN Plan: Abx: Off Repeat paracentesis soon, COVID PCR negative F/u BCx monitor laboratory PT Mobility DC planning to [facility] Ramon Coombs MD Nov 23, 2020 16:21
[2020-11-23] MEDS: Acetaminophen 500mg (ES) tab ORAL PRN (17:17)
--- NOTE | 2020-11-23 19:18 | NUR ---
NURSE HAND-OFF: Important Events on Shift:[pain management] Patient Status: [FC] Diet: [ccho med] Pending Orders: [labs] Pending Results/Labs:[am ] Pending MD notification:[] Latest Vital Signs: Temperature 98.2 , Pulse 77 , B/P 117 /73 , Respiratory Rate 21 , O2 SAT 97 , Bi-pap, O2 Flow Rate 3.0 . Vital Sign Comment: [] Latest Childs Fall Score: 70 Fall Risk: High Risk Safety Measures: Call light Within Reach, Bed Alarm Zone 2, Side Rails Side Rails x3, Bed position Low and Locked. Fall Precautions: Yellow Socks Yellow Gown Door Sign Patient Fall Education Report given to [kenna].
--- NOTE | 2020-11-23 19:30 | NUR ---
NURSE NOTES: Patient awake in bed, asking for CPAP, will call RT. Call light in reach. Bed in lowest, alarm on and lock engaged. Will continue plan of care.
[2020-11-23 20:00] VITALS: BP 117/78
[2020-11-23] MEDS: Carbamide Peroxide 6.5% Ot Sol 15ML BOTH EARS SCH (20:22)
--- NOTE | 2020-11-23 20:30 | NUR ---
NURSE NOTES: RT was called for CPAP.
[2020-11-24] VITALS: BP 112/74
[2020-11-24 04:00] VITALS: BP 126/86
[2020-11-24] MEDS: Midodrine 10mg tab ORAL SCH ×3 (05:09→22:00)
--- NOTE | 2020-11-24 05:29 | NUR ---
NURSE NOTES: Patient had episode of confusion, sat on the edge of the bed and wanted to go home. After few staff talked to him and finally was convinced to go back to bed and went to sleep. He refused accucheck. Explained risks and benefits.
[2020-11-24] MEDS: NovoLOG Insulin Flexpen SUBQ SCH ×4 (05:32→20:19)
[2020-11-24 06:27] LABS: EOSINOPHILS % (AUTO) 0.7 % (0.0-3.0); HEMATOCRIT 27.8 % (42.0-52.0); HEMOGLOBIN 9.2 G/DL (14.2-18.0); LYMPHOCYTES % (AUTO) 7.1 % (20.0-45.0); MEAN CORPUSCULAR VOLUME 105 FL (80-99); MONOCYTES % (AUTO) 8.4 % (1.0-10.0); NEUTROPHILS % (AUTO) 82.7 % (45.0-75.0); PLATELET COUNT 274 K/UL (150-450); RED BLOOD COUNT 2.66 M/UL (4.70-6.10); RED CELL DISTRIBUTION WIDTH 18.2 % (11.6-14.8); WHITE BLOOD COUNT 11.7 K/UL (4.8-10.8)
--- NOTE | 2020-11-24 07:00 | NUR ---
NURSE HAND-OFF: Important Events on Shift: patient's confused, safety, hygiene Patient Status: confused Diet: Pending Orders: Pending Results/Labs: Pending MD notification: Latest Vital Signs: Temperature 97.3 , Pulse 105 , B/P 126 /86 , Respiratory Rate 24 , O2 SAT 92 , Bi-pap, O2 Flow Rate 3.0 . Vital Sign Comment: Latest Childs Fall Score: 70 Fall Risk: High Risk Safety Measures: Call light Within Reach, Bed Alarm Zone 2, Side Rails Side Rails x3, Bed position Low and Locked. Fall Precautions: Yellow Socks Yellow Gown Door Sign Patient Fall Education Report given to Herminia.
[2020-11-24 07:14] LABS: ALANINE AMINOTRANSFERASE 15 U/L (12-78); ALBUMIN 1.6 G/DL (3.4-5.0); ALBUMIN/GLOBULIN RATIO 0.3 (1.0-2.7); ALKALINE PHOSPHATASE 122 U/L (46-116); ANION GAP 3 mmol/L (5-15); ASPARTATE AMINO TRANSFERASE 33 U/L (15-37); BILIRUBIN,TOTAL 0.9 MG/DL (0.2-1.0); BLOOD UREA NITROGEN 15 mg/dL (7-18); CALCIUM 8.9 MG/DL (8.5-10.1); CARBON DIOXIDE 35 MMOL/L (21-32); CHLORIDE 98 MMOL/L (98-107); CREATININE 0.8 MG/DL (0.55-1.30); PHOSPHORUS 4.4 MG/DL (2.5-4.9); POTASSIUM 4.3 MMOL/L (3.5-5.1); SODIUM 136 MMOL/L (136-145)
--- NOTE | 2020-11-24 07:32 | General Progress Note ---
Subjective ROS Limited/Unobtainable: Yes Allergies: Coded Allergies: No Known Allergies (Unverified , 10/02/16) Objective Last 24 Hour Vital Signs Date Time Temp Pulse Resp B/P (MAP) Pulse Ox O2 Delivery O2 Flow Rate FiO2 11/24/20 04:00 97.3 105 24 126/86 (99) 92 11/24/20 00:00 97.1 96 22 112/74 (87) 99 11/23/20 21:00 Nasal Cannula 3.0 11/23/20 20:00 97.3 103 24 117/78 (91) 97 11/23/20 19:31 97 Nasal Cannula 3.0 32 11/23/20 17:47 98.2 11/23/20 16:00 98.2 77 21 117/73 (88) 97 11/23/20 11:45 98.3 97 20 109/73 (85) 99 11/23/20 09:00 Nasal Cannula 3.0 11/23/20 08:00 97.1 100 19 110/74 (86) 95 100 Intake and Output 11/23/20 11/24/20 18:59 06:59 Intake Total 1200 ml 600 ml Output Total 2600 ml 1100 ml Balance -1400 ml -500 ml Intake Oral 1200 ml 600 ml Output Urine Total 2600 ml 1100 ml # Voids 4 # Bowel Movements 2 1 Laboratory Tests 11/23/20 11:16: POC Whole Blood Glucose 124H 11/23/20 16:38: POC Whole Blood Glucose 95 11/23/20 20:08: POC Whole Blood Glucose 136H 11/24/20 05:30: White Blood Count 11.7H, Red Blood Count 2.66L, Hemoglobin 9.2L, Hematocrit 27.8L, Mean Corpuscular Volume 105H, Mean Corpuscular Hemoglobin 34.6H, Mean Corpuscular Hemoglobin Concent 33.2, Red Cell Distribution Width 18.2H, Platelet Count 274, Mean Platelet Volume 5.0L, Neutrophils (%) (Auto) 82.7H, Lymphocytes (%) (Auto) 7.1L, Monocytes (%) (Auto) 8.4, Eosinophils (%) (Auto) 0.7, Basophils (%) (Auto) 1.0, Sodium Level 136, Potassium Level 4.3, Chloride Level 98, Carbon Dioxide Level 35H, Anion Gap 3L, Blood Urea Nitrogen 15, Creatinine 0.8, Estimat Glomerular Filtration Rate > 60, Glucose Level 105, Uric Acid 4.6, Calcium Level 8.9, Phosphorus Level 4.4, Magnesium Level 1.9, Total Bilirubin 0.9, Aspartate Amino Transf (AST/SGOT) 33, Alanine Aminotransferase (ALT/SGPT) 15, Alkaline Phosphatase 122H, C-Reactive Protein, Quantitative 6.8H, Pro-B-Type Natriuretic Peptide 309H, Total Protein 6.8, Albumin 1.6L, Globulin 5.2, Albumin/Globulin Ratio 0.3L Height (Feet): 6 Height (Inches): 1.00 Weight (Pounds): 200 General Appearance: no apparent distress EENT: normal ENT inspection Neck: supple Cardiovascular: normal rate Respiratory/Chest: decreased breath sounds Abdomen: normal bowel sounds, non tender, soft Extremities: non-tender Assessment/Plan Problem List: (1) Cirrhosis ICD Codes: K74.60 - Unspecified cirrhosis of liver SNOMED: 47732708 (2) Hepatic encephalopathy ICD Codes: K72.90 - Hepatic failure, unspecified without coma; R65.20 - Severe sepsis without septic shock SNOMED: 48094954 (3) Hypokalemia ICD Codes: E87.6 - Hypokalemia; R65.20 - Severe sepsis without septic shock SNOMED: 47943358 (4) Ascites ICD Codes: R18.8 - Other ascites SNOMED: 926731399 (5) Severe sepsis ICD Codes: A41.9 - Sepsis, unspecified organism; R65.20 - Severe sepsis without septic shock SNOMED: 81515641 (6) AMS (altered mental status) ICD Codes: R41.82 - Altered mental status, unspecified SNOMED: 878822447 Assessment/Plan: Assessment/Plan Problem List: (1) Cirrhosis ICD Codes: K74.60 - Unspecified cirrhosis of liver SNOMED: 05185677 (2) Hepatic encephalopathy ICD Codes: K72.90 - Hepatic failure, unspecified without coma; R65.20 - Severe sepsis without septic shock SNOMED: 76974160 (3) Hypokalemia ICD Codes: E87.6 - Hypokalemia; R65.20 - Severe sepsis without septic shock SNOMED: 34648061 (4) Ascites ICD Codes: R18.8 - Other ascites SNOMED: 577320353 (5) Severe sepsis ICD Codes: A41.9 - Sepsis, unspecified organism; R65.20 - Severe sepsis without septic shock SNOMED: 05246689 (6) AMS (altered mental status) ICD Codes: R41.82 - Altered mental status, unspecified SNOMED: 437991327 Assessment/Plan: lactulose PPI f/u ammonia level fu hepatitis panel>>> neg s/p repeat paracentesis x3 lasix aldactone repeat labs Mejia Encarnacion MD Nov 24, 2020 07:32
--- NOTE | 2020-11-24 07:35 | NUR ---
NURSE NOTES: RECEIVED PATIENT A/A/OX3, PERIODS OF FORGETFULNESS. IN BED WITH ELEVATED HOB HAVING BREAKFAST. ON RA @ THIS TIME. ABLE TO TOLERATE. ABLE TO VERBALIZE NEEDS. ABDOMEN SOFT AND DISTENDED. NO C/O PAIN OR DISCOMFORT NOTED. NO ACUTE CARDIO-RESP DISTRESS NOTED. TOLERATED FOOD INTAKE WELL. PIV ACCESS [id number] SALINE LOCK. PATENT AND INTACT. KEPT BED IN THE LOWEST POSITION. SIDERAILS ARE UPX3. BED ALARM ENGAGED AND LOCKED. WILL CONT TO MONITOR
[2020-11-24 08:00] VITALS: BP 128/81
[2020-11-24] MEDS: Lactulose 20gm/30ml UDC ORAL SCH ×2 (08:01→17:09)
[2020-11-24] MEDS: Magnesium Oxide 400mg tab ORAL SCH ×3 (08:10→17:09)
[2020-11-24] MEDS: Vitamin D 1000 units Tab ORAL SCH (08:10)
[2020-11-24] MEDS: Spironolactone 50mg tab ORAL SCH (08:11)
[2020-11-24] MEDS: Allopurinol 100mg Tab ORAL SCH (08:11)
[2020-11-24] MEDS: CLOBETASOL 0.05% TOPIC SCH ×2 (08:12→17:09)
--- NOTE | 2020-11-24 08:28 | Infectious Diseases Prog Note ---
Assessment/Plan 60yo M with: Sepsis Afebrile Hypoxia on BiPAP >> NRB mask >> venti mask Leukocytosis to 14, improving Lymphopenia 11/01 BCx NTD COVID PCR neg CXR: Elevated right hemidiaphragm. Possible right basilar airspace disease and right effusion. CTH: No acute process EtOH abuse Cirrhosis, Fatty liver Massive ascites Elevated AST to 48 Acute hep panel neg 11/01 CT A/P: CIRRHOSIS WITH LARGE AMOUNT OF ASCITES. SPLENIC GRANULOMAS. SLUDGE IN THE GALLBLADDER. SMALL RIGHT PLEURAL EFFUSION WITH COMPRESSIVE ATELECTASIS RIGHT LOWER LOBE. ELEVATED RIGHT HEMIDIAPHRAGM. 11/02 Paracentesis, 10.2L removed 838 RBC, 142 WBC, 2%PMN, 94%Bourbon's Cx - NTD DAVIDE vs CKD, Cr 2.4, improving HIV screen neg PMH: EtOH abuse, stopped drinking in Sep 2020 Fatty liver DM2 HTN Plan: Cont to monitor off abx as she is stable Trend WBC, overall stable/improving off abx OK to d/c from ID standpoint 11/11 SP Zosyn #10 11/03 SP vanco #2 Monitor CBC/CMP Monitor temp curve, hemodynamics Monitor resp status D/w RN Thank you for this consult. [facility] will continue to follow. Subjective Allergies: Coded Allergies: No Known Allergies (Unverified , 10/02/16) Afebrile Mild Leukocytosis 11 [facility] Objective Last 24 Hour Vital Signs Date Time Temp Pulse Resp B/P (MAP) Pulse Ox O2 Delivery O2 Flow Rate FiO2 11/24/20 07:56 93 Nasal Cannula 3.0 32 11/24/20 04:00 97.3 105 24 126/86 (99) 92 11/24/20 00:00 97.1 96 22 112/74 (87) 99 11/23/20 21:00 Nasal Cannula 3.0 11/23/20 20:00 97.3 103 24 117/78 (91) 97 11/23/20 19:31 97 Nasal Cannula 3.0 32 11/23/20 17:47 98.2 11/23/20 16:00 98.2 77 21 117/73 (88) 97 11/23/20 11:45 98.3 97 20 109/73 (85) 99 11/23/20 09:00 Nasal Cannula 3.0 Height (Feet): 6 Height (Inches): 1.00 Weight (Pounds): 200 Gen: NAD sattign well on 3L O2 HEENT: NCAT, EOMI Pulm: BL chest rise Abd: Distended, soft, +fluid wave Ext: No c/c/e Neuro: Awake, interactive Laboratory Tests Test 11/23/20 11:16 11/23/20 16:38 11/23/20 20:08 11/24/20 05:30 POC Whole Blood Glucose 124 MG/DL (74-106) H 95 MG/DL (74-106) 136 MG/DL (74-106) H White Blood Count 11.7 K/UL (4.8-10.8) H Red Blood Count 2.66 M/UL (4.70-6.10) L Hemoglobin 9.2 G/DL (14.2-18.0) L Hematocrit 27.8 % (42.0-52.0) L Mean Corpuscular Volume 105 FL (80-99) H Mean Corpuscular Hemoglobin 34.6 PG (27.0-31.0) H Mean Corpuscular Hemoglobin Concent 33.2 G/DL (32.0-36.0) Red Cell Distribution Width 18.2 % (11.6-14.8) H Platelet Count 274 K/UL (150-450) Mean Platelet Volume 5.0 FL (6.5-10.1) L Neutrophils (%) (Auto) 82.7 % (45.0-75.0) H Lymphocytes (%) (Auto) 7.1 % (20.0-45.0) L Monocytes (%) (Auto) 8.4 % (1.0-10.0) Eosinophils (%) (Auto) 0.7 % (0.0-3.0) Basophils (%) (Auto) 1.0 % (0.0-2.0) Sodium Level 136 MMOL/L (136-145) Potassium Level 4.3 MMOL/L (3.5-5.1) Chloride Level 98 MMOL/L (98-107) Carbon Dioxide Level 35 MMOL/L (21-32) H Anion Gap 3 mmol/L (5-15) L Blood Urea Nitrogen 15 mg/dL (7-18) Creatinine 0.8 MG/DL (0.55-1.30) Estimat Glomerular Filtration Rate > 60 mL/min (>60) Glucose Level 105 MG/DL (74-106) Uric Acid 4.6 MG/DL (2.6-7.2) Calcium Level 8.9 MG/DL (8.5-10.1) Phosphorus Level 4.4 MG/DL (2.5-4.9) Magnesium Level 1.9 MG/DL (1.8-2.4) Total Bilirubin 0.9 MG/DL (0.2-1.0) Aspartate Amino Transf (AST/SGOT) 33 U/L (15-37) Alanine Aminotransferase (ALT/SGPT) 15 U/L (12-78) Alkaline Phosphatase 122 U/L (46-116) H C-Reactive Protein, Quantitative 6.8 mg/dL (0.00-0.90) H Pro-B-Type Natriuretic Peptide 309 pg/mL (0-125) H Total Protein 6.8 G/DL (6.4-8.2) Albumin 1.6 G/DL (3.4-5.0) L Globulin 5.2 g/dL Albumin/Globulin Ratio 0.3 (1.0-2.7) L Current Medications Medications (Trade) Dose Ordered Sig/Kylah Route PRN Reason Start Time Stop Time Status Last Admin Dose Admin Acetaminophen (Tylenol) 500 mg Q6H PRN ORAL Mild Pain 11/02/20 08:30 12/02/20 08:29 11/23/20 17:17 Acetaminophen (Tylenol) 500 mg Q6H PRN ORAL fever > 100.2 11/02/20 08:45 12/02/20 08:44 Acetaminophen/ Hydrocodone Bitart ([place] 5/325) 1 tab Q6H PRN ORAL Severe Pain (Pain Scale 7-10) 11/18/20 13:00 11/25/20 12:59 11/23/20 05:28 Allopurinol (Zyloprim) 200 mg DAILY ORAL 11/04/20 15:00 12/04/20 14:59 11/24/20 08:11 Carbamide Peroxide (Debrox) 3 drop BEDTIME BOTH EARS 11/20/20 21:00 11/24/20 23:00 11/23/20 20:22 Clobetasol Propionate (Temovate) 1 applic TWICE A DAY TOPIC 11/21/20 13:30 02/19/21 13:29 11/24/20 08:12 Dextrose (Dextrose 50%) 25 ml Q30M PRN IV Hypoglycemia 11/01/20 18:30 01/30/21 18:29 Dextrose (Dextrose 50%) 50 ml Q30M PRN IV Hypoglycemia 11/01/20 18:30 01/30/21 18:29 Folic Acid (Folate) 3 mg DAILY ORAL 11/03/20 13:15 12/03/20 13:14 11/24/20 08:10 Furosemide (Lasix) 20 mg DAILY IV 11/13/20 10:00 12/13/20 09:59 11/23/20 08:57 Insulin Aspart (NovoLOG) BEFORE MEALS AND HS SUBQ 11/01/20 21:00 01/30/21 20:59 11/21/20 05:41 Lactulose (Cephulac) 20 gm BID ORAL 11/20/20 09:00 12/20/20 08:59 11/23/20 08:22 Magnesium Oxide (Mag-Ox 400mg) 400 mg THREE TIMES A DAY ORAL 11/13/20 13:00 12/13/20 12:59 11/24/20 08:10 Midodrine (Pro-Amatine) 10 mg Q8HR ORAL 11/02/20 14:00 01/31/21 13:59 11/22/20 13:25 Pantoprazole (Protonix) 40 mg DAILY ORAL 11/14/20 09:00 12/14/20 08:59 11/24/20 08:10 Spironolactone (Aldactone) 100 mg DAILY ORAL 11/16/20 09:00 12/16/20 08:59 11/24/20 08:11 Vitamin D (Vitamin D) 5,000 unit DAILY ORAL 11/16/20 09:00 12/16/20 08:59 11/24/20 08:10 Nazario Banks MD Nov 24, 2020 08:28
--- NOTE | 2020-11-24 10:08 | Surgery Progress Note ---
Surgery Progress Note Subjective Additional Comments abd distended again may need repeat para Objective Last 24 Hour Vital Signs Date Time Temp Pulse Resp B/P (MAP) Pulse Ox O2 Delivery O2 Flow Rate FiO2 11/24/20 08:00 97.8 108 19 128/81 (97) 93 11/24/20 07:56 93 Nasal Cannula 3.0 32 11/24/20 04:00 97.3 105 24 126/86 (99) 92 11/24/20 00:00 97.1 96 22 112/74 (87) 99 11/23/20 21:00 Nasal Cannula 3.0 11/23/20 20:00 97.3 103 24 117/78 (91) 97 11/23/20 19:31 97 Nasal Cannula 3.0 32 11/23/20 17:47 98.2 11/23/20 16:00 98.2 77 21 117/73 (88) 97 11/23/20 11:45 98.3 97 20 109/73 (85) 99 I&O Intake and Output 11/23/20 11/24/20 19:00 07:00 Intake Total 1200 ml 600 ml Output Total 2600 ml 1100 ml Balance -1400 ml -500 ml Intake Oral 1200 ml 600 ml Output Urine Total 2600 ml 1100 ml # Voids 4 # Bowel Movements 2 1 Cardiovascular: RSR Respiratory: clear Abdomen: soft, distended, non-tender, present bowel sounds Extremities: no edema, no tenderness, no cyanosis Laboratory Tests Test 11/23/20 11:16 11/23/20 16:38 11/23/20 20:08 11/24/20 05:30 POC Whole Blood Glucose 124 MG/DL (74-106) H 95 MG/DL (74-106) 136 MG/DL (74-106) H White Blood Count 11.7 K/UL (4.8-10.8) H Red Blood Count 2.66 M/UL (4.70-6.10) L Hemoglobin 9.2 G/DL (14.2-18.0) L Hematocrit 27.8 % (42.0-52.0) L Mean Corpuscular Volume 105 FL (80-99) H Mean Corpuscular Hemoglobin 34.6 PG (27.0-31.0) H Mean Corpuscular Hemoglobin Concent 33.2 G/DL (32.0-36.0) Red Cell Distribution Width 18.2 % (11.6-14.8) H Platelet Count 274 K/UL (150-450) Mean Platelet Volume 5.0 FL (6.5-10.1) L Neutrophils (%) (Auto) 82.7 % (45.0-75.0) H Lymphocytes (%) (Auto) 7.1 % (20.0-45.0) L Monocytes (%) (Auto) 8.4 % (1.0-10.0) Eosinophils (%) (Auto) 0.7 % (0.0-3.0) Basophils (%) (Auto) 1.0 % (0.0-2.0) Sodium Level 136 MMOL/L (136-145) Potassium Level 4.3 MMOL/L (3.5-5.1) Chloride Level 98 MMOL/L (98-107) Carbon Dioxide Level 35 MMOL/L (21-32) H Anion Gap 3 mmol/L (5-15) L Blood Urea Nitrogen 15 mg/dL (7-18) Creatinine 0.8 MG/DL (0.55-1.30) Estimat Glomerular Filtration Rate > 60 mL/min (>60) Glucose Level 105 MG/DL (74-106) Uric Acid 4.6 MG/DL (2.6-7.2) Calcium Level 8.9 MG/DL (8.5-10.1) Phosphorus Level 4.4 MG/DL (2.5-4.9) Magnesium Level 1.9 MG/DL (1.8-2.4) Total Bilirubin 0.9 MG/DL (0.2-1.0) Aspartate Amino Transf (AST/SGOT) 33 U/L (15-37) Alanine Aminotransferase (ALT/SGPT) 15 U/L (12-78) Alkaline Phosphatase 122 U/L (46-116) H C-Reactive Protein, Quantitative 6.8 mg/dL (0.00-0.90) H Pro-B-Type Natriuretic Peptide 309 pg/mL (0-125) H Total Protein 6.8 G/DL (6.4-8.2) Albumin 1.6 G/DL (3.4-5.0) L Globulin 5.2 g/dL Albumin/Globulin Ratio 0.3 (1.0-2.7) L Plan Problems: (1) Deep tissue injury Assessment & Plan: Pt presented on admission with DTPI Thoracic Spine(L)1.8cm x (W)1cm. Base of Pressure Injury is purpuric with surrounding non-blanchable erythema. Pt complained of tenderness at site. Non-Blanchable erythema without induration noted to Sacrum,R and L Gluteal cheeks including Bilat Ischial tuberosities. Rocker bottom foot noted to Both R and L feet. Both heels are callused,dry and easily blanchable. Tx.Plan: Apply Cavilon Skin Barrier To Thoracic DTPI. Cover with Optifoam drsg. Change every 3 days and prn. Apply Moisture Barrier Paste to Sacrum. Cover with Optifoam drsg. Change every 3 days and prn. Apply Cavilon Skin Barrier to R and L gluteal cheeks and Bilat Ischial tuberosities with each Incontinence care. Reposition at least every 2Hours or as tolerated. Off-load heels with pillow. (2) Hepatic encephalopathy (3) Hypokalemia (4) Ascites (5) Severe sepsis (6) Cirrhosis Assessment & Plan: distended again may need repeat para gi input There is compressive atelectasis right lower lobe. Small right effusion noted. Right hemidiaphragm is elevated. There is a large amount of ascites. Slight nodularity of the hepatic contour noted suggestive of underlying cirrhotic changes. Spleen contains some scattered granulomas. Gallbladder is isodense to liver likely containing tumefactive sludge. The pancreas is unremarkable. Adrenals are normal in morphology. The kidneys are normal in size, shape and axis. Small bowel loops are nondistended. The colon is also nondistended with average amount of stool. The appendix is not visualized. There is no free air. No pathologic adenopathy demonstrated. Urinary bladder appears unremarkable. Degenerative changes of the lumbar spine noted. IMPRESSION: CIRRHOSIS WITH LARGE AMOUNT OF ASCITES. SPLENIC GRANULOMAS. SLUDGE IN THE GALLBLADDER. SMALL RIGHT PLEURAL EFFUSION WITH COMPRESSIVE ATELECTASIS RIGHT LOWER LOBE. ELEVATED RIGHT HEMIDIAPHRAGM. (7) AMS (altered mental status) (8) Electrolyte imbalance (9) Renal failure (ARF), acute on chronic (10) Anemia (11) HTN (hypertension) (12) DMII (diabetes mellitus, type 2) Theodore Alves Nov 24, 2020 10:08
--- NOTE | 2020-11-24 10:20 | NUR ---
NURSE NOTES: PATIENT REQUIRES REORIENTATION. WILL CONT TO MONITOR.
--- NOTE | 2020-11-24 11:00 | NUR ---
NURSE NOTES: SKIN IS INTACT. KEPT BILATERAL LOWER EXTREMITIES FLOATED WITH PILLOWS. COVERED BOTH HEELS WITH OPTIFOAM PROPHYLACTIC. WILL CONT TO MONITOR.
--- NOTE | 2020-11-24 11:24 | Nephrology Progress Note ---
Assessment/Plan Problem List: (1) Renal failure (ARF), acute on chronic (2) Electrolyte imbalance (3) Hypokalemia (4) Cirrhosis (5) DMII (diabetes mellitus, type 2) (6) Anemia (7) HTN (hypertension) Assessment Renal failure most likely acute on chronic Electrolyte imbalances, hypokalemia Sepsis Hepatic encephalopathy, ascites, fatty liver Anemia History of EtOH abuse, history of tobacco abuse, history of drug abuse Diabetes mellitus type 2 Hypertension Lymphopenia, leukocytosis, hypoxia Plan November 24: Labs reviewed. Renal parameters stable. Continues to have ascites requiring periodic Paracentesis. Not much to add from renal standpoint to view. Medication list reviewed. November 23: No CHEM panel drawn today. Clinically stable. Meds reviewed. Continue per current regimen. Check lab tomorrow. November 22: Labs reviewed. Electrolytes reasonably well-maintained. Continue per current treatment plan. November 21: Labs reviewed. Abnormal electrolytes addressed. Neutra-Phos discontinued. Continue per current management. November 20: Labs reviewed. Renal parameters stable. Massive ascites and GI discomfort persists. Medication list reviewed. November 19: Labs reviewed. Serum sodium 133. Normal saline 500 cc bolus given. Continue per consultants. November 18: Labs reviewed. Abnormal electrolytes addressed. Continue per consultants November 17: Labs reviewed. Renal parameters stable. Medication list reviewed. On Lasix and Aldactone. We will continue to monitor blood chemistries and electrolytes. November 16: Labs reviewed. Electrolytes within normal limit now. Continue her current management. November 15: Labs reviewed. Low magnesium addressed. Continue per current management. November 14: Labs reviewed. Renal parameters are stable continue per current management. Vitamin D supplement given. November 13: Labs reviewed. Normal renal parameters. Abnormal electrolytes noted and addressed. Vitamin D level results still pending November 12: Labs reviewed. Serum creatinine now within normal limits. Much improved from renal standpoint of view. November 11: Labs reviewed. Serum creatinine 1.6. Stable from renal standpoint reviewed. November 10: Labs reviewed. Serum creatinine lowered to 1.9. Continue to monitor renal parameters. Magnesium supplement ordered. November 09: No CHEM panel drawn today. Will DC Hernandez due to pain in the urethra. We will continue to monitor renal parameters. Continue per consultants. November 08: Labs reviewed. Serum creatinine 2.3 unchanged. Electrolytes within normal limit. Continue per consultants. November 07: Labs reviewed. Serum creatinine down to 2.3. Continue to monitor electrolytes. Low magnesium addressed. November 06: Labs reviewed. Serum creatinine 2.5 unchanged. Continue per consultants. November 05: Labs reviewed. Serum creatinine plateauing. Status quo. Electrolyte acceptable. Now on oxygen by cannula. Continue per consultants. November 04 labs reviewed. Patient full code. On Venturi mask. Low potassium addressed. Serum creatinine rising. Continue to monitor renal parameters. Allopurinol initiated November 03: Labs reviewed. Medication list reviewed. Abnormal electrolyte addressed. Continue monitor renal parameters. Continue per consultants. Previously: Trial of 3% saline and albumin bolus Potassium supplement Monitor renal parameters, ammonia, electrolytes ordered Subjective ROS Limited/Unobtainable: No Constitutional: Reports: malaise, weakness Objective Objective Last 24 Hour Vital Signs Date Time Temp Pulse Resp B/P (MAP) Pulse Ox O2 Delivery O2 Flow Rate FiO2 11/24/20 09:00 Nasal Cannula 3.0 11/24/20 08:00 97.8 108 19 128/81 (97) 93 11/24/20 07:56 93 Nasal Cannula 3.0 32 11/24/20 04:00 97.3 105 24 126/86 (99) 92 11/24/20 00:00 97.1 96 22 112/74 (87) 99 11/23/20 21:00 Nasal Cannula 3.0 11/23/20 20:00 97.3 103 24 117/78 (91) 97 11/23/20 19:31 97 Nasal Cannula 3.0 32 11/23/20 17:47 98.2 11/23/20 16:00 98.2 77 21 117/73 (88) 97 11/23/20 11:45 98.3 97 20 109/73 (85) 99 Intake and Output 11/23/20 11/24/20 19:00 07:00 Intake Total 1200 ml 600 ml Output Total 2600 ml 1100 ml Balance -1400 ml -500 ml Intake Oral 1200 ml 600 ml Output Urine Total 2600 ml 1100 ml # Voids 4 # Bowel Movements 2 1 Current Medications Medications (Trade) Dose Ordered Sig/Kylah Route PRN Reason Start Time Stop Time Status Last Admin Dose Admin Acetaminophen (Tylenol) 500 mg Q6H PRN ORAL Mild Pain 11/02/20 08:30 12/02/20 08:29 11/23/20 17:17 Acetaminophen (Tylenol) 500 mg Q6H PRN ORAL fever > 100.2 11/02/20 08:45 12/02/20 08:44 Acetaminophen/ Hydrocodone Bitart ([place] 5/325) 1 tab Q6H PRN ORAL Severe Pain (Pain Scale 7-10) 11/18/20 13:00 11/25/20 12:59 11/23/20 05:28 Allopurinol (Zyloprim) 200 mg DAILY ORAL 11/04/20 15:00 12/04/20 14:59 11/24/20 08:11 Carbamide Peroxide (Debrox) 3 drop BEDTIME BOTH EARS 11/20/20 21:00 11/24/20 23:00 11/23/20 20:22 Clobetasol Propionate (Temovate) 1 applic TWICE A DAY TOPIC 11/21/20 13:30 02/19/21 13:29 11/24/20 08:12 Dextrose (Dextrose 50%) 25 ml Q30M PRN IV Hypoglycemia 11/01/20 18:30 01/30/21 18:29 Dextrose (Dextrose 50%) 50 ml Q30M PRN IV Hypoglycemia 11/01/20 18:30 01/30/21 18:29 Folic Acid (Folate) 3 mg DAILY ORAL 11/03/20 13:15 12/03/20 13:14 11/24/20 08:10 Furosemide (Lasix) 20 mg DAILY IV 11/13/20 10:00 12/13/20 09:59 11/24/20 09:16 Insulin Aspart (NovoLOG) BEFORE MEALS AND HS SUBQ 11/01/20 21:00 01/30/21 20:59 11/21/20 05:41 Lactulose (Cephulac) 20 gm BID ORAL 11/20/20 09:00 12/20/20 08:59 11/23/20 08:22 Magnesium Oxide (Mag-Ox 400mg) 400 mg THREE TIMES A DAY ORAL 11/13/20 13:00 12/13/20 12:59 11/24/20 08:10 Midodrine (Pro-Amatine) 10 mg Q8HR ORAL 11/02/20 14:00 01/31/21 13:59 11/22/20 13:25 Pantoprazole (Protonix) 40 mg DAILY ORAL 11/14/20 09:00 12/14/20 08:59 11/24/20 08:10 Spironolactone (Aldactone) 100 mg DAILY ORAL 11/16/20 09:00 12/16/20 08:59 11/24/20 08:11 Vitamin D (Vitamin D) 5,000 unit DAILY ORAL 11/16/20 09:00 12/16/20 08:59 11/24/20 08:10 Laboratory Tests 11/23/20 16:38: POC Whole Blood Glucose 95 11/23/20 20:08: POC Whole Blood Glucose 136H 11/24/20 05:30: White Blood Count 11.7H, Red Blood Count 2.66L, Hemoglobin 9.2L, Hematocrit 27.8L, Mean Corpuscular Volume 105H, Mean Corpuscular Hemoglobin 34.6H, Mean Corpuscular Hemoglobin Concent 33.2, Red Cell Distribution Width 18.2H, Platelet Count 274, Mean Platelet Volume 5.0L, Neutrophils (%) (Auto) 82.7H, Lymphocytes (%) (Auto) 7.1L, Monocytes (%) (Auto) 8.4, Eosinophils (%) (Auto) 0.7, Basophils (%) (Auto) 1.0, Sodium Level 136, Potassium Level 4.3, Chloride Level 98, Carbon Dioxide Level 35H, Anion Gap 3L, Blood Urea Nitrogen 15, Creatinine 0.8, Estimat Glomerular Filtration Rate > 60, Glucose Level 105, Uric Acid 4.6, Calcium Level 8.9, Phosphorus Level 4.4, Magnesium Level 1.9, Total Bilirubin 0.9, Aspartate Amino Transf (AST/SGOT) 33, Alanine Aminotransferase (ALT/SGPT) 15, Alkaline Phosphatase 122H, C-Reactive Protein, Quantitative 6.8H, Pro-B-Type Natriuretic Peptide 309H, Total Protein 6.8, Albumin 1.6L, Globulin 5.2, Albumin/Globulin Ratio 0.3L Height (Feet): 6 Height (Inches): 1.00 Weight (Pounds): 200 General Appearance: lethargic, mild distress Cardiovascular: tachycardia Respiratory/Chest: decreased breath sounds Abdomen: distended, other - Massive ascites Kalin Pozo MD Nov 24, 2020 11:24
[2020-11-24 12:00] VITALS: BP 126/86
[2020-11-24 16:00] VITALS: BP 121/82
--- NOTE | 2020-11-24 17:39 | Internal Med Progress Note ---
Subjective Date of Service: Nov 24, 2020 Physician Name Jered Case Attending Physician Ramon Coombs MD Current Medications Medications (Trade) Dose Ordered Sig/Kylah Route PRN Reason Start Time Stop Time Status Last Admin Dose Admin Acetaminophen (Tylenol) 500 mg Q6H PRN ORAL Mild Pain 11/02/20 08:30 12/02/20 08:29 11/23/20 17:17 Acetaminophen (Tylenol) 500 mg Q6H PRN ORAL fever > 100.2 11/02/20 08:45 12/02/20 08:44 Acetaminophen/ Hydrocodone Bitart ([place] 5/325) 1 tab Q6H PRN ORAL Severe Pain (Pain Scale 7-10) 11/24/20 19:00 12/01/20 18:59 Allopurinol (Zyloprim) 200 mg DAILY ORAL 11/04/20 15:00 12/04/20 14:59 11/24/20 08:11 Carbamide Peroxide (Debrox) 3 drop BEDTIME BOTH EARS 11/20/20 21:00 11/24/20 23:00 11/23/20 20:22 Clobetasol Propionate (Temovate) 1 applic TWICE A DAY TOPIC 11/21/20 13:30 02/19/21 13:29 11/24/20 17:09 Dextrose (Dextrose 50%) 25 ml Q30M PRN IV Hypoglycemia 11/01/20 18:30 01/30/21 18:29 Dextrose (Dextrose 50%) 50 ml Q30M PRN IV Hypoglycemia 11/01/20 18:30 01/30/21 18:29 Folic Acid (Folate) 3 mg DAILY ORAL 11/03/20 13:15 12/03/20 13:14 11/24/20 08:10 Furosemide (Lasix) 20 mg DAILY IV 11/13/20 10:00 12/13/20 09:59 11/24/20 09:16 Insulin Aspart (NovoLOG) BEFORE MEALS AND HS SUBQ 11/01/20 21:00 01/30/21 20:59 11/21/20 05:41 Lactulose (Cephulac) 20 gm BID ORAL 11/20/20 09:00 12/20/20 08:59 11/23/20 08:22 Magnesium Oxide (Mag-Ox 400mg) 400 mg THREE TIMES A DAY ORAL 11/13/20 13:00 12/13/20 12:59 11/24/20 17:09 Midodrine (Pro-Amatine) 10 mg Q8HR ORAL 11/02/20 14:00 01/31/21 13:59 11/22/20 13:25 Pantoprazole (Protonix) 40 mg DAILY ORAL 11/14/20 09:00 12/14/20 08:59 11/24/20 08:10 Spironolactone (Aldactone) 100 mg DAILY ORAL 11/16/20 09:00 12/16/20 08:59 11/24/20 08:11 Vitamin D (Vitamin D) 5,000 unit DAILY ORAL 11/16/20 09:00 12/16/20 08:59 11/24/20 08:10 Allergies: Coded Allergies: No Known Allergies (Unverified , 10/02/16) ROS Limited/Unobtainable: No Constitutional: Reports: no symptoms HEENT: Reports: no symptoms Cardiovascular: Reports: no symptoms Respiratory: Reports: no symptoms Gastrointestinal/Abdominal: Reports: no symptoms Genitourinary: Reports: no symptoms Neurologic/Psychiatric: Reports: no symptoms Subjective 60 YO M with history of alcohol dependence admitted with shortness of breath. Now respiratroy failure. Cover for Int Med-DR Coombs. S/P paracentesis 11/02/20 Objective Last Vital Signs Date Time Temp Pulse Resp B/P (MAP) Pulse Ox O2 Delivery O2 Flow Rate FiO2 11/24/20 16:00 97.7 113 19 121/82 (95) 93 11/24/20 09:00 Nasal Cannula 3.0 11/24/20 07:56 32 Laboratory Tests Test 11/23/20 20:08 11/24/20 05:30 11/24/20 12:10 11/24/20 12:14 POC Whole Blood Glucose 136 MG/DL (74-106) H 284 MG/DL (74-106) H 109 MG/DL (74-106) H White Blood Count 11.7 K/UL (4.8-10.8) H Red Blood Count 2.66 M/UL (4.70-6.10) L Hemoglobin 9.2 G/DL (14.2-18.0) L Hematocrit 27.8 % (42.0-52.0) L Mean Corpuscular Volume 105 FL (80-99) H Mean Corpuscular Hemoglobin 34.6 PG (27.0-31.0) H Mean Corpuscular Hemoglobin Concent 33.2 G/DL (32.0-36.0) Red Cell Distribution Width 18.2 % (11.6-14.8) H Platelet Count 274 K/UL (150-450) Mean Platelet Volume 5.0 FL (6.5-10.1) L Neutrophils (%) (Auto) 82.7 % (45.0-75.0) H Lymphocytes (%) (Auto) 7.1 % (20.0-45.0) L Monocytes (%) (Auto) 8.4 % (1.0-10.0) Eosinophils (%) (Auto) 0.7 % (0.0-3.0) Basophils (%) (Auto) 1.0 % (0.0-2.0) Sodium Level 136 MMOL/L (136-145) Potassium Level 4.3 MMOL/L (3.5-5.1) Chloride Level 98 MMOL/L (98-107) Carbon Dioxide Level 35 MMOL/L (21-32) H Anion Gap 3 mmol/L (5-15) L Blood Urea Nitrogen 15 mg/dL (7-18) Creatinine 0.8 MG/DL (0.55-1.30) Estimat Glomerular Filtration Rate > 60 mL/min (>60) Glucose Level 105 MG/DL (74-106) Uric Acid 4.6 MG/DL (2.6-7.2) Calcium Level 8.9 MG/DL (8.5-10.1) Phosphorus Level 4.4 MG/DL (2.5-4.9) Magnesium Level 1.9 MG/DL (1.8-2.4) Total Bilirubin 0.9 MG/DL (0.2-1.0) Aspartate Amino Transf (AST/SGOT) 33 U/L (15-37) Alanine Aminotransferase (ALT/SGPT) 15 U/L (12-78) Alkaline Phosphatase 122 U/L (46-116) H C-Reactive Protein, Quantitative 6.8 mg/dL (0.00-0.90) H Pro-B-Type Natriuretic Peptide 309 pg/mL (0-125) H Total Protein 6.8 G/DL (6.4-8.2) Albumin 1.6 G/DL (3.4-5.0) L Globulin 5.2 g/dL Albumin/Globulin Ratio 0.3 (1.0-2.7) L Test 11/24/20 16:27 POC Whole Blood Glucose 117 MG/DL (74-106) H Intake and Output 11/23/20 11/24/20 19:00 07:00 Intake Total 1200 ml 600 ml Output Total 2600 ml 1100 ml Balance -1400 ml -500 ml Intake Oral 1200 ml 600 ml Output Urine Total 2600 ml 1100 ml # Voids 4 # Bowel Movements 2 1 Objective Objective General: No acute distress, awake and alert HEENT: NCAT, sclera anicteric, PERRL, EOMI. Neck: Supple, no significant jugular venous distention, Lungs: Nasal canula; Fair inspiratory effort, , no Wheeze or Rales. Heart: Regular rate and rhythm, normal S1/S2, no murmurs Abdomen: soft, nontender, +distended. positive fluid shift, bowel sound present. / Rectal: Refused and deferred. Extremities: No Cyanosis , clubbing or edema. Neuro: A&O x 3, Able to move all extremities Skin: warm, no rash Assessment/Plan Assessment/Plan Assessment/Plan Assessment/Plan Sepsis Acute Hypoxia on BiPAP >> NRB mask >> venturi mask>>nasal canula alcohol abuse Liver Cirrhosis, Fatty liver Massive ascites renal failure DM2 HTN Plan: ABX=S/P vanco and Zosyn High volume paracentesis, COVID PCR=Neg F/u BCx GI=Dr Encarnacion Nephrol=Dr Pozo S/P paracentesis 11/02/20 Discharge planning Jered Case MD Nov 24, 2020 17:39
--- NOTE | 2020-11-24 19:00 | NUR ---
NURSE NOTES: Received report from [facility]. Pt is in bed watching television. Pt has no complaints right now, bed locked and in lowest position, side rails up x3, call light within reach. Will continue to monitor.
--- NOTE | 2020-11-24 19:01 | NUR ---
NURSE HAND-OFF: Important Events on Shift:[repositioned] Patient Status: [fc] Diet: [ccho med] Pending Orders: [] Pending Results/Labs:[] Pending MD notification:[] Latest Vital Signs: Temperature 97.7 , Pulse 113 , B/P 121 /82 , Respiratory Rate 19 , O2 SAT 93 , Bi-pap, O2 Flow Rate 3.0 . Vital Sign Comment: [] Latest Childs Fall Score: 70 Fall Risk: High Risk Safety Measures: Call light Within Reach, Bed Alarm Zone 2, Side Rails Side Rails x3, Bed position Low and Locked. Fall Precautions: Yellow Socks Yellow Gown Door Sign Patient Fall Education Report given to [charlee].
[2020-11-24 20:00] VITALS: BP 120/70
[2020-11-24] MEDS: Carbamide Peroxide 6.5% Ot Sol 15ML BOTH EARS SCH (20:18)
[2020-11-25] VITALS: BP 121/78
[2020-11-25 04:00] VITALS: BP 125/77
[2020-11-25] MEDS: Midodrine 10mg tab ORAL SCH ×3 (05:44→22:00)
[2020-11-25] MEDS: NovoLOG Insulin Flexpen SUBQ SCH ×4 (05:44→20:24)
--- NOTE | 2020-11-25 07:00 | NUR ---
NURSE HAND-OFF: Important Events on Shift: BM x4 Patient Status: sleeping Diet: ccho medium Pending Orders: Pending Results/Labs: Pending MD notification: Latest Vital Signs: Temperature 97.8 , Pulse 104 , B/P 125 /77 , Respiratory Rate 20 , O2 SAT 96 , Bi-pap, O2 Flow Rate 3.0 . Vital Sign Comment: VSS Latest Childs Fall Score: 70 Fall Risk: High Risk Safety Measures: Call light Within Reach, Bed Alarm Zone 2, Side Rails Side Rails x3, Bed position Low and Locked. Fall Precautions: Yellow Socks Yellow Gown Door Sign Patient Fall Education Report given to ROXI Adams.
[2020-11-25] MEDS: HYDROcodone/Acetamin 5/325 tab ORAL PRN ×2 (07:39→20:20)
[2020-11-25] MEDS: Magnesium Oxide 400mg tab ORAL SCH ×3 (07:45→18:11)
[2020-11-25] MEDS: Allopurinol 100mg Tab ORAL SCH (07:45)
[2020-11-25] MEDS: Vitamin D 1000 units Tab ORAL SCH (07:45)
[2020-11-25] MEDS: Spironolactone 50mg tab ORAL SCH (07:46)
[2020-11-25] MEDS: Lactulose 20gm/30ml UDC ORAL SCH ×2 (07:47→18:00)
[2020-11-25] MEDS: CLOBETASOL 0.05% TOPIC SCH ×2 (07:50→18:00)
[2020-11-25 08:00] VITALS: BP 125/81
--- NOTE | 2020-11-25 08:00 | NUR ---
NURSE NOTES: Received patient awake in bed, on 3L O2/min. No use of CPAP last night per NOC ROXI Lange. patient is oriented x4, BLE weakness, unable to stand up. Marked ascitis. RFA IV access, saline locked. CCHO Medium diet, with blood sugar checks AC, HS. Call light within reach. Bed in locked, and in lowest position possible, alarm on. Will continue monitoring patient and following with the plan of care.
--- NOTE | 2020-11-25 08:42 | General Progress Note ---
Subjective ROS Limited/Unobtainable: Yes Allergies: Coded Allergies: No Known Allergies (Unverified , 10/02/16) Objective Last 24 Hour Vital Signs Date Time Temp Pulse Resp B/P (MAP) Pulse Ox O2 Delivery O2 Flow Rate FiO2 11/25/20 08:14 94 Nasal Cannula 3.0 32 11/25/20 04:00 97.8 104 20 125/77 (93) 96 11/25/20 00:00 98.4 103 20 121/78 (92) 97 11/24/20 21:00 Nasal Cannula 3.0 11/24/20 20:00 97.7 106 18 120/70 (87) 96 11/24/20 19:21 94 Nasal Cannula 3.0 32 11/24/20 16:00 97.7 113 19 121/82 (95) 93 11/24/20 12:00 98.6 108 20 126/86 (99) 93 11/24/20 09:00 Nasal Cannula 3.0 Intake and Output 11/24/20 11/25/20 19:00 07:00 Intake Total 840 ml Output Total 600 ml Balance 840 ml -600 ml Intake Oral 840 ml Other 600 ml # Voids 3 # Bowel Movements 2 5 Laboratory Tests 11/24/20 12:10: POC Whole Blood Glucose 284H 11/24/20 12:14: POC Whole Blood Glucose 109H 11/24/20 16:27: POC Whole Blood Glucose 117H 11/24/20 20:14: POC Whole Blood Glucose 211H 11/25/20 05:40: POC Whole Blood Glucose [Pending] Height (Feet): 6 Height (Inches): 1.00 Weight (Pounds): 200 General Appearance: no apparent distress EENT: normal ENT inspection Neck: supple Cardiovascular: regular rhythm Respiratory/Chest: decreased breath sounds Abdomen: hypoactive bowel sounds Extremities: non-tender Assessment/Plan Problem List: (1) Cirrhosis ICD Codes: K74.60 - Unspecified cirrhosis of liver SNOMED: 58479036 (2) Hepatic encephalopathy ICD Codes: K72.90 - Hepatic failure, unspecified without coma; R65.20 - Severe sepsis without septic shock SNOMED: 77001686 (3) Hypokalemia ICD Codes: E87.6 - Hypokalemia; R65.20 - Severe sepsis without septic shock SNOMED: 68809538 (4) Ascites ICD Codes: R18.8 - Other ascites SNOMED: 875689164 (5) Severe sepsis ICD Codes: A41.9 - Sepsis, unspecified organism; R65.20 - Severe sepsis without septic shock SNOMED: 23982542 (6) AMS (altered mental status) ICD Codes: R41.82 - Altered mental status, unspecified SNOMED: 199258526 Assessment/Plan: Assessment/Plan Problem List: (1) Cirrhosis ICD Codes: K74.60 - Unspecified cirrhosis of liver SNOMED: 67862083 (2) Hepatic encephalopathy ICD Codes: K72.90 - Hepatic failure, unspecified without coma; R65.20 - Severe sepsis without septic shock SNOMED: 29535853 (3) Hypokalemia ICD Codes: E87.6 - Hypokalemia; R65.20 - Severe sepsis without septic shock SNOMED: 59137373 (4) Ascites ICD Codes: R18.8 - Other ascites SNOMED: 658176988 (5) Severe sepsis ICD Codes: A41.9 - Sepsis, unspecified organism; R65.20 - Severe sepsis without septic shock SNOMED: 04436748 (6) AMS (altered mental status) ICD Codes: R41.82 - Altered mental status, unspecified SNOMED: 079984047 Assessment/Plan: lactulose PPI f/u ammonia level fu hepatitis panel>>> neg s/p repeat paracentesis x3 ordered repeat paracentesis for tomorrow lasix aldactone repeat labs Mejia Encarnacion MD Nov 25, 2020 08:42
[2020-11-25 11:57] VITALS: BP 115/69
--- NOTE | 2020-11-25 12:25 | Surgery Progress Note ---
Surgery Progress Note Subjective Symptoms: improved, pain absent, tolerating diet, passing flatus Objective Last 24 Hour Vital Signs Date Time Temp Pulse Resp B/P (MAP) Pulse Ox O2 Delivery O2 Flow Rate FiO2 11/25/20 11:57 97.9 99 20 115/69 (84) 98 11/25/20 09:00 Nasal Cannula 3.0 11/25/20 08:14 94 Nasal Cannula 3.0 32 11/25/20 08:09 97.6 11/25/20 08:00 97.6 98 19 125/81 (96) 95 11/25/20 04:00 97.8 104 20 125/77 (93) 96 11/25/20 00:00 98.4 103 20 121/78 (92) 97 11/24/20 21:00 Nasal Cannula 3.0 11/24/20 20:00 97.7 106 18 120/70 (87) 96 11/24/20 19:21 94 Nasal Cannula 3.0 32 11/24/20 16:00 97.7 113 19 121/82 (95) 93 I&O Intake and Output 11/24/20 11/25/20 19:00 07:00 Intake Total 840 ml Output Total 600 ml Balance 840 ml -600 ml Intake Oral 840 ml Other 600 ml # Voids 3 # Bowel Movements 2 5 Cardiovascular: RSR Respiratory: clear, decreased breath sounds Abdomen: soft, flat, non-tender, present bowel sounds, non-distended Extremities: no edema, no tenderness, no cyanosis Laboratory Tests Test 11/24/20 16:27 11/24/20 20:14 11/25/20 05:40 11/25/20 11:37 POC Whole Blood Glucose 117 MG/DL (74-106) H 211 MG/DL (74-106) H Pending Pending Plan Problems: (1) Deep tissue injury Assessment & Plan: Pt presented on admission with DTPI Thoracic Spine(L)1.8cm x (W)1cm. Base of Pressure Injury is purpuric with surrounding non-blanchable erythema. Pt complained of tenderness at site. Non-Blanchable erythema without induration noted to Sacrum,R and L Gluteal cheeks including Bilat Ischial tuberosities. Rocker bottom foot noted to Both R and L feet. Both heels are callused,dry and easily blanchable. Tx.Plan: Apply Cavilon Skin Barrier To Thoracic DTPI. Cover with Optifoam drsg. Change every 3 days and prn. Apply Moisture Barrier Paste to Sacrum. Cover with Optifoam drsg. Change every 3 days and prn. Apply Cavilon Skin Barrier to R and L gluteal cheeks and Bilat Ischial tuberosities with each Incontinence care. Reposition at least every 2Hours or as tolerated. Off-load heels with pillow. (2) Hepatic encephalopathy (3) Hypokalemia (4) Ascites (5) Severe sepsis (6) Cirrhosis Assessment & Plan: distended again may need repeat para gi input There is compressive atelectasis right lower lobe. Small right effusion noted. Right hemidiaphragm is elevated. There is a large amount of ascites. Slight nodularity of the hepatic contour noted suggestive of underlying cirrhotic changes. Spleen contains some scattered granulomas. Gallbladder is isodense to liver likely containing tumefactive sludge. The pancreas is unremarkable. Adrenals are normal in morphology. The kidneys are normal in size, shape and axis. Small bowel loops are nondistended. The colon is also nondistended with average amount of stool. The appendix is not visualized. There is no free air. No pathologic adenopathy demonstrated. Urinary bladder appears unremarkable. Degenerative changes of the lumbar spine noted. IMPRESSION: CIRRHOSIS WITH LARGE AMOUNT OF ASCITES. SPLENIC GRANULOMAS. SLUDGE IN THE GALLBLADDER. SMALL RIGHT PLEURAL EFFUSION WITH COMPRESSIVE ATELECTASIS RIGHT LOWER LOBE. ELEVATED RIGHT HEMIDIAPHRAGM. (7) AMS (altered mental status) (8) Electrolyte imbalance (9) Renal failure (ARF), acute on chronic (10) Anemia (11) HTN (hypertension) (12) DMII (diabetes mellitus, type 2) Theodore Alves Nov 25, 2020 12:25
--- NOTE | 2020-11-25 13:12 | Nephrology Progress Note ---
Assessment/Plan Problem List: (1) Renal failure (ARF), acute on chronic (2) Electrolyte imbalance (3) Hypokalemia (4) Cirrhosis (5) DMII (diabetes mellitus, type 2) (6) Anemia (7) HTN (hypertension) Assessment Renal failure most likely acute on chronic Electrolyte imbalances, hypokalemia Sepsis Hepatic encephalopathy, ascites, fatty liver Anemia History of EtOH abuse, history of tobacco abuse, history of drug abuse Diabetes mellitus type 2 Hypertension Lymphopenia, leukocytosis, hypoxia Plan November 25: No CHEM panel drawn today. Patient clinically appears to be stable. Will continue to monitor electrolytes and renal parameters while in- house. Per orders. November 24: Labs reviewed. Renal parameters stable. Continues to have ascites requiring periodic Paracentesis. Not much to add from renal standpoint to view. Medication list reviewed. November 23: No CHEM panel drawn today. Clinically stable. Meds reviewed. Continue per current regimen. Check lab tomorrow. November 22: Labs reviewed. Electrolytes reasonably well-maintained. Continue per current treatment plan. November 21: Labs reviewed. Abnormal electrolytes addressed. Neutra-Phos discontinued. Continue per current management. November 20: Labs reviewed. Renal parameters stable. Massive ascites and GI discomfort persists. Medication list reviewed. November 19: Labs reviewed. Serum sodium 133. Normal saline 500 cc bolus given. Continue per consultants. November 18: Labs reviewed. Abnormal electrolytes addressed. Continue per consultants November 17: Labs reviewed. Renal parameters stable. Medication list reviewed. On Lasix and Aldactone. We will continue to monitor blood chemistries and electrolytes. November 16: Labs reviewed. Electrolytes within normal limit now. Continue her current management. November 15: Labs reviewed. Low magnesium addressed. Continue per current management. November 14: Labs reviewed. Renal parameters are stable continue per current management. Vitamin D supplement given. November 13: Labs reviewed. Normal renal parameters. Abnormal electrolytes not ed and addressed. Vitamin D level results still pending November 12: Labs reviewed. Serum creatinine now within normal limits. Much improved from renal standpoint of view. November 11: Labs reviewed. Serum creatinine 1.6. Stable from renal standpoint reviewed. November 10: Labs reviewed. Serum creatinine lowered to 1.9. Continue to monitor renal parameters. Magnesium supplement ordered. November 09: No CHEM panel drawn today. Will DC Hernandez due to pain in the urethra. We will continue to monitor renal parameters. Continue per consultants. November 08: Labs reviewed. Serum creatinine 2.3 unchanged. Electrolytes within normal limit. Continue per consultants. November 07: Labs reviewed. Serum creatinine down to 2.3. Continue to monitor electrolytes. Low magnesium addressed. November 06: Labs reviewed. Serum creatinine 2.5 unchanged. Continue per consultants. November 05: Labs reviewed. Serum creatinine plateauing. Status quo. Electrolyte acceptable. Now on oxygen by cannula. Continue per consultants. November 04 labs reviewed. Patient full code. On Venturi mask. Low potassium addressed. Serum creatinine rising. Continue to monitor renal parameters. Allopurinol initiated November 03: Labs reviewed. Medication list reviewed. Abnormal electrolyte addressed. Continue monitor renal parameters. Continue per consultants. Previously: Trial of 3% saline and albumin bolus Potassium supplement Monitor renal parameters, ammonia, electrolytes ordered Subjective ROS Limited/Unobtainable: No Constitutional: Reports: malaise, weakness Objective Objective Last 24 Hour Vital Signs Date Time Temp Pulse Resp B/P (MAP) Pulse Ox O2 Delivery O2 Flow Rate FiO2 11/25/20 11:57 97.9 99 20 115/69 (84) 98 11/25/20 09:00 Nasal Cannula 3.0 11/25/20 08:14 94 Nasal Cannula 3.0 32 11/25/20 08:09 97.6 11/25/20 08:00 97.6 98 19 125/81 (96) 95 11/25/20 04:00 97.8 104 20 125/77 (93) 96 11/25/20 00:00 98.4 103 20 121/78 (92) 97 11/24/20 21:00 Nasal Cannula 3.0 11/24/20 20:00 97.7 106 18 120/70 (87) 96 11/24/20 19:21 94 Nasal Cannula 3.0 32 11/24/20 16:00 97.7 113 19 121/82 (95) 93 Intake and Output 11/24/20 11/25/20 19:00 07:00 Intake Total 840 ml Output Total 600 ml Balance 840 ml -600 ml Intake Oral 840 ml Other 600 ml # Voids 3 # Bowel Movements 2 5 Current Medications Medications (Trade) Dose Ordered Sig/Kylah Route PRN Reason Start Time Stop Time Status Last Admin Dose Admin Acetaminophen (Tylenol) 500 mg Q6H PRN ORAL Mild Pain 11/02/20 08:30 12/02/20 08:29 11/23/20 17:17 Acetaminophen (Tylenol) 500 mg Q6H PRN ORAL fever > 100.2 11/02/20 08:45 12/02/20 08:44 Acetaminophen/ Hydrocodone Bitart ([place] 5/325) 1 tab Q6H PRN ORAL Severe Pain (Pain Scale 7-10) 11/24/20 19:00 12/01/20 18:59 11/25/20 07:39 Allopurinol (Zyloprim) 200 mg DAILY ORAL 11/04/20 15:00 12/04/20 14:59 11/25/20 07:45 Clobetasol Propionate (Temovate) 1 applic TWICE A DAY TOPIC 11/21/20 13:30 02/19/21 13:29 11/25/20 07:50 Dextrose (Dextrose 50%) 25 ml Q30M PRN IV Hypoglycemia 11/01/20 18:30 01/30/21 18:29 Dextrose (Dextrose 50%) 50 ml Q30M PRN IV Hypoglycemia 11/01/20 18:30 01/30/21 18:29 Folic Acid (Folate) 3 mg DAILY ORAL 11/03/20 13:15 12/03/20 13:14 11/25/20 07:47 Furosemide (Lasix) 20 mg DAILY IV 11/13/20 10:00 12/13/20 09:59 11/25/20 07:47 Insulin Aspart (NovoLOG) BEFORE MEALS AND HS SUBQ 11/01/20 21:00 01/30/21 20:59 11/25/20 12:43 Lactulose (Cephulac) 20 gm BID ORAL 11/20/20 09:00 12/20/20 08:59 11/25/20 07:47 Magnesium Oxide (Mag-Ox 400mg) 400 mg THREE TIMES A DAY ORAL 11/13/20 13:00 12/13/20 12:59 11/25/20 12:41 Midodrine (Pro-Amatine) 10 mg Q8HR ORAL 11/02/20 14:00 01/31/21 13:59 11/22/20 13:25 Pantoprazole (Protonix) 40 mg DAILY ORAL 11/14/20 09:00 12/14/20 08:59 11/25/20 07:45 Spironolactone (Aldactone) 100 mg DAILY ORAL 11/16/20 09:00 12/16/20 08:59 11/25/20 07:46 Vitamin D (Vitamin D) 5,000 unit DAILY ORAL 11/16/20 09:00 12/16/20 08:59 11/25/20 07:45 Laboratory Tests 11/24/20 16:27: POC Whole Blood Glucose 117H 11/24/20 20:14: POC Whole Blood Glucose 211H 11/25/20 05:40: POC Whole Blood Glucose [Pending] 11/25/20 11:37: POC Whole Blood Glucose [Pending] Height (Feet): 6 Height (Inches): 1.00 Weight (Pounds): 200 General Appearance: no apparent distress Cardiovascular: tachycardia Respiratory/Chest: decreased breath sounds Abdomen: distended Kalin Pozo MD Nov 25, 2020 13:12
--- NOTE | 2020-11-25 15:23 | Internal Med Progress Note ---
Subjective Date of Service: Nov 25, 2020 Physician Name Case,Jered Attending Physician Ramon Coombs MD Current Medications Medications (Trade) Dose Ordered Sig/Kylah Route PRN Reason Start Time Stop Time Status Last Admin Dose Admin Acetaminophen (Tylenol) 500 mg Q6H PRN ORAL Mild Pain 11/02/20 08:30 12/02/20 08:29 11/23/20 17:17 Acetaminophen (Tylenol) 500 mg Q6H PRN ORAL fever > 100.2 11/02/20 08:45 12/02/20 08:44 Acetaminophen/ Hydrocodone Bitart ([place] 5/325) 1 tab Q6H PRN ORAL Severe Pain (Pain Scale 7-10) 11/24/20 19:00 12/01/20 18:59 11/25/20 07:39 Allopurinol (Zyloprim) 200 mg DAILY ORAL 11/04/20 15:00 12/04/20 14:59 11/25/20 07:45 Clobetasol Propionate (Temovate) 1 applic TWICE A DAY TOPIC 11/21/20 13:30 02/19/21 13:29 11/25/20 07:50 Dextrose (Dextrose 50%) 25 ml Q30M PRN IV Hypoglycemia 11/01/20 18:30 01/30/21 18:29 Dextrose (Dextrose 50%) 50 ml Q30M PRN IV Hypoglycemia 11/01/20 18:30 01/30/21 18:29 Folic Acid (Folate) 3 mg DAILY ORAL 11/03/20 13:15 12/03/20 13:14 11/25/20 07:47 Furosemide (Lasix) 20 mg DAILY IV 11/13/20 10:00 12/13/20 09:59 11/25/20 07:47 Insulin Aspart (NovoLOG) BEFORE MEALS AND HS SUBQ 11/01/20 21:00 01/30/21 20:59 11/25/20 12:43 Lactulose (Cephulac) 20 gm BID ORAL 11/20/20 09:00 12/20/20 08:59 11/25/20 07:47 Magnesium Oxide (Mag-Ox 400mg) 400 mg THREE TIMES A DAY ORAL 11/13/20 13:00 12/13/20 12:59 11/25/20 12:41 Midodrine (Pro-Amatine) 10 mg Q8HR ORAL 11/02/20 14:00 01/31/21 13:59 11/22/20 13:25 Pantoprazole (Protonix) 40 mg DAILY ORAL 11/14/20 09:00 12/14/20 08:59 11/25/20 07:45 Spironolactone (Aldactone) 100 mg DAILY ORAL 11/16/20 09:00 12/16/20 08:59 11/25/20 07:46 Vitamin D (Vitamin D) 5,000 unit DAILY ORAL 11/16/20 09:00 12/16/20 08:59 11/25/20 07:45 Allergies: Coded Allergies: No Known Allergies (Unverified , 10/02/16) ROS Limited/Unobtainable: No Constitutional: Reports: no symptoms HEENT: Reports: no symptoms Cardiovascular: Reports: no symptoms Respiratory: Reports: no symptoms Gastrointestinal/Abdominal: Reports: no symptoms Genitourinary: Reports: no symptoms Neurologic/Psychiatric: Reports: no symptoms Subjective 60 YO M with history of alcohol dependence admitted with shortness of breath. Now respiratroy failure. Cover for Int Med-DR Coombs. S/P paracentesis 11/02/20; scheduled for repeat on 11/26/20 Objective Last Vital Signs Date Time Temp Pulse Resp B/P (MAP) Pulse Ox O2 Delivery O2 Flow Rate FiO2 11/25/20 11:57 97.9 99 20 115/69 (84) 98 11/25/20 09:00 Nasal Cannula 3.0 11/25/20 08:14 32 Laboratory Tests Test 11/24/20 16:27 11/24/20 20:14 11/25/20 05:40 11/25/20 11:37 POC Whole Blood Glucose 117 MG/DL (74-106) H 211 MG/DL (74-106) H 210 MG/DL (74-106) H 141 MG/DL (74-106) H Intake and Output 11/24/20 11/25/20 19:00 07:00 Intake Total 840 ml Output Total 600 ml Balance 840 ml -600 ml Intake Oral 840 ml Other 600 ml # Voids 3 # Bowel Movements 2 5 Objective Objective General: No acute distress, awake and alert HEENT: NCAT, sclera anicteric, PERRL, EOMI. Neck: Supple, no significant jugular venous distention, Lungs: Nasal canula; Fair inspiratory effort, , no Wheeze or Rales. Heart: Regular rate and rhythm, normal S1/S2, no murmurs Abdomen: soft, nontender, +distended. positive fluid shift, bowel sound present. / Rectal: Refused and deferred. Extremities: No Cyanosis , clubbing or edema. Neuro: A&O x 3, Able to move all extremities Skin: warm, no rash Assessment/Plan Assessment/Plan Assessment/Plan Assessment/Plan Sepsis Acute Hypoxia on BiPAP >> NRB mask >> venturi mask>>nasal canula alcohol abuse Liver Cirrhosis, Fatty liver Massive ascites renal failure DM2 HTN Plan: ABX=S/P vanco and Zosyn High volume paracentesis, COVID PCR=Neg F/u BCx GI=Dr Encarnacion Nephrol=Dr Pozo S/P paracentesis 11/02/20; repeat scheduled for 11/26/20 Discharge planning Jered Case MD Nov 25, 2020 15:23
[2020-11-25 16:00] VITALS: BP 121/74
--- NOTE | 2020-11-25 18:00 | NUR ---
NURSE NOTES: med Clobethasone cream not available, according to pharmacist Marin it'll be available tomorrow. dr Evie flores.
--- NOTE | 2020-11-25 19:00 | NUR ---
NURSE NOTES: Received report from ROXI Adams. Pt is A&Ox4 in bed. Pt is aware of the paracentesis for tomorrow and that he is to be NPO after midnight. Call light within reach, side rails upx2, bed locked and in lowest position. Will continue to monitor.
--- NOTE | 2020-11-25 19:25 | NUR ---
NURSE HAND-OFF: Important Events on Shift:[diarrhea x4 d/t lactulose; scheduled paracenthesis tomorrow, obtained consent] Patient Status: [] Diet: [CCHO medium, NPO P MN] Pending Orders: [] Pending Results/Labs:[] Pending MD notification:[] Latest Vital Signs: Temperature 97.5 , Pulse 111 , B/P 121 /74 , Respiratory Rate 19 , O2 SAT 95 , Bi-pap, O2 Flow Rate 3.0 . Vital Sign Comment: [] Latest Childs Fall Score: 70 Fall Risk: High Risk Safety Measures: Call light Within Reach, Bed Alarm Zone 2, Side Rails Side Rails x3, Bed position Low and Locked. Fall Precautions: Yellow Socks Yellow Gown Door Sign Patient Fall Education Report given to [RN Raul Méndez].
[2020-11-25 20:00] VITALS: BP 133/85
--- NOTE | 2020-11-25 20:30 | Cardiology Report ---
APPROVED REPORT EKG Measurement Heart [id number] <Conclusion> Sinus tachycardia Cannot rule out Anterior infarct, age undetermined Prolonged QT Abnormal ECG
[2020-11-26] VITALS (7 sets, daily range): BP systolic 104–130; BP diastolic 67–78
[2020-11-26] MEDS: Midodrine 10mg tab ORAL SCH ×3 (05:24→21:57)
[2020-11-26] MEDS: NovoLOG Insulin Flexpen SUBQ SCH ×4 (06:11→20:52)
--- NOTE | 2020-11-26 06:31 | General Progress Note ---
Subjective ROS Limited/Unobtainable: Yes Allergies: Coded Allergies: No Known Allergies (Unverified , 10/02/16) Objective Last 24 Hour Vital Signs Date Time Temp Pulse Resp B/P (MAP) Pulse Ox O2 Delivery O2 Flow Rate FiO2 11/26/20 04:00 98.8 101 18 130/78 (95) 97 11/26/20 00:00 98.4 107 18 116/76 (89) 96 11/25/20 21:00 Nasal Cannula 3.0 11/25/20 20:05 95 Nasal Cannula 3.0 32 11/25/20 20:00 97.9 106 18 133/85 (101) 96 11/25/20 16:00 97.5 111 19 121/74 (90) 95 11/25/20 11:57 97.9 99 20 115/69 (84) 98 11/25/20 09:00 Nasal Cannula 3.0 11/25/20 08:14 94 Nasal Cannula 3.0 32 11/25/20 08:09 97.6 11/25/20 08:00 97.6 98 19 125/81 (96) 95 Intake and Output 11/25/20 11/26/20 19:00 07:00 Intake Total 840 ml 480 ml Output Total 400 ml 600 ml Balance 440 ml -120 ml Intake Oral 840 ml 480 ml Output Urine Total 400 ml 600 ml # Voids 1 1 # Bowel Movements 4 Laboratory Tests 11/25/20 11:37: POC Whole Blood Glucose 141H 11/25/20 16:33: POC Whole Blood Glucose [Pending] 11/25/20 20:15: POC Whole Blood Glucose 200H 11/26/20 05:43: POC Whole Blood Glucose 102 Height (Feet): 6 Height (Inches): 1.00 Weight (Pounds): 200 General Appearance: no apparent distress EENT: normal ENT inspection Neck: supple Cardiovascular: normal rate Respiratory/Chest: decreased breath sounds Abdomen: normal bowel sounds, non tender, soft Extremities: non-tender Assessment/Plan Problem List: (1) Cirrhosis ICD Codes: K74.60 - Unspecified cirrhosis of liver SNOMED: 86832300 (2) Hepatic encephalopathy ICD Codes: K72.90 - Hepatic failure, unspecified without coma; R65.20 - Severe sepsis without septic shock SNOMED: 03122882 (3) Hypokalemia ICD Codes: E87.6 - Hypokalemia; R65.20 - Severe sepsis without septic shock SNOMED: 28912749 (4) Ascites ICD Codes: R18.8 - Other ascites SNOMED: 755000749 (5) Severe sepsis ICD Codes: A41.9 - Sepsis, unspecified organism; R65.20 - Severe sepsis without septic shock SNOMED: 02485702 (6) AMS (altered mental status) ICD Codes: R41.82 - Altered mental status, unspecified SNOMED: 903586842 Assessment/Plan: Assessment/Plan Problem List: (1) Cirrhosis ICD Codes: K74.60 - Unspecified cirrhosis of liver SNOMED: 10661599 (2) Hepatic encephalopathy ICD Codes: K72.90 - Hepatic failure, unspecified without coma; R65.20 - Severe sepsis without septic shock SNOMED: 33654988 (3) Hypokalemia ICD Codes: E87.6 - Hypokalemia; R65.20 - Severe sepsis without septic shock SNOMED: 26098383 (4) Ascites ICD Codes: R18.8 - Other ascites SNOMED: 605370088 (5) Severe sepsis ICD Codes: A41.9 - Sepsis, unspecified organism; R65.20 - Severe sepsis without septic shock SNOMED: 18106447 (6) AMS (altered mental status) ICD Codes: R41.82 - Altered mental status, unspecified SNOMED: 849216731 Assessment/Plan: lactulose PPI f/u ammonia level fu hepatitis panel>>> neg s/p repeat paracentesis x3 lasix aldactone repeat labs Mejia Encarnacion MD Nov 26, 2020 06:31
--- NOTE | 2020-11-26 07:12 | NUR ---
NURSE HAND-OFF: Important Events on Shift: Patient slept most of the night Patient Status: calm Diet: CCHO medium, NPO until paracentesis Pending Orders: Pending Results/Labs: Pending MD notification: Latest Vital Signs: Temperature 98.8 , Pulse 101 , B/P 130 /78 , Respiratory Rate 18 , O2 SAT 97 , Bi-pap, O2 Flow Rate 3.0 . Vital Sign Comment: VSS Latest Childs Fall Score: 70 Fall Risk: High Risk Safety Measures: Call light Within Reach, Bed Alarm Zone 2, Side Rails Side Rails x3, Bed position Low and Locked. Fall Precautions: Yellow Socks Yellow Gown Door Sign Patient Fall Education Report given to ROXI Sheriff.
--- NOTE | 2020-11-26 07:20 | NUR ---
NURSE NOTES: Received report from ROXI Lange. Rounding done with outgoing nurse. Pt is alseep. No SOB noted via NC 3L/min. Rt FA IV is in placed. SCD is on bilateral extremity. Bed in lowest position, call light within reach. Will continue to monitor.
[2020-11-26 07:21] LABS: BASOPHILS % (AUTO) 1.1 % (0.0-2.0); EOSINOPHILS % (AUTO) 1.3 % (0.0-3.0); HEMATOCRIT 28.7 % (42.0-52.0); HEMOGLOBIN 9.2 G/DL (14.2-18.0); MEAN CORPUSCULAR VOLUME 107 FL (80-99); MONOCYTES % (AUTO) 6.4 % (1.0-10.0); NEUTROPHILS % (AUTO) 84.2 % (45.0-75.0); PLATELET COUNT 266 K/UL (150-450); RED BLOOD COUNT 2.68 M/UL (4.70-6.10); RED CELL DISTRIBUTION WIDTH 18.4 % (11.6-14.8); WHITE BLOOD COUNT 15.3 K/UL (4.8-10.8)
[2020-11-26 07:29] LABS: ALANINE AMINOTRANSFERASE 12 U/L (12-78); ALBUMIN 1.7 G/DL (3.4-5.0); ALBUMIN/GLOBULIN RATIO 0.3 (1.0-2.7); ALKALINE PHOSPHATASE 129 U/L (46-116); ANION GAP 2 mmol/L (5-15); ASPARTATE AMINO TRANSFERASE 29 U/L (15-37); BILIRUBIN,TOTAL 0.7 MG/DL (0.2-1.0); BLOOD UREA NITROGEN 17 mg/dL (7-18); CALCIUM 9.2 MG/DL (8.5-10.1); CARBON DIOXIDE 35 MMOL/L (21-32); CHLORIDE 99 MMOL/L (98-107); POTASSIUM 4.1 MMOL/L (3.5-5.1); SODIUM 136 MMOL/L (136-145)
[2020-11-26 07:40] LABS: PHOSPHORUS 4.1 MG/DL (2.5-4.9)
[2020-11-26] MEDS: CLOBETASOL 0.05% TOPIC SCH ×3 (09:00→17:11)
[2020-11-26] MEDS: Vitamin D 1000 units Tab ORAL SCH ×2 (09:00→13:55)
--- NOTE | 2020-11-26 09:14 | Infectious Diseases Prog Note ---
Assessment/Plan 60yo M with: Sepsis Afebrile Hypoxia on BiPAP >> NRB mask >> venti mask Leukocytosis to 14, improving Lymphopenia 11/01 BCx NTD COVID PCR neg CXR: Elevated right hemidiaphragm. Possible right basilar airspace disease and right effusion. CTH: No acute process EtOH abuse Cirrhosis, Fatty liver Massive ascites Elevated AST to 48 Acute hep panel neg 11/01 CT A/P: CIRRHOSIS WITH LARGE AMOUNT OF ASCITES. SPLENIC GRANULOMAS. SLUDGE IN THE GALLBLADDER. SMALL RIGHT PLEURAL EFFUSION WITH COMPRESSIVE ATELECTASIS RIGHT LOWER LOBE. ELEVATED RIGHT HEMIDIAPHRAGM. 11/02 Paracentesis, 10.2L removed 838 RBC, 142 WBC, 2%PMN, 94%Lee's Cx - NTD DAVIDE vs CKD, Cr 2.4, improving HIV screen neg PMH: EtOH abuse, stopped drinking in Sep 2020 Fatty liver DM2 HTN Plan: Cont to monitor off abx Trend WBC if increasing again tomorrow will need to start abx 11/11 SP Zosyn #10 11/03 SP vanco #2 Monitor CBC/CMP Monitor temp curve, hemodynamics Monitor resp status D/w RN Thank you for this consult. [facility] will continue to follow. Subjective Allergies: Coded Allergies: No Known Allergies (Unverified , 10/02/16) Afebrile Mild Leukocytosis up to 16 Abd distended Objective Last 24 Hour Vital Signs Date Time Temp Pulse Resp B/P (MAP) Pulse Ox O2 Delivery O2 Flow Rate FiO2 11/26/20 08:00 97.2 96 20 107/71 (83) 99 11/26/20 04:00 98.8 101 18 130/78 (95) 97 11/26/20 00:00 98.4 107 18 116/76 (89) 96 11/25/20 21:00 Nasal Cannula 3.0 11/25/20 20:05 95 Nasal Cannula 3.0 32 11/25/20 20:00 97.9 106 18 133/85 (101) 96 11/25/20 16:00 97.5 111 19 121/74 (90) 95 11/25/20 11:57 97.9 99 20 115/69 (84) 98 Height (Feet): 6 Height (Inches): 1.00 Weight (Pounds): 200 Gen: NAD, on 3L O2 HEENT: NCAT, EOMI Pulm: BL chest rise Abd: Distended, soft, +fluid wave Ext: No c/c/e Neuro: Awake, interactive Laboratory Tests Test 11/25/20 11:37 11/25/20 16:33 11/25/20 20:15 11/26/20 05:20 POC Whole Blood Glucose 141 MG/DL (74-106) H Pending 200 MG/DL (74-106) H White Blood Count 15.3 K/UL (4.8-10.8) H Red Blood Count 2.68 M/UL (4.70-6.10) L Hemoglobin 9.2 G/DL (14.2-18.0) L Hematocrit 28.7 % (42.0-52.0) L Mean Corpuscular Volume 107 FL (80-99) H Mean Corpuscular Hemoglobin 34.4 PG (27.0-31.0) H Mean Corpuscular Hemoglobin Concent 32.1 G/DL (32.0-36.0) Red Cell Distribution Width 18.4 % (11.6-14.8) H Platelet Count 266 K/UL (150-450) Mean Platelet Volume 5.3 FL (6.5-10.1) L Neutrophils (%) (Auto) 84.2 % (45.0-75.0) H Lymphocytes (%) (Auto) 7.0 % (20.0-45.0) L Monocytes (%) (Auto) 6.4 % (1.0-10.0) Eosinophils (%) (Auto) 1.3 % (0.0-3.0) Basophils (%) (Auto) 1.1 % (0.0-2.0) Sodium Level 136 MMOL/L (136-145) Potassium Level 4.1 MMOL/L (3.5-5.1) Chloride Level 99 MMOL/L (98-107) Carbon Dioxide Level 35 MMOL/L (21-32) H Anion Gap 2 mmol/L (5-15) L Blood Urea Nitrogen 17 mg/dL (7-18) Creatinine 1.0 MG/DL (0.55-1.30) Estimat Glomerular Filtration Rate > 60 mL/min (>60) Glucose Level 99 MG/DL (74-106) Calcium Level 9.2 MG/DL (8.5-10.1) Phosphorus Level 4.1 MG/DL (2.5-4.9) Magnesium Level 2.0 MG/DL (1.8-2.4) Total Bilirubin 0.7 MG/DL (0.2-1.0) Aspartate Amino Transf (AST/SGOT) 29 U/L (15-37) Alanine Aminotransferase (ALT/SGPT) 12 U/L (12-78) Alkaline Phosphatase 129 U/L (46-116) H C-Reactive Protein, Quantitative 9.2 mg/dL (0.00-0.90) H Pro-B-Type Natriuretic Peptide 561 pg/mL (0-125) H Total Protein 7.3 G/DL (6.4-8.2) Albumin 1.7 G/DL (3.4-5.0) L Globulin 5.6 g/dL Albumin/Globulin Ratio 0.3 (1.0-2.7) L Test 11/26/20 05:43 POC Whole Blood Glucose 102 MG/DL (74-106) Current Medications Medications (Trade) Dose Ordered Sig/Kylah Route PRN Reason Start Time Stop Time Status Last Admin Dose Admin Acetaminophen (Tylenol) 500 mg Q6H PRN ORAL Mild Pain 11/02/20 08:30 12/02/20 08:29 11/23/20 17:17 Acetaminophen (Tylenol) 500 mg Q6H PRN ORAL fever > 100.2 11/02/20 08:45 12/02/20 08:44 Acetaminophen/ Hydrocodone Bitart ([place] 5/325) 1 tab Q6H PRN ORAL Severe Pain (Pain Scale 7-10) 11/24/20 19:00 12/01/20 18:59 11/25/20 20:20 Allopurinol (Zyloprim) 200 mg DAILY ORAL 11/04/20 15:00 12/04/20 14:59 11/25/20 07:45 Clobetasol Propionate (Temovate) 1 applic TWICE A DAY TOPIC 11/21/20 13:30 02/19/21 13:29 11/25/20 07:50 Dextrose (Dextrose 50%) 25 ml Q30M PRN IV Hypoglycemia 11/01/20 18:30 01/30/21 18:29 Dextrose (Dextrose 50%) 50 ml Q30M PRN IV Hypoglycemia 11/01/20 18:30 01/30/21 18:29 Folic Acid (Folate) 3 mg DAILY ORAL 11/03/20 13:15 12/03/20 13:14 11/25/20 07:47 Furosemide (Lasix) 20 mg DAILY IV 11/13/20 10:00 12/13/20 09:59 11/25/20 07:47 Insulin Aspart (NovoLOG) BEFORE MEALS AND HS SUBQ 11/01/20 21:00 01/30/21 20:59 11/25/20 20:24 Lactulose (Cephulac) 20 gm BID ORAL 11/20/20 09:00 12/20/20 08:59 11/25/20 07:47 Magnesium Oxide (Mag-Ox 400mg) 400 mg THREE TIMES A DAY ORAL 11/13/20 13:00 12/13/20 12:59 11/25/20 18:11 Midodrine (Pro-Amatine) 10 mg Q8HR ORAL 11/02/20 14:00 01/31/21 13:59 11/22/20 13:25 Pantoprazole (Protonix) 40 mg DAILY ORAL 11/14/20 09:00 12/14/20 08:59 11/25/20 07:45 Spironolactone (Aldactone) 100 mg DAILY ORAL 11/16/20 09:00 12/16/20 08:59 11/25/20 07:46 Vitamin D (Vitamin D) 5,000 unit DAILY ORAL 11/16/20 09:00 12/16/20 08:59 11/25/20 07:45 Nazario Banks MD Nov 26, 2020 09:14
[2020-11-26] MEDS: Spironolactone 50mg tab ORAL SCH (09:41)
[2020-11-26] MEDS: Lactulose 20gm/30ml UDC ORAL SCH ×2 (09:41→17:10)
[2020-11-26] MEDS: Magnesium Oxide 400mg tab ORAL SCH ×3 (09:41→17:08)
[2020-11-26] MEDS: Allopurinol 100mg Tab ORAL SCH (09:41)
--- NOTE | 2020-11-26 09:46 | Surgery Progress Note ---
Surgery Progress Note Subjective Additional Comments plan repeat para no n/v not moving much because of abd distention erythema on sacrum stable Objective Last 24 Hour Vital Signs Date Time Temp Pulse Resp B/P (MAP) Pulse Ox O2 Delivery O2 Flow Rate FiO2 11/26/20 08:00 97.2 96 20 107/71 (83) 99 11/26/20 04:00 98.8 101 18 130/78 (95) 97 11/26/20 00:00 98.4 107 18 116/76 (89) 96 11/25/20 21:00 Nasal Cannula 3.0 11/25/20 20:05 95 Nasal Cannula 3.0 32 11/25/20 20:00 97.9 106 18 133/85 (101) 96 11/25/20 16:00 97.5 111 19 121/74 (90) 95 11/25/20 11:57 97.9 99 20 115/69 (84) 98 I&O Intake and Output0 11/25/20 11/26/20 19:00 07:00 Intake Total 840 ml 480 ml Output Total 400 ml 600 ml Balance 440 ml -120 ml Intake Oral 840 ml 480 ml Output Urine Total 400 ml 600 ml # Voids 1 1 # Bowel Movements 4 Cardiovascular: RSR Respiratory: clear Abdomen: soft, distended, non-tender, present bowel sounds Extremities: no edema, no tenderness, no cyanosis Laboratory Tests Test 11/25/20 11:37 11/25/20 16:33 11/25/20 20:15 11/26/20 05:20 POC Whole Blood Glucose 141 MG/DL (74-106) H Pending 200 MG/DL (74-106) H White Blood Count 15.3 K/UL (4.8-10.8) H Red Blood Count 2.68 M/UL (4.70-6.10) L Hemoglobin 9.2 G/DL (14.2-18.0) L Hematocrit 28.7 % (42.0-52.0) L Mean Corpuscular Volume 107 FL (80-99) H Mean Corpuscular Hemoglobin 34.4 PG (27.0-31.0) H Mean Corpuscular Hemoglobin Concent 32.1 G/DL (32.0-36.0) Red Cell Distribution Width 18.4 % (11.6-14.8) H Platelet Count 266 K/UL (150-450) Mean Platelet Volume 5.3 FL (6.5-10.1) L Neutrophils (%) (Auto) 84.2 % (45.0-75.0) H Lymphocytes (%) (Auto) 7.0 % (20.0-45.0) L Monocytes (%) (Auto) 6.4 % (1.0-10.0) Eosinophils (%) (Auto) 1.3 % (0.0-3.0) Basophils (%) (Auto) 1.1 % (0.0-2.0) Sodium Level 136 MMOL/L (136-145) Potassium Level 4.1 MMOL/L (3.5-5.1) Chloride Level 99 MMOL/L (98-107) Carbon Dioxide Level 35 MMOL/L (21-32) H Anion Gap 2 mmol/L (5-15) L Blood Urea Nitrogen 17 mg/dL (7-18) Creatinine 1.0 MG/DL (0.55-1.30) Estimat Glomerular Filtration Rate > 60 mL/min (>60) Glucose Level 99 MG/DL (74-106) Calcium Level 9.2 MG/DL (8.5-10.1) Phosphorus Level 4.1 MG/DL (2.5-4.9) Magnesium Level 2.0 MG/DL (1.8-2.4) Total Bilirubin 0.7 MG/DL (0.2-1.0) Aspartate Amino Transf (AST/SGOT) 29 U/L (15-37) Alanine Aminotransferase (ALT/SGPT) 12 U/L (12-78) Alkaline Phosphatase 129 U/L (46-116) H C-Reactive Protein, Quantitative 9.2 mg/dL (0.00-0.90) H Pro-B-Type Natriuretic Peptide 561 pg/mL (0-125) H Total Protein 7.3 G/DL (6.4-8.2) Albumin 1.7 G/DL (3.4-5.0) L Globulin 5.6 g/dL Albumin/Globulin Ratio 0.3 (1.0-2.7) L Test 11/26/20 05:43 POC Whole Blood Glucose 102 MG/DL (74-106) Plan Problems: (1) Deep tissue injury Assessment & Plan: Pt presented on admission with DTPI Thoracic Spine(L)1.8cm x (W)1cm. Base of Pressure Injury is purpuric with surrounding non-blanchable erythema. Pt complained of tenderness at site. Non-Blanchable erythema without induration noted to Sacrum,R and L Gluteal cheeks including Bilat Ischial tuberosities. Rocker bottom foot noted to Both R and L feet. Both heels are callused,dry and easily blanchable. Tx.Plan: Apply Cavilon Skin Barrier To Thoracic DTPI. Cover with Optifoam drsg. Change every 3 days and prn. Apply Moisture Barrier Paste to Sacrum. Cover with Optifoam drsg. Change every 3 days and prn. Apply Cavilon Skin Barrier to R and L gluteal cheeks and Bilat Ischial tuberosities with each Incontinence care. Reposition at least every 2Hours or as tolerated. Off-load heels with pillow. (2) Hepatic encephalopathy (3) Hypokalemia (4) Ascites (5) Severe sepsis (6) Cirrhosis Assessment & Plan: distended again may need repeat para gi input There is compressive atelectasis right lower lobe. Small right effusion noted. Right hemidiaphragm is elevated. There is a large amount of ascites. Slight nodularity of the hepatic contour noted suggestive of underlying cirrhotic changes. Spleen contains some scattered granulomas. Gallbladder is isodense to liver likely containing tumefactive sludge. The pancreas is unremarkable. Adrenals are normal in morphology. The kidneys are normal in size, shape and axis. Small bowel loops are nondistended. The colon is also nondistended with average amount of stool. The appendix is not visualized. There is no free air. No pathologic adenopathy demonstrated. Urinary bladder appears unremarkable. Degenerative changes of the lumbar spine noted. IMPRESSION: CIRRHOSIS WITH LARGE AMOUNT OF ASCITES. SPLENIC GRANULOMAS. SLUDGE IN THE GALLBLADDER. SMALL RIGHT PLEURAL EFFUSION WITH COMPRESSIVE ATELECTASIS RIGHT LOWER LOBE. ELEVATED RIGHT HEMIDIAPHRAGM. (7) AMS (altered mental status) (8) Electrolyte imbalance (9) Renal failure (ARF), acute on chronic (10) Anemia (11) HTN (hypertension) (12) DMII (diabetes mellitus, type 2) Theodore Alves Nov 26, 2020 09:46
--- NOTE | 2020-11-26 13:46 | NUR ---
NURSE NOTES: Paracentesis was done. Pt is stable. Output: 7,000ml.
--- NOTE | 2020-11-26 14:06 | Pre-Procedure Note/Attestation ---
Pre-Procedure Note/Attestation Complete Prior to Procedure Planned Procedure: not applicable Procedure Narrative: us guided paracentesis Indications for Procedure Pre-Operative Diagnosis: ascites Attestation informed obtained from patient, this was verified prior to the procedure Elvis Stewart M.D. Nov 26, 2020 14:06
--- NOTE | 2020-11-26 14:58 | NUR ---
[employer] SI: AMS,ASCITES, S/P PARACENTESIS T. 97.4 HR 102 RR 20 B/P 123/71 WBC 15.3 CO2 35 PARACENTESIS 7 LITERS IS: LASIX IV LACTULOSE PO PROTONIX PO MED/SURG STATUS
[2020-11-26] MEDS: HYDROcodone/Acetamin 5/325 tab ORAL PRN ×2 (17:15→23:52)
--- NOTE | 2020-11-26 18:47 | Internal Med Progress Note ---
Subjective Date of Service: Nov 26, 2020 Physician Name CaseJered Attending Physician Ramon Coombs MD Current Medications Medications (Trade) Dose Ordered Sig/Kylah Route PRN Reason Start Time Stop Time Status Last Admin Dose Admin Acetaminophen (Tylenol) 500 mg Q6H PRN ORAL Mild Pain 11/02/20 08:30 12/02/20 08:29 11/23/20 17:17 Acetaminophen (Tylenol) 500 mg Q6H PRN ORAL fever > 100.2 11/02/20 08:45 12/02/20 08:44 Acetaminophen/ Hydrocodone Bitart ([place] 5/325) 1 tab Q6H PRN ORAL Severe Pain (Pain Scale 7-10) 11/24/20 19:00 12/01/20 18:59 11/26/20 17:15 Allopurinol (Zyloprim) 200 mg DAILY ORAL 11/04/20 15:00 12/04/20 14:59 11/26/20 09:41 Clobetasol Propionate (Temovate) 1 applic TWICE A DAY TOPIC 11/21/20 13:30 02/19/21 13:29 11/26/20 17:11 Dextrose (Dextrose 50%) 25 ml Q30M PRN IV Hypoglycemia 11/01/20 18:30 01/30/21 18:29 Dextrose (Dextrose 50%) 50 ml Q30M PRN IV Hypoglycemia 11/01/20 18:30 01/30/21 18:29 Folic Acid (Folate) 3 mg DAILY ORAL 11/03/20 13:15 12/03/20 13:14 11/26/20 09:41 Furosemide (Lasix) 20 mg DAILY IV 11/13/20 10:00 12/13/20 09:59 11/26/20 09:41 Insulin Aspart (NovoLOG) BEFORE MEALS AND HS SUBQ 11/01/20 21:00 01/30/21 20:59 11/26/20 17:08 Lactulose (Cephulac) 20 gm BID ORAL 11/20/20 09:00 12/20/20 08:59 11/26/20 17:10 Magnesium Oxide (Mag-Ox 400mg) 400 mg THREE TIMES A DAY ORAL 11/13/20 13:00 12/13/20 12:59 11/26/20 17:08 Midodrine (Pro-Amatine) 10 mg Q8HR ORAL 11/02/20 14:00 01/31/21 13:59 11/26/20 13:55 Pantoprazole (Protonix) 40 mg DAILY ORAL 11/14/20 09:00 12/14/20 08:59 11/26/20 09:41 Spironolactone (Aldactone) 100 mg DAILY ORAL 11/16/20 09:00 12/16/20 08:59 11/26/20 09:41 Vitamin D (Vitamin D) 5,000 unit DAILY ORAL 11/16/20 09:00 12/16/20 08:59 11/26/20 13:55 Allergies: Coded Allergies: No Known Allergies (Unverified , 10/02/16) ROS Limited/Unobtainable: No Constitutional: Reports: no symptoms HEENT: Reports: no symptoms Cardiovascular: Reports: no symptoms Respiratory: Reports: no symptoms Gastrointestinal/Abdominal: Reports: no symptoms Genitourinary: Reports: no symptoms Neurologic/Psychiatric: Reports: no symptoms Subjective 60 YO M with history of alcohol dependence admitted with shortness of breath. Now respiratroy failure. Cover for Int Med-DR Coombs. S/P paracentesis 11/02/20; scheduled for repeat on 11/26/20 Objective Last Vital Signs Date Time Temp Pulse Resp B/P (MAP) Pulse Ox O2 Delivery O2 Flow Rate FiO2 11/26/20 16:00 98.2 98 20 124/72 (89) 96 11/26/20 09:25 Nasal Cannula 3.0 32 Laboratory Tests Test 11/25/20 20:15 11/26/20 05:20 11/26/20 05:43 11/26/20 11:36 POC Whole Blood Glucose 200 MG/DL (74-106) H 102 MG/DL (74-106) 135 MG/DL (74-106) H White Blood Count 15.3 K/UL (4.8-10.8) H Red Blood Count 2.68 M/UL (4.70-6.10) L Hemoglobin 9.2 G/DL (14.2-18.0) L Hematocrit 28.7 % (42.0-52.0) L Mean Corpuscular Volume 107 FL (80-99) H Mean Corpuscular Hemoglobin 34.4 PG (27.0-31.0) H Mean Corpuscular Hemoglobin Concent 32.1 G/DL (32.0-36.0) Red Cell Distribution Width 18.4 % (11.6-14.8) H Platelet Count 266 K/UL (150-450) Mean Platelet Volume 5.3 FL (6.5-10.1) L Neutrophils (%) (Auto) 84.2 % (45.0-75.0) H Lymphocytes (%) (Auto) 7.0 % (20.0-45.0) L Monocytes (%) (Auto) 6.4 % (1.0-10.0) Eosinophils (%) (Auto) 1.3 % (0.0-3.0) Basophils (%) (Auto) 1.1 % (0.0-2.0) Sodium Level 136 MMOL/L (136-145) Potassium Level 4.1 MMOL/L (3.5-5.1) Chloride Level 99 MMOL/L (98-107) Carbon Dioxide Level 35 MMOL/L (21-32) H Anion Gap 2 mmol/L (5-15) L Blood Urea Nitrogen 17 mg/dL (7-18) Creatinine 1.0 MG/DL (0.55-1.30) Estimat Glomerular Filtration Rate > 60 mL/min (>60) Glucose Level 99 MG/DL (74-106) Calcium Level 9.2 MG/DL (8.5-10.1) Phosphorus Level 4.1 MG/DL (2.5-4.9) Magnesium Level 2.0 MG/DL (1.8-2.4) Total Bilirubin 0.7 MG/DL (0.2-1.0) Aspartate Amino Transf (AST/SGOT) 29 U/L (15-37) Alanine Aminotransferase (ALT/SGPT) 12 U/L (12-78) Alkaline Phosphatase 129 U/L (46-116) H C-Reactive Protein, Quantitative 9.2 mg/dL (0.00-0.90) H Pro-B-Type Natriuretic Peptide 561 pg/mL (0-125) H Total Protein 7.3 G/DL (6.4-8.2) Albumin 1.7 G/DL (3.4-5.0) L Globulin 5.6 g/dL Albumin/Globulin Ratio 0.3 (1.0-2.7) L Test 11/26/20 16:37 POC Whole Blood Glucose 144 MG/DL (74-106) H Intake and Output 11/25/20 11/26/20 19:00 07:00 Intake Total 840 ml 480 ml Output Total 400 ml 600 ml Balance 440 ml -120 ml Intake Oral 840 ml 480 ml Output Urine Total 400 ml 600 ml # Voids 1 1 # Bowel Movements 4 Objective Objective General: No acute distress, awake and alert HEENT: NCAT, sclera anicteric, PERRL, EOMI. Neck: Supple, no significant jugular venous distention, Lungs: Nasal canula; Fair inspiratory effort, , no Wheeze or Rales. Heart: Regular rate and rhythm, normal S1/S2, no murmurs Abdomen: soft, nontender, +distended. positive fluid shift, bowel sound present. / Rectal: Refused and deferred. Extremities: No Cyanosis , clubbing or edema. Neuro: A&O x 3, Able to move all extremities Skin: warm, no rash Assessment/Plan Assessment/Plan Assessment/Plan Assessment/Plan Sepsis Acute Hypoxia on BiPAP >> NRB mask >> venturi mask>>nasal canula alcohol abuse Liver Cirrhosis, Fatty liver Massive ascites renal failure DM2 HTN Plan: ABX=S/P vanco and Zosyn High volume paracentesis, COVID PCR=Neg F/u BCx GI=Dr Encarnacion Nephrol=Dr Pozo S/P paracentesis 11/02/20; repeat scheduled for 11/26/20 Discharge planning Jered Case MD Nov 26, 2020 18:47
--- NOTE | 2020-11-26 19:36 | NUR ---
NURSE HAND-OFF: Important Events on Shift: paracentesis done (output: 7,000ml) Patient Status: stable Diet: CCHO(M) Pending Orders: n/a Pending Results/Labs:n/a Pending MD notification:n/a Latest Vital Signs: Temperature 98.2 , Pulse 98 , B/P 124 /72 , Respiratory Rate 20 , O2 SAT 96 , Bi-pap, O2 Flow Rate 3.0 . Vital Sign Comment: stable Latest Childs Fall Score: 70 Fall Risk: High Risk Safety Measures: Call light Within Reach, Bed Alarm Zone 2, Side Rails Side Rails x3, Bed position Low and Locked. Fall Precautions: Yellow Socks Yellow Gown Door Sign Patient Fall Education Report given to ROXI Flores.
--- NOTE | 2020-11-27 00:07 | NUR ---
NURSE NOTES: Patient able to pull himself up on bed by himself using siderails and head of bed. Will continue to encourage patient to move up in bed independently.
[2020-11-27 04:00] VITALS: BP 108/69
[2020-11-27] MEDS: Midodrine 10mg tab ORAL SCH ×3 (05:51→22:06)
[2020-11-27] MEDS: NovoLOG Insulin Flexpen SUBQ SCH ×4 (05:51→20:13)
--- NOTE | 2020-11-27 06:29 | General Progress Note ---
Subjective Allergies: Coded Allergies: No Known Allergies (Unverified , 10/02/16) Objective Last 24 Hour Vital Signs Date Time Temp Pulse Resp B/P (MAP) Pulse Ox O2 Delivery O2 Flow Rate FiO2 11/27/20 04:00 98.6 91 18 108/69 (82) 96 11/27/20 00:22 98.2 11/26/20 21:42 Nasal Cannula 3.0 11/26/20 20:30 94 Nasal Cannula 3.0 32 11/26/20 20:00 98.2 103 20 104/67 (79) 96 11/26/20 16:00 98.2 98 20 124/72 (89) 96 11/26/20 13:30 100 104/70 (81) 11/26/20 12:00 97.4 102 20 123/77 (92) 99 11/26/20 09:25 95 Nasal Cannula 3.0 32 11/26/20 09:00 Nasal Cannula 3.0 11/26/20 08:00 97.2 96 20 107/71 (83) 99 Intake and Output 11/26/20 11/27/20 19:00 07:00 Intake Total 480 ml Output Total 700 ml Balance -220 ml Intake Oral 480 ml Output Urine Total 700 ml # Bowel Movements 1 Laboratory Tests 11/26/20 11:36: POC Whole Blood Glucose 135H 11/26/20 16:37: POC Whole Blood Glucose 144H Height (Feet): 6 Height (Inches): 1.00 Weight (Pounds): 200 General Appearance: no apparent distress EENT: normal ENT inspection Neck: supple Cardiovascular: normal rate Respiratory/Chest: decreased breath sounds Abdomen: hypoactive bowel sounds Extremities: non-tender Assessment/Plan Problem List: (1) Cirrhosis ICD Codes: K74.60 - Unspecified cirrhosis of liver SNOMED: 24551623 (2) Hepatic encephalopathy ICD Codes: K72.90 - Hepatic failure, unspecified without coma; R65.20 - Severe sepsis without septic shock SNOMED: 22486319 (3) Hypokalemia ICD Codes: E87.6 - Hypokalemia; R65.20 - Severe sepsis without septic shock SNOMED: 11585648 (4) Ascites ICD Codes: R18.8 - Other ascites SNOMED: 141098910 (5) Severe sepsis ICD Codes: A41.9 - Sepsis, unspecified organism; R65.20 - Severe sepsis without septic shock SNOMED: 49694962 (6) AMS (altered mental status) ICD Codes: R41.82 - Altered mental status, unspecified SNOMED: 532273890 Assessment/Plan: Assessment/Plan Problem List: (1) Cirrhosis ICD Codes: K74.60 - Unspecified cirrhosis of liver SNOMED: 62644392 (2) Hepatic encephalopathy ICD Codes: K72.90 - Hepatic failure, unspecified without coma; R65.20 - Severe sepsis without septic shock SNOMED: 87202866 (3) Hypokalemia ICD Codes: E87.6 - Hypokalemia; R65.20 - Severe sepsis without septic shock SNOMED: 29440000 (4) Ascites ICD Codes: R18.8 - Other ascites SNOMED: 662360285 (5) Severe sepsis ICD Codes: A41.9 - Sepsis, unspecified organism; R65.20 - Severe sepsis without septic shock SNOMED: 58761452 (6) AMS (altered mental status) ICD Codes: R41.82 - Altered mental status, unspecified SNOMED: 677218782 Assessment/Plan: lactulose PPI f/u ammonia level fu hepatitis panel>>> neg s/p repeat paracentesis x4 lasix aldactone repeat labs albumin Mejia Encarnacion MD Nov 27, 2020 06:29
[2020-11-27 06:53] LABS: ANION GAP 3 mmol/L (5-15); BLOOD UREA NITROGEN 16 mg/dL (7-18); CALCIUM 8.7 MG/DL (8.5-10.1); CARBON DIOXIDE 36 MMOL/L (21-32); CHLORIDE 99 MMOL/L (98-107); POTASSIUM 4.3 MMOL/L (3.5-5.1); SODIUM 137 MMOL/L (136-145)
[2020-11-27 06:55] LABS: BASOPHILS % (AUTO) 1.5 % (0.0-2.0); EOSINOPHILS % (AUTO) 1.8 % (0.0-3.0); HEMATOCRIT 29.1 % (42.0-52.0); HEMOGLOBIN 9.3 G/DL (14.2-18.0); LYMPHOCYTES % (AUTO) 9.3 % (20.0-45.0); MEAN CORPUSCULAR VOLUME 107 FL (80-99); MONOCYTES % (AUTO) 11.7 % (1.0-10.0); NEUTROPHILS % (AUTO) 75.6 % (45.0-75.0); PLATELET COUNT 267 K/UL (150-450); RED BLOOD COUNT 2.72 M/UL (4.70-6.10)
--- NOTE | 2020-11-27 07:34 | NUR ---
NURSE NOTES: Report given to ROXI Vázquez
--- NOTE | 2020-11-27 07:45 | NUR ---
NURSE NOTES: Received report from ROXI Carpenter. Pt awake, alert and oriented. Breathing even and unlabored on NC 3L/min. Denied any pain at this time. IV is in placed intact and patent. Bed in lowest position, call light within reach. Will continue to monitor.
[2020-11-27 08:00] VITALS: BP 114/66
[2020-11-27] MEDS: Vitamin D 1000 units Tab ORAL SCH (08:40)
[2020-11-27] MEDS: Allopurinol 100mg Tab ORAL SCH (08:40)
[2020-11-27] MEDS: Spironolactone 50mg tab ORAL SCH (08:41)
[2020-11-27] MEDS: Lactulose 20gm/30ml UDC ORAL SCH ×2 (08:41→18:14)
[2020-11-27] MEDS: Magnesium Oxide 400mg tab ORAL SCH ×3 (08:41→18:14)
[2020-11-27] MEDS: CLOBETASOL 0.05% TOPIC SCH ×2 (08:41→18:14)
--- NOTE | 2020-11-27 08:43 | Infectious Diseases Prog Note ---
Assessment/Plan 60yo M with: Sepsis Afebrile Hypoxia on BiPAP >> NRB mask >> venti mask Leukocytosis to 14, improving Lymphopenia 11/01 BCx NTD COVID PCR neg CXR: Elevated right hemidiaphragm. Possible right basilar airspace disease and right effusion. CTH: No acute process EtOH abuse Cirrhosis, Fatty liver Massive ascites Elevated AST to 48 Acute hep panel neg 11/01 CT A/P: CIRRHOSIS WITH LARGE AMOUNT OF ASCITES. SPLENIC GRANULOMAS. SLUDGE IN THE GALLBLADDER. SMALL RIGHT PLEURAL EFFUSION WITH COMPRESSIVE ATELECTASIS RIGHT LOWER LOBE. ELEVATED RIGHT HEMIDIAPHRAGM. 11/02 Paracentesis, 10.2L removed 838 RBC, 142 WBC, 2%PMN, 94%[facility] Cx - NTD 11/26/20 - S/P paracentesis - not fluid no sent to the lab DAVIDE vs CKD, Cr 2.4, improving HIV screen neg EtOH abuse, stopped drinking in Sep 2020 Fatty liver DM2 HTN Plan: Monitor off abx Trend WBC if increasing again tomorrow will need to start abx 11/11 SP Zosyn #10 11/03 SP vanco #2 Monitor CBC/CMP Monitor temp curve, hemodynamics Monitor resp status D/w RN Thank you for this consult. [facility] will continue to follow. Subjective Allergies: Coded Allergies: No Known Allergies (Unverified , 10/02/16) Afebrile Mild Leukocytosis decreased to 12 from 16 Abd distended but feeling better S/P paracentesis 11/27/20 S/P Paracentesis Objective Last 24 Hour Vital Signs Date Time Temp Pulse Resp B/P (MAP) Pulse Ox O2 Delivery O2 Flow Rate FiO2 11/27/20 04:00 98.6 91 18 108/69 (82) 96 11/27/20 00:22 98.2 11/26/20 21:42 Nasal Cannula 3.0 11/26/20 20:30 94 Nasal Cannula 3.0 32 11/26/20 20:00 98.2 103 20 104/67 (79) 96 11/26/20 16:00 98.2 98 20 124/72 (89) 96 11/26/20 13:30 100 104/70 (81) 11/26/20 12:00 97.4 102 20 123/77 (92) 99 11/26/20 09:25 95 Nasal Cannula 3.0 32 11/26/20 09:00 Nasal Cannula 3.0 Height (Feet): 6 Height (Inches): 1.00 Weight (Pounds): 200 Gen: NAD laying in bed on 3L O2 HEENT: NCAT, EOMI Pulm: BL chest rise Abd: Distended, soft, +fluid wave Ext: No c/c/e Neuro: Awake, interactive Laboratory Tests Test 11/26/20 11:36 11/26/20 16:37 11/27/20 05:05 POC Whole Blood Glucose 135 MG/DL (74-106) H 144 MG/DL (74-106) H White Blood Count 12.0 K/UL (4.8-10.8) H Red Blood Count 2.72 M/UL (4.70-6.10) L Hemoglobin 9.3 G/DL (14.2-18.0) L Hematocrit 29.1 % (42.0-52.0) L Mean Corpuscular Volume 107 FL (80-99) H Mean Corpuscular Hemoglobin 34.2 PG (27.0-31.0) H Mean Corpuscular Hemoglobin Concent 31.9 G/DL (32.0-36.0) L Red Cell Distribution Width 18.0 % (11.6-14.8) H Platelet Count 267 K/UL (150-450) Mean Platelet Volume 5.1 FL (6.5-10.1) L Neutrophils (%) (Auto) 75.6 % (45.0-75.0) H Lymphocytes (%) (Auto) 9.3 % (20.0-45.0) L Monocytes (%) (Auto) 11.7 % (1.0-10.0) H Eosinophils (%) (Auto) 1.8 % (0.0-3.0) Basophils (%) (Auto) 1.5 % (0.0-2.0) Sodium Level 137 MMOL/L (136-145) Potassium Level 4.3 MMOL/L (3.5-5.1) Chloride Level 99 MMOL/L (98-107) Carbon Dioxide Level 36 MMOL/L (21-32) H Anion Gap 3 mmol/L (5-15) L Blood Urea Nitrogen 16 mg/dL (7-18) Creatinine 1.0 MG/DL (0.55-1.30) Estimat Glomerular Filtration Rate > 60 mL/min (>60) Glucose Level 90 MG/DL (74-106) Calcium Level 8.7 MG/DL (8.5-10.1) Current Medications Medications (Trade) Dose Ordered Sig/Kylah Route PRN Reason Start Time Stop Time Status Last Admin Dose Admin Acetaminophen (Tylenol) 500 mg Q6H PRN ORAL Mild Pain 11/02/20 08:30 12/02/20 08:29 11/23/20 17:17 Acetaminophen (Tylenol) 500 mg Q6H PRN ORAL fever > 100.2 11/02/20 08:45 12/02/20 08:44 Acetaminophen/ Hydrocodone Bitart ([place] 5/325) 1 tab Q6H PRN ORAL Severe Pain (Pain Scale 7-10) 11/24/20 19:00 12/01/20 18:59 11/26/20 23:52 Albumin Human 100 ml @ 100 mls/hr ONCE ONCE IV 11/27/20 08:30 11/27/20 09:29 Allopurinol (Zyloprim) 200 mg DAILY ORAL 11/04/20 15:00 12/04/20 14:59 11/26/20 09:41 Clobetasol Propionate (Temovate) 1 applic TWICE A DAY TOPIC 11/21/20 13:30 02/19/21 13:29 11/26/20 17:11 Dextrose (Dextrose 50%) 25 ml Q30M PRN IV Hypoglycemia 11/01/20 18:30 01/30/21 18:29 Dextrose (Dextrose 50%) 50 ml Q30M PRN IV Hypoglycemia 11/01/20 18:30 01/30/21 18:29 Folic Acid (Folate) 3 mg DAILY ORAL 11/03/20 13:15 12/03/20 13:14 11/26/20 09:41 Furosemide (Lasix) 40 mg DAILY IV 11/27/20 06:30 12/27/20 06:29 11/27/20 06:38 Insulin Aspart (NovoLOG) BEFORE MEALS AND HS SUBQ 11/01/20 21:00 01/30/21 20:59 11/26/20 20:52 Lactulose (Cephulac) 20 gm BID ORAL 11/20/20 09:00 12/20/20 08:59 11/26/20 17:10 Magnesium Oxide (Mag-Ox 400mg) 400 mg THREE TIMES A DAY ORAL 11/13/20 13:00 12/13/20 12:59 11/26/20 17:08 Midodrine (Pro-Amatine) 10 mg Q8HR ORAL 11/02/20 14:00 01/31/21 13:59 11/26/20 21:57 Pantoprazole (Protonix) 40 mg DAILY ORAL 11/14/20 09:00 12/14/20 08:59 11/26/20 09:41 Spironolactone (Aldactone) 100 mg DAILY ORAL 11/16/20 09:00 12/16/20 08:59 11/26/20 09:41 Vitamin D (Vitamin D) 5,000 unit DAILY ORAL 11/16/20 09:00 12/16/20 08:59 11/26/20 13:55 Nazario Banks MD Nov 27, 2020 08:42
--- NOTE | 2020-11-27 09:48 | Surgery Progress Note ---
Surgery Progress Note Subjective Additional Comments wbc improved no n/v comfortable no complaints turning labs noted Objective Last 24 Hour Vital Signs Date Time Temp Pulse Resp B/P (MAP) Pulse Ox O2 Delivery O2 Flow Rate FiO2 11/27/20 04:00 98.6 91 18 108/69 (82) 96 11/27/20 00:22 98.2 11/26/20 21:42 Nasal Cannula 3.0 11/26/20 20:30 94 Nasal Cannula 3.0 32 11/26/20 20:00 98.2 103 20 104/67 (79) 96 11/26/20 16:00 98.2 98 20 124/72 (89) 96 11/26/20 13:30 100 104/70 (81) 11/26/20 12:00 97.4 102 20 123/77 (92) 99 I&O Intake and Output 11/26/20 11/27/20 19:00 07:00 Intake Total 480 ml Output Total 700 ml 500 ml Balance -220 ml -500 ml Intake Oral 480 ml Output Urine Total 700 ml 500 ml # Voids 2 # Bowel Movements 1 2 Dressing: dry Wound: clean Cardiovascular: RSR Respiratory: clear Abdomen: soft, flat, non-tender, present bowel sounds, non-distended Extremities: no edema, no tenderness, no cyanosis Laboratory Tests Test 11/26/20 11:36 11/26/20 16:37 11/27/20 05:05 POC Whole Blood Glucose 135 MG/DL (74-106) H 144 MG/DL (74-106) H White Blood Count 12.0 K/UL (4.8-10.8) H Red Blood Count 2.72 M/UL (4.70-6.10) L Hemoglobin 9.3 G/DL (14.2-18.0) L Hematocrit 29.1 % (42.0-52.0) L Mean Corpuscular Volume 107 FL (80-99) H Mean Corpuscular Hemoglobin 34.2 PG (27.0-31.0) H Mean Corpuscular Hemoglobin Concent 31.9 G/DL (32.0-36.0) L Red Cell Distribution Width 18.0 % (11.6-14.8) H Platelet Count 267 K/UL (150-450) Mean Platelet Volume 5.1 FL (6.5-10.1) L Neutrophils (%) (Auto) 75.6 % (45.0-75.0) H Lymphocytes (%) (Auto) 9.3 % (20.0-45.0) L Monocytes (%) (Auto) 11.7 % (1.0-10.0) H Eosinophils (%) (Auto) 1.8 % (0.0-3.0) Basophils (%) (Auto) 1.5 % (0.0-2.0) Sodium Level 137 MMOL/L (136-145) Potassium Level 4.3 MMOL/L (3.5-5.1) Chloride Level 99 MMOL/L (98-107) Carbon Dioxide Level 36 MMOL/L (21-32) H Anion Gap 3 mmol/L (5-15) L Blood Urea Nitrogen 16 mg/dL (7-18) Creatinine 1.0 MG/DL (0.55-1.30) Estimat Glomerular Filtration Rate > 60 mL/min (>60) Glucose Level 90 MG/DL (74-106) Calcium Level 8.7 MG/DL (8.5-10.1) Plan Problems: (1) Deep tissue injury Assessment & Plan: Pt presented on admission with DTPI Thoracic Spine(L)1.8cm x (W)1cm. Base of Pressure Injury is purpuric with surrounding non-blanchable erythema. Pt complained of tenderness at site. Non-Blanchable erythema without induration noted to Sacrum,R and L Gluteal cheeks including Bilat Ischial tuberosities. Rocker bottom foot noted to Both R and L feet. Both heels are callused,dry and easily blanchable. Tx.Plan: Apply Cavilon Skin Barrier To Thoracic DTPI. Cover with Optifoam drsg. Change every 3 days and prn. Apply Moisture Barrier Paste to Sacrum. Cover with Optifoam drsg. Change every 3 days and prn. Apply Cavilon Skin Barrier to R and L gluteal cheeks and Bilat Ischial tuberosities with each Incontinence care. Reposition at least every 2Hours or as tolerated. Off-load heels with pillow. (2) Hepatic encephalopathy (3) Hypokalemia (4) Ascites (5) Severe sepsis (6) Cirrhosis Assessment & Plan: distended again may need repeat para gi input There is compressive atelectasis right lower lobe. Small right effusion noted. Right hemidiaphragm is elevated. There is a large amount of ascites. Slight nodularity of the hepatic contour noted suggestive of underlying cirrhotic changes. Spleen contains some scattered granulomas. Gallbladder is isodense to liver likely containing tumefactive sludge. The pancreas is unremarkable. Adrenals are normal in morphology. The kidneys are normal in size, shape and axis. Small bowel loops are nondistended. The colon is also nondistended with average amount of stool. The appendix is not visualized. There is no free air. No pathologic adenopathy demonstrated. Urinary bladder appears unremarkable. Degenerative changes of the lumbar spine noted. IMPRESSION: CIRRHOSIS WITH LARGE AMOUNT OF ASCITES. SPLENIC GRANULOMAS. SLUDGE IN THE GALLBLADDER. SMALL RIGHT PLEURAL EFFUSION WITH COMPRESSIVE ATELECTASIS RIGHT LOWER LOBE. ELEVATED RIGHT HEMIDIAPHRAGM. (7) AMS (altered mental status) (8) Electrolyte imbalance (9) Renal failure (ARF), acute on chronic (10) Anemia (11) HTN (hypertension) (12) DMII (diabetes mellitus, type 2) Theodore Alves Nov 27, 2020 09:48
--- NOTE | 2020-11-27 10:56 | Nephrology Progress Note ---
Assessment/Plan Problem List: (1) Renal failure (ARF), acute on chronic (2) Electrolyte imbalance (3) Hypokalemia (4) Cirrhosis (5) DMII (diabetes mellitus, type 2) (6) Anemia (7) HTN (hypertension) Assessment Renal failure most likely acute on chronic Electrolyte imbalances, hypokalemia Sepsis Hepatic encephalopathy, ascites, fatty liver Anemia History of EtOH abuse, history of tobacco abuse, history of drug abuse Diabetes mellitus type 2 Hypertension Lymphopenia, leukocytosis, hypoxia Plan November 27: Labs reviewed. Renal parameters stable. Continue per consultants. November 25: No CHEM panel drawn today. Patient clinically appears to be stable. Will continue to monitor electrolytes and renal parameters while in- house. Per orders. November 24: Labs reviewed. Renal parameters stable. Continues to have ascites requiring periodic Paracentesis. Not much to add from renal standpoint to view. Medication list reviewed. November 23: No CHEM panel drawn today. Clinically stable. Meds reviewed. Continue per current regimen. Check lab tomorrow. November 22: Labs reviewed. Electrolytes reasonably well-maintained. Continue per current treatment plan. November 21: Labs reviewed. Abnormal electrolytes addressed. Neutra-Phos discontinued. Continue per current management. November 20: Labs reviewed. Renal parameters stable. Massive ascites and GI discomfort persists. Medication list reviewed. November 19: Labs reviewed. Serum sodium 133. Normal saline 500 cc bolus given. Continue per consultants. November 18: Labs reviewed. Abnormal electrolytes addressed. Continue per consultants November 17: Labs reviewed. Renal parameters stable. Medication list reviewed. On Lasix and Aldactone. We will continue to monitor blood chemistries and electrolytes. November 16: Labs reviewed. Electrolytes within normal limit now. Continue her current management. November 15: Labs reviewed. Low magnesium addressed. Continue per current m anagement. November 14: Labs reviewed. Renal parameters are stable continue per current management. Vitamin D supplement given. November 13: Labs reviewed. Normal renal parameters. Abnormal electrolytes noted and addressed. Vitamin D level results still pending November 12: Labs reviewed. Serum creatinine now within normal limits. Much improved from renal standpoint of view. November 11: Labs reviewed. Serum creatinine 1.6. Stable from renal standpoint reviewed. November 10: Labs reviewed. Serum creatinine lowered to 1.9. Continue to monitor renal parameters. Magnesium supplement ordered. November 09: No CHEM panel drawn today. Will DC Hernandez due to pain in the urethra. We will continue to monitor renal parameters. Continue per consultants. November 08: Labs reviewed. Serum creatinine 2.3 unchanged. Electrolytes within normal limit. Continue per consultants. November 07: Labs reviewed. Serum creatinine down to 2.3. Continue to monitor electrolytes. Low magnesium addressed. November 06: Labs reviewed. Serum creatinine 2.5 unchanged. Continue per consultants. November 05: Labs reviewed. Serum creatinine plateauing. Status quo. Electrolyte acceptable. Now on oxygen by cannula. Continue per consultants. November 04 labs reviewed. Patient full code. On Venturi mask. Low potassium addressed. Serum creatinine rising. Continue to monitor renal parameters. Allopurinol initiated November 03: Labs reviewed. Medication list reviewed. Abnormal electrolyte addressed. Continue monitor renal parameters. Continue per consultants. Previously: Trial of 3% saline and albumin bolus Potassium supplement Monitor renal parameters, ammonia, electrolytes ordered Subjective ROS Limited/Unobtainable: No Constitutional: Reports: malaise Objective Objective Last 24 Hour Vital Signs Date Time Temp Pulse Resp B/P (MAP) Pulse Ox O2 Delivery O2 Flow Rate FiO2 11/27/20 09:00 Nasal Cannula 3.0 11/27/20 08:00 97.9 103 18 114/66 (82) 96 11/27/20 04:00 98.6 91 18 108/69 (82) 96 11/27/20 00:22 98.2 11/26/20 21:42 Nasal Cannula 3.0 11/26/20 20:30 94 Nasal Cannula 3.0 32 11/26/20 20:00 98.2 103 20 104/67 (79) 96 11/26/20 16:00 98.2 98 20 124/72 (89) 96 11/26/20 13:30 100 104/70 (81) 11/26/20 12:00 97.4 102 20 123/77 (92) 99 Intake and Output 11/26/20 11/27/20 19:00 07:00 Intake Total 480 ml Output Total 700 ml 500 ml Balance -220 ml -500 ml Intake Oral 480 ml Output Urine Total 700 ml 500 ml # Voids 2 # Bowel Movements 1 2 Current Medications Medications (Trade) Dose Ordered Sig/Kylah Route PRN Reason Start Time Stop Time Status Last Admin Dose Admin Acetaminophen (Tylenol) 500 mg Q6H PRN ORAL Mild Pain 11/02/20 08:30 12/02/20 08:29 11/23/20 17:17 Acetaminophen (Tylenol) 500 mg Q6H PRN ORAL fever > 100.2 11/02/20 08:45 12/02/20 08:44 Acetaminophen/ Hydrocodone Bitart ([place] 5/325) 1 tab Q6H PRN ORAL Severe Pain (Pain Scale 7-10) 11/24/20 19:00 12/01/20 18:59 11/26/20 23:52 Allopurinol (Zyloprim) 200 mg DAILY ORAL 11/04/20 15:00 12/04/20 14:59 11/27/20 08:40 Clobetasol Propionate (Temovate) 1 applic TWICE A DAY TOPIC 11/21/20 13:30 02/19/21 13:29 11/27/20 08:41 Dextrose (Dextrose 50%) 25 ml Q30M PRN IV Hypoglycemia 11/01/20 18:30 01/30/21 18:29 Dextrose (Dextrose 50%) 50 ml Q30M PRN IV Hypoglycemia 11/01/20 18:30 01/30/21 18:29 Folic Acid (Folate) 3 mg DAILY ORAL 11/03/20 13:15 12/03/20 13:14 11/27/20 08:41 Furosemide (Lasix) 40 mg DAILY IV 11/27/20 06:30 12/27/20 06:29 11/27/20 06:38 Insulin Aspart (NovoLOG) BEFORE MEALS AND HS SUBQ 11/01/20 21:00 01/30/21 20:59 11/26/20 20:52 Lactulose (Cephulac) 20 gm BID ORAL 11/20/20 09:00 12/20/20 08:59 11/27/20 08:41 Magnesium Oxide (Mag-Ox 400mg) 400 mg THREE TIMES A DAY ORAL 11/13/20 13:00 12/13/20 12:59 11/27/20 08:41 Midodrine (Pro-Amatine) 10 mg Q8HR ORAL 11/02/20 14:00 01/31/21 13:59 11/26/20 21:57 Pantoprazole (Protonix) 40 mg DAILY ORAL 11/14/20 09:00 12/14/20 08:59 11/27/20 08:41 Spironolactone (Aldactone) 100 mg DAILY ORAL 11/16/20 09:00 12/16/20 08:59 11/27/20 08:41 Vitamin D (Vitamin D) 5,000 unit DAILY ORAL 11/16/20 09:00 12/16/20 08:59 11/27/20 08:40 Laboratory Tests 11/26/20 11:36: POC Whole Blood Glucose 135H 11/26/20 16:37: POC Whole Blood Glucose 144H 11/27/20 05:05: White Blood Count 12.0H, Red Blood Count 2.72L, Hemoglobin 9.3L, Hematocrit 29.1L, Mean Corpuscular Volume 107H, Mean Corpuscular Hemoglobin 34.2H, Mean Corpuscular Hemoglobin Concent 31.9L, Red Cell Distribution Width 18.0H, Platelet Count 267, Mean Platelet Volume 5.1L, Neutrophils (%) (Auto) 75.6H, Lymphocytes (%) (Auto) 9.3L, Monocytes (%) (Auto) 11.7H, Eosinophils (%) (Auto) 1.8, Basophils (%) (Auto) 1.5, Sodium Level 137, Potassium Level 4.3, Chloride Level 99, Carbon Dioxide Level 36H, Anion Gap 3L, Blood Urea Nitrogen 16, Creatinine 1.0, Estimat Glomerular Filtration Rate > 60, Glucose Level 90, Calcium Level 8.7 Height (Feet): 6 Height (Inches): 1.00 Weight (Pounds): 200 General Appearance: no apparent distress Respiratory/Chest: decreased breath sounds Abdomen: distended Kalin Pozo MD Nov 27, 2020 10:56
[2020-11-27 12:00] VITALS: BP 119/72
--- NOTE | 2020-11-27 12:45 | NUR ---
RD ASSESSMENT & RECOMMENDATIONS SEE CARE ACTIVITY FOR COMPLETE ASSESSMENT DAILY ESTIMATED NEEDS: Needs based on Liver, DM 85.1 25-30 kcals/kg [id number] total kcals 1.25-1.5 g protein/kg 106-128 g total protein Fluid per MD NUTRITION DIAGNOSIS: Decreased sodium and fat needs r/t liver cirrhosis as evidenced by s/p paracentesis 10.2L removed, elevated T bili-> wnl and LFT's, ammonia elevated on adm, now wnl. CURRENT DIET: [facility] MED PO DIET RECOMMENDATIONS: Low Fat/ Low Sodium textures as tolerated ADDITIONAL RECOMMENDATIONS: 1) With BG >150, rec added [facility] MED diet 2) Obtain a calibrated bed scale wt 3) Monitor lytes and hydration status closely w/ diuretics 4) AM snacks daily per pt request 5) Skin integrity-> add TERRENCE BID, MVI x1
[2020-11-27] MEDS: HYDROcodone/Acetamin 5/325 tab ORAL PRN (15:10)
[2020-11-27 16:00] VITALS: BP 119/87
--- NOTE | 2020-11-27 17:46 | Internal Med Progress Note ---
Subjective Physician Name Jered Case Attending Physician Ramon Coombs MD Current Medications Medications (Trade) Dose Ordered Sig/Kylah Route PRN Reason Start Time Stop Time Status Last Admin Dose Admin Acetaminophen (Tylenol) 500 mg Q6H PRN ORAL Mild Pain 11/02/20 08:30 12/02/20 08:29 11/23/20 17:17 Acetaminophen (Tylenol) 500 mg Q6H PRN ORAL fever > 100.2 11/02/20 08:45 12/02/20 08:44 Acetaminophen/ Hydrocodone Bitart ([place] 5/325) 1 tab Q6H PRN ORAL Severe Pain (Pain Scale 7-10) 11/24/20 19:00 12/01/20 18:59 11/27/20 15:10 Allopurinol (Zyloprim) 200 mg DAILY ORAL 11/04/20 15:00 12/04/20 14:59 11/27/20 08:40 Clobetasol Propionate (Temovate) 1 applic TWICE A DAY TOPIC 11/21/20 13:30 02/19/21 13:29 11/27/20 08:41 Dextrose (Dextrose 50%) 25 ml Q30M PRN IV Hypoglycemia 11/01/20 18:30 01/30/21 18:29 Dextrose (Dextrose 50%) 50 ml Q30M PRN IV Hypoglycemia 11/01/20 18:30 01/30/21 18:29 Folic Acid (Folate) 3 mg DAILY ORAL 11/03/20 13:15 12/03/20 13:14 11/27/20 08:41 Furosemide (Lasix) 40 mg DAILY IV 11/27/20 06:30 12/27/20 06:29 11/27/20 06:38 Insulin Aspart (NovoLOG) BEFORE MEALS AND HS SUBQ 11/01/20 21:00 01/30/21 20:59 11/26/20 20:52 Lactulose (Cephulac) 20 gm BID ORAL 11/20/20 09:00 12/20/20 08:59 11/27/20 08:41 Magnesium Oxide (Mag-Ox 400mg) 400 mg THREE TIMES A DAY ORAL 11/13/20 13:00 12/13/20 12:59 11/27/20 13:00 Midodrine (Pro-Amatine) 10 mg Q8HR ORAL 11/02/20 14:00 01/31/21 13:59 11/26/20 21:57 Pantoprazole (Protonix) 40 mg DAILY ORAL 11/14/20 09:00 12/14/20 08:59 11/27/20 08:41 Spironolactone (Aldactone) 100 mg DAILY ORAL 11/16/20 09:00 12/16/20 08:59 11/27/20 08:41 Vitamin D (Vitamin D) 5,000 unit DAILY ORAL 11/16/20 09:00 12/16/20 08:59 11/27/20 08:40 Allergies: Coded Allergies: No Known Allergies (Unverified , 10/02/16) Subjective 60 YO M with history of alcohol dependence admitted with shortness of breath. N ow respiratroy failure. Cover for Int Med-DR Coombs. S/P paracentesis 11/02/20 and repeat on 11/26/20 Objective Last Vital Signs Date Time Temp Pulse Resp B/P (MAP) Pulse Ox O2 Delivery O2 Flow Rate FiO2 11/27/20 16:00 98.3 99 18 119/87 (98) 96 11/27/20 09:00 Nasal Cannula 3.0 11/26/20 20:30 32 Laboratory Tests Test 11/27/20 05:05 11/27/20 11:47 11/27/20 16:46 White Blood Count 12.0 K/UL (4.8-10.8) H Red Blood Count 2.72 M/UL (4.70-6.10) L Hemoglobin 9.3 G/DL (14.2-18.0) L Hematocrit 29.1 % (42.0-52.0) L Mean Corpuscular Volume 107 FL (80-99) H Mean Corpuscular Hemoglobin 34.2 PG (27.0-31.0) H Mean Corpuscular Hemoglobin Concent 31.9 G/DL (32.0-36.0) L Red Cell Distribution Width 18.0 % (11.6-14.8) H Platelet Count 267 K/UL (150-450) Mean Platelet Volume 5.1 FL (6.5-10.1) L Neutrophils (%) (Auto) 75.6 % (45.0-75.0) H Lymphocytes (%) (Auto) 9.3 % (20.0-45.0) L Monocytes (%) (Auto) 11.7 % (1.0-10.0) H Eosinophils (%) (Auto) 1.8 % (0.0-3.0) Basophils (%) (Auto) 1.5 % (0.0-2.0) Sodium Level 137 MMOL/L (136-145) Potassium Level 4.3 MMOL/L (3.5-5.1) Chloride Level 99 MMOL/L (98-107) Carbon Dioxide Level 36 MMOL/L (21-32) H Anion Gap 3 mmol/L (5-15) L Blood Urea Nitrogen 16 mg/dL (7-18) Creatinine 1.0 MG/DL (0.55-1.30) Estimat Glomerular Filtration Rate > 60 mL/min (>60) Glucose Level 90 MG/DL (74-106) Calcium Level 8.7 MG/DL (8.5-10.1) POC Whole Blood Glucose 108 MG/DL (74-106) H 107 MG/DL (74-106) H Intake and Output 11/26/20 11/27/20 19:00 07:00 Intake Total 480 ml Output Total 700 ml 500 ml Balance -220 ml -500 ml Intake Oral 480 ml Output Urine Total 700 ml 500 ml # Voids 2 # Bowel Movements 1 2 Objective Objective General: No acute distress, awake and alert HEENT: NCAT, sclera anicteric, PERRL, EOMI. Neck: Supple, no significant jugular venous distention, Lungs: Nasal canula; Fair inspiratory effort, , no Wheeze or Rales. Heart: Regular rate and rhythm, normal S1/S2, no murmurs Abdomen: soft, nontender, +distended. positive fluid shift, bowel sound present. / Rectal: Refused and deferred. Extremities: No Cyanosis , clubbing or edema. Neuro: A&O x 3, Able to move all extremities Skin: warm, no rash Assessment/Plan Assessment/Plan Assessment/Plan Assessment/Plan Sepsis Acute Hypoxia on BiPAP >> NRB mask >> venturi mask>>nasal canula alcohol abuse Liver Cirrhosis, Fatty liver Massive ascites renal failure DM2 HTN Plan: ABX=S/P vanco and Zosyn High volume paracentesis, COVID PCR=Neg F/u BCx GI=Dr Encarnacion Nephrol=Dr Pozo S/P paracentesis 11/02/20 and repeat 11/26/20 Discharge planning Jered Case MD Nov 27, 2020 17:46
--- NOTE | 2020-11-27 18:59 | NUR ---
NURSE HAND-OFF: Important Events on Shift:[Physical therapy done. Pt stated not ready to go home yet] Patient Status: [stable] Diet: [CCHO] Pending Orders: [] Pending Results/Labs:[] Pending MD notification:[] Latest Vital Signs: Temperature 98.3 , Pulse 99 , B/P 119 /87 , Respiratory Rate 18 , O2 SAT 96 , Bi-pap, O2 Flow Rate 3.0 . Vital Sign Comment: [stable] Latest Childs Fall Score: 70 Fall Risk: High Risk Safety Measures: Call light Within Reach, Bed Alarm Zone 2, Side Rails Side Rails x3, Bed position Low and Locked. Fall Precautions: Yellow Socks Yellow Gown Door Sign Patient Fall Education Report given to [ROXI Carpenter].
[2020-11-27 20:00] VITALS: BP 105/70
--- NOTE | 2020-11-27 20:00 | NUR ---
NURSE NOTES: Received patient awake in bed, no s/s of acute distress, no c/o pain at this time. IV access patent. Bed low and locked. Patient now able to pull himself up in bed independently.
[2020-11-28] VITALS: BP 111/66
[2020-11-28 04:00] VITALS: BP 111/65
[2020-11-28] MEDS: Midodrine 10mg tab ORAL SCH ×3 (05:48→21:05)
[2020-11-28] MEDS: NovoLOG Insulin Flexpen SUBQ SCH ×4 (06:00→20:15)
[2020-11-28] MEDS: HYDROcodone/Acetamin 5/325 tab ORAL PRN ×2 (06:20→14:00)
--- NOTE | 2020-11-28 07:13 | NUR ---
NURSE NOTES: Report given to ROXI Vázquez
[2020-11-28 07:21] LABS: BASOPHILS % (AUTO) 1.7 % (0.0-2.0); EOSINOPHILS % (AUTO) 1.5 % (0.0-3.0); HEMATOCRIT 27.7 % (42.0-52.0); HEMOGLOBIN 9.1 G/DL (14.2-18.0); LYMPHOCYTES % (AUTO) 11.2 % (20.0-45.0); MEAN CORPUSCULAR VOLUME 104 FL (80-99); MONOCYTES % (AUTO) 9.3 % (1.0-10.0); NEUTROPHILS % (AUTO) 76.2 % (45.0-75.0); PLATELET COUNT 213 K/UL (150-450); RED BLOOD COUNT 2.66 M/UL (4.70-6.10); RED CELL DISTRIBUTION WIDTH 17.9 % (11.6-14.8); WHITE BLOOD COUNT 9.4 K/UL (4.8-10.8)
[2020-11-28 07:26] LABS: ANION GAP 6 mmol/L (5-15); BLOOD UREA NITROGEN 16 mg/dL (7-18); CALCIUM 8.7 MG/DL (8.5-10.1); CARBON DIOXIDE 31 MMOL/L (21-32); CHLORIDE 97 MMOL/L (98-107); CREATININE 0.9 MG/DL (0.55-1.30); POTASSIUM 4.5 MMOL/L (3.5-5.1); SODIUM 134 MMOL/L (136-145)
[2020-11-28 08:00] VITALS: BP 96/56
--- NOTE | 2020-11-28 08:51 | General Progress Note ---
Subjective ROS Limited/Unobtainable: No Allergies: Coded Allergies: No Known Allergies (Unverified , 10/02/16) Objective Last 24 Hour Vital Signs Date Time Temp Pulse Resp B/P (MAP) Pulse Ox O2 Delivery O2 Flow Rate FiO2 11/28/20 08:00 96 Nasal Cannula 3.0 32 11/28/20 06:50 97.8 11/28/20 04:00 97.8 98 18 111/65 (80) 98 11/28/20 00:00 98.4 91 17 111/66 (81) 100 11/27/20 21:14 Nasal Cannula 3.0 11/27/20 20:00 98.1 96 18 105/70 (82) 96 11/27/20 19:00 96 Nasal Cannula 3.0 32 11/27/20 16:00 98.3 99 18 119/87 (98) 96 11/27/20 15:40 98.1 11/27/20 12:00 98.1 99 18 119/72 (88) 95 11/27/20 09:00 Nasal Cannula 3.0 Intake and Output 11/27/20 11/28/20 19:00 07:00 Intake Total 600 ml 250 ml Output Total 450 ml 500 ml Balance 150 ml -250 ml Intake Oral 250 ml Other 600 ml Output Urine Total 450 ml 500 ml Laboratory Tests 11/27/20 11:47: POC Whole Blood Glucose 108H 11/27/20 16:46: POC Whole Blood Glucose 107H 11/28/20 05:12: White Blood Count 9.4, Red Blood Count 2.66L, Hemoglobin 9.1L, Hematocrit 27.7L, Mean Corpuscular Volume 104H, Mean Corpuscular Hemoglobin 34.3H, Mean Corpuscular Hemoglobin Concent 32.9, Red Cell Distribution Width 17.9H, Platelet Count 213, Mean Platelet Volume 5.1L, Neutrophils (%) (Auto) 76.2H, Lymphocytes (%) (Auto) 11.2L, Monocytes (%) (Auto) 9.3, Eosinophils (%) (Auto) 1.5, Basophils (%) (Auto) 1.7, Sodium Level 134L, Potassium Level 4.5, Chloride Level 97L, Carbon Dioxide Level 31, Anion Gap 6, Blood Urea Nitrogen 16, Creatinine 0.9, Estimat Glomerular Filtration Rate > 60, Glucose Level 87, Calcium Level 8.7 Height (Feet): 6 Height (Inches): 1.00 Weight (Pounds): 200 General Appearance: no apparent distress EENT: normal ENT inspection Neck: supple Cardiovascular: normal rate Respiratory/Chest: decreased breath sounds Abdomen: hypoactive bowel sounds Extremities: non-tender Assessment/Plan Problem List: (1) Cirrhosis ICD Codes: K74.60 - Unspecified cirrhosis of liver SNOMED: 69922127 (2) Hepatic encephalopathy ICD Codes: K72.90 - Hepatic failure, unspecified without coma; R65.20 - Severe sepsis without septic shock SNOMED: 30043789 (3) Hypokalemia ICD Codes: E87.6 - Hypokalemia; R65.20 - Severe sepsis without septic shock SNOMED: 75770120 (4) Ascites ICD Codes: R18.8 - Other ascites SNOMED: 953722488 (5) Severe sepsis ICD Codes: A41.9 - Sepsis, unspecified organism; R65.20 - Severe sepsis without septic shock SNOMED: 21690327 (6) AMS (altered mental status) ICD Codes: R41.82 - Altered mental status, unspecified SNOMED: 495424110 Assessment/Plan: Assessment/Plan Problem List: (1) Cirrhosis ICD Codes: K74.60 - Unspecified cirrhosis of liver SNOMED: (2) Hepatic encephalopathy ICD Codes: K72.90 - Hepatic failure, unspecified without coma; R65.20 - Severe sepsis without septic shock SNOMED: 82803635 (3) Hypokalemia ICD Codes: E87.6 - Hypokalemia; R65.20 - Severe sepsis without septic shock SNOMED: 29622051 (4) Ascites ICD Codes: R18.8 - Other ascites SNOMED: 404626947 (5) Severe sepsis ICD Codes: A41.9 - Sepsis, unspecified organism; R65.20 - Severe sepsis without septic shock SNOMED: 69835978 (6) AMS (altered mental status) ICD Codes: R41.82 - Altered mental status, unspecified SNOMED: 305343989 Assessment/Plan: lactulose PPI f/u ammonia level fu hepatitis panel>>> neg s/p repeat paracentesis x4 lasix aldactone repeat labs albumin Mejia Encarnacion MD Nov 28, 2020 08:51
[2020-11-28] MEDS: CLOBETASOL 0.05% TOPIC SCH ×2 (09:00→18:00)
--- NOTE | 2020-11-28 09:19 | Infectious Diseases Prog Note ---
Assessment/Plan 60yo M with: Sepsis Afebrile Hypoxia on BiPAP >> NRB mask >> venti mask Leukocytosis to 14, improving Lymphopenia 11/01 BCx NTD COVID PCR neg CXR: Elevated right hemidiaphragm. Possible right basilar airspace disease and right effusion. CTH: No acute process EtOH abuse Cirrhosis, Fatty liver Massive ascites Elevated AST to 48 Acute hep panel neg 11/01 CT A/P: CIRRHOSIS WITH LARGE AMOUNT OF ASCITES. SPLENIC GRANULOMAS. SLUDGE IN THE GALLBLADDER. SMALL RIGHT PLEURAL EFFUSION WITH COMPRESSIVE ATELECTASIS RIGHT LOWER LOBE. ELEVATED RIGHT HEMIDIAPHRAGM. 11/02 Paracentesis, 10.2L removed 838 RBC, 142 WBC, 2%PMN, 94%[place] Cx - NTD 11/26/20 - S/P paracentesis - not fluid no sent to the lab DAVIDE vs CKD, Cr 2.4, improving HIV screen neg EtOH abuse, stopped drinking in Sep 2020 Fatty liver DM2 HTN Plan: Monitor off abx as he is aseptic Trend WBC if increasing again tomorrow will need to start abx 11/11 SP Zosyn #10 11/03 SP vanco #2 Monitor CBC/CMP Monitor temp curve, hemodynamics Monitor resp status D/w RN Thank you for this consult. [facility] will continue to follow. Subjective Allergies: Coded Allergies: No Known Allergies (Unverified , 10/02/16) Afebrile Mild Leukocytosis resolved Abd still distended but feeling better S/P paracentesis 11/27/20 Objective Last 24 Hour Vital Signs Date Time Temp Pulse Resp B/P (MAP) Pulse Ox O2 Delivery O2 Flow Rate FiO2 11/28/20 08:00 96 Nasal Cannula 3.0 32 11/28/20 06:50 97.8 11/28/20 04:00 97.8 98 18 111/65 (80) 98 11/28/20 00:00 98.4 91 17 111/66 (81) 100 11/27/20 21:14 Nasal Cannula 3.0 11/27/20 20:00 98.1 96 18 105/70 (82) 96 11/27/20 19:00 96 Nasal Cannula 3.0 32 11/27/20 16:00 98.3 99 18 119/87 (98) 96 11/27/20 15:40 98.1 11/27/20 12:00 98.1 99 18 119/72 (88) 95 Height (Feet): 6 Height (Inches): 1.00 Weight (Pounds): 200 Gen: NAD laying in bed HEENT: NCAT, EOMI Pulm: BL chest rise Abd: Distended, soft, +fluid wave Ext: No c/c/e Neuro: Awake, interactive Laboratory Tests Test 11/27/20 11:47 11/27/20 16:46 11/28/20 05:12 POC Whole Blood Glucose 108 MG/DL (74-106) H 107 MG/DL (74-106) H White Blood Count 9.4 K/UL (4.8-10.8) Red Blood Count 2.66 M/UL (4.70-6.10) L Hemoglobin 9.1 G/DL (14.2-18.0) L Hematocrit 27.7 % (42.0-52.0) L Mean Corpuscular Volume 104 FL (80-99) H Mean Corpuscular Hemoglobin 34.3 PG (27.0-31.0) H Mean Corpuscular Hemoglobin Concent 32.9 G/DL (32.0-36.0) Red Cell Distribution Width 17.9 % (11.6-14.8) H Platelet Count 213 K/UL (150-450) Mean Platelet Volume 5.1 FL (6.5-10.1) L Neutrophils (%) (Auto) 76.2 % (45.0-75.0) H Lymphocytes (%) (Auto) 11.2 % (20.0-45.0) L Monocytes (%) (Auto) 9.3 % (1.0-10.0) Eosinophils (%) (Auto) 1.5 % (0.0-3.0) Basophils (%) (Auto) 1.7 % (0.0-2.0) Sodium Level 134 MMOL/L (136-145) L Potassium Level 4.5 MMOL/L (3.5-5.1) Chloride Level 97 MMOL/L (98-107) L Carbon Dioxide Level 31 MMOL/L (21-32) Anion Gap 6 mmol/L (5-15) Blood Urea Nitrogen 16 mg/dL (7-18) Creatinine 0.9 MG/DL (0.55-1.30) Estimat Glomerular Filtration Rate > 60 mL/min (>60) Glucose Level 87 MG/DL (74-106) Calcium Level 8.7 MG/DL (8.5-10.1) Current Medications Medications (Trade) Dose Ordered Sig/Kylah Route PRN Reason Start Time Stop Time Status Last Admin Dose Admin Acetaminophen (Tylenol) 500 mg Q6H PRN ORAL Mild Pain 11/02/20 08:30 12/02/20 08:29 11/23/20 17:17 Acetaminophen (Tylenol) 500 mg Q6H PRN ORAL fever > 100.2 11/02/20 08:45 12/02/20 08:44 Acetaminophen/ Hydrocodone Bitart ([place] 5/325) 1 tab Q6H PRN ORAL Severe Pain (Pain Scale 7-10) 11/24/20 19:00 12/01/20 18:59 11/28/20 06:20 Allopurinol (Zyloprim) 200 mg DAILY ORAL 11/04/20 15:00 12/04/20 14:59 11/27/20 08:40 Clobetasol Propionate (Temovate) 1 applic TWICE A DAY TOPIC 11/21/20 13:30 02/19/21 13:29 11/27/20 18:14 Dextrose (Dextrose 50%) 25 ml Q30M PRN IV Hypoglycemia 11/01/20 18:30 01/30/21 18:29 Dextrose (Dextrose 50%) 50 ml Q30M PRN IV Hypoglycemia 11/01/20 18:30 01/30/21 18:29 Folic Acid (Folate) 3 mg DAILY ORAL 11/03/20 13:15 12/03/20 13:14 11/27/20 08:41 Furosemide (Lasix) 40 mg DAILY IV 11/27/20 06:30 12/27/20 06:29 11/27/20 06:38 Insulin Aspart (NovoLOG) BEFORE MEALS AND HS SUBQ 11/01/20 21:00 01/30/21 20:59 11/27/20 20:13 Lactulose (Cephulac) 20 gm BID ORAL 11/20/20 09:00 12/20/20 08:59 11/27/20 18:14 Magnesium Oxide (Mag-Ox 400mg) 400 mg THREE TIMES A DAY ORAL 11/13/20 13:00 12/13/20 12:59 11/27/20 18:14 Midodrine (Pro-Amatine) 10 mg Q8HR ORAL 11/02/20 14:00 01/31/21 13:59 11/28/20 05:48 Pantoprazole (Protonix) 40 mg DAILY ORAL 11/14/20 09:00 12/14/20 08:59 11/27/20 08:41 Spironolactone (Aldactone) 100 mg DAILY ORAL 11/16/20 09:00 12/16/20 08:59 11/27/20 08:41 Vitamin D (Vitamin D) 5,000 unit DAILY ORAL 11/16/20 09:00 12/16/20 08:59 11/27/20 08:40 Nazario Banks MD Nov 28, 2020 09:19
[2020-11-28] MEDS: Magnesium Oxide 400mg tab ORAL SCH ×3 (09:33→18:00)
[2020-11-28] MEDS: Vitamin D 1000 units Tab ORAL SCH (09:33)
[2020-11-28] MEDS: Spironolactone 50mg tab ORAL SCH (09:34)
[2020-11-28] MEDS: Allopurinol 100mg Tab ORAL SCH (09:34)
[2020-11-28] MEDS: Lactulose 20gm/30ml UDC ORAL SCH ×2 (09:34→18:00)
--- NOTE | 2020-11-28 09:59 | NUR ---
NURSE NOTES: Received report from ROXI Carpenter. Pt awake, alert and oriented. Breathing even and unlabored on NC 1L/min. Denied any pain at this time. IV is in placed intact and patent. Bed in lowest position, call light within reach. Will continue to monitor. Addendum: 11/28/20 at 1000 by Mirta Berry RN This note @[id number]
--- NOTE | 2020-11-28 11:19 | Internal Med Progress Note ---
Subjective Date of Service: Nov 28, 2020 Physician Name Case,Jered Attending Physician Ramon Coombs MD Current Medications Medications (Trade) Dose Ordered Sig/Kylah Route PRN Reason Start Time Stop Time Status Last Admin Dose Admin Acetaminophen (Tylenol) 500 mg Q6H PRN ORAL Mild Pain 11/02/20 08:30 12/02/20 08:29 11/23/20 17:17 Acetaminophen (Tylenol) 500 mg Q6H PRN ORAL fever > 100.2 11/02/20 08:45 12/02/20 08:44 Acetaminophen/ Hydrocodone Bitart ([place] 5/325) 1 tab Q6H PRN ORAL Severe Pain (Pain Scale 7-10) 11/24/20 19:00 12/01/20 18:59 11/28/20 06:20 Allopurinol (Zyloprim) 200 mg DAILY ORAL 11/04/20 15:00 12/04/20 14:59 11/28/20 09:34 Clobetasol Propionate (Temovate) 1 applic TWICE A DAY TOPIC 11/21/20 13:30 02/19/21 13:29 11/28/20 09:00 Dextrose (Dextrose 50%) 25 ml Q30M PRN IV Hypoglycemia 11/01/20 18:30 01/30/21 18:29 Dextrose (Dextrose 50%) 50 ml Q30M PRN IV Hypoglycemia 11/01/20 18:30 01/30/21 18:29 Folic Acid (Folate) 3 mg DAILY ORAL 11/03/20 13:15 12/03/20 13:14 11/28/20 09:34 Furosemide (Lasix) 40 mg DAILY IV 11/27/20 06:30 12/27/20 06:29 11/28/20 09:33 Insulin Aspart (NovoLOG) BEFORE MEALS AND HS SUBQ 11/01/20 21:00 01/30/21 20:59 11/27/20 20:13 Lactulose (Cephulac) 20 gm BID ORAL 11/20/20 09:00 12/20/20 08:59 11/28/20 09:34 Magnesium Oxide (Mag-Ox 400mg) 400 mg THREE TIMES A DAY ORAL 11/13/20 13:00 12/13/20 12:59 11/28/20 09:33 Midodrine (Pro-Amatine) 10 mg Q8HR ORAL 11/02/20 14:00 01/31/21 13:59 11/28/20 05:48 Pantoprazole (Protonix) 40 mg DAILY ORAL 11/14/20 09:00 12/14/20 08:59 11/28/20 09:34 Spironolactone (Aldactone) 100 mg DAILY ORAL 11/16/20 09:00 12/16/20 08:59 11/28/20 09:34 Vitamin D (Vitamin D) 5,000 unit DAILY ORAL 11/16/20 09:00 12/16/20 08:59 11/28/20 09:33 Allergies: Coded Allergies: No Known Allergies (Unverified , 10/02/16) ROS Limited/Unobtainable: No Constitutional: Reports: no symptoms HEENT: Reports: no symptoms Cardiovascular: Reports: no symptoms Respiratory: Reports: no symptoms Gastrointestinal/Abdominal: Reports: no symptoms Genitourinary: Reports: no symptoms Neurologic/Psychiatric: Reports: no symptoms Subjective 60 YO M with history of alcohol dependence admitted with shortness of breath. Now respiratroy failure. Cover for Int Med-DR Coombs. S/P paracentesis 11/02/20 and repeat on 11/26/20 Objective Last Vital Signs Date Time Temp Pulse Resp B/P (MAP) Pulse Ox O2 Delivery O2 Flow Rate FiO2 11/28/20 09:00 Nasal Cannula 1.0 11/28/20 08:00 96 32 11/28/20 08:00 98.3 98 18 96/56 (69) Laboratory Tests Test 11/27/20 11:47 11/27/20 16:46 11/28/20 05:12 POC Whole Blood Glucose 108 MG/DL (74-106) H 107 MG/DL (74-106) H White Blood Count 9.4 K/UL (4.8-10.8) Red Blood Count 2.66 M/UL (4.70-6.10) L Hemoglobin 9.1 G/DL (14.2-18.0) L Hematocrit 27.7 % (42.0-52.0) L Mean Corpuscular Volume 104 FL (80-99) H Mean Corpuscular Hemoglobin 34.3 PG (27.0-31.0) H Mean Corpuscular Hemoglobin Concent 32.9 G/DL (32.0-36.0) Red Cell Distribution Width 17.9 % (11.6-14.8) H Platelet Count 213 K/UL (150-450) Mean Platelet Volume 5.1 FL (6.5-10.1) L Neutrophils (%) (Auto) 76.2 % (45.0-75.0) H Lymphocytes (%) (Auto) 11.2 % (20.0-45.0) L Monocytes (%) (Auto) 9.3 % (1.0-10.0) Eosinophils (%) (Auto) 1.5 % (0.0-3.0) Basophils (%) (Auto) 1.7 % (0.0-2.0) Sodium Level 134 MMOL/L (136-145) L Potassium Level 4.5 MMOL/L (3.5-5.1) Chloride Level 97 MMOL/L (98-107) L Carbon Dioxide Level 31 MMOL/L (21-32) Anion Gap 6 mmol/L (5-15) Blood Urea Nitrogen 16 mg/dL (7-18) Creatinine 0.9 MG/DL (0.55-1.30) Estimat Glomerular Filtration Rate > 60 mL/min (>60) Glucose Level 87 MG/DL (74-106) Calcium Level 8.7 MG/DL (8.5-10.1) Intake and Output 11/27/20 11/28/20 19:00 07:00 Intake Total 600 ml 250 ml Output Total 450 ml 500 ml Balance 150 ml -250 ml Intake Oral 250 ml Other 600 ml Output Urine Total 450 ml 500 ml Objective Objective General: No acute distress, awake and alert HEENT: NCAT, sclera anicteric, PERRL, EOMI. Neck: Supple, no significant jugular venous distention, Lungs: Nasal canula; Fair inspiratory effort, , no Wheeze or Rales. Heart: Regular rate and rhythm, normal S1/S2, no murmurs Abdomen: soft, nontender, +distended. positive fluid shift, bowel sound present. / Rectal: Refused and deferred. Extremities: No Cyanosis , clubbing or edema. Neuro: A&O x 3, Able to move all extremities Skin: warm, no rash Assessment/Plan Assessment/Plan Assessment/Plan Assessment/Plan Sepsis Acute Hypoxia on BiPAP >> NRB mask >> venturi mask>>nasal canula alcohol abuse Liver Cirrhosis, Fatty liver Massive ascites renal failure DM2 HTN Plan: ABX=S/P vanco and Zosyn High volume paracentesis, COVID PCR=Neg GI=Dr Encarnacion Nephrol=Dr Pozo S/P paracentesis 11/02/20 and repeat 11/26/20 ID=Dr Banks Discharge planning Jered Case MD Nov 28, 2020 11:19
[2020-11-28 12:00] VITALS: BP 110/69
--- NOTE | 2020-11-28 12:17 | Nephrology Progress Note ---
Assessment/Plan Problem List: (1) Renal failure (ARF), acute on chronic (2) Electrolyte imbalance (3) Hypokalemia (4) Cirrhosis (5) DMII (diabetes mellitus, type 2) (6) Anemia (7) HTN (hypertension) Assessment Renal failure most likely acute on chronic Electrolyte imbalances, hypokalemia Sepsis Hepatic encephalopathy, ascites, fatty liver Anemia History of EtOH abuse, history of tobacco abuse, history of drug abuse Diabetes mellitus type 2 Hypertension Lymphopenia, leukocytosis, hypoxia Plan November 28: Labs reviewed. Renal parameters stable. Serum sodium 134. Continue per GI. November 27: Labs reviewed. Renal parameters stable. Continue per consultants. November 25: No CHEM panel drawn today. Patient clinically appears to be stable. Will continue to monitor electrolytes and renal parameters while in- house. Per orders. November 24: Labs reviewed. Renal parameters stable. Continues to have ascites requiring periodic Paracentesis. Not much to add from renal standpoint to view. Medication list reviewed. November 23: No CHEM panel drawn today. Clinically stable. Meds reviewed. Continue per current regimen. Check lab tomorrow. November 22: Labs reviewed. Electrolytes reasonably well-maintained. Continue per current treatment plan. November 21: Labs reviewed. Abnormal electrolytes addressed. Neutra-Phos discontinued. Continue per current management. November 20: Labs reviewed. Renal parameters stable. Massive ascites and GI discomfort persists. Medication list reviewed. November 19: Labs reviewed. Serum sodium 133. Normal saline 500 cc bolus given. Continue per consultants. November 18: Labs reviewed. Abnormal electrolytes addressed. Continue per consultants November 17: Labs reviewed. Renal parameters stable. Medication list reviewed. On Lasix and Aldactone. We will continue to monitor blood chemistries and electrolytes. November 16: Labs reviewed. Electrolytes within normal limit now. Continue her current management. November 15: Labs reviewed. Low magnesium addressed. Continue per current management. November 14: Labs reviewed. Renal parameters are stable continue per current management. Vitamin D supplement given. November 13: Labs reviewed. Normal renal parameters. Abnormal electrolytes noted and addressed. Vitamin D level results still pending November 12: Labs reviewed. Serum creatinine now within normal limits. Much improved from renal standpoint of view. November 11: Labs reviewed. Serum creatinine 1.6. Stable from renal standpoint reviewed. November 10: Labs reviewed. Serum creatinine lowered to 1.9. Continue to mo nitor renal parameters. Magnesium supplement ordered. November 09: No CHEM panel drawn today. Will DC Hernandez due to pain in the urethra. We will continue to monitor renal parameters. Continue per consultants. November 08: Labs reviewed. Serum creatinine 2.3 unchanged. Electrolytes within normal limit. Continue per consultants. November 07: Labs reviewed. Serum creatinine down to 2.3. Continue to monitor electrolytes. Low magnesium addressed. November 06: Labs reviewed. Serum creatinine 2.5 unchanged. Continue per consultants. November 05: Labs reviewed. Serum creatinine plateauing. Status quo. Electrolyte acceptable. Now on oxygen by cannula. Continue per consultants. November 04 labs reviewed. Patient full code. On Venturi mask. Low potassium a ddressed. Serum creatinine rising. Continue to monitor renal parameters. Allopurinol initiated November 03: Labs reviewed. Medication list reviewed. Abnormal electrolyte addressed. Continue monitor renal parameters. Continue per consultants. Previously: Trial of 3% saline and albumin bolus Potassium supplement Monitor renal parameters, ammonia, electrolytes ordered Subjective ROS Limited/Unobtainable: No Constitutional: Reports: malaise Objective Objective Last 24 Hour Vital Signs Date Time Temp Pulse Resp B/P (MAP) Pulse Ox O2 Delivery O2 Flow Rate FiO2 11/28/20 09:00 Nasal Cannula 1.0 11/28/20 08:00 96 Nasal Cannula 3.0 32 11/28/20 08:00 98.3 98 18 96/56 (69) 95 11/28/20 06:50 97.8 11/28/20 04:00 97.8 98 18 111/65 (80) 98 11/28/20 00:00 98.4 91 17 111/66 (81) 100 11/27/20 21:14 Nasal Cannula 3.0 11/27/20 20:00 98.1 96 18 105/70 (82) 96 11/27/20 19:00 96 Nasal Cannula 3.0 32 11/27/20 16:00 98.3 99 18 119/87 (98) 96 11/27/20 15:40 98.1 Laboratory Tests Test 11/27/20 16:46 11/28/20 05:12 11/28/20 11:30 POC Whole Blood Glucose 107 MG/DL (74-106) H 145 MG/DL (74-106) H White Blood Count 9.4 K/UL (4.8-10.8) Red Blood Count 2.66 M/UL (4.70-6.10) L Hemoglobin 9.1 G/DL (14.2-18.0) L Hematocrit 27.7 % (42.0-52.0) L Mean Corpuscular Volume 104 FL (80-99) H Mean Corpuscular Hemoglobin 34.3 PG (27.0-31.0) H Mean Corpuscular Hemoglobin Concent 32.9 G/DL (32.0-36.0) Red Cell Distribution Width 17.9 % (11.6-14.8) H Platelet Count 213 K/UL (150-450) Mean Platelet Volume 5.1 FL (6.5-10.1) L Neutrophils (%) (Auto) 76.2 % (45.0-75.0) H Lymphocytes (%) (Auto) 11.2 % (20.0-45.0) L Monocytes (%) (Auto) 9.3 % (1.0-10.0) Eosinophils (%) (Auto) 1.5 % (0.0-3.0) Basophils (%) (Auto) 1.7 % (0.0-2.0) Sodium Level 134 MMOL/L (136-145) L Potassium Level 4.5 MMOL/L (3.5-5.1) Chloride Level 97 MMOL/L (98-107) L Carbon Dioxide Level 31 MMOL/L (21-32) Anion Gap 6 mmol/L (5-15) Blood Urea Nitrogen 16 mg/dL (7-18) Creatinine 0.9 MG/DL (0.55-1.30) Estimat Glomerular Filtration Rate > 60 mL/min (>60) Glucose Level 87 MG/DL (74-106) Calcium Level 8.7 MG/DL (8.5-10.1) Current Medications Medications (Trade) Dose Ordered Sig/Kylah Route PRN Reason Start Time Stop Time Status Last Admin Dose Admin Acetaminophen (Tylenol) 500 mg Q6H PRN ORAL Mild Pain 11/02/20 08:30 12/02/20 08:29 11/23/20 17:17 Acetaminophen (Tylenol) 500 mg Q6H PRN ORAL fever > 100.2 11/02/20 08:45 12/02/20 08:44 Acetaminophen/ Hydrocodone Bitart ([place] 5/325) 1 tab Q6H PRN ORAL Severe Pain (Pain Scale 7-10) 11/24/20 19:00 12/01/20 18:59 11/28/20 06:20 Allopurinol (Zyloprim) 200 mg DAILY ORAL 11/04/20 15:00 12/04/20 14:59 11/28/20 09:34 Clobetasol Propionate (Temovate) 1 applic TWICE A DAY TOPIC 11/21/20 13:30 02/19/21 13:29 11/28/20 09:00 Dextrose (Dextrose 50%) 25 ml Q30M PRN IV Hypoglycemia 11/01/20 18:30 01/30/21 18:29 Dextrose (Dextrose 50%) 50 ml Q30M PRN IV Hypoglycemia 11/01/20 18:30 01/30/21 18:29 Folic Acid (Folate) 3 mg DAILY ORAL 11/03/20 13:15 12/03/20 13:14 11/28/20 09:34 Furosemide (Lasix) 40 mg DAILY IV 11/27/20 06:30 12/27/20 06:29 11/28/20 09:33 Insulin Aspart (NovoLOG) BEFORE MEALS AND HS SUBQ 11/01/20 21:00 01/30/21 20:59 11/28/20 11:37 Lactulose (Cephulac) 20 gm BID ORAL 11/20/20 09:00 12/20/20 08:59 11/28/20 09:34 Magnesium Oxide (Mag-Ox 400mg) 400 mg THREE TIMES A DAY ORAL 11/13/20 13:00 12/13/20 12:59 11/28/20 09:33 Midodrine (Pro-Amatine) 10 mg Q8HR ORAL 11/02/20 14:00 01/31/21 13:59 11/28/20 05:48 Pantoprazole (Protonix) 40 mg DAILY ORAL 11/14/20 09:00 12/14/20 08:59 11/28/20 09:34 Spironolactone (Aldactone) 100 mg DAILY ORAL 11/16/20 09:00 12/16/20 08:59 11/28/20 09:34 Vitamin D (Vitamin D) 5,000 unit DAILY ORAL 11/16/20 09:00 12/16/20 08:59 11/28/20 09:33 Intake and Output 11/27/20 11/28/20 19:00 07:00 Intake Total 600 ml 250 ml Output Total 450 ml 500 ml Balance 150 ml -250 ml Intake Oral 250 ml Other 600 ml Output Urine Total 450 ml 500 ml Laboratory Tests 11/27/20 16:46: POC Whole Blood Glucose 107H 11/28/20 05:12: White Blood Count 9.4, Red Blood Count 2.66L, Hemoglobin 9.1L, Hematocrit 27.7L, Mean Corpuscular Volume 104H, Mean Corpuscular Hemoglobin 34.3H, Mean Corpuscular Hemoglobin Concent 32.9, Red Cell Distribution Width 17.9H, Platelet Count 213, Mean Platelet Volume 5.1L, Neutrophils (%) (Auto) 76.2H, Lymphocytes (%) (Auto) 11.2L, Monocytes (%) (Auto) 9.3, Eosinophils (%) (Auto) 1.5, Basophils (%) (Auto) 1.7, Sodium Level 134L, Potassium Level 4.5, Chloride Level 97L, Carbon Dioxide Level 31, Anion Gap 6, Blood Urea Nitrogen 16, Creatinine 0.9, Estimat Glomerular Filtration Rate > 60, Glucose Level 87, Calcium Level 8.7 11/28/20 11:30: POC Whole Blood Glucose 145H Height (Feet): 6 Height (Inches): 1.00 Weight (Pounds): 200 General Appearance: no apparent distress Cardiovascular: tachycardia Respiratory/Chest: decreased breath sounds Abdomen: distended Kalin Pozo MD Nov 28, 2020 12:17
--- NOTE | 2020-11-28 13:11 | Surgery Progress Note ---
Surgery Progress Note Subjective Symptoms: improved, tolerating diet, passing flatus Objective Last 24 Hour Vital Signs Date Time Temp Pulse Resp B/P (MAP) Pulse Ox O2 Delivery O2 Flow Rate FiO2 11/28/20 12:00 97.8 97 18 110/69 (83) 95 11/28/20 09:00 Nasal Cannula 1.0 11/28/20 08:00 96 Nasal Cannula 3.0 32 11/28/20 08:00 98.3 98 18 96/56 (69) 95 11/28/20 06:50 97.8 11/28/20 04:00 97.8 98 18 111/65 (80) 98 11/28/20 00:00 98.4 91 17 111/66 (81) 100 11/27/20 21:14 Nasal Cannula 3.0 11/27/20 20:00 98.1 96 18 105/70 (82) 96 11/27/20 19:00 96 Nasal Cannula 3.0 32 11/27/20 16:00 98.3 99 18 119/87 (98) 96 11/27/20 15:40 98.1 I&O Intake and Output 11/27/20 11/28/20 19:00 07:00 Intake Total 600 ml 250 ml Output Total 450 ml 500 ml Balance 150 ml -250 ml Intake Oral 250 ml Other 600 ml Output Urine Total 450 ml 500 ml Cardiovascular: RSR Respiratory: decreased breath sounds Abdomen: soft, distended, non-tender Extremities: no edema, no tenderness, no cyanosis Laboratory Tests Test 11/27/20 16:46 11/28/20 05:12 11/28/20 11:30 POC Whole Blood Glucose 107 MG/DL (74-106) H 145 MG/DL (74-106) H White Blood Count 9.4 K/UL (4.8-10.8) Red Blood Count 2.66 M/UL (4.70-6.10) L Hemoglobin 9.1 G/DL (14.2-18.0) L Hematocrit 27.7 % (42.0-52.0) L Mean Corpuscular Volume 104 FL (80-99) H Mean Corpuscular Hemoglobin 34.3 PG (27.0-31.0) H Mean Corpuscular Hemoglobin Concent 32.9 G/DL (32.0-36.0) Red Cell Distribution Width 17.9 % (11.6-14.8) H Platelet Count 213 K/UL (150-450) Mean Platelet Volume 5.1 FL (6.5-10.1) L Neutrophils (%) (Auto) 76.2 % (45.0-75.0) H Lymphocytes (%) (Auto) 11.2 % (20.0-45.0) L Monocytes (%) (Auto) 9.3 % (1.0-10.0) Eosinophils (%) (Auto) 1.5 % (0.0-3.0) Basophils (%) (Auto) 1.7 % (0.0-2.0) Sodium Level 134 MMOL/L (136-145) L Potassium Level 4.5 MMOL/L (3.5-5.1) Chloride Level 97 MMOL/L (98-107) L Carbon Dioxide Level 31 MMOL/L (21-32) Anion Gap 6 mmol/L (5-15) Blood Urea Nitrogen 16 mg/dL (7-18) Creatinine 0.9 MG/DL (0.55-1.30) Estimat Glomerular Filtration Rate > 60 mL/min (>60) Glucose Level 87 MG/DL (74-106) Calcium Level 8.7 MG/DL (8.5-10.1) Plan Problems: (1) Deep tissue injury Assessment & Plan: Pt presented on admission with DTPI Thoracic Spine(L)1.8cm x (W)1cm. Base of Pressure Injury is purpuric with surrounding non-blanchable erythema. Pt complained of tenderness at site. Non-Blanchable erythema without induration noted to Sacrum,R and L Gluteal cheeks including Bilat Ischial tuberosities. Rocker bottom foot noted to Both R and L feet. Both heels are callused,dry and easily blanchable. Tx.Plan: Apply Cavilon Skin Barrier To Thoracic DTPI. Cover with Optifoam drsg. Change every 3 days and prn. Apply Moisture Barrier Paste to Sacrum. Cover with Optifoam drsg. Change every 3 days and prn. Apply Cavilon Skin Barrier to R and L gluteal cheeks and Bilat Ischial tuberosities with each Incontinence care. Reposition at least every 2Hours or as tolerated. Off-load heels with pillow. (2) Hepatic encephalopathy (3) Hypokalemia (4) Ascites (5) Severe sepsis (6) Cirrhosis Assessment & Plan: distended again may need repeat para gi input There is compressive atelectasis right lower lobe. Small right effusion noted. Right hemidiaphragm is elevated. There is a large amount of ascites. Slight nodularity of the hepatic contour n oted suggestive of underlying cirrhotic changes. Spleen contains some scattered granulomas. Gallbladder is isodense to liver likely containing tumefactive sludge. The pancreas is unremarkable. Adrenals are normal in morphology. The kidneys are normal in size, shape and axis. Small bowel loops are nondistended. The colon is also nondistended with average amount of stool. The appendix is not visualized. There is no free air. No pathologic adenopathy demonstrated. Urinary bladder appears unremarkable. Degenerative changes of the lumbar spine noted. IMPRESSION: CIRRHOSIS WITH LARGE AMOUNT OF ASCITES. SPLENIC GRANULOMAS. SLUDGE IN THE GALLBLADDER. SMALL RIGHT PLEURAL EFFUSION WITH COMPRESSIVE ATELECTASIS RIGHT LOWER LOBE. ELEVATED RIGHT HEMIDIAPHRAGM. (7) AMS (altered mental status) (8) Electrolyte imbalance (9) Renal failure (ARF), acute on chronic (10) Anemia (11) HTN (hypertension) (12) DMII (diabetes mellitus, type 2) Theodore Alves Nov 28, 2020 13:11
[2020-11-28 16:00] VITALS: BP 99/64
--- NOTE | 2020-11-28 17:38 | NUR ---
CASE MANAGEMENT:REVIEW 11/28/2020 SI: SEPSIS. HYPOXIA. ETOH ABUSE. ASCITES VS: T 97.8 HR 95 RR 18 B/P 99/64 SATS 95% ON 1L/NC LABS: NA 134 CL 97 GLU 145 IS: LACTULOSE PO BID PROTONIX PO QD PHOSPHA PO TID MAG OXIDE PO TID ALDACTONE PO QD IV LASIX QD ALLOPURINOL PO QD FOLATE PO QD MIDODRINE PO Q8HRS HEPARIN SQ Q12H : MED/SURG STATUS
--- NOTE | 2020-11-28 19:36 | NUR ---
NURSE HAND-OFF: Important Events on Shift:[Pt not able to stand up during physical therapy] Patient Status: [] Diet: CCHO Pending Orders: [] Pending Results/Labs:[] Pending MD notification:[] Latest Vital Signs: Temperature 97.8 , Pulse 95 , B/P 99 /64 , Respiratory Rate 18 , O2 SAT 95 , Bi-pap, O2 Flow Rate 1.0 . Vital Sign Comment: [stable] Latest Childs Fall Score: 70 Fall Risk: High Risk Safety Measures: Call light Within Reach, Bed Alarm Zone 2, Side Rails Side Rails x3, Bed position Low and Locked. Fall Precautions: Yellow Socks Yellow Gown Door Sign Patient Fall Education Report given to [ROXI Carty].
--- NOTE | 2020-11-28 19:45 | NUR ---
NURSE NOTES: Received report from Kathie DIANE. Patient is awake, alert and oriented x4. On NC 1L, breathing is even and unlabored. No complains of pain or distress noted. Condom cath intact and draining well. Sacral optifoam intact and clean. IV right FA intact and patent. Bed low and locked. Call light within reach.
[2020-11-28 20:00] VITALS: BP 108/78
[2020-11-29] VITALS: BP 106/69
[2020-11-29 04:00] VITALS: BP 109/73
[2020-11-29] MEDS: Midodrine 10mg tab ORAL SCH ×3 (05:02→21:00)
[2020-11-29] MEDS: NovoLOG Insulin Flexpen SUBQ SCH ×4 (05:46→21:00)
--- NOTE | 2020-11-29 07:11 | NUR ---
NURSE HAND-OFF: Important Events on Shift: No new event Patient Status: Stable Diet: CCHO medium Pending Orders: [] Pending Results/Labs:[] Pending MD notification:[] Latest Vital Signs: Temperature 98.1 , Pulse 92 , B/P 109 /73 , Respiratory Rate 18 , O2 SAT 98 , Bi-pap, O2 Flow Rate 1.0 . Vital Sign Comment: VS stable Latest Childs Fall Score: 70 Fall Risk: High Risk Safety Measures: Call light Within Reach, Bed Alarm Zone 2, Side Rails Side Rails x3, Bed position Low and Locked. Fall Precautions: Yellow Socks Yellow Gown Door Sign Patient Fall Education Report given to Aidan DIANE.
--- NOTE | 2020-11-29 07:51 | NUR ---
NURSE NOTES: Received report from Carloz Potts RN. Patient sitting up in bed, awake and alert, watching television, on 1 liters nasal cannula, side rails up x 3, bed in lowest position, wheels locked, call light within reach, c/o pain, will follow-up with pain medication.
[2020-11-29 08:00] VITALS: BP 113/68
[2020-11-29] MEDS: Lactulose 20gm/30ml UDC ORAL SCH ×2 (08:16→18:00)
[2020-11-29] MEDS: HYDROcodone/Acetamin 5/325 tab ORAL PRN ×2 (08:17→18:07)
[2020-11-29] MEDS: Vitamin D 1000 units Tab ORAL SCH (08:18)
[2020-11-29] MEDS: Spironolactone 50mg tab ORAL SCH (08:19)
[2020-11-29] MEDS: Allopurinol 100mg Tab ORAL SCH (08:19)
[2020-11-29] MEDS: Magnesium Oxide 400mg tab ORAL SCH ×3 (08:19→18:00)
[2020-11-29] MEDS: CLOBETASOL 0.05% TOPIC SCH ×2 (08:22→18:08)
--- NOTE | 2020-11-29 08:24 | Infectious Diseases Prog Note ---
Assessment/Plan 60yo M with: Sepsis Afebrile Hypoxia on BiPAP >> NRB mask >> venti mask Leukocytosis to 14, improving Lymphopenia 11/01 BCx NTD COVID PCR neg CXR: Elevated right hemidiaphragm. Possible right basilar airspace disease and right effusion. CTH: No acute process EtOH abuse Cirrhosis, Fatty liver Massive ascites Elevated AST to 48 Acute hep panel neg 11/01 CT A/P: CIRRHOSIS WITH LARGE AMOUNT OF ASCITES. SPLENIC GRANULOMAS. SLUDGE IN THE GALLBLADDER. SMALL RIGHT PLEURAL EFFUSION WITH COMPRESSIVE ATELECTASIS RIGHT LOWER LOBE. ELEVATED RIGHT HEMIDIAPHRAGM. 11/02 Paracentesis, 10.2L removed 838 RBC, 142 WBC, 2%PMN, 94%[place]'s Cx - NTD 11/26/20 - S/P paracentesis - not fluid no sent to the lab [facility] vs CKD, Cr 2.4, improving HIV screen neg EtOH abuse, stopped drinking in Sep 2020 Fatty liver DM2 HTN Plan: Monitor off abx Trend WBC if increasing again tomorrow will need to start abx 11/11 SP Zosyn #10 11/03 SP vanco #2 Monitor CBC/CMP Monitor temp curve, hemodynamics Monitor resp status D/w RN Thank you for this consult. [facility] will continue to follow. Subjective Allergies: Coded Allergies: No Known Allergies (Unverified , 10/02/16) Afebrile No Leukocytosis Comfortable Objective Last 24 Hour Vital Signs Date Time Temp Pulse Resp B/P (MAP) Pulse Ox O2 Delivery O2 Flow Rate FiO2 11/29/20 08:00 97.5 99 16 113/68 (83) 99 11/29/20 04:00 98.1 92 18 109/73 (85) 98 11/29/20 00:00 98.3 93 18 106/69 (81) 98 11/28/20 21:00 Nasal Cannula 1.0 11/28/20 21:00 97 Nasal Cannula 1.0 24 11/28/20 20:00 98.1 110 22 108/78 (88) 97 11/28/20 16:00 97.8 95 18 99/64 (76) 95 11/28/20 14:30 97.8 11/28/20 12:00 97.8 97 18 110/69 (83) 95 11/28/20 09:00 Nasal Cannula 1.0 Height (Feet): 6 Height (Inches): 1.00 Weight (Pounds): 200 Gen: NAD HEENT: NCAT, EOMI Pulm: BL chest rise Abd: Distended, soft, +fluid wave Ext: No c/c/e Neuro: Awake, interactive Laboratory Tests Test 11/28/20 11:30 11/28/20 16:03 11/28/20 20:07 11/29/20 05:42 POC Whole Blood Glucose 145 MG/DL (74-106) H 135 MG/DL (74-106) H 121 MG/DL (74-106) H 97 MG/DL (74-106) Current Medications Medications (Trade) Dose Ordered Sig/Kylah Route PRN Reason Start Time Stop Time Status Last Admin Dose Admin Acetaminophen (Tylenol) 500 mg Q6H PRN ORAL Mild Pain 11/02/20 08:30 12/02/20 08:29 11/23/20 17:17 Acetaminophen (Tylenol) 500 mg Q6H PRN ORAL fever > 100.2 11/02/20 08:45 12/02/20 08:44 Acetaminophen/ Hydrocodone Bitart ([place] 5/325) 1 tab Q6H PRN ORAL Severe Pain (Pain Scale 7-10) 11/24/20 19:00 12/01/20 18:59 11/29/20 08:17 Allopurinol (Zyloprim) 200 mg DAILY ORAL 11/04/20 15:00 12/04/20 14:59 11/29/20 08:19 Clobetasol Propionate (Temovate) 1 applic TWICE A DAY TOPIC 11/21/20 13:30 02/19/21 13:29 11/29/20 08:22 Dextrose (Dextrose 50%) 25 ml Q30M PRN IV Hypoglycemia 11/01/20 18:30 01/30/21 18:29 Dextrose (Dextrose 50%) 50 ml Q30M PRN IV Hypoglycemia 11/01/20 18:30 01/30/21 18:29 Folic Acid (Folate) 3 mg DAILY ORAL 11/03/20 13:15 12/03/20 13:14 11/29/20 08:19 Furosemide (Lasix) 40 mg DAILY IV 11/27/20 06:30 12/27/20 06:29 11/29/20 08:17 Insulin Aspart (NovoLOG) BEFORE MEALS AND HS SUBQ 11/01/20 21:00 01/30/21 20:59 11/28/20 11:37 Lactulose (Cephulac) 20 gm BID ORAL 11/20/20 09:00 12/20/20 08:59 11/29/20 08:16 Magnesium Oxide (Mag-Ox 400mg) 400 mg THREE TIMES A DAY ORAL 11/13/20 13:00 12/13/20 12:59 11/29/20 08:19 Midodrine (Pro-Amatine) 10 mg Q8HR ORAL 11/02/20 14:00 01/31/21 13:59 11/28/20 05:48 Pantoprazole (Protonix) 40 mg DAILY ORAL 11/14/20 09:00 12/14/20 08:59 11/29/20 08:17 Spironolactone (Aldactone) 100 mg DAILY ORAL 11/16/20 09:00 12/16/20 08:59 11/29/20 08:19 Vitamin D (Vitamin D) 5,000 unit DAILY ORAL 11/16/20 09:00 12/16/20 08:59 11/29/20 08:18 Nazario Banks MD Nov 29, 2020 08:24
[2020-11-29 10:18] LABS: BASOPHILS % (AUTO) 1.9 % (0.0-2.0); EOSINOPHILS % (AUTO) 1.2 % (0.0-3.0); HEMATOCRIT 29.1 % (42.0-52.0); HEMOGLOBIN 9.3 G/DL (14.2-18.0); LYMPHOCYTES % (AUTO) 9.8 % (20.0-45.0); MEAN CORPUSCULAR VOLUME 106 FL (80-99); MONOCYTES % (AUTO) 11.2 % (1.0-10.0); NEUTROPHILS % (AUTO) 75.8 % (45.0-75.0); PLATELET COUNT 246 K/UL (150-450); RED BLOOD COUNT 2.74 M/UL (4.70-6.10); RED CELL DISTRIBUTION WIDTH 17.4 % (11.6-14.8); WHITE BLOOD COUNT 8.7 K/UL (4.8-10.8)
[2020-11-29 11:01] LABS: ANION GAP 4 mmol/L (5-15); BLOOD UREA NITROGEN 16 mg/dL (7-18); CARBON DIOXIDE 34 MMOL/L (21-32); CHLORIDE 96 MMOL/L (98-107); POTASSIUM 4.1 MMOL/L (3.5-5.1); SODIUM 134 MMOL/L (136-145)
[2020-11-29 12:00] VITALS: BP 110/72
--- NOTE | 2020-11-29 12:01 | Surgery Progress Note ---
Surgery Progress Note Subjective Additional Comments Patient seen examined bedside. States abdominal exam feels much better. Abdomen is fairly soft not distended anymore. States he is working on his diet. No nausea vomiting fever chills labs noted Objective Last 24 Hour Vital Signs Date Time Temp Pulse Resp B/P (MAP) Pulse Ox O2 Delivery O2 Flow Rate FiO2 11/29/20 09:00 Nasal Cannula 1.0 11/29/20 08:47 97.5 11/29/20 08:00 97.5 99 16 113/68 (83) 99 11/29/20 04:00 98.1 92 18 109/73 (85) 98 11/29/20 00:00 98.3 93 18 106/69 (81) 98 11/28/20 21:00 Nasal Cannula 1.0 11/28/20 21:00 97 Nasal Cannula 1.0 24 11/28/20 20:00 98.1 110 22 108/78 (88) 97 11/28/20 16:00 97.8 95 18 99/64 (76) 95 11/28/20 14:30 97.8 I&O Intake and Output 11/28/20 11/29/20 19:00 07:00 Intake Total 720 ml 400 ml Output Total 900 ml 900 ml Balance -180 ml -500 ml Intake Oral 720 ml 400 ml Output Urine Total 900 ml 900 ml # Bowel Movements 1 2 Dressing: saturated Cardiovascular: RSR Respiratory: decreased breath sounds Abdomen: soft, distended, non-tender, present bowel sounds Extremities: no edema, no tenderness, no cyanosis Laboratory Tests Test 11/28/20 16:03 11/28/20 20:07 11/29/20 05:42 11/29/20 09:20 POC Whole Blood Glucose 135 MG/DL (74-106) H 121 MG/DL (74-106) H 97 MG/DL (74-106) White Blood Count 8.7 K/UL (4.8-10.8) Red Blood Count 2.74 M/UL (4.70-6.10) L Hemoglobin 9.3 G/DL (14.2-18.0) L Hematocrit 29.1 % (42.0-52.0) L Mean Corpuscular Volume 106 FL (80-99) H Mean Corpuscular Hemoglobin 33.8 PG (27.0-31.0) H Mean Corpuscular Hemoglobin Concent 31.9 G/DL (32.0-36.0) L Red Cell Distribution Width 17.4 % (11.6-14.8) H Platelet Count 246 K/UL (150-450) Mean Platelet Volume 5.4 FL (6.5-10.1) L Neutrophils (%) (Auto) 75.8 % (45.0-75.0) H Lymphocytes (%) (Auto) 9.8 % (20.0-45.0) L Monocytes (%) (Auto) 11.2 % (1.0-10.0) H Eosinophils (%) (Auto) 1.2 % (0.0-3.0) Basophils (%) (Auto) 1.9 % (0.0-2.0) Sodium Level 134 MMOL/L (136-145) L Potassium Level 4.1 MMOL/L (3.5-5.1) Chloride Level 96 MMOL/L (98-107) L Carbon Dioxide Level 34 MMOL/L (21-32) H Anion Gap 4 mmol/L (5-15) L Blood Urea Nitrogen 16 mg/dL (7-18) Creatinine 1.0 MG/DL (0.55-1.30) Estimat Glomerular Filtration Rate > 60 mL/min (>60) Glucose Level 137 MG/DL (74-106) H Calcium Level 9.0 MG/DL (8.5-10.1) Plan Problems: (1) Deep tissue injury Assessment & Plan: Pt presented on admission with DTPI Thoracic Spine(L)1.8cm x (W)1cm. Base of Pressure Injury is purpuric with surrounding non-blanchable erythema. Pt complained of tenderness at site. Non-Blanchable erythema without induration noted to Sacrum,R and L Gluteal cheeks including Bilat Ischial tuberosities. Rocker bottom foot noted to Both R and L feet. Both heels are callused,dry and easily blanchable. Tx.Plan: Apply Cavilon Skin Barrier To Thoracic DTPI. Cover with Optifoam drsg. Change every 3 days and prn. Apply Moisture Barrier Paste to Sacrum. Cover with Optifoam drsg. Change every 3 days and prn. Apply Cavilon Skin Barrier to R and L gluteal cheeks and Bilat Ischial tuberosities with each Incontinence care. Reposition at least every 2Hours or as tolerated. Off-load heels with pillow. (2) Hepatic encephalopathy (3) Hypokalemia (4) Ascites (5) Severe sepsis (6) Cirrhosis Assessment & Plan: distended again may need repeat para gi input There is compressive atelectasis right lower lobe. Small right effusion noted. Right hemidiaphragm is elevated. There is a large amount of ascites. Slight nodularity of the hepatic contour not ed suggestive of underlying cirrhotic changes. Spleen contains some scattered granulomas. Gallbladder is isodense to liver likely containing tumefactive sludge. The pancreas is unremarkable. Adrenals are normal in morphology. The kidneys are normal in size, shape and axis. Small bowel loops are nondistended. The colon is also nondistended with average amount of stool. The appendix is not visualized. There is no free air. No pathologic adenopathy demonstrated. Urinary bladder appears unremarkable. Degenerative changes of the lumbar spine noted. IMPRESSION: CIRRHOSIS WITH LARGE AMOUNT OF ASCITES. SPLENIC GRANULOMAS. SLUDGE IN THE GALLBLADDER. SMALL RIGHT PLEURAL EFFUSION WITH COMPRESSIVE ATELECTASIS RIGHT LOWER LOBE. ELEVATED RIGHT HEMIDIAPHRAGM. (7) AMS (altered mental status) (8) Electrolyte imbalance (9) Renal failure (ARF), acute on chronic (10) Anemia (11) HTN (hypertension) (12) DMII (diabetes mellitus, type 2) Theodore Alves Nov 29, 2020 12:01
--- NOTE | 2020-11-29 12:03 | Nephrology Progress Note ---
Assessment/Plan Problem List: (1) Renal failure (ARF), acute on chronic (2) Electrolyte imbalance (3) Hypokalemia (4) Cirrhosis (5) DMII (diabetes mellitus, type 2) (6) Anemia (7) HTN (hypertension) Assessment Renal failure most likely acute on chronic Electrolyte imbalances, hypokalemia Sepsis Hepatic encephalopathy, ascites, fatty liver Anemia History of EtOH abuse, history of tobacco abuse, history of drug abuse Diabetes mellitus type 2 Hypertension Lymphopenia, leukocytosis, hypoxia Plan November 29: Labs reviewed. Serum sodium 134 unchanged. Renal parameters are stable. Continue per GI. November 28: Labs reviewed. Renal parameters stable. Serum sodium 134. Continue per GI. November 27: Labs reviewed. Renal parameters stable. Continue per consultants. November 25: No CHEM panel drawn today. Patient clinically appears to be stable. Will continue to monitor electrolytes and renal parameters while in- house. Per orders. November 24: Labs reviewed. Renal parameters stable. Continues to have ascites requiring periodic Paracentesis. Not much to add from renal standpoint to view. Medication list reviewed. November 23: No CHEM panel drawn today. Clinically stable. Meds reviewed. Continue per current regimen. Check lab tomorrow. November 22: Labs reviewed. Electrolytes reasonably well-maintained. Continue per current treatment plan. November 21: Labs reviewed. Abnormal electrolytes addressed. Neutra-Phos discontinued. Continue per current management. November 20: Labs reviewed. Renal parameters stable. Massive ascites and GI discomfort persists. Medication list reviewed. November 19: Labs reviewed. Serum sodium 133. Normal saline 500 cc bolus given. Continue per consultants. November 18: Labs reviewed. Abnormal electrolytes addressed. Continue per consultants November 17: Labs reviewed. Renal parameters stable. Medication list reviewed. On Lasix and Aldactone. We will continue to monitor blood chemistries and electrolytes. November 16: Labs reviewed. Electrolytes within normal limit now. Continue her current management. November 15: Labs reviewed. Low magnesium addressed. Continue per current management. November 14: Labs reviewed. Renal parameters are stable continue per current management. Vitamin D supplement given. November 13: Labs reviewed. Normal renal parameters. Abnormal electrolytes noted and addressed. Vitamin D level results still pending November 12: Labs reviewed. Serum creatinine now within normal limits. Much improved from renal standpoint of view. November 11: Labs reviewed. Serum creatinine 1.6. Stable from renal standpoint reviewed. November 10: Labs reviewed. Serum creatinine lowered to 1.9. Continue to monitor renal parameters. Magnesium supplement ordered. November 09: No CHEM panel drawn today. Will DC Hernandez due to pain in the urethra. We will continue to monitor renal parameters. Continue per consultants. November 08: Labs reviewed. Serum creatinine 2.3 unchanged. Electrolytes within normal limit. Continue per consultants. November 07: Labs reviewed. Serum creatinine down to 2.3. Continue to monitor electrolytes. Low magnesium addressed. November 06: Labs reviewed. Serum creatinine 2.5 unchanged. Continue per consultants. November 05: Labs reviewed. Serum creatinine plateauing. Status quo. Electrolyte acceptable. Now on oxygen by cannula. Continue per consultants. November 04 labs reviewed. Patient full code. On Venturi mask. Low potassium addressed. Serum creatinine rising. Continue to monitor renal parameters. Allopurinol initiated November 03: Labs reviewed. Medication list reviewed. Abnormal electrolyte addressed. Continue monitor renal parameters. Continue per consultants. Previously: Trial of 3% saline and albumin bolus Potassium supplement Monitor renal parameters, ammonia, electrolytes ordered Subjective ROS Limited/Unobtainable: No Constitutional: Reports: malaise Objective Objective Last 24 Hour Vital Signs Date Time Temp Pulse Resp B/P (MAP) Pulse Ox O2 Delivery O2 Flow Rate FiO2 11/29/20 09:00 Nasal Cannula 1.0 11/29/20 08:47 97.5 11/29/20 08:00 97.5 99 16 113/68 (83) 99 11/29/20 04:00 98.1 92 18 109/73 (85) 98 11/29/20 00:00 98.3 93 18 106/69 (81) 98 11/28/20 21:00 Nasal Cannula 1.0 11/28/20 21:00 97 Nasal Cannula 1.0 24 11/28/20 20:00 98.1 110 22 108/78 (88) 97 11/28/20 16:00 97.8 95 18 99/64 (76) 95 11/28/20 14:30 97.8 11/28/20 12:00 97.8 97 18 110/69 (83) 95 Intake and Output 11/28/20 11/29/20 19:00 07:00 Intake Total 720 ml 400 ml Output Total 900 ml 900 ml Balance -180 ml -500 ml Intake Oral 720 ml 400 ml Output Urine Total 900 ml 900 ml # Bowel Movements 1 2 Current Medications Medications (Trade) Dose Ordered Sig/Kylah Route PRN Reason Start Time Stop Time Status Last Admin Dose Admin Acetaminophen (Tylenol) 500 mg Q6H PRN ORAL Mild Pain 11/02/20 08:30 12/02/20 08:29 11/23/20 17:17 Acetaminophen (Tylenol) 500 mg Q6H PRN ORAL fever > 100.2 11/02/20 08:45 12/02/20 08:44 Acetaminophen/ Hydrocodone Bitart ([place] 5/325) 1 tab Q6H PRN ORAL Severe Pain (Pain Scale 7-10) 11/24/20 19:00 12/01/20 18:59 11/29/20 08:17 Allopurinol (Zyloprim) 200 mg DAILY ORAL 11/04/20 15:00 12/04/20 14:59 11/29/20 08:19 Clobetasol Propionate (Temovate) 1 applic TWICE A DAY TOPIC 11/21/20 13:30 02/19/21 13:29 11/29/20 08:22 Dextrose (Dextrose 50%) 25 ml Q30M PRN IV Hypoglycemia 11/01/20 18:30 01/30/21 18:29 Dextrose (Dextrose 50%) 50 ml Q30M PRN IV Hypoglycemia 11/01/20 18:30 01/30/21 18:29 Folic Acid (Folate) 3 mg DAILY ORAL 11/03/20 13:15 12/03/20 13:14 11/29/20 08:19 Furosemide (Lasix) 40 mg DAILY IV 11/27/20 06:30 12/27/20 06:29 11/29/20 08:17 Insulin Aspart (NovoLOG) BEFORE MEALS AND HS SUBQ 11/01/20 21:00 01/30/21 20:59 11/28/20 11:37 Lactulose (Cephulac) 20 gm BID ORAL 11/20/20 09:00 12/20/20 08:59 11/29/20 08:16 Magnesium Oxide (Mag-Ox 400mg) 400 mg THREE TIMES A DAY ORAL 11/13/20 13:00 12/13/20 12:59 11/29/20 08:19 Midodrine (Pro-Amatine) 10 mg Q8HR ORAL 11/02/20 14:00 01/31/21 13:59 11/28/20 05:48 Pantoprazole (Protonix) 40 mg DAILY ORAL 11/14/20 09:00 12/14/20 08:59 11/29/20 08:17 Spironolactone (Aldactone) 100 mg DAILY ORAL 11/16/20 09:00 12/16/20 08:59 11/29/20 08:19 Vitamin D (Vitamin D) 5,000 unit DAILY ORAL 11/16/20 09:00 12/16/20 08:59 11/29/20 08:18 Laboratory Tests 11/28/20 16:03: POC Whole Blood Glucose 135H 11/28/20 20:07: POC Whole Blood Glucose 121H 11/29/20 05:42: POC Whole Blood Glucose 97 11/29/20 09:20: White Blood Count 8.7, Red Blood Count 2.74L, Hemoglobin 9.3L, Hematocrit 29.1L, Mean Corpuscular Volume 106H, Mean Corpuscular Hemoglobin 33.8H, Mean Corpuscular Hemoglobin Concent 31.9L, Red Cell Distribution Width 17.4H, Platelet Count 246, Mean Platelet Volume 5.4L, Neutrophils (%) (Auto) 75.8H, Lymphocytes (%) (Auto) 9.8L, Monocytes (%) (Auto) 11.2H, Eosinophils (%) (Auto) 1.2, Basophils (%) (Auto) 1.9, Sodium Level 134L, Potassium Level 4.1, Chloride Level 96L, Carbon Dioxide Level 34H, Anion Gap 4L, Blood Urea Nitrogen 16, Creatinine 1.0, Estimat Glomerular Filtration Rate > 60, Glucose Level 137H, Calcium Level 9.0 Height (Feet): 6 Height (Inches): 1.00 Weight (Pounds): 200 General Appearance: no apparent distress Cardiovascular: tachycardia Respiratory/Chest: decreased breath sounds Abdomen: distended Kalin Pozo MD Nov 29, 2020 12:02
--- NOTE | 2020-11-29 13:01 | General Progress Note ---
Subjective ROS Limited/Unobtainable: No Allergies: Coded Allergies: No Known Allergies (Unverified , 10/02/16) Objective Last 24 Hour Vital Signs Date Time Temp Pulse Resp B/P (MAP) Pulse Ox O2 Delivery O2 Flow Rate FiO2 11/29/20 09:00 Nasal Cannula 1.0 11/29/20 08:47 97.5 11/29/20 08:00 97.5 99 16 113/68 (83) 99 11/29/20 04:00 98.1 92 18 109/73 (85) 98 11/29/20 00:00 98.3 93 18 106/69 (81) 98 11/28/20 21:00 Nasal Cannula 1.0 11/28/20 21:00 97 Nasal Cannula 1.0 24 11/28/20 20:00 98.1 110 22 108/78 (88) 97 11/28/20 16:00 97.8 95 18 99/64 (76) 95 11/28/20 14:30 97.8 Intake and Output 11/28/20 11/29/20 19:00 07:00 Intake Total 720 ml 400 ml Output Total 900 ml 900 ml Balance -180 ml -500 ml Intake Oral 720 ml 400 ml Output Urine Total 900 ml 900 ml # Bowel Movements 1 2 Laboratory Tests 11/28/20 16:03: POC Whole Blood Glucose 135H 11/28/20 20:07: POC Whole Blood Glucose 121H 11/29/20 05:42: POC Whole Blood Glucose 97 11/29/20 09:20: White Blood Count 8.7, Red Blood Count 2.74L, Hemoglobin 9.3L, Hematocrit 29.1L, Mean Corpuscular Volume 106H, Mean Corpuscular Hemoglobin 33.8H, Mean Corpuscular Hemoglobin Concent 31.9L, Red Cell Distribution Width 17.4H, Platelet Count 246, Mean Platelet Volume 5.4L, Neutrophils (%) (Auto) 75.8H, Lymphocytes (%) (Auto) 9.8L, Monocytes (%) (Auto) 11.2H, Eosinophils (%) (Auto) 1.2, Basophils (%) (Auto) 1.9, Sodium Level 134L, Potassium Level 4.1, Chloride Level 96L, Carbon Dioxide Level 34H, Anion Gap 4L, Blood Urea Nitrogen 16, Creatinine 1.0, Estimat Glomerular Filtration Rate > 60, Glucose Level 137H, Calcium Level 9.0 Height (Feet): 6 Height (Inches): 1.00 Weight (Pounds): 200 General Appearance: no apparent distress EENT: normal ENT inspection Neck: supple Cardiovascular: normal rate Respiratory/Chest: decreased breath sounds Abdomen: normal bowel sounds, non tender, soft Extremities: non-tender Assessment/Plan Problem List: (1) Cirrhosis ICD Codes: K74.60 - Unspecified cirrhosis of liver SNOMED: 75999130 (2) Hepatic encephalopathy ICD Codes: K72.90 - Hepatic failure, unspecified without coma; R65.20 - Severe sepsis without septic shock SNOMED: 09606085 (3) Hypokalemia ICD Codes: E87.6 - Hypokalemia; R65.20 - Severe sepsis without septic shock SNOMED: 16678955 (4) Ascites ICD Codes: R18.8 - Other ascites SNOMED: 354349627 (5) Severe sepsis ICD Codes: A41.9 - Sepsis, unspecified organism; R65.20 - Severe sepsis without septic shock SNOMED: 49995592 (6) AMS (altered mental status) ICD Codes: R41.82 - Altered mental status, unspecified SNOMED: 537783843 Assessment/Plan: Assessment/Plan Problem List: (1) Cirrhosis ICD Codes: K74.60 - Unspecified cirrhosis of liver SNOMED: (2) Hepatic encephalopathy ICD Codes: K72.90 - Hepatic failure, unspecified without coma; R65.20 - Severe sepsis without septic shock SNOMED: 27803824 (3) Hypokalemia ICD Codes: E87.6 - Hypokalemia; R65.20 - Severe sepsis without septic shock SNOMED: 00454610 (4) Ascites ICD Codes: R18.8 - Other ascites SNOMED: 248096745 (5) Severe sepsis ICD Codes: A41.9 - Sepsis, unspecified organism; R65.20 - Severe sepsis without septic shock SNOMED: 50040865 (6) AMS (altered mental status) ICD Codes: R41.82 - Altered mental status, unspecified SNOMED: 949389549 Assessment/Plan: lactulose PPI f/u ammonia level fu hepatitis panel>>> neg s/p repeat paracentesis x4 lasix aldactone repeat labs albumin Mejia Encarnacion MD Nov 29, 2020 13:01
[2020-11-29 16:00] VITALS: BP 111/70
--- NOTE | 2020-11-29 18:21 | General Progress Note ---
Subjective Date patient seen: Nov 29, 2020 Time patient seen: 16:00 ROS Limited/Unobtainable: No Allergies: Coded Allergies: No Known Allergies (Unverified , 10/02/16) All Systems: reviewed and negative except above Subjective Reports not being able to get up from the bed on his own. He is doing PT in bed and reports having had a studio prior to admission. Reports that his family is working in finding [facility] for him. Objective Last 24 Hour Vital Signs Date Time Temp Pulse Resp B/P (MAP) Pulse Ox O2 Delivery O2 Flow Rate FiO2 11/29/20 16:00 97.8 92 20 111/70 (84) 95 11/29/20 12:00 98.0 90 20 110/72 (85) 98 11/29/20 09:00 Nasal Cannula 1.0 11/29/20 08:47 97.5 11/29/20 08:00 97.5 99 16 113/68 (83) 99 11/29/20 04:00 98.1 92 18 109/73 (85) 98 11/29/20 00:00 98.3 93 18 106/69 (81) 98 11/28/20 21:00 Nasal Cannula 1.0 11/28/20 21:00 97 Nasal Cannula 1.0 24 11/28/20 20:00 98.1 110 22 108/78 (88) 97 Intake and Output 11/28/20 11/29/20 19:00 07:00 Intake Total 720 ml 400 ml Output Total 900 ml 900 ml Balance -180 ml -500 ml Intake Oral 720 ml 400 ml Output Urine Total 900 ml 900 ml # Bowel Movements 1 2 Laboratory Tests 11/28/20 20:07: POC Whole Blood Glucose 121H 11/29/20 05:42: POC Whole Blood Glucose 97 11/29/20 09:20: White Blood Count 8.7, Red Blood Count 2.74L, Hemoglobin 9.3L, Hematocrit 29.1L, Mean Corpuscular Volume 106H, Mean Corpuscular Hemoglobin 33.8H, Mean Corpuscular Hemoglobin Concent 31.9L, Red Cell Distribution Width 17.4H, Platelet Count 246, Mean Platelet Volume 5.4L, Neutrophils (%) (Auto) 75.8H, Lymphocytes (%) (Auto) 9.8L, Monocytes (%) (Auto) 11.2H, Eosinophils (%) (Auto) 1.2, Basophils (%) (Auto) 1.9, Sodium Level 134L, Potassium Level 4.1, Chloride Level 96L, Carbon Dioxide Level 34H, Anion Gap 4L, Blood Urea Nitrogen 16, Creat inine 1.0, Estimat Glomerular Filtration Rate > 60, Glucose Level 137H, Calcium Level 9.0 Height (Feet): 6 Height (Inches): 1.00 Weight (Pounds): 200 General Appearance: WD/WN EENT: PERRL/EOMI Neck: non-tender Cardiovascular: normal rate Respiratory/Chest: lungs clear Abdomen: distended, hepatomegaly, other - ascitic wave 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 Patient will benefit from SNF care based on current state and progress. Carole Macias MD Nov 29, 2020 18:21
--- NOTE | 2020-11-29 19:25 | NUR ---
NURSE NOTES: Received report from ROXI Matos. Pt is A&Ox4 in bed. Call light within reach, side rails up x3, bed locked and in lowest position. Pt just had a BM, no complaints of distress. Will continue to monitor.
[2020-11-29 20:00] VITALS: BP 111/70
--- NOTE | 2020-11-29 20:03 | NUR ---
NURSE HAND-OFF: Important Events on Shift: accucheck, blood sugars within normal limits. Magnesium replacement. Patient Status: In no apparent distress. Diet: CCHO medium Pending Orders: am labs Pending Results/Labs:am labs. Pending MD notification:N/A Latest Vital Signs: Temperature 97.8 , Pulse 92 , B/P 111 /70 , Respiratory Rate 20 , O2 SAT 95 , Bi-pap, O2 Flow Rate 1.0 . Vital Sign Comment: N/A Latest Childs Fall Score: 70 Fall Risk: High Risk Safety Measures: Call light Within Reach, Bed Alarm Zone 2, Side Rails Side Rails x3, Bed position Low and Locked. Fall Precautions: Yellow Socks Yellow Gown Door Sign Patient Fall Education Report given to Nazario Méndez RN.
[2020-11-30] VITALS: BP 104/72
[2020-11-30 04:00] VITALS: BP 107/69
[2020-11-30] MEDS: Midodrine 10mg tab ORAL SCH ×3 (05:33→21:26)
[2020-11-30] MEDS: NovoLOG Insulin Flexpen SUBQ SCH ×4 (06:01→20:18)
[2020-11-30] MEDS: HYDROcodone/Acetamin 5/325 tab ORAL PRN ×3 (06:06→18:27)
[2020-11-30 06:41] LABS: BASOPHILS % (AUTO) 1.3 % (0.0-2.0); EOSINOPHILS % (AUTO) 1.3 % (0.0-3.0); HEMATOCRIT 29.2 % (42.0-52.0); HEMOGLOBIN 9.4 G/DL (14.2-18.0); LYMPHOCYTES % (AUTO) 9.9 % (20.0-45.0); MEAN CORPUSCULAR VOLUME 105 FL (80-99); MONOCYTES % (AUTO) 10.5 % (1.0-10.0); NEUTROPHILS % (AUTO) 77.1 % (45.0-75.0); PLATELET COUNT 255 K/UL (150-450); RED BLOOD COUNT 2.78 M/UL (4.70-6.10); RED CELL DISTRIBUTION WIDTH 17.5 % (11.6-14.8); WHITE BLOOD COUNT 10.2 K/UL (4.8-10.8)
[2020-11-30 06:57] LABS: ALANINE AMINOTRANSFERASE 13 U/L (12-78); ALBUMIN 1.7 G/DL (3.4-5.0); ALBUMIN/GLOBULIN RATIO 0.3 (1.0-2.7); ALKALINE PHOSPHATASE 127 U/L (46-116); ANION GAP 3 mmol/L (5-15); ASPARTATE AMINO TRANSFERASE 30 U/L (15-37); BILIRUBIN,TOTAL 0.5 MG/DL (0.2-1.0); BLOOD UREA NITROGEN 18 mg/dL (7-18); CARBON DIOXIDE 35 MMOL/L (21-32); CHLORIDE 96 MMOL/L (98-107); CREATININE 1.1 MG/DL (0.55-1.30); SODIUM 134 MMOL/L (136-145)
--- NOTE | 2020-11-30 07:15 | NUR ---
NURSE HAND-OFF: Important Events on Shift: BMx1 Patient Status: calm watching television Diet: ccho medium Pending Orders: Pending Results/Labs: Pending MD notification: Latest Vital Signs: Temperature 98.4 , Pulse 94 , B/P 107 /69 , Respiratory Rate 20 , O2 SAT 95 , Bi-pap, O2 Flow Rate 1.0 . Vital Sign Comment: VSS Latest Childs Fall Score: 70 Fall Risk: High Risk Safety Measures: Call light Within Reach, Bed Alarm Zone 2, Side Rails Side Rails x3, Bed position Low and Locked. Fall Precautions: Yellow Socks Yellow Gown Door Sign Patient Fall Education Report given to ROXI Zelaya.
--- NOTE | 2020-11-30 07:47 | NUR ---
NURSE NOTES: Patient seen in bed in semi fowlers position with no acute signs of distress. The patient is on 1L nasal cannula with oxygen saturation within normal limits.The patient has a R FA 20G IV that is clean, patent intact and saline locked. The patients bed is in lowest position locked, side rails x2 and call light within reach.
--- NOTE | 2020-11-30 07:57 | Infectious Diseases Prog Note ---
Assessment/Plan 60yo M with: Sepsis Afebrile Hypoxia on BiPAP >> NRB mask >> venti mask Leukocytosis to 14, improving Lymphopenia 11/01 BCx NTD COVID PCR neg CXR: Elevated right hemidiaphragm. Possible right basilar airspace disease and right effusion. CTH: No acute process EtOH abuse Cirrhosis, Fatty liver Massive ascites Elevated AST to 48 Acute hep panel neg 11/01 CT A/P: CIRRHOSIS WITH LARGE AMOUNT OF ASCITES. SPLENIC GRANULOMAS. SLUDGE IN THE GALLBLADDER. SMALL RIGHT PLEURAL EFFUSION WITH COMPRESSIVE ATELECTASIS RIGHT LOWER LOBE. ELEVATED RIGHT HEMIDIAPHRAGM. 11/02 Paracentesis, 10.2L removed 838 RBC, 142 WBC, 2%PMN, 94%[place]'s Cx - NTD 11/26/20 - S/P paracentesis - not fluid no sent to the lab DAVIDE vs CKD, Cr 2.4, improving HIV screen neg EtOH abuse, stopped drinking in Sep 2020 Fatty liver DM2 HTN Plan: Monitor off abx as he is aseptic 11/11 SP Zosyn #10 11/03 SP vanco #2 Monitor CBC/CMP Monitor temp curve, hemodynamics Monitor resp status D/w RN Thank you for this consult. [facility] will continue to follow. Subjective Allergies: Coded Allergies: No Known Allergies (Unverified , 10/02/16) Afebrile No Leukocytosis Comfortable no abd pain Objective Last 24 Hour Vital Signs Date Time Temp Pulse Resp B/P (MAP) Pulse Ox O2 Delivery O2 Flow Rate FiO2 11/30/20 04:00 98.4 94 20 107/69 (82) 95 11/30/20 00:00 97.2 93 20 104/72 (83) 95 11/29/20 21:00 Nasal Cannula 1.0 11/29/20 20:10 95 Nasal Cannula 1.0 24 11/29/20 20:00 98.1 95 20 111/70 (84) 95 11/29/20 18:37 97.8 11/29/20 16:00 97.8 92 20 111/70 (84) 95 11/29/20 12:00 98.0 90 20 110/72 (85) 98 11/29/20 09:00 Nasal Cannula 1.0 11/29/20 08:47 97.5 11/29/20 08:00 97.5 99 16 113/68 (83) 99 Height (Feet): 6 Height (Inches): 1.00 Weight (Pounds): 200 Gen: NAD on 1L NC HEENT: NCAT, EOMI Pulm: BL chest rise Abd: Distended, soft, +fluid wave Ext: No c/c/e Neuro: Awake, interactive Laboratory Tests Test 11/29/20 09:20 11/29/20 10:46 11/29/20 16:42 11/29/20 21:02 White Blood Count 8.7 K/UL (4.8-10.8) Red Blood Count 2.74 M/UL (4.70-6.10) L Hemoglobin 9.3 G/DL (14.2-18.0) L Hematocrit 29.1 % (42.0-52.0) L Mean Corpuscular Volume 106 FL (80-99) H Mean Corpuscular Hemoglobin 33.8 PG (27.0-31.0) H Mean Corpuscular Hemoglobin Concent 31.9 G/DL (32.0-36.0) L Red Cell Distribution Width 17.4 % (11.6-14.8) H Platelet Count 246 K/UL (150-450) Mean Platelet Volume 5.4 FL (6.5-10.1) L Neutrophils (%) (Auto) 75.8 % (45.0-75.0) H Lymphocytes (%) (Auto) 9.8 % (20.0-45.0) L Monocytes (%) (Auto) 11.2 % (1.0-10.0) H Eosinophils (%) (Auto) 1.2 % (0.0-3.0) Basophils (%) (Auto) 1.9 % (0.0-2.0) Sodium Level 134 MMOL/L (136-145) L Potassium Level 4.1 MMOL/L (3.5-5.1) Chloride Level 96 MMOL/L (98-107) L Carbon Dioxide Level 34 MMOL/L (21-32) H Anion Gap 4 mmol/L (5-15) L Blood Urea Nitrogen 16 mg/dL (7-18) Creatinine 1.0 MG/DL (0.55-1.30) Estimat Glomerular Filtration Rate > 60 mL/min (>60) Glucose Level 137 MG/DL (74-106) H Calcium Level 9.0 MG/DL (8.5-10.1) POC Whole Blood Glucose Pending 102 MG/DL (74-106) 112 MG/DL (74-106) H Test 11/30/20 05:20 11/30/20 06:00 White Blood Count 10.2 K/UL (4.8-10.8) Red Blood Count 2.78 M/UL (4.70-6.10) L Hemoglobin 9.4 G/DL (14.2-18.0) L Hematocrit 29.2 % (42.0-52.0) L Mean Corpuscular Volume 105 FL (80-99) H Mean Corpuscular Hemoglobin 33.8 PG (27.0-31.0) H Mean Corpuscular Hemoglobin Concent 32.2 G/DL (32.0-36.0) Red Cell Distribution Width 17.5 % (11.6-14.8) H Platelet Count 255 K/UL (150-450) Mean Platelet Volume 5.2 FL (6.5-10.1) L Neutrophils (%) (Auto) 77.1 % (45.0-75.0) H Lymphocytes (%) (Auto) 9.9 % (20.0-45.0) L Monocytes (%) (Auto) 10.5 % (1.0-10.0) H Eosinophils (%) (Auto) 1.3 % (0.0-3.0) Basophils (%) (Auto) 1.3 % (0.0-2.0) Sodium Level 134 MMOL/L (136-145) L Potassium Level 4.0 MMOL/L (3.5-5.1) Chloride Level 96 MMOL/L (98-107) L Carbon Dioxide Level 35 MMOL/L (21-32) H Anion Gap 3 mmol/L (5-15) L Blood Urea Nitrogen 18 mg/dL (7-18) Creatinine 1.1 MG/DL (0.55-1.30) Estimat Glomerular Filtration Rate > 60 mL/min (>60) Glucose Level 91 MG/DL (74-106) Calcium Level 9.0 MG/DL (8.5-10.1) Total Bilirubin 0.5 MG/DL (0.2-1.0) Aspartate Amino Transf (AST/SGOT) 30 U/L (15-37) Alanine Aminotransferase (ALT/SGPT) 13 U/L (12-78) Alkaline Phosphatase 127 U/L (46-116) H Total Protein 6.6 G/DL (6.4-8.2) Albumin 1.7 G/DL (3.4-5.0) L Globulin 4.9 g/dL Albumin/Globulin Ratio 0.3 (1.0-2.7) L POC Whole Blood Glucose 89 MG/DL (74-106) Current Medications Medications (Trade) Dose Ordered Sig/Kylah Route PRN Reason Start Time Stop Time Status Last Admin Dose Admin Acetaminophen (Tylenol) 500 mg Q6H PRN ORAL Mild Pain 11/02/20 08:30 12/02/20 08:29 11/23/20 17:17 Acetaminophen (Tylenol) 500 mg Q6H PRN ORAL fever > 100.2 11/02/20 08:45 12/02/20 08:44 Acetaminophen/ Hydrocodone Bitart ([place] 5/325) 1 tab Q6H PRN ORAL Severe Pain (Pain Scale 7-10) 11/24/20 19:00 12/01/20 18:59 11/30/20 06:06 Allopurinol (Zyloprim) 200 mg DAILY ORAL 11/04/20 15:00 12/04/20 14:59 11/29/20 08:19 Clobetasol Propionate (Temovate) 1 applic TWICE A DAY TOPIC 11/21/20 13:30 02/19/21 13:29 11/29/20 18:08 Dextrose (Dextrose 50%) 25 ml Q30M PRN IV Hypoglycemia 11/01/20 18:30 01/30/21 18:29 Dextrose (Dextrose 50%) 50 ml Q30M PRN IV Hypoglycemia 11/01/20 18:30 01/30/21 18:29 Folic Acid (Folate) 3 mg DAILY ORAL 11/03/20 13:15 12/03/20 13:14 11/29/20 08:19 Furosemide (Lasix) 40 mg DAILY IV 11/27/20 06:30 12/27/20 06:29 11/29/20 08:17 Insulin Aspart (NovoLOG) BEFORE MEALS AND HS SUBQ 11/01/20 21:00 01/30/21 20:59 11/28/20 11:37 Lactulose (Cephulac) 20 gm BID ORAL 11/20/20 09:00 12/20/20 08:59 11/29/20 18:00 Magnesium Oxide (Mag-Ox 400mg) 400 mg THREE TIMES A DAY ORAL 11/13/20 13:00 12/13/20 12:59 11/29/20 18:00 Midodrine (Pro-Amatine) 10 mg Q8HR ORAL 11/02/20 14:00 01/31/21 13:59 11/29/20 14:16 Pantoprazole (Protonix) 40 mg DAILY ORAL 11/14/20 09:00 12/14/20 08:59 11/29/20 08:17 Spironolactone (Aldactone) 100 mg DAILY ORAL 11/16/20 09:00 12/16/20 08:59 11/29/20 08:19 Vitamin D (Vitamin D) 5,000 unit DAILY ORAL 11/16/20 09:00 12/16/20 08:59 11/29/20 08:18 Nazario Banks MD Nov 30, 2020 07:57
[2020-11-30 08:00] VITALS: BP 102/67
[2020-11-30] MEDS: Vitamin D 1000 units Tab ORAL SCH (09:19)
[2020-11-30] MEDS: Lactulose 20gm/30ml UDC ORAL SCH ×2 (09:19→18:27)
[2020-11-30] MEDS: Spironolactone 50mg tab ORAL SCH (09:20)
[2020-11-30] MEDS: Allopurinol 100mg Tab ORAL SCH (09:20)
[2020-11-30] MEDS: CLOBETASOL 0.05% TOPIC SCH ×2 (09:20→18:27)
[2020-11-30] MEDS: Magnesium Oxide 400mg tab ORAL SCH ×3 (09:20→18:27)
--- NOTE | 2020-11-30 10:36 | Nephrology Progress Note ---
Assessment/Plan Problem List: (1) Renal failure (ARF), acute on chronic (2) Electrolyte imbalance (3) Hypokalemia (4) Cirrhosis (5) DMII (diabetes mellitus, type 2) (6) Anemia (7) HTN (hypertension) Assessment Renal failure most likely acute on chronic Electrolyte imbalances, hypokalemia Sepsis Hepatic encephalopathy, ascites, fatty liver Anemia History of EtOH abuse, history of tobacco abuse, history of drug abuse Diabetes mellitus type 2 Hypertension Lymphopenia, leukocytosis, hypoxia Plan November 30: Labs reviewed. Renal parameters unchanged. Continue per GI. Not much to add from renal standpoint of view. November 29: Labs reviewed. Serum sodium 134 unchanged. Renal parameters are stable. Continue per GI. November 28: Labs reviewed. Renal parameters stable. Serum sodium 134. Continue per GI. November 27: Labs reviewed. Renal parameters stable. Continue per consultants. November 25: No CHEM panel drawn today. Patient clinically appears to be stable. Will continue to monitor electrolytes and renal parameters while in- house. Per orders. November 24: Labs reviewed. Renal parameters stable. Continues to have ascites requiring periodic Paracentesis. Not much to add from renal standpoint to view. Medication list reviewed. November 23: No CHEM panel drawn today. Clinically stable. Meds reviewed. Continue per current regimen. Check lab tomorrow. November 22: Labs reviewed. Electrolytes reasonably well-maintained. Continue per current treatment plan. November 21: Labs reviewed. Abnormal electrolytes addressed. Neutra-Phos discontinued. Continue per current management. November 20: Labs reviewed. Renal parameters stable. Massive ascites and GI discomfort persists. Medication list reviewed. November 19: Labs reviewed. Serum sodium 133. Normal saline 500 cc bolus given. Continue per consultants. November 18: Labs reviewed. Abnormal electrolytes addressed. Continue per consultants November 17: Labs reviewed. Renal parameters stable. Medication list reviewed. On Lasix and Aldactone. We will continue to monitor blood chemistries and e lectrolytes. November 16: Labs reviewed. Electrolytes within normal limit now. Continue her current management. November 15: Labs reviewed. Low magnesium addressed. Continue per current management. November 14: Labs reviewed. Renal parameters are stable continue per current management. Vitamin D supplement given. November 13: Labs reviewed. Normal renal parameters. Abnormal electrolytes noted and addressed. Vitamin D level results still pending November 12: Labs reviewed. Serum creatinine now within normal limits. Much improved from renal standpoint of view. November 11: Labs reviewed. Serum creatinine 1.6. Stable from renal standpoint reviewed. November 10: Labs reviewed. Serum creatinine lowered to 1.9. Continue to monitor renal parameters. Magnesium supplement ordered. November 09: No CHEM panel drawn today. Will DC Hernandez due to pain in the urethra. We will continue to monitor renal parameters. Continue per consultants. November 08: Labs reviewed. Serum creatinine 2.3 unchanged. Electrolytes within normal limit. Continue per consultants. November 07: Labs reviewed. Serum creatinine down to 2.3. Continue to monitor electrolytes. Low magnesium addressed. November 06: Labs reviewed. Serum creatinine 2.5 unchanged. Continue per consultants. November 05: Labs reviewed. Serum creatinine plateauing. Status quo. Electrolyte acceptable. Now on oxygen by cannula. Continue per consultants. November 04 labs reviewed. Patient full code. On Venturi mask. Low potassium addressed. Serum creatinine rising. Continue to monitor renal parameters. Allopurinol initiated November 03: Labs reviewed. Medication list reviewed. Abnormal electrolyte addressed. Continue monitor renal parameters. Continue per consultants. Previously: Trial of 3% saline and albumin bolus Potassium supplement Monitor renal parameters, ammonia, electrolytes ordered Subjective ROS Limited/Unobtainable: No Constitutional: Reports: malaise Objective Objective Last 24 Hour Vital Signs Date Time Temp Pulse Resp B/P (MAP) Pulse Ox O2 Delivery O2 Flow Rate FiO2 11/30/20 09:00 Nasal Cannula 1.0 11/30/20 08:00 97.6 95 20 102/67 (79) 96 11/30/20 04:00 98.4 94 20 107/69 (82) 95 11/30/20 00:00 97.2 93 20 104/72 (83) 95 11/29/20 21:00 Nasal Cannula 1.0 11/29/20 20:10 95 Nasal Cannula 1.0 24 11/29/20 20:00 98.1 95 20 111/70 (84) 95 11/29/20 18:37 97.8 11/29/20 16:00 97.8 92 20 111/70 (84) 95 11/29/20 12:00 98.0 90 20 110/72 (85) 98 Intake and Output 11/29/20 11/30/20 19:00 07:00 Intake Total 900 ml Output Total 1800 ml 1200 ml Balance -900 ml -1200 ml Intake Oral 900 ml Output Urine Total 1800 ml 1200 ml # Voids 3 # Bowel Movements 3 1 Current Medications Medications (Trade) Dose Ordered Sig/Kylah Route PRN Reason Start Time Stop Time Status Last Admin Dose Admin Acetaminophen (Tylenol) 500 mg Q6H PRN ORAL Mild Pain 11/02/20 08:30 12/02/20 08:29 11/23/20 17:17 Acetaminophen (Tylenol) 500 mg Q6H PRN ORAL fever > 100.2 11/02/20 08:45 12/02/20 08:44 Acetaminophen/ Hydrocodone Bitart ([place] 5/325) 1 tab Q6H PRN ORAL Severe Pain (Pain Scale 7-10) 11/24/20 19:00 12/01/20 18:59 11/30/20 12:16 Allopurinol (Zyloprim) 200 mg DAILY ORAL 11/04/20 15:00 12/04/20 14:59 11/30/20 09:20 Clobetasol Propionate (Temovate) 1 applic TWICE A DAY TOPIC 11/21/20 13:30 02/19/21 13:29 11/30/20 09:20 Dextrose (Dextrose 50%) 25 ml Q30M PRN IV Hypoglycemia 11/01/20 18:30 01/30/21 18:29 Dextrose (Dextrose 50%) 50 ml Q30M PRN IV Hypoglycemia 11/01/20 18:30 01/30/21 18:29 Folic Acid (Folate) 3 mg DAILY ORAL 11/03/20 13:15 12/03/20 13:14 11/30/20 09:19 Furosemide (Lasix) 40 mg DAILY IV 11/27/20 06:30 12/27/20 06:29 11/30/20 09:21 Insulin Aspart (NovoLOG) BEFORE MEALS AND HS SUBQ 11/01/20 21:00 01/30/21 20:59 11/28/20 11:37 Lactulose (Cephulac) 20 gm BID ORAL 11/20/20 09:00 12/20/20 08:59 11/30/20 09:19 Magnesium Oxide (Mag-Ox 400mg) 400 mg THREE TIMES A DAY ORAL 11/13/20 13:00 12/13/20 12:59 11/30/20 12:17 Midodrine (Pro-Amatine) 10 mg Q8HR ORAL 11/02/20 14:00 01/31/21 13:59 11/29/20 14:16 Pantoprazole (Protonix) 40 mg DAILY ORAL 11/14/20 09:00 12/14/20 08:59 11/30/20 09:20 Spironolactone (Aldactone) 100 mg DAILY ORAL 11/16/20 09:00 12/16/20 08:59 11/30/20 09:20 Vitamin D (Vitamin D) 5,000 unit DAILY ORAL 11/16/20 09:00 12/16/20 08:59 11/30/20 09:19 Laboratory Tests 11/29/20 10:46: POC Whole Blood Glucose [Pending] 11/29/20 16:42: POC Whole Blood Glucose 102 11/29/20 21:02: POC Whole Blood Glucose 112H 11/30/20 05:20: White Blood Count 10.2, Red Blood Count 2.78L, Hemoglobin 9.4L, Hematocrit 29.2L , Mean Corpuscular Volume 105H, Mean Corpuscular Hemoglobin 33.8H, Mean Corpuscular Hemoglobin Concent 32.2, Red Cell Distribution Width 17.5H, Platelet Count 255, Mean Platelet Volume 5.2L, Neutrophils (%) (Auto) 77.1H, Lymphocytes (%) (Auto) 9.9L, Monocytes (%) (Auto) 10.5H, Eosinophils (%) (Auto) 1.3, Basophils (%) (Auto) 1.3, Sodium Level 134L, Potassium Level 4.0, Chloride Level 96L, Carbon Dioxide Level 35H, Anion Gap 3L, Blood Urea Nitrogen 18, Creatinine 1.1, Estimat Glomerular Filtration Rate > 60, Glucose Level 91, Calcium Level 9.0, Total Bilirubin 0.5, Aspartate Amino Transf (AST/SGOT) 30, Alanine Aminotransferase (ALT/SGPT) 13, Alkaline Phosphatase 127H, Total Protein 6.6, Albumin 1.7L, Globulin 4.9, Albumin/Globulin Ratio 0.3L 11/30/20 06:00: POC Whole Blood Glucose 89 Height (Feet): 6 Height (Inches): 1.00 Weight (Pounds): 200 General Appearance: no apparent distress Cardiovascular: tachycardia Respiratory/Chest: decreased breath sounds Abdomen: distended Kalin Pozo MD Nov 30, 2020 10:36
[2020-11-30 12:00] VITALS: BP 105/65
--- NOTE | 2020-11-30 12:28 | General Progress Note ---
Subjective ROS Limited/Unobtainable: No Allergies: Coded Allergies: No Known Allergies (Unverified , 10/02/16) Objective Last 24 Hour Vital Signs Date Time Temp Pulse Resp B/P (MAP) Pulse Ox O2 Delivery O2 Flow Rate FiO2 11/30/20 12:00 98.0 90 20 105/65 (78) 98 11/30/20 09:00 Nasal Cannula 1.0 11/30/20 08:00 97.6 95 20 102/67 (79) 96 11/30/20 04:00 98.4 94 20 107/69 (82) 95 11/30/20 00:00 97.2 93 20 104/72 (83) 95 11/29/20 21:00 Nasal Cannula 1.0 11/29/20 20:10 95 Nasal Cannula 1.0 24 11/29/20 20:00 98.1 95 20 111/70 (84) 95 11/29/20 18:37 97.8 11/29/20 16:00 97.8 92 20 111/70 (84) 95 Intake and Output 11/29/20 11/30/20 19:00 07:00 Intake Total 900 ml Output Total 1800 ml 1200 ml Balance -900 ml -1200 ml Intake Oral 900 ml Output Urine Total 1800 ml 1200 ml # Voids 3 # Bowel Movements 3 1 Laboratory Tests 11/29/20 16:42: POC Whole Blood Glucose 102 11/29/20 21:02: POC Whole Blood Glucose 112H 11/30/20 05:20: White Blood Count 10.2, Red Blood Count 2.78L, Hemoglobin 9.4L, Hematocrit 29.2L , Mean Corpuscular Volume 105H, Mean Corpuscular Hemoglobin 33.8H, Mean Corpuscular Hemoglobin Concent 32.2, Red Cell Distribution Width 17.5H, Platelet Count 255, Mean Platelet Volume 5.2L, Neutrophils (%) (Auto) 77.1H, Lymphocytes (%) (Auto) 9.9L, Monocytes (%) (Auto) 10.5H, Eosinophils (%) (Auto) 1.3, Basophils (%) (Auto) 1.3, Sodium Level 134L, Potassium Level 4.0, Chloride Level 96L, Carbon Dioxide Level 35H, Anion Gap 3L, Blood Urea Nitrogen 18, Creatinine 1.1, Estimat Glomerular Filtration Rate > 60, Glucose Level 91, Calcium Level 9.0, Total Bilirubin 0.5, Aspartate Amino Transf (AST/SGOT) 30, Alanine Aminotransferase (ALT/SGPT) 13, Alkaline Phosphatase 127H, Total Protein 6.6, Albumin 1.7L, Globulin 4.9, Albumin/Globulin Ratio 0.3L 11/30/20 06:00: POC Whole Blood Glucose 89 11/30/20 11:05: POC Whole Blood Glucose 104 Height (Feet): 6 Height (Inches): 1.00 Weight (Pounds): 200 General Appearance: no apparent distress EENT: normal ENT inspection Neck: supple Cardiovascular: normal rate Respiratory/Chest: decreased breath sounds Abdomen: normal bowel sounds, non tender, soft Extremities: non-tender Assessment/Plan Problem List: (1) Cirrhosis ICD Codes: K74.60 - Unspecified cirrhosis of liver SNOMED: 45273124 (2) Hepatic encephalopathy ICD Codes: K72.90 - Hepatic failure, unspecified without coma; R65.20 - Severe sepsis without septic shock SNOMED: 97532305 (3) Hypokalemia ICD Codes: E87.6 - Hypokalemia; R65.20 - Severe sepsis without septic shock SNOMED: 85613894 (4) Ascites ICD Codes: R18.8 - Other ascites SNOMED: 792389612 (5) Severe sepsis ICD Codes: A41.9 - Sepsis, unspecified organism; R65.20 - Severe sepsis without septic shock SNOMED: 46651596 (6) AMS (altered mental status) ICD Codes: R41.82 - Altered mental status, unspecified SNOMED: 729857745 Status: stable Assessment/Plan: Assessment/Plan Problem List: (1) Cirrhosis ICD Codes: K74.60 - Unspecified cirrhosis of liver SNOMED: 43203631 (2) Hepatic encephalopathy ICD Codes: K72.90 - Hepatic failure, unspecified without coma; R65.20 - Severe sepsis without septic shock SNOMED: 00840740 (3) Hypokalemia ICD Codes: E87.6 - Hypokalemia; R65.20 - Severe sepsis without septic shock SNOMED: 44742043 (4) Ascites ICD Codes: R18.8 - Other ascites SNOMED: 065662119 (5) Severe sepsis ICD Codes: A41.9 - Sepsis, unspecified organism; R65.20 - Severe sepsis without septic shock SNOMED: 16796393 (6) AMS (altered mental status) ICD Codes: R41.82 - Altered mental status, unspecified SNOMED: 461536174 Assessment/Plan: lactulose PPI f/u ammonia level fu hepatitis panel>>> neg s/p repeat paracentesis x4 lasix aldactone repeat labs albumin Mejia Encarnacion MD Nov 30, 2020 12:28
--- NOTE | 2020-11-30 15:07 | General Progress Note ---
Subjective Date patient seen: Nov 30, 2020 Time patient seen: 15:00 ROS Limited/Unobtainable: No Allergies: Coded Allergies: No Known Allergies (Unverified , 10/02/16) Subjective Reports not being able to get up from the bed on his own. He is doing PT in bed and reports having had a studio prior to admission. Reports that his family is working in finding [facility] for him. Objective Last 24 Hour Vital Signs Date Time Temp Pulse Resp B/P (MAP) Pulse Ox O2 Delivery O2 Flow Rate FiO2 11/30/20 12:00 98.0 90 20 105/65 (78) 98 11/30/20 09:00 Nasal Cannula 1.0 11/30/20 08:00 97.6 95 20 102/67 (79) 96 11/30/20 04:00 98.4 94 20 107/69 (82) 95 11/30/20 00:00 97.2 93 20 104/72 (83) 95 11/29/20 21:00 Nasal Cannula 1.0 11/29/20 20:10 95 Nasal Cannula 1.0 24 11/29/20 20:00 98.1 95 20 111/70 (84) 95 11/29/20 18:37 97.8 11/29/20 16:00 97.8 92 20 111/70 (84) 95 Intake and Output 11/29/20 11/30/20 19:00 07:00 Intake Total 900 ml Output Total 1800 ml 1200 ml Balance -900 ml -1200 ml Intake Oral 900 ml Output Urine Total 1800 ml 1200 ml # Voids 3 # Bowel Movements 3 1 Laboratory Tests 11/29/20 16:42: POC Whole Blood Glucose 102 11/29/20 21:02: POC Whole Blood Glucose 112H 11/30/20 05:20: White Blood Count 10.2, Red Blood Count 2.78L, Hemoglobin 9.4L, Hematocrit 29.2L , Mean Corpuscular Volume 105H, Mean Corpuscular Hemoglobin 33.8H, Mean Corpuscular Hemoglobin Concent 32.2, Red Cell Distribution Width 17.5H, Platelet Count 255, Mean Platelet Volume 5.2L, Neutrophils (%) (Auto) 77.1H, Lymphocytes (%) (Auto) 9.9L, Monocytes (%) (Auto) 10.5H, Eosinophils (%) (Auto) 1.3, Basophils (%) (Auto) 1.3, Sodium Level 134L, Potassium Level 4.0, Chloride Level 96L, Carbon Dioxide Level 35H, Anion Gap 3L, Blood Urea Nitrogen 18, Creatinine 1.1, Estimat Glomerular Filtration Rate > 60, Glucose Level 91, Calcium Level 9 .0, Total Bilirubin 0.5, Aspartate Amino Transf (AST/SGOT) 30, Alanine Aminotransferase (ALT/SGPT) 13, Alkaline Phosphatase 127H, Total Protein 6.6, Albumin 1.7L, Globulin 4.9, Albumin/Globulin Ratio 0.3L 11/30/20 06:00: POC Whole Blood Glucose 89 11/30/20 11:05: POC Whole Blood Glucose 104 Height (Feet): 6 Height (Inches): 1.00 Weight (Pounds): 200 General Appearance: WD/WN EENT: PERRL/EOMI Cardiovascular: normal rate Respiratory/Chest: lungs clear Abdomen: non tender Extremities: normal range of motion Edema: trace edema Neurologic: field research assistant II-XII grossly normal Assessment/Plan Status: stable Assessment/Plan: Assessment/Plan Assessment/Plan Sepsis Acute Hypoxia on BiPAP >> NRB mask >> venturi mask>>nasal canula alcohol abuse Liver Cirrhosis, Fatty liver Massive ascites renal failure DM2 HTN Plan: ABX=S/P vanco and Zosyn High volume paracentesis, COVID PCR=Neg GI=Dr Encarnacion Nephrol=Dr Pozo S/P paracentesis 11/02/20 and repeat 11/26/20 ID=Dr Banks Discharge planning discussed with Dottie from case management 11/29 Patient will benefit from SNF care based on current state and progress. Need to follow up with [facility] for placement. Carole Macias MD Nov 30, 2020 15:07
[2020-11-30 16:00] VITALS: BP 107/68
--- NOTE | 2020-11-30 17:17 | Surgery Progress Note ---
Surgery Progress Note Subjective Symptoms: improved Objective Last 24 Hour Vital Signs Date Time Temp Pulse Resp B/P (MAP) Pulse Ox O2 Delivery O2 Flow Rate FiO2 11/30/20 16:00 98.1 95 18 107/68 (81) 94 11/30/20 12:00 98.0 90 20 105/65 (78) 98 11/30/20 10:15 96 Nasal Cannula 1.0 24 11/30/20 09:00 Nasal Cannula 1.0 11/30/20 08:00 97.6 95 20 102/67 (79) 96 11/30/20 04:00 98.4 94 20 107/69 (82) 95 11/30/20 00:00 97.2 93 20 104/72 (83) 95 11/29/20 21:00 Nasal Cannula 1.0 11/29/20 20:10 95 Nasal Cannula 1.0 24 11/29/20 20:00 98.1 95 20 111/70 (84) 95 11/29/20 18:37 97.8 I&O Intake and Output 11/29/20 11/30/20 19:00 07:00 Intake Total 900 ml Output Total 1800 ml 1200 ml Balance -900 ml -1200 ml Intake Oral 900 ml Output Urine Total 1800 ml 1200 ml # Voids 3 # Bowel Movements 3 1 Dressing: dry Wound: clean Cardiovascular: RSR Respiratory: clear Abdomen: soft, flat, non-tender, present bowel sounds Extremities: no edema, no tenderness Laboratory Tests Test 11/29/20 21:02 11/30/20 05:20 11/30/20 06:00 11/30/20 11:05 POC Whole Blood Glucose 112 MG/DL (74-106) H 89 MG/DL (74-106) 104 MG/DL (74-106) White Blood Count 10.2 K/UL (4.8-10.8) Red Blood Count 2.78 M/UL (4.70-6.10) L Hemoglobin 9.4 G/DL (14.2-18.0) L Hematocrit 29.2 % (42.0-52.0) L Mean Corpuscular Volume 105 FL (80-99) H Mean Corpuscular Hemoglobin 33.8 PG (27.0-31.0) H Mean Corpuscular Hemoglobin Concent 32.2 G/DL (32.0-36.0) Red Cell Distribution Width 17.5 % (11.6-14.8) H Platelet Count 255 K/UL (150-450) Mean Platelet Volume 5.2 FL (6.5-10.1) L Neutrophils (%) (Auto) 77.1 % (45.0-75.0) H Lymphocytes (%) (Auto) 9.9 % (20.0-45.0) L Monocytes (%) (Auto) 10.5 % (1.0-10.0) H Eosinophils (%) (Auto) 1.3 % (0.0-3.0) Basophils (%) (Auto) 1.3 % (0.0-2.0) Sodium Level 134 MMOL/L (136-145) L Potassium Level 4.0 MMOL/L (3.5-5.1) Chloride Level 96 MMOL/L (98-107) L Carbon Dioxide Level 35 MMOL/L (21-32) H Anion Gap 3 mmol/L (5-15) L Blood Urea Nitrogen 18 mg/dL (7-18) Creatinine 1.1 MG/DL (0.55-1.30) Estimat Glomerular Filtration Rate > 60 mL/min (>60) Glucose Level 91 MG/DL (74-106) Calcium Level 9.0 MG/DL (8.5-10.1) Total Bilirubin 0.5 MG/DL (0.2-1.0) Aspartate Amino Transf (AST/SGOT) 30 U/L (15-37) Alanine Aminotransferase (ALT/SGPT) 13 U/L (12-78) Alkaline Phosphatase 127 U/L (46-116) H Total Protein 6.6 G/DL (6.4-8.2) Albumin 1.7 G/DL (3.4-5.0) L Globulin 4.9 g/dL Albumin/Globulin Ratio 0.3 (1.0-2.7) L Test 11/30/20 16:38 POC Whole Blood Glucose 133 MG/DL (74-106) H Plan Problems: (1) Deep tissue injury Assessment & Plan: Pt presented on admission with DTPI Thoracic Spine(L)1.8cm x (W)1cm. Base of Pressure Injury is purpuric with surrounding non-blanchable erythema. Pt complained of tenderness at site. Non-Blanchable erythema without induration noted to Sacrum,R and L Gluteal cheeks including Bilat Ischial tuberosities. Rocker bottom foot noted to Both R and L feet. Both heels are callused,dry and easily blanchable. Tx.Plan: Apply Cavilon Skin Barrier To Thoracic DTPI. Cover with Optifoam drsg. Change every 3 days and prn. Apply Moisture Barrier Paste to Sacrum. Cover with Optifoam drsg. Change every 3 days and prn. Apply Cavilon Skin Barrier to R and L gluteal cheeks and Bilat Ischial tuberosities with each Incontinence care. Reposition at least every 2Hours or as tolerated. Off-load heels with pillow. (2) Hepatic encephalopathy (3) Hypokalemia (4) Ascites (5) Severe sepsis (6) Cirrhosis Assessment & Plan: distended again may need repeat para gi input There is compressive atelectasis right lower lobe. Small right effusion noted. Right hemidiaphragm is elevated. There is a large amount of ascites. Slight nodularity of the hepatic contour noted suggestive of underlying cirrhotic changes. Spleen contains some scattered granulomas. Gallbladder is isodense to liver likely containing tumefactive sludge. The pancreas is unremarkable. Adrenals are normal in morphology. The kidneys are normal in size, shape and axis. Small bowel loops are nondistended. The colon is also nondistended with average amount of stool. The appendix is not visualized. There is no free air. No pathologic adenopathy demonstrated. Urinary bladder appears unremarkable. Degenerative changes of the lumbar spine noted. IMPRESSION: CIRRHOSIS WITH LARGE AMOUNT OF ASCITES. SPLENIC GRANULOMAS. SLUDGE IN THE GALLBLADDER. SMALL RIGHT PLEURAL EFFUSION WITH COMPRESSIVE ATELECTASIS RIGHT LOWER LOBE. ELEVATED RIGHT HEMIDIAPHRAGM. (7) AMS (altered mental status) (8) Electrolyte imbalance (9) Renal failure (ARF), acute on chronic (10) Anemia (11) HTN (hypertension) (12) DMII (diabetes mellitus, type 2) Theodore Alves Nov 30, 2020 17:17
--- NOTE | 2020-11-30 19:10 | NUR ---
NURSE NOTES: Received report from ROXI Zelaya. Pt is A&Ox4, call light within reach, side rails up x3, bed locked and in lowest position. Pt is able to make needs known and is receiving O2 via NC. Will continue to monitor.
--- NOTE | 2020-11-30 19:20 | NUR ---
NURSE HAND-OFF REPORT: Important Events on Shift:[Held midodrine due to sys < 105] Patient Status: [Full code] Diet: [CCHO medium] Pending Orders: [N/A] Pending Results/Labs:[N/A] Pending MD notification:[N/A] Latest Vital Signs: Temperature 98.1 , Pulse 95 , B/P 107 /68 , Respiratory Rate 18 , O2 SAT 94 , Bi-pap, O2 Flow Rate 1.0 . Vital Sign Comment: [] EKG Rhythm: Sinus Rhythm Rhythm change?: N MD Notified?: - MD Response: Latest Childs Fall Score: 70 Fall Risk: High Risk Safety Measures: Call light Within Reach, Bed Alarm Zone 2, Side Rails Side Rails x3, Bed position Low and Locked. Fall Precautions: Yellow Socks Yellow Gown Door Sign Patient Fall Education Report given to [ROXI Lange].
[2020-11-30 20:00] VITALS: BP 121/66
[2020-12-01] VITALS (8 sets, daily range): BP systolic 101–122; BP diastolic 66–74
[2020-12-01] MEDS: NovoLOG Insulin Flexpen SUBQ SCH ×4 (05:34→21:00)
[2020-12-01] MEDS: Midodrine 10mg tab ORAL SCH ×3 (05:40→21:00)
--- NOTE | 2020-12-01 07:00 | NUR ---
NURSE HAND-OFF: Important Events on Shift: No insulin due to normal BS, 0600 midodrine given, BM x2 Patient Status: calm Diet: ccho medium Pending Orders: Pending Results/Labs: Pending MD notification: Latest Vital Signs: Temperature 97.8 , Pulse 98 , B/P 101 /66 , Respiratory Rate 20 , O2 SAT 98 , Bi-pap, O2 Flow Rate 1.0 . Vital Sign Comment: VSS Latest Childs Fall Score: 70 Fall Risk: High Risk Safety Measures: Call light Within Reach, Bed Alarm Zone 2, Side Rails Side Rails x3, Bed position Low and Locked. Fall Precautions: Yellow Socks Yellow Gown Door Sign Patient Fall Education Report given to Waqas. Addendum: 12/01/20 at 0713 by Nazario Méndez RN report given to ROXI River
--- NOTE | 2020-12-01 07:33 | NUR ---
NURSE NOTES: Report received from Nazario DIANE, rounds made. Patient resting in semi-fowlers position in bed. AOx4, calm. Respirations even/unlabored on O2 1L, sometimes takes off, will try to wean off O2. RFA saline lock, intact. Condom cath in place, y/cl urine noted. Abdomen distended, firm, right lower abdomen with bandaid, CDI. Bilateral FA, very dry, rough, flaky will apply medicated cream as ordered, will provide skin care/precautions. Call light in reach, bed in lowest position, will continue to monitor.
--- NOTE | 2020-12-01 08:43 | Surgery Progress Note ---
Surgery Progress Note Subjective Additional Comments afebrile,HD stable comfortable no complaints eating well no n/v Objective Last 24 Hour Vital Signs Date Time Temp Pulse Resp B/P (MAP) Pulse Ox O2 Delivery O2 Flow Rate FiO2 12/01/20 04:00 97.8 98 20 101/66 (78) 98 12/01/20 00:00 97.4 96 20 116/74 (88) 99 11/30/20 21:00 Nasal Cannula 1.0 11/30/20 20:00 97.8 90 20 121/66 (84) 99 11/30/20 19:55 96 Nasal Cannula 1.0 24 11/30/20 16:00 98.1 95 18 107/68 (81) 94 11/30/20 12:00 98.0 90 20 105/65 (78) 98 11/30/20 10:15 96 Nasal Cannula 1.0 24 11/30/20 09:00 Nasal Cannula 1.0 I&O Intake and Output 11/30/20 12/01/20 19:00 07:00 Intake Total 1080 ml Output Total 750 ml Balance 1080 ml -750 ml Intake Oral 1080 ml Output Urine Total 750 ml # Voids 2 # Bowel Movements 2 3 Dressing: dry Cardiovascular: RSR Respiratory: clear Abdomen: soft, non-tender, present bowel sounds, non-distended Extremities: no edema, no tenderness, no cyanosis Laboratory Tests Test 11/30/20 11:05 11/30/20 16:38 11/30/20 19:47 12/01/20 05:34 POC Whole Blood Glucose 104 MG/DL (74-106) 133 MG/DL (74-106) H 124 MG/DL (74-106) H 105 MG/DL (74-106) Plan Problems: (1) Deep tissue injury Assessment & Plan: Pt presented on admission with DTPI Thoracic Spine(L)1.8cm x (W)1cm. Base of Pressure Injury is purpuric with surrounding non-blanchable erythema. Pt complained of tenderness at site. Non-Blanchable erythema without induration noted to Sacrum,R and L Gluteal cheeks including Bilat Ischial tuberosities. Rocker bottom foot noted to Both R and L feet. Both heels are callused,dry and easily blanchable. Tx.Plan: Apply Cavilon Skin Barrier To Thoracic DTPI. Cover with Optifoam drsg. Change every 3 days and prn. Apply Moisture Barrier Paste to Sacrum. Cover with Optifoam drsg. Change every 3 days and prn. Apply Cavilon Skin Barrier to R and L gluteal cheeks and Bilat Ischial tuberosities with each Incontinence care. Reposition at least every 2Hours or as tolerated. Off-load heels with pillow. (2) Hepatic encephalopathy (3) Hypokalemia (4) Ascites (5) Severe sepsis (6) Cirrhosis Assessment & Plan: distended again may need repeat para gi input There is compressive atelectasis right lower lobe. Small right effusion noted. Right hemidiaphragm is elevated. There is a large amount of ascites. Slight nodularity of the hepatic contour noted suggestive of underlying cirrhotic changes. Spleen contains some scattered granulomas. Gallbladder is isodense to liver likely containing tumefactive sludge. The pancreas is unremarkable. Adrenals are normal in morphology. The kidneys are normal in size, shape and axis. Small bowel loops are nondistended. The colon is also nondistended with average amount of stool. The appendix is not visualized. There is no free air. No pathologic adenopathy demonstrated. Urinary bladder appears unremarkable. Degenerative changes of the lumbar spine noted. IMPRESSION: CIRRHOSIS WITH LARGE AMOUNT OF ASCITES. SPLENIC GRANULOMAS. SLUDGE IN THE GALLBLADDER. SMALL RIGHT PLEURAL EFFUSION WITH COMPRESSIVE ATELECTASIS RIGHT LOWER LOBE. ELEVATED RIGHT HEMIDIAPHRAGM. (7) AMS (altered mental status) (8) Electrolyte imbalance (9) Renal failure (ARF), acute on chronic (10) Anemia (11) HTN (hypertension) (12) DMII (diabetes mellitus, type 2) Theodore Alves Dec 01, 2020 08:43
[2020-12-01] MEDS: Allopurinol 100mg Tab ORAL SCH (10:07)
[2020-12-01] MEDS: Magnesium Oxide 400mg tab ORAL SCH ×3 (10:08→18:17)
[2020-12-01] MEDS: Vitamin D 1000 units Tab ORAL SCH (10:08)
[2020-12-01] MEDS: Spironolactone 50mg tab ORAL SCH (10:09)
[2020-12-01] MEDS: Lactulose 20gm/30ml UDC ORAL SCH ×2 (10:10→18:17)
[2020-12-01] MEDS: CLOBETASOL 0.05% TOPIC SCH ×2 (10:11→18:17)
--- NOTE | 2020-12-01 10:30 | NUR ---
NURSE NOTES: Dr. Encarnacion notified of BP 104/73 and HR 98, and no IV access d/t dc by patient, orders for okay to administer aldactone and lasix with bp 104/73 and okay to switch lasix IV to PO, will follow as ordered.
[2020-12-01] MEDS: Furosemide 40mg tab ORAL SCH (11:32)
[2020-12-01] MEDS: HYDROcodone/Acetamin 5/325 tab ORAL PRN ×2 (12:57→21:10)
--- NOTE | 2020-12-01 13:00 | NUR ---
NURSE NOTES: Dr. Coombs notified that IV heplock was dc by patient, orders for okay no IV access, no need to restart IV at this time.
--- NOTE | 2020-12-01 13:06 | NUR ---
CASE MANAGEMENT:REVIEW 12/01/2020 SI: SEPSIS. HYPOXIA. ETOH ABUSE. MASSIVE ASCITES 97.9 96 20 105/71 96% ON 1L/NC [id number] IS: LASIX PO QD NORCO PO Q6HRS PRN LACTULOSE PO BID ALDACTONE PO QD PROTONIX PO QD ALLOPURINOL PO QD MIDODRINE PO Q8HRS : MED/SURG STATUS PLAN: PATIENT IS FROM HOME BUT NOW NEEDS SNF PLACEMENT
--- NOTE | 2020-12-01 13:14 | Nephrology Progress Note ---
Assessment/Plan Problem List: (1) Renal failure (ARF), acute on chronic (2) Electrolyte imbalance (3) Hypokalemia (4) Cirrhosis (5) DMII (diabetes mellitus, type 2) (6) Anemia (7) HTN (hypertension) Assessment Renal failure most likely acute on chronic Electrolyte imbalances, hypokalemia Sepsis Hepatic encephalopathy, ascites, fatty liver Anemia History of EtOH abuse, history of tobacco abuse, history of drug abuse Diabetes mellitus type 2 Hypertension Lymphopenia, leukocytosis, hypoxia Plan December 01: No CHEM panel drawn today. Status quo. Full code. Medication list reviewed. Check lab tomorrow. Overall stable from renal standpoint of view. November 30: Labs reviewed. Renal parameters unchanged. Continue per GI. Not much to add from renal standpoint of view. November 29: Labs reviewed. Serum sodium 134 unchanged. Renal parameters are stable. Continue per GI. November 28: Labs reviewed. Renal parameters stable. Serum sodium 134. Continue per GI. November 27: Labs reviewed. Renal parameters stable. Continue per consultants. November 25: No CHEM panel drawn today. Patient clinically appears to be stable. Will continue to monitor electrolytes and renal parameters while in- house. Per orders. November 24: Labs reviewed. Renal parameters stable. Continues to have ascites requiring periodic Paracentesis. Not much to add from renal standpoint to view. Medication list reviewed. November 23: No CHEM panel drawn today. Clinically stable. Meds reviewed. Continue per current regimen. Check lab tomorrow. November 22: Labs reviewed. Electrolytes reasonably well-maintained. Continue per current treatment plan. November 21: Labs reviewed. Abnormal electrolytes addressed. Neutra-Phos discontinued. Continue per current management. November 20: Labs reviewed. Renal parameters stable. Massive ascites and GI discomfort persists. Medication list reviewed. November 19: Labs reviewed. Serum sodium 133. Normal saline 500 cc bolus given. Continue per consultants. November 18: Labs reviewed. Abnormal electrolytes addressed. Continue per consultants November 17: Labs reviewed. Renal parameters stable. Medication list reviewed. On Lasix and Aldactone. We will continue to monitor blood chemistries and electrolytes. November 16: Labs reviewed. Electrolytes within normal limit now. Continue her current management. November 15: Labs reviewed. Low magnesium addressed. Continue per current management. November 14: Labs reviewed. Renal parameters are stable continue per current management. Vitamin D supplement given. November 13: Labs reviewed. Normal renal parameters. Abnormal electrolytes noted and addressed. Vitamin D level results still pending November 12: Labs reviewed. Serum creatinine now within normal limits. Much improved from renal standpoint of view. November 11: Labs reviewed. Serum creatinine 1.6. Stable from renal standpoint reviewed. November 10: Labs reviewed. Serum creatinine lowered to 1.9. Continue to monitor renal parameters. Magnesium supplement ordered. November 09: No CHEM panel drawn today. Will DC Hernandez due to pain in the urethra. We will continue to monitor renal parameters. Continue per consultants. November 08: Labs reviewed. Serum creatinine 2.3 unchanged. Electrolytes within normal limit. Continue per consultants. November 07: Labs reviewed. Serum creatinine down to 2.3. Continue to monitor electrolytes. Low magnesium addressed. November 06: Labs reviewed. Serum creatinine 2.5 unchanged. Continue per consultants. November 05: Labs reviewed. Serum creatinine plateauing. Status quo. Electrolyte acceptable. Now on oxygen by cannula. Continue per consultants. November 04 labs reviewed. Patient full code. On Venturi mask. Low potassium addressed. Serum creatinine rising. Continue to monitor renal parameters. Allopurinol initiated November 03: Labs reviewed. Medication list reviewed. Abnormal electrolyte addressed. Continue monitor renal parameters. Continue per consultants. Previously: Trial of 3% saline and albumin bolus Potassium supplement Monitor renal parameters, ammonia, electrolytes ordered Subjective ROS Limited/Unobtainable: No Constitutional: Reports: malaise, weakness Objective Objective Last 24 Hour Vital Signs Date Time Temp Pulse Resp B/P (MAP) Pulse Ox O2 Delivery O2 Flow Rate FiO2 12/01/20 11:30 97.9 96 20 105/71 (82) 96 12/01/20 10:00 98 104/73 (83) 12/01/20 08:00 98.3 99 20 117/73 (88) 94 12/01/20 04:00 97.8 98 20 101/66 (78) 98 12/01/20 00:00 97.4 96 20 116/74 (88) 99 11/30/20 21:00 Nasal Cannula 1.0 11/30/20 20:00 97.8 90 20 121/66 (84) 99 11/30/20 19:55 96 Nasal Cannula 1.0 24 11/30/20 16:00 98.1 95 18 107/68 (81) 94 Intake and Output 11/30/20 12/01/20 19:00 07:00 Intake Total 1080 ml Output Total 750 ml Balance 1080 ml -750 ml Intake Oral 1080 ml Output Urine Total 750 ml # Voids 2 # Bowel Movements 2 3 Current Medications Medications (Trade) Dose Ordered Sig/Kylah Route PRN Reason Start Time Stop Time Status Last Admin Dose Admin Acetaminophen (Tylenol) 500 mg Q6H PRN ORAL Mild Pain 11/02/20 08:30 12/02/20 08:29 11/23/20 17:17 Acetaminophen (Tylenol) 500 mg Q6H PRN ORAL fever > 100.2 11/02/20 08:45 12/02/20 08:44 Acetaminophen/ Hydrocodone Bitart ([place] 5/325) 1 tab Q6H PRN ORAL Severe Pain (Pain Scale 7-10) 11/24/20 19:00 12/01/20 18:59 12/01/20 12:57 Allopurinol (Zyloprim) 200 mg DAILY ORAL 11/04/20 15:00 12/04/20 14:59 12/01/20 10:07 Clobetasol Propionate (Temovate) 1 applic TWICE A DAY TOPIC 11/21/20 13:30 02/19/21 13:29 12/01/20 10:11 Dextrose (Dextrose 50%) 25 ml Q30M PRN IV Hypoglycemia 11/01/20 18:30 01/30/21 18:29 Dextrose (Dextrose 50%) 50 ml Q30M PRN IV Hypoglycemia 11/01/20 18:30 01/30/21 18:29 Folic Acid (Folate) 3 mg DAILY ORAL 11/03/20 13:15 12/03/20 13:14 12/01/20 10:08 Furosemide (Lasix) 40 mg DAILY ORAL 12/01/20 11:00 12/31/20 10:59 12/01/20 11:32 Insulin Aspart (NovoLOG) BEFORE MEALS AND HS SUBQ 11/01/20 21:00 01/30/21 20:59 11/28/20 11:37 Lactulose (Cephulac) 20 gm BID ORAL 11/20/20 09:00 12/20/20 08:59 12/01/20 10:10 Magnesium Oxide (Mag-Ox 400mg) 400 mg THREE TIMES A DAY ORAL 11/13/20 13:00 12/13/20 12:59 12/01/20 12:56 Midodrine (Pro-Amatine) 10 mg Q8HR ORAL 11/02/20 14:00 01/31/21 13:59 12/01/20 05:40 Pantoprazole (Protonix) 40 mg DAILY ORAL 11/14/20 09:00 12/14/20 08:59 12/01/20 10:08 Spironolactone (Aldactone) 100 mg DAILY ORAL 11/16/20 09:00 12/16/20 08:59 12/01/20 10:09 Vitamin D (Vitamin D) 5,000 unit DAILY ORAL 11/16/20 09:00 12/16/20 08:59 12/01/20 10:08 Laboratory Tests 11/30/20 16:38: POC Whole Blood Glucose 133H 11/30/20 19:47: POC Whole Blood Glucose 124H 12/01/20 05:34: POC Whole Blood Glucose 105 Height (Feet): 6 Height (Inches): 1.00 Weight (Pounds): 200 General Appearance: no apparent distress Cardiovascular: tachycardia Respiratory/Chest: decreased breath sounds Abdomen: distended Kalin Pozo MD Dec 01, 2020 13:14
--- NOTE | 2020-12-01 16:33 | Internal Med Progress Note ---
Subjective Date of Service: Dec 01, 2020 Physician Name Jered Case Attending Physician Ramon Coombs MD Current Medications Medications (Trade) Dose Ordered Sig/Kylah Route PRN Reason Start Time Stop Time Status Last Admin Dose Admin Acetaminophen (Tylenol) 500 mg Q6H PRN ORAL Mild Pain 11/02/20 08:30 12/02/20 08:29 11/23/20 17:17 Acetaminophen (Tylenol) 500 mg Q6H PRN ORAL fever > 100.2 11/02/20 08:45 12/02/20 08:44 Acetaminophen/ Hydrocodone Bitart ([place] 5/325) 1 tab Q6H PRN ORAL Severe Pain (Pain Scale 7-10) 11/24/20 19:00 12/01/20 18:59 12/01/20 12:57 Allopurinol (Zyloprim) 200 mg DAILY ORAL 11/04/20 15:00 12/04/20 14:59 12/01/20 10:07 Clobetasol Propionate (Temovate) 1 applic TWICE A DAY TOPIC 11/21/20 13:30 02/19/21 13:29 12/01/20 10:11 Dextrose (Dextrose 50%) 25 ml Q30M PRN IV Hypoglycemia 11/01/20 18:30 01/30/21 18:29 Dextrose (Dextrose 50%) 50 ml Q30M PRN IV Hypoglycemia 11/01/20 18:30 01/30/21 18:29 Folic Acid (Folate) 3 mg DAILY ORAL 11/03/20 13:15 12/03/20 13:14 12/01/20 10:08 Furosemide (Lasix) 40 mg DAILY ORAL 12/01/20 11:00 12/31/20 10:59 12/01/20 11:32 Insulin Aspart (NovoLOG) BEFORE MEALS AND HS SUBQ 11/01/20 21:00 01/30/21 20:59 11/28/20 11:37 Lactulose (Cephulac) 20 gm BID ORAL 11/20/20 09:00 12/20/20 08:59 12/01/20 10:10 Magnesium Oxide (Mag-Ox 400mg) 400 mg THREE TIMES A DAY ORAL 11/13/20 13:00 12/13/20 12:59 12/01/20 12:56 Midodrine (Pro-Amatine) 10 mg Q8HR ORAL 11/02/20 14:00 01/31/21 13:59 12/01/20 05:40 Pantoprazole (Protonix) 40 mg DAILY ORAL 11/14/20 09:00 12/14/20 08:59 12/01/20 10:08 Spironolactone (Aldactone) 100 mg DAILY ORAL 11/16/20 09:00 12/16/20 08:59 12/01/20 10:09 Vitamin D (Vitamin D) 5,000 unit DAILY ORAL 11/16/20 09:00 12/16/20 08:59 12/01/20 10:08 Allergies: Coded Allergies: No Known Allergies (Unverified , 10/02/16) ROS Limited/Unobtainable: No Constitutional: Reports: no symptoms HEENT: Reports: no symptoms Cardiovascular: Reports: no symptoms Respiratory: Reports: no symptoms Gastrointestinal/Abdominal: Reports: no symptoms Genitourinary: Reports: no symptoms Neurologic/Psychiatric: Reports: no symptoms Subjective 60 YO M with history of alcohol dependence admitted with shortness of breath. Now respiratroy failure. Cover for Int Med-DR Coombs. S/P paracentesis 11/02/20 and repeat on 11/26/20 Objective Last Vital Signs Date Time Temp Pulse Resp B/P (MAP) Pulse Ox O2 Delivery O2 Flow Rate FiO2 12/01/20 14:50 90 114/73 (87) 12/01/20 11:30 97.9 20 96 11/30/20 21:00 Nasal Cannula 1.0 11/30/20 19:55 24 Laboratory Tests Test 11/30/20 16:38 11/30/20 19:47 12/01/20 05:34 POC Whole Blood Glucose 133 MG/DL (74-106) H 124 MG/DL (74-106) H 105 MG/DL (74-106) Intake and Output 11/30/20 12/01/20 19:00 07:00 Intake Total 1080 ml Output Total 750 ml Balance 1080 ml -750 ml Intake Oral 1080 ml Output Urine Total 750 ml # Voids 2 # Bowel Movements 2 3 Objective Objective General: No acute distress, awake and alert HEENT: NCAT, sclera anicteric, PERRL, EOMI. Neck: Supple, no significant jugular venous distention, Lungs: Nasal canula; Fair inspiratory effort, , no Wheeze or Rales. Heart: Regular rate and rhythm, normal S1/S2, no murmurs Abdomen: soft, nontender, +distended. positive fluid shift, bowel sound present. / Rectal: Refused and deferred. Extremities: No Cyanosis , clubbing or edema. Neuro: A&O x 3, Able to move all extremities Skin: warm, no rash Assessment/Plan Assessment/Plan Assessment/Plan Assessment/Plan Sepsis Acute Hypoxia on BiPAP >> NRB mask >> venturi mask>>nasal canula alcohol abuse Liver Cirrhosis, Fatty liver Massive ascites renal failure DM2 HTN Plan: ABX=S/P vanco and Zosyn High volume paracentesis, COVID PCR=Neg GI=Dr Encarnacion Nephrol=Dr Pozo S/P paracentesis 11/02/20 and repeat 11/26/20 ID=Dr Banks Discharge planning=[facility] Jered Case MD Dec 01, 2020 16:33
--- NOTE | 2020-12-01 19:10 | NUR ---
NURSE HAND-OFF: Important Events on Shift:No IV access, DCP planning home vs SNF, BM x2, Clobetasol cream ordered new tube from pharmacy (out of stock will be delivered on Thursday), [place] 5/325 mg x1 Patient Status: stable Diet: CCHO Pending Orders: Labs AM Pending Results/Labs:CBC CMP MG PHOS URIC 12/02 Pending MD notification:none Latest Vital Signs: Temperature 97.6 , Pulse 93 , B/P 121 /68 , Respiratory Rate 20 , O2 SAT 99 , Bi-pap, O2 Flow Rate 1.0 . Vital Sign Comment: none Latest Childs Fall Score: 50 Fall Risk: High Risk Safety Measures: Call light Within Reach, Bed Alarm Zone 2, Side Rails Side Rails x3, Bed position Low and Locked. Fall Precautions: Yellow Socks Yellow Gown Door Sign Patient Fall Education Report given to Seda DIANE.
--- NOTE | 2020-12-01 19:38 | NUR ---
NURSE NOTES: Received report from Aleta. RODO x 4, on NC 1l. NO IV access and MD aware. Condom cath in place. Denies pain or discomfort. ABD tendered and distended. No acute distress noted at this time. Wound pic not taken from previous shift. Bipap at bedside for night time prn. Bed locked, lowest position, alarm on, side rails up, call light within reach. Will continue to monitor.
--- NOTE | 2020-12-01 20:13 | General Progress Note ---
Subjective Allergies: Coded Allergies: No Known Allergies (Unverified , 10/02/16) Subjective above noted eating well some central abd pain after PO Objective Last 24 Hour Vital Signs Date Time Temp Pulse Resp B/P (MAP) Pulse Ox O2 Delivery O2 Flow Rate FiO2 12/01/20 16:00 97.6 93 20 121/68 (85) 99 12/01/20 14:50 90 114/73 (87) 12/01/20 11:30 97.9 96 20 105/71 (82) 96 12/01/20 10:00 98 104/73 (83) 12/01/20 09:00 Nasal Cannula 1.0 12/01/20 08:00 98.3 99 20 117/73 (88) 94 12/01/20 04:00 97.8 98 20 101/66 (78) 98 12/01/20 00:00 97.4 96 20 116/74 (88) 99 11/30/20 21:00 Nasal Cannula 1.0 Intake and Output 11/30/20 12/01/20 19:00 07:00 Intake Total 1080 ml Output Total 750 ml Balance 1080 ml -750 ml Intake Oral 1080 ml Output Urine Total 750 ml # Voids 2 # Bowel Movements 2 3 Laboratory Tests 12/01/20 05:34: POC Whole Blood Glucose 105 Height (Feet): 6 Height (Inches): 1.00 Weight (Pounds): 200 Objective WDWN WM NCAT supple CTA RR abd soft,mildly distended no edema non focal Assessment/Plan Status: stable Assessment/Plan: Assessment/Plan Problem List: (1) Cirrhosis ICD Codes: K74.60 - Unspecified cirrhosis of liver SNOMED: 81409671 (2) Hepatic encephalopathy ICD Codes: K72.90 - Hepatic failure, unspecified without coma; R65.20 - Severe sepsis without septic shock SNOMED: 26484954 (3) Hypokalemia ICD Codes: E87.6 - Hypokalemia; R65.20 - Severe sepsis without septic shock SNOMED: 11214058 (4) Ascites ICD Codes: R18.8 - Other ascites SNOMED: 317559365 (5) Severe sepsis ICD Codes: A41.9 - Sepsis, unspecified organism; R65.20 - Severe sepsis without septic shock SNOMED: 96879803 (6) AMS (altered mental status) ICD Codes: R41.82 - Altered mental status, unspecified SNOMED: 194481419 Assessment/Plan: po as tolerated Elevate HOB lactulose PPI Igor Askew MD Dec 01, 2020 20:13
[2020-12-02] VITALS (7 sets, daily range): BP systolic 106–126; BP diastolic 62–87
[2020-12-02] MEDS: Midodrine 10mg tab ORAL SCH ×3 (05:11→20:47)
[2020-12-02] MEDS: HYDROcodone/Acetamin 5/325 tab ORAL PRN ×2 (05:26→18:43)
[2020-12-02] MEDS: NovoLOG Insulin Flexpen SUBQ SCH ×4 (05:28→20:47)
--- NOTE | 2020-12-02 06:24 | NUR ---
NURSE HAND-OFF: Important Events on Shift:SOB and increased O2 3l Patient Status: stable Diet: ccho m Pending Orders: [] Pending Results/Labs:[] Pending MD notification:[] Latest Vital Signs: Temperature 97.8 , Pulse 99 , B/P 126 /87 , Respiratory Rate 16 , O2 SAT 97 , Bi-pap, O2 Flow Rate 1.0 . Vital Sign Comment: [] Latest Childs Fall Score: 50 Fall Risk: High Risk Safety Measures: Call light Within Reach, Bed Alarm Zone 2, Side Rails Side Rails x3, Bed position Low and Locked. Fall Precautions: Yellow Socks Yellow Gown Door Sign Patient Fall Education Addendum: 12/02/20 at 0721 by TAHMINA SCHMIDT RN RN Report given to Aleta
[2020-12-02 06:38] LABS: BASOPHILS % (AUTO) 0.9 % (0.0-2.0); EOSINOPHILS % (AUTO) 1.2 % (0.0-3.0); HEMATOCRIT 29.2 % (42.0-52.0); HEMOGLOBIN 9.3 G/DL (14.2-18.0); LYMPHOCYTES % (AUTO) 8.6 % (20.0-45.0); MEAN CORPUSCULAR VOLUME 105 FL (80-99); MONOCYTES % (AUTO) 10.1 % (1.0-10.0); NEUTROPHILS % (AUTO) 79.1 % (45.0-75.0); PLATELET COUNT 245 K/UL (150-450); RED BLOOD COUNT 2.79 M/UL (4.70-6.10); RED CELL DISTRIBUTION WIDTH 16.9 % (11.6-14.8); WHITE BLOOD COUNT 11.5 K/UL (4.8-10.8)
[2020-12-02 07:06] LABS: ALANINE AMINOTRANSFERASE 19 U/L (12-78); ALBUMIN 1.9 G/DL (3.4-5.0); ALBUMIN/GLOBULIN RATIO 0.4 (1.0-2.7); ALKALINE PHOSPHATASE 141 U/L (46-116); ANION GAP 3 mmol/L (5-15); ASPARTATE AMINO TRANSFERASE 37 U/L (15-37); BILIRUBIN,TOTAL 0.6 MG/DL (0.2-1.0); BLOOD UREA NITROGEN 16 mg/dL (7-18); CALCIUM 8.9 MG/DL (8.5-10.1); CARBON DIOXIDE 35 MMOL/L (21-32); CHLORIDE 99 MMOL/L (98-107); PHOSPHORUS 4.1 MG/DL (2.5-4.9); SODIUM 137 MMOL/L (136-145)
--- NOTE | 2020-12-02 07:21 | NUR ---
NURSE NOTES: Report received from Seda DIANE, rounds made. Patient resting in semi-fowlers position in bed. AOx4, calm. Respirations even/unlabored on O2 3L, no SOB , no cough. No IV access. Condom cath in place, y/cl urine noted. Abdomen distended, firm, right lower abdomen with bandaid, CDI. Bilateral FA, very dry, rough, flaky will apply medicated cream as ordered, will provide skin care/precautions. Call light in reach, bed in lowest position, will continue to monitor.
[2020-12-02] MEDS: Lactulose 20gm/30ml UDC ORAL SCH ×2 (09:46→17:39)
[2020-12-02] MEDS: Spironolactone 50mg tab ORAL SCH (09:46)
[2020-12-02] MEDS: Furosemide 40mg tab ORAL SCH (09:47)
[2020-12-02] MEDS: Magnesium Oxide 400mg tab ORAL SCH ×3 (09:47→17:40)
[2020-12-02] MEDS: Vitamin D 1000 units Tab ORAL SCH (09:48)
[2020-12-02] MEDS: Allopurinol 100mg Tab ORAL SCH (09:48)
[2020-12-02] MEDS: CLOBETASOL 0.05% TOPIC SCH ×2 (09:49→17:40)
--- NOTE | 2020-12-02 10:43 | Surgery Progress Note ---
Surgery Progress Note Subjective Additional Comments doing well no complaints no n/v Objective Last 24 Hour Vital Signs Date Time Temp Pulse Resp B/P (MAP) Pulse Ox O2 Delivery O2 Flow Rate FiO2 12/02/20 04:00 97.8 99 16 126/87 (100) 97 12/02/20 00:00 97.5 94 15 120/76 (91) 97 12/01/20 20:34 Nasal Cannula 1.0 12/01/20 20:00 97.8 100 15 122/73 (89) 97 12/01/20 16:00 97.6 93 20 121/68 (85) 99 12/01/20 14:50 90 114/73 (87) 12/01/20 11:30 97.9 96 20 105/71 (82) 96 I&O Intake and Output 12/01/20 12/02/20 19:00 07:00 Intake Total 920 ml 1000 ml Output Total 2000 ml 1300 ml Balance -1080 ml -300 ml Intake Oral 920 ml 1000 ml Output Urine Total 2000 ml 1300 ml # Voids 1 # Bowel Movements 3 Cardiovascular: RSR Respiratory: clear Abdomen: soft, flat, non-tender, present bowel sounds, decreased bowel sounds Extremities: no edema, no tenderness, no cyanosis Laboratory Tests Test 12/01/20 11:49 12/01/20 16:58 12/02/20 05:00 POC Whole Blood Glucose 105 MG/DL (74-106) 146 MG/DL (74-106) H White Blood Count 11.5 K/UL (4.8-10.8) H Red Blood Count 2.79 M/UL (4.70-6.10) L Hemoglobin 9.3 G/DL (14.2-18.0) L Hematocrit 29.2 % (42.0-52.0) L Mean Corpuscular Volume 105 FL (80-99) H Mean Corpuscular Hemoglobin 33.5 PG (27.0-31.0) H Mean Corpuscular Hemoglobin Concent 31.9 G/DL (32.0-36.0) L Red Cell Distribution Width 16.9 % (11.6-14.8) H Platelet Count 245 K/UL (150-450) Mean Platelet Volume 5.0 FL (6.5-10.1) L Neutrophils (%) (Auto) 79.1 % (45.0-75.0) H Lymphocytes (%) (Auto) 8.6 % (20.0-45.0) L Monocytes (%) (Auto) 10.1 % (1.0-10.0) H Eosinophils (%) (Auto) 1.2 % (0.0-3.0) Basophils (%) (Auto) 0.9 % (0.0-2.0) Sodium Level 137 MMOL/L (136-145) Potassium Level 4.0 MMOL/L (3.5-5.1) Chloride Level 99 MMOL/L (98-107) Carbon Dioxide Level 35 MMOL/L (21-32) H Anion Gap 3 mmol/L (5-15) L Blood Urea Nitrogen 16 mg/dL (7-18) Creatinine 1.0 MG/DL (0.55-1.30) Estimat Glomerular Filtration Rate > 60 mL/min (>60) Glucose Level 106 MG/DL (74-106) Uric Acid 4.0 MG/DL (2.6-7.2) Calcium Level 8.9 MG/DL (8.5-10.1) Phosphorus Level 4.1 MG/DL (2.5-4.9) Magnesium Level 2.0 MG/DL (1.8-2.4) Total Bilirubin 0.6 MG/DL (0.2-1.0) Aspartate Amino Transf (AST/SGOT) 37 U/L (15-37) Alanine Aminotransferase (ALT/SGPT) 19 U/L (12-78) Alkaline Phosphatase 141 U/L (46-116) H Total Protein 7.1 G/DL (6.4-8.2) Albumin 1.9 G/DL (3.4-5.0) L Globulin 5.2 g/dL Albumin/Globulin Ratio 0.4 (1.0-2.7) L Plan Problems: (1) Deep tissue injury Assessment & Plan: Pt presented on admission with DTPI Thoracic Spine(L)1.8cm x (W)1cm. Base of Pressure Injury is purpuric with surrounding non-blanchable erythema. Pt complained of tenderness at site. Non-Blanchable erythema without induration noted to Sacrum,R and L Gluteal cheeks including Bilat Ischial tuberosities. Rocker bottom foot noted to Both R and L feet. Both heels are callused,dry and easily blanchable. Tx.Plan: Apply Cavilon Skin Barrier To Thoracic DTPI. Cover with Optifoam drsg. Change every 3 days and prn. Apply Moisture Barrier Paste to Sacrum. Cover with Optifoam drsg. Change every 3 days and prn. Apply Cavilon Skin Barrier to R and L gluteal cheeks and Bilat Ischial tuberosities with each Incontinence care. Reposition at least every 2Hours or as tolerated. Off-load heels with pillow. (2) Hepatic encephalopathy (3) Hypokalemia (4) Ascites (5) Severe sepsis (6) Cirrhosis Assessment & Plan: distended again may need repeat para gi input There is compressive atelectasis right lower lobe. Small right effusion noted. Right hemidiaphragm is elevated. There is a large amount of ascites. Slight nodularity of the hepatic contour noted suggestive of underlying cirrhotic changes. Spleen contains some scattered granulomas. Gallbladder is isodense to liver likely containing tumefactive sludge. The pancreas is unremarkable. Adrenals are normal in morphology. The kidneys are normal in size, shape and axis. Small bowel loops are nondistended. The colon is also nondistended with average amount of stool. The appendix is not visualized. There is no free air. No pathologic adenopathy demonstrated. Urinary bladder appears unremarkable. Degenerative changes of the lumbar spine noted. IMPRESSION: CIRRHOSIS WITH LARGE AMOUNT OF ASCITES. SPLENIC GRANULOMAS. SLUDGE IN THE GALLBLADDER. SMALL RIGHT PLEURAL EFFUSION WITH COMPRESSIVE ATELECTASIS RIGHT LOWER LOBE. ELEVATED RIGHT HEMIDIAPHRAGM. (7) AMS (altered mental status) (8) Electrolyte imbalance (9) Renal failure (ARF), acute on chronic (10) Anemia (11) HTN (hypertension) (12) DMII (diabetes mellitus, type 2) Theodore Alves Dec 02, 2020 10:43
--- NOTE | 2020-12-02 12:35 | Nephrology Progress Note ---
Assessment/Plan Problem List: (1) Renal failure (ARF), acute on chronic (2) Electrolyte imbalance (3) Hypokalemia (4) Cirrhosis (5) DMII (diabetes mellitus, type 2) (6) Anemia (7) HTN (hypertension) Assessment Renal failure most likely acute on chronic Electrolyte imbalances, hypokalemia Sepsis Hepatic encephalopathy, ascites, fatty liver Anemia History of EtOH abuse, history of tobacco abuse, history of drug abuse Diabetes mellitus type 2 Hypertension Lymphopenia, leukocytosis, hypoxia Plan December 02: Labs reviewed. Renal parameters and electrolytes stable. Patient remains full code. Continue per consultants. December 01: No CHEM panel drawn today. Status quo. Full code. Medication list reviewed. Check lab tomorrow. Overall stable from renal standpoint of view. November 30: Labs reviewed. Renal parameters unchanged. Continue per GI. Not much to add from renal standpoint of view. November 29: Labs reviewed. Serum sodium 134 unchanged. Renal parameters are stable. Continue per GI. November 28: Labs reviewed. Renal parameters stable. Serum sodium 134. Continue per GI. November 27: Labs reviewed. Renal parameters stable. Continue per consultants. November 25: No CHEM panel drawn today. Patient clinically appears to be stable. Will continue to monitor electrolytes and renal parameters while in- house. Per orders. November 24: Labs reviewed. Renal parameters stable. Continues to have ascites requiring periodic Paracentesis. Not much to add from renal standpoint to view. Medication list reviewed. November 23: No CHEM panel drawn today. Clinically stable. Meds reviewed. Continue per current regimen. Check lab tomorrow. November 22: Labs reviewed. Electrolytes reasonably well-maintained. Continue per current treatment plan. November 21: Labs reviewed. Abnormal electrolytes addressed. Neutra-Phos discontinued. Continue per current management. November 20: Labs reviewed. Renal parameters stable. Massive ascites and GI discomfort persists. Medication list reviewed. November 19: Labs reviewed. Serum sodium 133. Normal saline 500 cc bolus given. Continue per consultants. November 18: Labs reviewed. Abnormal electrolytes addressed. Continue per consultants November 17: Labs reviewed. Renal parameters stable. Medication list reviewed. On Lasix and Aldactone. We will continue to monitor blood chemistries and electrolytes. November 16: Labs reviewed. Electrolytes within normal limit now. Continue her current management. November 15: Labs reviewed. Low magnesium addressed. Continue per current management. November 14: Labs reviewed. Renal parameters are stable continue per current management. Vitamin D supplement given. November 13: Labs reviewed. Normal renal parameters. Abnormal electrolytes noted and addressed. Vitamin D level results still pending November 12: Labs reviewed. Serum creatinine now within normal limits. Much improved from renal standpoint of view. November 11: Labs reviewed. Serum creatinine 1.6. Stable from renal standpoint reviewed. November 10: Labs reviewed. Serum creatinine lowered to 1.9. Continue to monitor renal parameters. Magnesium supplement ordered. November 09: No CHEM panel drawn today. Will DC Hernandez due to pain in the urethra. We will continue to monitor renal parameters. Continue per consultants. November 08: Labs reviewed. Serum creatinine 2.3 unchanged. Electrolytes within normal limit. Continue per consultants. November 07: Labs reviewed. Serum creatinine down to 2.3. Continue to monitor electrolytes. Low magnesium addressed. November 06: Labs reviewed. Serum creatinine 2.5 unchanged. Continue per consultants. November 05: Labs reviewed. Serum creatinine plateauing. Status quo. Electrolyte acceptable. Now on oxygen by cannula. Continue per consultants. November 04 labs reviewed. Patient full code. On Venturi mask. Low potassium addressed. Serum creatinine rising. Continue to monitor renal parameters. Allopurinol initiated November 03: Labs reviewed. Medication list reviewed. Abnormal electrolyte addressed. Continue monitor renal parameters. Continue per consultants. Previously: Trial of 3% saline and albumin bolus Potassium supplement Monitor renal parameters, ammonia, electrolytes ordered Subjective ROS Limited/Unobtainable: No Constitutional: Reports: malaise Objective Objective Last 24 Hour Vital Signs Date Time Temp Pulse Resp B/P (MAP) Pulse Ox O2 Delivery O2 Flow Rate FiO2 12/02/20 04:00 97.8 99 16 126/87 (100) 97 12/02/20 00:00 97.5 94 15 120/76 (91) 97 12/01/20 20:34 Nasal Cannula 1.0 12/01/20 20:00 97.8 100 15 122/73 (89) 97 12/01/20 16:00 97.6 93 20 121/68 (85) 99 12/01/20 14:50 90 114/73 (87) Intake and Output 12/01/20 12/02/20 19:00 07:00 Intake Total 920 ml 1000 ml Output Total 2000 ml 1300 ml Balance -1080 ml -300 ml Intake Oral 920 ml 1000 ml Output Urine Total 2000 ml 1300 ml # Voids 1 # Bowel Movements 3 Current Medications Medications (Trade) Dose Ordered Sig/Kylah Route PRN Reason Start Time Stop Time Status Last Admin Dose Admin Acetaminophen/ Hydrocodone Bitart ([place] 5/325) 1 tab Q6H PRN ORAL Severe Pain (Pain Scale 7-10) 12/01/20 21:00 12/08/20 20:59 12/02/20 05:26 Allopurinol (Zyloprim) 200 mg DAILY ORAL 11/04/20 15:00 12/04/20 14:59 12/02/20 09:48 Clobetasol Propionate (Temovate) 1 applic TWICE A DAY TOPIC 11/21/20 13:30 02/19/21 13:29 12/02/20 09:49 Dextrose (Dextrose 50%) 25 ml Q30M PRN IV Hypoglycemia 11/01/20 18:30 01/30/21 18:29 Dextrose (Dextrose 50%) 50 ml Q30M PRN IV Hypoglycemia 11/01/20 18:30 01/30/21 18:29 Folic Acid (Folate) 3 mg DAILY ORAL 11/03/20 13:15 12/03/20 13:14 12/02/20 09:46 Furosemide (Lasix) 40 mg DAILY ORAL 12/01/20 11:00 12/31/20 10:59 12/02/20 09:47 Insulin Aspart (NovoLOG) BEFORE MEALS AND HS SUBQ 11/01/20 21:00 01/30/21 20:59 12/01/20 17:00 Lactulose (Cephulac) 20 gm BID ORAL 11/20/20 09:00 12/20/20 08:59 12/02/20 09:46 Magnesium Oxide (Mag-Ox 400mg) 400 mg THREE TIMES A DAY ORAL 11/13/20 13:00 12/13/20 12:59 12/02/20 12:32 Midodrine (Pro-Amatine) 10 mg Q8HR ORAL 11/02/20 14:00 01/31/21 13:59 12/01/20 05:40 Pantoprazole (Protonix) 40 mg DAILY ORAL 11/14/20 09:00 12/14/20 08:59 12/02/20 09:47 Spironolactone (Aldactone) 100 mg DAILY ORAL 11/16/20 09:00 12/16/20 08:59 12/02/20 09:46 Vitamin D (Vitamin D) 5,000 unit DAILY ORAL 11/16/20 09:00 12/16/20 08:59 12/02/20 09:48 Laboratory Tests 12/01/20 16:58: POC Whole Blood Glucose 146H 12/02/20 05:00: White Blood Count 11.5H, Red Blood Count 2.79L, Hemoglobin 9.3L, Hematocrit 29.2L, Mean Corpuscular Volume 105H, Mean Corpuscular Hemoglobin 33.5H, Mean Corpuscular Hemoglobin Concent 31.9L, Red Cell Distribution Width 16.9H, Platelet Count 245, Mean Platelet Volume 5.0L, Neutrophils (%) (Auto) 79.1H, Lymphocytes (%) (Auto) 8.6L, Monocytes (%) (Auto) 10.1H, Eosinophils (%) (Auto) 1.2, Basophils (%) (Auto) 0.9, Sodium Level 137, Potassium Level 4.0, Chloride Level 99, Carbon Dioxide Level 35H, Anion Gap 3L, Blood Urea Nitrogen 16, Creatinine 1.0, Estimat Glomerular Filtration Rate > 60, Glucose Level 106, Uric Acid 4.0, Calcium Level 8.9, Phosphorus Level 4.1, Magnesium Level 2.0, Total Bilirubin 0.6, Aspartate Amino Transf (AST/SGOT) 37, Alanine Aminotransferase (ALT/SGPT) 19, Alkaline Phosphatase 141H, Total Protein 7.1, Albumin 1.9L, Globulin 5.2, Albumin/Globulin Ratio 0.4L 12/02/20 11:48: POC Whole Blood Glucose 117H Height (Feet): 6 Height (Inches): 1.00 Weight (Pounds): 200 General Appearance: no apparent distress Cardiovascular: tachycardia Respiratory/Chest: decreased breath sounds Abdomen: distended Kalin Pozo MD Dec 02, 2020 12:35
--- NOTE | 2020-12-02 13:30 | NUR ---
NURSE NOTES: Patient complains of SOB at rest, on O2 3LNC, at 1220, vitals stable, O2 sat 98%, noted SOB with speaking/calm, increased to 4L NC. HOB elevated. RT notified, assessed patient, applied Bipap for about 45 minutes then removed and back on O2 4LNC. Will continue to monitor.
--- NOTE | 2020-12-02 13:30 | NUR ---
PT Note Attempted to see patient for treatment but patient requested to defer PT today due to c/o SOB. CN was notified of patient's complaints.
--- NOTE | 2020-12-02 13:40 | Infectious Diseases Prog Note ---
Assessment/Plan 60yo M with: Sepsis Afebrile Hypoxia on BiPAP >> NRB mask >> venti mask>> NC Leukocytosis to 14, improving Lymphopenia 11/01 BCx NTD COVID PCR neg CXR: Elevated right hemidiaphragm. Possible right basilar airspace disease and right effusion. CTH: No acute process EtOH abuse Cirrhosis, Fatty liver Massive ascites Elevated AST to 48 Acute hep panel neg 11/01 CT A/P: CIRRHOSIS WITH LARGE AMOUNT OF ASCITES. SPLENIC GRANULOMAS. SLUDGE IN THE GALLBLADDER. SMALL RIGHT PLEURAL EFFUSION WITH COMPRESSIVE ATELECTASIS RIGHT LOWER LOBE. ELEVATED RIGHT HEMIDIAPHRAGM. 11/02 Paracentesis, 10.2L removed 838 RBC, 142 WBC, 2%PMN, 94%[place]'s Cx - NTD 11/26/20 - S/P paracentesis - not fluid no sent to the lab DAVIDE vs CKD, Cr 2.4, improving HIV screen neg EtOH abuse, stopped drinking in Sep 2020 Fatty liver DM2 HTN Plan: Monitor off abx as he is aseptic 11/11 SP Zosyn #10 11/03 SP vanco #2 Monitor CBC/CMP Monitor temp curve, hemodynamics Monitor resp status D/w RN Thank you for this consult. [facility] will continue to follow. Subjective Allergies: Coded Allergies: No Known Allergies (Unverified , 10/02/16) afebrile at 1l NC mild leukocytosis Objective Last 24 Hour Vital Signs Date Time Temp Pulse Resp B/P (MAP) Pulse Ox O2 Delivery O2 Flow Rate FiO2 12/02/20 04:00 97.8 99 16 126/87 (100) 97 12/02/20 00:00 97.5 94 15 120/76 (91) 97 12/01/20 20:34 Nasal Cannula 1.0 12/01/20 20:00 97.8 100 15 122/73 (89) 97 12/01/20 16:00 97.6 93 20 121/68 (85) 99 12/01/20 14:50 90 114/73 (87) Height (Feet): 6 Height (Inches): 1.00 Weight (Pounds): 200 Gen: NAD on 1L NC HEENT: NCAT, EOMI Pulm: BL chest rise Abd: Distended, soft, +fluid wave Ext: No c/c/e Neuro: Awake, interactive Laboratory Tests Test 12/01/20 16:58 12/02/20 05:00 12/02/20 11:48 POC Whole Blood Glucose 146 MG/DL (74-106) H 117 MG/DL (74-106) H White Blood Count 11.5 K/UL (4.8-10.8) H Red Blood Count 2.79 M/UL (4.70-6.10) L Hemoglobin 9.3 G/DL (14.2-18.0) L Hematocrit 29.2 % (42.0-52.0) L Mean Corpuscular Volume 105 FL (80-99) H Mean Corpuscular Hemoglobin 33.5 PG (27.0-31.0) H Mean Corpuscular Hemoglobin Concent 31.9 G/DL (32.0-36.0) L Red Cell Distribution Width 16.9 % (11.6-14.8) H Platelet Count 245 K/UL (150-450) Mean Platelet Volume 5.0 FL (6.5-10.1) L Neutrophils (%) (Auto) 79.1 % (45.0-75.0) H Lymphocytes (%) (Auto) 8.6 % (20.0-45.0) L Monocytes (%) (Auto) 10.1 % (1.0-10.0) H Eosinophils (%) (Auto) 1.2 % (0.0-3.0) Basophils (%) (Auto) 0.9 % (0.0-2.0) Sodium Level 137 MMOL/L (136-145) Potassium Level 4.0 MMOL/L (3.5-5.1) Chloride Level 99 MMOL/L (98-107) Carbon Dioxide Level 35 MMOL/L (21-32) H Anion Gap 3 mmol/L (5-15) L Blood Urea Nitrogen 16 mg/dL (7-18) Creatinine 1.0 MG/DL (0.55-1.30) Estimat Glomerular Filtration Rate > 60 mL/min (>60) Glucose Level 106 MG/DL (74-106) Uric Acid 4.0 MG/DL (2.6-7.2) Calcium Level 8.9 MG/DL (8.5-10.1) Phosphorus Level 4.1 MG/DL (2.5-4.9) Magnesium Level 2.0 MG/DL (1.8-2.4) Total Bilirubin 0.6 MG/DL (0.2-1.0) Aspartate Amino Transf (AST/SGOT) 37 U/L (15-37) Alanine Aminotransferase (ALT/SGPT) 19 U/L (12-78) Alkaline Phosphatase 141 U/L (46-116) H Total Protein 7.1 G/DL (6.4-8.2) Albumin 1.9 G/DL (3.4-5.0) L Globulin 5.2 g/dL Albumin/Globulin Ratio 0.4 (1.0-2.7) L Current Medications Medications (Trade) Dose Ordered Sig/Kylah Route PRN Reason Start Time Stop Time Status Last Admin Dose Admin Acetaminophen/ Hydrocodone Bitart ([place] 5/325) 1 tab Q6H PRN ORAL Severe Pain (Pain Scale 7-10) 12/01/20 21:00 12/08/20 20:59 12/02/20 05:26 Allopurinol (Zyloprim) 200 mg DAILY ORAL 11/04/20 15:00 12/04/20 14:59 12/02/20 09:48 Clobetasol Propionate (Temovate) 1 applic TWICE A DAY TOPIC 11/21/20 13:30 02/19/21 13:29 12/02/20 09:49 Dextrose (Dextrose 50%) 25 ml Q30M PRN IV Hypoglycemia 11/01/20 18:30 01/30/21 18:29 Dextrose (Dextrose 50%) 50 ml Q30M PRN IV Hypoglycemia 11/01/20 18:30 01/30/21 18:29 Folic Acid (Folate) 3 mg DAILY ORAL 11/03/20 13:15 12/03/20 13:14 12/02/20 09:46 Furosemide (Lasix) 40 mg DAILY ORAL 12/01/20 11:00 12/31/20 10:59 12/02/20 09:47 Insulin Aspart (NovoLOG) BEFORE MEALS AND HS SUBQ 11/01/20 21:00 01/30/21 20:59 12/01/20 17:00 Lactulose (Cephulac) 20 gm BID ORAL 11/20/20 09:00 12/20/20 08:59 12/02/20 09:46 Magnesium Oxide (Mag-Ox 400mg) 400 mg THREE TIMES A DAY ORAL 11/13/20 13:00 3/11/21 12:59 12/02/20 12:32 Midodrine (Pro-Amatine) 10 mg Q8HR ORAL 11/02/20 14:00 01/31/21 13:59 12/01/20 05:40 Pantoprazole (Protonix) 40 mg DAILY ORAL 11/14/20 09:00 12/14/20 08:59 12/02/20 09:47 Spironolactone (Aldactone) 100 mg DAILY ORAL 11/16/20 09:00 12/16/20 08:59 12/02/20 09:46 Vitamin D (Vitamin D) 5,000 unit DAILY ORAL 11/16/20 09:00 12/16/20 08:59 12/02/20 09:48 Jolie Tejada M.D. Dec 02, 2020 13:40
--- NOTE | 2020-12-02 15:06 | Internal Med Progress Note ---
Subjective Date of Service: Dec 02, 2020 Physician Name Jered Case Attending Physician Ramon Coombs MD Current Medications Medications (Trade) Dose Ordered Sig/Kylah Route PRN Reason Start Time Stop Time Status Last Admin Dose Admin Acetaminophen/ Hydrocodone Bitart ([place] 5/325) 1 tab Q6H PRN ORAL Severe Pain (Pain Scale 7-10) 12/01/20 21:00 12/08/20 20:59 12/02/20 05:26 Allopurinol (Zyloprim) 200 mg DAILY ORAL 11/04/20 15:00 12/04/20 14:59 12/02/20 09:48 Clobetasol Propionate (Temovate) 1 applic TWICE A DAY TOPIC 11/21/20 13:30 02/19/21 13:29 12/02/20 09:49 Dextrose (Dextrose 50%) 25 ml Q30M PRN IV Hypoglycemia 11/01/20 18:30 01/30/21 18:29 Dextrose (Dextrose 50%) 50 ml Q30M PRN IV Hypoglycemia 11/01/20 18:30 01/30/21 18:29 Folic Acid (Folate) 3 mg DAILY ORAL 11/03/20 13:15 12/03/20 13:14 12/02/20 09:46 Furosemide (Lasix) 40 mg DAILY ORAL 12/01/20 11:00 12/31/20 10:59 12/02/20 09:47 Insulin Aspart (NovoLOG) BEFORE MEALS AND HS SUBQ 11/01/20 21:00 01/30/21 20:59 12/01/20 17:00 Lactulose (Cephulac) 20 gm BID ORAL 11/20/20 09:00 12/20/20 08:59 12/02/20 09:46 Magnesium Oxide (Mag-Ox 400mg) 400 mg THREE TIMES A DAY ORAL 11/13/20 13:00 12/13/20 12:59 12/02/20 12:32 Midodrine (Pro-Amatine) 10 mg Q8HR ORAL 11/02/20 14:00 01/31/21 13:59 12/01/20 05:40 Pantoprazole (Protonix) 40 mg DAILY ORAL 11/14/20 09:00 12/14/20 08:59 12/02/20 09:47 Spironolactone (Aldactone) 100 mg DAILY ORAL 11/16/20 09:00 12/16/20 08:59 12/02/20 09:46 Vitamin D (Vitamin D) 5,000 unit DAILY ORAL 11/16/20 09:00 12/16/20 08:59 12/02/20 09:48 Allergies: Coded Allergies: No Known Allergies (Unverified , 10/02/16) ROS Limited/Unobtainable: No Constitutional: Reports: no symptoms HEENT: Reports: no symptoms Cardiovascular: Reports: no symptoms Respiratory: Reports: no symptoms Gastrointestinal/Abdominal: Reports: no symptoms Genitourinary: Reports: no symptoms Neurologic/Psychiatric: Reports: no symptoms Subjective 60 YO M with history of alcohol dependence admitted with shortness of breath. Now respiratroy failure. Cover for Int Med-DR Coombs. S/P paracentesis 11/02/20 and repeat on 11/26/20 Objective Last Vital Signs Date Time Temp Pulse Resp B/P (MAP) Pulse Ox O2 Delivery O2 Flow Rate FiO2 12/02/20 13:35 98 30 98 30 12/02/20 04:00 97.8 126/87 (100) 12/01/20 20:34 Nasal Cannula 1.0 Laboratory Tests Test 12/01/20 16:58 12/02/20 05:00 12/02/20 11:48 POC Whole Blood Glucose 146 MG/DL (74-106) H 117 MG/DL (74-106) H White Blood Count 11.5 K/UL (4.8-10.8) H Red Blood Count 2.79 M/UL (4.70-6.10) L Hemoglobin 9.3 G/DL (14.2-18.0) L Hematocrit 29.2 % (42.0-52.0) L Mean Corpuscular Volume 105 FL (80-99) H Mean Corpuscular Hemoglobin 33.5 PG (27.0-31.0) H Mean Corpuscular Hemoglobin Concent 31.9 G/DL (32.0-36.0) L Red Cell Distribution Width 16.9 % (11.6-14.8) H Platelet Count 245 K/UL (150-450) Mean Platelet Volume 5.0 FL (6.5-10.1) L Neutrophils (%) (Auto) 79.1 % (45.0-75.0) H Lymphocytes (%) (Auto) 8.6 % (20.0-45.0) L Monocytes (%) (Auto) 10.1 % (1.0-10.0) H Eosinophils (%) (Auto) 1.2 % (0.0-3.0) Basophils (%) (Auto) 0.9 % (0.0-2.0) Sodium Level 137 MMOL/L (136-145) Potassium Level 4.0 MMOL/L (3.5-5.1) Chloride Level 99 MMOL/L (98-107) Carbon Dioxide Level 35 MMOL/L (21-32) H Anion Gap 3 mmol/L (5-15) L Blood Urea Nitrogen 16 mg/dL (7-18) Creatinine 1.0 MG/DL (0.55-1.30) Estimat Glomerular Filtration Rate > 60 mL/min (>60) Glucose Level 106 MG/DL (74-106) Uric Acid 4.0 MG/DL (2.6-7.2) Calcium Level 8.9 MG/DL (8.5-10.1) Phosphorus Level 4.1 MG/DL (2.5-4.9) Magnesium Level 2.0 MG/DL (1.8-2.4) Total Bilirubin 0.6 MG/DL (0.2-1.0) Aspartate Amino Transf (AST/SGOT) 37 U/L (15-37) Alanine Aminotransferase (ALT/SGPT) 19 U/L (12-78) Alkaline Phosphatase 141 U/L (46-116) H Total Protein 7.1 G/DL (6.4-8.2) Albumin 1.9 G/DL (3.4-5.0) L Globulin 5.2 g/dL Albumin/Globulin Ratio 0.4 (1.0-2.7) L Intake and Output 12/01/20 12/02/20 19:00 07:00 Intake Total 920 ml 1000 ml Output Total 2000 ml 1300 ml Balance -1080 ml -300 ml Intake Oral 920 ml 1000 ml Output Urine Total 2000 ml 1300 ml # Voids 1 # Bowel Movements 3 Objective Objective General: No acute distress, awake and alert HEENT: NCAT, sclera anicteric, PERRL, EOMI. Neck: Supple, no significant jugular venous distention, Lungs: Nasal canula; Fair inspiratory effort, , no Wheeze or Rales. Heart: Regular rate and rhythm, normal S1/S2, no murmurs Abdomen: soft, nontender, +distended. positive fluid shift, bowel sound present. / Rectal: Refused and deferred. Extremities: No Cyanosis , clubbing or edema. Neuro: A&O x 3, Able to move all extremities Skin: warm, no rash Assessment/Plan Assessment/Plan Assessment/Plan Assessment/Plan Sepsis Acute Hypoxia on BiPAP >> NRB mask >> venturi mask>>nasal canula alcohol abuse Liver Cirrhosis, Fatty liver Massive ascites renal failure DM2 HTN Plan: ABX=S/P vanco and Zosyn High volume paracentesis, COVID PCR=Neg GI=Dr Encarnacion Nephrol=Dr Pozo S/P paracentesis 11/02/20 and repeat 11/26/20 ID=Dr Banks Discharge planning=residential facility Jered Case MD Dec 02, 2020 15:06
--- NOTE | 2020-12-02 19:25 | NUR ---
NURSE HAND-OFF: Important Events on Shift:SOB at rest, RT called/applied Bipap for about an hour, then back on O2 4LNC, [place] 5/325 mg x1 Patient Status: stable Diet: CCHO med Pending Orders: labs AM Pending Results/Labs:CBC BMP 12/03 Pending MD notification:none Latest Vital Signs: Temperature 98.0 , Pulse 105 , B/P 115 /86 , Respiratory Rate 20 , O2 SAT 99 , Bi-pap, O2 Flow Rate 3.0 . Vital Sign Comment: none Latest Childs Fall Score: 50 Fall Risk: High Risk Safety Measures: Call light Within Reach, Bed Alarm Zone 2, Side Rails Side Rails x3, Bed position Low and Locked. Fall Precautions: Yellow Socks Yellow Gown Door Sign Patient Fall Education Report given to CALDERON DIANE.
--- NOTE | 2020-12-02 19:46 | NUR ---
NURSE NOTES: Received patient awake, alert, verbal, resting in bed, comfortable.
--- NOTE | 2020-12-02 20:02 | General Progress Note ---
Subjective Allergies: Coded Allergies: No Known Allergies (Unverified , 10/02/16) Subjective above noted eating well still with some central abd pain after PO Objective Last 24 Hour Vital Signs Date Time Temp Pulse Resp B/P (MAP) Pulse Ox O2 Delivery O2 Flow Rate FiO2 12/02/20 19:53 98.4 102 20 110/72 (85) 96 12/02/20 16:00 98.0 105 20 115/86 (96) 99 12/02/20 13:35 98 30 98 30 12/02/20 12:00 97.7 94 22 106/62 (77) 98 12/02/20 09:00 Nasal Cannula 3.0 12/02/20 08:00 98.2 93 20 112/67 (82) 98 12/02/20 04:00 97.8 99 16 126/87 (100) 97 12/02/20 00:00 97.5 94 15 120/76 (91) 97 12/01/20 20:34 Nasal Cannula 1.0 Intake and Output 12/01/20 12/02/20 19:00 07:00 Intake Total 920 ml 1000 ml Output Total 2000 ml 1300 ml Balance -1080 ml -300 ml Intake Oral 920 ml 1000 ml Output Urine Total 2000 ml 1300 ml # Voids 1 # Bowel Movements 3 Laboratory Tests 12/02/20 05:00: White Blood Count 11.5H, Red Blood Count 2.79L, Hemoglobin 9.3L, Hematocrit 29.2L, Mean Corpuscular Volume 105H, Mean Corpuscular Hemoglobin 33.5H, Mean Corpuscular Hemoglobin Concent 31.9L, Red Cell Distribution Width 16.9H, Platelet Count 245, Mean Platelet Volume 5.0L, Neutrophils (%) (Auto) 79.1H, Lymphocytes (%) (Auto) 8.6L, Monocytes (%) (Auto) 10.1H, Eosinophils (%) (Auto) 1.2, Basophils (%) (Auto) 0.9, Sodium Level 137, Potassium Level 4.0, Chloride Level 99, Carbon Dioxide Level 35H, Anion Gap 3L, Blood Urea Nitrogen 16, Creatinine 1.0, Estimat Glomerular Filtration Rate > 60, Glucose Level 106, Uric Acid 4.0, Calcium Level 8.9, Phosphorus Level 4.1, Magnesium Level 2.0, Total Bilirubin 0.6, Aspartate Amino Transf (AST/SGOT) 37, Alanine Aminotransferase (ALT/SGPT) 19, Alkaline Phosphatase 141H, Total Protein 7.1, Albumin 1.9L, Globulin 5.2, Albumin/Globulin Ratio 0.4L 12/02/20 11:48: POC Whole Blood Glucose 117H Height (Feet): 6 Height (Inches): 1.00 Weight (Pounds): 200 Objective WDWN WM NCAT supple CTA RR abd soft,mildly distended no edema non focal Assessment/Plan Status: stable Assessment/Plan: Assessment/Plan Problem List: (1) Cirrhosis ICD Codes: K74.60 - Unspecified cirrhosis of liver SNOMED: 75920061 (2) Hepatic encephalopathy ICD Codes: K72.90 - Hepatic failure, unspecified without coma; R65.20 - Severe sepsis without septic shock SNOMED: 86349866 (3) Hypokalemia ICD Codes: E87.6 - Hypokalemia; R65.20 - Severe sepsis without septic shock SNOMED: 87599811 (4) Ascites ICD Codes: R18.8 - Other ascites SNOMED: 068298262 (5) Severe sepsis ICD Codes: A41.9 - Sepsis, unspecified organism; R65.20 - Severe sepsis without septic shock SNOMED: 24495552 (6) AMS (altered mental status) ICD Codes: R41.82 - Altered mental status, unspecified SNOMED: 312436701 Assessment/Plan: po as tolerated Elevate HOB lactulose PPI will consider EGD Igor Askew MD Dec 02, 2020 20:02
[2020-12-03] VITALS (7 sets, daily range): BP systolic 106–120; BP diastolic 71–78
[2020-12-03] MEDS: NovoLOG Insulin Flexpen SUBQ SCH ×4 (05:25→20:20)
[2020-12-03] MEDS: Midodrine 10mg tab ORAL SCH ×3 (05:25→20:20)
[2020-12-03] MEDS: HYDROcodone/Acetamin 5/325 tab ORAL PRN ×2 (06:05→12:13)
--- NOTE | 2020-12-03 06:29 | NUR ---
NURSE HAND-OFF: Important Events on Shift:[]Unremarkable Patient Status: [] Diet: [] Pending Orders: [] Pending Results/Labs:[] Pending MD notification:[] Latest Vital Signs: Temperature 98.6 , Pulse 100 , B/P 109 /71 , Respiratory Rate 20 , O2 SAT 96 , Bi-pap, O2 Flow Rate 3.0 . Vital Sign Comment: [] Latest Childs Fall Score: 50 Fall Risk: High Risk Safety Measures: Call light Within Reach, Bed Alarm Zone 2, Side Rails Side Rails x3, Bed position Low and Locked. Fall Precautions: Yellow Socks Yellow Gown Door Sign Patient Fall Education Report given to [].
[2020-12-03 07:58] LABS: BASOPHILS % (AUTO) 1.2 % (0.0-2.0); EOSINOPHILS % (AUTO) 1.1 % (0.0-3.0); HEMATOCRIT 27.8 % (42.0-52.0); HEMOGLOBIN 9.1 G/DL (14.2-18.0); LYMPHOCYTES % (AUTO) 8.7 % (20.0-45.0); MEAN CORPUSCULAR VOLUME 104 FL (80-99); MONOCYTES % (AUTO) 10.9 % (1.0-10.0); NEUTROPHILS % (AUTO) 78.1 % (45.0-75.0); PLATELET COUNT 263 K/UL (150-450); RED BLOOD COUNT 2.68 M/UL (4.70-6.10); RED CELL DISTRIBUTION WIDTH 17.2 % (11.6-14.8); WHITE BLOOD COUNT 10.8 K/UL (4.8-10.8)
--- NOTE | 2020-12-03 07:58 | NUR ---
NURSE NOTES: Patient alert x4; on room air, Bi-Pap at the bed side; NO IV access MD aware; Condom Cath in place; side rails up x2, breaks engaged, bed at lowest position; call light within reach; will keep monitoring.
--- NOTE | 2020-12-03 07:59 | General Progress Note ---
Subjective ROS Limited/Unobtainable: No Allergies: Coded Allergies: No Known Allergies (Unverified , 10/02/16) Objective Last 24 Hour Vital Signs Date Time Temp Pulse Resp B/P (MAP) Pulse Ox O2 Delivery O2 Flow Rate FiO2 12/03/20 06:28 98.6 12/03/20 04:00 98.6 100 20 109/71 (84) 96 12/03/20 00:30 96 28 97 30 12/03/20 00:00 98.6 98 18 118/74 (89) 96 12/02/20 23:12 95 Room Air 21 12/02/20 20:09 Nasal Cannula 3.0 12/02/20 19:53 98.4 102 20 110/72 (85) 96 12/02/20 16:00 98.0 105 20 115/86 (96) 99 12/02/20 13:35 98 30 98 30 12/02/20 12:00 97.7 94 22 106/62 (77) 98 12/02/20 09:00 Nasal Cannula 3.0 12/02/20 08:00 98.2 93 20 112/67 (82) 98 Intake and Output 12/02/20 12/03/20 19:00 07:00 Intake Total 1440 ml 480 ml Output Total 2375 ml 1000 ml Balance -935 ml -520 ml Intake Oral 1440 ml 480 ml Output Urine Total 2375 ml 1000 ml # Voids 1 # Bowel Movements 2 2 Laboratory Tests 12/02/20 11:48: POC Whole Blood Glucose 117H 12/03/20 05:24: POC Whole Blood Glucose 102 12/03/20 06:35: White Blood Count [Pending], Red Blood Count [Pending], Hemoglobin [Pending], Hematocrit [Pending], Mean Corpuscular Volume [Pending], Mean Corpuscular Hem oglobin [Pending], Mean Corpuscular Hemoglobin Concent [Pending], Red Cell Distribution Width [Pending], Platelet Count [Pending], Mean Platelet Volume [Pending], Neutrophils (%) (Auto) [Pending], Lymphocytes (%) (Auto) [Pending], Monocytes (%) (Auto) [Pending], Eosinophils (%) (Auto) [Pending], Basophils (%) (Auto) [Pending], Sodium Level [Pending], Potassium Level [Pending], Chloride Level [Pending], Carbon Dioxide Level [Pending], Blood Urea Nitrogen [Pending], Creatinine [Pending], Estimat Glomerular Filtration Rate [Pending], Glucose Level [Pending], Calcium Level [Pending] Height (Feet): 6 Height (Inches): 1.00 Weight (Pounds): 200 General Appearance: no apparent distress EENT: normal ENT inspection Neck: normal alignment, supple Cardiovascular: normal rate Respiratory/Chest: decreased breath sounds Abdomen: hypoactive bowel sounds Extremities: non-tender Assessment/Plan Problem List: (1) Cirrhosis ICD Codes: K74.60 - Unspecified cirrhosis of liver SNOMED: 15250530 (2) Hepatic encephalopathy ICD Codes: K72.90 - Hepatic failure, unspecified without coma; R65.20 - Severe sepsis without septic shock SNOMED: 68378683 (3) Hypokalemia ICD Codes: E87.6 - Hypokalemia; R65.20 - Severe sepsis without septic shock SNOMED: 87917946 (4) Ascites ICD Codes: R18.8 - Other ascites SNOMED: 138388917 (5) Severe sepsis ICD Codes: A41.9 - Sepsis, unspecified organism; R65.20 - Severe sepsis without septic shock SNOMED: 08823629 (6) AMS (altered mental status) ICD Codes: R41.82 - Altered mental status, unspecified SNOMED: 151662003 Status: stable Assessment/Plan: Assessment/Plan Problem List: (1) Cirrhosis ICD Codes: K74.60 - Unspecified cirrhosis of liver SNOMED: (2) Hepatic encephalopathy ICD Codes: K72.90 - Hepatic failure, unspecified without coma; R65.20 - Severe sepsis without septic shock SNOMED: 31640858 (3) Hypokalemia ICD Codes: E87.6 - Hypokalemia; R65.20 - Severe sepsis without septic shock SNOMED: 84928644 (4) Ascites ICD Codes: R18.8 - Other ascites SNOMED: 509359019 (5) Severe sepsis ICD Codes: A41.9 - Sepsis, unspecified organism; R65.20 - Severe sepsis without septic shock SNOMED: 24527628 (6) AMS (altered mental status) ICD Codes: R41.82 - Altered mental status, unspecified SNOMED: 059471385 Assessment/Plan: lactulose PPI f/u ammonia level fu hepatitis panel>>> neg s/p repeat paracentesis x4 lasix aldactone repeat labs may need EGd Mejia Encarnacion MD Dec 03, 2020 07:59
[2020-12-03 08:00] LABS: ANION GAP 2 mmol/L (5-15); BLOOD UREA NITROGEN 17 mg/dL (7-18); CALCIUM 9.4 MG/DL (8.5-10.1); CARBON DIOXIDE 36 MMOL/L (21-32); CHLORIDE 97 MMOL/L (98-107); CREATININE 0.9 MG/DL (0.55-1.30); SODIUM 135 MMOL/L (136-145)
--- NOTE | 2020-12-03 08:14 | Diagnostic Imaging Report ---
Indications: Recurrent tense ascites, abdominal pain Technique: Ultrasound used to localize optimal puncture site. Sterile prepping and draping right lower quadrant including use of sterile subacromial and sterile ultrasound. Local anesthesia with 1% lidocaine. Under real-time ultrasound guidance, puncture peritoneal space using paracentesis needle. Stylet removed. Catheter placed to vacuum bottle suction. Total 7 liters of fluid aspirated. Patient tolerated procedure well, without immediate complication. Findings: Followup sonography demonstrates resolution of peritoneal fluid. IMPRESSION: Successful ultrasound-guided paracentesis, yielding 7 liters of fluid
--- NOTE | 2020-12-03 09:05 | Infectious Diseases Prog Note ---
Assessment/Plan 60yo M with: Sepsis Afebrile Hypoxia on BiPAP >> NRB mask >> venti mask>> NC Leukocytosis to 14, improving Lymphopenia 11/01 BCx NTD COVID PCR neg CXR: Elevated right hemidiaphragm. Possible right basilar airspace disease and right effusion. CTH: No acute process EtOH abuse Cirrhosis, Fatty liver Massive ascites Elevated AST to 48 Acute hep panel neg 11/01 CT A/P: CIRRHOSIS WITH LARGE AMOUNT OF ASCITES. SPLENIC GRANULOMAS. SLUDGE IN THE GALLBLADDER. SMALL RIGHT PLEURAL EFFUSION WITH COMPRESSIVE ATELECTASIS RIGHT LOWER LOBE. ELEVATED RIGHT HEMIDIAPHRAGM. 11/02 Paracentesis, 10.2L removed 838 RBC, 142 WBC, 2%PMN, 94%Ray's Cx - NTD 11/26/20 - S/P paracentesis - not fluid no sent to the lab DAVIDE vs CKD, Cr 2.4, improving HIV screen neg EtOH abuse, stopped drinking in Sep 2020 Fatty liver DM2 HTN Plan: Monitor off abx 11/11 SP Zosyn #10 11/03 SP vanco #2 Monitor CBC/CMP Monitor temp curve, hemodynamics Monitor resp status D/w RN Thank you for this consult. [facility] will continue to follow. Subjective Allergies: Coded Allergies: No Known Allergies (Unverified , 10/02/16) Afebrile No Leukocytosis [facility] Objective Last 24 Hour Vital Signs Date Time Temp Pulse Resp B/P (MAP) Pulse Ox O2 Delivery O2 Flow Rate FiO2 12/03/20 08:00 97.9 100 20 117/78 (91) 96 12/03/20 08:00 96 Room Air 12/03/20 06:28 98.6 12/03/20 04:00 98.6 100 20 109/71 (84) 96 12/03/20 00:30 96 28 97 30 12/03/20 00:00 98.6 98 18 118/74 (89) 96 12/02/20 23:12 95 Room Air 12/02/20 20:09 Nasal Cannula 3.0 12/02/20 19:53 98.4 102 20 110/72 (85) 96 12/02/20 16:00 98.0 105 20 115/86 (96) 99 12/02/20 13:35 98 30 98 30 12/02/20 12:00 97.7 94 22 106/62 (77) 98 Height (Feet): 6 Height (Inches): 1.00 Weight (Pounds): 200 Gen: NAD HEENT: NCAT, EOMI Pulm: BL chest rise Abd: Distended, soft, +fluid wave Ext: No c/c/e Neuro: Awake, interactive Laboratory Tests Test 12/02/20 11:48 12/03/20 05:24 12/03/20 06:35 POC Whole Blood Glucose 117 MG/DL (74-106) H 102 MG/DL (74-106) White Blood Count 10.8 K/UL (4.8-10.8) Red Blood Count 2.68 M/UL (4.70-6.10) L Hemoglobin 9.1 G/DL (14.2-18.0) L Hematocrit 27.8 % (42.0-52.0) L Mean Corpuscular Volume 104 FL (80-99) H Mean Corpuscular Hemoglobin 33.8 PG (27.0-31.0) H Mean Corpuscular Hemoglobin Concent 32.7 G/DL (32.0-36.0) Red Cell Distribution Width 17.2 % (11.6-14.8) H Platelet Count 263 K/UL (150-450) Mean Platelet Volume 5.0 FL (6.5-10.1) L Neutrophils (%) (Auto) 78.1 % (45.0-75.0) H Lymphocytes (%) (Auto) 8.7 % (20.0-45.0) L Monocytes (%) (Auto) 10.9 % (1.0-10.0) H Eosinophils (%) (Auto) 1.1 % (0.0-3.0) Basophils (%) (Auto) 1.2 % (0.0-2.0) Sodium Level 135 MMOL/L (136-145) L Potassium Level 4.0 MMOL/L (3.5-5.1) Chloride Level 97 MMOL/L (98-107) L Carbon Dioxide Level 36 MMOL/L (21-32) H Anion Gap 2 mmol/L (5-15) L Blood Urea Nitrogen 17 mg/dL (7-18) Creatinine 0.9 MG/DL (0.55-1.30) Estimat Glomerular Filtration Rate > 60 mL/min (>60) Glucose Level 101 MG/DL (74-106) Calcium Level 9.4 MG/DL (8.5-10.1) Current Medications Medications (Trade) Dose Ordered Sig/Kylah Route PRN Reason Start Time Stop Time Status Last Admin Dose Admin Acetaminophen/ Hydrocodone Bitart ([place] 5/325) 1 tab Q6H PRN ORAL Severe Pain (Pain Scale 7-10) 12/01/20 21:00 12/08/20 20:59 12/03/20 06:05 Allopurinol (Zyloprim) 200 mg DAILY ORAL 11/04/20 15:00 12/04/20 14:59 12/02/20 09:48 Clobetasol Propionate (Temovate) 1 applic TWICE A DAY TOPIC 11/21/20 13:30 02/19/21 13:29 12/02/20 17:40 Dextrose (Dextrose 50%) 25 ml Q30M PRN IV Hypoglycemia 11/01/20 18:30 01/30/21 18:29 Dextrose (Dextrose 50%) 50 ml Q30M PRN IV Hypoglycemia 11/01/20 18:30 01/30/21 18:29 Folic Acid (Folate) 3 mg DAILY ORAL 11/03/20 13:15 12/03/20 13:14 12/02/20 09:46 Furosemide (Lasix) 40 mg DAILY ORAL 12/01/20 11:00 12/31/20 10:59 12/02/20 09:47 Insulin Aspart (NovoLOG) BEFORE MEALS AND HS SUBQ 11/01/20 21:00 01/30/21 20:59 12/01/20 17:00 Lactulose (Cephulac) 20 gm BID ORAL 11/20/20 09:00 12/20/20 08:59 12/02/20 17:39 Magnesium Oxide (Mag-Ox 400mg) 400 mg THREE TIMES A DAY ORAL 11/13/20 13:00 12/13/20 12:59 12/02/20 17:40 Midodrine (Pro-Amatine) 10 mg Q8HR ORAL 11/02/20 14:00 01/31/21 13:59 12/01/20 05:40 Pantoprazole (Protonix) 40 mg DAILY ORAL 11/14/20 09:00 12/14/20 08:59 12/02/20 09:47 Spironolactone (Aldactone) 100 mg DAILY ORAL 11/16/20 09:00 12/16/20 08:59 12/02/20 09:46 Vitamin D (Vitamin D) 5,000 unit DAILY ORAL 11/16/20 09:00 12/16/20 08:59 12/02/20 09:48 Nazario Banks MD Dec 03, 2020 09:05
[2020-12-03] MEDS: Furosemide 40mg tab ORAL SCH (09:06)
[2020-12-03] MEDS: Lactulose 20gm/30ml UDC ORAL SCH ×2 (09:06→17:16)
[2020-12-03] MEDS: Magnesium Oxide 400mg tab ORAL SCH ×3 (09:07→17:16)
[2020-12-03] MEDS: Vitamin D 1000 units Tab ORAL SCH (09:07)
[2020-12-03] MEDS: CLOBETASOL 0.05% TOPIC SCH ×2 (09:08→17:16)
[2020-12-03] MEDS: Spironolactone 50mg tab ORAL SCH (09:50)
[2020-12-03] MEDS: Allopurinol 100mg Tab ORAL SCH (09:50)
--- NOTE | 2020-12-03 10:42 | Nephrology Progress Note ---
Assessment/Plan Problem List: (1) Renal failure (ARF), acute on chronic (2) Electrolyte imbalance (3) Hypokalemia (4) Cirrhosis (5) DMII (diabetes mellitus, type 2) (6) Anemia (7) HTN (hypertension) Assessment Renal failure most likely acute on chronic Electrolyte imbalances, hypokalemia Sepsis Hepatic encephalopathy, ascites, fatty liver Anemia History of EtOH abuse, history of tobacco abuse, history of drug abuse Diabetes mellitus type 2 Hypertension Lymphopenia, leukocytosis, hypoxia Plan December 03: Labs reviewed. Renal parameters stable. Patient full code. Stable for discharge from renal standpoint of view. Continue per consultants. December 02: Labs reviewed. Renal parameters and electrolytes stable. Patient remains full code. Continue per consultants. December 01: No CHEM panel drawn today. Status quo. Full code. Medication list reviewed. Check lab tomorrow. Overall stable from renal standpoint of view. November 30: Labs reviewed. Renal parameters unchanged. Continue per GI. Not much to add from renal standpoint of view. November 29: Labs reviewed. Serum sodium 134 unchanged. Renal parameters are stable. Continue per GI. November 28: Labs reviewed. Renal parameters stable. Serum sodium 134. Continue per GI. November 27: Labs reviewed. Renal parameters stable. Continue per consultants. November 25: No CHEM panel drawn today. Patient clinically appears to be stable. Will continue to monitor electrolytes and renal parameters while in- house. Per orders. November 24: Labs reviewed. Renal parameters stable. Continues to have ascites requiring periodic Paracentesis. Not much to add from renal standpoint to view. Medication list reviewed. November 23: No CHEM panel drawn today. Clinically stable. Meds reviewed. Continue per current regimen. Check lab tomorrow. November 22: Labs reviewed. Electrolytes reasonably well-maintained. Continue per current treatment plan. November 21: Labs reviewed. Abnormal electrolytes addressed. Neutra-Phos discontinued. Continue per current management. November 20: Labs reviewed. Renal parameters stable. Massive ascites and GI discomfort persists. Medication list reviewed. November 19: Labs reviewed. Serum sodium 133. Normal saline 500 cc bolus given. Continue per consultants. November 18: Labs reviewed. Abnormal electrolytes addressed. Continue per consultants November 17: Labs reviewed. Renal parameters stable. Medication list reviewed. On Lasix and Aldactone. We will continue to monitor blood chemistries and electrolytes. November 16: Labs reviewed. Electrolytes within normal limit now. Continue her current management. November 15: Labs reviewed. Low magnesium addressed. Continue per current management. November 14: Labs reviewed. Renal parameters are stable continue per current management. Vitamin D supplement given. November 13: Labs reviewed. Normal renal parameters. Abnormal electrolytes noted and addressed. Vitamin D level results still pending November 12: Labs reviewed. Serum creatinine now within normal limits. Much improved from renal standpoint of view. November 11: Labs reviewed. Serum creatinine 1.6. Stable from renal standpoint reviewed. November 10: Labs reviewed. Serum creatinine lowered to 1.9. Continue to monitor renal parameters. Magnesium supplement ordered. November 09: No CHEM panel drawn today. Will DC Hernandez due to pain in the urethra. We will continue to monitor renal parameters. Continue per consultants. November 08: Labs reviewed. Serum creatinine 2.3 unchanged. Electrolytes within normal limit. Continue per consultants. November 07: Labs reviewed. Serum creatinine down to 2.3. Continue to monitor electrolytes. Low magnesium addressed. November 06: Labs reviewed. Serum creatinine 2.5 unchanged. Continue per consultants. November 05: Labs reviewed. Serum creatinine plateauing. Status quo. Elect rolyte acceptable. Now on oxygen by cannula. Continue per consultants. November 04 labs reviewed. Patient full code. On Venturi mask. Low potassium addressed. Serum creatinine rising. Continue to monitor renal parameters. Allopurinol initiated November 03: Labs reviewed. Medication list reviewed. Abnormal electrolyte addressed. Continue monitor renal parameters. Continue per consultants. Previously: Trial of 3% saline and albumin bolus Potassium supplement Monitor renal parameters, ammonia, electrolytes ordered Subjective ROS Limited/Unobtainable: No Constitutional: Reports: malaise, weakness Objective Objective Last 24 Hour Vital Signs Date Time Temp Pulse Resp B/P (MAP) Pulse Ox O2 Delivery O2 Flow Rate FiO2 12/03/20 09:00 Nasal Cannula 3.0 12/03/20 08:00 97.9 100 20 117/78 (91) 96 12/03/20 08:00 96 Room Air 21 12/03/20 06:28 98.6 12/03/20 04:00 98.6 100 20 109/71 (84) 96 12/03/20 00:30 96 28 97 30 12/03/20 00:00 98.6 98 18 118/74 (89) 96 12/02/20 23:12 95 Room Air 21 12/02/20 20:09 Nasal Cannula 3.0 12/02/20 19:53 98.4 102 20 110/72 (85) 96 12/02/20 16:00 98.0 105 20 115/86 (96) 99 12/02/20 13:35 98 30 98 30 12/02/20 12:00 97.7 94 22 106/62 (77) 98 Intake and Output 12/02/20 12/03/20 19:00 07:00 Intake Total 1440 ml 480 ml Output Total 2375 ml 1000 ml Balance -935 ml -520 ml Intake Oral 1440 ml 480 ml Output Urine Total 2375 ml 1000 ml # Voids 1 # Bowel Movements 2 2 Current Medications Medications (Trade) Dose Ordered Sig/Kylah Route PRN Reason Start Time Stop Time Status Last Admin Dose Admin Acetaminophen/ Hydrocodone Bitart ([place] 5/325) 1 tab Q6H PRN ORAL Severe Pain (Pain Scale 7-10) 12/01/20 21:00 12/08/20 20:59 12/03/20 06:05 Allopurinol (Zyloprim) 200 mg DAILY ORAL 11/04/20 15:00 12/04/20 14:59 12/03/20 09:50 Clobetasol Propionate (Temovate) 1 applic TWICE A DAY TOPIC 11/21/20 13:30 02/19/21 13:29 12/03/20 09:08 Dextrose (Dextrose 50%) 25 ml Q30M PRN IV Hypoglycemia 11/01/20 18:30 01/30/21 18:29 Dextrose (Dextrose 50%) 50 ml Q30M PRN IV Hypoglycemia 11/01/20 18:30 01/30/21 18:29 Folic Acid (Folate) 3 mg DAILY ORAL 11/03/20 13:15 12/03/20 13:14 12/03/20 09:07 Furosemide (Lasix) 40 mg DAILY ORAL 12/01/20 11:00 12/31/20 10:59 12/03/20 09:06 Insulin Aspart (NovoLOG) BEFORE MEALS AND HS SUBQ 11/01/20 21:00 01/30/21 20:59 12/01/20 17:00 Lactulose (Cephulac) 20 gm BID ORAL 11/20/20 09:00 12/20/20 08:59 12/03/20 09:06 Magnesium Oxide (Mag-Ox 400mg) 400 mg THREE TIMES A DAY ORAL 11/13/20 13:00 12/13/20 12:59 12/03/20 09:07 Midodrine (Pro-Amatine) 10 mg Q8HR ORAL 11/02/20 14:00 01/31/21 13:59 12/01/20 05:40 Pantoprazole (Protonix) 40 mg DAILY ORAL 11/14/20 09:00 12/14/20 08:59 12/03/20 09:07 Spironolactone (Aldactone) 100 mg DAILY ORAL 12/04/20 09:00 12/16/20 08:59 Vitamin D (Vitamin D) 5,000 unit DAILY ORAL 11/16/20 09:00 12/16/20 08:59 12/03/20 09:07 Laboratory Tests 12/02/20 11:48: POC Whole Blood Glucose 117H 12/03/20 05:24: POC Whole Blood Glucose 102 12/03/20 06:35: White Blood Count 10.8, Red Blood Count 2.68L, Hemoglobin 9.1L, Hematocrit 27.8L , Mean Corpuscular Volume 104H, Mean Corpuscular Hemoglobin 33.8H, Mean Corpuscular Hemoglobin Concent 32.7, Red Cell Distribution Width 17.2H, Platelet Count 263, Mean Platelet Volume 5.0L, Neutrophils (%) (Auto) 78.1H, Lymphocytes (%) (Auto) 8.7L, Monocytes (%) (Auto) 10.9H, Eosinophils (%) (Auto) 1.1, Basophils (%) (Auto) 1.2, Sodium Level 135L, Potassium Level 4.0, Chloride Level 97L, Carbon Dioxide Level 36H, Anion Gap 2L, Blood Urea Nitrogen 17, Creatinine 0.9, Estimat Glomerular Filtration Rate > 60, Glucose Level 101, Calcium Level 9.4 Height (Feet): 6 Height (Inches): 1.00 Weight (Pounds): 200 General Appearance: no apparent distress, lethargic Cardiovascular: tachycardia Respiratory/Chest: decreased breath sounds Abdomen: distended Kalin Pozo MD Dec 03, 2020 10:42
--- NOTE | 2020-12-03 12:14 | Surgery Progress Note ---
Surgery Progress Note Subjective Symptoms: improved, tolerating diet, passing flatus, BM Objective Last 24 Hour Vital Signs Date Time Temp Pulse Resp B/P (MAP) Pulse Ox O2 Delivery O2 Flow Rate FiO2 12/03/20 09:00 Nasal Cannula 3.0 12/03/20 08:00 97.9 100 20 117/78 (91) 96 12/03/20 08:00 96 Room Air 21 12/03/20 06:28 98.6 12/03/20 04:00 98.6 100 20 109/71 (84) 96 12/03/20 00:30 96 28 97 30 12/03/20 00:00 98.6 98 18 118/74 (89) 96 12/02/20 23:12 95 Room Air 21 12/02/20 20:09 Nasal Cannula 3.0 12/02/20 19:53 98.4 102 20 110/72 (85) 96 12/02/20 16:00 98.0 105 20 115/86 (96) 99 12/02/20 13:35 98 30 98 30 I&O Intake and Output 12/02/20 12/03/20 19:00 07:00 Intake Total 1440 ml 480 ml Output Total 2375 ml 1000 ml Balance -935 ml -520 ml Intake Oral 1440 ml 480 ml Output Urine Total 2375 ml 1000 ml # Voids 1 # Bowel Movements 2 2 Dressing: dry Cardiovascular: RSR Respiratory: clear Abdomen: soft, non-tender, present bowel sounds, non-distended Extremities: no tenderness, no cyanosis Laboratory Tests Test 12/03/20 05:24 12/03/20 06:35 POC Whole Blood Glucose 102 MG/DL (74-106) White Blood Count 10.8 K/UL (4.8-10.8) Red Blood Count 2.68 M/UL (4.70-6.10) L Hemoglobin 9.1 G/DL (14.2-18.0) L Hematocrit 27.8 % (42.0-52.0) L Mean Corpuscular Volume 104 FL (80-99) H Mean Corpuscular Hemoglobin 33.8 PG (27.0-31.0) H Mean Corpuscular Hemoglobin Concent 32.7 G/DL (32.0-36.0) Red Cell Distribution Width 17.2 % (11.6-14.8) H Platelet Count 263 K/UL (150-450) Mean Platelet Volume 5.0 FL (6.5-10.1) L Neutrophils (%) (Auto) 78.1 % (45.0-75.0) H Lymphocytes (%) (Auto) 8.7 % (20.0-45.0) L Monocytes (%) (Auto) 10.9 % (1.0-10.0) H Eosinophils (%) (Auto) 1.1 % (0.0-3.0) Basophils (%) (Auto) 1.2 % (0.0-2.0) Sodium Level 135 MMOL/L (136-145) L Potassium Level 4.0 MMOL/L (3.5-5.1) Chloride Level 97 MMOL/L (98-107) L Carbon Dioxide Level 36 MMOL/L (21-32) H Anion Gap 2 mmol/L (5-15) L Blood Urea Nitrogen 17 mg/dL (7-18) Creatinine 0.9 MG/DL (0.55-1.30) Estimat Glomerular Filtration Rate > 60 mL/min (>60) Glucose Level 101 MG/DL (74-106) Calcium Level 9.4 MG/DL (8.5-10.1) Plan Problems: (1) Deep tissue injury Assessment & Plan: Pt presented on admission with DTPI Thoracic Spine(L)1.8cm x (W)1cm. Base of Pressure Injury is purpuric with surrounding non-blanchable erythema. Pt complained of tenderness at site. Non-Blanchable erythema without induration noted to Sacrum,R and L Gluteal cheeks including Bilat Ischial tuberosities. Rocker bottom foot noted to Both R and L feet. Both heels are callused,dry and easily blanchable. Tx.Plan: Apply Cavilon Skin Barrier To Thoracic DTPI. Cover with Optifoam drsg. Change every 3 days and prn. Apply Moisture Barrier Paste to Sacrum. Cover with Optifoam drsg. Change every 3 days and prn. Apply Cavilon Skin Barrier to R and L gluteal cheeks and Bilat Ischial tuberosities with each Incontinence care. Reposition at least every 2Hours or as tolerated. Off-load heels with pillow. (2) Hepatic encephalopathy (3) Hypokalemia (4) Ascites (5) Severe sepsis (6) Cirrhosis Assessment & Plan: distended again may need repeat para gi input There is compressive atelectasis right lower lobe. Small right effusion noted. Right hemidiaphragm is elevated. There is a large amount of ascites. Slight nodularity of the hepatic contour noted suggestive of underlying cirrhotic changes. Spleen contains some scattered granulomas. Gallbladder is isodense to liver likely containing tumefactive sludge. The pancreas is unremarkable. Adrenals are normal in morphology. The kidneys are normal in size, shape and axis. Small bowel loops are nondistended. The colon is also nondistended with average amount of stool. The appendix is not visualized. There is no free air. No pathologic adenopathy demonstrated. Urinary bladder appears unremarkable. Degenerative changes of the lumbar spine noted. IMPRESSION: CIRRHOSIS WITH LARGE AMOUNT OF ASCITES. SPLENIC GRANULOMAS. SLUDGE IN THE GALLBLADDER. SMALL RIGHT PLEURAL EFFUSION WITH COMPRESSIVE ATELECTASIS RIGHT LOWER LOBE. ELEVATED RIGHT HEMIDIAPHRAGM. (7) AMS (altered mental status) (8) Electrolyte imbalance (9) Renal failure (ARF), acute on chronic (10) Anemia (11) HTN (hypertension) (12) DMII (diabetes mellitus, type 2) Theodore Alves Dec 03, 2020 12:14
--- NOTE | 2020-12-03 12:56 | NUR ---
RD ASSESSMENT & RECOMMENDATIONS SEE CARE ACTIVITY FOR COMPLETE ASSESSMENT DAILY ESTIMATED NEEDS: Needs based on Liver, DM 85.1 25-30 kcals/kg [id number] total kcals 1.25-1.5 g protein/kg 106-128 g total protein Fluid per MD NUTRITION DIAGNOSIS: Decreased sodium and fat needs r/t liver cirrhosis as evidenced by s/p paracentesis 10.2L removed, elevated T bili-> wnl and LFT's, ammonia elevated on adm, now wnl. CURRENT DIET: [facility] MED PO DIET RECOMMENDATIONS: Low Fat/ Low Sodium (textures as tolerated) ADDITIONAL RECOMMENDATIONS: 1) With BG >150, rec added [facility] MED diet 2) Obtain a calibrated bed scale wt 3) Monitor lytes and hydration status closely w/ diuretics 4) AM snacks daily per pt request 5) Skin integrity-> add TERRENCE BID, MVI x1
--- NOTE | 2020-12-03 19:01 | NUR ---
NURSE HAND-OFF: Important Events on Shift: Unremarkable Patient Status: Diet: Pending Orders: Pending Results/Labs: Pending MD notification: Latest Vital Signs: Temperature 98.0 , Pulse 95 , B/P 120 /78 , Respiratory Rate 20 , O2 SAT 97 , Bi-pap, O2 Flow Rate 3.0 . Vital Sign Comment: Latest Childs Fall Score: 50 Fall Risk: High Risk Safety Measures: Call light Within Reach, Bed Alarm Zone 2, Side Rails Side Rails x3, Bed position Low and Locked. Fall Precautions: Yellow Socks Yellow Gown Door Sign Patient Fall Education Report given to .
--- NOTE | 2020-12-03 19:24 | Internal Med Progress Note ---
Subjective Date of Service: Dec 03, 2020 Physician Name Jered Case Attending Physician Ramon Coombs MD Current Medications Medications (Trade) Dose Ordered Sig/Kylah Route PRN Reason Start Time Stop Time Status Last Admin Dose Admin Acetaminophen/ Hydrocodone Bitart ([place] 5/325) 1 tab Q6H PRN ORAL Severe Pain (Pain Scale 7-10) 12/01/20 21:00 12/08/20 20:59 12/03/20 12:13 Allopurinol (Zyloprim) 200 mg DAILY ORAL 11/04/20 15:00 12/04/20 14:59 12/03/20 09:50 Clobetasol Propionate (Temovate) 1 applic TWICE A DAY TOPIC 11/21/20 13:30 02/19/21 13:29 12/03/20 17:16 Dextrose (Dextrose 50%) 25 ml Q30M PRN IV Hypoglycemia 11/01/20 18:30 01/30/21 18:29 Dextrose (Dextrose 50%) 50 ml Q30M PRN IV Hypoglycemia 11/01/20 18:30 01/30/21 18:29 Furosemide (Lasix) 40 mg DAILY ORAL 12/01/20 11:00 12/31/20 10:59 12/03/20 09:06 Insulin Aspart (NovoLOG) BEFORE MEALS AND HS SUBQ 11/01/20 21:00 01/30/21 20:59 12/01/20 17:00 Lactulose (Cephulac) 20 gm BID ORAL 11/20/20 09:00 12/20/20 08:59 12/03/20 17:16 Magnesium Oxide (Mag-Ox 400mg) 400 mg THREE TIMES A DAY ORAL 11/13/20 13:00 12/13/20 12:59 12/03/20 17:16 Midodrine (Pro-Amatine) 10 mg Q8HR ORAL 11/02/20 14:00 01/31/21 13:59 12/03/20 13:08 Pantoprazole (Protonix) 40 mg DAILY ORAL 11/14/20 09:00 12/14/20 08:59 12/03/20 09:07 Spironolactone (Aldactone) 100 mg DAILY ORAL 12/04/20 09:00 12/16/20 08:59 Vitamin D (Vitamin D) 5,000 unit DAILY ORAL 11/16/20 09:00 12/16/20 08:59 12/03/20 09:07 Allergies: Coded Allergies: No Known Allergies (Unverified , 10/02/16) ROS Limited/Unobtainable: No Constitutional: Reports: no symptoms HEENT: Reports: no symptoms Cardiovascular: Reports: no symptoms Respiratory: Reports: no symptoms Gastrointestinal/Abdominal: Reports: no symptoms Genitourinary: Reports: no symptoms Neurologic/Psychiatric: Reports: no symptoms Subjective 60 YO M with history of alcohol dependence admitted with shortness of breath. Now respiratroy failure. Cover for Int Med-DR Coombs. S/P paracentesis 11/02/20 and repeat on 11/26/20 Objective Last Vital Signs Date Time Temp Pulse Resp B/P (MAP) Pulse Ox O2 Delivery O2 Flow Rate FiO2 12/03/20 16:00 98.0 95 20 120/78 (92) 97 12/03/20 09:00 Nasal Cannula 3.0 12/03/20 08:00 21 Laboratory Tests Test 12/03/20 05:24 12/03/20 06:35 POC Whole Blood Glucose 102 MG/DL (74-106) White Blood Count 10.8 K/UL (4.8-10.8) Red Blood Count 2.68 M/UL (4.70-6.10) L Hemoglobin 9.1 G/DL (14.2-18.0) L Hematocrit 27.8 % (42.0-52.0) L Mean Corpuscular Volume 104 FL (80-99) H Mean Corpuscular Hemoglobin 33.8 PG (27.0-31.0) H Mean Corpuscular Hemoglobin Concent 32.7 G/DL (32.0-36.0) Red Cell Distribution Width 17.2 % (11.6-14.8) H Platelet Count 263 K/UL (150-450) Mean Platelet Volume 5.0 FL (6.5-10.1) L Neutrophils (%) (Auto) 78.1 % (45.0-75.0) H Lymphocytes (%) (Auto) 8.7 % (20.0-45.0) L Monocytes (%) (Auto) 10.9 % (1.0-10.0) H Eosinophils (%) (Auto) 1.1 % (0.0-3.0) Basophils (%) (Auto) 1.2 % (0.0-2.0) Sodium Level 135 MMOL/L (136-145) L Potassium Level 4.0 MMOL/L (3.5-5.1) Chloride Level 97 MMOL/L (98-107) L Carbon Dioxide Level 36 MMOL/L (21-32) H Anion Gap 2 mmol/L (5-15) L Blood Urea Nitrogen 17 mg/dL (7-18) Creatinine 0.9 MG/DL (0.55-1.30) Estimat Glomerular Filtration Rate > 60 mL/min (>60) Glucose Level 101 MG/DL (74-106) Calcium Level 9.4 MG/DL (8.5-10.1) Intake and Output 12/02/20 12/03/20 19:00 07:00 Intake Total 1440 ml 480 ml Output Total 2375 ml 1000 ml Balance -935 ml -520 ml Intake Oral 1440 ml 480 ml Output Urine Total 2375 ml 1000 ml # Voids 1 # Bowel Movements 2 2 Objective Objective General: No acute distress, awake and alert HEENT: NCAT, sclera anicteric, PERRL, EOMI. Neck: Supple, no significant jugular venous distention, Lungs: Nasal canula; Fair inspiratory effort, , no Wheeze or Rales. Heart: Regular rate and rhythm, normal S1/S2, no murmurs Abdomen: soft, nontender, +distended. positive fluid shift, bowel sound present. / Rectal: Refused and deferred. Extremities: No Cyanosis , clubbing or edema. Neuro: A&O x 3, Able to move all extremities Skin: warm, no rash Assessment/Plan Assessment/Plan Assessment/Plan Assessment/Plan Sepsis Acute Hypoxia on BiPAP >> NRB mask >> venturi mask>>nasal canula alcohol abuse Liver Cirrhosis, Fatty liver Massive ascites renal failure DM2 HTN Plan: ABX=S/P vanco and Zosyn High volume paracentesis, COVID PCR=Neg GI=Dr Encarnacion Nephrol=Dr Pozo S/P paracentesis 11/02/20 and repeat 11/26/20 ID=Dr Banks Discharge planning=[facility] Jered Case MD Dec 03, 2020 19:24
--- NOTE | 2020-12-03 19:29 | NUR ---
NURSE NOTES: Received patient awake, alert, verbal, no SOB, comfortable.
[2020-12-04] MEDS: HYDROcodone/Acetamin 5/325 tab ORAL PRN ×2 (00:15→18:03)
[2020-12-04 04:00] VITALS: BP 113/68
[2020-12-04] MEDS: Midodrine 10mg tab ORAL SCH ×3 (06:00→22:00)
[2020-12-04] MEDS: NovoLOG Insulin Flexpen SUBQ SCH ×4 (06:02→20:09)
--- NOTE | 2020-12-04 06:23 | NUR ---
NURSE HAND-OFF: Important Events on Shift:[]Unremarkable.DCP Patient Status: [] Diet: [] Pending Orders: [] Pending Results/Labs:[] Pending MD notification:[] Latest Vital Signs: Temperature 98.6 , Pulse 95 , B/P 113 /68 , Respiratory Rate 18 , O2 SAT 97 , Bi-pap, O2 Flow Rate 3.0 . Vital Sign Comment: [] Latest Childs Fall Score: 50 Fall Risk: High Risk Safety Measures: Call light Within Reach, Bed Alarm Zone 2, Side Rails Side Rails x3, Bed position Low and Locked. Fall Precautions: Yellow Socks Yellow Gown Door Sign Patient Fall Education Report given to [].
[2020-12-04 06:37] LABS: BASOPHILS % (AUTO) 1.5 % (0.0-2.0); EOSINOPHILS % (AUTO) 1.8 % (0.0-3.0); HEMATOCRIT 28.3 % (42.0-52.0); LYMPHOCYTES % (AUTO) 13.9 % (20.0-45.0); MEAN CORPUSCULAR VOLUME 105 FL (80-99); MONOCYTES % (AUTO) 8.7 % (1.0-10.0); NEUTROPHILS % (AUTO) 74.1 % (45.0-75.0); PLATELET COUNT 300 K/UL (150-450); RED CELL DISTRIBUTION WIDTH 16.7 % (11.6-14.8); WHITE BLOOD COUNT 9.9 K/UL (4.8-10.8)
[2020-12-04 06:56] LABS: PHOSPHORUS 4.5 MG/DL (2.5-4.9)
[2020-12-04 06:58] LABS: INR 1.2 (0.9-1.1)
[2020-12-04 07:08] LABS: ALANINE AMINOTRANSFERASE 22 U/L (12-78); ALBUMIN/GLOBULIN RATIO 0.4 (1.0-2.7); ALKALINE PHOSPHATASE 149 U/L (46-116); ANION GAP 2 mmol/L (5-15); ASPARTATE AMINO TRANSFERASE 40 U/L (15-37); BILIRUBIN,TOTAL 0.7 MG/DL (0.2-1.0); BLOOD UREA NITROGEN 15 mg/dL (7-18); CALCIUM 9.5 MG/DL (8.5-10.1); CARBON DIOXIDE 38 MMOL/L (21-32); CHLORIDE 99 MMOL/L (98-107); CREATININE 0.9 MG/DL (0.55-1.30); SODIUM 138 MMOL/L (136-145)
--- NOTE | 2020-12-04 07:48 | NUR ---
NURSE NOTES: RN received patient from [facility], patient in bed. Patient is aaoX4, verbally responsive. Patient denies respiratory distress, or pain. Bed in lowest position, locked, bed alarm on. Patient refused IV insertion and MD is aware. Call light within reach and patient able to make needs known. Side bed rails up X2. Will continue to monitor.
[2020-12-04 08:00] VITALS: BP 110/71
--- NOTE | 2020-12-04 08:10 | Infectious Diseases Prog Note ---
Assessment/Plan 60yo M with: Sepsis Afebrile Hypoxia on BiPAP >> NRB mask >> venti mask>> NC Leukocytosis to 14, improving Lymphopenia 11/01 BCx NTD COVID PCR neg CXR: Elevated right hemidiaphragm. Possible right basilar airspace disease and right effusion. CTH: No acute process EtOH abuse Cirrhosis, Fatty liver Massive ascites Elevated AST to 48 Acute hep panel neg 11/01 CT A/P: CIRRHOSIS WITH LARGE AMOUNT OF ASCITES. SPLENIC GRANULOMAS. SLUDGE IN THE GALLBLADDER. SMALL RIGHT PLEURAL EFFUSION WITH COMPRESSIVE ATELECTASIS RIGHT LOWER LOBE. ELEVATED RIGHT HEMIDIAPHRAGM. 11/02 Paracentesis, 10.2L removed 838 RBC, 142 WBC, 2%PMN, 94%Hitchcock's Cx - NTD 11/26/20 - S/P paracentesis - not fluid no sent to the lab DAVIDE vs CKD, Cr 2.4, improving HIV screen neg EtOH abuse, stopped drinking in Sep 2020 Fatty liver DM2 HTN Plan: Monitor off abx as he is stable 11/11 SP Zosyn #10 11/03 SP vanco #2 Monitor CBC/CMP Monitor temp curve, hemodynamics Monitor resp status D/w RN Thank you for this consult. [facility] will continue to follow. Subjective Allergies: Coded Allergies: No Known Allergies (Unverified , 10/02/16) Afebrile No Leukocytosis No pain Objective Last 24 Hour Vital Signs Date Time Temp Pulse Resp B/P (MAP) Pulse Ox O2 Delivery O2 Flow Rate FiO2 12/04/20 04:00 98.6 95 18 113/68 (83) 97 12/04/20 00:47 98.8 12/03/20 23:37 98.8 96 20 108/76 (87) 95 12/03/20 21:08 Nasal Cannula 3.0 12/03/20 20:11 98.8 92 18 106/71 (83) 96 12/03/20 16:00 98.0 95 20 120/78 (92) 97 12/03/20 12:43 97.9 12/03/20 12:00 97.4 93 20 111/72 (85) 99 12/03/20 09:00 Nasal Cannula 3.0 Height (Feet): 6 Height (Inches): 1.00 Weight (Pounds): 200 Gen: NAD on NC HEENT: NCAT, EOMI Pulm: BL chest rise Abd: Distended, soft, +fluid wave Ext: No c/c/e Neuro: Awake, interactive Laboratory Tests Test 12/03/20 20:09 12/04/20 05:20 12/04/20 05:40 POC Whole Blood Glucose 117 MG/DL (74-106) H 84 MG/DL (74-106) White Blood Count 9.9 K/UL (4.8-10.8) Red Blood Count 2.70 M/UL (4.70-6.10) L Hemoglobin 9.0 G/DL (14.2-18.0) L Hematocrit 28.3 % (42.0-52.0) L Mean Corpuscular Volume 105 FL (80-99) H Mean Corpuscular Hemoglobin 33.4 PG (27.0-31.0) H Mean Corpuscular Hemoglobin Concent 31.9 G/DL (32.0-36.0) L Red Cell Distribution Width 16.7 % (11.6-14.8) H Platelet Count 300 K/UL (150-450) Mean Platelet Volume 5.1 FL (6.5-10.1) L Neutrophils (%) (Auto) 74.1 % (45.0-75.0) Lymphocytes (%) (Auto) 13.9 % (20.0-45.0) L Monocytes (%) (Auto) 8.7 % (1.0-10.0) Eosinophils (%) (Auto) 1.8 % (0.0-3.0) Basophils (%) (Auto) 1.5 % (0.0-2.0) Prothrombin Time 12.9 SEC (9.30-11.50) H Prothromb Time International Ratio 1.2 (0.9-1.1) H Activated Partial Thromboplast Time 30 SEC (23-33) Sodium Level 138 MMOL/L (136-145) Potassium Level 4.0 MMOL/L (3.5-5.1) Chloride Level 99 MMOL/L (98-107) Carbon Dioxide Level 38 MMOL/L (21-32) H Anion Gap 2 mmol/L (5-15) L Blood Urea Nitrogen 15 mg/dL (7-18) Creatinine 0.9 MG/DL (0.55-1.30) Estimat Glomerular Filtration Rate > 60 mL/min (>60) Glucose Level 88 MG/DL (74-106) Uric Acid 4.0 MG/DL (2.6-7.2) Calcium Level 9.5 MG/DL (8.5-10.1) Phosphorus Level 4.5 MG/DL (2.5-4.9) Magnesium Level 1.9 MG/DL (1.8-2.4) Total Bilirubin 0.7 MG/DL (0.2-1.0) Aspartate Amino Transf (AST/SGOT) 40 U/L (15-37) H Alanine Aminotransferase (ALT/SGPT) 22 U/L (12-78) Alkaline Phosphatase 149 U/L (46-116) H Total Protein 7.4 G/DL (6.4-8.2) Albumin 2.0 G/DL (3.4-5.0) L Globulin 5.4 g/dL Albumin/Globulin Ratio 0.4 (1.0-2.7) L Current Medications Medications (Trade) Dose Ordered Sig/Kylah Route PRN Reason Start Time Stop Time Status Last Admin Dose Admin Acetaminophen/ Hydrocodone Bitart ([place] 5/325) 1 tab Q6H PRN ORAL Severe Pain (Pain Scale 7-10) 12/01/20 21:00 12/08/20 20:59 12/04/20 00:15 Allopurinol (Zyloprim) 200 mg DAILY ORAL 11/04/20 15:00 12/04/20 14:59 12/03/20 09:50 Clobetasol Propionate (Temovate) 1 applic TWICE A DAY TOPIC 11/21/20 13:30 02/19/21 13:29 12/03/20 17:16 Dextrose (Dextrose 50%) 25 ml Q30M PRN IV Hypoglycemia 11/01/20 18:30 01/30/21 18:29 Dextrose (Dextrose 50%) 50 ml Q30M PRN IV Hypoglycemia 11/01/20 18:30 01/30/21 18:29 Furosemide (Lasix) 40 mg DAILY ORAL 12/01/20 11:00 12/31/20 10:59 12/03/20 09:06 Insulin Aspart (NovoLOG) BEFORE MEALS AND HS SUBQ 11/01/20 21:00 01/30/21 20:59 12/01/20 17:00 Lactulose (Cephulac) 20 gm BID ORAL 11/20/20 09:00 12/20/20 08:59 12/03/20 17:16 Magnesium Oxide (Mag-Ox 400mg) 400 mg THREE TIMES A DAY ORAL 11/13/20 13:00 12/13/20 12:59 12/03/20 17:16 Midodrine (Pro-Amatine) 10 mg Q8HR ORAL 11/02/20 14:00 01/31/21 13:59 12/03/20 13:08 Pantoprazole (Protonix) 40 mg DAILY ORAL 11/14/20 09:00 12/14/20 08:59 12/03/20 09:07 Spironolactone (Aldactone) 100 mg DAILY ORAL 12/04/20 09:00 12/16/20 08:59 Vitamin D (Vitamin D) 5,000 unit DAILY ORAL 11/16/20 09:00 12/16/20 08:59 12/03/20 09:07 Nazario Banks MD Dec 04, 2020 08:10
[2020-12-04] MEDS: Lactulose 20gm/30ml UDC ORAL SCH ×2 (08:49→17:18)
[2020-12-04] MEDS: Allopurinol 100mg Tab ORAL SCH (08:49)
[2020-12-04] MEDS: Magnesium Oxide 400mg tab ORAL SCH ×3 (08:49→17:18)
[2020-12-04] MEDS: CLOBETASOL 0.05% TOPIC SCH ×2 (08:50→17:18)
[2020-12-04] MEDS: Vitamin D 1000 units Tab ORAL SCH (08:50)
[2020-12-04] MEDS: Furosemide 40mg tab ORAL SCH (08:50)
[2020-12-04] MEDS ORDERED: Spironolactone 50mg tab ORAL SCH (09:00)
--- NOTE | 2020-12-04 09:35 | General Progress Note ---
Subjective ROS Limited/Unobtainable: Yes Allergies: Coded Allergies: No Known Allergies (Unverified , 10/02/16) Objective Last 24 Hour Vital Signs Date Time Temp Pulse Resp B/P (MAP) Pulse Ox O2 Delivery O2 Flow Rate FiO2 12/04/20 09:00 Nasal Cannula 3.0 12/04/20 08:00 97.3 98 20 110/71 (84) 97 12/04/20 04:00 98.6 95 18 113/68 (83) 97 12/04/20 00:47 98.8 12/03/20 23:37 98.8 96 20 108/76 (87) 95 12/03/20 21:08 Nasal Cannula 3.0 12/03/20 20:11 98.8 92 18 106/71 (83) 96 12/03/20 16:00 98.0 95 20 120/78 (92) 97 12/03/20 12:43 97.9 12/03/20 12:00 97.4 93 20 111/72 (85) 99 Intake and Output0 12/03/20 12/04/20 19:00 07:00 Intake Total 960 ml 480 ml Output Total 1750 ml 1100 ml Balance -790 ml -620 ml Intake Oral 960 ml 480 ml Output Urine Total 1750 ml 1100 ml # Voids 1 # Bowel Movements 2 Laboratory Tests 12/03/20 20:09: POC Whole Blood Glucose 117H 12/04/20 05:20: POC Whole Blood Glucose 84 12/04/20 05:40: White Blood Count 9.9, Red Blood Count 2.70L, Hemoglobin 9.0L, Hematocrit 28.3L, Mean Corpuscular Volume 105H, Mean Corpuscular Hemoglobin 33.4H, Mean Corpuscular Hemoglobin Concent 31.9L, Red Cell Distribution Width 16.7H, Platelet Count 300, Mean Platelet Volume 5.1L, Neutrophils (%) (Auto) 74.1, Lymphocytes (%) (Auto) 13.9L, Monocytes (%) (Auto) 8.7, Eosinophils (%) (Auto) 1.8, Basophils (%) (Auto) 1.5, Prothrombin Time 12.9H, Prothromb Time International Ratio 1.2H, Activated Partial Thromboplast Time 30, Sodium Level 138, Potassium Level 4.0, Chloride Level 99, Carbon Dioxide Level 38H, Anion Gap 2L, Blood Urea Nitrogen 15, Creatinine 0.9, Estimat Glomerular Filtration Rate > 60, Glucose Level 88, Uric Acid 4.0, Calcium Level 9.5, Phosphorus Level 4.5, Magnesium Level 1.9, Total Bilirubin 0.7, Aspartate Amino Transf (AST/SGOT) 40H, Alanine Aminotransferase (ALT/SGPT) 22, Alkaline Phosphatase 149H, Total Protein 7.4, Albumin 2.0L, Globulin 5.4, Albumin/Globulin Ratio 0.4L Height (Feet): 6 Height (Inches): 1.00 Weight (Pounds): 200 General Appearance: no apparent distress EENT: normal ENT inspection Neck: supple Cardiovascular: normal rate Respiratory/Chest: decreased breath sounds Abdomen: normal bowel sounds, non tender, soft Extremities: non-tender Assessment/Plan Problem List: (1) Cirrhosis ICD Codes: K74.60 - Unspecified cirrhosis of liver SNOMED: 60208327 (2) Hepatic encephalopathy ICD Codes: K72.90 - Hepatic failure, unspecified without coma; R65.20 - Severe sepsis without septic shock SNOMED: 66109543 (3) Hypokalemia ICD Codes: E87.6 - Hypokalemia; R65.20 - Severe sepsis without septic shock SNOMED: 73816943 (4) Ascites ICD Codes: R18.8 - Other ascites SNOMED: 353517584 (5) Severe sepsis ICD Codes: A41.9 - Sepsis, unspecified organism; R65.20 - Severe sepsis without septic shock SNOMED: 49025643 (6) AMS (altered mental status) ICD Codes: R41.82 - Altered mental status, unspecified SNOMED: 353207977 Status: stable Assessment/Plan: Assessment/Plan Problem List: (1) Cirrhosis ICD Codes: K74.60 - Unspecified cirrhosis of liver SNOMED: 92149887 (2) Hepatic encephalopathy ICD Codes: K72.90 - Hepatic failure, unspecified without coma; R65.20 - Severe sepsis without septic shock SNOMED: 46898922 (3) Hypokalemia ICD Codes: E87.6 - Hypokalemia; R65.20 - Severe sepsis without septic shock SNOMED: 79865993 (4) Ascites ICD Codes: R18.8 - Other ascites SNOMED: 216112984 (5) Severe sepsis ICD Codes: A41.9 - Sepsis, unspecified organism; R65.20 - Severe sepsis without septic shock SNOMED: 02766805 (6) AMS (altered mental status) ICD Codes: R41.82 - Altered mental status, unspecified SNOMED: 326523823 Assessment/Plan: lactulose PPI f/u ammonia level fu hepatitis panel>>> neg s/p repeat paracentesis x4 lasix aldactone repeat labs plan EGD to eval for esoph varices Mejia Encarnacion MD Dec 04, 2020 09:35
[2020-12-04] MEDS: Spironolactone 25mg tab ORAL SCH (11:31)
--- NOTE | 2020-12-04 11:48 | Surgery Progress Note ---
Surgery Progress Note Subjective Symptoms: improved, pain absent, tolerating diet, passing flatus Objective Last 24 Hour Vital Signs Date Time Temp Pulse Resp B/P (MAP) Pulse Ox O2 Delivery O2 Flow Rate FiO2 12/04/20 09:00 Nasal Cannula 3.0 12/04/20 08:00 97.3 98 20 110/71 (84) 97 12/04/20 07:00 97 Nasal Cannula 3.0 32 12/04/20 04:00 98.6 95 18 113/68 (83) 97 12/04/20 00:47 98.8 12/03/20 23:37 98.8 96 20 108/76 (87) 95 12/03/20 21:08 Nasal Cannula 3.0 12/03/20 20:11 98.8 92 18 106/71 (83) 96 12/03/20 16:00 98.0 95 20 120/78 (92) 97 12/03/20 12:43 97.9 12/03/20 12:00 97.4 93 20 111/72 (85) 99 I&O Intake and Output 12/03/20 12/04/20 19:00 07:00 Intake Total 960 ml 480 ml Output Total 1750 ml 1100 ml Balance -790 ml -620 ml Intake Oral 960 ml 480 ml Output Urine Total 1750 ml 1100 ml # Voids 1 # Bowel Movements 2 Dressing: saturated Cardiovascular: RSR Respiratory: clear, decreased breath sounds Abdomen: soft, non-tender, present bowel sounds, non-distended Extremities: no edema, no tenderness, no cyanosis Laboratory Tests Test 12/03/20 20:09 12/04/20 05:20 12/04/20 05:40 POC Whole Blood Glucose 117 MG/DL (74-106) H 84 MG/DL (74-106) White Blood Count 9.9 K/UL (4.8-10.8) Red Blood Count 2.70 M/UL (4.70-6.10) L Hemoglobin 9.0 G/DL (14.2-18.0) L Hematocrit 28.3 % (42.0-52.0) L Mean Corpuscular Volume 105 FL (80-99) H Mean Corpuscular Hemoglobin 33.4 PG (27.0-31.0) H Mean Corpuscular Hemoglobin Concent 31.9 G/DL (32.0-36.0) L Red Cell Distribution Width 16.7 % (11.6-14.8) H Platelet Count 300 K/UL (150-450) Mean Platelet Volume 5.1 FL (6.5-10.1) L Neutrophils (%) (Auto) 74.1 % (45.0-75.0) Lymphocytes (%) (Auto) 13.9 % (20.0-45.0) L Monocytes (%) (Auto) 8.7 % (1.0-10.0) Eosinophils (%) (Auto) 1.8 % (0.0-3.0) Basophils (%) (Auto) 1.5 % (0.0-2.0) Prothrombin Time 12.9 SEC (9.30-11.50) H Prothromb Time International Ratio 1.2 (0.9-1.1) H Activated Partial Thromboplast Time 30 SEC (23-33) Sodium Level 138 MMOL/L (136-145) Potassium Level 4.0 MMOL/L (3.5-5.1) Chloride Level 99 MMOL/L (98-107) Carbon Dioxide Level 38 MMOL/L (21-32) H Anion Gap 2 mmol/L (5-15) L Blood Urea Nitrogen 15 mg/dL (7-18) Creatinine 0.9 MG/DL (0.55-1.30) Estimat Glomerular Filtration Rate > 60 mL/min (>60) Glucose Level 88 MG/DL (74-106) Uric Acid 4.0 MG/DL (2.6-7.2) Calcium Level 9.5 MG/DL (8.5-10.1) Phosphorus Level 4.5 MG/DL (2.5-4.9) Magnesium Level 1.9 MG/DL (1.8-2.4) Total Bilirubin 0.7 MG/DL (0.2-1.0) Aspartate Amino Transf (AST/SGOT) 40 U/L (15-37) H Alanine Aminotransferase (ALT/SGPT) 22 U/L (12-78) Alkaline Phosphatase 149 U/L (46-116) H Total Protein 7.4 G/DL (6.4-8.2) Albumin 2.0 G/DL (3.4-5.0) L Globulin 5.4 g/dL Albumin/Globulin Ratio 0.4 (1.0-2.7) L Plan Problems: (1) Deep tissue injury Assessment & Plan: Pt presented on admission with DTPI Thoracic Spine(L)1.8cm x (W)1cm. Base of Pressure Injury is purpuric with surrounding non-blanchable erythema. Pt complained of tenderness at site. Non-Blanchable erythema without induration noted to Sacrum,R and L Gluteal cheeks including Bilat Ischial tuberosities. Rocker bottom foot noted to Both R and L feet. Both heels are callused,dry and easily blanchable. Tx.Plan: Apply Cavilon Skin Barrier To Thoracic DTPI. Cover with Optifoam drsg. Change every 3 days and prn. Apply Moisture Barrier Paste to Sacrum. Cover with Optifoam drsg. Change every 3 days and prn. Apply Cavilon Skin Barrier to R and L gluteal cheeks and Bilat Ischial tuberosities with each Incontinence care. Reposition at least every 2Hours or as tolerated. Off-load heels with pillow. (2) Hepatic encephalopathy (3) Hypokalemia (4) Ascites (5) Severe sepsis (6) Cirrhosis Assessment & Plan: distended again may need repeat para gi input There is compressive atelectasis right lower lobe. Small right effusion noted. Right hemidiaphragm is elevated. There is a large amount of ascites. Slight nodularity of the hepatic contour noted suggestive of underlying cirrhotic changes. Spleen contains some scattered granulomas. Gallbladder is isodense to liver likely containing tumefactive sludge. The pancreas is unremarkable. Adrenals are normal in morphology. The kidneys are normal in size, shape and axis. Small bowel loops are nondistended. The colon is also nondistended with average amount of stool. The appendix is not visualized. There is no free air. No pathologic adenopathy demonstrated. Urinary bladder appears unremarkable. Degenerative changes of the lumbar spine noted. IMPRESSION: CIRRHOSIS WITH LARGE AMOUNT OF ASCITES. SPLENIC GRANULOMAS. SLUDGE IN THE GALLBLADDER. SMALL RIGHT PLEURAL EFFUSION WITH COMPRESSIVE ATELECTASIS RIGHT LOWER LOBE. ELEVATED RIGHT HEMIDIAPHRAGM. (7) AMS (altered mental status) (8) Electrolyte imbalance (9) Renal failure (ARF), acute on chronic (10) Anemia (11) HTN (hypertension) (12) DMII (diabetes mellitus, type 2) Theodore Alves Dec 04, 2020 11:48
[2020-12-04 12:00] VITALS: BP 100/65
--- NOTE | 2020-12-04 13:28 | Nephrology Progress Note ---
Assessment/Plan Problem List: (1) Renal failure (ARF), acute on chronic (2) Electrolyte imbalance (3) Hypokalemia (4) Cirrhosis (5) DMII (diabetes mellitus, type 2) (6) Anemia (7) HTN (hypertension) Assessment Renal failure most likely acute on chronic Electrolyte imbalances, hypokalemia Sepsis Hepatic encephalopathy, ascites, fatty liver Anemia History of EtOH abuse, history of tobacco abuse, history of drug abuse Diabetes mellitus type 2 Hypertension Lymphopenia, leukocytosis, hypoxia Plan December 04: Labs reviewed. Renal parameters stable. Not much to add from renal standpoint of view. Disposition is in process by case sealer. December 03: Labs reviewed. Renal parameters stable. Patient full code. Stable for discharge from renal standpoint of view. Continue per consultants. December 02: Labs reviewed. Renal parameters and electrolytes stable. Patient remains full code. Continue per consultants. December 01: No CHEM panel drawn today. Status quo. Full code. Medication list reviewed. Check lab tomorrow. Overall stable from renal standpoint of vi ew. November 30: Labs reviewed. Renal parameters unchanged. Continue per GI. Not much to add from renal standpoint of view. November 29: Labs reviewed. Serum sodium 134 unchanged. Renal parameters are stable. Continue per GI. November 28: Labs reviewed. Renal parameters stable. Serum sodium 134. Continue per GI. November 27: Labs reviewed. Renal parameters stable. Continue per consultants. November 25: No CHEM panel drawn today. Patient clinically appears to be stable. Will continue to monitor electrolytes and renal parameters while in- house. Per orders. November 24: Labs reviewed. Renal parameters stable. Continues to have ascites requiring periodic Paracentesis. Not much to add from renal standpoint to view. Medication list reviewed. November 23: No CHEM panel drawn today. Clinically stable. Meds reviewed. Continue per current regimen. Check lab tomorrow. November 22: Labs reviewed. Electrolytes reasonably well-maintained. Continue per current treatment plan. November 21: Labs reviewed. Abnormal electrolytes addressed. Neutra-Phos discontinued. Continue per current management. November 20: Labs reviewed. Renal parameters stable. Massive ascites and GI discomfort persists. Medication list reviewed. November 19: Labs reviewed. Serum sodium 133. Normal saline 500 cc bolus given. Continue per consultants. November 18: Labs reviewed. Abnormal electrolytes addressed. Continue per consultants November 17: Labs reviewed. Renal parameters stable. Medication list reviewed. On Lasix and Aldactone. We will continue to monitor blood chemistries and electrolytes. November 16: Labs reviewed. Electrolytes within normal limit now. Continue her current management. November 15: Labs reviewed. Low magnesium addressed. Continue per current management. November 14: Labs reviewed. Renal parameters are stable continue per current management. Vitamin D supplement given. November 13: Labs reviewed. Normal renal parameters. Abnormal electrolytes noted and addressed. Vitamin D level results still pending November 12: Labs reviewed. Serum creatinine now within normal limits. Much improved from renal standpoint of view. November 11: Labs reviewed. Serum creatinine 1.6. Stable from renal standpoint reviewed. November 10: Labs reviewed. Serum creatinine lowered to 1.9. Continue to monitor renal parameters. Magnesium supplement ordered. November 09: No CHEM panel drawn today. Will DC Hernandez due to pain in the urethra. We will continue to monitor renal parameters. Continue per consultants. November 08: Labs reviewed. Serum creatinine 2.3 unchanged. Electrolytes within normal limit. Continue per consultants. November 07: Labs reviewed. Serum creatinine down to 2.3. Continue to monitor electrolytes. Low magnesium addressed. November 06: Labs reviewed. Serum creatinine 2.5 unchanged. Continue per consultants. November 05: Labs reviewed. Serum creatinine plateauing. Status quo. Electrolyte acceptable. Now on oxygen by cannula. Continue per consultants. November 04 labs reviewed. Patient full code. On Venturi mask. Low potassium addressed. Serum creatinine rising. Continue to monitor renal parameters. Allopurinol initiated November 03: Labs reviewed. Medication list reviewed. Abnormal electrolyte addressed. Continue monitor renal parameters. Continue per consultants. Previously: Trial of 3% saline and albumin bolus Potassium supplement Monitor renal parameters, ammonia, electrolytes ordered Subjective ROS Limited/Unobtainable: No Constitutional: Reports: malaise, weakness Objective Objective Last 24 Hour Vital Signs Date Time Temp Pulse Resp B/P (MAP) Pulse Ox O2 Delivery O2 Flow Rate FiO2 12/04/20 12:00 98.5 93 20 100/65 (77) 98 12/04/20 09:00 Nasal Cannula 3.0 12/04/20 08:00 97.3 98 20 110/71 (84) 97 12/04/20 07:00 97 Nasal Cannula 3.0 32 12/04/20 04:00 98.6 95 18 113/68 (83) 97 12/04/20 00:47 98.8 12/03/20 23:37 98.8 96 20 108/76 (87) 95 12/03/20 21:08 Nasal Cannula 3.0 12/03/20 20:11 98.8 92 18 106/71 (83) 96 12/03/20 16:00 98.0 95 20 120/78 (92) 97 Intake and Output 12/03/20 12/04/20 19:00 07:00 Intake Total 960 ml 480 ml Output Total 1750 ml 1100 ml Balance -790 ml -620 ml Intake Oral 960 ml 480 ml Output Urine Total 1750 ml 1100 ml # Voids 1 # Bowel Movements 2 Current Medications Medications (Trade) Dose Ordered Sig/Kylah Route PRN Reason Start Time Stop Time Status Last Admin Dose Admin Acetaminophen/ Hydrocodone Bitart ([place] 5/325) 1 tab Q6H PRN ORAL Severe Pain (Pain Scale 7-10) 12/01/20 21:00 12/08/20 20:59 12/04/20 00:15 Allopurinol (Zyloprim) 200 mg DAILY ORAL 11/04/20 15:00 12/04/20 14:59 12/04/20 08:49 Clobetasol Propionate (Temovate) 1 applic TWICE A DAY TOPIC 11/21/20 13:30 02/19/21 13:29 12/04/20 08:50 Dextrose (Dextrose 50%) 25 ml Q30M PRN IV Hypoglycemia 11/01/20 18:30 01/30/21 18:29 Dextrose (Dextrose 50%) 50 ml Q30M PRN IV Hypoglycemia 11/01/20 18:30 01/30/21 18:29 Furosemide (Lasix) 40 mg DAILY ORAL 12/01/20 11:00 12/31/20 10:59 12/04/20 08:50 Insulin Aspart (NovoLOG) BEFORE MEALS AND HS SUBQ 11/01/20 21:00 01/30/21 20:59 12/01/20 17:00 Lactulose (Cephulac) 20 gm BID ORAL 11/20/20 09:00 12/20/20 08:59 12/04/20 08:49 Magnesium Oxide (Mag-Ox 400mg) 400 mg THREE TIMES A DAY ORAL 11/13/20 13:00 12/13/20 12:59 12/04/20 12:51 Midodrine (Pro-Amatine) 10 mg Q8HR ORAL 11/02/20 14:00 01/31/21 13:59 12/03/20 13:08 Pantoprazole (Protonix) 40 mg DAILY ORAL 11/14/20 09:00 12/14/20 08:59 12/04/20 08:49 Spironolactone (Aldactone) 100 mg DAILY ORAL 12/04/20 10:30 01/03/21 10:29 12/04/20 11:31 Vitamin D (Vitamin D) 5,000 unit DAILY ORAL 11/16/20 09:00 12/16/20 08:59 12/04/20 08:50 Laboratory Tests 12/03/20 20:09: POC Whole Blood Glucose 117H 12/04/20 05:20: POC Whole Blood Glucose 84 12/04/20 05:40: White Blood Count 9.9, Red Blood Count 2.70L, Hemoglobin 9.0L, Hematocrit 28.3L, Mean Corpuscular Volume 105H, Mean Corpuscular Hemoglobin 33.4H, Mean Corpuscular Hemoglobin Concent 31.9L, Red Cell Distribution Width 16.7H, Platelet Count 300, Mean Platelet Volume 5.1L, Neutrophils (%) (Auto) 74.1, Lymphocytes (%) (Auto) 13.9L, Monocytes (%) (Auto) 8.7, Eosinophils (%) (Auto) 1.8, Basophils (%) (Auto) 1.5, Prothrombin Time 12.9H, Prothromb Time International Ratio 1.2H, Activated Partial Thromboplast Time 30, Sodium Level 138, Potassium Level 4.0, Chloride Level 99, Carbon Dioxide Level 38H, Anion Gap 2L, Blood Urea Nitrogen 15, Creatinine 0.9, Estimat Glomerular Filtration Rate > 60, Glucose Level 88, Uric Acid 4.0, Calcium Level 9.5, Phosphorus Level 4.5, Magnesium Level 1.9, Total Bilirubin 0.7, Aspartate Amino Transf (AST/SGOT) 40H, Alanine Aminotransferase (ALT/SGPT) 22, Alkaline Phosphatase 149H, Total Protein 7.4, Albumin 2.0L, Globulin 5.4, Albumin/Globulin Ratio 0.4L Height (Feet): 6 Height (Inches): 1.00 Weight (Pounds): 200 General Appearance: no apparent distress Cardiovascular: tachycardia Respiratory/Chest: decreased breath sounds Abdomen: distended Kalin Pozo MD Dec 04, 2020 13:28
[2020-12-04 16:00] VITALS: BP 119/78
--- NOTE | 2020-12-04 16:29 | NUR ---
NURSE NOTES: Patient gave his brother Sagar's number so that rn case mgr can speak with him regarding discharge planning. RN made Judi rn case mgr aware.
--- NOTE | 2020-12-04 17:07 | NUR ---
*-*DISCHARGE PLANNING*-* PATIENT HAS BEEN REFERRED TO: [facility] P: [phone] S/W AN[facility], CANNOT ACCEPT PATIENT DUE TO INSURANCE, NOT COVERED.
--- NOTE | 2020-12-04 17:09 | Internal Med Progress Note ---
Subjective Date of Service: Dec 04, 2020 Physician Name Jered Case Attending Physician Ramon Coombs MD Current Medications Medications (Trade) Dose Ordered Sig/Kylah Route PRN Reason Start Time Stop Time Status Last Admin Dose Admin Acetaminophen/ Hydrocodone Bitart ([place] 5/325) 1 tab Q6H PRN ORAL Severe Pain (Pain Scale 7-10) 12/01/20 21:00 12/08/20 20:59 12/04/20 00:15 Clobetasol Propionate (Temovate) 1 applic TWICE A DAY TOPIC 11/21/20 13:30 02/19/21 13:29 12/04/20 08:50 Dextrose (Dextrose 50%) 25 ml Q30M PRN IV Hypoglycemia 11/01/20 18:30 01/30/21 18:29 Dextrose (Dextrose 50%) 50 ml Q30M PRN IV Hypoglycemia 11/01/20 18:30 01/30/21 18:29 Furosemide (Lasix) 40 mg DAILY ORAL 12/01/20 11:00 12/31/20 10:59 12/04/20 08:50 Insulin Aspart (NovoLOG) BEFORE MEALS AND HS SUBQ 11/01/20 21:00 01/30/21 20:59 12/01/20 17:00 Lactulose (Cephulac) 20 gm BID ORAL 11/20/20 09:00 12/20/20 08:59 12/04/20 08:49 Magnesium Oxide (Mag-Ox 400mg) 400 mg THREE TIMES A DAY ORAL 11/13/20 13:00 12/13/20 12:59 12/04/20 12:51 Midodrine (Pro-Amatine) 10 mg Q8HR ORAL 11/02/20 14:00 01/31/21 13:59 12/04/20 14:09 Pantoprazole (Protonix) 40 mg DAILY ORAL 11/14/20 09:00 12/14/20 08:59 12/04/20 08:49 Spironolactone (Aldactone) 100 mg DAILY ORAL 12/04/20 10:30 01/03/21 10:29 12/04/20 11:31 Vitamin D (Vitamin D) 5,000 unit DAILY ORAL 11/16/20 09:00 12/16/20 08:59 12/04/20 08:50 Allergies: Coded Allergies: No Known Allergies (Unverified , 12/29/16) ROS Limited/Unobtainable: No Constitutional: Reports: no symptoms HEENT: Reports: no symptoms Cardiovascular: Reports: no symptoms Respiratory: Reports: no symptoms Gastrointestinal/Abdominal: Reports: no symptoms Genitourinary: Reports: no symptoms Neurologic/Psychiatric: Reports: no symptoms Subjective 60 YO M with history of alcohol dependence admitted with shortness of breath. Now respiratroy failure. Cover for Int Med-DR Coombs. S/P paracentesis X4. Await endoscopy Objective Last Vital Signs Date Time Temp Pulse Resp B/P (MAP) Pulse Ox O2 Delivery O2 Flow Rate FiO2 12/04/20 16:00 97.9 95 20 119/78 (92) 98 12/04/20 09:00 Nasal Cannula 3.0 12/04/20 07:00 32 Laboratory Tests Test 12/03/20 20:09 12/04/20 05:20 12/04/20 05:40 POC Whole Blood Glucose 117 MG/DL (74-106) H 84 MG/DL (74-106) White Blood Count 9.9 K/UL (4.8-10.8) Red Blood Count 2.70 M/UL (4.70-6.10) L Hemoglobin 9.0 G/DL (14.2-18.0) L Hematocrit 28.3 % (42.0-52.0) L Mean Corpuscular Volume 105 FL (80-99) H Mean Corpuscular Hemoglobin 33.4 PG (27.0-31.0) H Mean Corpuscular Hemoglobin Concent 31.9 G/DL (32.0-36.0) L Red Cell Distribution Width 16.7 % (11.6-14.8) H Platelet Count 300 K/UL (150-450) Mean Platelet Volume 5.1 FL (6.5-10.1) L Neutrophils (%) (Auto) 74.1 % (45.0-75.0) Lymphocytes (%) (Auto) 13.9 % (20.0-45.0) L Monocytes (%) (Auto) 8.7 % (1.0-10.0) Eosinophils (%) (Auto) 1.8 % (0.0-3.0) Basophils (%) (Auto) 1.5 % (0.0-2.0) Prothrombin Time 12.9 SEC (9.30-11.50) H Prothromb Time International Ratio 1.2 (0.9-1.1) H Activated Partial Thromboplast Time 30 SEC (23-33) Sodium Level 138 MMOL/L (136-145) Potassium Level 4.0 MMOL/L (3.5-5.1) Chloride Level 99 MMOL/L (98-107) Carbon Dioxide Level 38 MMOL/L (21-32) H Anion Gap 2 mmol/L (5-15) L Blood Urea Nitrogen 15 mg/dL (7-18) Creatinine 0.9 MG/DL (0.55-1.30) Estimat Glomerular Filtration Rate > 60 mL/min (>60) Glucose Level 88 MG/DL (74-106) Uric Acid 4.0 MG/DL (2.6-7.2) Calcium Level 9.5 MG/DL (8.5-10.1) Phosphorus Level 4.5 MG/DL (2.5-4.9) Magnesium Level 1.9 MG/DL (1.8-2.4) Total Bilirubin 0.7 MG/DL (0.2-1.0) Aspartate Amino Transf (AST/SGOT) 40 U/L (15-37) H Alanine Aminotransferase (ALT/SGPT) 22 U/L (12-78) Alkaline Phosphatase 149 U/L (46-116) H Total Protein 7.4 G/DL (6.4-8.2) Albumin 2.0 G/DL (3.4-5.0) L Globulin 5.4 g/dL Albumin/Globulin Ratio 0.4 (1.0-2.7) L Intake and Output 12/03/20 12/04/20 19:00 07:00 Intake Total 960 ml 480 ml Output Total 1750 ml 1100 ml Balance -790 ml -620 ml Intake Oral 960 ml 480 ml Output Urine Total 1750 ml 1100 ml # Voids 1 # Bowel Movements 2 Objective Objective General: No acute distress, awake and alert HEENT: NCAT, sclera anicteric, PERRL, EOMI. Neck: Supple, no significant jugular venous distention, Lungs: Nasal canula; Fair inspiratory effort, , no Wheeze or Rales. Heart: Regular rate and rhythm, normal S1/S2, no murmurs Abdomen: soft, nontender, +distended. positive fluid shift, bowel sound present. / Rectal: Refused and deferred. Extremities: No Cyanosis , clubbing or edema. Neuro: A&O x 3, Able to move all extremities Skin: warm, no rash Assessment/Plan Assessment/Plan Assessment/Plan Assessment/Plan Sepsis Acute Hypoxia on BiPAP >> NRB mask >> venturi mask>>nasal canula alcohol abuse Liver Cirrhosis, Fatty liver Massive ascites renal failure DM2 HTN Plan: ABX=S/P vanco and Zosyn High volume paracentesis, COVID PCR=Neg GI=Dr Encarnacion Nephrol=Dr oPzo S/P paracentesis X4 ID=Dr Banks Await endoscopy to R/O esophageal varices Jered Case MD Dec 04, 2020 17:09
--- NOTE | 2020-12-04 18:19 | NUR ---
NURSE NOTES: NC is decreased from 3 L to 2L. Patient denies respiratory distress..
--- NOTE | 2020-12-04 18:37 | NUR ---
NURSE HAND-OFF: Important Events on Shift:DC planning, wean off O2; keep O2 sat above 92%; EGD with possible biopsy 11am tomorrow; consent signed Patient Status: stable Diet: NPO midnight except ice chips and meds Pending Orders: n/a Pending Results/Labs: Pending MD notification:n/a Latest Vital Signs: Temperature 97.9 , Pulse 95 , B/P 119 /78 , Respiratory Rate 20 , O2 SAT 98 , Bi-pap, O2 Flow Rate 3.0 . Vital Sign Comment: stable Latest Childs Fall Score: 50 Fall Risk: High Risk Safety Measures: Call light Within Reach, Bed Alarm Zone 2, Side Rails Side Rails x3, Bed position Low and Locked. Fall Precautions: Yellow Socks Yellow Gown Door Sign Patient Fall Education Report given to []. Addendum: 12/04/20 at 1946 by Cody Lowry RN Report given to Pauline
[2020-12-04 20:00] VITALS: BP 105/65
--- NOTE | 2020-12-04 23:46 | NUR ---
NURSE NOTES: New IV access inserted in preparation for tomorrow's EGD procedure. Patient reminded he will be NPO at midnight, patient verbalized understanding. Currently resting comfortably in bed, no s/s of acute distress.
[2020-12-05] VITALS (8 sets, daily range): BP systolic 95–119; BP diastolic 65–77
[2020-12-05] MEDS: Midodrine 10mg tab ORAL SCH ×2 (05:24→13:08)
[2020-12-05] MEDS: NovoLOG Insulin Flexpen SUBQ SCH ×3 (05:48→16:30)
[2020-12-05 06:35] LABS: ALANINE AMINOTRANSFERASE 14 U/L (12-78); ALBUMIN 1.9 G/DL (3.4-5.0); ALBUMIN/GLOBULIN RATIO 0.4 (1.0-2.7); ALKALINE PHOSPHATASE 134 U/L (46-116); ANION GAP 3 mmol/L (5-15); ASPARTATE AMINO TRANSFERASE 27 U/L (15-37); BILIRUBIN,TOTAL 0.5 MG/DL (0.2-1.0); BLOOD UREA NITROGEN 15 mg/dL (7-18); CALCIUM 9.2 MG/DL (8.5-10.1); CARBON DIOXIDE 36 MMOL/L (21-32); CHLORIDE 98 MMOL/L (98-107); CREATININE 0.9 MG/DL (0.55-1.30); POTASSIUM 3.8 MMOL/L (3.5-5.1); SODIUM 137 MMOL/L (136-145)
[2020-12-05 06:40] LABS: BASOPHILS % (AUTO) 1.2 % (0.0-2.0); HEMATOCRIT 27.1 % (42.0-52.0); HEMOGLOBIN 8.8 G/DL (14.2-18.0); LYMPHOCYTES % (AUTO) 11.1 % (20.0-45.0); MEAN CORPUSCULAR VOLUME 104 FL (80-99); MONOCYTES % (AUTO) 7.8 % (1.0-10.0); PLATELET COUNT 292 K/UL (150-450); RED BLOOD COUNT 2.62 M/UL (4.70-6.10); RED CELL DISTRIBUTION WIDTH 16.6 % (11.6-14.8); WHITE BLOOD COUNT 10.2 K/UL (4.8-10.8)
--- NOTE | 2020-12-05 07:38 | NUR ---
NURSE NOTES: RN received report from Pauline, patient in bed. Patient is aao X4, shows no s/s of respiratory distress or pain. Patient states he pulled out the IV during his sleep. MD is aware and ok with no IV access. Call light within reach. Bed in lowest position, locked, bed alarm on. Side rails up X2. Care plan communicated. Will continue to monitor.
[2020-12-05] MEDS: Furosemide 40mg tab ORAL SCH (09:00)
[2020-12-05] MEDS: Spironolactone 25mg tab ORAL SCH (09:00)
[2020-12-05] MEDS: Lactulose 20gm/30ml UDC ORAL SCH (09:00)
[2020-12-05] MEDS: Magnesium Oxide 400mg tab ORAL SCH ×2 (09:00→13:08)
[2020-12-05] MEDS: Vitamin D 1000 units Tab ORAL SCH (09:00)
--- NOTE | 2020-12-05 09:01 | Infectious Diseases Prog Note ---
Assessment/Plan 60yo M with: Sepsis Afebrile Hypoxia on BiPAP >> NRB mask >> venti mask>> NC Leukocytosis to 14, improving Lymphopenia 11/01 BCx NTD COVID PCR neg CXR: Elevated right hemidiaphragm. Possible right basilar airspace disease and right effusion. CTH: No acute process EtOH abuse Cirrhosis, Fatty liver Massive ascites Elevated AST to 48 Acute hep panel neg 11/01 CT A/P: CIRRHOSIS WITH LARGE AMOUNT OF ASCITES. SPLENIC GRANULOMAS. SLUDGE IN THE GALLBLADDER. SMALL RIGHT PLEURAL EFFUSION WITH COMPRESSIVE ATELECTASIS RIGHT LOWER LOBE. ELEVATED RIGHT HEMIDIAPHRAGM. 11/02 Paracentesis, 10.2L removed 838 RBC, 142 WBC, 2%PMN, 94%[facility] Cx - NTD 11/26/20 - S/P paracentesis - not fluid no sent to the lab DAVIDE vs CKD, Cr 2.4, improving HIV screen neg EtOH abuse, stopped drinking in Sep 2020 Fatty liver DM2 HTN Plan: Monitor off abx 11/11 SP Zosyn #10 11/03 SP vanco #2 Monitor CBC/CMP Monitor temp curve, hemodynamics Monitor resp status D/w RN Thank you for this consult. [facility] will continue to follow. Subjective Allergies: Coded Allergies: No Known Allergies (Unverified , 10/02/16) Afebrile No Leukocytosis No pain [facility] Waiting for placement Objective Last 24 Hour Vital Signs Date Time Temp Pulse Resp B/P (MAP) Pulse Ox O2 Delivery O2 Flow Rate FiO2 12/05/20 08:00 97.8 96 20 118/74 (89) 95 12/05/20 04:00 97.8 90 22 109/72 (84) 99 12/05/20 00:00 97.7 103 22 119/77 (91) 98 12/04/20 22:08 Nasal Cannula 3.0 12/04/20 21:00 96 Nasal Cannula 2.0 28 12/04/20 20:00 97.9 90 22 105/65 (78) 98 12/04/20 18:33 97.9 12/04/20 16:00 97.9 95 20 119/78 (92) 98 12/04/20 12:00 98.5 93 20 100/65 (77) 98 Height (Feet): 6 Height (Inches): 1.00 Weight (Pounds): 200 Gen: NAD HEENT: NCAT, EOMI Pulm: BL chest rise Abd: Distended, soft, +fluid wave Ext: No c/c/e Neuro: Awake, interactive Laboratory Tests Test 12/04/20 11:15 12/04/20 16:07 12/05/20 05:27 POC Whole Blood Glucose 82 MG/DL (74-106) 118 MG/DL (74-106) H White Blood Count 10.2 K/UL (4.8-10.8) Red Blood Count 2.62 M/UL (4.70-6.10) L Hemoglobin 8.8 G/DL (14.2-18.0) L Hematocrit 27.1 % (42.0-52.0) L Mean Corpuscular Volume 104 FL (80-99) H Mean Corpuscular Hemoglobin 33.6 PG (27.0-31.0) H Mean Corpuscular Hemoglobin Concent 32.5 G/DL (32.0-36.0) Red Cell Distribution Width 16.6 % (11.6-14.8) H Platelet Count 292 K/UL (150-450) Mean Platelet Volume 5.2 FL (6.5-10.1) L Neutrophils (%) (Auto) 79.0 % (45.0-75.0) H Lymphocytes (%) (Auto) 11.1 % (20.0-45.0) L Monocytes (%) (Auto) 7.8 % (1.0-10.0) Eosinophils (%) (Auto) 1.0 % (0.0-3.0) Basophils (%) (Auto) 1.2 % (0.0-2.0) Sodium Level 137 MMOL/L (136-145) Potassium Level 3.8 MMOL/L (3.5-5.1) Chloride Level 98 MMOL/L (98-107) Carbon Dioxide Level 36 MMOL/L (21-32) H Anion Gap 3 mmol/L (5-15) L Blood Urea Nitrogen 15 mg/dL (7-18) Creatinine 0.9 MG/DL (0.55-1.30) Estimat Glomerular Filtration Rate > 60 mL/min (>60) Glucose Level 101 MG/DL (74-106) Calcium Level 9.2 MG/DL (8.5-10.1) Total Bilirubin 0.5 MG/DL (0.2-1.0) Aspartate Amino Transf (AST/SGOT) 27 U/L (15-37) Alanine Aminotransferase (ALT/SGPT) 14 U/L (12-78) Alkaline Phosphatase 134 U/L (46-116) H Total Protein 6.8 G/DL (6.4-8.2) Albumin 1.9 G/DL (3.4-5.0) L Globulin 4.9 g/dL Albumin/Globulin Ratio 0.4 (1.0-2.7) L Current Medications Medications (Trade) Dose Ordered Sig/Kylah Route PRN Reason Start Time Stop Time Status Last Admin Dose Admin Acetaminophen/ Hydrocodone Bitart ([place] 5/325) 1 tab Q6H PRN ORAL Severe Pain (Pain Scale 7-10) 12/01/20 21:00 12/08/20 20:59 12/04/20 18:03 Clobetasol Propionate (Temovate) 1 applic TWICE A DAY TOPIC 11/21/20 13:30 02/19/21 13:29 12/04/20 17:18 Dextrose (Dextrose 50%) 25 ml Q30M PRN IV Hypoglycemia 11/01/20 18:30 01/30/21 18:29 Dextrose (Dextrose 50%) 50 ml Q30M PRN IV Hypoglycemia 11/01/20 18:30 01/30/21 18:29 Furosemide (Lasix) 40 mg DAILY ORAL 12/01/20 11:00 12/31/20 10:59 12/04/20 08:50 Insulin Aspart (NovoLOG) BEFORE MEALS AND HS SUBQ 11/01/20 21:00 01/30/21 20:59 12/04/20 20:09 Lactulose (Cephulac) 20 gm BID ORAL 11/20/20 09:00 12/20/20 08:59 12/04/20 17:18 Magnesium Oxide (Mag-Ox 400mg) 400 mg THREE TIMES A DAY ORAL 11/13/20 13:00 12/13/20 12:59 12/04/20 17:18 Midodrine (Pro-Amatine) 10 mg Q8HR ORAL 11/02/20 14:00 01/31/21 13:59 12/04/20 14:09 Pantoprazole (Protonix) 40 mg DAILY ORAL 11/14/20 09:00 12/14/20 08:59 12/04/20 08:49 Spironolactone (Aldactone) 100 mg DAILY ORAL 12/04/20 10:30 01/03/21 10:29 12/04/20 11:31 Vitamin D (Vitamin D) 5,000 unit DAILY ORAL 11/16/20 09:00 12/16/20 08:59 12/04/20 08:50 Nazario Banks MD Dec 05, 2020 09:01
[2020-12-05] MEDS: CLOBETASOL 0.05% TOPIC SCH (09:05)
--- NOTE | 2020-12-05 09:40 | Pre-Procedure Note/Attestation ---
Pre-Procedure Note/Attestation Complete Prior to Procedure Planned Procedure: not applicable Procedure Narrative: egd Indications for Procedure Pre-Operative Diagnosis: cirrhosis Attestation I attest that I discussed the nature of the procedure; its benefits; risks and complications; and alternatives (and the risks and benefits of such alternatives), prior to the procedure, with the patient (or the patient's legal renewals representative). I attest that, if there was a reasonable possibility of needing a blood transfusion, the patient (or the patient's legal renewals representative) was given the [facility] standardized written summary, pursuant to the Christopher Yohan Blood Safety Act ([place] Health and Safety Code # 1645, as amended). I attest that I re-evaluated the patient just prior to the surgery and that there has been no change in the patient's H&P, except as documented below: Mejia Encarnacion MD Dec 05, 2020 09:40
--- NOTE | 2020-12-05 10:13 | Nephrology Progress Note ---
Assessment/Plan Problem List: (1) Renal failure (ARF), acute on chronic (2) Electrolyte imbalance (3) Hypokalemia (4) Cirrhosis (5) DMII (diabetes mellitus, type 2) (6) Anemia (7) HTN (hypertension) Assessment Renal failure most likely acute on chronic Electrolyte imbalances, hypokalemia Sepsis Hepatic encephalopathy, ascites, fatty liver Anemia History of EtOH abuse, history of tobacco abuse, history of drug abuse Diabetes mellitus type 2 Hypertension Lymphopenia, leukocytosis, hypoxia Plan December 05: Labs reviewed. Renal parameters stable. Continue per consultants. Discharge planning? December 04: Labs reviewed. Renal parameters stable. Not much to add from renal standpoint of view. Disposition is in process by disease case manager. December 03: Labs reviewed. Renal parameters stable. Patient full code. Stable f or discharge from renal standpoint of view. Continue per consultants. December 02: Labs reviewed. Renal parameters and electrolytes stable. Patient remains full code. Continue per consultants. December 01: No CHEM panel drawn today. Status quo. Full code. Medication list reviewed. Check lab tomorrow. Overall stable from renal standpoint of view. November 30: Labs reviewed. Renal parameters unchanged. Continue per GI. Not much to add from renal standpoint of view. November 29: Labs reviewed. Serum sodium 134 unchanged. Renal parameters are stable. Continue per GI. November 28: Labs reviewed. Renal parameters stable. Serum sodium 134. Continue per GI. November 27: Labs reviewed. Renal parameters stable. Continue per consultants. November 25: No CHEM panel drawn today. Patient clinically appears to be stable. Will continue to monitor electrolytes and renal parameters while in- house. Per orders. November 24: Labs reviewed. Renal parameters stable. Continues to have ascites requiring periodic Paracentesis. Not much to add from renal standpoint to view. Medication list reviewed. November 23: No CHEM panel drawn today. Clinically stable. Meds reviewed. Continue per current regimen. Check lab tomorrow. November 22: Labs reviewed. Electrolytes reasonably well-maintained. Continue per current treatment plan. November 21: Labs reviewed. Abnormal electrolytes addressed. Neutra-Phos discontinued. Continue per current management. November 20: Labs reviewed. Renal parameters stable. Massive ascites and GI discomfort persists. Medication list reviewed. November 19: Labs reviewed. Serum sodium 133. Normal saline 500 cc bolus given. Continue per consultants. November 18: Labs reviewed. Abnormal electrolytes addressed. Continue per cons ultants November 17: Labs reviewed. Renal parameters stable. Medication list reviewed. On Lasix and Aldactone. We will continue to monitor blood chemistries and electrolytes. November 16: Labs reviewed. Electrolytes within normal limit now. Continue her current management. November 15: Labs reviewed. Low magnesium addressed. Continue per current management. November 14: Labs reviewed. Renal parameters are stable continue per current management. Vitamin D supplement given. November 13: Labs reviewed. Normal renal parameters. Abnormal electrolytes noted and addressed. Vitamin D level results still pending November 12: Labs reviewed. Serum creatinine now within normal limits. Much improved from renal standpoint of view. November 11: Labs reviewed. Serum creatinine 1.6. Stable from renal standpoint reviewed. November 10: Labs reviewed. Serum creatinine lowered to 1.9. Continue to monitor renal parameters. Magnesium supplement ordered. November 09: No CHEM panel drawn today. Will DC Hernandez due to pain in the urethra. We will continue to monitor renal parameters. Continue per consultants. November 08: Labs reviewed. Serum creatinine 2.3 unchanged. Electrolytes within normal limit. Continue per consultants. November 07: Labs reviewed. Serum creatinine down to 2.3. Continue to monitor electrolytes. Low magnesium addressed. November 06: Labs reviewed. Serum creatinine 2.5 unchanged. Continue per consultants. November 05: Labs reviewed. Serum creatinine plateauing. Status quo. Electrolyte acceptable. Now on oxygen by cannula. Continue per consultants. November 04 labs reviewed. Patient full code. On Venturi mask. Low potassium addressed. Serum creatinine rising. Continue to monitor renal parameters. Allopurinol initiated November 03: Labs reviewed. Medication list reviewed. Abnormal electrolyte addressed. Continue monitor renal parameters. Continue per consultants. Previously: Trial of 3% saline and albumin bolus Potassium supplement Monitor renal parameters, ammonia, electrolytes ordered Subjective ROS Limited/Unobtainable: No Constitutional: Reports: malaise, weakness Objective Objective Last 24 Hour Vital Signs Date Time Temp Pulse Resp B/P (MAP) Pulse Ox O2 Delivery O2 Flow Rate FiO2 12/05/20 08:00 97.8 96 20 118/74 (89) 95 12/05/20 04:00 97.8 90 22 109/72 (84) 99 12/05/20 00:00 97.7 103 22 119/77 (91) 98 12/04/20 22:08 Nasal Cannula 3.0 12/04/20 21:00 96 Nasal Cannula 2.0 28 12/04/20 20:00 97.9 90 22 105/65 (78) 98 12/04/20 18:33 97.9 12/04/20 16:00 97.9 95 20 119/78 (92) 98 12/04/20 12:00 98.5 93 20 100/65 (77) 98 Intake and Output 0 12/04/20 12/05/20 19:00 07:00 Intake Total 960 ml 150 ml Output Total 1400 ml 1400 ml Balance -440 ml -1250 ml Intake Oral 960 ml 150 ml Output Urine Total 1400 ml 1400 ml # Bowel Movements 1 Current Medications Medications (Trade) Dose Ordered Sig/Kylah Route PRN Reason Start Time Stop Time Status Last Admin Dose Admin Acetaminophen/ Hydrocodone Bitart (Capron 5/325) 1 tab Q6H PRN ORAL Severe Pain (Pain Scale 7-10) 12/01/20 21:00 12/08/20 20:59 12/04/20 18:03 Clobetasol Propionate (Temovate) 1 applic TWICE A DAY TOPIC 11/21/20 13:30 02/19/21 13:29 12/05/20 09:05 Dextrose (Dextrose 50%) 25 ml Q30M PRN IV Hypoglycemia 11/01/20 18:30 01/30/21 18:29 Dextrose (Dextrose 50%) 50 ml Q30M PRN IV Hypoglycemia 11/01/20 18:30 01/30/21 18:29 Furosemide (Lasix) 40 mg DAILY ORAL 12/01/20 11:00 12/31/20 10:59 12/04/20 08:50 Insulin Aspart (NovoLOG) BEFORE MEALS AND HS SUBQ 11/01/20 21:00 01/30/21 20:59 12/04/20 20:09 Lactulose (Cephulac) 20 gm BID ORAL 11/20/20 09:00 12/20/20 08:59 12/04/20 17:18 Magnesium Oxide (Mag-Ox 400mg) 400 mg THREE TIMES A DAY ORAL 11/13/20 13:00 12/13/20 12:59 12/04/20 17:18 Midodrine (Pro-Amatine) 10 mg Q8HR ORAL 11/02/20 14:00 01/31/21 13:59 3/2/21 14:09 Pantoprazole (Protonix) 40 mg DAILY ORAL 11/14/20 09:00 12/14/20 08:59 12/04/20 08:49 Spironolactone (Aldactone) 100 mg DAILY ORAL 12/04/20 10:30 01/03/21 10:29 12/04/20 11:31 Vitamin D (Vitamin D) 5,000 unit DAILY ORAL 11/16/20 09:00 12/16/20 08:59 12/04/20 08:50 Laboratory Tests 12/04/20 11:15: POC Whole Blood Glucose 82 12/04/20 16:07: POC Whole Blood Glucose 118H 12/05/20 05:27: White Blood Count 10.2, Red Blood Count 2.62L, Hemoglobin 8.8L, Hematocrit 27.1L , Mean Corpuscular Volume 104H, Mean Corpuscular Hemoglobin 33.6H, Mean Corpuscular Hemoglobin Concent 32.5, Red Cell Distribution Width 16.6H, Platelet Count 292, Mean Platelet Volume 5.2L, Neutrophils (%) (Auto) 79.0H, Lymphocytes (%) (Auto) 11.1L, Monocytes (%) (Auto) 7.8, Eosinophils (%) (Auto) 1.0, Basophils (%) (Auto) 1.2, Sodium Level 137, Potassium Level 3.8, Chloride Level 98, Carbon Dioxide Level 36H, Anion Gap 3L, Blood Urea Nitrogen 15, Creatinine 0.9, Estimat Glomerular Filtration Rate > 60, Glucose Level 101, Calcium Level 9.2, Total Bilirubin 0.5, Aspartate Amino Transf (AST/SGOT) 27, Alanine Aminotransferase (ALT/SGPT) 14, Alkaline Phosphatase 134H, Total Protein 6.8, Albumin 1.9L, Globulin 4.9, Albumin/Globulin Ratio 0.4L Height (Feet): 6 Height (Inches): 1.00 Weight (Pounds): 200 General Appearance: no apparent distress Cardiovascular: tachycardia Respiratory/Chest: decreased breath sounds Abdomen: distended Kalin Pozo MD Dec 05, 2020 10:13
[2020-12-05] MEDS ORDERED: Hydromorphone 0.5mg/0.5ml inj IVP PRN (10:15)
[2020-12-05] MEDS ORDERED: HYDROcodone/Acetamin 7.5/325 tab ORAL PRN (10:15)
[2020-12-05] MEDS ORDERED: oxyCODONE HCL/Acetaminophen 5/325mg ORAL PRN (10:15)
[2020-12-05] MEDS ORDERED: fentaNYL 100 mcg/2 mL IV PRN (10:15)
[2020-12-05] MEDS ORDERED: Meperidine 25mg/1ml Inj (FOR RIGORS ONLY) IV PRN (10:15)
[2020-12-05] MEDS ORDERED: DiphenhydrAMINE 50mg/ml Inj IVP PRN (10:15)
[2020-12-05] MEDS ORDERED: Ketorolac 30mg Inj IV PRN ×2 (10:15)
[2020-12-05] MEDS ORDERED: Midazolam 2mg/2ml Inj IVP PRN (10:15)
[2020-12-05] MEDS ORDERED: LR 1000ml 1,000 ML IVLG SCH (10:15)
[2020-12-05] MEDS ORDERED: Metoclopramide 10mg/2ml Inj IVP PRN (10:15)
[2020-12-05] MEDS ORDERED: Labetalol 5mg/ml 20ml vial IV PRN (10:15)
[2020-12-05] MEDS ORDERED: HYDROcodone/Acetamin 5/325 tab ORAL PRN (10:15)
[2020-12-05] MEDS ORDERED: LORazepam Inj 2mg/ml 1ml IV PRN (10:15)
[2020-12-05] MEDS ORDERED: Atropine Sulfate 0.4mg/ml inj IVP PRN (10:15)
--- NOTE | 2020-12-05 10:17 | Anethesia Preoperative Eval ---
Anesthesia Pre-op PMH/ROS General Date of Evaluation: Dec 05, 2020 Time of Evaluation: 10:49 Anesthesiologist: Ivan ASA Score: ASA 4 Mallampati Score Class I : Soft palate, uvula, fauces, pillars visible Class II: Soft palate, uvula, fauces visible Class III: Soft palate, base of uvula visible Class IV: Only hard plate visible Mallampati Classification: Class III Surgeon: Shashank Diagnosis: Abd Pain Surgical Procedure: EGD Anesthesia History: none Family History: no anesthesia problems Allergies: Coded Allergies: No Known Allergies (Unverified , 10/02/16) Medications: see eMAR Patient NPO?: Yes Past Medical History Cardiovascular: Reports: HTN, other - HL Gastrointestinal/Genitourinary: Reports: other - Cirrohsis, Ascites Neurologic/Psychiatric: Reports: dementia Endocrine: Reports: DM Anesthesia Pre-op Phys. Exam Physician Exam Last Vital Signs Date Time Temp Pulse Resp B/P (MAP) Pulse Ox O2 Delivery O2 Flow Rate FiO2 12/05/20 08:00 97.8 96 20 118/74 (89) 95 12/04/20 22:08 Nasal Cannula 3.0 12/04/20 21:00 28 Constitutional: NAD Neurologic: CN 2-12 intact Cardiovascular: RRR Respiratory: CTA Gastrointestinal: S/NT/ND Airway Exam Mallampati Score: Class III MO: limited ROM: limited Teeth: missing, intact Anesthesia Pre-op A/P Labs Hematology Test 12/05/20 05:27 White Blood Count 10.2 K/UL (4.8-10.8) Red Blood Count 2.62 M/UL (4.70-6.10) L Hemoglobin 8.8 G/DL (14.2-18.0) L Hematocrit 27.1 % (42.0-52.0) L Mean Corpuscular Volume 104 FL (80-99) H Mean Corpuscular Hemoglobin 33.6 PG (27.0-31.0) H Mean Corpuscular Hemoglobin Concent 32.5 G/DL (32.0-36.0) Red Cell Distribution Width 16.6 % (11.6-14.8) H Platelet Count 292 K/UL (150-450) Mean Platelet Volume 5.2 FL (6.5-10.1) L Neutrophils (%) (Auto) 79.0 % (45.0-75.0) H Lymphocytes (%) (Auto) 11.1 % (20.0-45.0) L Monocytes (%) (Auto) 7.8 % (1.0-10.0) Eosinophils (%) (Auto) 1.0 % (0.0-3.0) Basophils (%) (Auto) 1.2 % (0.0-2.0) Chemistry Test 12/04/20 11:15 12/04/20 16:07 12/05/20 05:27 POC Whole Blood Glucose 82 MG/DL (74-106) 118 MG/DL (74-106) H Sodium Level 137 MMOL/L (136-145) Potassium Level 3.8 MMOL/L (3.5-5.1) Chloride Level 98 MMOL/L (98-107) Carbon Dioxide Level 36 MMOL/L (21-32) H Anion Gap 3 mmol/L (5-15) L Blood Urea Nitrogen 15 mg/dL (7-18) Creatinine 0.9 MG/DL (0.55-1.30) Estimat Glomerular Filtration Rate > 60 mL/min (>60) Glucose Level 101 MG/DL (74-106) Calcium Level 9.2 MG/DL (8.5-10.1) Total Bilirubin 0.5 MG/DL (0.2-1.0) Aspartate Amino Transf (AST/SGOT) 27 U/L (15-37) Alanine Aminotransferase (ALT/SGPT) 14 U/L (12-78) Alkaline Phosphatase 134 U/L (46-116) H Total Protein 6.8 G/DL (6.4-8.2) Albumin 1.9 G/DL (3.4-5.0) L Globulin 4.9 g/dL Albumin/Globulin Ratio 0.4 (1.0-2.7) L Risk Assessment & Plan Assessment: ASA 4 Plan: TIVA Status Change Before Surgery: No Alec Love MD Dec 05, 2020 10:17
--- NOTE | 2020-12-05 10:24 | Immediate Post-Op Evaluation ---
Immediate Post-Op Evalulation Immediate Post-Op Evalulation Procedure: EGD Date of Evaluation: Dec 05, 2020 Time of Evaluation: 11:25 IV Fluids: 200 NS Blood Products: 0 Estimated Blood Loss: 1 Urinary Output: 0 Blood Pressure Systolic: 103 Blood Pressure Diastolic: 71 Pulse Rate: 94 Respiratory Rate: 16 O2 Sat by Pulse Oximetry: 100 Temperature (Fahrenheit): 98 Pain Score (1-10): 1 Nausea: No Vomiting: No Complications 0 Patient Status: awake, reacts, patent, none Hydration Status: adequate Alec Love MD Dec 05, 2020 10:24
--- NOTE | 2020-12-05 10:24 | 48 Hour Post Anesthesia Eval ---
Post Anesthesia Evaluation Procedure: EGD Date of Evaluation: Dec 05, 2020 Time of Evaluation: 13:43 Blood Pressure Systolic: 127 0: 81 Pulse Rate: 92 Respiratory Rate: 18 Temperature (Fahrenheit): 98 O2 Sat by Pulse Oximetry: 99 Airway: patent Nausea: No Vomiting: No Pain Intensity: 2 Hydration Status: adequate Cardiopulmonary Status: Stable Mental Status/LOC: patient returned to baseline Follow-up Care/Observations: 0 Post-Anesthesia Complications: 0 Follow-up care needed: N/A Alec Love MD Dec 05, 2020 10:24
--- NOTE | 2020-12-05 10:30 | NUR ---
NURSE NOTES: Patient left the floor on the hospital bed for EGD procedure. Vitals stable, no s/s of respiratory distress or pain. Patient has been on NPO. IV on right wrist, patent, asymptomatic, clean, dry.
[2020-12-05] MEDS ORDERED: NS 500ML IVPB ONE (10:46)
--- NOTE | 2020-12-05 10:55 | Endoscopy Procedure Note ---
Endoscopy Procedure Note General Indication for Procedure: cirrhosis Procedures Performed: EGD Operative Findings/Diagnosis: gastitis Specimen: yes Pt Tolerated Procedure Well: Yes Estimated Blood Loss: none Anesthesia Anesthesiologist: karon Anesthesia: MAC Inserted Devices Implant(s) used?: No GI Core Measures 50 yrs or older w/o bx or poly: Not Applicable 10yrs. F/U recommended: Not Applicable Mejia Encarnacion MD Dec 05, 2020 10:55
[2020-12-05] MEDS ORDERED: Lidocaine 1% MPF 10mg/ml 5ml ONE (11:00)
[2020-12-05] MEDS ORDERED: LR 1000ml ONE (11:00)
--- NOTE | 2020-12-05 11:44 | Procedure Note ---
DATE OF PROCEDURE: 12/05/2020 SURGEON: Mejia Encarnacion MD. PROCEDURE: Upper endoscopy with biopsy. ANESTHESIA: Per Dr. Love. INSTRUMENT: Olympus adult flexible upper endoscope. INDICATION: Cirrhosis. REASON FOR PROCEDURE: The procedure, risks, benefits, and possible consequences, including hemorrhage, aspiration, perforation and infection, and alternative treatments, were explained to the patient/legal guardian by Dr. Mejia Encarnacion and the patient/legal guardian understood and accepted these risks. PROCEDURE IN DETAIL: After informed consent was obtained and the patient was adequately sedated, Olympus upper endoscope was advanced from mouth into the second portion of the duodenum and retroflexion was performed in the stomach. The patient had no evidence of any , no gastric varices. In the stomach, there was evidence of portal hypertensive gastropathy. Random biopsy from antrum and body was obtained to rule out H. pylori infection. The patient tolerated procedure very well without any complication. SUMMARY OF FINDINGS: 1. No esophageal or gastric varices. 2. Portal hypertensive gastropathy, status post biopsy. RECOMMENDATIONS: Followup biopsy results and treat accordingly. Mejia Encarnacion M.D. DR: En JOB#: [id number] CC:
--- NOTE | 2020-12-05 11:45 | NUR ---
NURSE NOTES: Patient came back on the floor from EGD procedure on a hospital bed with help of Alda Patton RN and violeta Mendez. Patient is sleeping but arousable. Vitals stable. No s/s of respiratory distress or pain. Will continue to monitor. Bed in lowest position, locked, bed alarm on, call light within reach.
--- NOTE | 2020-12-05 13:29 | Surgery Progress Note ---
Surgery Progress Note Subjective Symptoms: improved, pain absent, tolerating diet, voiding well, passing flatus, BM Objective Last 24 Hour Vital Signs Date Time Temp Pulse Resp B/P (MAP) Pulse Ox O2 Delivery O2 Flow Rate FiO2 12/05/20 11:25 97.8 93 26 104/68 100 Nasal Cannula 3 12/05/20 11:15 92 27 95/65 100 Simple Mask 6 12/05/20 11:10 92 26 96/71 100 Simple Mask 6 12/05/20 11:08 92 18 99 12/05/20 11:07 94 16 100 12/05/20 11:06 98.0 93 24 103/71 100 Simple Mask 6 12/05/20 09:00 Nasal Cannula 1.0 12/05/20 08:00 97.8 96 20 118/74 (89) 95 12/05/20 04:00 97.8 90 22 109/72 (84) 99 12/05/20 00:00 97.7 103 22 119/77 (91) 98 12/04/20 22:08 Nasal Cannula 3.0 12/04/20 21:00 96 Nasal Cannula 2.0 28 12/04/20 20:00 97.9 90 22 105/65 (78) 98 12/04/20 18:33 97.9 12/04/20 16:00 97.9 95 20 119/78 (92) 98 I&O Intake and Output 12/04/20 12/05/20 19:00 07:00 Intake Total 960 ml 150 ml Output Total 1400 ml 1400 ml Balance -440 ml -1250 ml Intake Oral 960 ml 150 ml Output Urine Total 1400 ml 1400 ml # Bowel Movements 1 Dressing: dry Wound: clean Cardiovascular: RSR Respiratory: clear Abdomen: soft, flat, non-tender, present bowel sounds, other Extremities: no edema, no tenderness, no cyanosis Laboratory Tests Test 12/04/20 16:07 12/05/20 05:27 POC Whole Blood Glucose 118 MG/DL (74-106) H White Blood Count 10.2 K/UL (4.8-10.8) Red Blood Count 2.62 M/UL (4.70-6.10) L Hemoglobin 8.8 G/DL (14.2-18.0) L Hematocrit 27.1 % (42.0-52.0) L Mean Corpuscular Volume 104 FL (80-99) H Mean Corpuscular Hemoglobin 33.6 PG (27.0-31.0) H Mean Corpuscular Hemoglobin Concent 32.5 G/DL (32.0-36.0) Red Cell Distribution Width 16.6 % (11.6-14.8) H Platelet Count 292 K/UL (150-450) Mean Platelet Volume 5.2 FL (6.5-10.1) L Neutrophils (%) (Auto) 79.0 % (45.0-75.0) H Lymphocytes (%) (Auto) 11.1 % (20.0-45.0) L Monocytes (%) (Auto) 7.8 % (1.0-10.0) Eosinophils (%) (Auto) 1.0 % (0.0-3.0) Basophils (%) (Auto) 1.2 % (0.0-2.0) Sodium Level 137 MMOL/L (136-145) Potassium Level 3.8 MMOL/L (3.5-5.1) Chloride Level 98 MMOL/L (98-107) Carbon Dioxide Level 36 MMOL/L (21-32) H Anion Gap 3 mmol/L (5-15) L Blood Urea Nitrogen 15 mg/dL (7-18) Creatinine 0.9 MG/DL (0.55-1.30) Estimat Glomerular Filtration Rate > 60 mL/min (>60) Glucose Level 101 MG/DL (74-106) Calcium Level 9.2 MG/DL (8.5-10.1) Total Bilirubin 0.5 MG/DL (0.2-1.0) Aspartate Amino Transf (AST/SGOT) 27 U/L (15-37) Alanine Aminotransferase (ALT/SGPT) 14 U/L (12-78) Alkaline Phosphatase 134 U/L (46-116) H Total Protein 6.8 G/DL (6.4-8.2) Albumin 1.9 G/DL (3.4-5.0) L Globulin 4.9 g/dL Albumin/Globulin Ratio 0.4 (1.0-2.7) L Plan Problems: (1) Deep tissue injury Assessment & Plan: Pt presented on admission with DTPI Thoracic Spine(L)1.8cm x (W)1cm. Base of Pressure Injury is purpuric with surrounding non-blanchable erythema. Pt complained of tenderness at site. Non-Blanchable erythema without induration noted to Sacrum,R and L Gluteal cheeks including Bilat Ischial tuberosities. Rocker bottom foot noted to Both R and L feet. Both heels are callused,dry and easily blanchable. Tx.Plan: Apply Cavilon Skin Barrier To Thoracic DTPI. Cover with Optifoam drsg. Change every 3 days and prn. Apply Moisture Barrier Paste to Sacrum. Cover with Optifoam drsg. Change every 3 days and prn. Apply Cavilon Skin Barrier to R and L gluteal cheeks and Bilat Ischial tuberosities with each Incontinence care. Reposition at least every 2Hours or as tolerated. Off-load heels with pillow. (2) Hepatic encephalopathy (3) Hypokalemia (4) Ascites (5) Severe sepsis (6) Cirrhosis Assessment & Plan: distended again may need repeat para gi input There is compressive atelectasis right lower lobe. Small right effusion noted. Right hemidiaphragm is elevated. There is a large amount of ascites. Slight nodularity of the hepatic contour not ed suggestive of underlying cirrhotic changes. Spleen contains some scattered granulomas. Gallbladder is isodense to liver likely containing tumefactive sludge. The pancreas is unremarkable. Adrenals are normal in morphology. The kidneys are normal in size, shape and axis. Small bowel loops are nondistended. The colon is also nondistended with average amount of stool. The appendix is not visualized. There is no free air. No pathologic adenopathy demonstrated. Urinary bladder appears unremarkable. Degenerative changes of the lumbar spine noted. IMPRESSION: CIRRHOSIS WITH LARGE AMOUNT OF ASCITES. SPLENIC GRANULOMAS. SLUDGE IN THE GALLBLADDER. SMALL RIGHT PLEURAL EFFUSION WITH COMPRESSIVE ATELECTASIS RIGHT LOWER LOBE. ELEVATED RIGHT HEMIDIAPHRAGM. (7) AMS (altered mental status) (8) Electrolyte imbalance (9) Renal failure (ARF), acute on chronic (10) Anemia (11) HTN (hypertension) (12) DMII (diabetes mellitus, type 2) Additional Comments d/cp Theodore Brar Dec 05, 2020 13:29
--- NOTE | 2020-12-05 13:56 | NUR ---
*-*DISCHARGE PLANNING*-* PATIENT HAS BEEN ACCEPTED TO: [facility] P: [phone] ROOM# 116 ~~~~~~~~~~~WAITING FOR DISCHARGE ORDER~~~~~~~~~~~~~~
[2020-12-05] MEDS: HYDROcodone/Acetamin 5/325 tab ORAL PRN (14:06)
--- NOTE | 2020-12-05 14:25 | NUR ---
*-*DISCHARGE PLANNED*-* PATIENT HAS BEEN ACCEPTED AND WILL BE DISCHARGED TO: [facility] P: [phone] ROOM# 116.[facility] TRANSPORTATION SET FOR 4:15PM S/W IGNACIO [id number] PLACED A CALL TO PATIENTS BOLIVAR LY, NO ANSWER UNABLE TO LEAVE VOICE MESSAGE.
[2020-12-05] MEDS ORDERED: CLOBETASOL EMOL15 GM TP (15:58)
[2020-12-05] MEDS ORDERED: FUROSEMIDE80 MG ORAL (15:59)
[2020-12-05] MEDS ORDERED: HYDROCODON-ACE1 EA15 ORAL (16:02)
[2020-12-05] MEDS ORDERED: LACTULOSE20 GM/301 ORAL (16:04)
[2020-12-05] MEDS ORDERED: PRO-AMATINE10 MG ORAL (16:05)
[2020-12-05] MEDS ORDERED: MAGNESIUM OXID400 M2 PO (16:05)
[2020-12-05] MEDS ORDERED: PANTOPRAZOLE SO40 MG ORAL (16:06)
[2020-12-05] MEDS ORDERED: SPIRONOLACTONE100 MG ORAL (16:07)
[2020-12-05] MEDS ORDERED: VITAMIN D3-ALO1 EACH PO (16:11)
[2020-12-05] MEDS ORDERED: VITAMIN D325 MC1 PO ×2 (16:17→16:27)
[2020-12-05] MEDS ORDERED: NOVOLOG100 UNITS1 SUBQ ×2 (16:36→17:06)
--- NOTE | 2020-12-05 18:26 | Internal Med Progress Note ---
Subjective Date of Service: Dec 05, 2020 Physician Name Jered Case Attending Physician Ramon Coombs MD Current Medications Medications (Trade) Dose Ordered Sig/Kylah Route PRN Reason Start Time Stop Time Status Last Admin Dose Admin Acetaminophen/ Hydrocodone Bitart (Marlin 5/325) 1 tab Q6H PRN ORAL Severe Pain (Pain Scale 7-10) 12/01/20 21:00 12/08/20 20:59 12/05/20 14:06 Clobetasol Propionate (Temovate) 1 applic TWICE A DAY TOPIC 11/21/20 13:30 02/19/21 13:29 12/05/20 09:05 Dextrose (Dextrose 50%) 25 ml Q30M PRN IV Hypoglycemia 11/01/20 18:30 01/30/21 18:29 Dextrose (Dextrose 50%) 50 ml Q30M PRN IV Hypoglycemia 11/01/20 18:30 01/30/21 18:29 Furosemide (Lasix) 40 mg DAILY ORAL 12/01/20 11:00 12/31/20 10:59 12/04/20 08:50 Insulin Aspart (NovoLOG) BEFORE MEALS AND HS SUBQ 11/01/20 21:00 01/30/21 20:59 12/04/20 20:09 Lactulose (Cephulac) 20 gm BID ORAL 11/20/20 09:00 12/20/20 08:59 12/04/20 17:18 Magnesium Oxide (Mag-Ox 400mg) 400 mg THREE TIMES A DAY ORAL 11/13/20 13:00 12/13/20 12:59 12/05/20 13:08 Midodrine (Pro-Amatine) 10 mg Q8HR ORAL 11/02/20 14:00 01/31/21 13:59 12/05/20 13:08 Pantoprazole (Protonix) 40 mg DAILY ORAL 11/14/20 09:00 12/14/20 08:59 12/04/20 08:49 Spironolactone (Aldactone) 100 mg DAILY ORAL 12/04/20 10:30 01/03/21 10:29 12/04/20 11:31 Vitamin D (Vitamin D) 5,000 unit DAILY ORAL 11/16/20 09:00 12/16/20 08:59 12/04/20 08:50 Allergies: Coded Allergies: No Known Allergies (Unverified , 12/29/16) ROS Limited/Unobtainable: No Constitutional: Reports: no symptoms HEENT: Reports: no symptoms Cardiovascular: Reports: no symptoms Respiratory: Reports: no symptoms Gastrointestinal/Abdominal: Reports: no symptoms Genitourinary: Reports: no symptoms Neurologic/Psychiatric: Reports: no symptoms Subjective 60 YO M with history of alcohol dependence admitted with shortness of breath. Now respiratroy failure. Cover for Int Med-DR Coombs. S/P paracentesis X4. S/P endoscopy 12/05/20 Objective Last Vital Signs Date Time Temp Pulse Resp B/P (MAP) Pulse Ox O2 Delivery O2 Flow Rate FiO2 12/05/20 16:00 97.7 96 18 108/68 (81) 94 12/05/20 11:30 Nasal Cannula 2.0 28 Laboratory Tests Test 12/05/20 05:27 White Blood Count 10.2 K/UL (4.8-10.8) Red Blood Count 2.62 M/UL (4.70-6.10) L Hemoglobin 8.8 G/DL (14.2-18.0) L Hematocrit 27.1 % (42.0-52.0) L Mean Corpuscular Volume 104 FL (80-99) H Mean Corpuscular Hemoglobin 33.6 PG (27.0-31.0) H Mean Corpuscular Hemoglobin Concent 32.5 G/DL (32.0-36.0) Red Cell Distribution Width 16.6 % (11.6-14.8) H Platelet Count 292 K/UL (150-450) Mean Platelet Volume 5.2 FL (6.5-10.1) L Neutrophils (%) (Auto) 79.0 % (45.0-75.0) H Lymphocytes (%) (Auto) 11.1 % (20.0-45.0) L Monocytes (%) (Auto) 7.8 % (1.0-10.0) Eosinophils (%) (Auto) 1.0 % (0.0-3.0) Basophils (%) (Auto) 1.2 % (0.0-2.0) Sodium Level 137 MMOL/L (136-145) Potassium Level 3.8 MMOL/L (3.5-5.1) Chloride Level 98 MMOL/L (98-107) Carbon Dioxide Level 36 MMOL/L (21-32) H Anion Gap 3 mmol/L (5-15) L Blood Urea Nitrogen 15 mg/dL (7-18) Creatinine 0.9 MG/DL (0.55-1.30) Estimat Glomerular Filtration Rate > 60 mL/min (>60) Glucose Level 101 MG/DL (74-106) Calcium Level 9.2 MG/DL (8.5-10.1) Total Bilirubin 0.5 MG/DL (0.2-1.0) Aspartate Amino Transf (AST/SGOT) 27 U/L (15-37) Alanine Aminotransferase (ALT/SGPT) 14 U/L (12-78) Alkaline Phosphatase 134 U/L (46-116) H Total Protein 6.8 G/DL (6.4-8.2) Albumin 1.9 G/DL (3.4-5.0) L Globulin 4.9 g/dL Albumin/Globulin Ratio 0.4 (1.0-2.7) L Intake and Output 12/04/20 12/05/20 19:00 07:00 Intake Total 960 ml 150 ml Output Total 1400 ml 1400 ml Balance -440 ml -1250 ml Intake Oral 960 ml 150 ml Output Urine Total 1400 ml 1400 ml # Bowel Movements 1 Objective Objective General: No acute distress, awake and alert HEENT: NCAT, sclera anicteric, PERRL, EOMI. Neck: Supple, no significant jugular venous distention, Lungs: Nasal canula; Fair inspiratory effort, , no Wheeze or Rales. Heart: Regular rate and rhythm, normal S1/S2, no murmurs Abdomen: soft, nontender, +distended. positive fluid shift, bowel sound present. / Rectal: Refused and deferred. Extremities: No Cyanosis , clubbing or edema. Neuro: A&O x 3, Able to move all extremities Skin: warm, no rash Assessment/Plan Assessment/Plan Assessment/Plan Assessment/Plan Sepsis Acute Hypoxia on BiPAP >> NRB mask >> venturi mask>>nasal canula alcohol abuse Liver Cirrhosis, Fatty liver Massive ascites renal failure DM2 HTN Plan: ABX=S/P vanco and Zosyn High volume paracentesis, COVID PCR=Neg GI=Dr Encarnacion Nephrol=Dr Fouladian S/P paracentesis X4 ID=Dr Banks s/P endoscopy 12/05/20 Discharge to [facility] today Jered Case MD Dec 05, 2020 18:26
--- NOTE | 2020-12-05 18:30 | NUR ---
NURSE NOTES: RN gave report to [facility] from [facility]. RN removed ID band and IV. Asymptomatic on IV site. Belongings list was not found on the patient's chart so RN created a new list. Belonging list verified and signed by patient, self RN and another RN; it is placed in the patient's chart. Patient's vitals stable, [id number], shows no s/s of respiratory distress on RA or pain. Patient is transported on a gurney with two [employer] transporters Brooks and Baldev. Medication reconciliation is done. Photos of sacrum and heels taken and uploaded. Addendum: 12/05/20 at 1921 by Cody Lowry RN Patient discharge packet given to transporters. Belongings given to transporters.
--- NOTE | 2020-12-06 13:28 | Discharge Summary ---
Discharge Summary Discharge Summary _ Date of admission: 11/01/2020 Date of discharge: 12/05/[address] Coombs History of Present Illness and Brief Hospital Course Mr. Nicole is a 60-year-old male with past medical history of alcohol abuse, fatty liver, diabetes mellitus, and hypertension, who was brought in by EMS from home for failure to thrive. Patient also reported recent multiple mechanical falls. He complained of abdominal distention and right upper abdominal pain. Patient denied any history of paracentesis. Patient was placed on BiPAP due to hypoxia. Given the elevated lactate and white blood cells, patient was started on IV fluids and broad-spectrum antibiotics. CT of abdomen and pelvis showed cirrhosis with large amount of ascites, splenic granulomas, sludge in the gallbladder, small right pleural effusion with compressive atelectasis right lower lobe, and elevated right hemidiaphragm. Patient was admitted to the hospital for further management. Patient underwent paracentesis. Patient was continued on antibiotics. Patient tested negative for hepatitis panel and HIV test. Patient received a total of 4 sessions of paracentesis throughout his hospital stay. Patient also underwent endoscopy which revealed gastritis. Patient's oxygen requirement improved throughout his hospitalization. Patient was eventually weaned off of oxygen and remained stable on room air. Patient presented on admission with pressure injuries including but not limited to thoracic spine, sacrum, bilateral gluteal cheeks, and bilateral ischial tuberosities. Wound care was in place. Patient was also evaluated by a physical therapist who found the patient to have weakness in all 4 extremities. Patient required mobility assistance. Given patient's medical condition, it was best for the patient to be placed at a shelter facility. Patient was medically stable for discharge and was discharged on 12/05/2020 to [facility]. Consultants: Surgery Dr. Alves Nephrology Dr. Barragan Infectious disease Dr. Casper Gastroenterology Dr. Encarnacion Discharge Condition Improved and stable Discharge Activity As tolerated Discharge Diet Low-sodium diet Final diagnoses Sepsis Hypoxic respiratory failure Leukocytosis Lymphopenia History of alcohol abuse Cirrhosis Fatty liver Massive ascites Acute on chronic kidney disease Hypertension Diabetes mellitus type 2 Electrolyte imbalance, hypokalemia Hepatic encephalopathy Anemia Deep tissue injury Gastritis I have been assigned to dictate discharge summary for this account. I was not involved in the patient's management Redd Short Dec 06, 2020 13:28
== END 2020-12-05 18:28 | DRG 720 ==
LOC: EDBD 13:58 → EMR 14:16 → 2W 14:55 → EDBEDREQSVC 15:39 → EDBEDREQ 15:39 → 2W 21:26 → 4E 11-10 18:38
PROC: 0W9G3ZZ Drainage of Peritoneal Cavity, Percutaneous Approach (ICD-10-PCS; 2020-11-02)
PROC: 0W9G3ZZ Drainage of Peritoneal Cavity, Percutaneous Approach (ICD-10-PCS; 2020-11-12)
PROC: 0W9G3ZZ Drainage of Peritoneal Cavity, Percutaneous Approach (ICD-10-PCS; 2020-11-16)
PROC: 0W9G3ZZ Drainage of Peritoneal Cavity, Percutaneous Approach (ICD-10-PCS; 2020-11-26)
PROC: 0DD78ZX Extraction of Stomach, Pylorus, Via Natural or Artificial Opening Endoscopic, Diagnostic (ICD-10-PCS; principal; 2020-12-05 10:49)
DX: A41.9 Sepsis, unspecified organism (principal); N17.9 Acute kidney failure, unspecified; R65.20 Severe sepsis without septic shock; I12.9 Hypertensive chronic kidney disease with stage 1 through stage 4 chronic kidney disease, or unspecified chronic kidney disease; N18.9 Chronic kidney disease, unspecified; J96.01 Acute respiratory failure with hypoxia; K70.31 Alcoholic cirrhosis of liver with ascites; F10.10 Alcohol abuse, uncomplicated; K70.0 Alcoholic fatty liver; E11.22 Type 2 diabetes mellitus with diabetic chronic kidney disease; R62.7 Adult failure to thrive; Z68.26 Body mass index [BMI] 26.0-26.9, adult; K70.40 Alcoholic hepatic failure without coma; D72.810 Lymphocytopenia; K76.6 Portal hypertension; K31.89 Other diseases of stomach and duodenum; Z91.81 History of falling; L89.156 Pressure-induced deep tissue damage of sacral region; L89.106 Pressure-induced deep tissue damage of unspecified part of back; K29.70 Gastritis, unspecified, without bleeding
CPT/HCPCS: 36415; 70450; 71045; 74176; 76942; 80048; 80053; 80061; 80076; 80202; 81001; 82140; 82248; 82306; 82550; 82607; 82728; 82746; 82803; 82962; 82977; 83036; 83605; 83690; 83735; 83880; 84100; 84153; 84300; 84443; 84484; 84550; 85007; 85025; 85610; 85730; 86140; 86703; 86705; 86709; 86710; 86803; 86850; 86900; 86901; 87040; 87070; 87086; 87205; 87340; 89051; 93005; 94003; 94150; 94660; 96361; 96365; 96367; 99291; C9399; J1815; J7030; J8499